=== PATIENT | female | born 1930 ===

== ENCOUNTER 2018-07-10 13:00 | Inpatient (IN) | payer MEDICARE, OTHER ==
[2018-07-10] MEDS ORDERED: Sodium Chloride 0.9% 500 ML IV STA (13:25)
--- NOTE | 2018-07-10 13:30 | ED PDOC ---
HPI: Abdomen Time Seen by Provider: 07/10/18 13:12 Chief Complaint (Nursing): Abdominal Pain Chief Complaint (Provider): Abdominal Pain History Per: Patient History/Exam Limitations: no limitations Onset/Duration Of Symptoms: Days (x1) Current Symptoms Are (Timing): Still Present Location Of Pain/Discomfort: Diffuse Associated Symptoms: Nausea, Diarrhea. denies: Fever, Vomiting, Chest Pain Additional Complaint(s): 87 year old female with a past medical history of coronary artery disease, hypertension, and hypercholesterolemia who is presenting to the ED for evaluation of abdominal pain onset yesterday. Patient states that she experienced some nausea yesterday but no vomiting and admits that she sometimes has diarrhea. She denies any chest pain, shortness of breath, urinary symptoms, fevers, or headaches. Patient offers no other medical complaints at this time. PMD: Ger Orozco Past Medical History Reviewed: Historical Data, Nursing Documentation, Vital Signs Vital Signs: Last Vital Signs Temp 97.3 F L 07/10/18 13:04 Pulse 99 H 07/10/18 13:04 Resp 17 07/10/18 13:04 BP 155/82 H 07/10/18 13:04 Pulse Ox 96 07/10/18 13:04 - Medical History PMH: CAD, HTN, Hypercholesterolemia - Surgical History Surgical History: Cholecystectomy Comment Only: Coronary Stent (pt denies) - Family History Family History: States: Unknown Family Hx - Social History Current smoker - smoking cessation education provided: No Alcohol: None Drugs: Denies - Home Medications Home Medications: Ambulatory Orders Medication Instructions Recorded Metoprolol Tartrate 50 mg PO DAILY 04/11/14 Omeprazole 20 mg PO DAILY 04/11/14 Pravastatin Sodium [Pravastatin] 20 mg PO HS 04/11/14 Zolpidem Tartrate [Zolpidem] 10 mg PO HS 04/11/14 Famotidine [Pepcid] 20 mg PO DAILY #4 tab 12/19/14 - Allergies Allergies/Adverse Reactions: Allergies Allergy/AdvReac Type Severity Reaction Status Date / Time acetaminophen [From Percocet] Allergy RASH Verified 07/10/18 13:08 codeine Allergy RASH Verified 07/10/18 13:08 oxycodone [From Percocet] Allergy RASH Verified 07/10/18 13:08 Review of Systems ROS Statement: Except As Marked, All Systems Reviewed And Found Negative Constitutional: Negative for: Fever Cardiovascular: Negative for: Chest Pain Respiratory: Negative for: Shortness of Breath Gastrointestinal: Positive for: Nausea, Abdominal Pain, Diarrhea. Negative for: Vomiting Genitourinary Female: Negative for: Dysuria, Frequency, Incontinence Neurological: Negative for: Headache Physical Exam - Reviewed Nursing Documentation Reviewed: Yes Vital Signs Reviewed: Yes - Physical Exam Appears: Positive for: Non-toxic, No Acute Distress Head Exam: Positive for: ATRAUMATIC, NORMAL INSPECTION, NORMOCEPHALIC Skin: Positive for: Normal Color, Warm, DRY Eye Exam: Positive for: EOMI, Normal appearance, PERRL Neck: Positive for: Normal, Painless ROM Cardiovascular/Chest: Positive for: Regular Rate, Rhythm. Negative for: Murmur Respiratory: Positive for: Normal Breath Sounds. Negative for: Respiratory Distress Gastrointestinal/Abdominal: Positive for: Soft, Tenderness (tenderness to midline of abdomen ) Back: Positive for: Normal Inspection. Negative for: L CVA Tenderness, R CVA Tenderness, Vertebral Tenderness Extremity: Positive for: Normal ROM. Negative for: Deformity, Swelling Neurological/Psych: Positive for: Awake, Alert, Normal Tone, Oriented. Negative for: Motor/Sensory Deficits - Laboratory Results Result Diagrams: 07/10/18 13:10 - ECG O2 Sat by Pulse Oximetry: 96 (RA) Pulse Ox Interpretation: Normal - Progress ED Course And Treament: 1442: Stable. Dr. Montero to fu ct and labs. Medical Decision Making Medical Decision Making: Time: 13:17 Plan: --CT Abd/Pelvis --EKG --CMP --Lipase --Troponin --ED urine Dipstick --CBC --IV Fluids --Pepcid 20 mg IVP --Zofran 4 mg IV Scribe Attestation: Documented by Janice Peraza, acting as a scribe for Emmanuel Duckworth MD. Provider Scribe Attestation: All medical record entries made by the Scribe were at my direction and personally dictated by me. I have reviewed the chart and agree that the record accurately reflects my personal performance of the history, physical exam, medical decision making, and the department course for this patient. I have also personally directed, reviewed, and agree with the discharge instructions and disposition. Disposition - Clinical Impression Clinical Impression: Abdominal pain - Patient ED Disposition Is Patient to be Admitted: Transfer of Care - Disposition Disposition: Transfer of Care Disposition Time: 14:42 Condition: FAIR Forms: [employer] Menu (Persian) Patient Signed Over To: Renay Montero
[2018-07-10] MEDS ORDERED: Iohexol 240 (50 ml) PO ONE (13:41)
[2018-07-10 14:01] LABS: BASO % 0.1 % (0.0-2.0); HEMOGLOBIN 14.8 g/dL (12.0-16.0); LYMPH # 0.8 K/uL (1.0-4.3); LYMPH % 4.8 % (20.0-40.0); MEAN CELL VOLUME 90.5 fl (81.0-99.0); MEAN CORPUSCULAR HEMOGLOBIN 29.8 pg (27.0-31.0); MEAN CORPUSCULAR HGB CONC 32.9 g/dL (33.0-37.0); MEAN PLATELET VOLUME 8.7 fl (7.2-11.7); MONO # 0.7 K/uL (0.0-0.8); MONO % 4.5 % (0.0-10.0); NEUT # 14.7 K/uL (1.8-7.0); NEUT % 90.6 % (50.0-75.0); NRBC % 0.1 % (0.0-0.0); PLATELET COUNT 228 K/uL (130-400); RBC 4.96 Mil/uL (3.80-5.20); RED CELL DISTRIBUTION WIDTH 14.2 % (11.5-14.5); WHITE BLOOD COUNT 16.3 K/uL (4.8-10.8)
[2018-07-10 14:45] LABS: ALB/GLOB RATIO 1.3 (1.0-2.1); ALBUMIN 3.8 g/dL (3.5-5.0); ALT/SGPT 14 U/L (9-52); AST/SGOT 24 U/L (14-36); BLOOD UREA NITROGEN 24 mg/dl (7-17); CALCIUM 9.8 mg/dL (8.4-10.2); GFR NON-AFRICAN AMERICAN > 60; LIPASE 115 U/L (23-300)
[2018-07-10] MEDS ORDERED: Iohexol 300 100 ML IJ ONE (15:13)
[2018-07-10] MEDS ORDERED: Sodium Chloride 0.9% 50 ML IV ONE (15:13)
--- NOTE | 2018-07-10 15:27 | ED PDOC ---
- Laboratory Results Result Diagrams: 07/10/18 13:10 07/10/18 13:10 Lab Results: Troponin I < 0.0120 ng/mL (0.00-0.120) 07/10/18 13:10 Total Bilirubin 0.7 mg/dl (0.2-1.3) 07/10/18 13:10 AST 24 U/L (14-36) 07/10/18 13:10 ALT 14 U/L (9-52) 07/10/18 13:10 Alkaline Phosphatase 73 U/L (38-126) 07/10/18 13:10 Total Protein 6.7 G/DL (6.3-8.2) 07/10/18 13:10 Albumin 3.8 g/dL (3.5-5.0) 07/10/18 13:10 Globulin 3.0 gm/dL (2.2-3.9) 07/10/18 13:10 Albumin/Globulin Ratio 1.3 (1.0-2.1) 07/10/18 13:10 Lipase 115 U/L (23-300) 07/10/18 13:10 - ECG O2 Sat by Pulse Oximetry: 96 (RA) Pulse Ox Interpretation: Normal Medical Decision Making Medical Decision Making: Time: 15:00 Patient with abdominal pain and leukocytosis was endorsed to me by Dr. Duckworth pending CT. Accession No. : [id number] Patient Name / ID : ROLANDO DIAZ D / [id number] Exam Date : 07/10/2018 15:26:46 ( Approved ) Study Comment : Sex / Age : F / 87Y Creator : Anabella Pina Dictator : Anabella Pina Big Data Developer : Maintenance Helper : Anabella Pina Approver2 : Report Date : 07/10/2018 16:24:01 My Comment : Date of service: 07/10/2018 PROCEDURE: CT Abdomen and Pelvis with contrast HISTORY: abd pain COMPARISON: None. TECHNIQUE: Contrast dose: 85 mL of Omnipaque 300 Radiation dose: Total exam DLP = 382.91 mGy-cm. This CT exam was performed using one or more of the following dose reduction techniques: Automated exposure control, adjustment of the mA and/or kV according to patient size, and/or use of iterative reconstruction technique. FINDINGS: LOWER THORAX: Subsegmental atelectatic changes at the left lung base noted. Concomitant underlying mass here cannot be excluded. Follow-up recommended. This is likely in part associated with compressive atelectasis from a large hiatal hernia in the inferior left hemithorax. LIVER: Unremarkable. No gross lesion or ductal dilatation. Small amount of fluid borders the inferior right hepatic lobe. GALLBLADDER AND BILE DUCTS: Not identified. No gross clips here seen. Clinical correlation is needed. PANCREAS: Unremarkable. No gross lesion or ductal dilatation. SPLEEN: Unremarkable. ADRENALS: Unremarkable. No mass. KIDNEYS AND URETERS: Parapelvic and bilateral renal hypodense masses probably relating to incidental concomitant renal cysts. The right appear largely parapelvic that on the left are smaller parapelvic and probably a and the larger 1 is posterior cortical measuring 1.6 cm. No hydronephrosis. No solid mass. VASCULATURE: No aortic aneurysm. There is presence of aortic atherosclerotic calcification and mural plaque on cross sectional studies. BOWEL: There is diffuse and extensive small bowel dilatation present compatible with a distal small bowel obstruction.. The dilatation extends down into the pelvis-no obstructing mass is identified. The colon is collapsed. A few colonic left and more numerous and extensive right colonic diverticuli are present. There is more extensive right sided colonic diverticulosis noted. APPENDIX: Portion of the appendix is a is believed identified and unremarkable. PERITONEUM: Trace amount of fluid is seen around the liver. Free air seen. Anterior abdominal wall postsurgical changes noted. LYMPH NODES: Unremarkable. No enlarged lymph nodes. BLADDER: Unremarkable. REPRODUCTIVE: Postmenopausal appearing uterus with large central calcification-probably an old calcified fibroid measuring approximately 13 mm in size near the fundus. No adnexal masses noted. BONES: T6 abnormal bone mineralization is noted. 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 This is in addition to prominent spondylosis. Clinical correlation with any known osseous or hematological medical pathology is needed. OTHER FINDINGS: None. IMPRESSION: Extensive small bowel dilatation without distal obstructing mass-a distal small bowel obstruction is suspect. Is fluid around the hepatic margin is noted. No free air seen. Colon is collapsed. Colonic diverticulosis-right colon greater than left. Distal small bowel obstruction was called in and directly discussed with the ER physician Dr. oMntero At 4:23 p.m. on 07/10/2018. It was also noted that the patient has a large hiatal hand hernia and this was conveyed as well in terms of any NG tube placement. Other findings as above. ELIJAH Cowan Hospitalist for Clinic patients. ELIJAH Candelaria Surgery resident. - Scribe Attestation: Documented by Janice Peraza, acting as a scribe for Renay Montero MD. Provider Scribe Attestation: All medical record entries made by the Scribe were at my direction and personal ly dictated by me. I have reviewed the chart and agree that the record accurately reflects my personal performance of the history, physical exam, medical decision making, and the department course for this patient. I have also personally directed, reviewed, and agree with the discharge instructions and disposition. Disposition - Clinical Impression Clinical Impression: Small bowel obstruction - POA Present On Arrival: None - Disposition Disposition: Admitted as In-Patient Disposition Time: 16:00 Condition: FAIR
[2018-07-10 15:47] LABS: LYMPHOCYTE 5 % (20-50); MONOCYTE 4 % (0-10); NEUTROPHIL 91 % (42-75); PLATELET ESTIMATE NORMAL (NORMAL); TOTAL CELLS COUNTED 100
--- NOTE | 2018-07-10 16:27 | CT ---
Date of service: 07/10/2018 PROCEDURE: CT Abdomen and Pelvis with contrast HISTORY: abd pain COMPARISON: None. TECHNIQUE: Contrast dose: 85 mL of Omnipaque 300 Radiation dose: Total exam DLP = 382.91 mGy-cm. This CT exam was performed using one or more of the following dose reduction techniques: Automated exposure control, adjustment of the mA and/or kV according to patient size, and/or use of iterative reconstruction technique. FINDINGS: LOWER THORAX: Subsegmental atelectatic changes at the left lung base noted. Concomitant underlying mass here cannot be excluded. Follow-up recommended. This is likely in part associated with compressive atelectasis from a large hiatal hernia in the inferior left hemithorax. LIVER: Unremarkable. No gross lesion or ductal dilatation. Small amount of fluid borders the inferior right hepatic lobe. GALLBLADDER AND BILE DUCTS: Not identified. No gross clips here seen. Clinical correlation is needed. PANCREAS: Unremarkable. No gross lesion or ductal dilatation. SPLEEN: Unremarkable. ADRENALS: Unremarkable. No mass. KIDNEYS AND URETERS: Parapelvic and bilateral renal hypodense masses probably relating to incidental concomitant renal cysts. The right appear largely parapelvic that on the left are smaller parapelvic and probably a and the larger 1 is posterior cortical measuring 1.6 cm. No hydronephrosis. No solid mass. VASCULATURE: No aortic aneurysm. There is presence of aortic atherosclerotic calcification and mural plaque on cross sectional studies. BOWEL: There is diffuse and extensive small bowel dilatation present compatible with a distal small bowel obstruction.. The dilatation extends down into the pelvis-no obstructing mass is identified. The colon is collapsed. A few colonic left and more numerous and extensive right colonic diverticuli are present. There is more extensive right sided colonic diverticulosis noted. APPENDIX: Portion of the appendix is a is believed identified and unremarkable. PERITONEUM: Trace amount of fluid is seen around the liver. Free air seen. Anterior abdominal wall postsurgical changes noted. LYMPH NODES: Unremarkable. No enlarged lymph nodes. BLADDER: Unremarkable. REPRODUCTIVE: Postmenopausal appearing uterus with large central calcification-probably an old calcified fibroid measuring approximately 13 mm in size near the fundus. No adnexal masses noted. BONES: T6 abnormal bone mineralization is noted. 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 This is in addition to prominent spondylosis. Clinical correlation with any known osseous or hematological medical pathology is needed. OTHER FINDINGS: None. IMPRESSION: Extensive small bowel dilatation without distal obstructing mass-a distal small bowel obstruction is suspect. Is fluid around the hepatic margin is noted. No free air seen. Colon is collapsed. Colonic diverticulosis-right colon greater than left. Distal small bowel obstruction was called in and directly discussed with the ER physician Dr. Montero At 4:23 p.m. on 07/10/2018. It was also noted that the patient has a large hiatal hand hernia and this was conveyed as well in terms of any NG tube placement. Other findings as above.
--- NOTE | 2018-07-10 17:16 | CP.PCM.CON ---
<Tremayne Candelaria - Last Filed: 07/11/18 01:23> History of Present Illness - History of Present Illness History of Present Illness: General Surgery Consult Note for Dr. Mendez Reason for consult: SBO 87 F with PMH that includes of hypertension, hyperlipidemia, multiple abdominal surgeries and Alzheimer's dementia presents to [facility] ED today with complaints of diffuse worsening abdominal pain for 2 days. Patient was seen and evaluated in the ED. She also reports associated with abdominal bloating, poor appetite and nausea. Patient reports she has intermittent abdominal pain for 6 months but got worse last 2 days. Reports last BM 1 day ago. Patient reports to passing flatus today. Patient reports having a presumed left hemicolectomy about 30 yrs ago for diverticulitis. She also admits to previous SBOs. Denies fever/chills, chest pain, dyspnea, diarrhea, incontinence, urinary symptoms. PMD: Dr. Orozco PMH: hypertension, hyperlipidemia, GERD, insomnia, Alzheimer's dementia, diverticulitis, diverticulosis PSH: open cholecystectomy, left hemicolectomy for diverticulitis, Allergies: Percocet causes hallucination; Codeine causes rash; tylenol Meds: family friend to bring in list Social: denies smoking cigarettes, drinking Etoh or illicit drugs Review of Systems - Review of Systems All systems: reviewed and no additional remarkable complaints except (as per HPI) Past Patient History - Past Social History Alcohol: None Drugs: Denies - CARDIAC Hx Hypercholesterolemia: Yes Hx Hypertension: Yes - GASTROINTESTINAL Other/Comment: hx abdominal surgeries - PSYCHIATRIC Hx Substance Use: No - SURGICAL HISTORY Hx Cholecystectomy: Yes Hx Coronary Stent: (pt denies) - ANESTHESIA Hx Anesthesia: Yes Meds Allergies/Adverse Reactions: Allergies Allergy/AdvReac Type Severity Reaction Status Date / Time acetaminophen [From Percocet] Allergy RASH Verified 07/10/18 13:08 codeine Allergy RASH Verified 07/10/18 13:08 oxycodone [From Percocet] Allergy RASH Verified 07/10/18 13:08 - Medications Medications: Current Medications Sodium Chloride (Sodium Chloride 0.9%) 500 mls @ 100 mls/hr IV .Q5H STA Stop: 07/10/18 18:24 Last Admin: 07/10/18 13:44 Dose: 100 mls/hr Physical Exam - Constitutional Appears: No Acute Distress - Head Exam Head Exam: ATRAUMATIC, NORMOCEPHALIC - Eye Exam Eye Exam: EOMI, Normal appearance Pupil Exam: PERRL - ENT Exam ENT Exam: Mucous Membranes Moist - Respiratory Exam Respiratory Exam: NORMAL BREATHING PATTERN - Cardiovascular Exam Cardiovascular Exam: REGULAR RHYTHM - GI/Abdominal Exam GI & Abdominal Exam: Distended (mild), Hypoactive Bowel Sounds, Soft. absent: Firm, Guarding, Hernia, Rigid, Tenderness Additional comments: mildine scar from laparotomy, quentin scar from open cholecystectomy - Rectal Exam Rectal Exam: Deferred - Extremities Exam Extremities exam: Positive for: normal capillary refill, pedal pulses present. Negative for: calf tenderness - Back Exam Back exam: absent: CVA tenderness (L), CVA tenderness (R) - Neurological Exam Neurological exam: Alert - Psychiatric Exam Psychiatric exam: Normal Affect, Normal Mood - Skin Skin Exam: Dry, Intact, Normal Color, Warm Results - Vital Signs Recent Vital Signs: Last Vital Signs Temp 97.3 F L 07/10/18 13:04 Pulse 99 H 07/10/18 13:04 Resp 17 07/10/18 13:04 BP 155/82 H 07/10/18 13:04 Pulse Ox 96 07/10/18 15:27 - Labs Result Diagrams: 07/10/18 13:10 07/10/18 13:10 Labs: Laboratory Results - last 24 hr 07/10/18 07/10/18 13:10 13:10 WBC 16.3 H D RBC 4.96 Hgb 14.8 Hct 44.9 MCV 90.5 MCH 29.8 MCHC 32.9 L RDW 14.2 Plt Count 228 MPV 8.7 Neut % (Auto) 90.6 H Lymph % (Auto) 4.8 L [place] % (Auto) 4.5 Eos % (Auto) 0.0 Baso % (Auto) 0.1 Neut # (Auto) 14.7 H Lymph # (Auto) 0.8 L [place] # (Auto) 0.7 Eos # (Auto) 0.0 Baso # (Auto) 0.0 Neutrophils % (Manual) 91 H Lymphocytes % (Manual) 5 L Monocytes % (Manual) 4 Platelet Estimate Normal RBC Morphology Normal Sodium 137 Potassium 3.9 Chloride 102 Carbon Dioxide 22 Anion Gap 17 BUN 24 H Creatinine 0.8 Est GFR ( Amer) > 60 Est GFR (Non-Af Amer) > 60 Random Glucose 126 H Calcium 9.8 Total Bilirubin 0.7 AST 24 ALT 14 Alkaline Phosphatase 73 Troponin I < 0.0120 Total Protein 6.7 Albumin 3.8 Globulin 3.0 Albumin/Globulin Ratio 1.3 Lipase 115 Assessment & Plan - Assessment and Plan (Free Text) Assessment: 87 F with PMH that includes of hypertension, hyperlipidemia, multiple abdominal surgeries and Alzheimer's dementia presents with SBO Plan: -NPO -NGT insertion -low intermittent suction -Pain control -Anti-emetics PRN -Strict I's & O's -ENcourage ambulation and OOB -Serial abd exams -Monitor for Bowel function -Discussed with Dr. Nascimento PGY2 - Date & Time Date: 07/11/18 Time: 19:36 <Wilder Bullock - Last Filed: 07/11/18 12:22> Meds - Medications Medications: Current Medications Alprazolam (Xanax) 0.5 mg NG HS PRN PRN Reason: Anxiety Last Admin: 07/10/18 22:39 Dose: 0.5 mg Bacitracin (Bacitracin Oint) 1 applic TOP BID [facility] Last Admin: 07/11/18 08:47 Dose: 1 applic Donepezil HCl (Aricept) 10 mg NG HS [facility] Last Admin: 07/10/18 22:39 Dose: 10 mg Lactated Ringer's (Lactated Ringer's) 1,000 mls @ 125 mls/hr IV .Q8H [facility] Last Admin: 07/11/18 08:48 Dose: 125 mls/hr Ketorolac Tromethamine (Toradol) 15 mg IVP Q6 PRN PRN Reason: Pain, moderate (4-7) Ketorolac Tromethamine (Toradol) 30 mg IVP Q6 PRN PRN Reason: Pain, severe (8-10) Last Admin: 07/11/18 08:41 Dose: 30 mg Metoprolol Succinate (Toprol Xl) 50 mg PO DAILY [facility] Last Admin: 07/11/18 08:47 Dose: 50 mg Mirtazapine (Remeron) 30 mg PO HS [facility] Last Admin: 07/10/18 22:39 Dose: 30 mg Ondansetron HCl (Zofran Inj) 4 mg IVP Q6 PRN PRN Reason: Nausea/Vomiting Last Admin: 07/10/18 20:15 Dose: 4 mg Pantoprazole Sodium (Protonix Inj) 40 mg IVP DAILY [facility] Last Admin: 07/11/18 08:44 Dose: 40 mg Pravastatin Sodium (Pravachol) 20 mg PO HS [facility] Last Admin: 07/10/18 22:39 Dose: 20 mg Results - Vital Signs Recent Vital Signs: Last Vital Signs Temp 98.2 F 07/11/18 08:22 Pulse 80 07/11/18 08:47 Resp 18 07/11/18 08:22 BP 116/68 07/11/18 08:47 Pulse Ox 93 L 07/11/18 08:22 - Labs Result Diagrams: 07/11/18 05:35 07/11/18 05:35 Labs: Laboratory Results - last 24 hr 07/10/18 07/10/18 07/10/18 13:10 13:10 19:55 WBC 16.3 H D RBC 4.96 Hgb 14.8 Hct 44.9 MCV 90.5 MCH 29.8 MCHC 32.9 L RDW 14.2 Plt Count 228 MPV 8.7 Neut % (Auto) 90.6 H Lymph % (Auto) 4.8 L [place] % (Auto) 4.5 Eos % (Auto) 0.0 Baso % (Auto) 0.1 Neut # (Auto) 14.7 H Lymph # (Auto) 0.8 L [place] # (Auto) 0.7 Eos # (Auto) 0.0 Baso # (Auto) 0.0 Neutrophils % (Manual) 91 H Lymphocytes % (Manual) 5 L Monocytes % (Manual) 4 Platelet Estimate Normal RBC Morphology Normal PT INR APTT Sodium 137 Potassium 3.9 Chloride 102 Carbon Dioxide 22 Anion Gap 17 BUN 24 H Creatinine 0.8 Est GFR ( Amer) > 60 Est GFR (Non-Af Amer) > 60 Random Glucose 126 H Lactic Acid Calcium 9.8 Phosphorus Magnesium Total Bilirubin 0.7 AST 24 ALT 14 Alkaline Phosphatase 73 Troponin I < 0.0120 Total Protein 6.7 Albumin 3.8 Globulin 3.0 Albumin/Globulin Ratio 1.3 Lipase 115 Urine Color Yellow Urine Clarity Clear Urine pH 6.0 Ur Specific [place] > 1.060 H Urine Protein Negative Urine Glucose (UA) Neg Urine Ketones Negative Urine Blood Negative Urine Nitrate Negative Urine Bilirubin Negative Urine Urobilinogen 0.2-1.0 Ur Leukocyte Esterase Neg Urine RBC (Auto) 1 Urine Microscopic WBC 3 Ur Squamous Epith Cells 1 Blood Type Antibody Screen BBK History Checked 07/10/18 07/10/18 07/11/18 20:00 20:00 05:35 WBC 3.3 L D RBC 4.91 Hgb 14.7 Hct 44.4 MCV 90.5 MCH 30.1 MCHC 33.2 RDW 14.4 Plt Count 212 MPV 8.7 Neut % (Auto) 54.6 Lymph % (Auto) 30.2 [place] % (Auto) 14.2 H Eos % (Auto) 0.6 Baso % (Auto) 0.4 Neut # (Auto) 1.8 Lymph # (Auto) 1.0 [place] # (Auto) 0.5 Eos # (Auto) 0.0 Baso # (Auto) 0.0 Neutrophils % (Manual) Lymphocytes % (Manual) Monocytes % (Manual) Platelet Estimate RBC Morphology PT 12.1 INR 1.1 APTT 32.2 Sodium Potassium Chloride Carbon Dioxide Anion Gap BUN Creatinine Est GFR ( Amer) Est GFR (Non-Af Amer) Random Glucose Lactic Acid Calcium Phosphorus Magnesium Total Bilirubin AST ALT Alkaline Phosphatase Troponin I Total Protein Albumin Globulin Albumin/Globulin Ratio Lipase Urine Color Urine Clarity Urine pH Ur Specific [place] Urine Protein Urine Glucose (UA) Urine Ketones Urine Blood Urine Nitrate Urine Bilirubin Urine Urobilinogen Ur Leukocyte Esterase Urine RBC (Auto) Urine Microscopic WBC Ur Squamous Epith Cells Blood Type A POSITIVE Antibody Screen Negative BBK History Checked Patient has bt 07/11/18 07/11/18 05:35 06:20 WBC RBC Hgb Hct MCV MCH MCHC RDW Plt Count MPV Neut % (Auto) Lymph % (Auto) [place] % (Auto) Eos % (Auto) Baso % (Auto) Neut # (Auto) Lymph # (Auto) [place] # (Auto) Eos # (Auto) Baso # (Auto) Neutrophils % (Manual) Lymphocytes % (Manual) Monocytes % (Manual) Platelet Estimate RBC Morphology PT INR APTT Sodium 138 Potassium 3.7 Chloride 99 Carbon Dioxide 26 Anion Gap 17 BUN 23 H Creatinine 1.1 Est GFR ( Amer) 57 Est GFR (Non-Af Amer) 47 Random Glucose 106 H Lactic Acid 1.5 Calcium 9.4 Phosphorus 3.9 Magnesium 1.8 Total Bilirubin 1.0 AST 19 ALT 20 Alkaline Phosphatase 70 Troponin I Total Protein 6.4 Albumin 3.6 Globulin 2.8 Albumin/Globulin Ratio 1.3 Lipase Urine Color Urine Clarity Urine pH Ur Specific [place] Urine Protein Urine Glucose (UA) Urine Ketones Urine Blood Urine Nitrate Urine Bilirubin Urine Urobilinogen Ur Leukocyte Esterase Urine RBC (Auto) Urine Microscopic WBC Ur Squamous Epith Cells Blood Type Antibody Screen BBK History Checked Assessment & Plan - Assessment and Plan (Free Text) Plan: All medical record entries made by the resident were at my direction. I have reviewed the chart and agree that the record accurately reflects my personal performance of the history, physical exam, medical decision making. I have also personally directed, reviewed, and agree with the managemet plan
--- NOTE | 2018-07-10 19:36 | CP.PCM.HP ---
History of Present Illness - History of Present Illness History of Present Illness: History obtained from patient, patient's niece over the phone and review of medical record. CC: abdominal pain HPI: 87 year old female with PMHx hypertension, hyperlipidemia, GERD, insomnia and cognitive impairement presents to [facility] ED today with complaints of diffuse worsening abdominal pain x 2 days associated with abdominal bloating, poor appetite and nausea. Patient reports she has intermittent abdominal pain for 6 months but got worse last 2 days. Reports last BM yesterday (small and hard stool) and last flatus last night at 9 pm. Patient reports hx partial colectomy >30 yrs ago due to colon mass but denies having any colon CA. Denies vomiting, fever or chills. Denies chest pain, dyspnea, cough or dysuria. ROS: All 12 systems reviewed and negative except as mentioned above PMD: Dr. Orozco PMHx: hypertension, hyperlipidemia, GERD, insomnia , cognitive impairement, colon mass s/p resection >30 yrs ago. Surgical hx: cholecystectomy, hx partial colectomy >30 yrs ago Social hx: denies smoking cigarettes, drinking Etoh or using drugs Allergies: Percocet causes hallucination; Codeine causes rash Meds: reviewed Present on Admission - Present on Admission Any Indicators Present on Admission: No Review of Systems - Review of Systems Review of Systems: All 12 systems reviewed and negative except as mentioned in HPI Past Patient History - Past Social History Alcohol: None Drugs: Denies - CARDIAC Hx Hypercholesterolemia: Yes Hx Hypertension: Yes - GASTROINTESTINAL Other/Comment: hx abdominal surgeries - PSYCHIATRIC Hx Substance Use: No - SURGICAL HISTORY Hx Cholecystectomy: Yes Hx Coronary Stent: (pt denies) - ANESTHESIA Hx Anesthesia: Yes Meds Allergies/Adverse Reactions: Allergies Allergy/AdvReac Type Severity Reaction Status Date / Time acetaminophen [From Percocet] Allergy RASH Verified 07/10/18 13:08 codeine Allergy RASH Verified 07/10/18 13:08 oxycodone [From Percocet] Allergy RASH Verified 07/10/18 13:08 Physical Exam - Constitutional Appears: Non-toxic, No Acute Distress - Head Exam Head Exam: NORMAL INSPECTION - Eye Exam Eye Exam: Normal appearance - ENT Exam ENT Exam: Mucous Membranes Moist - Neck Exam Neck exam: Positive for: Normal Inspection - Respiratory Exam Respiratory Exam: Clear to Auscultation Bilateral, NORMAL BREATHING PATTERN. absent: Rales, Rhonchi, Wheezes - Cardiovascular Exam Cardiovascular Exam: REGULAR RHYTHM, +S1, +S2 - GI/Abdominal Exam GI & Abdominal Exam: Distended, Hyperactive Bowel Sounds, Soft, Tenderness (mild lower abdominal tenderness.). absent: Guarding, Rebound, Rigid - Extremities Exam Extremities exam: Positive for: normal inspection. Negative for: calf tenderness - Back Exam Back exam: absent: CVA tenderness (L), CVA tenderness (R) - Neurological Exam Neurological exam: Alert, Oriented x3 - Psychiatric Exam Psychiatric exam: Anxious, Normal Affect - Skin Skin Exam: Normal Color Results - Vital Signs Recent Vital Signs: Last Vital Signs Temp 97.3 F L 07/10/18 13:04 Pulse 99 H 07/10/18 13:04 Resp 17 07/10/18 13:04 BP 155/82 H 07/10/18 13:04 Pulse Ox 96 07/10/18 15:27 - Labs Result Diagrams: 07/10/18 13:10 07/10/18 13:10 Labs: Laboratory Results - last 24 hr 07/10/18 07/10/18 13:10 13:10 WBC 16.3 H D RBC 4.96 Hgb 14.8 Hct 44.9 MCV 90.5 MCH 29.8 MCHC 32.9 L RDW 14.2 Plt Count 228 MPV 8.7 Neut % (Auto) 90.6 H Lymph % (Auto) 4.8 L [place] % (Auto) 4.5 Eos % (Auto) 0.0 Baso % (Auto) 0.1 Neut # (Auto) 14.7 H Lymph # (Auto) 0.8 L [place] # (Auto) 0.7 Eos # (Auto) 0.0 Baso # (Auto) 0.0 Neutrophils % (Manual) 91 H Lymphocytes % (Manual) 5 L Monocytes % (Manual) 4 Platelet Estimate Normal RBC Morphology Normal Sodium 137 Potassium 3.9 Chloride 102 Carbon Dioxide 22 Anion Gap 17 BUN 24 H Creatinine 0.8 Est GFR ( Amer) > 60 Est GFR (Non-Af Amer) > 60 Random Glucose 126 H Calcium 9.8 Total Bilirubin 0.7 AST 24 ALT 14 Alkaline Phosphatase 73 Troponin I < 0.0120 Total Protein 6.7 Albumin 3.8 Globulin 3.0 Albumin/Globulin Ratio 1.3 Lipase 115 Assessment & Plan - Assessment and Plan (Free Text) Assessment: 87 year old female with PMHx hypertension, hyperlipidemia, GERD, insomnia and cognitive impairement presents to [facility] ED today with complaints of diffuse worsening abdominal pain x 2 days associated with abdominal bloating, poor appetite and nausea. in the ED, CT A/P shows small bowel obstruction. Patient is admitted for management of SBO Plan: Small bowel obstruction with leukocytosis -CT A/P: IMPRESSION:Extensive small bowel dilatation without distal obstructing mass-a distal small bowel obstruction is suspect. Is fluid around the hepatic margin is noted. No free air seen. Colon is collapsed. Colonic diverticulosis-right colon greater than left. It was also noted that the patient has a large hiatal hand hernia and this was conveyed as well in terms of any NG tube placement. -Afebrile with elevated BP -WBC 16.3 likely secondary to volume contaction and dehydration -Consult general surgery, Dr. Mendez, f/u recs -NPO -NGT placement by general surgery -Pain management with toradol for now considering hx of percocet and codeine reactions -Anti-emetics -Monitor symptoms -f/u AM labs, UA, urine cx Hiatal hernia -c/w protonix 40 mg IVP Hypertension -resume metoprolol succinated 50 mg ER Hyperlipidemia -resume pravastatin 20 mg po hs GERD -start protonix 40 mg IVP Cognitive impairment -resume aricept Insominia/anxiety -resume remeron and aricept DVT prophylaxis -SCDs for now Plan discussed with Dr. Ernesto Hawkins, pgy-2
[2018-07-10] MEDS ORDERED: Chlorhexidine Gluconate 1 APPL/PKT TP ONE (20:04)
[2018-07-10] MEDS: Lactated Ringer's 1,000 ML IV SCH (20:27)
[2018-07-10 21:18] LABS: INR 1.1; PROTHROMBIN TIME 12.1 Seconds (9.8-13.1)
[2018-07-10 21:20] LABS: PARTIAL THROMBOPLASTIN TIME 32.2 Seconds (25.6-37.1)
[2018-07-10 21:23] LABS: SQUAMOUS EPITHIAL 1 /hpf (0-5); URINE BILIRUBIN NEGATIVE (NEGATIVE); URINE BLOOD NEGATIVE (NEGATIVE); URINE CLARITY CLEAR (Clear); URINE COLOR YELLOW (YELLOW); URINE GLUCOSE (UA) NEG (NEGATIVE); URINE LEUKOCYTE ESTERASE NEG Leu/uL (Negative); URINE PROTEIN NEGATIVE (NEGATIVE); URINE UROBILINOGEN 0.2-1.0 mg/dL (0.2-1.0)
[2018-07-10] MEDS: Pravastatin Sodium 20 MG TAB PO SCH (22:39)
[2018-07-10] MEDS: Bacitracin OINT 15GM TOP SCH (22:41)
[2018-07-11 04:30] VITALS: BMI 24.3
[2018-07-11 06:54] LABS: BASO % 0.4 % (0.0-2.0); EOS % 0.6 % (0.0-4.0); HEMOGLOBIN 14.7 g/dL (12.0-16.0); LYMPH % 30.2 % (20.0-40.0); MEAN CELL VOLUME 90.5 fl (81.0-99.0); MEAN CORPUSCULAR HEMOGLOBIN 30.1 pg (27.0-31.0); MEAN CORPUSCULAR HGB CONC 33.2 g/dL (33.0-37.0); MEAN PLATELET VOLUME 8.7 fl (7.2-11.7); MONO # 0.5 K/uL (0.0-0.8); MONO % 14.2 % (0.0-10.0); NEUT # 1.8 K/uL (1.8-7.0); NEUT % 54.6 % (50.0-75.0); NRBC % 0.1 % (0.0-0.0); RBC 4.91 Mil/uL (3.80-5.20); RED CELL DISTRIBUTION WIDTH 14.4 % (11.5-14.5)
[2018-07-11 07:10] LABS: WHITE BLOOD COUNT 3.3 K/uL (4.8-10.8)
[2018-07-11 07:17] LABS: ALB/GLOB RATIO 1.3 (1.0-2.1); ALBUMIN 3.6 g/dL (3.5-5.0); CALCIUM 9.4 mg/dL (8.4-10.2)
--- NOTE | 2018-07-11 07:57 | CP.PCM.PN ---
<Wolfgang Tanner - Last Filed: 07/12/18 06:42> Subjective - Date & Time of Evaluation Date of Evaluation: 07/11/18 Time of Evaluation: 07:55 - Subjective Subjective: General Surgery Consult Note for Dr. Mendez 87 F with PMH that includes of hypertension, hyperlipidemia, multiple abdominal surgeries and Alzheimer's dementia seen and evaluated at bedside. Patient states pain has improved since yesterday. Patient denies flatus or bowel movement at this time. Denies fever/chills, chest pain, dyspnea, diarrhea, incontinence, u rinary symptoms. Objective - Vital Signs/Intake and Output Vital Signs (last 24 hours): Temp Pulse Resp BP Pulse Ox 98.0 F 76 18 123/69 92 L 07/10/18 23:57 07/10/18 23:57 07/10/18 23:57 07/10/18 23:57 07/10/18 23:57 - Medications Medications: Current Medications Alprazolam (Xanax) 0.5 mg NG HS PRN PRN Reason: Anxiety Last Admin: 07/10/18 22:39 Dose: 0.5 mg Bacitracin (Bacitracin Oint) 1 applic TOP BID [facility] Last Admin: 07/10/18 22:41 Dose: 1 applic Donepezil HCl (Aricept) 10 mg NG HS [facility] Last Admin: 07/10/18 22:39 Dose: 10 mg Lactated Ringer's (Lactated Ringer's) 1,000 mls @ 125 mls/hr IV .Q8H [facility] Last Admin: 07/10/18 20:27 Dose: 125 mls/hr Ketorolac Tromethamine (Toradol) 15 mg IVP Q6 PRN PRN Reason: Pain, moderate (4-7) Ketorolac Tromethamine (Toradol) 30 mg IVP Q6 PRN PRN Reason: Pain, severe (8-10) Last Admin: 07/10/18 20:12 Dose: 30 mg Metoprolol Succinate (Toprol Xl) 50 mg PO DAILY [facility] Mirtazapine (Remeron) 30 mg PO HS [facility] Last Admin: 07/10/18 22:39 Dose: 30 mg Ondansetron HCl (Zofran Inj) 4 mg IVP Q6 PRN PRN Reason: Nausea/Vomiting Last Admin: 07/10/18 20:15 Dose: 4 mg Pantoprazole Sodium (Protonix Inj) 40 mg IVP DAILY [facility] Pravastatin Sodium (Pravachol) 20 mg PO HS [facility] Last Admin: 07/10/18 22:39 Dose: 20 mg - Labs Labs: 07/11/18 05:35 07/11/18 05:35 PT 12.1 Seconds (9.8-13.1) 07/10/18 20:00 INR 1.1 07/10/18 20:00 APTT 32.2 Seconds (25.6-37.1) 07/10/18 20:00 - Constitutional Appears: Well, Non-toxic, No Acute Distress - Head Exam Head Exam: ATRAUMATIC, NORMOCEPHALIC - ENT Exam ENT Exam: Mucous Membranes Moist - Respiratory Exam Respiratory Exam: Clear to Ausculation Bilateral. absent: Accessory Muscle Use, Respiratory Distress - Cardiovascular Exam Cardiovascular Exam: REGULAR RHYTHM, +S1, +S2 - GI/Abdominal Exam GI & Abdominal Exam: Soft, Normal Bowel Sounds. absent: Distended, Firm, Guarding, Rigid - Neurological Exam Neurological Exam: Alert, Awake, Oriented x3 - Psychiatric Exam Psychiatric exam: Normal Affect, Normal Mood Assessment and Plan - Assessment and Plan (Free Text) Assessment: 87 y/o F with PMHx that includes hypertension, hyperlipidemia, multiple abdomin al surgeries and Alzheimer's dementia presents with SBO Plan: -NPO -NGT insertion -low intermittent suction -Pain control -Anti-emetics PRN -Strict I's & O's -Encourage ambulation and OOB -Serial abd exams -Monitor for Bowel function case discussed with Dr. Chapa PGY1 <Wilder Bullock - Last Filed: 07/16/18 13:39> Subjective - Subjective Subjective: All medical record entries made by the resident were at my direction. I have reviewed the chart and agree that the record accurately reflects my personal performance of the history, physical exam, medical decision making. I have also personally directed, reviewed, and agree with the resident note Objective - Vital Signs/Intake and Output Vital Signs (last 24 hours): Temp Pulse Resp BP Pulse Ox 97.3 F L 92 H 19 134/66 94 L 07/16/18 12:20 07/16/18 12:20 07/16/18 12:20 07/16/18 12:20 07/16/18 12:20 Intake and Output: 07/16/18 07/16/18 06:59 18:59 Intake Total 925 250 Output Total 2950 400 Balance -2024 -150 - Medications Medications: Current Medications Albuterol/Ipratropium (Duoneb 3 Mg/0.5 Mg (3 Ml) Ud) 3 ml INH RQ6 PRN PRN Reason: Shortness of Breath Last Admin: 07/15/18 21:58 Dose: 3 ml Donepezil HCl (Aricept) 10 mg NG HS [facility] Last Admin: 07/16/18 01:34 Dose: Not Given Enoxaparin Sodium (Lovenox) 30 mg SC DAILY [facility]; Protocol Last Admin: 07/16/18 08:29 Dose: 30 mg Metronidazole (Flagyl 500mg/100ml Ns) 100 mls @ 100 mls/hr IVPB Q8 [facility]; Protocol Last Admin: 07/16/18 08:26 Dose: 100 mls/hr Fluconazole (Diflucan Iv 100 Mg/50 Ml Ns) 50 mls @ 50 mls/hr IVPB DAILY [facility]; Protocol Last Admin: 07/16/18 10:43 Dose: 50 mls/hr Vancomycin HCl 750 mg/ Sodium (Chloride) 250 mls @ 166.667 mls/hr IVPB Q12 [facility]; Protocol Last Admin: 07/16/18 10:44 Dose: Not Given Ketorolac Tromethamine (Toradol) 30 mg IVP Q6 PRN PRN Reason: Pain, severe (8-10) Last Admin: 07/14/18 19:06 Dose: 30 mg Mirtazapine (Remeron) 30 mg PO HS [facility] Last Admin: 07/16/18 01:35 Dose: Not Given Ondansetron HCl (Zofran Inj) 4 mg IVP Q6 PRN PRN Reason: Nausea/Vomiting Last Admin: 07/12/18 10:40 Dose: 4 mg Pantoprazole Sodium (Protonix Inj) 40 mg IVP DAILY [facility] Last Admin: 07/16/18 08:29 Dose: 40 mg Pravastatin Sodium (Pravachol) 20 mg PO HS [facility] Last Admin: 07/16/18 01:35 Dose: Not Given - Labs Labs: 07/16/18 04:20 07/16/18 04:20 PT 16.5 Seconds (9.8-13.1) H 07/12/18 23:17 INR 1.5 07/12/18 23:17 APTT 28.3 Seconds (25.6-37.1) 07/12/18 23:17
[2018-07-11] MEDS: Metoprolol Succinate 50 mg XL Tab PO SCH (08:47)
[2018-07-11] MEDS: Bacitracin OINT 15GM TOP SCH ×2 (08:47→16:42)
[2018-07-11] MEDS: Lactated Ringer's 1,000 ML IV SCH ×2 (08:48→16:35)
--- NOTE | 2018-07-11 09:07 | CARD ---
APPROVED REPORT Date of service: 07/10/2018 EKG Measurement Heart [id number] <Conclusion> Normal sinus rhythm RSR' or QR pattern in V1 suggests right ventricular conduction delay Borderline ECG
--- NOTE | 2018-07-11 10:25 | CP.PCM.PN ---
Subjective - Date & Time of Evaluation Date of Evaluation: 07/11/18 Time of Evaluation: 08:15 - Subjective Subjective: Pt seen and examined at bedside with Dr. Orozco. Reports improved abdominal pain. No nausea, vomiting or diarrhea. Objective - Vital Signs/Intake and Output Vital Signs (last 24 hours): Temp Pulse Resp BP Pulse Ox 98.2 F 80 18 116/68 93 L 07/11/18 08:22 07/11/18 08:47 07/11/18 08:22 07/11/18 08:47 07/11/18 08:22 - Medications Medications: Current Medications Alprazolam (Xanax) 0.5 mg NG HS PRN PRN Reason: Anxiety Last Admin: 07/10/18 22:39 Dose: 0.5 mg Bacitracin (Bacitracin Oint) 1 applic TOP BID [facility] Last Admin: 07/11/18 08:47 Dose: 1 applic Donepezil HCl (Aricept) 10 mg NG HS [facility] Last Admin: 07/10/18 22:39 Dose: 10 mg Lactated Ringer's (Lactated Ringer's) 1,000 mls @ 125 mls/hr IV .Q8H [facility] Last Admin: 07/11/18 08:48 Dose: 125 mls/hr Ketorolac Tromethamine (Toradol) 15 mg IVP Q6 PRN PRN Reason: Pain, moderate (4-7) Ketorolac Tromethamine (Toradol) 30 mg IVP Q6 PRN PRN Reason: Pain, severe (8-10) Last Admin: 07/11/18 08:41 Dose: 30 mg Metoprolol Succinate (Toprol Xl) 50 mg PO DAILY [facility] Last Admin: 07/11/18 08:47 Dose: 50 mg Mirtazapine (Remeron) 30 mg PO HS [facility] Last Admin: 07/10/18 22:39 Dose: 30 mg Ondansetron HCl (Zofran Inj) 4 mg IVP Q6 PRN PRN Reason: Nausea/Vomiting Last Admin: 07/10/18 20:15 Dose: 4 mg Pantoprazole Sodium (Protonix Inj) 40 mg IVP DAILY [facility] Last Admin: 07/11/18 08:44 Dose: 40 mg Pravastatin Sodium (Pravachol) 20 mg PO HS [facility] Last Admin: 07/10/18 22:39 Dose: 20 mg - Labs Labs: 07/11/18 05:35 07/11/18 05:35 PT 12.1 Seconds (9.8-13.1) 07/10/18 20:00 INR 1.1 07/10/18 20:00 APTT 32.2 Seconds (25.6-37.1) 07/10/18 20:00 - Constitutional Appears: No Acute Distress - Eye Exam Eye Exam: EOMI - ENT Exam ENT Exam: Mucous Membranes Moist - Respiratory Exam Respiratory Exam: Clear to Ausculation Bilateral, NORMAL BREATHING PATTERN. absent: Wheezes - GI/Abdominal Exam GI & Abdominal Exam: Distended, Hypoactive Bowel Sounds - Neurological Exam Neurological Exam: Alert, Awake Assessment and Plan - Assessment and Plan (Free Text) Assessment: 87 year old female with PMHx hypertension, hyperlipidemia, GERD, insomnia and cognitive impairement presents to [facility] ED today with complaints of diffuse worsening abdominal pain x 2 days associated with abdominal bloating, poor appetite and nausea. in the ED, CT A/P shows small bowel obstruction. Patient is admitted for management of SBO Plan: CT A/P: IMPRESSION:Extensive small bowel dilatation without distal obstructing mass-a distal small bowel obstruction is suspect. Is fluid around the hepatic margin is noted. No free air seen. Colon is collapsed. Colonic diverticulosis-right colon greater than left. It was also noted that the patient has a large hiatal hand hernia and this was conveyed as well in terms of any NG tube placement. Small bowel obstruction with leukocytosis -Afebrile with elevated BP -WBC 16.3 likely secondary to volume contraction and dehydration > 3.3 -General surgery, Dr. Mendez -NPO -NGT placement by general surgery -Pain management with toradol for now considering hx of percocet and codeine reactions -Anti-emetics -ivf: lr AT 125 -Monitor symptoms -f/u AM labs, UA, urine cx Hiatal hernia -c/w protonix 40 mg IVP Hypertension -resume metoprolol succinated 50 mg ER Hyperlipidemia -resume pravastatin 20 mg po hs GERD -start protonix 40 mg IVP Cognitive impairment -resume aricept Insominia/anxiety -resume remeron and aricept DVT prophylaxis -SCDs for now Plan discussed with Dr. Ernesto Cary MD PGY2
--- NOTE | 2018-07-11 10:43 | RAD ---
Date of service: 07/10/2018 PROCEDURE: CHEST RADIOGRAPH, 1 VIEW HISTORY: s/p ngt COMPARISON: 05/02/2010. Chest radiograph documenting large hiatal hernia. July 10, 2018. CT abdomen and pelvis. FINDINGS: LUNGS: Faint left lower lobe infiltrate partially obscured by hiatal hernia but confirmed on recent CT scan. PLEURA: No pneumothorax or pleural fluid seen. CARDIOVASCULAR: Atherosclerotic calcifications identified primarily aortic arch. No radiographic findings to suggest acute or significant cardiovascular disease. OSSEOUS STRUCTURES: No significant abnormalities. VISUALIZED UPPER ABDOMEN: Normal. OTHER FINDINGS: Nasogastric tube coiled in the thoracic portion of the esophagus. The tip is below the diaphragms but likely in the distal stomach. This is consistent with findings on recent CT scan and remote chest radiograph. IMPRESSION: Nasogastric tube coiled in the thoracic portion of the stomach (large hiatal hernia).
[2018-07-11 13:22] LABS: BASO % 0.4 % (0.0-2.0); EOS % 0.7 % (0.0-4.0); HEMOGLOBIN 13.9 g/dL (12.0-16.0); LYMPH # 1.4 K/uL (1.0-4.3); LYMPH % 42.7 % (20.0-40.0); MEAN CELL VOLUME 88.4 fl (81.0-99.0); MEAN CORPUSCULAR HEMOGLOBIN 30.2 pg (27.0-31.0); MEAN CORPUSCULAR HGB CONC 34.2 g/dL (33.0-37.0); MEAN PLATELET VOLUME 8.3 fl (7.2-11.7); MONO # 0.6 K/uL (0.0-0.8); MONO % 18.4 % (0.0-10.0); NEUT # 1.3 K/uL (1.8-7.0); NEUT % 37.8 % (50.0-75.0); NRBC % 0.1 % (0.0-0.0); RBC 4.61 Mil/uL (3.80-5.20); RED CELL DISTRIBUTION WIDTH 14.1 % (11.5-14.5); WHITE BLOOD COUNT 3.4 K/uL (4.8-10.8)
[2018-07-11] MEDS: Pravastatin Sodium 20 MG TAB PO SCH (21:07)
[2018-07-12] MEDS: Potassium Ch 20mEq in D5-1/2NS 1,000 ML IV SCH ×2 (02:03→09:07)
[2018-07-12 06:37] LABS: HEMOGLOBIN 13.7 g/dL (12.0-16.0); MEAN CELL VOLUME 90.8 fl (81.0-99.0); RBC 4.57 Mil/uL (3.80-5.20); RED CELL DISTRIBUTION WIDTH 14.2 % (11.5-14.5); WHITE BLOOD COUNT 4.4 K/uL (4.8-10.8)
[2018-07-12 06:52] LABS: ALB/GLOB RATIO 1.2 (1.0-2.1); ALBUMIN 3.2 g/dL (3.5-5.0); ALT/SGPT 21 U/L (9-52); AST/SGOT 17 U/L (14-36); BLOOD UREA NITROGEN 30 mg/dl (7-17); CALCIUM 8.9 mg/dL (8.4-10.2); GFR NON-AFRICAN AMERICAN 60
--- NOTE | 2018-07-12 08:07 | CP.PCM.PN ---
<Tremayne Candelaria - Last Filed: 07/12/18 09:55> Subjective - Date & Time of Evaluation Date of Evaluation: 07/12/18 Time of Evaluation: 09:55 - Subjective Subjective: General Surgery Note for Dr. Mendez Patient seen and examined at bedside. No acute event overnight. Patient admits to tenderness in abdomen still. She states it feels more distended. Patient denies flatus or BM. She remains NPO with NGT to low intermittent wall suction. NGT had 300cc/12 hrs. Admits to mild nausea. Denies fever/chills, cp, SOB, v/d, urinary symptoms. Objective - Vital Signs/Intake and Output Vital Signs (last 24 hours): Temp Pulse Resp BP Pulse Ox 97.9 F 82 18 110/65 92 L 07/11/18 23:54 07/11/18 23:54 07/11/18 23:54 07/11/18 23:54 07/11/18 23:54 - Medications Medications: Current Medications Alprazolam (Xanax) 0.5 mg NG HS PRN PRN Reason: Anxiety Last Admin: 07/10/18 22:39 Dose: 0.5 mg Bacitracin (Bacitracin Oint) 1 applic TOP BID [facility] Last Admin: 07/11/18 16:42 Dose: 1 applic Donepezil HCl (Aricept) 10 mg NG HS [facility] Last Admin: 07/11/18 21:07 Dose: 10 mg Potassium Chloride/Dextrose/Sod Cl (Potassium Chl 20 Meq In D5-1/2ns) 1,000 mls @ 100 mls/hr IV .Q10H [facility] Stop: 07/12/18 23:17 Last Admin: 07/12/18 02:03 Dose: 100 mls/hr Ketorolac Tromethamine (Toradol) 15 mg IVP Q6 PRN PRN Reason: Pain, moderate (4-7) Ketorolac Tromethamine (Toradol) 30 mg IVP Q6 PRN PRN Reason: Pain, severe (8-10) Last Admin: 07/11/18 21:17 Dose: 30 mg Metoprolol Succinate (Toprol Xl) 50 mg PO DAILY [facility] Last Admin: 07/11/18 08:47 Dose: 50 mg Mirtazapine (Remeron) 30 mg PO HS [facility] Last Admin: 07/11/18 21:07 Dose: 30 mg Ondansetron HCl (Zofran Inj) 4 mg IVP Q6 PRN PRN Reason: Nausea/Vomiting Last Admin: 07/10/18 20:15 Dose: 4 mg Pantoprazole Sodium (Protonix Inj) 40 mg IVP DAILY [facility] Last Admin: 07/11/18 08:44 Dose: 40 mg Pravastatin Sodium (Pravachol) 20 mg PO [facility] Last Admin: 07/11/18 21:07 Dose: 20 mg - Labs Labs: 07/12/18 05:50 07/12/18 05:50 PT 12.1 Seconds (9.8-13.1) 07/10/18 20:00 INR 1.1 07/10/18 20:00 APTT 32.2 Seconds (25.6-37.1) 07/10/18 20:00 - Additional Findings Additional findings: - Constitutional Appears: No Acute Distress - Head Exam Head Exam: ATRAUMATIC, NORMOCEPHALIC - Eye Exam Eye Exam: EOMI, Normal appearance Pupil Exam: PERRL - ENT Exam ENT Exam: Mucous Membranes Moist - Respiratory Exam Respiratory Exam: NORMAL BREATHING PATTERN - Cardiovascular Exam Cardiovascular Exam: REGULAR RHYTHM - GI/Abdominal Exam GI & Abdominal Exam: Distended (moderate, increased), Hypoactive Bowel Sounds, Soft, Tenderness. absent: Firm, Guarding, Hernia, Rigid Additional comments: mildine scar from laparotomy, quentin scar from open cholecystectomy - Rectal Exam Rectal Exam: Deferred - Extremities Exam Extremities exam: Positive for: normal capillary refill, pedal pulses present. Negative for: calf tenderness - Back Exam Back exam: absent: CVA tenderness (L), CVA tenderness (R) - Neurological Exam Neurological exam: Alert - Psychiatric Exam Psychiatric exam: Normal Affect, Normal Mood - Skin Skin Exam: Dry, Intact, Normal Color, Warm Assessment and Plan - Assessment and Plan (Free Text) Assessment: 87 F with PMH that includes of hypertension, hyperlipidemia, multiple abdominal surgeries and Alzheimer's dementia presents with SBO Plan: -NPO -NGT to low intermittent suction -Pain control -Anti-emetics PRN -Strict I's & O's -Encourage ambulation and OOB -Serial abd exams -Monitor for Bowel function -Plan for expploratory laparotomy today 07/12 at 2pm -Discussed with Dr. Nascimento PGY2 <Wilder Bullock - Last Filed: 07/16/18 13:38> Subjective - Subjective Subjective: All medical record entries made by the resident were at my direction. I have reviewed the chart and agree that the record accurately reflects my personal performance of the history, physical exam, medical decision making. I have also personally directed, reviewed, and agree with the resident note Objective - Vital Signs/Intake and Output Vital Signs (last 24 hours): Temp Pulse Resp BP Pulse Ox 97.3 F L 92 H 19 134/66 94 L 07/16/18 12:20 07/16/18 12:20 07/16/18 12:20 07/16/18 12:20 07/16/18 12:20 Intake and Output: 07/16/18 07/16/18 06:59 18:59 Intake Total 925 250 Output Total 2950 400 Balance -2025 -150 - Medications Medications: Current Medications Albuterol/Ipratropium (Duoneb 3 Mg/0.5 Mg (3 Ml) Ud) 3 ml INH RQ6 PRN PRN Reason: Shortness of Breath Last Admin: 07/15/18 21:58 Dose: 3 ml Donepezil HCl (Aricept) 10 mg NG HS [facility] Last Admin: 07/16/18 01:34 Dose: Not Given Enoxaparin Sodium (Lovenox) 30 mg SC DAILY [facility]; Protocol Last Admin: 07/16/18 08:29 Dose: 30 mg Metronidazole (Flagyl 500mg/100ml Ns) 100 mls @ 100 mls/hr IVPB Q8 [facility]; Protocol Last Admin: 07/16/18 08:26 Dose: 100 mls/hr Fluconazole (Diflucan Iv 100 Mg/50 Ml Ns) 50 mls @ 50 mls/hr IVPB DAILY [facility]; Protocol Last Admin: 07/16/18 10:43 Dose: 50 mls/hr Vancomycin HCl 750 mg/ Sodium (Chloride) 250 mls @ 166.667 mls/hr IVPB Q12 [facility]; Protocol Last Admin: 07/16/18 10:44 Dose: Not Given Ketorolac Tromethamine (Toradol) 30 mg IVP Q6 PRN PRN Reason: Pain, severe (8-10) Last Admin: 07/14/18 19:06 Dose: 30 mg Mirtazapine (Remeron) 30 mg PO HS [facility] Last Admin: 07/16/18 01:35 Dose: Not Given Ondansetron HCl (Zofran Inj) 4 mg IVP Q6 PRN PRN Reason: Nausea/Vomiting Last Admin: 07/12/18 10:40 Dose: 4 mg Pantoprazole Sodium (Protonix Inj) 40 mg IVP DAILY [facility] Last Admin: 07/16/18 08:29 Dose: 40 mg Pravastatin Sodium (Pravachol) 20 mg PO HS [facility] Last Admin: 07/16/18 01:35 Dose: Not Given - Labs Labs: 07/16/18 04:20 07/16/18 04:20 PT 16.5 Seconds (9.8-13.1) H 07/12/18 23:17 INR 1.5 07/12/18 23:17 APTT 28.3 Seconds (25.6-37.1) 07/12/18 23:17
[2018-07-12] MEDS: Bacitracin OINT 15GM TOP SCH (09:07)
[2018-07-12] MEDS: Metoprolol Succinate 50 mg XL Tab PO SCH (09:08)
--- NOTE | 2018-07-12 10:22 | CP.PCM.PN ---
Subjective - Date & Time of Evaluation Date of Evaluation: 07/12/18 Time of Evaluation: 08:00 - Subjective Subjective: Pt seen and examined at bedside. NO acute overnight events. Reports increased abdominal pain. Denies passing gas per rectum. Objective - Vital Signs/Intake and Output Vital Signs (last 24 hours): Temp Pulse Resp BP Pulse Ox 97.5 F L 85 19 121/74 92 L 07/12/18 08:20 07/12/18 09:08 07/12/18 08:20 07/12/18 09:08 07/12/18 08:20 - Medications Medications: Current Medications Alprazolam (Xanax) 0.5 mg NG HS PRN PRN Reason: Anxiety Last Admin: 07/10/18 22:39 Dose: 0.5 mg Bacitracin (Bacitracin Oint) 1 applic TOP BID [facility] Last Admin: 07/12/18 09:07 Dose: 1 applic Donepezil HCl (Aricept) 10 mg NG HS [facility] Last Admin: 07/11/18 21:07 Dose: 10 mg Potassium Chloride/Dextrose/Sod Cl (Potassium Chl 20 Meq In D5-1/2ns) 1,000 mls @ 100 mls/hr IV .Q10H [facility] Stop: 07/12/18 23:17 Last Admin: 07/12/18 09:07 Dose: Not Given Piperacillin Sod/Tazobactam (Sod 3.375 gm/ Sodium Chloride) 100 mls @ 100 mls /hr IVPB Q6 [facility]; Protocol Ketorolac Tromethamine (Toradol) 15 mg IVP Q6 PRN PRN Reason: Pain, moderate (4-7) Ketorolac Tromethamine (Toradol) 30 mg IVP Q6 PRN PRN Reason: Pain, severe (8-10) Last Admin: 07/11/18 21:17 Dose: 30 mg Metoprolol Succinate (Toprol Xl) 50 mg PO DAILY [facility] Last Admin: 07/12/18 09:08 Dose: 50 mg Mirtazapine (Remeron) 30 mg PO HS [facility] Last Admin: 07/11/18 21:07 Dose: 30 mg Ondansetron HCl (Zofran Inj) 4 mg IVP Q6 PRN PRN Reason: Nausea/Vomiting Last Admin: 07/10/18 20:15 Dose: 4 mg Pantoprazole Sodium (Protonix Inj) 40 mg IVP DAILY [facility] Last Admin: 07/12/18 09:08 Dose: 40 mg Pravastatin Sodium (Pravachol) 20 mg PO HS [facility] Last Admin: 07/11/18 21:07 Dose: 20 mg - Labs Labs: 07/12/18 05:50 07/12/18 05:50 PT 12.1 Seconds (9.8-13.1) 07/10/18 20:00 INR 1.1 07/10/18 20:00 APTT 32.2 Seconds (25.6-37.1) 07/10/18 20:00 - Constitutional Appears: No Acute Distress - Eye Exam Eye Exam: EOMI - ENT Exam ENT Exam: Mucous Membranes Moist - Respiratory Exam Respiratory Exam: Clear to Ausculation Bilateral, NORMAL BREATHING PATTERN. absent: Wheezes - Cardiovascular Exam Cardiovascular Exam: +S1, +S2 - GI/Abdominal Exam GI & Abdominal Exam: Distended, Guarding, Tenderness, Hypoactive Bowel Sounds - Neurological Exam Neurological Exam: Alert, Awake - Psychiatric Exam Psychiatric exam: Normal Affect, Normal Mood Assessment and Plan - Assessment and Plan (Free Text) Assessment: 87 year old female with PMHx hypertension, hyperlipidemia, GERD, insomnia and cognitive impairement presents to [facility] ED today with complaints of diffuse wo rsening abdominal pain x 2 days associated with abdominal bloating, poor appetite and nausea. in the ED, CT A/P shows small bowel obstruction. Patient is admitted for management of SBO Plan: CT A/P: IMPRESSION:Extensive small bowel dilatation without distal obstructing mass-a distal small bowel obstruction is suspect. Is fluid around the hepatic margin is noted. No free air seen. Colon is collapsed. Colonic diverticulosis-right colon greater than left. It was also noted that the patient has a large hiatal hand hernia and this was conveyed as well in terms of any NG tube placement. Small bowel obstruction with leukocytosis -Pt planned for surgery today -Afebrile with elevated BP -WBC 16.3 likely secondary to volume contraction and dehydration > 3.3 -General surgery, Dr. Mendez -NPO -NGT placement by general surgery -Pain management with toradol for now considering hx of percocet and codeine reactions -Anti-emetics -ivf: lr AT 100 Hiatal hernia -c/w protonix 40 mg IVP Hypertension -resume metoprolol succinated 50 mg ER Hyperlipidemia -resume pravastatin 20 mg po hs GERD -start protonix 40 mg IVP Cognitive impairment -resume aricept Insominia/anxiety -resume remeron and aricept DVT prophylaxis -SCDs for now Plan discussed with Dr. Ernesto Cary MD PGY2
[2018-07-12] MEDS: Piperacillin/Tazobact 3.375 GM in Sodium Chloride 0.9% 100 ML IVPB SCH ×2 (10:43→17:17)
[2018-07-12] MEDS ORDERED: Lactated Ringer's 1,000 ML IV SCH (11:45)
[2018-07-12 12:39] LABS: ABG ALLEN TEST YES; ARTERIAL BLOOD GAS HCO3 28.1 mmol/L (21-28); ARTERIAL BLOOD GAS O2 SAT 92.4 % (95-98); ARTERIAL BLOOD GAS PCO2 43 mm/Hg (35-45); ARTERIAL BLOOD GAS PH 7.44 (7.35-7.45); ARTERIAL BLOOD GAS PO2 55 mm/Hg (80-100); ARTERIAL BLOOD GAS TCO2 30.5 mmol/L (22-28)
--- NOTE | 2018-07-12 13:09 | RAD ---
Date of service: 07/12/2018 PROCEDURE: CHEST RADIOGRAPH, 1 VIEW HISTORY: ngt position COMPARISON: 07/10/2018. FINDINGS: LUNGS: Progressive lower lobe infiltrates particularly left lower lobe. PLEURA: Small pleural effusions, on the left indistinguishable from left lower lobe infiltrate. CARDIOVASCULAR: Atherosclerotic calcifications identified primarily aortic arch. No significant interval change compared to the prior examination(s). OSSEOUS STRUCTURES: No significant abnormalities. VISUALIZED UPPER ABDOMEN: Normal. OTHER FINDINGS: Nasogastric tube remains coiled in the stomach. IMPRESSION: Progressive lower lobe infiltrates particularly left lower lobe.
[2018-07-12] MEDS ORDERED: Bupivacaine HCl 0.5% PF (30 ml) Inj ONE (13:38)
[2018-07-12] MEDS ORDERED: Midazolam 2 MG/2 ML VIAL ONE (14:07)
[2018-07-12] MEDS: Potassium CL 10mEq/100ml 100 ML IVPB SCH ×2 (14:07→14:08)
[2018-07-12] MEDS ORDERED: Rocuronium 10 mg/ml (5 ml) ONE ×2 (14:07→15:27)
[2018-07-12] MEDS ORDERED: Propofol 10 mg/ml Inj (20 ML) ONE (14:07)
[2018-07-12] MEDS ORDERED: Etomidate 20 mg/10ml Inj IV ONE (14:08)
[2018-07-12] MEDS ORDERED: Lactated Ringer's 1,000 ML IV ONE ×6 (14:15→20:20)
[2018-07-12] MEDS ORDERED: Phenylephrine 10 mg/ml Inj ONE (14:36)
[2018-07-12] MEDS ORDERED: HYDROmorphone 0.5 mg/0.5 ml ISec IVP PRN (15:12)
[2018-07-12] MEDS ORDERED: Neostigmine 1:1000 (1 mg/ml) Inj ONE (16:12)
--- NOTE | 2018-07-12 17:05 | PCM.SURG1 ---
Surgeon's Initial Post Op Note - Surgeon's Notes Surgeon: Dr. Mendez Social Science Teacher: Teagan PGY2 Type of Anesthesia: General Endo Anesthesia Administered By: Dr. Brady Pre-Operative Diagnosis: SBO Operative Findings: edematous bowel, extensive adhesions Post-Operative Diagnosis: SBO Operation Performed: Exploratory laparotomy, extenive lysis of adhesions, repair of enterotomies x 2, washout Specimen/Specimens Removed: None Estimated Blood Loss: EBL {In ML}: 50 Blood Products Given: N/A Drains Used: No Drains Post-Op Condition: Fair (patient reintubated in PACU for airway protection and tachycardia in 170s) Date of Surgery/Procedure: 07/12/18 Time of Surgery/Procedure: 17:05
--- NOTE | 2018-07-12 17:06 | PCM.OP ---
Operative Report - Operative Report Date of Surgery/Procedure: 07/12/18 Time of Surgery/Procedure: 17:06 Surgeon: Dr. Mendez Automatic Equipment Technician: Teagan LYNN Anesthesia/Sedation: Type of Anesthesia: General Endo Anesthesia Administered By: Dr. Brady Pre-Operative Diagnosis: SBO Post-Operative Diagnosis: SBO Indication for Surgery: SBO Operative Findings: edematous bowel, extensive adhesions Procedure/Operation Description: Operation Performed: Exploratory laparotomy, extenive lysis of adhesions, repair of enterotomies x 2, washout Consent was obtained from the family. Niece, Samaria and patient's son gave permission for the procedure. Extensive discussion about the risks/benefits for the procedure were discussed at great length. All scenarios and treatment options were layed out and offered to the family. They chose to proceed with the procedure and demonstrated understanding/agreement. Patient was taken to the operating room and placed in the supine position. SCDs were applied. General Endtracheal anesthesia was administered. The patient's abdomen was prepped and draped in the usual sterile manner. Horizontal infraumbilical incision was made using #10 blade. The subcutaneous tissue was dissected with electrocautery until reaching the fascial layer. Anterior and posterior Fasica were excised and peritoneum was entered. Upon entering the abdomen, edematous bowel purple bowel and extensive adhesions were noted throughout small bowel. Incidental enterotomy was made distal to ligament of Treitz when initially running the bowel due to edematous and distended nature. Small Bowel contents were suctioned then enterotomy was repaired in two layers (inner layer with running 2-0 PDS and outer layer with 3-0 silk). The entirety of the small bowel was ran and multiple adhesions were lysed including where the obstruction was noted. The obstruction was caused by a concentric adhesion near the ileocecal junction causing the lumen of the bowel to be compromised. The adhesion was lysed but the lumen remained narrowed. At that time, a modified stricturoplasty was performed (longitudinal incision and transverse closure with two layer closure - inner layer with running 2-0 PDS and outer layer with 3-0 silk). The small bowel was inspected in its entirety once more. No more adhesions or obstruction was present. The small bowel at this time appeared pink and patent with peristalsis. There was no evidence of non-viable or necrotic tissue noted. The abdominal cavity was then irrigated with warmed saline. Afterwards, Abdominal wall was closed with 0 looped PDS in running fashion. Skin was approximated with zeke. All nursing counts were correct and confirmed. Estimated blood loss was 50cc. Patient transferred to PACU where she had to be reintubated due to SVT. RIJ TLC and R radial arterial line was placed for hemodynamic monitoring. Patient to be sent to ICU for post-operative care. Estimated Blood Loss: 50 cc Complications: None Discharge & Condition: Fair, patient reintubated in PACU for airway protection and tachycardia in 170s. Transferred to ICU after PACU.
[2018-07-12] MEDS ORDERED: Propofol 10 mg/ml 1,000 MG/100 ML VIAL IV SCH (17:15)
[2018-07-12 17:17] LABS: ABG ALLEN TEST YES; ARTERIAL BLOOD GAS HCO3 22.9 mmol/L (21-28); ARTERIAL BLOOD GAS HEMOGLOBIN 15.7 g/dL (11.7-17.4); ARTERIAL BLOOD GAS O2 CAPACITY 21.2 mL/dL (16-24); ARTERIAL BLOOD GAS O2 CONTENT 20.2 ML/dL (15-23); ARTERIAL BLOOD GAS O2 SAT 95.2 % (95-98); ARTERIAL BLOOD GAS PCO2 47 mm/Hg (35-45); ARTERIAL BLOOD GAS PH 7.32 (7.35-7.45); ARTERIAL BLOOD GAS PO2 67 mm/Hg (80-100); ARTERIAL BLOOD GAS TCO2 25.6 mmol/L (22-28)
--- NOTE | 2018-07-12 17:21 | CP.PCM.CON ---
History of Present Illness - History of Present Illness History of Present Illness: 87yo F. PMHx HTN, Hyperlipidemia, GERD, insomnia, dementia, diverticulitis s/p hemicolectomy s/p colostomy reversal, ventral hernia repair. p/w SBO, taken to OR for SAILAJA, c/b 2 enterotomies. Admitted to ICU for post-op monitoring. Went into SVT in PACU and was reintubated. Review of Systems - Review of Systems Systems not reviewed;Unavailable: Intubated Past Patient History - Past Medical History & Family History Past Medical History?: Yes - Past Social History Alcohol: None Drugs: Denies - CARDIAC Hx Hypercholesterolemia: Yes Hx Hypertension: Yes - MUSCULOSKELETAL/RHEUMATOLOGICAL Hx Falls: No - GASTROINTESTINAL Other/Comment: hx abdominal surgeries - PSYCHIATRIC Hx Substance Use: No - SURGICAL HISTORY Hx Cholecystectomy: Yes Hx Coronary Stent: (pt denies) - ANESTHESIA Hx Anesthesia: Yes Meds Allergies/Adverse Reactions: Allergies Allergy/AdvReac Type Severity Reaction Status Date / Time acetaminophen [From Percocet] Allergy RASH Verified 07/10/18 13:08 codeine Allergy RASH Verified 07/10/18 13:08 oxycodone [From Percocet] Allergy RASH Verified 07/10/18 13:08 - Medications Medications: Current Medications Alprazolam (Xanax) 0.5 mg NG HS PRN PRN Reason: Anxiety Last Admin: 07/10/18 22:39 Dose: 0.5 mg Bacitracin (Bacitracin Oint) 1 applic TOP BID [facility] Last Admin: 07/12/18 09:07 Dose: 1 applic Donepezil HCl (Aricept) 10 mg NG HS [facility] Last Admin: 07/11/18 21:07 Dose: 10 mg Hydromorphone HCl (Dilaudid) 0.5 mg IVP Q5M PRN PRN Reason: Pain, severe (8-10) Stop: 07/12/18 17:13 Piperacillin Sod/Tazobactam (Sod 3.375 gm/ Sodium Chloride) 100 mls @ 100 mls/hr IVPB Q6 [facility]; Protocol Last Admin: 07/12/18 10:43 Dose: 100 mls/hr Lactated Ringer's (Lactated Ringer's) 1,000 mls @ 100 mls/hr IV .Q10H [facility] Lactated Ringer's (Lactated Ringer's) 1,000 mls @ 125 mls/hr IV .Q8H [facility] Propofol (Diprivan) 1,000 mg in 100 mls @ 1.807 mls/hr IV .Q24H [facility]; Protocol Stop: 07/13/18 17:01 Ketorolac Tromethamine (Toradol) 15 mg IVP Q6 PRN PRN Reason: Pain, moderate (4-7) Last Admin: 07/12/18 10:41 Dose: 15 mg Ketorolac Tromethamine (Toradol) 30 mg IVP Q6 PRN PRN Reason: Pain, severe (8-10) Last Admin: 07/11/18 21:17 Dose: 30 mg Metoprolol Succinate (Toprol Xl) 50 mg PO DAILY [facility] Last Admin: 07/12/18 09:08 Dose: 50 mg Mirtazapine (Remeron) 30 mg PO [facility] Last Admin: 07/11/18 21:07 Dose: 30 mg Ondansetron HCl (Zofran Inj) 4 mg IVP Q6 PRN PRN Reason: Nausea/Vomiting Last Admin: 07/12/18 10:40 Dose: 4 mg Ondansetron HCl (Zofran Inj) 4 mg IVP ONCE PRN PRN Reason: Nausea/Vomiting Stop: 07/12/18 17:13 Pantoprazole Sodium (Protonix Inj) 40 mg IVP DAILY [facility] Last Admin: 07/12/18 09:08 Dose: 40 mg Pravastatin Sodium (Pravachol) 20 mg PO [facility] Last Admin: 07/11/18 21:07 Dose: 20 mg Physical Exam - Head Exam Head Exam: ATRAUMATIC, NORMAL INSPECTION, NORMOCEPHALIC - Eye Exam Eye Exam: EOMI, Normal appearance, PERRL Pupil Exam: PERRL - ENT Exam ENT Exam: Mucous Membranes Moist, Normal Exam - Neck Exam Neck exam: Positive for: Normal Inspection - Respiratory Exam Respiratory Exam: Clear to Auscultation Bilateral, NORMAL BREATHING PATTERN - Cardiovascular Exam Cardiovascular Exam: REGULAR RHYTHM - GI/Abdominal Exam GI & Abdominal Exam: Hypoactive Bowel Sounds Additional comments: surgical wound c/d/i - Neurological Exam Neurological exam: Alert Results - Vital Signs Recent Vital Signs: Last Vital Signs Temp 97.5 F L 07/12/18 09:00 Pulse 85 07/12/18 09:08 Resp 19 07/12/18 09:00 BP 121/74 07/12/18 09:08 Pulse Ox 92 L 07/12/18 09:00 - Labs Result Diagrams: 07/12/18 05:50 07/12/18 05:50 Labs: Laboratory Results - last 24 hr 07/11/18 07/11/18 07/12/18 05:35 22:39 05:50 WBC 4.4 L RBC 4.57 Hgb 13.7 Hct 41.5 MCV 90.8 D MCH 30.0 MCHC 33.0 RDW 14.2 Plt Count 198 pCO2 pO2 HCO3 ABG pH ABG Total CO2 ABG O2 Saturation ABG Base Excess Mustapha Test ABG Potassium A-a O2 Difference Glucose Lactate FiO2 Sodium Potassium Chloride Carbon Dioxide Anion Gap BUN Creatinine Est GFR ( Amer) Est GFR (Non-Af Amer) POC Glucose (mg/dL) 84 Random Glucose Calcium Total Bilirubin AST ALT Alkaline Phosphatase Total Protein Albumin Globulin Albumin/Globulin Ratio Procalcitonin 0.16 L Arterial Blood Potassium 07/12/18 07/12/18 07/12/18 05:50 05:59 11:12 WBC RBC Hgb Hct MCV MCH MCHC RDW Plt Count pCO2 pO2 HCO3 ABG pH ABG Total CO2 ABG O2 Saturation ABG Base Excess Mustapha Test ABG Potassium A-a O2 Difference Glucose Lactate FiO2 Sodium 137 Potassium 3.6 Chloride 101 Carbon Dioxide 28 Anion Gap 12 BUN 30 H Creatinine 0.9 Est GFR ( Amer) > 60 Est GFR (Non-Af Amer) 60 POC Glucose (mg/dL) 109 127 H Random Glucose 100 Calcium 8.9 Total Bilirubin 1.0 AST 17 ALT 21 Alkaline Phosphatase 60 Total Protein 5.8 L Albumin 3.2 L Globulin 2.6 Albumin/Globulin Ratio 1.2 Procalcitonin Arterial Blood Potassium 07/12/18 12:28 WBC RBC Hgb Hct MCV MCH MCHC RDW Plt Count pCO2 43 pO2 55 L HCO3 28.1 H ABG pH 7.44 ABG Total CO2 30.5 H ABG O2 Saturation 92.4 L ABG Base Excess 4.4 H Mustapha Test Yes ABG Potassium 3.4 L A-a O2 Difference 41.0 Glucose 106 H Lactate 0.7 FiO2 21.0 Sodium 134.0 Potassium Chloride 101.0 Carbon Dioxide Anion Gap BUN Creatinine Est GFR ( Amer) Est GFR (Non-Af Amer) POC Glucose (mg/dL) Random Glucose Calcium Total Bilirubin AST ALT Alkaline Phosphatase Total Protein Albumin Globulin Albumin/Globulin Ratio Procalcitonin Arterial Blood Potassium 3.4 L Assessment & Plan (1) Small bowel obstruction Assessment and Plan: 87yo F. PMHx HTN, Hyperlipidemia, GERD, insomnia, dementia, diverticulitis s/p hemicolectomy s/p colostomy reversal, ventral hernia repair. p/w SBO, taken to OR for SAILAJA, c/b 2 enterotomies. Admitted to ICU for post-op monitoring. Went into SVT in PACU and was reintubated. Neuro: sedated with propofol gtt, fentanyl gtt for pain. Ketorolac prn once extubated. Pulm: post-op respiratory failure on PRVC CV: hemodynamically stable. post-op SVT, wll continue lopressor IV q6h. Hem: no acute issues Renal: will monitor urine output, LR@125 Endo: no acute issues GI: NPO. ID: sepsis from recent SBO, s/p SAILAJA with enterotomies and fecal contamination of abdomen. continue Zosyn. DVT proph - lovenox start 24h/post-op GI proph - protonix huang for strict I/O's during acute illness Code status - full code Critical Care time spent 35 minutes Multi-disciplinary rounds were performed with house staff, nursing, speech therapy, respiratory therapy, pharmacy and nutrition with integrated input from the primary team/attending and other consulting services. The documented time is cumulative and includes review of patient data/exams/labs/chart review and examination of the patient on rounds and throughout the day; time is exclusive of any procedures or teaching time. Status: Acute
[2018-07-12] MEDS ORDERED: Fentanyl Citrate 2,500 MCG in Dextrose 5% In Water 200 ML IV SCH (17:30)
[2018-07-12] MEDS ORDERED: Metoprolol 1 mg/ml Inj ONE (17:31)
[2018-07-12 17:40] LABS: ALBUMIN 2.3 g/dL (3.5-5.0); ALT/SGPT 27 U/L (9-52); AST/SGOT 22 U/L (14-36); BLOOD UREA NITROGEN 26 mg/dl (7-17); CALCIUM 7.5 mg/dL (8.4-10.2); GFR NON-AFRICAN AMERICAN > 60
[2018-07-12 17:43] LABS: BASO % 0.1 % (0.0-2.0); EOS % 4.1 % (0.0-4.0); LYMPH # 0.4 K/uL (1.0-4.3); LYMPH % 39.6 % (20.0-40.0); MEAN CORPUSCULAR HEMOGLOBIN 29.8 pg (27.0-31.0); MEAN CORPUSCULAR HGB CONC 33.1 g/dL (33.0-37.0); MEAN PLATELET VOLUME 8.4 fl (7.2-11.7); MONO % 1.1 % (0.0-10.0); NEUT # 0.6 K/uL (1.8-7.0); NEUT % 55.1 % (50.0-75.0); NRBC % 0.9 % (0.0-0.0); RBC 5.03 Mil/uL (3.80-5.20); RED CELL DISTRIBUTION WIDTH 14.3 % (11.5-14.5)
[2018-07-12 18:03] LABS: WHITE BLOOD COUNT 1.1 K/uL (4.8-10.8)
[2018-07-12] MEDS: Potassium Chloride 20 mEq 100 ML IV SCH (22:00)
[2018-07-12] MEDS: Lactated Ringer's 1,000 ML IV SCH (22:04)
[2018-07-12] MEDS: metroNIDAZOLE 500mg/100ml NS 100 ML IVPB SCH (22:22)
[2018-07-12] MEDS: Meropenem 1 GM in Sodium Chloride 0.9% 100 ML IVPB SCH (23:20)
[2018-07-12] MEDS: Acetaminophen IV 1,000 MG in IV SUPPLIES 0 ML IVPB SCH (23:20)
[2018-07-12 23:22] LABS: EOS % 0.8 % (0.0-4.0); HEMOGLOBIN 13.2 g/dL (12.0-16.0); LYMPH # 0.2 K/uL (1.0-4.3); LYMPH % 6.5 % (20.0-40.0); MEAN CORPUSCULAR HEMOGLOBIN 29.3 pg (27.0-31.0); MEAN CORPUSCULAR HGB CONC 32.5 g/dL (33.0-37.0); MEAN PLATELET VOLUME 8.3 fl (7.2-11.7); MONO # 0.1 K/uL (0.0-0.8); MONO % 1.8 % (0.0-10.0); NEUT # 2.6 K/uL (1.8-7.0); NEUT % 90.9 % (50.0-75.0); PLATELET COUNT 162 K/uL (130-400); RBC 4.52 Mil/uL (3.80-5.20); RED CELL DISTRIBUTION WIDTH 13.8 % (11.5-14.5); WHITE BLOOD COUNT 2.9 K/uL (4.8-10.8)
[2018-07-12 23:27] LABS: INR 1.5; PROTHROMBIN TIME 16.5 Seconds (9.8-13.1)
[2018-07-12 23:29] LABS: ABG ALLEN TEST YES; ARTERIAL BLOOD GAS HCO3 24.1 mmol/L (21-28); ARTERIAL BLOOD GAS O2 SAT 99.9 % (95-98); ARTERIAL BLOOD GAS PCO2 34 mm/Hg (35-45); ARTERIAL BLOOD GAS PH 7.43 (7.35-7.45); ARTERIAL BLOOD GAS PO2 104 mm/Hg (80-100); ARTERIAL BLOOD GAS TCO2 23.6 mmol/L (22-28)
[2018-07-12 23:29] LABS: PARTIAL THROMBOPLASTIN TIME 28.3 Seconds (25.6-37.1)
[2018-07-12] MEDS: Metoprolol 1 mg/ml Inj IVP SCH (23:30)
[2018-07-12 23:43] LABS: ALB/GLOB RATIO 0.9 (1.0-2.1); ALBUMIN 1.9 g/dL (3.5-5.0); ALT/SGPT 32 U/L (9-52); AST/SGOT 28 U/L (14-36); B-TYPE NATRIURETIC PEPTIDE 627 pg/ml (0-900); BLOOD UREA NITROGEN 25 mg/dl (7-17); CALCIUM 7.3 mg/dL (8.4-10.2); GFR NON-AFRICAN AMERICAN 53
[2018-07-13] MEDS: Potassium Chloride 20 mEq 100 ML IV SCH ×5 (00:01→06:21)
[2018-07-13] MEDS ORDERED: Magnesium Sulfate 4 gm/100 ml 4 GM/100 ML BAG IVPB ONE (00:12)
--- NOTE | 2018-07-13 01:34 | CP.PCM.PCO ---
Addendum Addendum: 07/13/18 01:34 Patient seen and examined in ICU s/p ex lap and repair of enterotomies x2 ,POD1. Patient had episodes of SVT during procedure and reintubated in PACU for airway protection. Patient is on ventilation and mildly sedated, open eyes intermittently, NAD. Cardio: RRR, normal S1, S2, Lungs: CTA B/L. Patient is cur rently on levephed 20 mcg/min and vasopressin 0.03 units/min to maintain MAP >60. Patient was started on Meropenem 1gm IV q8 and Flagyl 500mg q8 for sepsis. Continue with plans as ordered.
[2018-07-13] MEDS: metroNIDAZOLE 500mg/100ml NS 100 ML IVPB SCH ×3 (02:00→16:13)
[2018-07-13] MEDS: Acetaminophen IV 1,000 MG in IV SUPPLIES 0 ML IVPB SCH ×3 (02:32→23:05)
[2018-07-13 03:02] LABS: BANDS 6 % (0-2); LYMPHOCYTE 7 % (20-50); MONOCYTE 8 % (0-10); NEUTROPHIL 76 % (42-75); REACTIVE LYMPHOCYTES 3 % (0-0); TOTAL CELLS COUNTED 100
[2018-07-13 03:03] LABS: ANISOCYTOSIS SLIGHT; PLATELET ESTIMATE NORMAL (NORMAL)
[2018-07-13 03:04] LABS: HYPOCHROMIC SLIGHT
[2018-07-13] MEDS: Meropenem 1 GM in Sodium Chloride 0.9% 100 ML IVPB SCH ×3 (03:58→16:14)
[2018-07-13 04:54] LABS: ABG ALLEN TEST YES; ARTERIAL BLOOD GAS HCO3 20.8 mmol/L (21-28); ARTERIAL BLOOD GAS O2 SAT 98.4 % (95-98); ARTERIAL BLOOD GAS PCO2 32 mm/Hg (35-45); ARTERIAL BLOOD GAS PH 7.38 (7.35-7.45); ARTERIAL BLOOD GAS PO2 82 mm/Hg (80-100); ARTERIAL BLOOD GAS TCO2 19.9 mmol/L (22-28)
[2018-07-13] MEDS: Lactated Ringer's 1,000 ML IV SCH ×4 (05:01→22:10)
[2018-07-13] MEDS: Metoprolol 1 mg/ml Inj IVP SCH ×3 (05:10→13:16)
[2018-07-13 05:37] LABS: MEAN CELL VOLUME 91.2 fl (81.0-99.0); MEAN CORPUSCULAR HEMOGLOBIN 29.7 pg (27.0-31.0); MEAN CORPUSCULAR HGB CONC 32.5 g/dL (33.0-37.0); RBC 4.4 Mil/uL (3.80-5.20); RED CELL DISTRIBUTION WIDTH 14.1 % (11.5-14.5); WHITE BLOOD COUNT 8.8 K/uL (4.8-10.8)
[2018-07-13 05:55] LABS: ALB/GLOB RATIO 0.9 (1.0-2.1); ALBUMIN 1.9 g/dL (3.5-5.0); CALCIUM 7.5 mg/dL (8.4-10.2); TROPONIN I 0.297 ng/mL (0.00-0.120)
[2018-07-13] MEDS ORDERED: Lactated Ringer's 1,000 ML IV SCH ×4 (06:45→08:00)
[2018-07-13] MEDS ORDERED: Albumin Human 5% (12.5 gm/250 ml) IV ONE (07:20)
--- NOTE | 2018-07-13 07:32 | CP.PCM.PN ---
<Tremayne Candelaria - Last Filed: 07/13/18 11:43> Subjective - Date & Time of Evaluation Date of Evaluation: 07/13/18 Time of Evaluation: 06:30 - Subjective Subjective: General Surgery Note for Dr. Mendez Patient seen and examined at bedside. She is s/p exploratory laparotomy, lysis of adhesion, and repair of enterotomy x 2 for SBO POD#1. Overnight, patient remained intubated and on levo/vaso. He vasopressor requirements increased but then eventually wean slightly this morning (levo 17.5 mcg). Patient has been afebrile and non-tachycardic. Urine output has been improving (~25-30cc per hr). NGT with 250cc/12hrs. GCS 11T. She is tolerating PSV 50%/10/5. Patient is answering questioning with head nods and following commands. CXR this morning revealed left sided effusion and mild to moderate vascular fluid overload. Pat ient admits to pain but denies fever/chills, cp, SOB. ROS limited due to intubation. Objective - Vital Signs/Intake and Output Vital Signs (last 24 hours): Temp Pulse Resp BP Pulse Ox 100.5 F H 75 22 95/51 L 94 L 07/13/18 00:00 07/13/18 07:01 07/13/18 04:00 07/13/18 07:01 07/13/18 04:00 Intake and Output: 07/13/18 07/13/18 06:59 18:59 Intake Total 1108 Output Total 125 Balance 983 - Medications Medications: Current Medications Bacitracin (Bacitracin Oint) 1 applic TOP BID [facility] Last Admin: 07/12/18 09:07 Dose: 1 applic Donepezil HCl (Aricept) 10 mg NG HS [facility] Last Admin: 07/12/18 23:07 Dose: 10 mg Propofol (Diprivan) 1,000 mg in 100 mls @ 1.807 mls/hr IV .Q24H [facility]; Protocol Stop: 07/13/18 17:01 Fentanyl Citrate 2,500 mcg/ (Dextrose) 250 mls @ 0 mls/hr IV .Q0M [facility]; Protocol Meropenem 1 gm/ Sodium (Chloride) 100 mls @ 100 mls/hr IVPB Q8 [facility]; Protocol Last Admin: 07/13/18 03:58 Dose: 100 mls/hr Metronidazole (Flagyl 500mg/100ml Ns) 100 mls @ 100 mls/hr IVPB Q8 [facility]; Protocol Last Admin: 07/13/18 02:00 Dose: 100 mls/hr Acetaminophen 1,000 mg/ IV (SUPPLIES) 100 mls @ 400 mls/hr IVPB Q8H [facility]; Protoc ol Stop: 07/13/18 19:01 Last Admin: 07/13/18 02:32 Dose: 400 mls/hr Vasopressin 100 units/ Sodium (Chloride) 105 mls @ 1.89 mls/hr IV .Q24H [facility]; Protocol Norepinephrine Bitartrate 16 (mg/ Dextrose) 266 mls @ 9.98 mls/hr IV .Q24H [facility]; Protocol Stop: 07/13/18 21:48 Last Titration: 07/13/18 02:40 Dose: 30 mcg/min, 29.93 mls/hr Lactated Ringer's (Lactated Ringer's) 1,000 mls @ 999 mls/hr IV .Q1H1M [facility] Stop: 07/13/18 07:45 Last Admin: 07/13/18 07:02 Dose: 999 mls/hr Lactated Ringer's (Lactated Ringer's) 1,000 mls @ 150 mls/hr IV .Q6H40M [facility] Calcium Gluconate 1,000 mg/ (Sodium Chloride) 110 mls @ 100 mls/hr IVPB ONCE ONE Stop: 07/13/18 07:41 Ketorolac Tromethamine (Toradol) 15 mg IVP Q6 PRN PRN Reason: Pain, moderate (4-7) Last Admin: 07/13/18 05:35 Dose: 15 mg Ketorolac Tromethamine (Toradol) 30 mg IVP Q6 PRN PRN Reason: Pain, severe (8-10) Last Admin: 07/11/18 21:17 Dose: 30 mg Metoprolol Tartrate (Lopressor) 2.5 mg IVP Q6H [facility] Last Admin: 07/13/18 07:01 Dose: Not Given Mirtazapine (Remeron) 30 mg PO HS [facility] Last Admin: 07/11/18 21:07 Dose: 30 mg Ondansetron HCl (Zofran Inj) 4 mg IVP Q6 PRN PRN Reason: Nausea/Vomiting Last Admin: 07/12/18 10:40 Dose: 4 mg Pantoprazole Sodium (Protonix Inj) 40 mg IVP DAILY [facility] Last Admin: 07/12/18 09:08 Dose: 40 mg Pravastatin Sodium (Pravachol) 20 mg PO HS [facility] Last Admin: 07/11/18 21:07 Dose: 20 mg - Labs Labs: 07/13/18 04:30 07/13/18 04:30 PT 16.5 Seconds (9.8-13.1) H 07/12/18 23:17 INR 1.5 07/12/18 23:17 APTT 28.3 Seconds (25.6-37.1) 07/12/18 23:17 - Constitutional Appears: No Acute Distress - Head Exam Head Exam: ATRAUMATIC, NORMOCEPHALIC - Eye Exam Eye Exam: EOMI, Normal appearance Pupil Exam: PERRL - ENT Exam ENT Exam: Mucous Membranes Moist Additional comments: NGT in right nare ET tube in place - Neck Exam Additional comments: RIJ TLC - Respiratory Exam Additional comments: intubated on PSV 50%/10/5 - Cardiovascular Exam Cardiovascular Exam: REGULAR RHYTHM - GI/Abdominal Exam GI & Abdominal Exam: Soft, Tenderness (surgical site), Normal Bowel Sounds. absent: Distended, Firm, Guarding, Rigid, Rebound Additional comments: dressing clean dry and intact - Extremities Exam Extremities Exam: Normal Capillary Refill, Pedal Edema (1+) - Back Exam Back Exam: absent: CVA tenderness (L), CVA tenderness (R) - Neurological Exam Neurological Exam: Alert, Awake Additional comments: [id number] - Psychiatric Exam Psychiatric exam: Flat Affect - Skin Skin Exam: Dry, Normal Color, Warm Assessment and Plan - Assessment and Plan (Free Text) Assessment: 87 F who presents with septic shock, acute respiratory failure, elevated lactate, s/p exploratory laparotomy, lysis of adhesion, and repair of enterotomy x 2 for SBO POD#1 Plan: Neuro -GCS11T -HOB > 30 -Pain control -Aricept Resp -Maintain SaO2 > 92% -PSV 50%/10/5 -Wean from vent as tolerated -Daily CXR CV -Maintain MAP > 65 -Wean vasopressors as tolerated -f/u ECHO GI -NPO -NGT to low intermittent suction -Protonix -Zofran PRN -Strict I's & O's -Maintain Urine output 0.5-1 cc/kg/hr -IVF -Replete electrolytes PRN Endo -Solu-cortef Q8H -Maintain euglycemia 140-180 Heme -Monitor H/H and platelets -Chemical and mechanical DVT ppx ID -ID consult, f/u recommendations -Merrem, Flagyl -Trend WBC <Wilder Bullock N - Last Filed: 07/16/18 13:35> Subjective - Subjective Subjective: All medical record entries made by the resident were at my direction. I have reviewed the chart and agree that the record accurately reflects my personal performance of the history, physical exam, medical decision making. I have also personally directed, reviewed, and agree with the resident note Objective - Vital Signs/Intake and Output Vital Signs (last 24 hours): Temp Pulse Resp BP Pulse Ox 97.3 F L 92 H 19 134/66 94 L 07/16/18 12:20 07/16/18 12:20 07/16/18 12:20 07/16/18 12:20 07/16/18 12:20 Intake and Output: 07/16/18 07/16/18 06:59 18:59 Intake Total 925 250 Output Total 2950 400 Balance -5 -150 - Medications Medications: Current Medications Albuterol/Ipratropium (Duoneb 3 Mg/0.5 Mg (3 Ml) Ud) 3 ml INH RQ6 PRN PRN Reason: Shortness of Breath Last Admin: 07/15/18 21:58 Dose: 3 ml Donepezil HCl (Aricept) 10 mg NG HS [facility] Last Admin: 07/16/18 01:34 Dose: Not Given Enoxaparin Sodium (Lovenox) 30 mg SC DAILY [facility]; Protocol Last Admin: 07/16/18 08:29 Dose: 30 mg Metronidazole (Flagyl 500mg/100ml Ns) 100 mls @ 100 mls/hr IVPB Q8 [facility]; Protocol Last Admin: 07/16/18 08:26 Dose: 100 mls/hr Fluconazole (Diflucan Iv 100 Mg/50 Ml Ns) 50 mls @ 50 mls/hr IVPB DAILY [facility]; Protocol Last Admin: 07/16/18 10:43 Dose: 50 mls/hr Vancomycin HCl 750 mg/ Sodium (Chloride) 250 mls @ 166.667 mls/hr IVPB Q12 [facility]; Protocol Last Admin: 07/16/18 10:44 Dose: Not Given Ketorolac Tromethamine (Toradol) 30 mg IVP Q6 PRN PRN Reason: Pain, severe (8-10) Last Admin: 07/14/18 19:06 Dose: 30 mg Mirtazapine (Remeron) 30 mg PO HS [facility] Last Admin: 07/16/18 01:35 Dose: Not Given Ondansetron HCl (Zofran Inj) 4 mg IVP Q6 PRN PRN Reason: Nausea/Vomiting Last Admin: 07/12/18 10:40 Dose: 4 mg Pantoprazole Sodium (Protonix Inj) 40 mg IVP DAILY [facility] Last Admin: 07/16/18 08:29 Dose: 40 mg Pravastatin Sodium (Pravachol) 20 mg PO HS [facility] Last Admin: 07/16/18 01:35 Dose: Not Given - Labs Labs: 07/16/18 04:20 07/16/18 04:20 PT 16.5 Seconds (9.8-13.1) H 07/12/18 23:17 INR 1.5 07/12/18 23:17 APTT 28.3 Seconds (25.6-37.1) 07/12/18 23:17
[2018-07-13 08:12] LABS: ABG ALLEN TEST YES; ARTERIAL BLOOD GAS HCO3 21.1 mmol/L (21-28); ARTERIAL BLOOD GAS PCO2 33 mm/Hg (35-45); ARTERIAL BLOOD GAS PH 7.38 (7.35-7.45); ARTERIAL BLOOD GAS PO2 86 mm/Hg (80-100); ARTERIAL BLOOD GAS TCO2 20.5 mmol/L (22-28)
--- NOTE | 2018-07-13 08:25 | RAD ---
Date of service: 07/13/2018 HISTORY: pt is intubated COMPARISON: 07/12/2018 FINDINGS: LUNGS: Patient is intubated. Endotracheal tube is unchanged in the distal trachea and approximately 15 millimeters from the mel[place]. NG tube is unchanged and in the stomach. There is persistent mild subsegmental atelectasis at the right lung base. PLEURA: No significant pleural effusion identified, no pneumothorax apparent. There is also some persistent subsegmental atelectasis and small amount of pleural fluid at the left lung base. Mild chronic eventration of the left hemidiaphragm is noted. CARDIOVASCULAR: Stable aortic atherosclerotic calcification present. Stable cardiac size. Stable mild vascular congestion. OSSEOUS STRUCTURES: No significant abnormalities. VISUALIZED UPPER ABDOMEN: Normal. OTHER FINDINGS: None. IMPRESSION: There may be some mild subtle increase in subsegmental atelectasis at the left lung base. Endotracheal tube 15 millimeters above the melida.
--- NOTE | 2018-07-13 08:57 | RAD ---
Date of service: 07/13/2018 PROCEDURE: CHEST RADIOGRAPH, 1 VIEW HISTORY: intubated COMPARISON: 07/13/2018 at 4:28 FINDINGS: LUNGS: There appears to be some mild increase in opacification in both lung chicas probably related to mild increasing congestion or atelectasis. New small additional patchy infiltrates are not excluded. Endotracheal tube and NG tube are unchanged in position. Right central line is also stable. PLEURA: Small left pleural effusion is not significantly changed. CARDIOVASCULAR: There is aortic atherosclerotic calcification present. There may be some mild increase in vascular congestion. OSSEOUS STRUCTURES: No significant abnormalities. VISUALIZED UPPER ABDOMEN: Normal. OTHER FINDINGS: None. IMPRESSION: Mild increase in opacification suggesting either related to increased congestion or increased patchy infiltrates.
--- NOTE | 2018-07-13 09:05 | RAD ---
Date of service: 07/12/2018 HISTORY: s/p triple lumen cath insertion COMPARISON: Yesterday FINDINGS: LUNGS: Endotracheal tube and NG tube are unchanged. There is a new right-sided internal jugular vein central line catheter with its tip overlying the right atrial region. This should be retracted a few centimeters. Mild increase in subsegmental atelectasis is suspected. PLEURA: There is an edge overlying the right upper lobe region. Small pneumothorax is not excluded although the finding may be related to a skin fold. This is not as well seen on the subsequent examinations. Left pleural effusion is unchanged. CARDIOVASCULAR: Aortic atherosclerotic calcification present. Heart is unchanged. Vasculature is probably unchanged given for differences in technique. OSSEOUS STRUCTURES: No significant abnormalities. VISUALIZED UPPER ABDOMEN: Normal. OTHER FINDINGS: None. IMPRESSION: Status post right triple-lumen catheter insertion with its tip noted overlying the right atrium. Lucency and curvilinear edge overlying the right upper lobe. This may reflect skinfold.
--- NOTE | 2018-07-13 09:07 | RAD ---
Date of service: 07/12/2018 HISTORY: intubation COMPARISON: 07/12/2018 at 9:14 FINDINGS: LUNGS: Endotracheal tube and NG tube are unchanged. There is mild increase in subsegmental atelectasis at the right lung base. There is also some mild increase in subsegmental atelectasis at the left lung base with small left effusion also suspected. No pneumothorax is seen. PLEURA: See above. CARDIOVASCULAR: Aortic atherosclerotic calcification present. Normal cardiac size. Pulmonary vasculature is unchanged. OSSEOUS STRUCTURES: No significant abnormalities. VISUALIZED UPPER ABDOMEN: Normal. OTHER FINDINGS: None. IMPRESSION: Mild increase in subsegmental atelectasis. Status post intubation. Left lower lung field subsegmental atelectasis and left pleural effusion. Increased distention of the gastric air bubble underlying the left hemidiaphragm which is mildly even treated.
[2018-07-13] MEDS: Bacitracin OINT 15GM TOP SCH (09:23)
--- NOTE | 2018-07-13 11:00 | CP.PCM.PN ---
<Lauri Hughes - Last Filed: 07/13/18 12:08> Subjective - Date & Time of Evaluation Date of Evaluation: 07/13/18 Time of Evaluation: 07:38 - Subjective Subjective: Patient seen and examined in ICU s/p ex lap and repair of enterotomies x2, POD1. Patient admits to pain but denies fever/chills, CP, headache. Patient had episodes of SVT during procedure and was reintubated in PACU for airway protection. Patient is on ventilation but is awake and alert, follows commands, NAD. Patient is currently on levephed 17.5 mcg/min and vasopressin 0.03 units/min to maintain MAP >60. Patient was started on Meropenem 1gm IV q8 and Flagyl 500mg q8 for sepsis. Central line in R neck, improving urine output Objective - Vital Signs/Intake and Output Vital Signs (last 24 hours): Temp Pulse Resp BP Pulse Ox 100.2 F H 75 22 108/55 L 95 07/13/18 09:00 07/13/18 10:00 07/13/18 10:00 07/13/18 10:00 07/13/18 10:00 Intake and Output: 07/13/18 07/13/18 06:59 18:59 Intake Total 3483 3466 Output Total 125 520 Balance 3358 2946 - Medications Medications: Current Medications Donepezil HCl (Aricept) 10 mg NG HS [facility] Last Admin: 07/12/18 23:07 Dose: 10 mg Hydrocortisone Sodium Succinate (Solu-Cortef) 50 mg IVP Q8H [facility] Meropenem 1 gm/ Sodium (Chloride) 100 mls @ 100 mls/hr IVPB Q8 [facility]; Protocol Last Admin: 07/13/18 08:50 Dose: 100 mls/hr Metronidazole (Flagyl 500mg/100ml Ns) 100 mls @ 100 mls/hr IVPB Q8 [facility]; Protocol Last Admin: 07/13/18 08:49 Dose: 100 mls/hr Acetaminophen 1,000 mg/ IV (SUPPLIES) 100 mls @ 400 mls/hr IVPB Q8H [facility]; Protocol Stop: 07/13/18 19:01 Last Admin: 07/13/18 02:32 Dose: 400 mls/hr Vasopressin 100 units/ Sodium (Chloride) 105 mls @ 1.89 mls/hr IV .Q24H [facility]; Protocol Norepinephrine Bitartrate 16 (mg/ Dextrose) 266 mls @ 9.98 mls/hr IV .Q24H [facility]; Protocol Stop: 07/13/18 21:48 Last Titration: 07/13/18 10:49 Dose: 20 mcg/min, 19.95 mls/hr Lactated Ringer's (Lactated Ringer's) 1,000 mls @ 75 mls/hr IV .[id number] [facility] Ketorolac Tromethamine (Toradol) 15 mg IVP Q6 PRN PRN Reason: Pain, moderate (4-7) Last Admin: 07/13/18 05:35 Dose: 15 mg Ketorolac Tromethamine (Toradol) 30 mg IVP Q6 PRN PRN Reason: Pain, severe (8-10) Last Admin: 07/11/18 21:17 Dose: 30 mg Metoprolol Tartrate (Lopressor) 2.5 mg IVP Q6H [facility] Last Admin: 07/13/18 07:01 Dose: Not Given Mirtazapine (Remeron) 30 mg PO [facility] Last Admin: 07/11/18 21:07 Dose: 30 mg Ondansetron HCl (Zofran Inj) 4 mg IVP Q6 PRN PRN Reason: Nausea/Vomiting Last Admin: 07/12/18 10:40 Dose: 4 mg Pantoprazole Sodium (Protonix Inj) 40 mg IVP DAILY [facility] Last Admin: 07/13/18 09:19 Dose: 40 mg Pravastatin Sodium (Pravachol) 20 mg PO [facility] Last Admin: 07/11/18 21:07 Dose: 20 mg - Labs Labs: 07/13/18 04:30 07/13/18 04:30 PT 16.5 Seconds (9.8-13.1) H 07/12/18 23:17 INR 1.5 07/12/18 23:17 APTT 28.3 Seconds (25.6-37.1) 07/12/18 23:17 - Constitutional Appears: No Acute Distress, Other (Intubated on mechanical ventilation) - Head Exam Head Exam: NORMAL INSPECTION - Eye Exam Eye Exam: EOMI, PERRL - Respiratory Exam Respiratory Exam: Clear to Ausculation Bilateral, NORMAL BREATHING PATTERN - Cardiovascular Exam Cardiovascular Exam: REGULAR RHYTHM, +S1, +S2. absent: Tachycardia - GI/Abdominal Exam GI & Abdominal Exam: Soft, Tenderness (diffuse, wound dressing in place clean, dry and intact. No drainages noted), Hypoactive Bowel Sounds. absent: Distended - Extremities Exam Extremities Exam: absent: Calf Tenderness, Pedal Edema - Neurological Exam Neurological Exam: Alert, Awake - Psychiatric Exam Psychiatric exam: Normal Mood - Skin Skin Exam: Dry, Warm Assessment and Plan - Assessment and Plan (Free Text) Assessment: 87 year old female with PMHx hypertension, hyperlipidemia, GERD, insomnia and cognitive impairement presents to [facility] ED today with complaints of diffuse worsening abdominal pain x 2 days associated with abdominal bloating, poor appetite and nausea. in the ED, CT A/P shows small bowel obstruction. Patient is admitted for management of SBO CT A/P: IMPRESSION:Extensive small bowel dilatation without distal obstructing mass-a distal small bowel obstruction is suspect. Is fluid around the hepatic margin is noted. No free air seen. Colon is collapsed. Colonic diverticulosis-right colon greater than left. It was also noted that the patient has a large hiatal hand hernia and this was conveyed as well in terms of any NG tube placement. Plan: Small bowel obstruction - s/p ex laparotomy POD 1 - leukocytosis resolved - General surgery, Dr. Mendez on board - NPO - NGT to suction wall with 300ml of fluid - Pain management with toradol - Anti-emetics - ivf: lr AT 100 Leukopenia, improving - r/o sepsis - low grade fever this am - WBC 1.1 yesterday, 8.8 today - ID consulted: recommended meropenem 1g IV q8 and Flagyl with ambrosio cultures stat. - Hemo/onc: Dr Ray consulted. - f/u cbc Hiatal hernia - c/w protonix 40 mg IVP Hypertension - resume metoprolol succinated 50 mg ER Hyperlipidemia - resume pravastatin 20 mg po hs GERD - start protonix 40 mg IVP Cognitive impairment - resume aricept Insominia/anxiety - resume remeron and aricept DVT prophylaxis - SCDs for now Plan discussed with Dr Desean Ramírez PGY 2 <Maria Victoria Anton - Last Filed: 07/13/18 15:03> Objective - Vital Signs/Intake and Output Vital Signs (last 24 hours): Temp Pulse Resp BP Pulse Ox 100.2 F H 85 32 H 93/50 L 95 07/13/18 13:57 07/13/18 13:57 07/13/18 13:57 07/13/18 13:57 07/13/18 13:57 Intake and Output: 07/13/18 07/13/18 06:59 18:59 Intake Total 3483 4041 Output Total 125 592 Balance 3358 3449 - Medications Medications: Current Medications Donepezil HCl (Aricept) 10 mg NG HS [facility] Last Admin: 07/12/18 23:07 Dose: 10 mg Enoxaparin Sodium (Lovenox) 30 mg SC DAILY [facility]; Protocol Hydrocortisone Sodium Succinate (Solu-Cortef) 50 mg IVP Q8H [facility] Meropenem 1 gm/ Sodium (Chloride) 100 mls @ 100 mls/hr IVPB Q8 [facility]; Protocol Last Admin: 07/13/18 08:50 Dose: 100 mls/hr Metronidazole (Flagyl 500mg/100ml Ns) 100 mls @ 100 mls/hr IVPB Q8 [facility]; Protocol Last Admin: 07/13/18 08:49 Dose: 100 mls/hr Acetaminophen 1,000 mg/ IV (SUPPLIES) 100 mls @ 400 mls/hr IVPB Q8H [facility]; Protocol Stop: 07/13/18 19:01 Last Admin: 07/13/18 13:04 Dose: 400 mls/hr Vasopressin 100 units/ Sodium (Chloride) 105 mls @ 1.89 mls/hr IV .Q24H [facility]; Protocol Last Admin: 07/13/18 11:51 Dose: 0.02 units/min, 1.26 mls/hr Norepinephrine Bitartrate 16 (mg/ Dextrose) 266 mls @ 9.98 mls/hr IV .Q24H [facility]; Protocol Stop: 07/13/18 21:48 Last Titration: 07/13/18 13:23 Dose: 15 mcg/min, 14.96 mls/hr Lactated Ringer's (Lactated Ringer's) 1,000 mls @ 75 mls/hr IV .[id number] [facility] Last Admin: 07/13/18 11:07 Dose: 75 mls/hr Fluconazole (Diflucan Iv 100 Mg/50 Ml Ns) 50 mls @ 50 mls/hr IVPB DAILY [facility]; Protocol Vancomycin HCl 750 mg/ Sodium (Chloride) 250 mls @ 166.667 mls/hr IVPB Q12 [facility]; Protocol Last Admin: 07/13/18 14:00 Dose: 166.667 mls/hr Ketorolac Tromethamine (Toradol) 15 mg IVP Q6 PRN PRN Reason: Pain, moderate (4-7) Last Admin: 07/13/18 14:23 Dose: 15 mg Ketorolac Tromethamine (Toradol) 30 mg IVP Q6 PRN PRN Reason: Pain, severe (8-10) Last Admin: 07/11/18 21:17 Dose: 30 mg Metoprolol Tartrate (Lopressor) 2.5 mg IVP Q6H [facility] Last Admin: 07/13/18 13:16 Dose: Not Given Mirtazapine (Remeron) 30 mg PO HS [facility] Last Admin: 07/11/18 21:07 Dose: 30 mg Ondansetron HCl (Zofran Inj) 4 mg IVP Q6 PRN PRN Reason: Nausea/Vomiting Last Admin: 07/12/18 10:40 Dose: 4 mg Pantoprazole Sodium (Protonix Inj) 40 mg IVP DAILY [facility] Last Admin: 07/13/18 09:19 Dose: 40 mg Pravastatin Sodium (Pravachol) 20 mg PO HS [facility] Last Admin: 07/11/18 21:07 Dose: 20 mg - Labs Labs: 07/13/18 04:30 07/13/18 04:30 PT 16.5 Seconds (9.8-13.1) H 07/12/18 23:17 INR 1.5 07/12/18 23:17 APTT 28.3 Seconds (25.6-37.1) 07/12/18 23:17 Attending/Attestation - Attestation I have personally seen and examined this patient.: Yes I have fully participated in the care of the patient.: Yes I have reviewed all pertinent clinical information, including history, physical exam and plan: Yes Notes (Text): Hypotension Respiratory Insufficiency SVT Episode SBO s/p Explor Lap, Adhesiolysis, repair of Enterotomies Pt is intubated on Vent - CPAP mode 02/01/14/50% On 2 pressors - Levophed and Vasopressin awake, alert ID consulted Pt is on IV Meropenem, Vanco, Flagyl and Diflucan NGT in place - approx 300 ml of bilious drainage noted Surgery following pt we will cont to monitor pt in ICU
--- NOTE | 2018-07-13 11:02 | CP.PCM.CON ---
History of Present Illness - History of Present Illness History of Present Illness: Infectious Disease Consultation- Asked to see this patient HPI- History obtained from medical chart and hospitalist . Patient is a 87 year old female with PMH of GERD, HLD, HTN, diverticulitis s/p hemicolectomy s/p solostomy reverasl , ventral hernia repair years ago who was admitted with c/o severe abdominal pain and nause and was found to have SBO taken to OR for ex -lap and s/p 2 enterotomies and was admitted to ICU for po st-op monitoring and after developed svt and was reintubated and I was called by Hospitalist team lasy =t night for help with antibiotics. advised to start pt. on IV meropenem and flagyl for broad gram neg and anaerobe coverage. Currently pt. is in ICU , remains intubated and on 2 pressors but she is awake and alert and responsive. as per nurse she has good urine output and is being weaned off of one of her pressors. She can nod yes or no to questions. she denies any fever or chills, denies any DONNELLY, denies any cough or sob at home, denies any chest pain, had abd pain apparently for a while prior to admission and was getting worse, denies any diarrhea and apparently was constipated at home. PMD: Dr. Orozco PMHx: hypertension, hyperlipidemia, GERD, insomnia , cognitive impairement, colon mass s/p resection >30 yrs ago. Surgical hx: cholecystectomy, hx partial colectomy >30 yrs ago Social hx: denies smoking cigarettes, drinking Etoh or using drugs Allergies: Percocet causes hallucination; Codeine causes rash Meds: reviewed Review of Systems - Review of Systems Review of Systems: ROS- denies any fever or chills, denies any DONNELLY, denies any cough, is intubated now but denies any sob at home, denies any chest pain, + abd pain for few weeks that was worsening and developed nausea as well, + constipation denied any dysurea at home Past Patient History - Past Medical History & Family History Past Medical History?: Yes - Past Social History Alcohol: None Drugs: Denies Home Situation {Lives}: Alone - CARDIAC Hx Hypercholesterolemia: Yes Hx Hypertension: Yes - MUSCULOSKELETAL/RHEUMATOLOGICAL Hx Falls: No - GASTROINTESTINAL Other/Comment: hx abdominal surgeries - PSYCHIATRIC Hx Substance Use: No - SURGICAL HISTORY Hx Cholecystectomy: Yes Hx Coronary Stent: (pt denies) - ANESTHESIA Hx Anesthesia: Yes Meds Allergies/Adverse Reactions: Allergies Allergy/AdvReac Type Severity Reaction Status Date / Time acetaminophen [From Percocet] Allergy RASH Verified 07/10/18 13:08 codeine Allergy RASH Verified 07/10/18 13:08 oxycodone [From Percocet] Allergy RASH Verified 07/10/18 13:08 - Medications Medications: Current Medications Donepezil HCl (Aricept) 10 mg NG HS LEILA Last Admin: 07/12/18 23:07 Dose: 10 mg Hydrocortisone Sodium Succinate (Solu-Cortef) 50 mg IVP Q8H [facility]IL[facility] Meropenem 1 gm/ Sodium (Chloride) 100 mls @ 100 mls/hr IVPB Q8 [facility]ILA; Protocol Last Admin: 07/13/18 08:50 Dose: 100 mls/hr Metronidazole (Flagyl 500mg/100ml Ns) 100 mls @ 100 mls/hr IVPB Q8 LEILA; Pro tocol Last Admin: 07/13/18 08:49 Dose: 100 mls/hr Acetaminophen 1,000 mg/ IV (SUPPLIES) 100 mls @ 400 mls/hr IVPB Q8H LEILA; Protocol Stop: 07/13/18 19:01 Last Admin: 07/13/18 02:32 Dose: 400 mls/hr Vasopressin 100 units/ Sodium (Chloride) 105 mls @ 1.89 mls/hr IV .Q24H LEILA; Protocol Norepinephrine Bitartrate 16 (mg/ Dextrose) 266 mls @ 9.98 mls/hr IV .Q24H ONE; Protocol Stop: 07/13/18 21:48 Last Titration: 07/13/18 10:49 Dose: 20 mcg/min, 19.95 mls/hr Lactated Ringer's (Lactated Ringer's) 1,000 mls @ 75 mls/hr IV .[id number] [facility] Ketorolac Tromethamine (Toradol) 15 mg IVP Q6 PRN PRN Reason: Pain, moderate (4-7) Last Admin: 07/13/18 05:35 Dose: 15 mg Ketorolac Tromethamine (Toradol) 30 mg IVP Q6 PRN PRN Reason: Pain, severe (8-10) Last Admin: 07/11/18 21:17 Dose: 30 mg Metoprolol Tartrate (Lopressor) 2.5 mg IVP Q6H [facility] Last Admin: 07/13/18 07:01 Dose: Not Given Mirtazapine (Remeron) 30 mg PO [facility] Last Admin: 07/11/18 21:07 Dose: 30 mg Ondansetron HCl (Zofran Inj) 4 mg IVP Q6 PRN PRN Reason: Nausea/Vomiting Last Admin: 07/12/18 10:40 Dose: 4 mg Pantoprazole Sodium (Protonix Inj) 40 mg IVP DAILY [facility] Last Admin: 07/13/18 09:19 Dose: 40 mg Pravastatin Sodium (Pravachol) 20 mg PO [facility] Last Admin: 07/11/18 21:07 Dose: 20 mg Physical Exam - Constitutional Appears: No Acute Distress Additional comments: intubated but is awake and responsive - Head Exam Head Exam: ATRAUMATIC - Eye Exam Eye Exam: EOMI, PERRL - ENT Exam Additional comments: ET tube in place OG tube in place draining green fluid - Neck Exam Neck exam: Positive for: Full Rom - Respiratory Exam Additional comments: on the vent breath sounds heard b/l - Cardiovascular Exam Cardiovascular Exam: RRR, +S1, +S2 - GI/Abdominal Exam GI & Abdominal Exam: Soft Additional comments: mid lower abdomen surgical site covered by post-surgical dressing no surrounding erythema no distention - Extremities Exam Extremities exam: Positive for: normal inspection - Neurological Exam Neurological exam: Alert, Oriented x3 Results - Vital Signs Recent Vital Signs: Last Vital Signs Temp 100.2 F H 07/13/18 09:00 Pulse 75 07/13/18 10:00 Resp 22 07/13/18 10:00 BP 108/55 L 07/13/18 10:00 Pulse Ox 95 07/13/18 10:00 - Labs Result Diagrams: 07/13/18 04:30 07/13/18 04:30 Labs: Laboratory Results - last 24 hr 07/12/18 07/12/18 07/12/18 11:12 12:28 17:09 WBC RBC Hgb Hct MCV MCH MCHC RDW Plt Count MPV Neut % (Auto) Lymph % (Auto) [place] % (Auto) Eos % (Auto) Baso % (Auto) Neut # (Auto) Lymph # (Auto) [place] # (Auto) Eos # (Auto) Baso # (Auto) Neutrophils % (Manual) Band Neutrophils % Lymphocytes % (Manual) Reactive Lymphs % Monocytes % (Manual) Platelet Estimate Hypochromasia (manual) Anisocytosis (manual) Acanthocytes (Spur) PT INR APTT pCO2 43 47 H pO2 55 L 67 L HCO3 28.1 H 22.9 ABG pH 7.44 7.32 L ABG Total CO2 30.5 H 25.6 ABG O2 Saturation 92.4 L 95.2 ABG O2 Content 20.2 ABG Base Excess 4.4 H -2.4 L ABG Hemoglobin 15.7 ABG Carboxyhemoglobin 2.2 H POC ABG HHb (Measured) 4.6 ABG Methemoglobin 1.5 ABG O2 Capacity 21.2 [place] Test Yes Yes ABG Potassium 3.4 L A-a O2 Difference 41.0 159.0 Hgb O2 Saturation 91.7 L Sodium 134.0 Chloride 101.0 Glucose 106 H Lactate 0.7 Vent Mode Prvc/ac Mechanical Rate 12 FiO2 21.0 40.0 Tidal Volume 400 PEEP 5 Pressure Support CPAP Potassium Carbon Dioxide Anion Gap BUN Creatinine Est GFR ( Amer) Est GFR (Non-Af Amer) POC Glucose (mg/dL) 127 H Random Glucose Calcium Phosphorus Magnesium Total Bilirubin AST ALT Alkaline Phosphatase Troponin I NT-Pro-B Natriuret Pep Total Protein Albumin Globulin Albumin/Globulin Ratio Arterial Blood Potassium 3.4 L 07/12/18 07/12/18 07/12/18 17:10 17:10 18:00 WBC 1.1 L* D RBC 5.03 Hgb 15.0 Hct 45.2 MCV 90.0 MCH 29.8 MCHC 33.1 RDW 14.3 Plt Count 163 MPV 8.4 Neut % (Auto) 55.1 Lymph % (Auto) 39.6 [place] % (Auto) 1.1 Eos % (Auto) 4.1 H Baso % (Auto) 0.1 Neut # (Auto) 0.6 L Lymph # (Auto) 0.4 L [place] # (Auto) 0.0 Eos # (Auto) 0.0 Baso # (Auto) 0.0 Neutrophils % (Manual) Band Neutrophils % Lymphocytes % (Manual) Reactive Lymphs % Monocytes % (Manual) Platelet Estimate Hypochromasia (manual) Anisocytosis (manual) Acanthocytes (Spur) PT INR APTT pCO2 pO2 HCO3 ABG pH ABG Total CO2 ABG O2 Saturation ABG O2 Content ABG Base Excess ABG Hemoglobin ABG Carboxyhemoglobin POC ABG HHb (Measured) ABG Methemoglobin ABG O2 Capacity [place] Test ABG Potassium A-a O2 Difference Hgb O2 Saturation Sodium 139 Chloride 109 H Glucose Lactate Vent Mode Mechanical Rate FiO2 Tidal Volume PEEP Pressure Support CPAP Potassium 2.9 L Carbon Dioxide 21 L Anion Gap 12 BUN 26 H Creatinine 0.8 Est GFR ( Amer) > 60 Est GFR (Non-Af Amer) > 60 POC Glucose (mg/dL) Random Glucose 101 Calcium 7.5 L Phosphorus Magnesium Total Bilirubin 1.0 AST 22 ALT 27 Alkaline Phosphatase 52 Troponin I < 0.0120 NT-Pro-B Natriuret Pep Total Protein 4.6 L Albumin 2.3 L D Globulin 2.3 Albumin/Globulin Ratio 1.0 Arterial Blood Potassium 07/12/18 07/12/18 07/12/18 23:17 23:17 23:17 WBC 2.9 L D RBC 4.52 Hgb 13.2 Hct 40.7 MCV 90.0 MCH 29.3 MCHC 32.5 L RDW 13.8 Plt Count 162 MPV 8.3 Neut % (Auto) 90.9 H Lymph % (Auto) 6.5 L [place] % (Auto) 1.8 Eos % (Auto) 0.8 Baso % (Auto) 0.0 Neut # (Auto) 2.6 Lymph # (Auto) 0.2 L [place] # (Auto) 0.1 Eos # (Auto) 0.0 Baso # (Auto) 0.0 Neutrophils % (Manual) 76 H Band Neutrophils % 6 H Lymphocytes % (Manual) 7 L Reactive Lymphs % 3 H Monocytes % (Manual) 8 Platelet Estimate Normal Hypochromasia (manual) Slight Anisocytosis (manual) Slight Acanthocytes (Spur) Moderate PT 16.5 H INR 1.5 APTT 28.3 pCO2 pO2 HCO3 ABG pH ABG Total CO2 ABG O2 Saturation ABG O2 Content ABG Base Excess ABG Hemoglobin ABG Carboxyhemoglobin POC ABG HHb (Measured) ABG Methemoglobin ABG O2 Capacity [place] Test ABG Potassium A-a O2 Difference Hgb O2 Saturation Sodium 137 Chloride 106 Glucose Lactate Vent Mode Mechanical Rate FiO2 Tidal Volume PEEP Pressure Support CPAP Potassium 3.2 L Carbon Dioxide 22 Anion Gap 12 BUN 25 H Creatinine 1.0 Est GFR ( Amer) > 60 Est GFR (Non-Af Amer) 53 POC Glucose (mg/dL) Random Glucose 92 Calcium 7.3 L Phosphorus 2.7 Magnesium 1.2 L Total Bilirubin 1.6 H AST 28 ALT 32 Alkaline Phosphatase 45 Troponin I 0.3620 H* NT-Pro-B Natriuret Pep 627 Total Protein 4.0 L Albumin 1.9 L Globulin 2.1 L Albumin/Globulin Ratio 0.9 L Arterial Blood Potassium 07/12/18 07/13/18 07/13/18 23:25 04:22 04:30 WBC 8.8 D RBC 4.40 Hgb 13.0 Hct 40.1 MCV 91.2 MCH 29.7 MCHC 32.5 L RDW 14.1 Plt Count 171 MPV Neut % (Auto) Lymph % (Auto) [place] % (Auto) Eos % (Auto) Baso % (Auto) Neut # (Auto) Lymph # (Auto) [place] # (Auto) Eos # (Auto) Baso # (Auto) Neutrophils % (Manual) Band Neutrophils % Lymphocytes % (Manual) Reactive Lymphs % Monocytes % (Manual) Platelet Estimate Hypochromasia (manual) Anisocytosis (manual) Acanthocytes (Spur) PT INR APTT pCO2 34 L 32 L pO2 104 H 82 HCO3 24.1 20.8 L ABG pH 7.43 7.38 ABG Total CO2 23.6 19.9 L ABG O2 Saturation 99.9 H 98.4 H ABG O2 Content ABG Base Excess -1.1 -5.2 L ABG Hemoglobin ABG Carboxyhemoglobin POC ABG HHb (Measured) ABG Methemoglobin ABG O2 Capacity [place] Test Yes Yes ABG Potassium 3.2 L 4.3 A-a O2 Difference 210.0 235.0 Hgb O2 Saturation Sodium 133.0 133.0 Chloride 108.0 H 109.0 H Glucose 100 96 Lactate 2.4 H 2.3 H Vent Mode Simv Simv Mechanical Rate 10 10 FiO2 50.0 50.0 Tidal Volume 400 400 PEEP 6 6 Pressure Support 5 5 CPAP Potassium Carbon Dioxide Anion Gap BUN Creatinine Est GFR ( Amer) Est GFR (Non-Af Amer) POC Glucose (mg/dL) Random Glucose Calcium Phosphorus Magnesium Total Bilirubin AST ALT Alkaline Phosphatase Troponin I NT-Pro-B Natriuret Pep Total Protein Albumin Globulin Albumin/Globulin Ratio Arterial Blood Potassium 3.2 L 4.3 07/13/18 07/13/18 04:30 09:00 WBC RBC Hgb Hct MCV MCH MCHC RDW Plt Count MPV Neut % (Auto) Lymph % (Auto) [place] % (Auto) Eos % (Auto) Baso % (Auto) Neut # (Auto) Lymph # (Auto) [place] # (Auto) Eos # (Auto) Baso # (Auto) Neutrophils % (Manual) Band Neutrophils % Lymphocytes % (Manual) Reactive Lymphs % Monocytes % (Manual) Platelet Estimate Hypochromasia (manual) Anisocytosis (manual) Acanthocytes (Spur) PT INR APTT pCO2 33 L pO2 86 HCO3 21.1 ABG pH 7.38 ABG Total CO2 20.5 L ABG O2 Saturation 99.0 H ABG O2 Content ABG Base Excess -4.8 L ABG Hemoglobin ABG Carboxyhemoglobin POC ABG HHb (Measured) ABG Methemoglobin ABG O2 Capacity [place] Test Yes ABG Potassium 4.2 A-a O2 Difference 229.0 Hgb O2 Saturation Sodium 136 133.0 Chloride 107 108.0 H Glucose 94 Lactate 2.8 H Vent Mode Cpap Mechanical Rate FiO2 50.0 Tidal Volume PEEP Pressure Support 10 CPAP 5 Potassium 4.4 Carbon Dioxide 20 L Anion Gap 13 BUN 25 H Creatinine 1.3 H Est GFR ( Amer) 47 Est GFR (Non-Af Amer) 39 POC Glucose (mg/dL) Random Glucose 92 Calcium 7.5 L Phosphorus 3.8 Magnesium 2.5 H Total Bilirubin 0.9 AST 26 ALT 29 Alkaline Phosphatase 46 Troponin I 0.2970 H* NT-Pro-B Natriuret Pep Total Protein 4.0 L Albumin 1.9 L Globulin 2.0 L Albumin/Globulin Ratio 0.9 L Arterial Blood Potassium 4.2 Laboratory Results - last 72 hr 07/10/18 07/10/18 07/10/18 13:10 13:10 19:55 WBC 16.3 H D RBC 4.96 Hgb 14.8 Hct 44.9 MCV 90.5 MCH 29.8 MCHC 32.9 L RDW 14.2 Plt Count 228 MPV 8.7 Neut % (Auto) 90.6 H Lymph % (Auto) 4.8 L [place] % (Auto) 4.5 Eos % (Auto) 0.0 Baso % (Auto) 0.1 Neut # (Auto) 14.7 H Lymph # (Auto) 0.8 L [place] # (Auto) 0.7 Eos # (Auto) 0.0 Baso # (Auto) 0.0 Neutrophils % (Manual) 91 H Band Neutrophils % Lymphocytes % (Manual) 5 L Reactive Lymphs % Monocytes % (Manual) 4 Platelet Estimate Normal RBC Morphology Normal Hypochromasia (manual) Anisocytosis (manual) Acanthocytes (Spur) PT INR APTT pCO2 pO2 HCO3 ABG pH ABG Total CO2 ABG O2 Saturation ABG O2 Content ABG Base Excess ABG Hemoglobin ABG Carboxyhemoglobin POC ABG HHb (Measured) ABG Methemoglobin ABG O2 Capacity [place] Test ABG Potassium A-a O2 Difference Hgb O2 Saturation Glucose Lactate Vent Mode Mechanical Rate FiO2 Tidal Volume PEEP Pressure Support CPAP Sodium 137 Potassium 3.9 Chloride 102 Carbon Dioxide 22 Anion Gap 17 BUN 24 H Creatinine 0.8 Est GFR ( Amer) > 60 Est GFR (Non-Af Amer) > 60 POC Glucose (mg/dL) Random Glucose 126 H Lactic Acid Calcium 9.8 Phosphorus Magnesium Total Bilirubin 0.7 AST 24 ALT 14 Alkaline Phosphatase 73 Troponin I < 0.0120 NT-Pro-B Natriuret Pep Total Protein 6.7 Albumin 3.8 Globulin 3.0 Albumin/Globulin Ratio 1.3 Lipase 115 Procalcitonin Arterial Blood Potassium Urine Color Yellow Urine Clarity Clear Urine pH 6.0 Ur Specific [place] > 1.060 H Urine Protein Negative Urine Glucose (UA) Neg Urine Ketones Negative Urine Blood Negative Urine Nitrate Negative Urine Bilirubin Negative Urine Urobilinogen 0.2-1.0 Ur Leukocyte Esterase Neg Urine RBC (Auto) 1 Urine Microscopic WBC 3 Ur Squamous Epith Cells 1 Blood Type Antibody Screen BBK History Checked 07/10/18 07/10/18 07/11/18 20:00 20:00 05:35 WBC 3.3 L D RBC 4.91 Hgb 14.7 Hct 44.4 MCV 90.5 MCH 30.1 MCHC 33.2 RDW 14.4 Plt Count 212 MPV 8.7 Neut % (Auto) 54.6 Lymph % (Auto) 30.2 [place] % (Auto) 14.2 H Eos % (Auto) 0.6 Baso % (Auto) 0.4 Neut # (Auto) 1.8 Lymph # (Auto) 1.0 [place] # (Auto) 0.5 Eos # (Auto) 0.0 Baso # (Auto) 0.0 Neutrophils % (Manual) Band Neutrophils % Lymphocytes % (Manual) Reactive Lymphs % Monocytes % (Manual) Platelet Estimate RBC Morphology Hypochromasia (manual) Anisocytosis (manual) Acanthocytes (Spur) PT 12.1 INR 1.1 APTT 32.2 pCO2 pO2 HCO3 ABG pH ABG Total CO2 ABG O2 Saturation ABG O2 Content ABG Base Excess ABG Hemoglobin ABG Carboxyhemoglobin POC ABG HHb (Measured) ABG Methemoglobin ABG O2 Capacity [place] Test ABG Potassium A-a O2 Difference Hgb O2 Saturation Glucose Lactate Vent Mode Mechanical Rate FiO2 Tidal Volume PEEP Pressure Support CPAP Sodium Potassium Chloride Carbon Dioxide Anion Gap BUN Creatinine Est GFR ( Amer) Est GFR (Non-Af Amer) POC Glucose (mg/dL) Random Glucose Lactic Acid Calcium Phosphorus Magnesium Total Bilirubin AST ALT Alkaline Phosphatase Troponin I NT-Pro-B Natriuret Pep Total Protein Albumin Globulin Albumin/Globulin Ratio Lipase Procalcitonin Arterial Blood Potassium Urine Color Urine Clarity Urine pH Ur Specific [place] Urine Protein Urine Glucose (UA) Urine Ketones Urine Blood Urine Nitrate Urine Bilirubin Urine Urobilinogen Ur Leukocyte Esterase Urine RBC (Auto) Urine Microscopic WBC Ur Squamous Epith Cells Blood Type A POSITIVE Antibody Screen Negative BBK History Checked Patient has bt 07/11/18 07/11/18 07/11/18 05:35 05:35 06:20 WBC RBC Hgb Hct MCV MCH MCHC RDW Plt Count MPV Neut % (Auto) Lymph % (Auto) [place] % (Auto) Eos % (Auto) Baso % (Auto) Neut # (Auto) Lymph # (Auto) [place] # (Auto) Eos # (Auto) Baso # (Auto) Neutrophils % (Manual) Band Neutrophils % Lymphocytes % (Manual) Reactive Lymphs % Monocytes % (Manual) Platelet Estimate RBC Morphology Hypochromasia (manual) Anisocytosis (manual) Acanthocytes (Spur) PT INR APTT pCO2 pO2 HCO3 ABG pH ABG Total CO2 ABG O2 Saturation ABG O2 Content ABG Base Excess ABG Hemoglobin ABG Carboxyhemoglobin POC ABG HHb (Measured) ABG Methemoglobin ABG O2 Capacity [place] Test ABG Potassium A-a O2 Difference Hgb O2 Saturation Glucose Lactate Vent Mode Mechanical Rate FiO2 Tidal Volume PEEP Pressure Support CPAP Sodium 138 Potassium 3.7 Chloride 99 Carbon Dioxide 26 Anion Gap 17 BUN 23 H Creatinine 1.1 Est GFR ( Amer) 57 Est GFR (Non-Af Amer) 47 POC Glucose (mg/dL) Random Glucose 106 H Lactic Acid 1.5 Calcium 9.4 Phosphorus 3.9 Magnesium 1.8 Total Bilirubin 1.0 AST 19 ALT 20 Alkaline Phosphatase 70 Troponin I NT-Pro-B Natriuret Pep Total Protein 6.4 Albumin 3.6 Globulin 2.8 Albumin/Globulin Ratio 1.3 Lipase Procalcitonin 0.16 L Arterial Blood Potassium Urine Color Urine Clarity Urine pH Ur Specific [place] Urine Protein Urine Glucose (UA) Urine Ketones Urine Blood Urine Nitrate Urine Bilirubin Urine Urobilinogen Ur Leukocyte Esterase Urine RBC (Auto) Urine Microscopic WBC Ur Squamous Epith Cells Blood Type Antibody Screen BBK History Checked 07/11/18 07/11/18 07/12/18 13:10 22:39 05:50 WBC 3.4 L 4.4 L RBC 4.61 4.57 Hgb 13.9 13.7 Hct 40.7 41.5 MCV 88.4 D 90.8 D MCH 30.2 30.0 MCHC 34.2 33.0 RDW 14.1 14.2 Plt Count 212 198 MPV 8.3 Neut % (Auto) 37.8 L Lymph % (Auto) 42.7 H [place] % (Auto) 18.4 H Eos % (Auto) 0.7 Baso % (Auto) 0.4 Neut # (Auto) 1.3 L Lymph # (Auto) 1.4 [place] # (Auto) 0.6 Eos # (Auto) 0.0 Baso # (Auto) 0.0 Neutrophils % (Manual) Band Neutrophils % Lymphocytes % (Manual) Reactive Lymphs % Monocytes % (Manual) Platelet Estimate RBC Morphology Hypochromasia (manual) Anisocytosis (manual) Acanthocytes (Spur) PT INR APTT pCO2 pO2 HCO3 ABG pH ABG Total CO2 ABG O2 Saturation ABG O2 Content ABG Base Excess ABG Hemoglobin ABG Carboxyhemoglobin POC ABG HHb (Measured) ABG Methemoglobin ABG O2 Capacity [place] Test ABG Potassium A-a O2 Difference Hgb O2 Saturation Glucose Lactate Vent Mode Mechanical Rate FiO2 Tidal Volume PEEP Pressure Support CPAP Sodium Potassium Chloride Carbon Dioxide Anion Gap BUN Creatinine Est GFR ( Amer) Est GFR (Non-Af Amer) POC Glucose (mg/dL) 84 Random Glucose Lactic Acid Calcium Phosphorus Magnesium Total Bilirubin AST ALT Alkaline Phosphatase Troponin I NT-Pro-B Natriuret Pep Total Protein Albumin Globulin Albumin/Globulin Ratio Lipase Procalcitonin Arterial Blood Potassium Urine Color Urine Clarity Urine pH Ur Specific [place] Urine Protein Urine Glucose (UA) Urine Ketones Urine Blood Urine Nitrate Urine Bilirubin Urine Urobilinogen Ur Leukocyte Esterase Urine RBC (Auto) Urine Microscopic WBC Ur Squamous Epith Cells Blood Type Antibody Screen BBK History Checked 07/12/18 07/12/18 07/12/18 05:50 05:59 11:12 WBC RBC Hgb Hct MCV MCH MCHC RDW Plt Count MPV Neut % (Auto) Lymph % (Auto) [place] % (Auto) Eos % (Auto) Baso % (Auto) Neut # (Auto) Lymph # (Auto) [place] # (Auto) Eos # (Auto) Baso # (Auto) Neutrophils % (Manual) Band Neutrophils % Lymphocytes % (Manual) Reactive Lymphs % Monocytes % (Manual) Platelet Estimate RBC Morphology Hypochromasia (manual) Anisocytosis (manual) Acanthocytes (Spur) PT INR APTT pCO2 pO2 HCO3 ABG pH ABG Total CO2 ABG O2 Saturation ABG O2 Content ABG Base Excess ABG Hemoglobin ABG Carboxyhemoglobin POC ABG HHb (Measured) ABG Methemoglobin ABG O2 Capacity [place] Test ABG Potassium A-a O2 Difference Hgb O2 Saturation Glucose Lactate Vent Mode Mechanical Rate FiO2 Tidal Volume PEEP Pressure Support CPAP Sodium 137 Potassium 3.6 Chloride 101 Carbon Dioxide 28 Anion Gap 12 BUN 30 H Creatinine 0.9 Est GFR ( Amer) > 60 Est GFR (Non-Af Amer) 60 POC Glucose (mg/dL) 109 127 H Random Glucose 100 Lactic Acid Calcium 8.9 Phosphorus Magnesium Total Bilirubin 1.0 AST 17 ALT 21 Alkaline Phosphatase 60 Troponin I NT-Pro-B Natriuret Pep Total Protein 5.8 L Albumin 3.2 L Globulin 2.6 Albumin/Globulin Ratio 1.2 Lipase Procalcitonin Arterial Blood Potassium Urine Color Urine Clarity Urine pH Ur Specific [place] Urine Protein Urine Glucose (UA) Urine Ketones Urine Blood Urine Nitrate Urine Bilirubin Urine Urobilinogen Ur Leukocyte Esterase Urine RBC (Auto) Urine Microscopic WBC Ur Squamous Epith Cells Blood Type Antibody Screen BBK History Checked 07/12/18 07/12/18 07/12/18 12:28 17:09 17:10 WBC 1.1 L* D RBC 5.03 Hgb 15.0 Hct 45.2 MCV 90.0 MCH 29.8 MCHC 33.1 RDW 14.3 Plt Count 163 MPV 8.4 Neut % (Auto) 55.1 Lymph % (Auto) 39.6 [place] % (Auto) 1.1 Eos % (Auto) 4.1 H Baso % (Auto) 0.1 Neut # (Auto) 0.6 L Lymph # (Auto) 0.4 L [place] # (Auto) 0.0 Eos # (Auto) 0.0 Baso # (Auto) 0.0 Neutrophils % (Manual) Band Neutrophils % Lymphocytes % (Manual) Reactive Lymphs % Monocytes % (Manual) Platelet Estimate RBC Morphology Hypochromasia (manual) Anisocytosis (manual) Acanthocytes (Spur) PT INR APTT pCO2 43 47 H pO2 55 L 67 L HCO3 28.1 H 22.9 ABG pH 7.44 7.32 L ABG Total CO2 30.5 H 25.6 ABG O2 Saturation 92.4 L 95.2 ABG O2 Content 20.2 ABG Base Excess 4.4 H -2.4 L ABG Hemoglobin 15.7 ABG Carboxyhemoglobin 2.2 H POC ABG HHb (Measured) 4.6 ABG Methemoglobin 1.5 ABG O2 Capacity 21.2 [place] Test Yes Yes ABG Potassium 3.4 L A-a O2 Difference 41.0 159.0 Hgb O2 Saturation 91.7 L Glucose 106 H Lactate 0.7 Vent Mode Prvc/ac Mechanical Rate 12 FiO2 21.0 40.0 Tidal Volume 400 PEEP 5 Pressure Support CPAP Sodium 134.0 Potassium Chloride 101.0 Carbon Dioxide Anion Gap BUN Creatinine Est GFR ( Amer) Est GFR (Non-Af Amer) POC Glucose (mg/dL) Random Glucose Lactic Acid Calcium Phosphorus Magnesium Total Bilirubin AST ALT Alkaline Phosphatase Troponin I NT-Pro-B Natriuret Pep Total Protein Albumin Globulin Albumin/Globulin Ratio Lipase Procalcitonin Arterial Blood Potassium 3.4 L Urine Color Urine Clarity Urine pH Ur Specific [place] Urine Protein Urine Glucose (UA) Urine Ketones Urine Blood Urine Nitrate Urine Bilirubin Urine Urobilinogen Ur Leukocyte Esterase Urine RBC (Auto) Urine Microscopic WBC Ur Squamous Epith Cells Blood Type Antibody Screen BBK History Checked 07/12/18 07/12/18 07/12/18 17:10 18:00 23:17 WBC 2.9 L D RBC 4.52 Hgb 13.2 Hct 40.7 MCV 90.0 MCH 29.3 MCHC 32.5 L RDW 13.8 Plt Count 162 MPV 8.3 Neut % (Auto) 90.9 H Lymph % (Auto) 6.5 L [place] % (Auto) 1.8 Eos % (Auto) 0.8 Baso % (Auto) 0.0 Neut # (Auto) 2.6 Lymph # (Auto) 0.2 L [place] # (Auto) 0.1 Eos # (Auto) 0.0 Baso # (Auto) 0.0 Neutrophils % (Manual) 76 H Band Neutrophils % 6 H Lymphocytes % (Manual) 7 L Reactive Lymphs % 3 H Monocytes % (Manual) 8 Platelet Estimate Normal RBC Morphology Hypochromasia (manual) Slight Anisocytosis (manual) Slight Acanthocytes (Spur) Moderate PT INR APTT pCO2 pO2 HCO3 ABG pH ABG Total CO2 ABG O2 Saturation ABG O2 Content ABG Base Excess ABG Hemoglobin ABG Carboxyhemoglobin POC ABG HHb (Measured) ABG Methemoglobin ABG O2 Capacity [place] Test ABG Potassium A-a O2 Difference Hgb O2 Saturation Glucose Lactate Vent Mode Mechanical Rate FiO2 Tidal Volume PEEP Pressure Support CPAP Sodium 139 Potassium 2.9 L Chloride 109 H Carbon Dioxide 21 L Anion Gap 12 BUN 26 H Creatinine 0.8 Est GFR ( Amer) > 60 Est GFR (Non-Af Amer) > 60 POC Glucose (mg/dL) Random Glucose 101 Lactic Acid Calcium 7.5 L Phosphorus Magnesium Total Bilirubin 1.0 AST 22 ALT 27 Alkaline Phosphatase 52 Troponin I < 0.0120 NT-Pro-B Natriuret Pep Total Protein 4.6 L Albumin 2.3 L D Globulin 2.3 Albumin/Globulin Ratio 1.0 Lipase Procalcitonin Arterial Blood Potassium Urine Color Urine Clarity Urine pH Ur Specific [place] Urine Protein Urine Glucose (UA) Urine Ketones Urine Blood Urine Nitrate Urine Bilirubin Urine Urobilinogen Ur Leukocyte Esterase Urine RBC (Auto) Urine Microscopic WBC Ur Squamous Epith Cells Blood Type Antibody Screen BBK History Checked 07/12/18 07/12/18 07/12/18 23:17 23:17 23:25 WBC RBC Hgb Hct MCV MCH MCHC RDW Plt Count MPV Neut % (Auto) Lymph % (Auto) [place] % (Auto) Eos % (Auto) Baso % (Auto) Neut # (Auto) Lymph # (Auto) [place] # (Auto) Eos # (Auto) Baso # (Auto) Neutrophils % (Manual) Band Neutrophils % Lymphocytes % (Manual) Reactive Lymphs % Monocytes % (Manual) Platelet Estimate RBC Morphology Hypochromasia (manual) Anisocytosis (manual) Acanthocytes ([place]) PT 16.5 H INR 1.5 APTT 28.3 pCO2 34 L pO2 104 H HCO3 24.1 ABG pH 7.43 ABG Total CO2 23.6 ABG O2 Saturation 99.9 H ABG O2 Content ABG Base Excess -1.1 ABG Hemoglobin ABG Carboxyhemoglobin POC ABG HHb (Measured) ABG Methemoglobin ABG O2 Capacity [place] Test Yes ABG Potassium 3.2 L A-a O2 Difference 210.0 Hgb O2 Saturation Glucose 100 Lactate 2.4 H Vent Mode Simv Mechanical Rate 10 FiO2 50.0 Tidal Volume 400 PEEP 6 Pressure Support 5 CPAP Sodium 137 133.0 Potassium 3.2 L Chloride 106 108.0 H Carbon Dioxide 22 Anion Gap 12 BUN 25 H Creatinine 1.0 Est GFR ( Amer) > 60 Est GFR (Non-Af Amer) 53 POC Glucose (mg/dL) Random Glucose 92 Lactic Acid Calcium 7.3 L Phosphorus 2.7 Magnesium 1.2 L Total Bilirubin 1.6 H AST 28 ALT 32 Alkaline Phosphatase 45 Troponin I 0.3620 H* NT-Pro-B Natriuret Pep 627 Total Protein 4.0 L Albumin 1.9 L Globulin 2.1 L Albumin/Globulin Ratio 0.9 L Lipase Procalcitonin Arterial Blood Potassium 3.2 L Urine Color Urine Clarity Urine pH Ur Specific [place] Urine Protein Urine Glucose (UA) Urine Ketones Urine Blood Urine Nitrate Urine Bilirubin Urine Urobilinogen Ur Leukocyte Esterase Urine RBC (Auto) Urine Microscopic WBC Ur Squamous Epith Cells Blood Type Antibody Screen BBK History Checked 07/13/18 07/13/18 07/13/18 04:22 04:30 04:30 WBC 8.8 D RBC 4.40 Hgb 13.0 Hct 40.1 MCV 91.2 MCH 29.7 MCHC 32.5 L RDW 14.1 Plt Count 171 MPV Neut % (Auto) Lymph % (Auto) [place] % (Auto) Eos % (Auto) Baso % (Auto) Neut # (Auto) Lymph # (Auto) [place] # (Auto) Eos # (Auto) Baso # (Auto) Neutrophils % (Manual) Band Neutrophils % Lymphocytes % (Manual) Reactive Lymphs % Monocytes % (Manual) Platelet Estimate RBC Morphology Hypochromasia (manual) Anisocytosis (manual) Acanthocytes (Spur) PT INR APTT pCO2 32 L pO2 82 HCO3 20.8 L ABG pH 7.38 ABG Total CO2 19.9 L ABG O2 Saturation 98.4 H ABG O2 Content ABG Base Excess -5.2 L ABG Hemoglobin ABG Carboxyhemoglobin POC ABG HHb (Measured) ABG Methemoglobin ABG O2 Capacity [place] Test Yes ABG Potassium 4.3 A-a O2 Difference 235.0 Hgb O2 Saturation Glucose 96 Lactate 2.3 H Vent Mode Simv Mechanical Rate 10 FiO2 50.0 Tidal Volume 400 PEEP 6 Pressure Support 5 CPAP Sodium 133.0 136 Potassium 4.4 Chloride 109.0 H 107 Carbon Dioxide 20 L Anion Gap 13 BUN 25 H Creatinine 1.3 H Est GFR ( Amer) 47 Est GFR (Non-Af Amer) 39 POC Glucose (mg/dL) Random Glucose 92 Lactic Acid Calcium 7.5 L Phosphorus 3.8 Magnesium 2.5 H Total Bilirubin 0.9 AST 26 ALT 29 Alkaline Phosphatase 46 Troponin I 0.2970 H* NT-Pro-B Natriuret Pep Total Protein 4.0 L Albumin 1.9 L Globulin 2.0 L Albumin/Globulin Ratio 0.9 L Lipase Procalcitonin Arterial Blood Potassium 4.3 Urine Color Urine Clarity Urine pH Ur Specific [place] Urine Protein Urine Glucose (UA) Urine Ketones Urine Blood Urine Nitrate Urine Bilirubin Urine Urobilinogen Ur Leukocyte Esterase Urine RBC (Auto) Urine Microscopic WBC Ur Squamous Epith Cells Blood Type Antibody Screen BBK History Checked 07/13/18 09:00 WBC RBC Hgb Hct MCV MCH MCHC RDW Plt Count MPV Neut % (Auto) Lymph % (Auto) [place] % (Auto) Eos % (Auto) Baso % (Auto) Neut # (Auto) Lymph # (Auto) [place] # (Auto) Eos # (Auto) Baso # (Auto) Neutrophils % (Manual) Band Neutrophils % Lymphocytes % (Manual) Reactive Lymphs % Monocytes % (Manual) Platelet Estimate RBC Morphology Hypochromasia (manual) Anisocytosis (manual) Acanthocytes (Spur) PT INR APTT pCO2 33 L pO2 86 HCO3 21.1 ABG pH 7.38 ABG Total CO2 20.5 L ABG O2 Saturation 99.0 H ABG O2 Content ABG Base Excess -4.8 L ABG Hemoglobin ABG Carboxyhemoglobin POC ABG HHb (Measured) ABG Methemoglobin ABG O2 Capacity [place] Test Yes ABG Potassium 4.2 A-a O2 Difference 229.0 Hgb O2 Saturation Glucose 94 Lactate 2.8 H Vent Mode Cpap Mechanical Rate FiO2 50.0 Tidal Volume PEEP Pressure Support 10 CPAP 5 Sodium 133.0 Potassium Chloride 108.0 H Carbon Dioxide Anion Gap BUN Creatinine Est GFR ( Amer) Est GFR (Non-Af Amer) POC Glucose (mg/dL) Random Glucose Lactic Acid Calcium Phosphorus Magnesium Total Bilirubin AST ALT Alkaline Phosphatase Troponin I NT-Pro-B Natriuret Pep Total Protein Albumin Globulin Albumin/Globulin Ratio Lipase Procalcitonin Arterial Blood Potassium 4.2 Urine Color Urine Clarity Urine pH Ur Specific [place] Urine Protein Urine Glucose (UA) Urine Ketones Urine Blood Urine Nitrate Urine Bilirubin Urine Urobilinogen Ur Leukocyte Esterase Urine RBC (Auto) Urine Microscopic WBC Ur Squamous Epith Cells Blood Type Antibody Screen BBK History Checked Microbiology 07/10/18 19:55 Urine Random Urine Culture - Final Gram Negative [place] Accession No. : [id number] Patient Name / ID : ROLANDO DIAZ / [id number] Exam Date : 07/13/2018 08:10:00 ( Approved ) Study Comment : Sex / Age : F / 87Y Creator : Marquise Pantoja MD Dictator : Marquise Pantoja MD Flatbed Driver : Corporate Strategist : Marquise Pantoja MD Approver2 : Report Date : 07/13/2018 08:53:38 My Comment : Date of service: 07/13/2018 PROCEDURE: CHEST RADIOGRAPH, 1 VIEW HISTORY: intubated COMPARISON: 07/13/2018 at 4:28 FINDINGS: LUNGS: There appears to be some mild increase in opacification in both lung chicas probably related to mild increasing congestion or atelectasis. New small additional patchy infiltrates are not excluded. Endotracheal tube and NG tube are unchanged in position. Right central line is also stable. PLEURA: Small left pleural effusion is not significantly changed. CARDIOVASCULAR: There is aortic atherosclerotic calcification present. There may be some mild increase in vascular congestion. OSSEOUS STRUCTURES: No significant abnormalities. VISUALIZED UPPER ABDOMEN: Normal. OTHER FINDINGS: None. IMPRESSION: Mild increase in opacification suggesting either related to increased congestion or increased patchy infiltrates. Accession No. : [id number] Patient Name / ID : ROLANDO DIAZ D / [id number] Exam Date : 07/10/2018 15:26:46 ( Approved ) Study Comment : Sex / Age : F / 87Y Creator : Anabella Pina Dictator : Anabella Pina Flatbed Driver : Corporate Strategist : Anabella Pina Approver2 : Report Date : 07/10/2018 16:24:01 My Comment : Date of service: 07/10/2018 PROCEDURE: CT Abdomen and Pelvis with contrast HISTORY: abd pain COMPARISON: None. TECHNIQUE: Contrast dose: 85 mL of Omnipaque 300 Radiation dose: Total exam DLP = 382.91 mGy-cm. This CT exam was performed using one or more of the following dose reduction techniques: Automated exposure control, adjustment of the mA and/or kV according to patient size, and/or use of iterative reconstruction technique. FINDINGS: LOWER THORAX: Subsegmental atelectatic changes at the left lung base noted. Concomitant underlying mass here cannot be excluded. Follow-up recommended. This is likely in part associated with compressive atelectasis from a large hiatal hernia in the inferior left hemithorax. LIVER: Unremarkable. No gross lesion or ductal dilatation. Small amount of fluid borders the inferior right hepatic lobe. GALLBLADDER AND BILE DUCTS: Not identified. No gross clips here seen. Clinical correlation is needed. PANCREAS: Unremarkable. No gross lesion or ductal dilatation. SPLEEN: Unremarkable. ADRENALS: Unremarkable. No mass. KIDNEYS AND URETERS: Parapelvic and bilateral renal hypodense masses probably relating to incidental concomitant renal cysts. The right appear largely parapelvic that on the left are smaller parapelvic and probably a and the larger 1 is posterior cortical measuring 1.6 cm. No hydronephrosis. No solid mass. VASCULATURE: No aortic aneurysm. There is presence of aortic atherosclerotic calcification and mural plaque on cross sectional studies. BOWEL: There is diffuse and extensive small bowel dilatation present compatible with a distal small bowel obstruction.. The dilatation extends down into the pelvis-no obstructing mass is identified. The colon is collapsed. A few colonic left and more numerous and extensive right colonic diverticuli are present. There is more extensive right sided colonic diverticulosis noted. APPENDIX: Portion of the appendix is a is believed identified and unremarkable. PERITONEUM: Trace amount of fluid is seen around the liver. Free air seen. Anterior abdominal wall postsurgical changes noted. LYMPH NODES: Unremarkable. No enlarged lymph nodes. BLADDER: Unremarkable. REPRODUCTIVE: Postmenopausal appearing uterus with large central calcification-probably an old calcified fibroid measuring approximately 13 mm in size near the fundus. No adnexal masses noted. BONES: T6 abnormal bone mineralization is noted. 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 This is in addition to prominent spondylosis. Clinical correlation with any known osseous or hematological medical pathology is needed. OTHER FINDINGS: None. IMPRESSION: Extensive small bowel dilatation without distal obstructing mass-a distal small bowel obstruction is suspect. Is fluid around the hepatic margin is noted. No free air seen. Colon is collapsed. Colonic diverticulosis-right colon greater than left. Distal small bowel obstruction was called in and directly discussed with the ER physician Dr. Montero At 4:23 p.m. on 07/10/2018. It was also noted that the patient has a large hiatal hand hernia and this was conveyed as well in terms of any NG tube placement. Other findings as above. Assessment & Plan (1) Small bowel obstruction Status: Acute (2) Sepsis Status: Acute - Assessment and Plan (Free Text) Assessment: A/P- 87 year old female with multiple past medical history and s/p past hemicolectomy and reversal of colostomy who was admitted with abd . pain and found to have SBO and is POD #1 s/p Exploratory laparotomy, extenive lysis of adhesions, repair of enterotomies x 2, washout. pt. in ICU and on pressors and intubated but awake. plan- check blood cx x 2. check UA and urine cx. advise to cover broadly for gut melanie and hence advise to initiate meropenem and flagyl last night. may need to start antifungal as well since this was interstinal surgery and hence gut melanie possible spillage should be covered. would also advise to start pt. empirically on vanco since she is intubated and just had bowel surgery to cover empirically for staph. keep vanco trough <15. all labs and imaging an chart notes were reviewed. all above d/w Welfare Eligibility Worker and the patient as well. Thank you for allowing me to take part in the care of this patient. Critical care time spnet 60 minutes.
--- NOTE | 2018-07-13 12:25 | CARD ---
APPROVED REPORT Date of service: 07/12/2018 EKG Measurement Heart [id number] ND [id number] <Conclusion> Sinus tachycardia Incomplete RBBB Otherwise normal ECG
--- NOTE | 2018-07-13 14:38 | CP.CCUPN ---
CCU Subjective - Physician Review Events Since Last Encounter (Free Text): 07/13/18 14:34 alert, no major complaints, minor pain. CCU Objective - Vital Signs / Intake & Output Vital Signs (Last 4 hours): Vital Signs Temp Pulse Resp BP Pulse Ox 07/13/18 13:57 100.2 F H 85 32 H 93/50 L 95 07/13/18 13:16 104 H 105/65 07/13/18 13:00 97 H 33 H 106/57 L 07/13/18 12:00 100.4 F H 91 H 25 H 105/55 L 96 07/13/18 11:58 100.4 F H 91 H 24 98/55 L 96 07/13/18 11:51 101/56 L 07/13/18 10:59 100.2 F H 93 H 22 99/55 L 95 Intake and Output (Last 8hrs): Intake & Output 07/12/18 07/13/18 07/13/18 22:59 06:59 14:59 Intake Total 4898 1925 4041 Output Total 195 592 Balance 4703 1925 3449 Intake: IV 4698 1200 2141 Intake, Piggyback 644 066 3943 Oral 0 0 0 Output: Gastric Drainage 50 Gastric Amount 250 Nares 250 Urine 145 342 Urethral (Huang) 342 - Physical Exam Head: Positive for: Atraumatic, Normocephalic Pupils: Positive for: PERRL Extroacular Muscles: Positive for: EOMI Conjunctiva: Positive for: Normal Mouth: Positive for: Moist Mucous Membranes Neck: Positive for: Normal Range of Motion Respiratory/Chest: Positive for: Good Air Exchange, Decreased Breath Sounds Cardiovascular: Positive for: Irregular Rhythm, Tachycardic Abdomen: Positive for: Normal Bowel Sounds. Negative for: Tenderness Upper Extremity: Positive for: Normal Inspection Lower Extremity: Positive for: Normal Inspection Psychiatric: Positive for: Alert - Medications Active Medications: Active Medications Generic Name Dose Route Start Last Admin Trade Name Freq PRN Reason Stop Dose Admin Donepezil HCl 10 mg 07/10/18 22:00 07/12/18 23:07 Aricept NG 10 mg HS LEILA Administration Enoxaparin Sodium 30 mg 07/13/18 12:15 Lovenox SC DAILY LEILA Protocol Hydrocortisone Sodium Succinate 50 mg 07/13/18 09:15 Solu-Cortef IVP Q8H LEILA Meropenem 1 gm/ Sodium 100 mls @ 100 mls/hr 07/12/18 18:45 07/13/18 08:50 Chloride IVPB 100 mls/hr Q8 LEILA Administration Protocol Metronidazole 100 mls @ 100 mls/hr 07/12/18 18:45 07/13/18 08:49 Flagyl 500mg/100ml Ns IVPB 100 mls/hr Q8 LEILA Administration Protocol Acetaminophen 1,000 mg/ IV 100 mls @ 400 mls/hr 07/12/18 19:00 07/13/18 13:04 SUPPLIES IVPB 07/13/18 19:01 400 mls/hr Q8H LEILA Administration Protocol Vasopressin 100 units/ Sodium 105 mls @ 1.89 mls/hr 07/12/18 20:15 07/13/18 11:51 Chloride IV 0.02 units/min .Q24H LEILA 1.26 mls/hr Administration Protocol 0.03 UNITS/MIN Norepinephrine Bitartrate 16 266 mls @ 9.98 mls/hr 07/12/18 22:37 07/13/18 13:23 mg/ Dextrose IV 07/13/18 21:48 15 mcg/min .Q24H ONE 14.96 mls/hr Titration Protocol 10 MCG/MIN Lactated Ringer's 1,000 mls @ 75 mls/hr 07/13/18 09:10 07/13/18 11:07 Lactated Ringer's IV 75 mls/hr .[id number] LEILA Administration Fluconazole 50 mls @ 50 mls/hr 07/13/18 12:00 Diflucan Iv 100 Mg/50 Ml Ns IVPB DAILY LEILA Protocol Vancomycin HCl 750 mg/ Sodium 250 mls @ 166.667 mls/hr 07/13/18 12:00 07/13/18 14:00 Chloride IVPB 166.667 mls/hr Q12 LEILA Administration Protocol Ketorolac Tromethamine 15 mg 07/10/18 19:15 07/13/18 14:23 Toradol IVP 15 mg Q6 PRN Administration Pain, moderate (4-7) Ketorolac Tromethamine 30 mg 07/10/18 19:16 07/11/18 21:17 Toradol IVP 30 mg Q6 PRN Administration Pain, severe (8-10) Metoprolol Tartrate 2.5 mg 07/13/18 06:40 07/13/18 13:16 Lopressor IVP Not Given Q6H LEILA Mirtazapine 30 mg 07/10/18 22:00 07/11/18 21:07 Remeron PO 30 mg HS LEILA Administration Ondansetron HCl 4 mg 07/10/18 19:05 07/12/18 10:40 Zofran Inj IVP 4 mg Q6 PRN Administration Nausea/Vomiting Pantoprazole Sodium 40 mg 07/11/18 09:00 07/13/18 09:19 Protonix Inj IVP 40 mg DAILY LEILA Administration Pravastatin Sodium 20 mg 07/10/18 22:00 07/11/18 21:07 Pravachol PO 20 mg HS LEILA Administration - Patient Studies Lab Studies: Lab Studies 07/13/18 07/13/18 07/13/18 Range/Units 09:00 04:30 04:30 WBC 8.8 D (4.8-10.8) K/uL RBC 4.40 (3.80-5.20) Mil/uL Hgb 13.0 (12.0-16.0) g/dL Hct 40.1 (34.0-47.0) % MCV 91.2 (81.0-99.0) fl MCH 29.7 (27.0-31.0) pg MCHC 32.5 L (33.0-37.0) g/dL RDW 14.1 (11.5-14.5) % Plt Count 171 (130-400) K/uL MPV (7.2-11.7) fl Neut % (Auto) (50.0-75.0) % Lymph % (Auto) (20.0-40.0) % Vernon % (Auto) (0.0-10.0) % Eos % (Auto) (0.0-4.0) % Baso % (Auto) (0.0-2.0) % Neut # (Auto) (1.8-7.0) K/uL Lymph # (Auto) (1.0-4.3) K/uL Vernon # (Auto) (0.0-0.8) K/uL Eos # (Auto) (0.0-0.7) K/uL Baso # (Auto) (0.0-0.2) K/uL Neutrophils % (Manual) (42-75) % Band Neutrophils % (0-2) % Lymphocytes % (Manual) (20-50) % Reactive Lymphs % (0-0) % Monocytes % (Manual) (0-10) % Platelet Estimate (NORMAL) Hypochromasia (manual) Anisocytosis (manual) Acanthocytes (Spur) PT (9.8-13.1) Seconds INR APTT (25.6-37.1) Seconds pCO2 33 L (35-45) mm/Hg pO2 86 (80-100) mm/Hg HCO3 21.1 (21-28) mmol/L ABG pH 7.38 (7.35-7.45) ABG Total CO2 20.5 L (22-28) mmol/L ABG O2 Saturation 99.0 H (95-98) % ABG O2 Content (15-23) ML/dL ABG Base Excess -4.8 L (-2.0-3.0) mmol/L ABG Hemoglobin (11.7-17.4) g/dL ABG Carboxyhemoglobin (0.5-1.5) % POC ABG HHb (Measured) (0.0-5.0) % ABG Methemoglobin (0.0-3.0) % ABG O2 Capacity (16-24) mL/dL Mustapha Test Yes ABG Potassium 4.2 (3.6-5.2) mmol/L A-a O2 Difference 229.0 mm/Hg Hgb O2 Saturation (95.0-98.0) % Glucose 94 (65-105) mg/dL Lactate 2.8 H (0.7-2.1) mmol/L Vent Mode Cpap Mechanical Rate FiO2 50.0 % Tidal Volume PEEP Pressure Support 10 CPAP 5 Sodium 133.0 136 (132-148) mmol/l Potassium 4.4 (3.6-5.0) MMOL/L Chloride 108.0 H 107 (98-107) mmol/L Carbon Dioxide 20 L (22-30) mmol/L Anion Gap 13 (10-20) BUN 25 H (7-17) mg/dl Creatinine 1.3 H (0.7-1.2) mg/dl Est GFR ( Amer) 47 Est GFR (Non-Af Amer) 39 Random Glucose 92 (65-105) mg/dL Calcium 7.5 L (8.4-10.2) mg/dL Phosphorus 3.8 (2.5-4.5) mg/dl Magnesium 2.5 H (1.6-2.3) MG/DL Total Bilirubin 0.9 (0.2-1.3) mg/dl AST 26 (14-36) U/L ALT 29 (9-52) U/L Alkaline Phosphatase 46 (38-126) U/L Troponin I 0.2970 H* (0.00-0.120) ng/mL NT-Pro-B Natriuret Pep (0-900) pg/ml Total Protein 4.0 L (6.3-8.2) G/DL Albumin 1.9 L (3.5-5.0) g/dL Globulin 2.0 L (2.2-3.9) gm/dL Albumin/Globulin Ratio 0.9 L (1.0-2.1) Arterial Blood Potassium 4.2 (3.6-5.2) mmol/L 07/13/18 07/12/18 07/12/18 Range/Units 04:22 23:25 23:17 WBC (4.8-10.8) K/uL RBC (3.80-5.20) Mil/uL Hgb (12.0-16.0) g/dL Hct (34.0-47.0) % MCV (81.0-99.0) fl MCH (27.0-31.0) pg MCHC (33.0-37.0) g/dL RDW (11.5-14.5) % Plt Count (130-400) K/uL MPV (7.2-11.7) fl Neut % (Auto) (50.0-75.0) % Lymph % (Auto) (20.0-40.0) % Vernon % (Auto) (0.0-10.0) % Eos % (Auto) (0.0-4.0) % Baso % (Auto) (0.0-2.0) % Neut # (Auto) (1.8-7.0) K/uL Lymph # (Auto) (1.0-4.3) K/uL Vernon # (Auto) (0.0-0.8) K/uL Eos # (Auto) (0.0-0.7) K/uL Baso # (Auto) (0.0-0.2) K/uL Neutrophils % (Manual) (42-75) % Band Neutrophils % (0-2) % Lymphocytes % (Manual) (20-50) % Reactive Lymphs % (0-0) % Monocytes % (Manual) (0-10) % Platelet Estimate (NORMAL) Hypochromasia (manual) Anisocytosis (manual) Acanthocytes (Spur) PT 16.5 H (9.8-13.1) Seconds INR 1.5 APTT 28.3 (25.6-37.1) Seconds pCO2 32 L 34 L (35-45) mm/Hg pO2 82 104 H (80-100) mm/Hg HCO3 20.8 L 24.1 (21-28) mmol/L ABG pH 7.38 7.43 (7.35-7.45) ABG Total CO2 19.9 L 23.6 (22-28) mmol/L ABG O2 Saturation 98.4 H 99.9 H (95-98) % ABG O2 Content (15-23) ML/dL ABG Base Excess -5.2 L -1.1 (-2.0-3.0) mmol/L ABG Hemoglobin (11.7-17.4) g/dL ABG Carboxyhemoglobin (0.5-1.5) % POC ABG HHb (Measured) (0.0-5.0) % ABG Methemoglobin (0.0-3.0) % ABG O2 Capacity (16-24) mL/dL Must[place]ha Test Yes Yes ABG Potassium 4.3 3.2 L (3.6-5.2) mmol/L A-a O2 Difference 235.0 210.0 mm/Hg Hgb O2 Saturation (95.0-98.0) % Glucose 96 100 (65-105) mg/dL Lactate 2.3 H 2.4 H (0.7-2.1) mmol/L Vent Mode Simv Simv Mechanical Rate 10 10 FiO2 50.0 50.0 % Tidal Volume 400 400 PEEP 6 6 Pressure Support 5 5 CPAP Sodium 133.0 133.0 (132-148) mmol/l Potassium (3.6-5.0) MMOL/L Chloride 109.0 H 108.0 H (98-107) mmol/L Carbon Dioxide (22-30) mmol/L Anion Gap (10-20) BUN (7-17) mg/dl Creatinine (0.7-1.2) mg/dl Est GFR ( Amer) Est GFR (Non-Af Amer) Random Glucose (65-105) mg/dL Calcium (8.4-10.2) mg/dL Phosphorus (2.5-4.5) mg/dl Magnesium (1.6-2.3) MG/DL Total Bilirubin (0.2-1.3) mg/dl AST (14-36) U/L ALT (9-52) U/L Alkaline Phosphatase (38-126) U/L Troponin I (0.00-0.120) ng/mL NT-Pro-B Natriuret Pep (0-900) pg/ml Total Protein (6.3-8.2) G/DL Albumin (3.5-5.0) g/dL Globulin (2.2-3.9) gm/dL Albumin/Globulin Ratio (1.0-2.1) Arterial Blood Potassium 4.3 3.2 L (3.6-5.2) mmol/L 07/12/18 07/12/18 07/12/18 Range/Units 23:17 23:17 18:00 WBC 2.9 L D (4.8-10.8) K/uL RBC 4.52 (3.80-5.20) Mil/uL Hgb 13.2 (12.0-16.0) g/dL Hct 40.7 (34.0-47.0) % MCV 90.0 (81.0-99.0) fl MCH 29.3 (27.0-31.0) pg MCHC 32.5 L (33.0-37.0) g/dL RDW 13.8 (11.5-14.5) % Plt Count 162 (130-400) K/uL MPV 8.3 (7.2-11.7) fl Neut % (Auto) 90.9 H (50.0-75.0) % Lymph % (Auto) 6.5 L (20.0-40.0) % Vernon % (Auto) 1.8 (0.0-10.0) % Eos % (Auto) 0.8 (0.0-4.0) % Baso % (Auto) 0.0 (0.0-2.0) % Neut # (Auto) 2.6 (1.8-7.0) K/uL Lymph # (Auto) 0.2 L (1.0-4.3) K/uL Vernon # (Auto) 0.1 (0.0-0.8) K/uL Eos # (Auto) 0.0 (0.0-0.7) K/uL Baso # (Auto) 0.0 (0.0-0.2) K/uL Neutrophils % (Manual) 76 H (42-75) % Band Neutrophils % 6 H (0-2) % Lymphocytes % (Manual) 7 L (20-50) % Reactive Lymphs % 3 H (0-0) % Monocytes % (Manual) 8 (0-10) % Platelet Estimate Normal (NORMAL) Hypochromasia (manual) Slight Anisocytosis (manual) Slight Acanthocytes (Spur) Moderate PT (9.8-13.1) Seconds INR APTT (25.6-37.1) Seconds pCO2 (35-45) mm/Hg pO2 (80-100) mm/Hg HCO3 (21-28) mmol/L ABG pH (7.35-7.45) ABG Total CO2 (22-28) mmol/L ABG O2 Saturation (95-98) % ABG O2 Content (15-23) ML/dL ABG Base Excess (-2.0-3.0) mmol/L ABG Hemoglobin (11.7-17.4) g/dL ABG Carboxyhemoglobin (0.5-1.5) % POC ABG HHb (Measured) (0.0-5.0) % ABG Methemoglobin (0.0-3.0) % ABG O2 Capacity (16-24) mL/dL [place]ha Test ABG Potassium (3.6-5.2) mmol/L A-a O2 Difference mm/Hg Hgb O2 Saturation (95.0-98.0) % Glucose (65-105) mg/dL Lactate (0.7-2.1) mmol/L Vent Mode Mechanical Rate FiO2 % Tidal Volume PEEP Pressure Support CPAP Sodium 137 (132-148) mmol/l Potassium 3.2 L (3.6-5.0) MMOL/L Chloride 106 (98-107) mmol/L Carbon Dioxide 22 (22-30) mmol/L Anion Gap 12 (10-20) BUN 25 H (7-17) mg/dl Creatinine 1.0 (0.7-1.2) mg/dl Est GFR ( Amer) > 60 Est GFR (Non-Af Amer) 53 Random Glucose 92 (65-105) mg/dL Calcium 7.3 L (8.4-10.2) mg/dL Phosphorus 2.7 (2.5-4.5) mg/dl Magnesium 1.2 L (1.6-2.3) MG/DL Total Bilirubin 1.6 H (0.2-1.3) mg/dl AST 28 (14-36) U/L ALT 32 (9-52) U/L Alkaline Phosphatase 45 (38-126) U/L Troponin I 0.3620 H* < 0.0120 (0.00-0.120) ng/mL NT-Pro-B Natriuret Pep 627 (0-900) pg/ml Total Protein 4.0 L (6.3-8.2) G/DL Albumin 1.9 L (3.5-5.0) g/dL Globulin 2.1 L (2.2-3.9) gm/dL Albumin/Globulin Ratio 0.9 L (1.0-2.1) Arterial Blood Potassium (3.6-5.2) mmol/L 07/12/18 07/12/18 07/12/18 Range/Units 17:10 17:10 17:09 WBC 1.1 L* D (4.8-10.8) K/uL RBC 5.03 (3.80-5.20) Mil/uL Hgb 15.0 (12.0-16.0) g/dL Hct 45.2 (34.0-47.0) % MCV 90.0 (81.0-99.0) fl MCH 29.8 (27.0-31.0) pg MCHC 33.1 (33.0-37.0) g/dL RDW 14.3 (11.5-14.5) % Plt Count 163 (130-400) K/uL MPV 8.4 (7.2-11.7) fl Neut % (Auto) 55.1 (50.0-75.0) % Lymph % (Auto) 39.6 (20.0-40.0) % Vernon % (Auto) 1.1 (0.0-10.0) % Eos % (Auto) 4.1 H (0.0-4.0) % Baso % (Auto) 0.1 (0.0-2.0) % Neut # (Auto) 0.6 L (1.8-7.0) K/uL Lymph # (Auto) 0.4 L (1.0-4.3) K/uL Vernon # (Auto) 0.0 (0.0-0.8) K/uL Eos # (Auto) 0.0 (0.0-0.7) K/uL Baso # (Auto) 0.0 (0.0-0.2) K/uL Neutrophils % (Manual) (42-75) % Band Neutrophils % (0-2) % Lymphocytes % (Manual) (20-50) % Reactive Lymphs % (0-0) % Monocytes % (Manual) (0-10) % Platelet Estimate (NORMAL) Hypochromasia (manual) Anisocytosis (manual) Acanthocytes (Spur) PT (9.8-13.1) Seconds INR APTT (25.6-37.1) Seconds pCO2 47 H (35-45) mm/Hg pO2 67 L (80-100) mm/Hg HCO3 22.9 (21-28) mmol/L ABG pH 7.32 L (7.35-7.45) ABG Total CO2 25.6 (22-28) mmol/L ABG O2 Saturation 95.2 (95-98) % ABG O2 Content 20.2 (15-23) ML/dL ABG Base Excess -2.4 L (-2.0-3.0) mmol/L ABG Hemoglobin 15.7 (11.7-17.4) g/dL ABG Carboxyhemoglobin 2.2 H (0.5-1.5) % POC ABG HHb (Measured) 4.6 (0.0-5.0) % ABG Methemoglobin 1.5 (0.0-3.0) % ABG O2 Capacity 21.2 (16-24) mL/dL Mustapha Test Yes ABG Potassium (3.6-5.2) mmol/L A-a O2 Difference 159.0 mm/Hg Hgb O2 Saturation 91.7 L (95.0-98.0) % Glucose (65-105) mg/dL Lactate (0.7-2.1) mmol/L Vent Mode Prvc/ac Mechanical Rate 12 FiO2 40.0 % Tidal Volume 400 PEEP 5 Pressure Support CPAP Sodium 139 (132-148) mmol/l Potassium 2.9 L (3.6-5.0) MMOL/L Chloride 109 H (98-107) mmol/L Carbon Dioxide 21 L (22-30) mmol/L Anion Gap 12 (10-20) BUN 26 H (7-17) mg/dl Creatinine 0.8 (0.7-1.2) mg/dl Est GFR ( Amer) > 60 Est GFR (Non-Af Amer) > 60 Random Glucose 101 (65-105) mg/dL Calcium 7.5 L (8.4-10.2) mg/dL Phosphorus (2.5-4.5) mg/dl Magnesium (1.6-2.3) MG/DL Total Bilirubin 1.0 (0.2-1.3) mg/dl AST 22 (14-36) U/L ALT 27 (9-52) U/L Alkaline Phosphatase 52 (38-126) U/L Troponin I (0.00-0.120) ng/mL NT-Pro-B Natriuret Pep (0-900) pg/ml Total Protein 4.6 L (6.3-8.2) G/DL Albumin 2.3 L D (3.5-5.0) g/dL Globulin 2.3 (2.2-3.9) gm/dL Albumin/Globulin Ratio 1.0 (1.0-2.1) Arterial Blood Potassium (3.6-5.2) mmol/L Laboratory Results - last 24 hr 07/12/18 07/12/18 07/12/18 17:09 17:10 17:10 WBC 1.1 L* D RBC 5.03 Hgb 15.0 Hct 45.2 MCV 90.0 MCH 29.8 MCHC 33.1 RDW 14.3 Plt Count 163 MPV 8.4 Neut % (Auto) 55.1 Lymph % (Auto) 39.6 Vernon % (Auto) 1.1 Eos % (Auto) 4.1 H Baso % (Auto) 0.1 Neut # (Auto) 0.6 L Lymph # (Auto) 0.4 L Vernon # (Auto) 0.0 Eos # (Auto) 0.0 Baso # (Auto) 0.0 Neutrophils % (Manual) Band Neutrophils % Lymphocytes % (Manual) Reactive Lymphs % Monocytes % (Manual) Platelet Estimate Hypochromasia (manual) Anisocytosis (manual) Acanthocytes (Spur) PT INR APTT pCO2 47 H pO2 67 L HCO3 22.9 ABG pH 7.32 L ABG Total CO2 25.6 ABG O2 Saturation 95.2 ABG O2 Content 20.2 ABG Base Excess -2.4 L ABG Hemoglobin 15.7 ABG Carboxyhemoglobin 2.2 H POC ABG HHb (Measured) 4.6 ABG Methemoglobin 1.5 ABG O2 Capacity 21.2 [place]ha Test Yes ABG Potassium A-a O2 Difference 159.0 Hgb O2 Saturation 91.7 L Glucose Lactate Vent Mode Prvc/ac Mechanical Rate 12 FiO2 40.0 Tidal Volume 400 PEEP 5 Pressure Support CPAP Sodium 139 Potassium 2.9 L Chloride 109 H Carbon Dioxide 21 L Anion Gap 12 BUN 26 H Creatinine 0.8 Est GFR ( Amer) > 60 Est GFR (Non-Af Amer) > 60 Random Glucose 101 Calcium 7.5 L Phosphorus Magnesium Total Bilirubin 1.0 AST 22 ALT 27 Alkaline Phosphatase 52 Troponin I NT-Pro-B Natriuret Pep Total Protein 4.6 L Albumin 2.3 L D Globulin 2.3 Albumin/Globulin Ratio 1.0 Arterial Blood Potassium 07/12/18 07/12/18 07/12/18 18:00 23:17 23:17 WBC 2.9 L D RBC 4.52 Hgb 13.2 Hct 40.7 MCV 90.0 MCH 29.3 MCHC 32.5 L RDW 13.8 Plt Count 162 MPV 8.3 Neut % (Auto) 90.9 H Lymph % (Auto) 6.5 L Vernon % (Auto) 1.8 Eos % (Auto) 0.8 Baso % (Auto) 0.0 Neut # (Auto) 2.6 Lymph # (Auto) 0.2 L Vernon # (Auto) 0.1 Eos # (Auto) 0.0 Baso # (Auto) 0.0 Neutrophils % (Manual) 76 H Band Neutrophils % 6 H Lymphocytes % (Manual) 7 L Reactive Lymphs % 3 H Monocytes % (Manual) 8 Platelet Estimate Normal Hypochromasia (manual) Slight Anisocytosis (manual) Slight Acanthocytes (Spur) Moderate PT INR APTT pCO2 pO2 HCO3 ABG pH ABG Total CO2 ABG O2 Saturation ABG O2 Content ABG Base Excess ABG Hemoglobin ABG Carboxyhemoglobin POC ABG HHb (Measured) ABG Methemoglobin ABG O2 Capacity Mustapha Test ABG Potassium A-a O2 Difference Hgb O2 Saturation Glucose Lactate Vent Mode Mechanical Rate FiO2 Tidal Volume PEEP Pressure Support CPAP Sodium 137 Potassium 3.2 L Chloride 106 Carbon Dioxide 22 Anion Gap 12 BUN 25 H Creatinine 1.0 Est GFR ( Amer) > 60 Est GFR (Non-Af Amer) 53 Random Glucose 92 Calcium 7.3 L Phosphorus 2.7 Magnesium 1.2 L Total Bilirubin 1.6 H AST 28 ALT 32 Alkaline Phosphatase 45 Troponin I < 0.0120 0.3620 H* NT-Pro-B Natriuret Pep 627 Total Protein 4.0 L Albumin 1.9 L Globulin 2.1 L Albumin/Globulin Ratio 0.9 L Arterial Blood Potassium 07/12/18 07/12/18 07/13/18 23:17 23:25 04:22 WBC RBC Hgb Hct MCV MCH MCHC RDW Plt Count MPV Neut % (Auto) Lymph % (Auto) Vernon % (Auto) Eos % (Auto) Baso % (Auto) Neut # (Auto) Lymph # (Auto) Vernon # (Auto) Eos # (Auto) Baso # (Auto) Neutrophils % (Manual) Band Neutrophils % Lymphocytes % (Manual) Reactive Lymphs % Monocytes % (Manual) Platelet Estimate Hypochromasia (manual) Anisocytosis (manual) Acanthocytes (Spur) PT 16.5 H INR 1.5 APTT 28.3 pCO2 34 L 32 L pO2 104 H 82 HCO3 24.1 20.8 L ABG pH 7.43 7.38 ABG Total CO2 23.6 19.9 L ABG O2 Saturation 99.9 H 98.4 H ABG O2 Content ABG Base Excess -1.1 -5.2 L ABG Hemoglobin ABG Carboxyhemoglobin POC ABG HHb (Measured) ABG Methemoglobin ABG O2 Capacity Mustapha Test Yes Yes ABG Potassium 3.2 L 4.3 A-a O2 Difference 210.0 235.0 Hgb O2 Saturation Glucose 100 96 Lactate 2.4 H 2.3 H Vent Mode Simv Simv Mechanical Rate 10 10 FiO2 50.0 50.0 Tidal Volume 400 400 PEEP 6 6 Pressure Support 5 5 CPAP Sodium 133.0 133.0 Potassium Chloride 108.0 H 109.0 H Carbon Dioxide Anion Gap BUN Creatinine Est GFR ( Amer) Est GFR (Non-Af Amer) Random Glucose Calcium Phosphorus Magnesium Total Bilirubin AST ALT Alkaline Phosphatase Troponin I NT-Pro-B Natriuret Pep Total Protein Albumin Globulin Albumin/Globulin Ratio Arterial Blood Potassium 3.2 L 4.3 07/13/18 07/13/18 07/13/18 04:30 04:30 09:00 WBC 8.8 D RBC 4.40 Hgb 13.0 Hct 40.1 MCV 91.2 MCH 29.7 MCHC 32.5 L RDW 14.1 Plt Count 171 MPV Neut % (Auto) Lymph % (Auto) Vernon % (Auto) Eos % (Auto) Baso % (Auto) Neut # (Auto) Lymph # (Auto) Vernon # (Auto) Eos # (Auto) Baso # (Auto) Neutrophils % (Manual) Band Neutrophils % Lymphocytes % (Manual) Reactive Lymphs % Monocytes % (Manual) Platelet Estimate Hypochromasia (manual) Anisocytosis (manual) Acanthocytes (Spur) PT INR APTT pCO2 33 L pO2 86 HCO3 21.1 ABG pH 7.38 ABG Total CO2 20.5 L ABG O2 Saturation 99.0 H ABG O2 Content ABG Base Excess -4.8 L ABG Hemoglobin ABG Carboxyhemoglobin POC ABG HHb (Measured) ABG Methemoglobin ABG O2 Capacity Must[place]ha Test Yes ABG Potassium 4.2 A-a O2 Difference 229.0 Hgb O2 Saturation Glucose 94 Lactate 2.8 H Vent Mode Cpap Mechanical Rate FiO2 50.0 Tidal Volume PEEP Pressure Support 10 CPAP 5 Sodium 136 133.0 Potassium 4.4 Chloride 107 108.0 H Carbon Dioxide 20 L Anion Gap 13 BUN 25 H Creatinine 1.3 H Est GFR ( Amer) 47 Est GFR (Non-Af Amer) 39 Random Glucose 92 Calcium 7.5 L Phosphorus 3.8 Magnesium 2.5 H Total Bilirubin 0.9 AST 26 ALT 29 Alkaline Phosphatase 46 Troponin I 0.2970 H* NT-Pro-B Natriuret Pep Total Protein 4.0 L Albumin 1.9 L Globulin 2.0 L Albumin/Globulin Ratio 0.9 L Arterial Blood Potassium 4.2 Radiology Impressions: Radiology Impressions Chest X-Ray 07/12/18 17:02 IMPRESSION: Mild increase in subsegmental atelectasis. Status post intubation. Left lower lung field subsegmental atelectasis and left pleural effusion. Increased distention of the gastric air bubble underlying the left hemidiaphragm which is mildly even treated. Chest X-Ray 07/12/18 18:38 IMPRESSION: Status post right triple-lumen catheter insertion with its tip noted overlying the right atrium. Lucency and curvilinear edge overlying the right upper lobe. This may reflect skinfold. Chest X-Ray 07/13/18 04:33 IMPRESSION: There may be some mild subtle increase in subsegmental atelectasis at the left lung base. Endotracheal tube 15 millimeters above the [place]. Chest X-Ray 07/13/18 07:58 IMPRESSION: Mild increase in opacification suggesting either related to increased congestion or increased patchy infiltrates. EKG/Cardiology Studies: Cardiology / EKG Studies 07/13/18 EKG [ELECTROCARDIOGRAM] Stat Comment: Mode Of Transportation: PORTABLE Reason For Exam: elevated trops post op Fingerstick Blood Sugar Results: 101 Critical Care Progress Note - Ventilator Checklist Head of Bed 30 Degrees: Yes Daily Sedation Vacation: Yes Daily Assessment of Readiness to Wean: Yes Daily Spontaneous Breathing Trial: Yes PUD Prophalyxis: Yes DVT Prophylaxis: Yes Oral Care with Chlorhexidine Gluconate {CHG}: Yes - Nutrition Nutrition: Nutrition Category Date Time Status NPO Diet [DIET] Diets 07/10/18 Dinner Active Assessment/Plan (1) Small bowel obstruction Assessment and plan: 87yo F. PMHx HTN, Hyperlipidemia, GERD, insomnia, dementia, diverticulitis s/p hemicolectomy s/p colostomy reversal, ventral hernia repair. p/w SBO, taken to OR for SAILAJA, c/b 2 enterotomies. Admitted to ICU for post-op monitoring. Went into SVT in PACU and was reintubated. Neuro: alert, sedation stopped. Ketorolac prn. Pulm: post-op respiratory failure on PRVC. left pleural effusion from fluid overload. CV: septic shock on levophed and vasopressin, titrating down. Afib, giving amiodarone bolus, if still not controlled will do 24h loading dose. will start full dose a/c tomorrow, >24 hours post-op. [id number] >2 Hem: no acute issues Renal: will monitor urine output, LR@75, albumin drip. Endo: no acute issues GI: NPO. Should consider starting trickle feeds tomorrow, will discuss with surgery. ID: sepsis from recent SBO, s/p SAILAJA with enterotomies and fecal contamination of abdomen. continue Meropenem and Flagyl. DVT proph - lovenox GI proph - protonix huang for strict I/O's during acute illness Code status - full code Critical Care time spent 35 minutes Multi-disciplinary rounds were performed with house staff, nursing, speech therapy, respiratory therapy, pharmacy and nutrition with integrated input from the primary team/attending and other consulting services. The documented time is cumulative and includes review of patient data/exams/labs/chart review and examination of the patient on rounds and throughout the day; time is exclusive of any procedures or teaching time. Current Visit: Yes Status: Acute
[2018-07-13] MEDS ORDERED: Amiodarone 150mg/3 ml vial ONE (15:10)
[2018-07-13] MEDS: Enoxaparin 30 mg Syringe SC SCH (15:18)
[2018-07-13] MEDS: Fluconazole IV 100mg/50 ml NS 50 ML IVPB SCH (15:18)
[2018-07-13] MEDS ORDERED: Amiodarone 150 mg/D5W 100 ml 150 MG/100 ML BAG IVPB ONE (15:30)
[2018-07-13] MEDS ORDERED: Amiodarone 150 MG in Sodium Chloride 0.9% 100 ML IVPB ONE (15:30)
--- NOTE | 2018-07-13 18:22 | CARD ---
APPROVED REPORT Date of service: 07/13/2018 EXAM: Two-dimensional and M-mode echocardiogram with Doppler and color Doppler. INDICATION LV Function:SystolicDiastolic 2D DIMENSIONS IVSd1.37 (0.7-1.1cm)LVDd2.61 (3.9-5.9cm) LVOT Diameter1.76 (1.8-2.4cm)PWd1.16 (0.7-1.1cm) IVSs1.69 (0.8-1.2cm)LVDs1.80 (2.5-4.0cm) FS (%) 31.1 %PWs1.39 (0.8-1.2cm) M-Mode DIMENSIONS Left Atrium (MM)2.32 (2.5-4.0cm)IVSd0.88 (0.7-1.1cm) Aortic Root2.80 (2.2-3.7cm)LVDd3.39 (4.0-5.6cm) Aortic Cusp Exc.1.63 (1.5-2.0cm)PWd0.81 (0.7-1.1cm) IVSs1.48 cmFS (%) 40 % LVDs2.03 (2.0-3.8cm)PWs1.08 cm Aortic Valve AoV Peak Bhgsrqey589.5cm/sAoV VTI27.4cmAO Peak GR.10mmHg LVOT Peak Bdswuiki996.9cm/sLVOT VTI15.28cmAO Mean GR.5mmHg NEEMA (VMAX)1.25ga9EOC (VTI)0.85cm2 Mitral Valve MV E Fnpmzmps04.7cm/sMV DECEL [id number] A Alwnrors27.8cm/s MV DFK50nlZ/A ratio0.8MVA (PHT)3.77cm2 TDI E/Lateral E'0.0E/Medial E'0.0 Tricuspid Valve TR Peak Opjwdgqx984tw/sRAP OVSGZECW70cfCbQO Peak Gr.29mmHg [id number] LEFT VENTRICLE The left ventricle is normal size. There is mild concentric left ventricular hypertrophy. The left ventricular systolic function is normal. The estimated ejection fraction is 55-60% No regional wall motion abnormalities noted.. Transmitral Doppler flow pattern is Grade I-abnormal relaxation pattern. No left ventricle thrombus noted on this study. There is no ventricular septal defect visualized. There is no left ventricular aneurysm. There is no mass noted in the left ventricle. RIGHT VENTRICLE The right ventricle is normal size. There is normal right ventricular wall thickness. The right ventricular systolic function is normal. ATRIA The left atrium size is normal. The right atrium size is normal. The interatrial septum is intact with no evidence for an atrial septal defect. AORTIC VALVE The aortic valve is normal in structure. Mild aortic regurgitation is present. There is no aortic valvular stenosis. There is no aortic valvular vegetation. MITRAL VALVE The mitral valve is normal in structure. There is no evidence of mitral valve prolapse. There is no mitral valve stenosis. There is trace mitral valve regurgitation noted. TRICUSPID VALVE The tricuspid valve is normal in structure. There is mild to moderate tricuspid valve regurgitation noted. RVSP is calculated at 45 mm Hg. There is no tricuspid valve prolapse or vegetation. There is no tricuspid valve stenosis. PULMONIC VALVE The pulmonary valve is normal in structure. There is no pulmonic valvular regurgitation. There is no pulmonic valvular stenosis. GREAT VESSELS The aortic root is normal in size. The ascending aorta is normal in size. The pulmonary artery is normal. The IVC is dilated in size and collapses <50% with inspiration. PERICARDIAL EFFUSION There is no pericardial effusion. There is no pleural effusion. <Conclusion> There is mild concentric left ventricular hypertrophy. The estimated ejection fraction is 55-60% Transmitral Doppler flow pattern is Grade I-abnormal relaxation pattern. The left atrium size is normal. Mild aortic regurgitation is present. There is trace mitral valve regurgitation noted. There is mild to moderate tricuspid valve regurgitation noted. RVSP is calculated at 45 mm Hg. The IVC is dilated in size and collapses <50% with inspiration.
--- NOTE | 2018-07-13 19:12 | CP.PCM.CON ---
History of Present Illness - History of Present Illness History of Present Illness: 87 year old female with a hsitory of GERD, HTN, HL, dementia, multiple abdominal surgeries, presenting with bowel obstruction s/p exploratory laparotomy, lysis of adhesions, enterotomies with washout, SVT, respiratroy failure, with anemia and leukopenia. The patient is currently intubated and I am unable to obtain a history from the patient. Review of her medical records shows she was admitted with an elevated WBC which nadired at 1.1 but has now normalized. Her hgb and plt remain normal. Past medical, surgical, family, social history cannot be obtained from the patient. Allergies: Per documentation acetaminophen, codeine, oxycodone Review of systems cannot be obtained from the patient. Past Patient History - Past Medical History & Family History Past Medical History?: Yes - Past Social History Alcohol: None Drugs: Denies Home Situation {Lives}: Alone - CARDIAC Hx Hypercholesterolemia: Yes Hx Hypertension: Yes - MUSCULOSKELETAL/RHEUMATOLOGICAL Hx Falls: No - GASTROINTESTINAL Other/Comment: hx abdominal surgeries - PSYCHIATRIC Hx Substance Use: No - SURGICAL HISTORY Hx Cholecystectomy: Yes Hx Coronary Stent: (pt denies) - ANESTHESIA Hx Anesthesia: Yes Meds Allergies/Adverse Reactions: Allergies Allergy/AdvReac Type Severity Reaction Status Date / Time acetaminophen [From Percocet] Allergy RASH Verified 07/10/18 13:08 codeine Allergy RASH Verified 07/10/18 13:08 oxycodone [From Percocet] Allergy RASH Verified 07/10/18 13:08 - Medications Medications: Current Medications Donepezil HCl (Aricept) 10 mg NG HS [facility] Last Admin: 07/12/18 23:07 Dose: 10 mg Enoxaparin Sodium (Lovenox) 30 mg SC DAILY [facility]; Protocol Last Admin: 07/13/18 15:18 Dose: 30 mg Meropenem 1 gm/ Sodium (Chloride) 100 mls @ 100 mls/hr IVPB Q8 [facility]; Protocol Last Admin: 07/13/18 16:14 Dose: 100 mls/hr Metronidazole (Flagyl 500mg/100ml Ns) 100 mls @ 100 mls/hr IVPB Q8 [facility]; Protocol Last Admin: 07/13/18 16:13 Dose: 100 mls/hr Vasopressin 100 units/ Sodium (Chloride) 105 mls @ 1.89 mls/hr IV .Q24H [facility]; Protocol Last Admin: 07/13/18 11:51 Dose: 0.02 units/min, 1.26 mls/hr Norepinephrine Bitartrate 16 (mg/ Dextrose) 266 mls @ 9.98 mls/hr IV .Q24H ONE; Protocol Stop: 07/13/18 21:48 Last Titration: 07/13/18 16:19 Dose: 10 mcg/min, 9.98 mls/hr Lactated Ringer's (Lactated Ringer's) 1,000 mls @ 75 mls/hr IV .[id number] [facility] Last Admin: 07/13/18 16:23 Dose: 75 mls/hr Fluconazole (Diflucan Iv 100 Mg/50 Ml Ns) 50 mls @ 50 mls/hr IVPB DAILY [facility]; Protocol Last Admin: 07/13/18 15:18 Dose: 50 mls/hr Vancomycin HCl 750 mg/ Sodium (Chloride) 250 mls @ 166.667 mls/hr IVPB Q12 [facility]; Protocol Last Admin: 07/13/18 14:00 Dose: 166.667 mls/hr Ketorolac Tromethamine (Toradol) 15 mg IVP Q6 PRN PRN Reason: Pain, moderate (4-7) Last Admin: 07/13/18 14:23 Dose: 15 mg Ketorolac Tromethamine (Toradol) 30 mg IVP Q6 PRN PRN Reason: Pain, severe (8-10) Last Admin: 07/11/18 21:17 Dose: 30 mg Mirtazapine (Remeron) 30 mg PO HS [facility] Last Admin: 07/11/18 21:07 Dose: 30 mg Ondansetron HCl (Zofran Inj) 4 mg IVP Q6 PRN PRN Reason: Nausea/Vomiting Last Admin: 07/12/18 10:40 Dose: 4 mg Pantoprazole Sodium (Protonix Inj) 40 mg IVP DAILY [facility] Last Admin: 07/13/18 09:19 Dose: 40 mg Pravastatin Sodium (Pravachol) 20 mg PO HS [facility] Last Admin: 07/11/18 21:07 Dose: 20 mg Physical Exam - Head Exam Head Exam: ATRAUMATIC - Eye Exam Eye Exam: Normal appearance - ENT Exam ENT Exam: Mucous Membranes Dry - Respiratory Exam Respiratory Exam: NORMAL BREATHING PATTERN - Cardiovascular Exam Cardiovascular Exam: +S1, +S2 - GI/Abdominal Exam GI & Abdominal Exam: Normal Bowel Sounds Results - Vital Signs Recent Vital Signs: Last Vital Signs Temp 100.4 F H 07/13/18 18:00 Pulse 88 07/13/18 18:00 Resp 32 H 07/13/18 18:00 BP 93/48 L 07/13/18 18:00 Pulse Ox 94 L 07/13/18 18:00 - Labs Result Diagrams: 07/13/18 21:10 07/13/18 04:30 Labs: Laboratory Results - last 24 hr 07/12/18 07/12/18 07/12/18 18:00 23:17 23:17 WBC 2.9 L D RBC 4.52 Hgb 13.2 Hct 40.7 MCV 90.0 MCH 29.3 MCHC 32.5 L RDW 13.8 Plt Count 162 MPV 8.3 Neut % (Auto) 90.9 H Lymph % (Auto) 6.5 L [place] % (Auto) 1.8 Eos % (Auto) 0.8 Baso % (Auto) 0.0 Neut # (Auto) 2.6 Lymph # (Auto) 0.2 L [place] # (Auto) 0.1 Eos # (Auto) 0.0 Baso # (Auto) 0.0 Neutrophils % (Manual) 76 H Band Neutrophils % 6 H Lymphocytes % (Manual) 7 L Reactive Lymphs % 3 H Monocytes % (Manual) 8 Platelet Estimate Normal Hypochromasia (manual) Slight Anisocytosis (manual) Slight Acanthocytes (Spur) Moderate PT INR APTT pCO2 pO2 HCO3 ABG pH ABG Total CO2 ABG O2 Saturation ABG Base Excess [place] Test ABG Potassium A-a O2 Difference Glucose Lactate Vent Mode Mechanical Rate FiO2 Tidal Volume PEEP Pressure Support CPAP Sodium 137 Potassium 3.2 L Chloride 106 Carbon Dioxide 22 Anion Gap 12 BUN 25 H Creatinine 1.0 Est GFR ( Amer) > 60 Est GFR (Non-Af Amer) 53 Random Glucose 92 Calcium 7.3 L Phosphorus 2.7 Magnesium 1.2 L Total Bilirubin 1.6 H AST 28 ALT 32 Alkaline Phosphatase 45 Troponin I < 0.0120 0.3620 H* NT-Pro-B Natriuret Pep 627 Total Protein 4.0 L Albumin 1.9 L Globulin 2.1 L Albumin/Globulin Ratio 0.9 L Arterial Blood Potassium 03/07/12/18 07/13/18 23:17 23:25 04:22 WBC RBC Hgb Hct MCV MCH MCHC RDW Plt Count MPV Neut % (Auto) Lymph % (Auto) [place] % (Auto) Eos % (Auto) Baso % (Auto) Neut # (Auto) Lymph # (Auto) [place] # (Auto) Eos # (Auto) Baso # (Auto) Neutrophils % (Manual) Band Neutrophils % Lymphocytes % (Manual) Reactive Lymphs % Monocytes % (Manual) Platelet Estimate Hypochromasia (manual) Anisocytosis (manual) Acanthocytes (Spur) PT 16.5 H INR 1.5 APTT 28.3 pCO2 34 L 32 L pO2 104 H 82 HCO3 24.1 20.8 L ABG pH 7.43 7.38 ABG Total CO2 23.6 19.9 L ABG O2 Saturation 99.9 H 98.4 H ABG Base Excess -1.1 -5.2 L [place] Test Yes Yes ABG Potassium 3.2 L 4.3 A-a O2 Difference 210.0 235.0 Glucose 100 96 Lactate 2.4 H 2.3 H Vent Mode Simv Simv Mechanical Rate 10 10 FiO2 50.0 50.0 Tidal Volume 400 400 PEEP 6 6 Pressure Support 5 5 CPAP Sodium 133.0 133.0 Potassium Chloride 108.0 H 109.0 H Carbon Dioxide Anion Gap BUN Creatinine Est GFR ( Amer) Est GFR (Non-Af Amer) Random Glucose Calcium Phosphorus Magnesium Total Bilirubin AST ALT Alkaline Phosphatase Troponin I NT-Pro-B Natriuret Pep Total Protein Albumin Globulin Albumin/Globulin Ratio Arterial Blood Potassium 3.2 L 4.3 07/13/18 07/13/18 07/13/18 04:30 04:30 09:00 WBC 8.8 D RBC 4.40 Hgb 13.0 Hct 40.1 MCV 91.2 MCH 29.7 MCHC 32.5 L RDW 14.1 Plt Count 171 MPV Neut % (Auto) Lymph % (Auto) [place] % (Auto) Eos % (Auto) Baso % (Auto) Neut # (Auto) Lymph # (Auto) [place] # (Auto) Eos # (Auto) Baso # (Auto) Neutrophils % (Manual) Band Neutrophils % Lymphocytes % (Manual) Reactive Lymphs % Monocytes % (Manual) Platelet Estimate Hypochromasia (manual) Anisocytosis (manual) Acanthocytes (Spur) PT INR APTT pCO2 33 L pO2 86 HCO3 21.1 ABG pH 7.38 ABG Total CO2 20.5 L ABG O2 Saturation 99.0 H ABG Base Excess -4.8 L [place] Test Yes ABG Potassium 4.2 A-a O2 Difference 229.0 Glucose 94 Lactate 2.8 H Vent Mode Cpap Mechanical Rate FiO2 50.0 Tidal Volume PEEP Pressure Support 10 CPAP 5 Sodium 136 133.0 Potassium 4.4 Chloride 107 108.0 H Carbon Dioxide 20 L Anion Gap 13 BUN 25 H Creatinine 1.3 H Est GFR ( Amer) 47 Est GFR (Non-Af Amer) 39 Random Glucose 92 Calcium 7.5 L Phosphorus 3.8 Magnesium 2.5 H Total Bilirubin 0.9 AST 26 ALT 29 Alkaline Phosphatase 46 Troponin I 0.2970 H* NT-Pro-B Natriuret Pep Total Protein 4.0 L Albumin 1.9 L Globulin 2.0 L Albumin/Globulin Ratio 0.9 L Arterial Blood Potassium 4.2 Assessment & Plan (1) Leukopenia Assessment and Plan: with neutropenia transient resolved likely related to acute illness Status: Acute (2) Coagulopathy Assessment and Plan: mild likely nutritional Thank you for this interesting consult. Status: Acute
[2018-07-13 21:17] LABS: ABG ALLEN TEST YES; ARTERIAL BLOOD GAS HCO3 21.3 mmol/L (21-28); ARTERIAL BLOOD GAS O2 SAT 99.6 % (95-98); ARTERIAL BLOOD GAS PCO2 32 mm/Hg (35-45); ARTERIAL BLOOD GAS PH 7.39 (7.35-7.45); ARTERIAL BLOOD GAS PO2 92 mm/Hg (80-100); ARTERIAL BLOOD GAS TCO2 20.4 mmol/L (22-28)
[2018-07-13 21:29] LABS: BASO % 0.1 % (0.0-2.0); EOS # 0.3 K/uL (0.0-0.7); EOS % 2.2 % (0.0-4.0); LYMPH # 0.6 K/uL (1.0-4.3); LYMPH % 3.8 % (20.0-40.0); MEAN CELL VOLUME 90.6 fl (81.0-99.0); MEAN CORPUSCULAR HEMOGLOBIN 29.6 pg (27.0-31.0); MEAN CORPUSCULAR HGB CONC 32.7 g/dL (33.0-37.0); MONO # 0.7 K/uL (0.0-0.8); MONO % 4.6 % (0.0-10.0); NEUT # 14.3 K/uL (1.8-7.0); NEUT % 89.3 % (50.0-75.0); RBC 4.07 Mil/uL (3.80-5.20); RED CELL DISTRIBUTION WIDTH 14.4 % (11.5-14.5)
[2018-07-13 21:56] LABS: ALBUMIN 2.2 g/dL (3.5-5.0); CALCIUM 7.9 mg/dL (8.4-10.2)
[2018-07-14] MEDS: metroNIDAZOLE 500mg/100ml NS 100 ML IVPB SCH ×3 (00:29→16:17)
[2018-07-14] MEDS: Meropenem 1 GM in Sodium Chloride 0.9% 100 ML IVPB SCH ×3 (00:29→17:09)
[2018-07-14 05:35] LABS: ABG ALLEN TEST YES; ARTERIAL BLOOD GAS HCO3 22.1 mmol/L (21-28); ARTERIAL BLOOD GAS HEMOGLOBIN 12.9 g/dL (11.7-17.4); ARTERIAL BLOOD GAS O2 CAPACITY 17.5 mL/dL (16-24); ARTERIAL BLOOD GAS O2 CONTENT 17.5 ML/dL (15-23); ARTERIAL BLOOD GAS PCO2 33 mm/Hg (35-45); ARTERIAL BLOOD GAS PO2 95 mm/Hg (80-100); ARTERIAL BLOOD GAS TCO2 21.4 mmol/L (22-28)
[2018-07-14 06:39] LABS: ABG ALLEN TEST YES; ARTERIAL BLOOD GAS HCO3 21.9 mmol/L (21-28); ARTERIAL BLOOD GAS O2 SAT 99.6 % (95-98); ARTERIAL BLOOD GAS PCO2 30 mm/Hg (35-45); ARTERIAL BLOOD GAS PH 7.42 (7.35-7.45); ARTERIAL BLOOD GAS PO2 110 mm/Hg (80-100); ARTERIAL BLOOD GAS TCO2 20.4 mmol/L (22-28)
[2018-07-14 06:41] LABS: HEMOGLOBIN 12.1 g/dL (12.0-16.0); MEAN CELL VOLUME 90.9 fl (81.0-99.0); MEAN CORPUSCULAR HEMOGLOBIN 29.6 pg (27.0-31.0); MEAN CORPUSCULAR HGB CONC 32.6 g/dL (33.0-37.0); RBC 4.07 Mil/uL (3.80-5.20); RED CELL DISTRIBUTION WIDTH 14.5 % (11.5-14.5); WHITE BLOOD COUNT 17.2 K/uL (4.8-10.8)
[2018-07-14 07:00] LABS: ALB/GLOB RATIO 1.1 (1.0-2.1); ALBUMIN 2.3 g/dL (3.5-5.0); ALT/SGPT 28 U/L (9-52); AST/SGOT 18 U/L (14-36); BLOOD UREA NITROGEN 24 mg/dl (7-17); GFR NON-AFRICAN AMERICAN 53
[2018-07-14] MEDS ORDERED: Iodoform 1/4inx15ft BOT EXT ONE (07:12)
[2018-07-14] MEDS: Enoxaparin 30 mg Syringe SC SCH (08:11)
--- NOTE | 2018-07-14 09:49 | CP.PCM.PN ---
<Tremayne Candelaria - Last Filed: 07/14/18 09:55> Subjective - Date & Time of Evaluation Date of Evaluation: 07/14/18 Time of Evaluation: 09:55 - Subjective Subjective: General Surgery Note for Dr. Mendez Patient seen and examined at bedside. She is s/p exploratory laparotomy, lysis of adhesion, and repair of enterotomy x 2 for SBO POD#2. Overnight, patient remained intubated and on levo/vaso. She also developed intermittent delirium. Her vasopressor requirements have been decreasing (levo 5 mcg/vaso 0.02). Tmax 100.9. She had a run of afib yesterday that broke with amiodarone bolus. Urine output has been improving (31 cc/hr). NGT with 200cc/24hrs. GCS 11T. She is tolerating PSV 50%/10/5. Patient is answering questioning with head nods and following commands. CXR showed imptovement in left sided effusion. Patient a dmits to pain still but says its improved. Denies fever/chills, cp, SOB. ROS limited due to intubation. Objective - Vital Signs/Intake and Output Vital Signs (last 24 hours): Temp Pulse Resp BP Pulse Ox 99.1 F 83 23 125/57 L 96 07/14/18 08:00 07/14/18 09:00 07/14/18 09:00 07/14/18 09:00 07/14/18 09:00 Intake and Output: 07/14/18 07/14/18 06:59 18:59 Intake Total 1389 256 Output Total 550 Balance 839 256 - Medications Medications: Current Medications Donepezil HCl (Aricept) 10 mg NG HS [facility] Last Admin: 07/13/18 22:08 Dose: Not Given Enoxaparin Sodium (Lovenox) 30 mg SC DAILY [facility]; Protocol Last Admin: 07/14/18 08:11 Dose: 30 mg Meropenem 1 gm/ Sodium (Chloride) 100 mls @ 100 mls/hr IVPB Q8 [facility]; Protocol Last Admin: 07/14/18 08:55 Dose: 100 mls/hr Metronidazole (Flagyl 500mg/100ml Ns) 100 mls @ 100 mls/hr IVPB Q8 [facility]; Protocol Last Admin: 07/14/18 00:29 Dose: 100 mls/hr Vasopressin 100 units/ Sodium (Chloride) 105 mls @ 1.89 mls/hr IV .Q24H [facility]; Protocol Last Admin: 07/13/18 11:51 Dose: 0.02 units/min, 1.26 mls/hr Lactated Ringer's (Lactated Ringer's) 1,000 mls @ 75 mls/hr IV .[id number] [facility] Last Admin: 07/13/18 22:10 Dose: 75 mls/hr Fluconazole (Diflucan Iv 100 Mg/50 Ml Ns) 50 mls @ 50 mls/hr IVPB DAILY [facility]; Protocol Last Admin: 07/13/18 15:18 Dose: 50 mls/hr Vancomycin HCl 750 mg/ Sodium (Chloride) 250 mls @ 166.667 mls/hr IVPB Q12 [facility]; Protocol Last Admin: 07/13/18 22:06 Dose: 166.667 mls/hr Norepinephrine Bitartrate 16 (mg/ Dextrose) 266 mls @ 9.98 mls/hr IV .Q24H ONE; Protocol Stop: 07/14/18 22:08 Last Titration: 07/14/18 09:26 Dose: 5.01 mcg/min, 5 mls/hr Acetaminophen (Ofirmev) 1,000 mg in 100 mls @ 400 mls/hr IVPB Q8H [facility]; Protocol Stop: 07/15/18 22:31 Last Admin: 07/14/18 05:29 Dose: 400 mls/hr Ketorolac Tromethamine (Toradol) 30 mg IVP Q6 PRN PRN Reason: Pain, severe (8-10) Last Admin: 07/11/18 21:17 Dose: 30 mg Mirtazapine (Remeron) 30 mg PO HS [facility] Last Admin: 07/11/18 21:07 Dose: 30 mg Ondansetron HCl (Zofran Inj) 4 mg IVP Q6 PRN PRN Reason: Nausea/Vomiting Last Admin: 07/12/18 10:40 Dose: 4 mg Pantoprazole Sodium (Protonix Inj) 40 mg IVP DAILY [facility] Last Admin: 07/14/18 08:10 Dose: 40 mg Pravastatin Sodium (Pravachol) 20 mg PO HS [facility] Last Admin: 07/11/18 21:07 Dose: 20 mg - Labs Labs: 07/14/18 06:34 07/14/18 06:34 PT 16.5 Seconds (9.8-13.1) H 07/12/18 23:17 INR 1.5 07/12/18 23:17 APTT 28.3 Seconds (25.6-37.1) 07/12/18 23:17 - Additional Findings Additional findings: - Constitutional Appears: No Acute Distress - Head Exam Head Exam: ATRAUMATIC, NORMOCEPHALIC - Eye Exam Eye Exam: EOMI, Normal appearance Pupil Exam: PERRL - ENT Exam ENT Exam: Mucous Membranes Moist Additional comments: NGT in right nare ET tube in place - Neck Exam Additional comments: RIJ TLC - Respiratory Exam Additional comments: intubated on PSV 50%/10/5 - Cardiovascular Exam Cardiovascular Exam: REGULAR RHYTHM - GI/Abdominal Exam GI & Abdominal Exam: Soft, Tenderness (surgical site), Normal Bowel Sounds. absent: Distended, Firm, Guarding, Rigid, Rebound Additional comments: dressing clean dry and intact - Extremities Exam Extremities Exam: Normal Capillary Refill, Pedal Edema (1+) - Back Exam Back Exam: absent: CVA tenderness (L), CVA tenderness (R) - Neurological Exam Neurological Exam: Alert, Awake Additional comments: GCS11T - Psychiatric Exam Psychiatric exam: Flat Affect - Skin Skin Exam: Dry, Normal Color, Warm Assessment and Plan - Assessment and Plan (Free Text) Assessment: 87 F who presents with septic shock, acute respiratory failure, elevated lactate, s/p exploratory laparotomy, lysis of adhesion, and repair of enterotomy x 2 for SBO POD#2 Plan: Neuro -GCS11T -HOB > 30 -Pain control -Aricept -Remeron Resp -Maintain SaO2 > 92% -PSV 50%/10/5 -Wean from vent as tolerated -Daily CXR CV -Maintain MAP > 65 -Wean vasopressors as tolerated (levo/vaso) -f/u ECHO GI -NPO -NGT trickle feed 10cc/hr, DO NOT ADVANCE -Protonix -Zofran PRN -Strict I's & O's -Maintain Urine output 0.5-1 cc/kg/hr -IVF -Replete electrolytes PRN Endo -Maintain euglycemia 140-180 Heme -Monitor H/H and platelets -Chemical and mechanical DVT ppx ID -ID consult, f/u recommendations -Merrem, Flagyl, Vanco, Fluconazole -Trend WBC <Wilder Bullock - Last Filed: 07/16/18 13:34> Subjective - Subjective Subjective: All medical record entries made by the resident were at my direction. I have reviewed the chart and agree that the record accurately reflects my personal performance of the history, physical exam, medical decision making. I have also personally directed, reviewed, and agree with the resident note Objective - Vital Signs/Intake and Output Vital Signs (last 24 hours): Temp Pulse Resp BP Pulse Ox 97.3 F L 92 H 19 134/66 94 L 07/16/18 12:20 07/16/18 12:20 07/16/18 12:20 07/16/18 12:20 07/16/18 12:20 Intake and Output: 07/16/18 07/16/18 06:59 18:59 Intake Total 925 250 Output Total 2950 400 Balance -2024 -150 - Medications Medications: Current Medications Albuterol/Ipratropium (Duoneb 3 Mg/0.5 Mg (3 Ml) Ud) 3 ml INH RQ6 PRN PRN Reason: Shortness of Breath Last Admin: 07/15/18 21:58 Dose: 3 ml Donepezil HCl (Aricept) 10 mg NG HS [facility] Last Admin: 07/16/18 01:34 Dose: Not Given Enoxaparin Sodium (Lovenox) 30 mg SC DAILY [facility]; Protocol Last Admin: 07/16/18 08:29 Dose: 30 mg Metronidazole (Flagyl 500mg/100ml Ns) 100 mls @ 100 mls/hr IVPB Q8 [facility]; Protocol Last Admin: 07/16/18 08:26 Dose: 100 mls/hr Fluconazole (Diflucan Iv 100 Mg/50 Ml Ns) 50 mls @ 50 mls/hr IVPB DAILY [facility]; Protocol Last Admin: 07/16/18 10:43 Dose: 50 mls/hr Vancomycin HCl 750 mg/ Sodium (Chloride) 250 mls @ 166.667 mls/hr IVPB Q12 [facility]; Protocol Last Admin: 07/16/18 10:44 Dose: Not Given Ketorolac Tromethamine (Toradol) 30 mg IVP Q6 PRN PRN Reason: Pain, severe (8-10) Last Admin: 07/14/18 19:06 Dose: 30 mg Mirtazapine (Remeron) 30 mg PO HS [facility] Last Admin: 07/16/18 01:35 Dose: Not Given Ondansetron HCl (Zofran Inj) 4 mg IVP Q6 PRN PRN Reason: Nausea/Vomiting Last Admin: 07/12/18 10:40 Dose: 4 mg Pantoprazole Sodium (Protonix Inj) 40 mg IVP DAILY [facility] Last Admin: 07/16/18 08:29 Dose: 40 mg Pravastatin Sodium (Pravachol) 20 mg PO HS [facility] Last Admin: 07/16/18 01:35 Dose: Not Given - Labs Labs: 07/16/18 04:20 07/16/18 04:20 PT 16.5 Seconds (9.8-13.1) H 07/12/18 23:17 INR 1.5 07/12/18 23:17 APTT 28.3 Seconds (25.6-37.1) 07/12/18 23:17
--- NOTE | 2018-07-14 10:08 | RAD ---
Date of service: 07/14/2018 PROCEDURE: CHEST RADIOGRAPH, 1 VIEW HISTORY: Intubated COMPARISON: Yesterday FINDINGS: LUNGS: Tubes and lines are unchanged from the prior examination including the triple-lumen catheter extending into the right atrial region. This will require further clinical evaluation. Lung chicas are slightly improved in aeration from the prior study without new infiltrate. PLEURA: No change CARDIOVASCULAR: There is aortic atherosclerotic calcification present. Vasculature is mildly improved. OSSEOUS STRUCTURES: Stable VISUALIZED UPPER ABDOMEN: Normal. OTHER FINDINGS: None. IMPRESSION: Mild improvement in aeration and slight decrease in vascular congestion. Please see right triple lumen catheter placement position noted above.
--- NOTE | 2018-07-14 11:03 | CP.PCM.PN ---
<Jaylene ReddMejia - Last Filed: 07/14/18 17:02> Subjective - Date & Time of Evaluation Date of Evaluation: 07/14/18 Time of Evaluation: 08:00 - Subjective Subjective: Patient is seen and examined at bedside. No acute event overnight. Patient intubated and on levo and vasopressor. Patient was awake and alert while examine. Patient denies any complains at moment. Patient denies fever/chills, chest pain, sob. ROS limited due to intubation Objective - Vital Signs/Intake and Output Vital Signs (last 24 hours): Temp Pulse Resp BP Pulse Ox 99.1 F 90 29 H 104/63 94 L 07/14/18 08:00 07/14/18 11:00 07/14/18 11:00 07/14/18 11:00 07/14/18 10:00 Intake and Output: 07/14/18 07/14/18 06:59 18:59 Intake Total 1389 506 Output Total 550 Balance 839 506 - Medications Medications: Current Medications Donepezil HCl (Aricept) 10 mg NG HS [facility] Last Admin: 07/13/18 22:08 Dose: Not Given Enoxaparin Sodium (Lovenox) 30 mg SC DAILY [facility]; Protocol Last Admin: 07/14/18 08:11 Dose: 30 mg Meropenem 1 gm/ Sodium (Chloride) 100 mls @ 100 mls/hr IVPB Q8 [facility]; Protocol Last Admin: 07/14/18 08:55 Dose: 100 mls/hr Metronidazole (Flagyl 500mg/100ml Ns) 100 mls @ 100 mls/hr IVPB Q8 [facility]; Protocol Last Admin: 07/14/18 09:52 Dose: 100 mls/hr Vasopressin 100 units/ Sodium (Chloride) 105 mls @ 1.89 mls/hr IV .Q24H [facility]; Protocol Last Admin: 07/13/18 11:51 Dose: 0.02 units/min, 1.26 mls/hr Lactated Ringer's (Lactated Ringer's) 1,000 mls @ 75 mls/hr IV .[id number] [facility] Last Admin: 07/13/18 22:10 Dose: 75 mls/hr Fluconazole (Diflucan Iv 100 Mg/50 Ml Ns) 50 mls @ 50 mls/hr IVPB DAILY [facility]; Protocol Last Admin: 07/13/18 15:18 Dose: 50 mls/hr Vancomycin HCl 750 mg/ Sodium (Chloride) 250 mls @ 166.667 mls/hr IVPB Q12 [facility]; Protocol Last Admin: 07/14/18 10:53 Dose: 166.667 mls/hr Norepinephrine Bitartrate 16 (mg/ Dextrose) 266 mls @ 9.98 mls/hr IV .Q24H ONE; Protocol Stop: 07/14/18 22:08 Last Titration: 07/14/18 09:26 Dose: 5.01 mcg/min, 5 mls/hr Acetaminophen (Ofirmev) 1,000 mg in 100 mls @ 400 mls/hr IVPB Q8H [facility]; Protocol Stop: 07/15/18 22:31 Last Admin: 07/14/18 05:29 Dose: 400 mls/hr Ketorolac Tromethamine (Toradol) 30 mg IVP Q6 PRN PRN Reason: Pain, severe (8-10) Last Admin: 07/11/18 21:17 Dose: 30 mg Mirtazapine (Remeron) 30 mg PO HS [facility] Last Admin: 07/11/18 21:07 Dose: 30 mg Ondansetron HCl (Zofran Inj) 4 mg IVP Q6 PRN PRN Reason: Nausea/Vomiting Last Admin: 07/12/18 10:40 Dose: 4 mg Pantoprazole Sodium (Protonix Inj) 40 mg IVP DAILY [facility] Last Admin: 07/14/18 08:10 Dose: 40 mg Pravastatin Sodium (Pravachol) 20 mg PO HS [facility] Last Admin: 07/11/18 21:07 Dose: 20 mg - Labs Labs: 07/14/18 06:34 07/14/18 06:34 PT 16.5 Seconds (9.8-13.1) H 07/12/18 23:17 INR 1.5 07/12/18 23:17 APTT 28.3 Seconds (25.6-37.1) 07/12/18 23:17 - Constitutional Appears: Well, Non-toxic - Head Exam Head Exam: ATRAUMATIC, NORMAL INSPECTION, NORMOCEPHALIC - Eye Exam Eye Exam: EOMI, Normal appearance Pupil Exam: NORMAL ACCOMODATION, PERRL - ENT Exam ENT Exam: Mucous Membranes Moist, Normal Exam - Respiratory Exam Respiratory Exam: Clear to Ausculation Bilateral, NORMAL BREATHING PATTERN Additional comments: Intubation - Cardiovascular Exam Cardiovascular Exam: REGULAR RHYTHM, +S1, +S2 - GI/Abdominal Exam GI & Abdominal Exam: Soft, Normal Bowel Sounds - Neurological Exam Neurological Exam: Alert, Awake - Psychiatric Exam Psychiatric exam: Normal Affect, Normal Mood - Skin Skin Exam: Dry, Intact, Warm Assessment and Plan - Assessment and Plan (Free Text) Assessment: 87 F who presents with septic shock, acute respiratory failure, elevated lactate, s/p exploratory laparotomy, lysis of adhesion, and repair of enterotomy x2 for SBO POD #3 Plan: Small bowel obstruction - s/p ex laparotomy POD 3 - leukocytosis resolved - General surgery, Dr. Mendez on board - NPO - NGT to suction wall with 300ml of fluid - Pain management with toradol - Anti-emetics - ivf: lr AT 100 Leukopenia - resolved - Afebrile - WBC 17.2H - continue meropenem 1g IV q8 and Flagyl as ID recommendation - Hemo/onc are on the case Hiatal hernia - c/w protonix 40 mg IVP Hypertension - resume metoprolol succinated 50 mg ER Hyperlipidemia - resume pravastatin 20 mg po hs GERD - start protonix 40 mg IVP Cognitive impairment - resume aricept Insominia/anxiety - resume remeron and aricept DVT prophylaxis - SCDs for now -Lovenox 40 sc <Maria Victoria Anton - Last Filed: 07/14/18 17:44> Objective - Vital Signs/Intake and Output Vital Signs (last 24 hours): Temp Pulse Resp BP Pulse Ox 99.1 F 87 10 L 123/61 92 L 07/14/18 16:00 07/14/18 17:00 07/14/18 17:00 07/14/18 17:00 07/14/18 17:00 Intake and Output: 07/14/18 07/14/18 06:59 18:59 Intake Total 1389 837 Output Total 550 Balance 839 837 - Medications Medications: Current Medications Donepezil HCl (Aricept) 10 mg NG HS [facility] Last Admin: 07/13/18 22:08 Dose: Not Given Enoxaparin Sodium (Lovenox) 30 mg SC DAILY [facility]; Protocol Last Admin: 07/14/18 08:11 Dose: 30 mg Meropenem 1 gm/ Sodium (Chloride) 100 mls @ 100 mls/hr IVPB Q8 [facility]; Protocol Last Admin: 07/14/18 17:09 Dose: 100 mls/hr Metronidazole (Flagyl 500mg/100ml Ns) 100 mls @ 100 mls/hr IVPB Q8 [facility]; Protocol Last Admin: 07/14/18 16:17 Dose: 100 mls/hr Vasopressin 100 units/ Sodium (Chloride) 105 mls @ 1.89 mls/hr IV .Q24H [facility]; Protocol Last Titration: 07/14/18 13:52 Dose: 0.01 units/min, 0.63 mls/hr Lactated Ringer's (Lactated Ringer's) 1,000 mls @ 75 mls/hr IV .[id number] [facility] Last Admin: 07/14/18 13:49 Dose: 75 mls/hr Fluconazole (Diflucan Iv 100 Mg/50 Ml Ns) 50 mls @ 50 mls/hr IVPB DAILY [facility]; Protocol Last Admin: 07/14/18 13:02 Dose: 50 mls/hr Vancomycin HCl 750 mg/ Sodium (Chloride) 250 mls @ 166.667 mls/hr IVPB Q12 [facility]; Protocol Last Admin: 07/14/18 10:53 Dose: 166.667 mls/hr Norepinephrine Bitartrate 16 (mg/ Dextrose) 266 mls @ 9.98 mls/hr IV .Q24H [facility]; Protocol Stop: 07/14/18 22:08 Last Titration: 07/14/18 09:26 Dose: 5.01 mcg/min, 5 mls/hr Acetaminophen (Ofirmev) 1,000 mg in 100 mls @ 400 mls/hr IVPB Q8H [facility]; Protocol Stop: 07/15/18 22:31 Last Admin: 07/14/18 14:04 Dose: 400 mls/hr Ketorolac Tromethamine (Toradol) 30 mg IVP Q6 PRN PRN Reason: Pain, severe (8-10) Last Admin: 07/11/18 21:17 Dose: 30 mg Mirtazapine (Remeron) 30 mg PO HS [facility] Last Admin: 07/11/18 21:07 Dose: 30 mg Ondansetron HCl (Zofran Inj) 4 mg IVP Q6 PRN PRN Reason: Nausea/Vomiting Last Admin: 07/12/18 10:40 Dose: 4 mg Pantoprazole Sodium (Protonix Inj) 40 mg IVP DAILY [facility] Last Admin: 07/14/18 08:10 Dose: 40 mg Pravastatin Sodium (Pravachol) 20 mg PO HS [facility] Last Admin: 07/11/18 21:07 Dose: 20 mg - Labs Labs: 07/14/18 06:34 07/14/18 06:34 PT 16.5 Seconds (9.8-13.1) H 07/12/18 23:17 INR 1.5 07/12/18 23:17 APTT 28.3 Seconds (25.6-37.1) 07/12/18 23:17 Attending/Attestation - Attestation I have personally seen and examined this patient.: Yes I have fully participated in the care of the patient.: Yes I have reviewed all pertinent clinical information, including history, physical exam and plan: Yes Notes (Text): Correction on Resident's note - Metoprolol NOT restarted Hypotension Respiratory Insufficiency SVT Episode SBO s/p Explor Lap, Adhesiolysis, repair of Enterotomies Pt is intubated on Vent - CPAP mode 10/5/50% On 2 pressors - Levophed and Vasopressin awake, alert, follllows simple commands ID consulted Pt is on IV Meropenem, Vanco, Flagyl and Diflucan NGT in place - no drainage since this am Surgery following pt we will cont to monitor pt in ICU Lovenox for DVT proph
[2018-07-14] MEDS: Fluconazole IV 100mg/50 ml NS 50 ML IVPB SCH (13:02)
--- NOTE | 2018-07-14 13:23 | CP.PCM.PN ---
Subjective - Date & Time of Evaluation Date of Evaluation: 07/14/18 Time of Evaluation: 13:21 - Subjective Subjective: ID Note- patient seen and examined today in ICU. she remains awake and alert and follows commands. she is still on the vent . she is only on one pressor now and being weaned off of that. as per her niece who is at her bedisde pt. passed gas and had small BM as well today. She also has been started on Feeds by the surgical team. Pt. denies any pain and denies any fever or chills. Objective - Vital Signs/Intake and Output Vital Signs (last 24 hours): Temp Pulse Resp BP Pulse Ox 98.6 F 104 H 28 H 108/59 L 95 07/14/18 12:00 07/14/18 12:00 07/14/18 12:00 07/14/18 12:00 07/14/18 12:00 Intake and Output: 07/14/18 07/14/18 06:59 18:59 Intake Total 1389 506 Output Total 550 Balance 839 506 - Medications Medications: Current Medications Donepezil HCl (Aricept) 10 mg NG HS [facility] Last Admin: 07/13/18 22:08 Dose: Not Given Enoxaparin Sodium (Lovenox) 30 mg SC DAILY [facility]; Protocol Last Admin: 07/14/18 08:11 Dose: 30 mg Meropenem 1 gm/ Sodium (Chloride) 100 mls @ 100 mls/hr IVPB Q8 [facility]; Protocol Last Admin: 07/14/18 08:55 Dose: 100 mls/hr Metronidazole (Flagyl 500mg/100ml Ns) 100 mls @ 100 mls/hr IVPB Q8 [facility]; Protocol Last Admin: 07/14/18 09:52 Dose: 100 mls/hr Vasopressin 100 units/ Sodium (Chloride) 105 mls @ 1.89 mls/hr IV .Q24H [facility]; Protocol Last Admin: 07/13/18 11:51 Dose: 0.02 units/min, 1.26 mls/hr Lactated Ringer's (Lactated Ringer's) 1,000 mls @ 75 mls/hr IV .[id number] [facility] Last Admin: 07/13/18 22:10 Dose: 75 mls/hr Fluconazole (Diflucan Iv 100 Mg/50 Ml Ns) 50 mls @ 50 mls/hr IVPB DAILY [facility]; Protocol Last Admin: 07/14/18 13:02 Dose: 50 mls/hr Vancomycin HCl 750 mg/ Sodium (Chloride) 250 mls @ 166.667 mls/hr IVPB Q12 [facility]; Protocol Last Admin: 07/14/18 10:53 Dose: 166.667 mls/hr Norepinephrine Bitartrate 16 (mg/ Dextrose) 266 mls @ 9.98 mls/hr IV .Q24H [facility]; Protocol Stop: 07/14/18 22:08 Last Titration: 07/14/18 09:26 Dose: 5.01 mcg/min, 5 mls/hr Acetaminophen (Ofirmev) 1,000 mg in 100 mls @ 400 mls/hr IVPB Q8H [facility]; Protocol Stop: 07/15/18 22:31 Last Admin: 07/14/18 05:29 Dose: 400 mls/hr Ketorolac Tromethamine (Toradol) 30 mg IVP Q6 PRN PRN Reason: Pain, severe (8-10) Last Admin: 07/11/18 21:17 Dose: 30 mg Mirtazapine (Remeron) 30 mg PO HS [facility] Last Admin: 07/11/18 21:07 Dose: 30 mg Ondansetron HCl (Zofran Inj) 4 mg IVP Q6 PRN PRN Reason: Nausea/Vomiting Last Admin: 07/12/18 10:40 Dose: 4 mg Pantoprazole Sodium (Protonix Inj) 40 mg IVP DAILY [facility] Last Admin: 07/14/18 08:10 Dose: 40 mg Pravastatin Sodium (Pravachol) 20 mg PO HS [facility] Last Admin: 07/11/18 21:07 Dose: 20 mg - Labs Labs: - Additional Findings Additional findings: Constitutional Appears: No Acute Distress Additional comments: intubated but is awake and responsive - Head Exam Head Exam: ATRAUMATIC - Eye Exam Eye Exam: EOMI, PERRL - ENT Exam Additional comments: ET tube in place - Neck Exam Neck exam: Positive for: Full Rom - Respiratory Exam Additional comments: on the vent breath sounds heard b/l - Cardiovascular Exam Cardiovascular Exam: RRR, +S1, +S2 - GI/Abdominal Exam GI & Abdominal Exam: Soft Additional comments: mid lower abdomen surgical site with packing in place and few zeke in place, no erythema soft, NT - Extremities Exam Extremities exam: Positive for: normal inspection - Neurological Exam Neurological exam: Alert, Oriented x 3 Laboratory Results - last 72 hr 07/11/18 07/11/18 07/11/18 05:35 13:10 22:39 WBC 3.4 L RBC 4.61 Hgb 13.9 Hct 40.7 MCV 88.4 D MCH 30.2 MCHC 34.2 RDW 14.1 Plt Count 212 MPV 8.3 Neut % (Auto) 37.8 L Lymph % (Auto) 42.7 H [place] % (Auto) 18.4 H Eos % (Auto) 0.7 Baso % (Auto) 0.4 Neut # (Auto) 1.3 L Lymph # (Auto) 1.4 [place] # (Auto) 0.6 Eos # (Auto) 0.0 Baso # (Auto) 0.0 Neutrophils % (Manual) Band Neutrophils % Lymphocytes % (Manual) Reactive Lymphs % Monocytes % (Manual) Platelet Estimate Hypochromasia (manual) Anisocytosis (manual) Acanthocytes (Spur) PT INR APTT pCO2 pO2 HCO3 ABG pH ABG Total CO2 ABG O2 Saturation ABG O2 Content ABG Base Excess ABG Hemoglobin ABG Carboxyhemoglobin POC ABG HHb (Measured) ABG Methemoglobin ABG O2 Capacity [place] Test ABG Potassium A-a O2 Difference Hgb O2 Saturation Glucose Lactate Vent Mode Mechanical Rate FiO2 Tidal Volume PEEP Pressure Support CPAP Sodium Potassium Chloride Carbon Dioxide Anion Gap BUN Creatinine Est GFR ( Amer) Est GFR (Non-Af Amer) POC Glucose (mg/dL) 84 Random Glucose Calcium Phosphorus Magnesium Total Bilirubin AST ALT Alkaline Phosphatase Troponin I NT-Pro-B Natriuret Pep Total Protein Albumin Globulin Albumin/Globulin Ratio Procalcitonin 0.16 L Cortisol AM Sample Arterial Blood Potassium 07/12/18 07/12/18 07/12/18 04:30 05:50 05:50 WBC 4.4 L RBC 4.57 Hgb 13.7 Hct 41.5 MCV 90.8 D MCH 30.0 MCHC 33.0 RDW 14.2 Plt Count 198 MPV Neut % (Auto) Lymph % (Auto) [place] % (Auto) Eos % (Auto) Baso % (Auto) Neut # (Auto) Lymph # (Auto) [place] # (Auto) Eos # (Auto) Baso # (Auto) Neutrophils % (Manual) Band Neutrophils % Lymphocytes % (Manual) Reactive Lymphs % Monocytes % (Manual) Platelet Estimate Hypochromasia (manual) Anisocytosis (manual) Acanthocytes (Spur) PT INR APTT pCO2 pO2 HCO3 ABG pH ABG Total CO2 ABG O2 Saturation ABG O2 Content ABG Base Excess ABG Hemoglobin ABG Carboxyhemoglobin POC ABG HHb (Measured) ABG Methemoglobin ABG O2 Capacity [place]ha Test ABG Potassium A-a O2 Difference Hgb O2 Saturation Glucose Lactate Vent Mode Mechanical Rate FiO2 Tidal Volume PEEP Pressure Support CPAP Sodium 137 Potassium 3.6 Chloride 101 Carbon Dioxide 28 Anion Gap 12 BUN 30 H Creatinine 0.9 Est GFR ( Amer) > 60 Est GFR (Non-Af Amer) 60 POC Glucose (mg/dL) Random Glucose 100 Calcium 8.9 Phosphorus Magnesium Total Bilirubin 1.0 AST 17 ALT 21 Alkaline Phosphatase 60 Troponin I NT-Pro-B Natriuret Pep Total Protein 5.8 L Albumin 3.2 L Globulin 2.6 Albumin/Globulin Ratio 1.2 Procalcitonin 99.94 H Cortisol AM Sample Arterial Blood Potassium 07/12/18 07/12/18 07/12/18 05:59 11:12 12:28 WBC RBC Hgb Hct MCV MCH MCHC RDW Plt Count MPV Neut % (Auto) Lymph % (Auto) [place] % (Auto) Eos % (Auto) Baso % (Auto) Neut # (Auto) Lymph # (Auto) [place] # (Auto) Eos # (Auto) Baso # (Auto) Neutrophils % (Manual) Band Neutrophils % Lymphocytes % (Manual) Reactive Lymphs % Monocytes % (Manual) Platelet Estimate Hypochromasia (manual) Anisocytosis (manual) Acanthocytes (Spur) PT INR APTT pCO2 43 pO2 55 L HCO3 28.1 H ABG pH 7.44 ABG Total CO2 30.5 H ABG O2 Saturation 92.4 L ABG O2 Content ABG Base Excess 4.4 H ABG Hemoglobin ABG Carboxyhemoglobin POC ABG HHb (Measured) ABG Methemoglobin ABG O2 Capacity Must[place]ha Test Yes ABG Potassium 3.4 L A-a O2 Difference 41.0 Hgb O2 Saturation Glucose 106 H Lactate 0.7 Vent Mode Mechanical Rate FiO2 21.0 Tidal Volume PEEP Pressure Support CPAP Sodium 134.0 Potassium Chloride 101.0 Carbon Dioxide Anion Gap BUN Creatinine Est GFR ( Amer) Est GFR (Non-Af Amer) POC Glucose (mg/dL) 109 127 H Random Glucose Calcium Phosphorus Magnesium Total Bilirubin AST ALT Alkaline Phosphatase Troponin I NT-Pro-B Natriuret Pep Total Protein Albumin Globulin Albumin/Globulin Ratio Procalcitonin Cortisol AM Sample Arterial Blood Potassium 3.4 L 07/12/18 07/12/18 07/12/18 17:09 17:10 17:10 WBC 1.1 L* D RBC 5.03 Hgb 15.0 Hct 45.2 MCV 90.0 MCH 29.8 MCHC 33.1 RDW 14.3 Plt Count 163 MPV 8.4 Neut % (Auto) 55.1 Lymph % (Auto) 39.6 [place] % (Auto) 1.1 Eos % (Auto) 4.1 H Baso % (Auto) 0.1 Neut # (Auto) 0.6 L Lymph # (Auto) 0.4 L [place] # (Auto) 0.0 Eos # (Auto) 0.0 Baso # (Auto) 0.0 Neutrophils % (Manual) Band Neutrophils % Lymphocytes % (Manual) Reactive Lymphs % Monocytes % (Manual) Platelet Estimate Hypochromasia (manual) Anisocytosis (manual) Acanthocytes (Spur) PT INR APTT pCO2 47 H pO2 67 L HCO3 22.9 ABG pH 7.32 L ABG Total CO2 25.6 ABG O2 Saturation 95.2 ABG O2 Content 20.2 ABG Base Excess -2.4 L ABG Hemoglobin 15.7 ABG Carboxyhemoglobin 2.2 H POC ABG HHb (Measured) 4.6 ABG Methemoglobin 1.5 ABG O2 Capacity 21.2 Mustapha Test Yes ABG Potassium A-a O2 Difference 159.0 Hgb O2 Saturation 91.7 L Glucose Lactate Vent Mode Prvc/ac Mechanical Rate 12 FiO2 40.0 Tidal Volume 400 PEEP 5 Pressure Support CPAP Sodium 139 Potassium 2.9 L Chloride 109 H Carbon Dioxide 21 L Anion Gap 12 BUN 26 H Creatinine 0.8 Est GFR ( Amer) > 60 Est GFR (Non-Af Amer) > 60 POC Glucose (mg/dL) Random Glucose 101 Calcium 7.5 L Phosphorus Magnesium Total Bilirubin 1.0 AST 22 ALT 27 Alkaline Phosphatase 52 Troponin I NT-Pro-B Natriuret Pep Total Protein 4.6 L Albumin 2.3 L D Globulin 2.3 Albumin/Globulin Ratio 1.0 Procalcitonin Cortisol AM Sample Arterial Blood Potassium 07/12/18 07/12/18 07/12/18 18:00 23:17 23:17 WBC 2.9 L D RBC 4.52 Hgb 13.2 Hct 40.7 MCV 90.0 MCH 29.3 MCHC 32.5 L RDW 13.8 Plt Count 162 MPV 8.3 Neut % (Auto) 90.9 H Lymph % (Auto) 6.5 L [place] % (Auto) 1.8 Eos % (Auto) 0.8 Baso % (Auto) 0.0 Neut # (Auto) 2.6 Lymph # (Auto) 0.2 L [place] # (Auto) 0.1 Eos # (Auto) 0.0 Baso # (Auto) 0.0 Neutrophils % (Manual) 76 H Band Neutrophils % 6 H Lymphocytes % (Manual) 7 L Reactive Lymphs % 3 H Monocytes % (Manual) 8 Platelet Estimate Normal Hypochromasia (manual) Slight Anisocytosis (manual) Slight Acanthocytes (Spur) Moderate PT INR APTT pCO2 pO2 HCO3 ABG pH ABG Total CO2 ABG O2 Saturation ABG O2 Content ABG Base Excess ABG Hemoglobin ABG Carboxyhemoglobin POC ABG HHb (Measured) ABG Methemoglobin ABG O2 Capacity Must[place]ha Test ABG Potassium A-a O2 Difference Hgb O2 Saturation Glucose Lactate Vent Mode Mechanical Rate FiO2 Tidal Volume PEEP Pressure Support CPAP Sodium 137 Potassium 3.2 L Chloride 106 Carbon Dioxide 22 Anion Gap 12 BUN 25 H Creatinine 1.0 Est GFR ( Amer) > 60 Est GFR (Non-Af Amer) 53 POC Glucose (mg/dL) Random Glucose 92 Calcium 7.3 L Phosphorus 2.7 Magnesium 1.2 L Total Bilirubin 1.6 H AST 28 ALT 32 Alkaline Phosphatase 45 Troponin I < 0.0120 0.3620 H* NT-Pro-B Natriuret Pep 627 Total Protein 4.0 L Albumin 1.9 L Globulin 2.1 L Albumin/Globulin Ratio 0.9 L Procalcitonin Cortisol AM Sample Arterial Blood Potassium 07/12/18 07/12/18 07/13/18 23:17 23:25 04:22 WBC RBC Hgb Hct MCV MCH MCHC RDW Plt Count MPV Neut % (Auto) Lymph % (Auto) [place] % (Auto) Eos % (Auto) Baso % (Auto) Neut # (Auto) Lymph # (Auto) [place] # (Auto) Eos # (Auto) Baso # (Auto) Neutrophils % (Manual) Band Neutrophils % Lymphocytes % (Manual) Reactive Lymphs % Monocytes % (Manual) Platelet Estimate Hypochromasia (manual) Anisocytosis (manual) Acanthocytes (Spur) PT 16.5 H INR 1.5 APTT 28.3 pCO2 34 L 32 L pO2 104 H 82 HCO3 24.1 20.8 L ABG pH 7.43 7.38 ABG Total CO2 23.6 19.9 L ABG O2 Saturation 99.9 H 98.4 H ABG O2 Content ABG Base Excess -1.1 -5.2 L ABG Hemoglobin ABG Carboxyhemoglobin POC ABG HHb (Measured) ABG Methemoglobin ABG O2 Capacity Must[place]ha Test Yes Yes ABG Potassium 3.2 L 4.3 A-a O2 Difference 210.0 235.0 Hgb O2 Saturation Glucose 100 96 Lactate 2.4 H 2.3 H Vent Mode Simv Simv Mechanical Rate 10 10 FiO2 50.0 50.0 Tidal Volume 400 400 PEEP 6 6 Pressure Support 5 5 CPAP Sodium 133.0 133.0 Potassium Chloride 108.0 H 109.0 H Carbon Dioxide Anion Gap BUN Creatinine Est GFR ( Amer) Est GFR (Non-Af Amer) POC Glucose (mg/dL) Random Glucose Calcium Phosphorus Magnesium Total Bilirubin AST ALT Alkaline Phosphatase Troponin I NT-Pro-B Natriuret Pep Total Protein Albumin Globulin Albumin/Globulin Ratio Procalcitonin Cortisol AM Sample Arterial Blood Potassium 3.2 L 4.3 07/13/18 07/13/18 07/13/18 04:22 04:30 04:30 WBC 8.8 D RBC 4.40 Hgb 13.0 Hct 40.1 MCV 91.2 MCH 29.7 MCHC 32.5 L RDW 14.1 Plt Count 171 MPV Neut % (Auto) Lymph % (Auto) [place] % (Auto) Eos % (Auto) Baso % (Auto) Neut # (Auto) Lymph # (Auto) [place] # (Auto) Eos # (Auto) Baso # (Auto) Neutrophils % (Manual) Band Neutrophils % Lymphocytes % (Manual) Reactive Lymphs % Monocytes % (Manual) Platelet Estimate Hypochromasia (manual) Anisocytosis (manual) Acanthocytes (Spur) PT INR APTT pCO2 pO2 HCO3 ABG pH ABG Total CO2 ABG O2 Saturation ABG O2 Content ABG Base Excess ABG Hemoglobin ABG Carboxyhemoglobin POC ABG HHb (Measured) ABG Methemoglobin ABG O2 Capacity [place] Test ABG Potassium A-a O2 Difference Hgb O2 Saturation Glucose Lactate Vent Mode Mechanical Rate FiO2 Tidal Volume PEEP Pressure Support CPAP Sodium 136 Potassium 4.4 Chloride 107 Carbon Dioxide 20 L Anion Gap 13 BUN 25 H Creatinine 1.3 H Est GFR ( Amer) 47 Est GFR (Non-Af Amer) 39 POC Glucose (mg/dL) 101 Random Glucose 92 Calcium 7.5 L Phosphorus 3.8 Magnesium 2.5 H Total Bilirubin 0.9 AST 26 ALT 29 Alkaline Phosphatase 46 Troponin I 0.2970 H* NT-Pro-B Natriuret Pep Total Protein 4.0 L Albumin 1.9 L Globulin 2.0 L Albumin/Globulin Ratio 0.9 L Procalcitonin Cortisol AM Sample Arterial Blood Potassium 07/13/18 07/13/18 07/13/18 09:00 12:03 21:10 WBC 16.0 H D RBC 4.07 Hgb 12.0 Hct 36.9 MCV 90.6 MCH 29.6 MCHC 32.7 L RDW 14.4 Plt Count 139 MPV 9.0 Neut % (Auto) 89.3 H Lymph % (Auto) 3.8 L [place] % (Auto) 4.6 Eos % (Auto) 2.2 Baso % (Auto) 0.1 Neut # (Auto) 14.3 H Lymph # (Auto) 0.6 L [place] # (Auto) 0.7 Eos # (Auto) 0.3 Baso # (Auto) 0.0 Neutrophils % (Manual) Band Neutrophils % Lymphocytes % (Manual) Reactive Lymphs % Monocytes % (Manual) Platelet Estimate Hypochromasia (manual) Anisocytosis (manual) Acanthocytes (Spur) PT INR APTT pCO2 33 L pO2 86 HCO3 21.1 ABG pH 7.38 ABG Total CO2 20.5 L ABG O2 Saturation 99.0 H ABG O2 Content ABG Base Excess -4.8 L ABG Hemoglobin ABG Carboxyhemoglobin POC ABG HHb (Measured) ABG Methemoglobin ABG O2 Capacity Must[place] Test Yes ABG Potassium 4.2 A-a O2 Difference 229.0 Hgb O2 Saturation Glucose 94 Lactate 2.8 H Vent Mode Cpap Mechanical Rate FiO2 50.0 Tidal Volume PEEP Pressure Support 10 CPAP 5 Sodium 133.0 Potassium Chloride 108.0 H Carbon Dioxide Anion Gap BUN Creatinine Est GFR ( Amer) Est GFR (Non-Af Amer) POC Glucose (mg/dL) Random Glucose Calcium Phosphorus Magnesium Total Bilirubin AST ALT Alkaline Phosphatase Troponin I NT-Pro-B Natriuret Pep Total Protein Albumin Globulin Albumin/Globulin Ratio Procalcitonin Cortisol AM Sample 63.4 H Arterial Blood Potassium 4.2 07/13/18 07/13/18 07/14/18 21:10 21:10 04:44 WBC RBC Hgb Hct MCV MCH MCHC RDW Plt Count MPV Neut % (Auto) Lymph % (Auto) [place] % (Auto) Eos % (Auto) Baso % (Auto) Neut # (Auto) Lymph # (Auto) [place] # (Auto) Eos # (Auto) Baso # (Auto) Neutrophils % (Manual) Band Neutrophils % Lymphocytes % (Manual) Reactive Lymphs % Monocytes % (Manual) Platelet Estimate Hypochromasia (manual) Anisocytosis (manual) Acanthocytes (Spur) PT INR APTT pCO2 32 L 33 L pO2 92 95 HCO3 21.3 22.1 ABG pH 7.39 7.40 ABG Total CO2 20.4 L 21.4 L ABG O2 Saturation 99.6 H 100.0 H ABG O2 Content 17.5 ABG Base Excess -4.6 L -3.6 L ABG Hemoglobin 12.9 ABG Carboxyhemoglobin 1.7 H POC ABG HHb (Measured) 0.0 ABG Methemoglobin 2.6 ABG O2 Capacity 17.5 [place] Test Yes Yes ABG Potassium 3.8 A-a O2 Difference 225.0 220.0 Hgb O2 Saturation 95.7 Glucose 70 Lactate 2.0 Vent Mode Cpap Mechanical Rate FiO2 50.0 50.0 Tidal Volume PEEP 5 5 Pressure Support 10 10 CPAP Sodium 133.0 137 Potassium 4.1 Chloride 108.0 H 103 Carbon Dioxide 20 L Anion Gap 18 BUN 24 H Creatinine 1.1 Est GFR ( Amer) 57 Est GFR (Non-Af Amer) 47 POC Glucose (mg/dL) Random Glucose 69 Calcium 7.9 L Phosphorus 3.8 Magnesium 2.1 Total Bilirubin 0.6 AST 18 ALT 30 Alkaline Phosphatase 52 Troponin I NT-Pro-B Natriuret Pep Total Protein 4.3 L Albumin 2.2 L Globulin 2.2 Albumin/Globulin Ratio 1.0 Procalcitonin Cortisol AM Sample Arterial Blood Potassium 3.8 07/14/18 07/14/18 07/14/18 06:33 06:34 06:34 WBC 17.2 H RBC 4.07 Hgb 12.1 Hct 37.1 MCV 90.9 MCH 29.6 MCHC 32.6 L RDW 14.5 Plt Count 136 MPV Neut % (Auto) Lymph % (Auto) [place] % (Auto) Eos % (Auto) Baso % (Auto) Neut # (Auto) Lymph # (Auto) [place] # (Auto) Eos # (Auto) Baso # (Auto) Neutrophils % (Manual) Band Neutrophils % Lymphocytes % (Manual) Reactive Lymphs % Monocytes % (Manual) Platelet Estimate Hypochromasia (manual) Anisocytosis (manual) Acanthocytes (Spur) PT INR APTT pCO2 30 L pO2 110 H HCO3 21.9 ABG pH 7.42 ABG Total CO2 20.4 L ABG O2 Saturation 99.6 H ABG O2 Content ABG Base Excess -3.9 L ABG Hemoglobin ABG Carboxyhemoglobin POC ABG HHb (Measured) ABG Methemoglobin ABG O2 Capacity [place] Test Yes ABG Potassium 3.8 A-a O2 Difference 209.0 Hgb O2 Saturation Glucose 65 Lactate 1.9 Vent Mode Cpap Mechanical Rate FiO2 50.0 Tidal Volume PEEP 5 Pressure Support 10 CPAP Sodium 137.0 138 Potassium 3.9 Chloride 106.0 104 Carbon Dioxide 19 L Anion Gap 19 BUN 24 H Creatinine 1.0 Est GFR ( Amer) > 60 Est GFR (Non-Af Amer) 53 POC Glucose (mg/dL) Random Glucose 60 L Calcium 8.0 L Phosphorus Magnesium Total Bilirubin 0.5 AST 18 ALT 28 Alkaline Phosphatase 69 Troponin I NT-Pro-B Natriuret Pep Total Protein 4.5 L Albumin 2.3 L Globulin 2.2 Albumin/Globulin Ratio 1.1 Procalcitonin Cortisol AM Sample Arterial Blood Potassium 3.8 07/14/18 06:37 WBC RBC Hgb Hct MCV MCH MCHC RDW Plt Count MPV Neut % (Auto) Lymph % (Auto) [place] % (Auto) Eos % (Auto) Baso % (Auto) Neut # (Auto) Lymph # (Auto) [place] # (Auto) Eos # (Auto) Baso # (Auto) Neutrophils % (Manual) Band Neutrophils % Lymphocytes % (Manual) Reactive Lymphs % Monocytes % (Manual) Platelet Estimate Hypochromasia (manual) Anisocytosis (manual) Acanthocytes (Spur) PT INR APTT pCO2 pO2 HCO3 ABG pH ABG Total CO2 ABG O2 Saturation ABG O2 Content ABG Base Excess ABG Hemoglobin ABG Carboxyhemoglobin POC ABG HHb (Measured) ABG Methemoglobin ABG O2 Capacity [place] Test ABG Potassium A-a O2 Difference Hgb O2 Saturation Glucose Lactate Vent Mode Mechanical Rate FiO2 Tidal Volume PEEP Pressure Support CPAP Sodium Potassium Chloride Carbon Dioxide Anion Gap BUN Creatinine Est GFR ( Amer) Est GFR (Non-Af Amer) POC Glucose (mg/dL) Random Glucose Calcium Phosphorus 3.6 Magnesium 2.1 Total Bilirubin AST ALT Alkaline Phosphatase Troponin I NT-Pro-B Natriuret Pep Total Protein Albumin Globulin Albumin/Globulin Ratio Procalcitonin Cortisol AM Sample Arterial Blood Potassium Microbiology 07/10/18 19:55 Urine Random Urine Culture - Final Gram Negative [place] Assessment and Plan (1) Small bowel obstruction Status: Acute (2) Sepsis Status: Acute - Assessment and Plan (Free Text) Assessment: A/P- 87 year old female with multiple past medical history and s/p past hemicolectomy and reversal of colostomy who was admitted with abd . pain and found to have SBO and is POD #1 s/p Exploratory laparotomy, extenive lysis of adhesions, repair of enterotomies x 2, washout. pt. in ICU and on pressors and intubated but awake and clinically much better. afebrile leukocytosis today. blood cx- neg x 2 urine cx- GNR prelim plan- await blood cx. advise to continue empiric broad coverage with meropneme, flagyl,vanco and fluconazole pending further results. monitor wbc. check trach asp cx. all labs and imaging an chart notes were reviewed. all above d/w [employer] and the patient and her niece as well. Critical care time spent 40 minutes.
[2018-07-14] MEDS: Lactated Ringer's 1,000 ML IV SCH ×2 (13:49→20:27)
--- NOTE | 2018-07-14 15:21 | PN ---
DATE: 07/14/2018 CRITICAL CARE PROGRESS NOTE LOCATION: The patient is in ICU, bed 435. TIME SPENT: 50 minutes. SUBJECTIVE: The patient is seen and evaluated at bedside. Past medical, surgical, family, and social history reviewed. Events since admission noted. An 87-year-old female with medical history significant for gastroesophageal reflux disease, hypertension, hyperlipidemia, diverticulitis, status post hemicolectomy, status post colostomy reversal, repair of ventricular hernia, admitted to emergency room complaining of severe abdominal pain associated with nausea, found to have small bowel obstruction. Status post exploratory laparotomy and status post two enterotomies. Extubated in the recovery room. Noted SVT/questionable V-tach, re-intubated, and admitted to ICU. Currently on Levophed drip. Intubated on mechanical ventilation, on CPAP, pressure support of 10, PEEP of 5, FiO2 50%. Respiratory rate of 26, minute ventilation 8.6 liters, saturation 98%, end-tidal CO2 of 29. Eyes open, follows commands appropriately, at times anxious. No distress noted. No sedation required. PHYSICAL EXAMINATION: VITAL SIGNS: Temperature 99.1, heart rate 83 to 107, irregular, blood pressure 125/57, mean arterial pressure 79. Intake 6069, output 1402, positive balance 4667. Weight 134 pounds. HEAD, EYES, EARS, NOSE, AND THROAT: Pupils 2 to 3 mm, reactive, round and equal. Extraocular muscles intact. Conjunctivae pink. Sclerae white. NECK: Supple. Trachea central. CHEST: Bilateral breath sounds diminished in intensity. HEART: Rhythm irregular No audible murmur. ABDOMEN: Bowel sounds present, reduced._ No tenderness. EXTREMITIES: Upper extremities, normal. Lower extremities, trace edema. NEUROLOGIC: Alert, awake, follows commands. LABORATORY DATA: WBC 17.2, hemoglobin 12.1, hematocrit 37.1, platelet count of 136, PT 16.5, INR 1.5, PTT 28.3. ABG; pH 7.42, pCO2 30, pO2 110. Oxygen saturation 99.6 on CPAP 10, pressure support of 5. FiO2 of 50%. SMA-7: Sodium 138, potassium 3.9, chloride 104, CO2 of 19, blood urea nitrogen 24, creatinine 1, phosphorus 3.6, magnesium 2.1, total bilirubin 0.5. AST 18, ALT 28, alkaline phosphatase 69. Total protein of 64.5, albumin 2.3. Cortisol level in the morning 63.4. Urinalysis negative. Microbiology: Urine culture positive for gram-negative rods. Chest x-ray from this morning, report pending. X-ray on 07/13/2018, mild increase in opacification in both lung chicas, probably related to mild increase in congestion or atelectasis. Endotracheal tube and NG tube are in place. Small left pleural effusion not significantly changed. Mild increase in opacification related to increased congestion or increased patchy infiltrate. CURRENT MEDICATIONS: Acetaminophen, Ofirmev 1000 mg in 100 mL at 400 mL per hour every 8 hours, Aricept 10 mg NG daily, Lovenox 30 subcutaneous daily, fluconazole 100 mg at 50 mL per hour, Toradol 30 mg IV every 6 hours p.r.n., Ringer's lactate at 75 mL per hour, meropenem 1 g IV every 8 hours, metronidazole, Flagyl 500 mg every 8 hours, Remeron 30 mg p.o. at bedtime, Levophed at 7 mcg, Protonix 40 IV daily, Prevacid 20 mg p.o. daily, vancomycin 750 every 12 hours, vasopressin at 0.03 units. IMPRESSION: An 87-year-old female with hypertension, hyperlipidemia, gastroesophageal reflux disease, insomnia, dementia, diverticulitis, status post hemicolectomy, status post colostomy reversal, status post ventricular hernia repair, status post small bowel obstruction, taken to the operating room for lysis of adhesion, status post two enterotomies; overnight remains intubated and hypotensive, on vasopressin and Levophed being weaned off. 1. Neurological: Alert, off sedation. Ketorolac p.r.n. for pain. 2. Pulmonary: Postoperative respiratory failure, on continuous positive airway pressure with pressure support 10, wean off the ventilation as tolerated. Left pleural effusion from fluid overload. Adequate urine output. 3. Cardiovascular: Septic shock, on Levophed and vasopressin titrating down. Atrial fibrillation, status post amiodarone bolus, now remains in atrial fibrillation, rate controlled. We will add rate-controlling agents and anticoagulation as needed. Monitor for further bleeding. 4. Hematology: No acute issues. Hemoglobin and hematocrit stable. 5. Renal: Monitor urine output. Continue Ringer's lactate at 75 mL per hour. 6. Endocrine: No acute issues. 7. Gastrointestinal: Nothing by mouth. Discussed with Surgery, to start on trickle feeds from today. 9. Infectious disease: Sepsis from recent small bowel obstruction status post lysis of adhesions, status post enterotomies and fecal contamination of abdomen. On meropenem, Flagyl, and Diflucan. Keep head of bed 30 degrees up. Deep vein thrombosis prophylaxis. Gastrointestinal prophylaxis. Elizondo for strict intake and output. Code status, full. Marco Bhatt MD MTDD
[2018-07-14 16:13] LABS: ABG ALLEN TEST YES; ARTERIAL BLOOD GAS HCO3 20.9 mmol/L (21-28); ARTERIAL BLOOD GAS HEMOGLOBIN 11.1 g/dL (11.7-17.4); ARTERIAL BLOOD GAS O2 CAPACITY 15.3 mL/dL (16-24); ARTERIAL BLOOD GAS O2 CONTENT 15.1 ML/dL (15-23); ARTERIAL BLOOD GAS O2 SAT 98.8 % (95-98); ARTERIAL BLOOD GAS PCO2 30 mm/Hg (35-45); ARTERIAL BLOOD GAS PO2 86 mm/Hg (80-100); ARTERIAL BLOOD GAS TCO2 19.5 mmol/L (22-28)
--- NOTE | 2018-07-14 17:49 | PCM.PROC ---
Procedures Attestation:: I certify that I have explained the specified Operation(s) or Procedure(s), risks, benefits and reasonable alternatives to the Patient and/or other person responsible. The opportunity was given to ask questions and all questions answered - Extubation Clinical Parameters: Resolution/Stabilization of disease process, Hemodynamically Stable, Intact Cough/Gag Reflex, Spontaneous Respirations, Acceptable Vent Settings (FIO2<50%, PEEP<8, PaO2>75, pH>7.25) Weaning Criteria Met: Yes General Weaning Approaches: Pressure Support Ventilation (PSV) Weaning Patient Condition: Patient has been successfully extubated and assessed Oxygen Therapy: O2 via Venti Mask Patient Tolerated Procedure: Well
[2018-07-14] MEDS ORDERED: Sodium Chloride 0.9% 250 ML IV SCH (18:45)
[2018-07-14] MEDS ORDERED: Amiodarone 150mg/3 ml vial ONE (23:50)
[2018-07-15] MEDS: metroNIDAZOLE 500mg/100ml NS 100 ML IVPB SCH ×3 (00:13→17:29)
[2018-07-15] MEDS: Meropenem 1 GM in Sodium Chloride 0.9% 100 ML IVPB SCH ×3 (00:14→17:30)
[2018-07-15] MEDS: Amiodarone 900 MG in Dextrose 5% In Water 500 ML IVPB SCH ×2 (00:40→07:30)
--- NOTE | 2018-07-15 02:11 | PN ---
DATE: 07/14/2018 CRITICAL CARE PROGRESS NOTE LOCATION: The patient is in ICU, bed 435. TIME SPENT: 40 minutes. The patient is seen and evaluated at the bedside. Past medical, surgical, social and family history reviewed. ALLERGIES: NOTED. SUBJECTIVE: An 87-year-old female with a history significant for hypertension, hyperlipidemia, acid reflux, status post hemicolectomy, status post reversal of colostomy, ventral hernia repair years ago, admitted with complaints of severe abdominal pain associated with nausea. The patient was found to have small bowel obstruction. Underwent exploratory laparotomy, lysis of adhesions and two enterotomies. Postop in the recovery room, noted to have AFib with rapid ventricular response. Re-intubated, admitted to ICU overnight, remains intubated on mechanical ventilation; pressure support 10, PEEP 5, FiO2 of 50%, observed rate 24, observed tidal volume 340, minute ventilation 9 L, saturation 93%. sedation, on Levophed at 5.4 mcg/minute and vasopressin at 0.3 units/kg. PHYSICAL EXAMINATION: GENERAL: Alert and awake, follows commands appropriate. No distress noted. Complaining of pain at the site of incision. Able to move both upper and lower extremities. VITAL SIGNS: Temperature 98.6, heart rate 80-104, blood pressure 107/53, mean arterial pressure 71, respiratory rate 24, end-tidal CO2 of 13. Intake 6069 mL, output 1402, positive balance of 4667. HEAD, EYES, EARS, NOSE AND THROAT: Pupils are reactive. Conjunctivae pink. Sclerae white. NECK: Supple. CHEST: Bilateral breath sounds, diminished in intensity. HEART: Rhythm irregular, rate controlled. ABDOMEN: Bowel sounds present, diminished in intensity. Mild tenderness at the site of incision. EXTREMITIES: Upper extremities, no edema. Lower extremities, 1+ edema. SKIN: Without rash. NEUROLOGIC: No palpable cord. DP palpable. CURRENT MEDICATIONS: Include vasopressin at 0.03 units per minute, vancomycin 750 mg IV every 12 hours, Flagyl 500 mg IV every 8 hours, Protonix 40 IV daily, norepinephrine at 5.4 mcg/per minute, Remeron 30 mg p.o. at bedtime, meropenem 1 g IV every 8 hours, Ringer's lactate at 75 mL per hour, Toradol 30 mg IV every 6 hours p.r.n. for pain, fluconazole 100 mg IV daily, Lovenox 30 mg subcu daily, Aricept 10 mg at bedtime, Ofirmev 1000 mg in 100 mL at 400 mL/hour every 8 hours. LABORATORY DATA: WBC 17.2, hemoglobin 12.1, hematocrit 37.1, platelet count 136. PT 16.5, INR 1.5, PTT 28.3. ABG: pH of 7.42, pCO2 of 30, pO2 of 110, saturation 99.6 on CPAP, pressure support of 10, PEEP of 5, FiO2 of 50%. SMA-7: Sodium 138, potassium 3.9, chloride 104, CO2 of 19, blood urea nitrogen 24, creatinine 1, random glucose 60, calcium 8, phosphorus 3.6, magnesium 2.1, AST 18, ALT 28, total protein 4.5, albumin 2.3. Lipase pending. Serum cortisol level 63.4. Microbiology: Urine culture positive for gram-negative rods, colony less than 10,000. Chest x-ray done this morning: Endotracheal tube in place, triple-lumen catheter in the right atrial region, lung chicas slightly improved in aeration from prior study, no pneumothorax. IMPRESSION: An 87-year-old female, postoperative day one status post exploratory laparotomy for small bowel obstruction, status post two enterotomies with fecal soiling, history of hypertension, hyperlipidemia, gastroesophageal reflux disease, insomnia, dementia, diverticulitis, status post hemicolectomy and colostomy reversal in the past. 1. Neuro: Alert, awake. Follows commands. Using ketorolac p.r.n. for analgesia. Resolving septic encephalopathy. 2. Pulmonary: Postoperative respiratory failure. Being weaned off from the ventilator. Tolerating spontaneous breathing trial. We will extubate as tolerated. Left pleural effusion improved on the current chest x-ray. 3. Cardiovascular: Hypotension secondary to hypovolemia and sepsis. On Levophed and vasopressin, being weaned off. Atrial fibrillation, status post amiodarone bolus with rate now controlled. Closely monitor for recurrence. We will consider anticoagulation because of the persisting atrial fibrillation. 4. Hematology: No acute issues. Hemoglobin and hematocrit are stable. Normal platelet count. Leukocytosis is secondary to sepsis/peritonitis. 5. Endocrine: No acute issues. Maintain blood sugar in 90-110. 6. Gastrointestinal: Status post exploratory laparotomy, lysis of adhesions and enterotomies. Seen by Surgery. Started on trickle feeds today. Monitor for tolerance. 7. Infectious Disease: Sepsis from a recent small bowel obstruction, status post exploratory laparotomy, lysis of adhesions with enterotomies and fecal contamination. On meropenem and Flagyl. Seen by Infectious Disease consult. Recommendations noted. Deep venous thrombosis prophylaxis, on Lovenox. Gastrointestinal prophylaxis, on Protonix. Keep Elizondo for intake and output monitoring. CODE STATUS: Full. Marco Bhatt MD
[2018-07-15] MEDS: Lactated Ringer's 1,000 ML IV SCH ×2 (02:58→08:28)
[2018-07-15 06:22] LABS: BASO % 0.1 % (0.0-2.0); EOS # 0.2 K/uL (0.0-0.7); EOS % 0.9 % (0.0-4.0); HEMOGLOBIN 12.2 g/dL (12.0-16.0); LYMPH # 0.5 K/uL (1.0-4.3); LYMPH % 2.7 % (20.0-40.0); MEAN CELL VOLUME 91.8 fl (81.0-99.0); MEAN CORPUSCULAR HEMOGLOBIN 29.4 pg (27.0-31.0); MEAN CORPUSCULAR HGB CONC 32.1 g/dL (33.0-37.0); MEAN PLATELET VOLUME 8.6 fl (7.2-11.7); MONO # 0.5 K/uL (0.0-0.8); MONO % 2.9 % (0.0-10.0); NEUT # 16.4 K/uL (1.8-7.0); NEUT % 93.4 % (50.0-75.0); RBC 4.14 Mil/uL (3.80-5.20); RED CELL DISTRIBUTION WIDTH 15.3 % (11.5-14.5); WHITE BLOOD COUNT 17.5 K/uL (4.8-10.8)
[2018-07-15 06:33] LABS: ALBUMIN 2.5 g/dL (3.5-5.0); ALT/SGPT 30 U/L (9-52); AST/SGOT 23 U/L (14-36); BLOOD UREA NITROGEN 26 mg/dl (7-17); CALCIUM 8.5 mg/dL (8.4-10.2); GFR NON-AFRICAN AMERICAN > 60
[2018-07-15 07:49] LABS: ABG ALLEN TEST YES; ARTERIAL BLOOD GAS O2 SAT 98.3 % (95-98); ARTERIAL BLOOD GAS PCO2 53 mm/Hg (35-45); ARTERIAL BLOOD GAS PO2 89 mm/Hg (80-100); ARTERIAL BLOOD GAS TCO2 27.7 mmol/L (22-28)
--- NOTE | 2018-07-15 07:59 | CP.CCUPN ---
CCU Subjective - Physician Review Subjective (Free Text): 07/15/18 15:25 The patient was Seen/interviewed and examined by me at the bedside during ICU round, Medical records reviewed and Management issues were discussed and formulated with the house staff. Events reviewed 87 Years old Female PMHx HTN, Hyperlipidemia, GERD, insomnia, dementia, diverticulitis s/p hemicolectomy s/p colostomy reversal, ventral hernia repair. p/w SBO, taken to OR for SAILAJA, c/b 2 enterotomies. Went into SVT in PACU and was reintubated. Admitted to ICU for post-op monitoring. ICU course was noted for hypotension shock likely septic, requiring vasopressors with Levophed and vasopressin infusion Vasopressors were successfully weaned off and the patient was successfully extubated yesterday Overnight patient was confused requiring 1 mg of Ativan IV, this morning initially she was lethargic minimally responsive and throughout the morning mental status improved Afebrile over the next 24 hours Currently she is comfortable, in no acute distress CCU Objective - Vital Signs / Intake & Output Vital Signs (Last 4 hours): Vital Signs Temp Pulse Resp BP Pulse Ox 07/15/18 06:00 83 13 115/54 L 100 07/15/18 04:00 97.7 F 90 15 104/43 L 97 Intake and Output (Last 8hrs): Intake & Output 07/14/18 07/15/18 07/15/18 22:59 06:59 14:59 Intake Total 1639 1610 Output Total 340 320 Balance 1299 1290 Weight 158 lb 14.4 oz Intake: IV 959 1050 Intake, Piggyback 600 500 Tube Feeding 80 60 Output: Urine 340 320 Urethral (Huang) 340 320 - Physical Exam Head: Positive for: Atraumatic, Normocephalic Pupils: Positive for: PERRL Extroacular Muscles: Positive for: EOMI Conjunctiva: Positive for: Normal Mouth: Positive for: Moist Mucous Membranes Neck: Positive for: Normal Range of Motion Respiratory/Chest: Positive for: Good Air Exchange, Decreased Breath Sounds Cardiovascular: Positive for: Irregular Rhythm, Tachycardic Abdomen: Positive for: Normal Bowel Sounds. Negative for: Tenderness Upper Extremity: Positive for: Normal Inspection Lower Extremity: Positive for: Normal Inspection Psychiatric: Positive for: Alert - Medications Active Medications: Active Medications Generic Name Dose Route Start Last Admin Trade Name Freq PRN Reason Stop Dose Admin Donepezil HCl 10 mg 07/10/18 22:00 07/14/18 21:03 Aricept NG 10 mg HS LEILA Administration Enoxaparin Sodium 30 mg 07/13/18 12:15 07/14/18 08:11 Lovenox SC 30 mg DAILY LEILA Administration Protocol Meropenem 1 gm/ Sodium 100 mls @ 100 mls/hr 07/12/18 18:45 07/15/18 00:14 Chloride IVPB 100 mls/hr Q8 LEILA Administration Protocol Metronidazole 100 mls @ 100 mls/hr 07/12/18 18:45 07/15/18 00:13 Flagyl 500mg/100ml Ns IVPB 100 mls/hr Q8 LEILA Administration Protocol Vasopressin 100 units/ Sodium 105 mls @ 1.89 mls/hr 07/12/18 20:15 07/14/18 19:01 Chloride IV 0 units/min .Q24H LEILA 0 mls/hr Titration Protocol 0.03 UNITS/MIN Fluconazole 50 mls @ 50 mls/hr 07/13/18 12:00 07/14/18 13:02 Diflucan Iv 100 Mg/50 Ml Ns IVPB 50 mls/hr DAILY LEILA Administration Protocol Vancomycin HCl 750 mg/ Sodium 250 mls @ 166.667 mls/hr 07/13/18 12:00 07/14/18 20:26 Chloride IVPB 166.667 mls/hr Q12 LEILA Administration Protocol Acetaminophen 1,000 mg in 100 mls @ 400 mls/hr 07/13/18 22:30 07/15/18 05:56 Ofirmev IVPB 07/15/18 22:31 Not Given Q8H LEILA Protocol Sodium Chloride 250 mls @ 999 mls/hr 07/14/18 18:45 07/14/18 18:53 Sodium Chloride 0.9% IV 07/15/18 18:40 999 mls/hr .Q16M LEILA Administration Lactated Ringer's 1,000 mls @ 125 mls/hr 07/14/18 18:41 07/15/18 02:58 Lactated Ringer's IV 125 mls/hr .Q8H LEILA Administration Amiodarone HCl 900 mg/ 518 mls @ 34.53 mls/hr 07/14/18 23:43 07/15/18 00:40 Dextrose IVPB 34.53 mls/hr .Q15H1M LEILA Administration Protocol 1 MG/MIN Ketorolac Tromethamine 30 mg 07/10/18 19:16 07/14/18 19:06 Toradol IVP 30 mg Q6 PRN Administration Pain, severe (8-10) Mirtazapine 30 mg 07/10/18 22:00 07/14/18 21:58 Remeron PO 30 mg HS LEILA Administration Ondansetron HCl 4 mg 07/10/18 19:05 07/12/18 10:40 Zofran Inj IVP 4 mg Q6 PRN Administration Nausea/Vomiting Pantoprazole Sodium 40 mg 07/11/18 09:00 07/14/18 08:10 Protonix Inj IVP 40 mg DAILY LEILA Administration Pravastatin Sodium 20 mg 07/10/18 22:00 07/11/18 21:07 Pravachol PO 20 mg HS LEILA Administration - Patient Studies Lab Studies: Microbiology Studies 07/14/18 16:00 Gram Stain - Final Sputum 07/13/18 17:00 Blood Culture - Preliminary Blood-Venous NO GROWTH AFTER 24 HOURS 07/13/18 16:00 Blood Culture - Preliminary Blood-Venous NO GROWTH AFTER 24 HOURS Lab Studies 07/15/18 07/15/18 07/15/18 Range/Units 07:43 05:40 05:40 WBC 17.5 H (4.8-10.8) K/uL RBC 4.14 (3.80-5.20) Mil/uL Hgb 12.2 (12.0-16.0) g/dL Hct 38.0 (34.0-47.0) % MCV 91.8 (81.0-99.0) fl MCH 29.4 (27.0-31.0) pg MCHC 32.1 L (33.0-37.0) g/dL RDW 15.3 H (11.5-14.5) % Plt Count 127 L (130-400) K/uL MPV 8.6 (7.2-11.7) fl Neut % (Auto) 93.4 H (50.0-75.0) % Lymph % (Auto) 2.7 L (20.0-40.0) % [place] % (Auto) 2.9 (0.0-10.0) % Eos % (Auto) 0.9 (0.0-4.0) % Baso % (Auto) 0.1 (0.0-2.0) % Neut # (Auto) 16.4 H (1.8-7.0) K/uL Lymph # (Auto) 0.5 L (1.0-4.3) K/uL [place] # (Auto) 0.5 (0.0-0.8) K/uL Eos # (Auto) 0.2 (0.0-0.7) K/uL Baso # (Auto) 0.0 (0.0-0.2) K/uL Total Counted Cancelled Neutrophils % (Manual) Cancelled Band Neutrophils % Cancelled Lymphocytes % (Manual) Cancelled Reactive Lymphs % Cancelled Monocytes % (Manual) Cancelled Eosinophils % (Manual) Cancelled Basophils % (Manual) Cancelled Metamyelocytes % Cancelled Myelocytes % Cancelled Promyelocytes % Cancelled Blast Cells % Cancelled Plasma Cell % (Manual) Cancelled Nucleated RBC % Cancelled Hypersegmented Polys Cancelled Smudge Cells Cancelled Toxic Granulation Cancelled Dohle Bodies Cancelled Reyes Rods Cancelled Platelet Estimate Cancelled Plt Clumps, EDTA Cancelled Large Platelets Cancelled Giant Platelets Cancelled RBC Morphology Cancelled Polychromasia Cancelled Hypochromasia (manual) Cancelled Poikilocytosis (manual Cancelled Basophilic Stippling Cancelled Anisocytosis (manual) Cancelled Microcytosis (manual) Cancelled Macrocytosis (manual) Cancelled Spherocytes Cancelled Sickle Cells Cancelled Target Cells Cancelled Tear Drop Cells Cancelled Ovalocytes Cancelled Stomatocytes Cancelled Helmet Cells Cancelled [place] Bodies Cancelled [place] Cells Cancelled Acanthocytes (Spur) Cancelled Rouleaux Cancelled Schistocytes Cancelled pCO2 53 H (35-45) mm/Hg pO2 89 (80-100) mm/Hg HCO3 24.0 (21-28) mmol/L ABG pH 7.30 L (7.35-7.45) ABG Total CO2 27.7 (22-28) mmol/L ABG O2 Saturation 98.3 H (95-98) % ABG O2 Content (15-23) ML/dL ABG Base Excess -1.1 (-2.0-3.0) mmol/L ABG Hemoglobin (11.7-17.4) g/dL ABG Carboxyhemoglobin (0.5-1.5) % POC ABG HHb (Measured) (0.0-5.0) % ABG Methemoglobin (0.0-3.0) % ABG O2 Capacity (16-24) mL/dL Mustapha Test Yes ABG Potassium 3.4 L (3.6-5.2) mmol/L A-a O2 Difference 201.0 mm/Hg Hgb O2 Saturation (95.0-98.0) % Glucose 116 H (65-105) mg/dL Lactate 1.1 (0.7-2.1) mmol/L Vent Mode FiO2 50.0 % PEEP Pressure Support Sodium 137.0 139 (132-148) mmol/l Potassium 3.6 (3.6-5.0) MMOL/L Chloride 111.0 H 104 (98-107) mmol/L Carbon Dioxide 24 (22-30) mmol/L Anion Gap 15 (10-20) BUN 26 H (7-17) mg/dl Creatinine 0.8 (0.7-1.2) mg/dl Est GFR ( Amer) > 60 Est GFR (Non-Af Amer) > 60 Random Glucose 120 H (65-105) mg/dL Calcium 8.5 (8.4-10.2) mg/dL Total Bilirubin 0.4 (0.2-1.3) mg/dl AST 23 (14-36) U/L ALT 30 (9-52) U/L Alkaline Phosphatase 88 (38-126) U/L Total Protein 4.9 L (6.3-8.2) G/DL Albumin 2.5 L (3.5-5.0) g/dL Globulin 2.4 (2.2-3.9) gm/dL Albumin/Globulin Ratio 1.0 (1.0-2.1) Arterial Blood Potassium 3.4 L (3.6-5.2) mmol/L 07/14/18 Range/Units 16:05 WBC (4.8-10.8) K/uL RBC (3.80-5.20) Mil/uL Hgb (12.0-16.0) g/dL Hct (34.0-47.0) % MCV (81.0-99.0) fl MCH (27.0-31.0) pg MCHC (33.0-37.0) g/dL RDW (11.5-14.5) % Plt Count (130-400) K/uL MPV (7.2-11.7) fl Neut % (Auto) (50.0-75.0) % Lymph % (Auto) (20.0-40.0) % [place] % (Auto) (0.0-10.0) % Eos % (Auto) (0.0-4.0) % Baso % (Auto) (0.0-2.0) % Neut # (Auto) (1.8-7.0) K/uL Lymph # (Auto) (1.0-4.3) K/uL [place] # (Auto) (0.0-0.8) K/uL Eos # (Auto) (0.0-0.7) K/uL Baso # (Auto) (0.0-0.2) K/uL Total Counted Neutrophils % (Manual) Band Neutrophils % Lymphocytes % (Manual) Reactive Lymphs % Monocytes % (Manual) Eosinophils % (Manual) Basophils % (Manual) Metamyelocytes % Myelocytes % Promyelocytes % Blast Cells % Plasma Cell % (Manual) Nucleated RBC % Hypersegmented Polys Smudge Cells Toxic Granulation Dohle Bodies Reyes Rods Platelet Estimate Plt Clumps, EDTA Large Platelets Giant Platelets RBC Morphology Polychromasia Hypochromasia (manual) Poikilocytosis (manual Basophilic Stippling Anisocytosis (manual) Microcytosis (manual) Macrocytosis (manual) Spherocytes Sickle Cells Target Cells Tear Drop Cells Ovalocytes Stomatocytes Helmet Cells [place] Bodies David Cells Acanthocytes (Spur) Rouleaux Schistocytes pCO2 30 L (35-45) mm/Hg pO2 86 (80-100) mm/Hg HCO3 20.9 L (21-28) mmol/L ABG pH 7.40 (7.35-7.45) ABG Total CO2 19.5 L (22-28) mmol/L ABG O2 Saturation 98.8 H (95-98) % ABG O2 Content 15.1 (15-23) ML/dL ABG Base Excess -5.2 L (-2.0-3.0) mmol/L ABG Hemoglobin 11.1 L (11.7-17.4) g/dL ABG Carboxyhemoglobin 1.3 (0.5-1.5) % POC ABG HHb (Measured) 1.2 (0.0-5.0) % ABG Methemoglobin 1.7 (0.0-3.0) % ABG O2 Capacity 15.3 L (16-24) mL/dL Mustapha Test Yes ABG Potassium (3.6-5.2) mmol/L A-a O2 Difference 162.0 mm/Hg Hgb O2 Saturation 95.8 (95.0-98.0) % Glucose (65-105) mg/dL Lactate (0.7-2.1) mmol/L Vent Mode Cpap+ps FiO2 40.0 % PEEP 5 Pressure Support 5 Sodium (132-148) mmol/l Potassium (3.6-5.0) MMOL/L Chloride (98-107) mmol/L Carbon Dioxide (22-30) mmol/L Anion Gap (10-20) BUN (7-17) mg/dl Creatinine (0.7-1.2) mg/dl Est GFR ( Amer) Est GFR (Non-Af Amer) Random Glucose (65-105) mg/dL Calcium (8.4-10.2) mg/dL Total Bilirubin (0.2-1.3) mg/dl AST (14-36) U/L ALT (9-52) U/L Alkaline Phosphatase (38-126) U/L Total Protein (6.3-8.2) G/DL Albumin (3.5-5.0) g/dL Globulin (2.2-3.9) gm/dL Albumin/Globulin Ratio (1.0-2.1) Arterial Blood Potassium (3.6-5.2) mmol/L Laboratory Results - last 24 hr 07/14/18 07/15/18 07/15/18 16:05 05:40 05:40 WBC 17.5 H RBC 4.14 Hgb 12.2 Hct 38.0 MCV 91.8 MCH 29.4 MCHC 32.1 L RDW 15.3 H Plt Count 127 L MPV 8.6 Neut % (Auto) 93.4 H Lymph % (Auto) 2.7 L [place] % (Auto) 2.9 Eos % (Auto) 0.9 Baso % (Auto) 0.1 Neut # (Auto) 16.4 H Lymph # (Auto) 0.5 L [place] # (Auto) 0.5 Eos # (Auto) 0.2 Baso # (Auto) 0.0 Total Counted Cancelled Neutrophils % (Manual) Cancelled Band Neutrophils % Cancelled Lymphocytes % (Manual) Cancelled Reactive Lymphs % Cancelled Monocytes % (Manual) Cancelled Eosinophils % (Manual) Cancelled Basophils % (Manual) Cancelled Metamyelocytes % Cancelled Myelocytes % Cancelled Promyelocytes % Cancelled Blast Cells % Cancelled Plasma Cell % (Manual) Cancelled Nucleated RBC % Cancelled Hypersegmented Polys Cancelled Smudge Cells Cancelled Toxic Granulation Cancelled Dohle Bodies Cancelled Reyes Rods Cancelled Platelet Estimate Cancelled Plt Clumps, EDTA Cancelled Large Platelets Cancelled Giant Platelets Cancelled RBC Morphology Cancelled Polychromasia Cancelled Hypochromasia (manual) Cancelled Poikilocytosis (manual Cancelled Basophilic Stippling Cancelled Anisocytosis (manual) Cancelled Microcytosis (manual) Cancelled Macrocytosis (manual) Cancelled Spherocytes Cancelled Sickle Cells Cancelled Target Cells Cancelled Tear Drop Cells Cancelled Ovalocytes Cancelled Stomatocytes Cancelled Helmet Cells Cancelled [place] Bodies Cancelled David Cells Cancelled Acanthocytes (Spur) Cancelled Rouleaux Cancelled Schistocytes Cancelled pCO2 30 L pO2 86 HCO3 20.9 L ABG pH 7.40 ABG Total CO2 19.5 L ABG O2 Saturation 98.8 H ABG O2 Content 15.1 ABG Base Excess -5.2 L ABG Hemoglobin 11.1 L ABG Carboxyhemoglobin 1.3 POC ABG HHb (Measured) 1.2 ABG Methemoglobin 1.7 ABG O2 Capacity 15.3 L Mustapha Test Yes ABG Potassium A-a O2 Difference 162.0 Hgb O2 Saturation 95.8 Glucose Lactate Vent Mode Cpap+ps FiO2 40.0 PEEP 5 Pressure Support 5 Sodium 139 Potassium 3.6 Chloride 104 Carbon Dioxide 24 Anion Gap 15 BUN 26 H Creatinine 0.8 Est GFR ( Amer) > 60 Est GFR (Non-Af Amer) > 60 Random Glucose 120 H Calcium 8.5 Total Bilirubin 0.4 AST 23 ALT 30 Alkaline Phosphatase 88 Total Protein 4.9 L Albumin 2.5 L Globulin 2.4 Albumin/Globulin Ratio 1.0 Arterial Blood Potassium 07/15/18 07:43 WBC RBC Hgb Hct MCV MCH MCHC RDW Plt Count MPV Neut % (Auto) Lymph % (Auto) [place] % (Auto) Eos % (Auto) Baso % (Auto) Neut # (Auto) Lymph # (Auto) [place] # (Auto) Eos # (Auto) Baso # (Auto) Total Counted Neutrophils % (Manual) Band Neutrophils % Lymphocytes % (Manual) Reactive Lymphs % Monocytes % (Manual) Eosinophils % (Manual) Basophils % (Manual) Metamyelocytes % Myelocytes % Promyelocytes % Blast Cells % Plasma Cell % (Manual) Nucleated RBC % Hypersegmented Polys Smudge Cells Toxic Granulation Dohle Bodies Reyes Rods Platelet Estimate Plt Clumps, EDTA Large Platelets Giant Platelets RBC Morphology Polychromasia Hypochromasia (manual) Poikilocytosis (manual Basophilic Stippling Anisocytosis (manual) Microcytosis (manual) Macrocytosis (manual) Spherocytes Sickle Cells Target Cells Tear Drop Cells Ovalocytes Stomatocytes Helmet Cells [place] Bodies [place] Cells Acanthocytes (Spur) Rouleaux Schistocytes pCO2 53 H pO2 89 HCO3 24.0 ABG pH 7.30 L ABG Total CO2 27.7 ABG O2 Saturation 98.3 H ABG O2 Content ABG Base Excess -1.1 ABG Hemoglobin ABG Carboxyhemoglobin POC ABG HHb (Measured) ABG Methemoglobin ABG O2 Capacity Mustapha Test Yes ABG Potassium 3.4 L A-a O2 Difference 201.0 Hgb O2 Saturation Glucose 116 H Lactate 1.1 Vent Mode FiO2 50.0 PEEP Pressure Support Sodium 137.0 Potassium Chloride 111.0 H Carbon Dioxide Anion Gap BUN Creatinine Est GFR ( Amer) Est GFR (Non-Af Amer) Random Glucose Calcium Total Bilirubin AST ALT Alkaline Phosphatase Total Protein Albumin Globulin Albumin/Globulin Ratio Arterial Blood Potassium 3.4 L Radiology Impressions: Radiology Impressions Chest X-Ray 07/14/18 06:00 IMPRESSION: Mild improvement in aeration and slight decrease in vascular congestion. Please see right triple lumen catheter placement position noted above. Fingerstick Blood Sugar Results: 101 Review of Systems - Review of Systems Systems not reviewed;Unavailable: Altered Mental Status Critical Care Progress Note - Extremities/Vascular Does the Patient have a Central Venous Catheter?: Yes Does the Patient need a Central Venous Catheter?: Yes Does the Patient have a Huang Catheter?: Yes Does the Patient need a Huang Catheter?: Yes - Nutrition Nutrition: Nutrition Category Date Time Status NPO Diet [DIET] Diets 07/10/18 Dinner Active Assessment/Plan (1) Septic shock Current Visit: Yes Status: Acute Priority: High Comment: septic shock Improving, now off levophed and vasopressin sepsis from recent SBO, s/p SAILAJA with enterotomies and fecal contamination of abdomen. Continue Meropenem and Flagyl. (2) Postoperative acute respiratory failure Current Visit: Yes Status: Acute Priority: High Comment: Also left pleural effusion from fluid overload Continue Antibiotics Gentle diuresis Nebs CXR, ABG, Frequent neuro check HOB maintained at 30 degrees. Aggressive pulmonary toilet, chest PT, suctioning (3) Small bowel obstruction Current Visit: Yes Status: Acute Priority: High (4) Afib Current Visit: Yes Status: Acute Priority: High Comment: Received amiodarone bolus, Cadrioloy evaluation appretiated (5) Non Q wave myocardial infarction Current Visit: Yes Status: Acute Priority: High - Assessment and Plan (Free Text) Assessment: HOB maintained at 30 degrees. GI/DVT PPX DVT PPX - lovenox GI PPX - protonix huang for strict I/O's during acute illness Code status - full code Critical Care time spent 35 minutes
--- NOTE | 2018-07-15 07:59 | CARD ---
APPROVED REPORT Date of service: 07/14/2018 EKG Measurement Heart [id number] <Conclusion> Atrial fibrillation with rapid ventricular response Incomplete right bundle branch block Nonspecific T wave abnormality Abnormal ECG
--- NOTE | 2018-07-15 08:00 | CP.PCM.PN ---
<Tremayne Candelaria - Last Filed: 07/15/18 15:41> Subjective - Date & Time of Evaluation Date of Evaluation: 07/15/18 Time of Evaluation: 08:00 - Subjective Subjective: General Surgery Note for Dr. Mendez Patient seen and examined at bedside. She is s/p exploratory laparotomy, lysis of adhesion, and repair of enterotomy x 2 for SBO POD#3. Overnight, patient develop delirium. She became agitated and experiencing hallucinations. She had a run of afib again yesterday and was started on amiodarone drip. Yesterday patient was extubated. Urine output was 660cc/24hr . GCS 14. Patient admits to pain still but says its improved. Denies fever/chills, cp, SOB. Objective - Vital Signs/Intake and Output Vital Signs (last 24 hours): Temp Pulse Resp BP Pulse Ox 97.7 F 83 13 115/54 L 100 07/15/18 04:00 07/15/18 06:00 07/15/18 06:00 07/15/18 06:00 07/15/18 06:00 Intake and Output: 07/15/18 07/15/18 06:59 18:59 Intake Total 2259 Output Total 320 Balance 1939 - Medications Medications: Current Medications Donepezil HCl (Aricept) 10 mg NG HS [facility] Last Admin: 07/14/18 21:03 Dose: 10 mg Enoxaparin Sodium (Lovenox) 30 mg SC DAILY [facility]; Protocol Last Admin: 07/14/18 08:11 Dose: 30 mg Meropenem 1 gm/ Sodium (Chloride) 100 mls @ 100 mls/hr IVPB Q8 [facility]; Protocol Last Admin: 07/15/18 00:14 Dose: 100 mls/hr Metronidazole (Flagyl 500mg/100ml Ns) 100 mls @ 100 mls/hr IVPB Q8 [facility]; Protocol Last Admin: 07/15/18 00:13 Dose: 100 mls/hr Vasopressin 100 units/ Sodium (Chloride) 105 mls @ 1.89 mls/hr IV .Q24H [facility]; Protocol Last Titration: 07/14/18 19:01 Dose: 0 units/min, 0 mls/hr Fluconazole (Diflucan Iv 100 Mg/50 Ml Ns) 50 mls @ 50 mls/hr IVPB DAILY [facility]; Protocol Last Admin: 07/14/18 13:02 Dose: 50 mls/hr Vancomycin HCl 750 mg/ Sodium (Chloride) 250 mls @ 166.667 mls/hr IVPB Q12 [facility]; Protocol Last Admin: 07/14/18 20:26 Dose: 166.667 mls/hr Acetaminophen (Ofirmev) 1,000 mg in 100 mls @ 400 mls/hr IVPB Q8H [facility]; Protocol Stop: 07/15/18 22:31 Last Admin: 07/15/18 05:56 Dose: Not Given Sodium Chloride (Sodium Chloride 0.9%) 250 mls @ 999 mls/hr IV .Q16M [facility] Stop: 07/15/18 18:40 Last Admin: 07/14/18 18:53 Dose: 999 mls/hr Lactated Ringer's (Lactated Ringer's) 1,000 mls @ 125 mls/hr IV .Q8H [facility] Last Admin: 07/15/18 02:58 Dose: 125 mls/hr Amiodarone HCl 900 mg/ (Dextrose) 518 mls @ 34.53 mls/hr IVPB .Q15H1M [facility]; Prot ocol Last Admin: 07/15/18 00:40 Dose: 34.53 mls/hr Ketorolac Tromethamine (Toradol) 30 mg IVP Q6 PRN PRN Reason: Pain, severe (8-10) Last Admin: 07/14/18 19:06 Dose: 30 mg Mirtazapine (Remeron) 30 mg PO HS [facility] Last Admin: 07/14/18 21:58 Dose: 30 mg Ondansetron HCl (Zofran Inj) 4 mg IVP Q6 PRN PRN Reason: Nausea/Vomiting Last Admin: 07/12/18 10:40 Dose: 4 mg Pantoprazole Sodium (Protonix Inj) 40 mg IVP DAILY [facility] Last Admin: 07/14/18 08:10 Dose: 40 mg Pravastatin Sodium (Pravachol) 20 mg PO HS [facility] Last Admin: 07/11/18 21:07 Dose: 20 mg - Labs Labs: 07/15/18 05:40 07/15/18 05:40 PT 16.5 Seconds (9.8-13.1) H 07/12/18 23:17 INR 1.5 07/12/18 23:17 APTT 28.3 Seconds (25.6-37.1) 07/12/18 23:17 - Additional Findings Additional findings: - Constitutional Appears: No Acute Distress - Head Exam Head Exam: ATRAUMATIC, NORMOCEPHALIC - Eye Exam Eye Exam: EOMI, Normal appearance Pupil Exam: PERRL - ENT Exam ENT Exam: Mucous Membranes Moist Additional comments: NGT in right nare - Neck Exam Additional comments: RIJ TLC - Respiratory Exam Additional comments: Normal bretahing pattern, 2LNC - Cardiovascular Exam Cardiovascular Exam: REGULAR RHYTHM - GI/Abdominal Exam GI & Abdominal Exam: Soft, Tenderness (surgical site), Normal Bowel Sounds. absent: Distended, Firm, Guarding, Rigid, Rebound Additional comments: dressing clean dry and intact - Extremities Exam Extremities Exam: Normal Capillary Refill - Back Exam Back Exam: absent: CVA tenderness (L), CVA tenderness (R) - Neurological Exam Neurological Exam: Alert, Awake Additional comments: GCS14 - Psychiatric Exam Psychiatric exam: Flat Affect - Skin Skin Exam: Dry, Normal Color, Warm Assessment and Plan - Assessment and Plan (Free Text) Assessment: 87 F who presents with septic shock, acute respiratory failure, elevated lactate, s/p exploratory laparotomy, lysis of adhesion, and repair of enterotomy x 2 for SBO POD#3 Plan: Neuro -GCS14 -HOB > 30 -Pain control -Aricept -Remeron Resp -Maintain SaO2 > 92% -2LNC CV -Maintain MAP > 65 -off vasopressors GI -NPO -NGT trickle feed 10cc/hr, DO NOT ADVANCE -Protonix -Zofran PRN -Strict I's & O's -Maintain Urine output 0.5-1 cc/kg/hr -IVF -Replete electrolytes PRN Endo -Maintain euglycemia 140-180 Heme -Monitor H/H and platelets -Chemical and mechanical DVT ppx ID -ID consult, f/u recommendations -Merrem, Flagyl, Vanco, Fluconazole -Trend WBC <Wilder Bullock - Last Filed: 07/16/18 13:32> Subjective - Subjective Subjective: All medical record entries made by the resident were at my direction. I have reviewed the chart and agree that the record accurately reflects my personal performance of the history, physical exam, medical decision making. I have also personally directed, reviewed, and agree with the resident note Objective - Vital Signs/Intake and Output Vital Signs (last 24 hours): Temp Pulse Resp BP Pulse Ox 97.3 F L 92 H 19 134/66 94 L 07/16/18 12:20 07/16/18 12:20 07/16/18 12:20 07/16/18 12:20 07/16/18 12:20 Intake and Output: 07/16/18 07/16/18 06:59 18:59 Intake Total 925 250 Output Total 2950 400 Balance -2024 -150 - Medications Medications: Current Medications Albuterol/Ipratropium (Duoneb 3 Mg/0.5 Mg (3 Ml) Ud) 3 ml INH RQ6 PRN PRN Reason: Shortness of Breath Last Admin: 07/15/18 21:58 Dose: 3 ml Donepezil HCl (Aricept) 10 mg NG HS [facility] Last Admin: 07/16/18 01:34 Dose: Not Given Enoxaparin Sodium (Lovenox) 30 mg SC DAILY [facility]; Protocol Last Admin: 07/16/18 08:29 Dose: 30 mg Metronidazole (Flagyl 500mg/100ml Ns) 100 mls @ 100 mls/hr IVPB Q8 [facility]; Protocol Last Admin: 07/16/18 08:26 Dose: 100 mls/hr Fluconazole (Diflucan Iv 100 Mg/50 Ml Ns) 50 mls @ 50 mls/hr IVPB DAILY [facility]; Protocol Last Admin: 07/16/18 10:43 Dose: 50 mls/hr Vancomycin HCl 750 mg/ Sodium (Chloride) 250 mls @ 166.667 mls/hr IVPB Q12 [facility]; Protocol Last Admin: 07/16/18 10:44 Dose: Not Given Ketorolac Tromethamine (Toradol) 30 mg IVP Q6 PRN PRN Reason: Pain, severe (8-10) Last Admin: 07/14/18 19:06 Dose: 30 mg Mirtazapine (Remeron) 30 mg PO HS [facility] Last Admin: 07/16/18 01:35 Dose: Not Given Ondansetron HCl (Zofran Inj) 4 mg IVP Q6 PRN PRN Reason: Nausea/Vomiting Last Admin: 07/12/18 10:40 Dose: 4 mg Pantoprazole Sodium (Protonix Inj) 40 mg IVP DAILY [facility] Last Admin: 07/16/18 08:29 Dose: 40 mg Pravastatin Sodium (Pravachol) 20 mg PO HS [facility] Last Admin: 07/16/18 01:35 Dose: Not Given - Labs Labs: 07/16/18 04:20 07/16/18 04:20 PT 16.5 Seconds (9.8-13.1) H 07/12/18 23:17 INR 1.5 07/12/18 23:17 APTT 28.3 Seconds (25.6-37.1) 07/12/18 23:17
--- NOTE | 2018-07-15 08:06 | CARD ---
APPROVED REPORT Date of service: 07/13/2018 EKG Measurement Heart [id number] <Conclusion> Atrial fibrillation with rapid ventricular response Low voltage QRS Nonspecific T wave abnormality Abnormal ECG
--- NOTE | 2018-07-15 08:07 | CARD ---
APPROVED REPORT Date of service: 07/13/2018 EKG Measurement Heart [id number] [id number] <Conclusion> Normal sinus rhythm Nonspecific T wave abnormality Abnormal ECG
[2018-07-15] MEDS: Fluconazole IV 100mg/50 ml NS 50 ML IVPB SCH (08:30)
[2018-07-15] MEDS: Enoxaparin 30 mg Syringe SC SCH (08:45)
--- NOTE | 2018-07-15 09:08 | CP.PCM.PN ---
Subjective - Date & Time of Evaluation Date of Evaluation: 07/15/18 Time of Evaluation: 07:43 - Subjective Subjective: Patient seen and examined in ICU, extubated, oxygen via a ventimask with SpO2 100%. VSS, afebrile. Patient denies any complains at moment. Patient denies fever/chills, chest pain, sob. Episode of Atrial Fibrillation last night with HF of 153/min. Amiodarone Bolus and drip 1mg/min for 6hours then 0.5mg/min for 18hours. Off pressors awake, alert but confused NGT in place - no drainage since this am, on TPN I&O 965/95 Objective - Vital Signs/Intake and Output Vital Signs (last 24 hours): Temp Pulse Resp BP Pulse Ox 97.3 F L 81 18 114/52 L 100 07/15/18 08:00 07/15/18 08:00 07/15/18 08:00 07/15/18 08:00 07/15/18 08:00 Intake and Output: 07/15/18 07/15/18 06:59 18:59 Intake Total 2259 Output Total 320 Balance 1939 - Medications Medications: Current Medications Donepezil HCl (Aricept) 10 mg NG HS [facility] Last Admin: 07/14/18 21:03 Dose: 10 mg Enoxaparin Sodium (Lovenox) 30 mg SC DAILY [facility]; Protocol Last Admin: 07/14/18 08:11 Dose: 30 mg Meropenem 1 gm/ Sodium (Chloride) 100 mls @ 100 mls/hr IVPB Q8 [facility]; Protocol Last Admin: 07/15/18 08:30 Dose: 100 mls/hr Metronidazole (Flagyl 500mg/100ml Ns) 100 mls @ 100 mls/hr IVPB Q8 [facility]; Protocol Last Admin: 07/15/18 08:26 Dose: 100 mls/hr Fluconazole (Diflucan Iv 100 Mg/50 Ml Ns) 50 mls @ 50 mls/hr IVPB DAILY [facility]; Protocol Last Admin: 07/15/18 08:30 Dose: 50 mls/hr Vancomycin HCl 750 mg/ Sodium (Chloride) 250 mls @ 166.667 mls/hr IVPB Q12 [facility]; Protocol Last Admin: 07/15/18 08:31 Dose: 166.667 mls/hr Acetaminophen (Ofirmev) 1,000 mg in 100 mls @ 400 mls/hr IVPB Q8H [facility]; Protocol Stop: 07/15/18 22:31 Last Admin: 07/15/18 05:56 Dose: Not Given Sodium Chloride (Sodium Chloride 0.9%) 250 mls @ 999 mls/hr IV .Q16M [facility] Stop: 07/15/18 18:40 Last Admin: 07/14/18 18:53 Dose: 999 mls/hr Lactated Ringer's (Lactated Ringer's) 1,000 mls @ 125 mls/hr IV .Q8H [facility] Last Admin: 07/15/18 08:28 Dose: 125 mls/hr Amiodarone HCl 900 mg/ (Dextrose) 518 mls @ 34.53 mls/hr IVPB .Q15H1M [facility]; Protocol Last Admin: 07/15/18 00:40 Dose: 34.53 mls/hr Ketorolac Tromethamine (Toradol) 30 mg IVP Q6 PRN PRN Reason: Pain, severe (8-10) Last Admin: 07/14/18 19:06 Dose: 30 mg Mirtazapine (Remeron) 30 mg PO HS [facility] Last Admin: 07/14/18 21:58 Dose: 30 mg Ondansetron HCl (Zofran Inj) 4 mg IVP Q6 PRN PRN Reason: Nausea/Vomiting Last Admin: 07/12/18 10:40 Dose: 4 mg Pantoprazole Sodium (Protonix Inj) 40 mg IVP DAILY [facility] Last Admin: 07/15/18 08:26 Dose: 40 mg Pravastatin Sodium (Pravachol) 20 mg PO HS [facility] Last Admin: 07/11/18 21:07 Dose: 20 mg - Labs Labs: 07/15/18 05:40 07/15/18 05:40 PT 16.5 Seconds (9.8-13.1) H 07/12/18 23:17 INR 1.5 07/12/18 23:17 APTT 28.3 Seconds (25.6-37.1) 07/12/18 23:17 - Constitutional Appears: No Acute Distress - Head Exam Head Exam: NORMAL INSPECTION - Eye Exam Eye Exam: EOMI, PERRL - ENT Exam ENT Exam: Mucous Membranes Moist - Respiratory Exam Respiratory Exam: Clear to Ausculation Bilateral, NORMAL BREATHING PATTERN - Cardiovascular Exam Cardiovascular Exam: REGULAR RHYTHM, +S1, +S2. absent: Tachycardia - GI/Abdominal Exam GI & Abdominal Exam: Soft, Tenderness, Normal Bowel Sounds. absent: Distended Additional comments: Dressing clean and intact, Drain removed today by surgery - Extremities Exam Extremities Exam: absent: Calf Tenderness, Pedal Edema - Neurological Exam Neurological Exam: Alert, Awake Additional comments: Confused, able to follow commands - Skin Skin Exam: Dry, Warm Assessment and Plan - Assessment and Plan (Free Text) Assessment: 87 F who presents with septic shock, acute respiratory failure, elevated lactate, s/p exploratory laparotomy, lysis of adhesion, and repair of enterotomy x2 for SBO POD #4 Plan: Small bowel obstruction - s/p ex laparotomy POD 4 - leukocytosis - General surgery, Dr. Mendez on board - on TPN - NGT in place - Pain management with toradol - Anti-emetics - ivf: lr AT 100 Leukocytosis - like 2/2 to sepsis or reactive to stress - Afebrile - WBC 17.2 - continue meropenem, Vanco, Flagyl and diflucan added as ID recommendation - Hemo/onc are on the case AFib - on amiodarone drip - back to NSR, HR 88 - transient troponin elevation after surgery - Cardiology consulted, recs appreciated Hiatal hernia - c/w protonix 40 mg IVP Hypertension - resume metoprolol succinated 50 mg ER Hyperlipidemia - resume pravastatin 20 mg po hs GERD - start protonix 40 mg IVP Cognitive impairment - resume aricept Insominia/anxiety - resume remeron and aricept DVT prophylaxis - SCDs - Lovenox 40 sc Case seen and examined with Dr Ernesto Ramírez PGY 2
--- NOTE | 2018-07-15 10:01 | CP.PCM.PN ---
Subjective - Date & Time of Evaluation Date of Evaluation: 07/15/18 Time of Evaluation: 10:01 - Subjective Subjective: ID Note- Pt. seen and examined today in ICU. s/p extubation and is on Oxygen via FM. awake but drowsy today chapincito carter per nurse pt. had received ativan overnight. Objective - Vital Signs/Intake and Output Vital Signs (last 24 hours): Temp Pulse Resp BP Pulse Ox 97.3 F L 81 18 114/52 L 100 07/15/18 08:00 07/15/18 08:00 07/15/18 08:00 07/15/18 08:00 07/15/18 08:00 Intake and Output: 07/15/18 07/15/18 06:59 18:59 Intake Total 2259 270 Output Total 320 55 Balance 1939 215 - Medications Medications: Current Medications Donepezil HCl (Aricept) 10 mg NG HS [facility] Last Admin: 07/14/18 21:03 Dose: 10 mg Enoxaparin Sodium (Lovenox) 30 mg SC DAILY [facility]; Protocol Last Admin: 07/14/18 08:11 Dose: 30 mg Meropenem 1 gm/ Sodium (Chloride) 100 mls @ 100 mls/hr IVPB Q8 [facility]; Protocol Last Admin: 07/15/18 08:30 Dose: 100 mls/hr Metronidazole (Flagyl 500mg/100ml Ns) 100 mls @ 100 mls/hr IVPB Q8 [facility]; Protocol Last Admin: 07/15/18 08:26 Dose: 100 mls/hr Fluconazole (Diflucan Iv 100 Mg/50 Ml Ns) 50 mls @ 50 mls/hr IVPB DAILY [facility]; Protocol Last Admin: 07/15/18 08:30 Dose: 50 mls/hr Vancomycin HCl 750 mg/ Sodium (Chloride) 250 mls @ 166.667 mls/hr IVPB Q12 [facility]; Protocol Last Admin: 07/15/18 08:31 Dose: 166.667 mls/hr Acetaminophen (Ofirmev) 1,000 mg in 100 mls @ 400 mls/hr IVPB Q8H [facility]; Protocol Stop: 07/15/18 22:31 Last Admin: 07/15/18 05:56 Dose: Not Given Sodium Chloride (Sodium Chloride 0.9%) 250 mls @ 999 mls/hr IV .Q16M [facility] Stop: 07/15/18 18:40 Last Admin: 07/14/18 18:53 Dose: 999 mls/hr Lactated Ringer's (Lactated Ringer's) 1,000 mls @ 125 mls/hr IV .Q8H [facility] Last Admin: 07/15/18 08:28 Dose: 125 mls/hr Amiodarone HCl 900 mg/ (Dextrose) 518 mls @ 34.53 mls/hr IVPB .Q15H1M [facility]; Protocol Last Admin: 07/15/18 00:40 Dose: 34.53 mls/hr Ketorolac Tromethamine (Toradol) 30 mg IVP Q6 PRN PRN Reason: Pain, severe (8-10) Last Admin: 07/14/18 19:06 Dose: 30 mg Mirtazapine (Remeron) 30 mg PO HS [facility] Last Admin: 07/14/18 21:58 Dose: 30 mg Ondansetron HCl (Zofran Inj) 4 mg IVP Q6 PRN PRN Reason: Nausea/Vomiting Last Admin: 07/12/18 10:40 Dose: 4 mg Pantoprazole Sodium (Protonix Inj) 40 mg IVP DAILY [facility] Last Admin: 07/15/18 08:26 Dose: 40 mg Pravastatin Sodium (Pravachol) 20 mg PO [facility] Last Admin: 07/11/18 21:07 Dose: 20 mg - Labs Labs: - Additional Findings Additional findings: Constitutional Appears: No Acute Distress Additional comments: intubated but is awake and responsive - Head Exam Head Exam: ATRAUMATIC - Eye Exam Eye Exam: EOMI, PERRL - Neck Exam Neck exam: Positive for: Full Rom - Respiratory Exam Additional comments: on the vent breath sounds heard b/l - Cardiovascular Exam Cardiovascular Exam: RRR, +S1, +S2 - GI/Abdominal Exam GI & Abdominal Exam: Soft Additional comments: mid lower abdomen surgical site with sutures in place, no more packing no discharge, no erythema no tenderness soft - Extremities Exam Extremities exam: Positive for: normal inspection - Neurological Exam Neurological exam: awake but drowsy today Laboratory Results - last 72 hr 07/12/18 07/12/18 07/12/18 04:30 17:09 17:10 WBC 1.1 L* D RBC 5.03 Hgb 15.0 Hct 45.2 MCV 90.0 MCH 29.8 MCHC 33.1 RDW 14.3 Plt Count 163 MPV 8.4 Neut % (Auto) 55.1 Lymph % (Auto) 39.6 [place] % (Auto) 1.1 Eos % (Auto) 4.1 H Baso % (Auto) 0.1 Neut # (Auto) 0.6 L Lymph # (Auto) 0.4 L [place] # (Auto) 0.0 Eos # (Auto) 0.0 Baso # (Auto) 0.0 Total Counted Neutrophils % (Manual) Band Neutrophils % Lymphocytes % (Manual) Reactive Lymphs % Monocytes % (Manual) Eosinophils % (Manual) Basophils % (Manual) Metamyelocytes % Myelocytes % Promyelocytes % Blast Cells % Plasma Cell % (Manual) Nucleated RBC % Hypersegmented Polys Smudge Cells Toxic Granulation Dohle Bodies Reyes Rods Platelet Estimate Plt Clumps, EDTA Large Platelets Giant Platelets RBC Morphology Polychromasia Hypochromasia (manual) Poikilocytosis (manual Basophilic Stippling Anisocytosis (manual) Microcytosis (manual) Macrocytosis (manual) Spherocytes Sickle Cells Target Cells Tear Drop Cells Ovalocytes Stomatocytes Helmet Cells [place] Bodies David Cells Acanthocytes (Spur) Rouleaux Schistocytes PT INR APTT pCO2 47 H pO2 67 L HCO3 22.9 ABG pH 7.32 L ABG Total CO2 25.6 ABG O2 Saturation 95.2 ABG O2 Content 20.2 ABG Base Excess -2.4 L ABG Hemoglobin 15.7 ABG Carboxyhemoglobin 2.2 H POC ABG HHb (Measured) 4.6 ABG Methemoglobin 1.5 ABG O2 Capacity 21.2 Mustapha Test Yes ABG Potassium A-a O2 Difference 159.0 Hgb O2 Saturation 91.7 L Glucose Lactate Vent Mode Prvc/ac Mechanical Rate 12 FiO2 40.0 Tidal Volume 400 PEEP 5 Pressure Support CPAP Sodium Potassium Chloride Carbon Dioxide Anion Gap BUN Creatinine Est GFR ( Amer) Est GFR (Non-Af Amer) POC Glucose (mg/dL) Random Glucose Calcium Phosphorus Magnesium Total Bilirubin AST ALT Alkaline Phosphatase Troponin I NT-Pro-B Natriuret Pep Total Protein Albumin Globulin Albumin/Globulin Ratio Procalcitonin 99.94 H Cortisol AM Sample Arterial Blood Potassium 07/12/18 07/12/18 07/12/18 17:10 18:00 23:17 WBC 2.9 L D RBC 4.52 Hgb 13.2 Hct 40.7 MCV 90.0 MCH 29.3 MCHC 32.5 L RDW 13.8 Plt Count 162 MPV 8.3 Neut % (Auto) 90.9 H Lymph % (Auto) 6.5 L [place] % (Auto) 1.8 Eos % (Auto) 0.8 Baso % (Auto) 0.0 Neut # (Auto) 2.6 Lymph # (Auto) 0.2 L [place] # (Auto) 0.1 Eos # (Auto) 0.0 Baso # (Auto) 0.0 Total Counted Neutrophils % (Manual) 76 H Band Neutrophils % 6 H Lymphocytes % (Manual) 7 L Reactive Lymphs % 3 H Monocytes % (Manual) 8 Eosinophils % (Manual) Basophils % (Manual) Metamyelocytes % Myelocytes % Promyelocytes % Blast Cells % Plasma Cell % (Manual) Nucleated RBC % Hypersegmented Polys Smudge Cells Toxic Granulation Dohle Bodies Reyes Rods Platelet Estimate Normal Plt Clumps, EDTA Large Platelets Giant Platelets RBC Morphology Polychromasia Hypochromasia (manual) Slight Poikilocytosis (manual Basophilic Stippling Anisocytosis (manual) Slight Microcytosis (manual) Macrocytosis (manual) Spherocytes Sickle Cells Target Cells Tear Drop Cells Ovalocytes Stomatocytes Helmet Cells [place] Bodies David Cells Acanthocytes (Spur) Moderate Rouleaux Schistocytes PT INR APTT pCO2 pO2 HCO3 ABG pH ABG Total CO2 ABG O2 Saturation ABG O2 Content ABG Base Excess ABG Hemoglobin ABG Carboxyhemoglobin POC ABG HHb (Measured) ABG Methemoglobin ABG O2 Capacity Must[place]ha Test ABG Potassium A-a O2 Difference Hgb O2 Saturation Glucose Lactate Vent Mode Mechanical Rate FiO2 Tidal Volume PEEP Pressure Support CPAP Sodium 139 Potassium 2.9 L Chloride 109 H Carbon Dioxide 21 L Anion Gap 12 BUN 26 H Creatinine 0.8 Est GFR ( Amer) > 60 Est GFR (Non-Af Amer) > 60 POC Glucose (mg/dL) Random Glucose 101 Calcium 7.5 L Phosphorus Magnesium Total Bilirubin 1.0 AST 22 ALT 27 Alkaline Phosphatase 52 Troponin I < 0.0120 NT-Pro-B Natriuret Pep Total Protein 4.6 L Albumin 2.3 L D Globulin 2.3 Albumin/Globulin Ratio 1.0 Procalcitonin Cortisol AM Sample Arterial Blood Potassium 07/12/18 07/12/18 07/12/18 23:17 23:17 23:25 WBC RBC Hgb Hct MCV MCH MCHC RDW Plt Count MPV Neut % (Auto) Lymph % (Auto) [place] % (Auto) Eos % (Auto) Baso % (Auto) Neut # (Auto) Lymph # (Auto) [place] # (Auto) Eos # (Auto) Baso # (Auto) Total Counted Neutrophils % (Manual) Band Neutrophils % Lymphocytes % (Manual) Reactive Lymphs % Monocytes % (Manual) Eosinophils % (Manual) Basophils % (Manual) Metamyelocytes % Myelocytes % Promyelocytes % Blast Cells % Plasma Cell % (Manual) Nucleated RBC % Hypersegmented Polys Smudge Cells Toxic Granulation Dohle Bodies Reyes Rods Platelet Estimate Plt Clumps, EDTA Large Platelets Giant Platelets RBC Morphology Polychromasia Hypochromasia (manual) Poikilocytosis (manual Basophilic Stippling Anisocytosis (manual) Microcytosis (manual) Macrocytosis (manual) Spherocytes Sickle Cells Target Cells Tear Drop Cells Ovalocytes Stomatocytes Helmet Cells [place] Bodies David Cells Acanthocytes (Spur) Rouleaux Schistocytes PT 16.5 H INR 1.5 APTT 28.3 pCO2 34 L pO2 104 H HCO3 24.1 ABG pH 7.43 ABG Total CO2 23.6 ABG O2 Saturation 99.9 H ABG O2 Content ABG Base Excess -1.1 ABG Hemoglobin ABG Carboxyhemoglobin POC ABG HHb (Measured) ABG Methemoglobin ABG O2 Capacity [place] Test Yes ABG Potassium 3.2 L A-a O2 Difference 210.0 Hgb O2 Saturation Glucose 100 Lactate 2.4 H Vent Mode Simv Mechanical Rate 10 FiO2 50.0 Tidal Volume 400 PEEP 6 Pressure Support 5 CPAP Sodium 137 133.0 Potassium 3.2 L Chloride 106 108.0 H Carbon Dioxide 22 Anion Gap 12 BUN 25 H Creatinine 1.0 Est GFR ( Amer) > 60 Est GFR (Non-Af Amer) 53 POC Glucose (mg/dL) Random Glucose 92 Calcium 7.3 L Phosphorus 2.7 Magnesium 1.2 L Total Bilirubin 1.6 H AST 28 ALT 32 Alkaline Phosphatase 45 Troponin I 0.3620 H* NT-Pro-B Natriuret Pep 627 Total Protein 4.0 L Albumin 1.9 L Globulin 2.1 L Albumin/Globulin Ratio 0.9 L Procalcitonin Cortisol AM Sample Arterial Blood Potassium 3.2 L 07/13/18 07/13/18 07/13/18 04:22 04:22 04:30 WBC 8.8 D RBC 4.40 Hgb 13.0 Hct 40.1 MCV 91.2 MCH 29.7 MCHC 32.5 L RDW 14.1 Plt Count 171 MPV Neut % (Auto) Lymph % (Auto) [place] % (Auto) Eos % (Auto) Baso % (Auto) Neut # (Auto) Lymph # (Auto) [place] # (Auto) Eos # (Auto) Baso # (Auto) Total Counted Neutrophils % (Manual) Band Neutrophils % Lymphocytes % (Manual) Reactive Lymphs % Monocytes % (Manual) Eosinophils % (Manual) Basophils % (Manual) Metamyelocytes % Myelocytes % Promyelocytes % Blast Cells % Plasma Cell % (Manual) Nucleated RBC % Hypersegmented Polys Smudge Cells Toxic Granulation Dohle Bodies Reyes Rods Platelet Estimate Plt Clumps, EDTA Large Platelets Giant Platelets RBC Morphology Polychromasia Hypochromasia (manual) Poikilocytosis (manual Basophilic Stippling Anisocytosis (manual) Microcytosis (manual) Macrocytosis (manual) Spherocytes Sickle Cells Target Cells Tear Drop Cells Ovalocytes Stomatocytes Helmet Cells [place] Bodies David Cells Acanthocytes (Spur) Rouleaux Schistocytes PT INR APTT pCO2 32 L pO2 82 HCO3 20.8 L ABG pH 7.38 ABG Total CO2 19.9 L ABG O2 Saturation 98.4 H ABG O2 Content ABG Base Excess -5.2 L ABG Hemoglobin ABG Carboxyhemoglobin POC ABG HHb (Measured) ABG Methemoglobin ABG O2 Capacity [place] Test Yes ABG Potassium 4.3 A-a O2 Difference 235.0 Hgb O2 Saturation Glucose 96 Lactate 2.3 H Vent Mode Simv Mechanical Rate 10 FiO2 50.0 Tidal Volume 400 PEEP 6 Pressure Support 5 CPAP Sodium 133.0 Potassium Chloride 109.0 H Carbon Dioxide Anion Gap BUN Creatinine Est GFR ( Amer) Est GFR (Non-Af Amer) POC Glucose (mg/dL) 101 Random Glucose Calcium Phosphorus Magnesium Total Bilirubin AST ALT Alkaline Phosphatase Troponin I NT-Pro-B Natriuret Pep Total Protein Albumin Globulin Albumin/Globulin Ratio Procalcitonin Cortisol AM Sample Arterial Blood Potassium 4.3 07/13/18 07/13/18 07/13/18 04:30 09:00 12:03 WBC RBC Hgb Hct MCV MCH MCHC RDW Plt Count MPV Neut % (Auto) Lymph % (Auto) [place] % (Auto) Eos % (Auto) Baso % (Auto) Neut # (Auto) Lymph # (Auto) [place] # (Auto) Eos # (Auto) Baso # (Auto) Total Counted Neutrophils % (Manual) Band Neutrophils % Lymphocytes % (Manual) Reactive Lymphs % Monocytes % (Manual) Eosinophils % (Manual) Basophils % (Manual) Metamyelocytes % Myelocytes % Promyelocytes % Blast Cells % Plasma Cell % (Manual) Nucleated RBC % Hypersegmented Polys Smudge Cells Toxic Granulation Dohle Bodies Reyes Rods Platelet Estimate Plt Clumps, EDTA Large Platelets Giant Platelets RBC Morphology Polychromasia Hypochromasia (manual) Poikilocytosis (manual Basophilic Stippling Anisocytosis (manual) Microcytosis (manual) Macrocytosis (manual) Spherocytes Sickle Cells Target Cells Tear Drop Cells Ovalocytes Stomatocytes Helmet Cells [place] Bodies David Cells Acanthocytes (Spur) Rouleaux Schistocytes PT INR APTT pCO2 33 L pO2 86 HCO3 21.1 ABG pH 7.38 ABG Total CO2 20.5 L ABG O2 Saturation 99.0 H ABG O2 Content ABG Base Excess -4.8 L ABG Hemoglobin ABG Carboxyhemoglobin POC ABG HHb (Measured) ABG Methemoglobin ABG O2 Capacity [place] Test Yes ABG Potassium 4.2 A-a O2 Difference 229.0 Hgb O2 Saturation Glucose 94 Lactate 2.8 H Vent Mode Cpap Mechanical Rate FiO2 50.0 Tidal Volume PEEP Pressure Support 10 CPAP 5 Sodium 136 133.0 Potassium 4.4 Chloride 107 108.0 H Carbon Dioxide 20 L Anion Gap 13 BUN 25 H Creatinine 1.3 H Est GFR ( Amer) 47 Est GFR (Non-Af Amer) 39 POC Glucose (mg/dL) Random Glucose 92 Calcium 7.5 L Phosphorus 3.8 Magnesium 2.5 H Total Bilirubin 0.9 AST 26 ALT 29 Alkaline Phosphatase 46 Troponin I 0.2970 H* NT-Pro-B Natriuret Pep Total Protein 4.0 L Albumin 1.9 L Globulin 2.0 L Albumin/Globulin Ratio 0.9 L Procalcitonin Cortisol AM Sample 63.4 H Arterial Blood Potassium 4.2 07/13/18 07/13/18 07/13/18 21:10 21:10 21:10 WBC 16.0 H D RBC 4.07 Hgb 12.0 Hct 36.9 MCV 90.6 MCH 29.6 MCHC 32.7 L RDW 14.4 Plt Count 139 MPV 9.0 Neut % (Auto) 89.3 H Lymph % (Auto) 3.8 L [place] % (Auto) 4.6 Eos % (Auto) 2.2 Baso % (Auto) 0.1 Neut # (Auto) 14.3 H Lymph # (Auto) 0.6 L [place] # (Auto) 0.7 Eos # (Auto) 0.3 Baso # (Auto) 0.0 Total Counted Neutrophils % (Manual) Band Neutrophils % Lymphocytes % (Manual) Reactive Lymphs % Monocytes % (Manual) Eosinophils % (Manual) Basophils % (Manual) Metamyelocytes % Myelocytes % Promyelocytes % Blast Cells % Plasma Cell % (Manual) Nucleated RBC % Hypersegmented Polys Smudge Cells Toxic Granulation Dohle Bodies Reyes Rods Platelet Estimate Plt Clumps, EDTA Large Platelets Giant Platelets RBC Morphology Polychromasia Hypochromasia (manual) Poikilocytosis (manual Basophilic Stippling Anisocytosis (manual) Microcytosis (manual) Macrocytosis (manual) Spherocytes Sickle Cells Target Cells Tear Drop Cells Ovalocytes Stomatocytes Helmet Cells [place] Bodies David Cells Acanthocytes (Spur) Rouleaux Schistocytes PT INR APTT pCO2 32 L pO2 92 HCO3 21.3 ABG pH 7.39 ABG Total CO2 20.4 L ABG O2 Saturation 99.6 H ABG O2 Content ABG Base Excess -4.6 L ABG Hemoglobin ABG Carboxyhemoglobin POC ABG HHb (Measured) ABG Methemoglobin ABG O2 Capacity [place] Test Yes ABG Potassium 3.8 A-a O2 Difference 225.0 Hgb O2 Saturation Glucose 70 Lactate 2.0 Vent Mode Cpap Mechanical Rate FiO2 50.0 Tidal Volume PEEP 5 Pressure Support 10 CPAP Sodium 133.0 137 Potassium 4.1 Chloride 108.0 H 103 Carbon Dioxide 20 L Anion Gap 18 BUN 24 H Creatinine 1.1 Est GFR ( Amer) 57 Est GFR (Non-Af Amer) 47 POC Glucose (mg/dL) Random Glucose 69 Calcium 7.9 L Phosphorus 3.8 Magnesium 2.1 Total Bilirubin 0.6 AST 18 ALT 30 Alkaline Phosphatase 52 Troponin I NT-Pro-B Natriuret Pep Total Protein 4.3 L Albumin 2.2 L Globulin 2.2 Albumin/Globulin Ratio 1.0 Procalcitonin Cortisol AM Sample Arterial Blood Potassium 3.8 07/14/18 07/14/18 07/14/18 04:44 06:33 06:34 WBC 17.2 H RBC 4.07 Hgb 12.1 Hct 37.1 MCV 90.9 MCH 29.6 MCHC 32.6 L RDW 14.5 Plt Count 136 MPV Neut % (Auto) Lymph % (Auto) [place] % (Auto) Eos % (Auto) Baso % (Auto) Neut # (Auto) Lymph # (Auto) [place] # (Auto) Eos # (Auto) Baso # (Auto) Total Counted Neutrophils % (Manual) Band Neutrophils % Lymphocytes % (Manual) Reactive Lymphs % Monocytes % (Manual) Eosinophils % (Manual) Basophils % (Manual) Metamyelocytes % Myelocytes % Promyelocytes % Blast Cells % Plasma Cell % (Manual) Nucleated RBC % Hypersegmented Polys Smudge Cells Toxic Granulation Dohle Bodies Reyes Rods Platelet Estimate Plt Clumps, EDTA Large Platelets Giant Platelets RBC Morphology Polychromasia Hypochromasia (manual) Poikilocytosis (manual Basophilic Stippling Anisocytosis (manual) Microcytosis (manual) Macrocytosis (manual) Spherocytes Sickle Cells Target Cells Tear Drop Cells Ovalocytes Stomatocytes Helmet Cells [place] Bodies David Cells Acanthocytes (Spur) Rouleaux Schistocytes PT INR APTT pCO2 33 L 30 L pO2 95 110 H HCO3 22.1 21.9 ABG pH 7.40 7.42 ABG Total CO2 21.4 L 20.4 L ABG O2 Saturation 100.0 H 99.6 H ABG O2 Content 17.5 ABG Base Excess -3.6 L -3.9 L ABG Hemoglobin 12.9 ABG Carboxyhemoglobin 1.7 H POC ABG HHb (Measured) 0.0 ABG Methemoglobin 2.6 ABG O2 Capacity 17.5 [place]ha Test Yes Yes ABG Potassium 3.8 A-a O2 Difference 220.0 209.0 Hgb O2 Saturation 95.7 Glucose 65 Lactate 1.9 Vent Mode Cpap Mechanical Rate FiO2 50.0 50.0 Tidal Volume PEEP 5 5 Pressure Support 10 10 CPAP Sodium 137.0 Potassium Chloride 106.0 Carbon Dioxide Anion Gap BUN Creatinine Est GFR ( Amer) Est GFR (Non-Af Amer) POC Glucose (mg/dL) Random Glucose Calcium Phosphorus Magnesium Total Bilirubin AST ALT Alkaline Phosphatase Troponin I NT-Pro-B Natriuret Pep Total Protein Albumin Globulin Albumin/Globulin Ratio Procalcitonin Cortisol AM Sample Arterial Blood Potassium 3.8 07/14/18 07/14/18 07/14/18 06:34 06:37 16:05 WBC RBC Hgb Hct MCV MCH MCHC RDW Plt Count MPV Neut % (Auto) Lymph % (Auto) [place] % (Auto) Eos % (Auto) Baso % (Auto) Neut # (Auto) Lymph # (Auto) [place] # (Auto) Eos # (Auto) Baso # (Auto) Total Counted Neutrophils % (Manual) Band Neutrophils % Lymphocytes % (Manual) Reactive Lymphs % Monocytes % (Manual) Eosinophils % (Manual) Basophils % (Manual) Metamyelocytes % Myelocytes % Promyelocytes % Blast Cells % Plasma Cell % (Manual) Nucleated RBC % Hypersegmented Polys Smudge Cells Toxic Granulation Dohle Bodies Reyes Rods Platelet Estimate Plt Clumps, EDTA Large Platelets Giant Platelets RBC Morphology Polychromasia Hypochromasia (manual) Poikilocytosis (manual Basophilic Stippling Anisocytosis (manual) Microcytosis (manual) Macrocytosis (manual) Spherocytes Sickle Cells Target Cells Tear Drop Cells Ovalocytes Stomatocytes Helmet Cells [place] Bodies [place] Cells Acanthocytes (Spur) Rouleaux Schistocytes PT INR APTT pCO2 30 L pO2 86 HCO3 20.9 L ABG pH 7.40 ABG Total CO2 19.5 L ABG O2 Saturation 98.8 H ABG O2 Content 15.1 ABG Base Excess -5.2 L ABG Hemoglobin 11.1 L ABG Carboxyhemoglobin 1.3 POC ABG HHb (Measured) 1.2 ABG Methemoglobin 1.7 ABG O2 Capacity 15.3 L [place] Test Yes ABG Potassium A-a O2 Difference 162.0 Hgb O2 Saturation 95.8 Glucose Lactate Vent Mode Cpap+ps Mechanical Rate FiO2 40.0 Tidal Volume PEEP 5 Pressure Support 5 CPAP Sodium 138 Potassium 3.9 Chloride 104 Carbon Dioxide 19 L Anion Gap 19 BUN 24 H Creatinine 1.0 Est GFR ( Amer) > 60 Est GFR (Non-Af Amer) 53 POC Glucose (mg/dL) Random Glucose 60 L Calcium 8.0 L Phosphorus 3.6 Magnesium 2.1 Total Bilirubin 0.5 AST 18 ALT 28 Alkaline Phosphatase 69 Troponin I NT-Pro-B Natriuret Pep Total Protein 4.5 L Albumin 2.3 L Globulin 2.2 Albumin/Globulin Ratio 1.1 Procalcitonin Cortisol AM Sample Arterial Blood Potassium 07/15/18 07/15/18 07/15/18 05:40 05:40 07:43 WBC 17.5 H RBC 4.14 Hgb 12.2 Hct 38.0 MCV 91.8 MCH 29.4 MCHC 32.1 L RDW 15.3 H Plt Count 127 L MPV 8.6 Neut % (Auto) 93.4 H Lymph % (Auto) 2.7 L [place] % (Auto) 2.9 Eos % (Auto) 0.9 Baso % (Auto) 0.1 Neut # (Auto) 16.4 H Lymph # (Auto) 0.5 L [place] # (Auto) 0.5 Eos # (Auto) 0.2 Baso # (Auto) 0.0 Total Counted Cancelled Neutrophils % (Manual) Cancelled Band Neutrophils % Cancelled Lymphocytes % (Manual) Cancelled Reactive Lymphs % Cancelled Monocytes % (Manual) Cancelled Eosinophils % (Manual) Cancelled Basophils % (Manual) Cancelled Metamyelocytes % Cancelled Myelocytes % Cancelled Promyelocytes % Cancelled Blast Cells % Cancelled Plasma Cell % (Manual) Cancelled Nucleated RBC % Cancelled Hypersegmented Polys Cancelled Smudge Cells Cancelled Toxic Granulation Cancelled Dohle Bodies Cancelled Reyes Rods Cancelled Platelet Estimate Cancelled Plt Clumps, EDTA Cancelled Large Platelets Cancelled Giant Platelets Cancelled RBC Morphology Cancelled Polychromasia Cancelled Hypochromasia (manual) Cancelled Poikilocytosis (manual Cancelled Basophilic Stippling Cancelled Anisocytosis (manual) Cancelled Microcytosis (manual) Cancelled Macrocytosis (manual) Cancelled Spherocytes Cancelled Sickle Cells Cancelled Target Cells Cancelled Tear Drop Cells Cancelled Ovalocytes Cancelled Stomatocytes Cancelled Helmet Cells Cancelled [place] Bodies Cancelled David Cells Cancelled Acanthocytes (Spur) Cancelled Rouleaux Cancelled Schistocytes Cancelled PT INR APTT pCO2 53 H pO2 89 HCO3 24.0 ABG pH 7.30 L ABG Total CO2 27.7 ABG O2 Saturation 98.3 H ABG O2 Content ABG Base Excess -1.1 ABG Hemoglobin ABG Carboxyhemoglobin POC ABG HHb (Measured) ABG Methemoglobin ABG O2 Capacity [place] Test Yes ABG Potassium 3.4 L A-a O2 Difference 201.0 Hgb O2 Saturation Glucose 116 H Lactate 1.1 Vent Mode Mechanical Rate FiO2 50.0 Tidal Volume PEEP Pressure Support CPAP Sodium 139 137.0 Potassium 3.6 Chloride 104 111.0 H Carbon Dioxide 24 Anion Gap 15 BUN 26 H Creatinine 0.8 Est GFR ( Amer) > 60 Est GFR (Non-Af Amer) > 60 POC Glucose (mg/dL) Random Glucose 120 H Calcium 8.5 Phosphorus Magnesium Total Bilirubin 0.4 AST 23 ALT 30 Alkaline Phosphatase 88 Troponin I NT-Pro-B Natriuret Pep Total Protein 4.9 L Albumin 2.5 L Globulin 2.4 Albumin/Globulin Ratio 1.0 Procalcitonin Cortisol AM Sample Arterial Blood Potassium 3.4 L 07/15/18 10:43 WBC RBC Hgb Hct MCV MCH MCHC RDW Plt Count MPV Neut % (Auto) Lymph % (Auto) [place] % (Auto) Eos % (Auto) Baso % (Auto) Neut # (Auto) Lymph # (Auto) [place] # (Auto) Eos # (Auto) Baso # (Auto) Total Counted Neutrophils % (Manual) Band Neutrophils % Lymphocytes % (Manual) Reactive Lymphs % Monocytes % (Manual) Eosinophils % (Manual) Basophils % (Manual) Metamyelocytes % Myelocytes % Promyelocytes % Blast Cells % Plasma Cell % (Manual) Nucleated RBC % Hypersegmented Polys Smudge Cells Toxic Granulation Dohle Bodies Reyes Rods Platelet Estimate Plt Clumps, EDTA Large Platelets Giant Platelets RBC Morphology Polychromasia Hypochromasia (manual) Poikilocytosis (manual Basophilic Stippling Anisocytosis (manual) Microcytosis (manual) Macrocytosis (manual) Spherocytes Sickle Cells Target Cells Tear Drop Cells Ovalocytes Stomatocytes Helmet Cells [place] Bodies [place] Cells Acanthocytes (Spur) Rouleaux Schistocytes PT INR APTT pCO2 46 H pO2 91 HCO3 23.9 ABG pH 7.34 L ABG Total CO2 26.2 ABG O2 Saturation 98.8 H ABG O2 Content ABG Base Excess -1.3 ABG Hemoglobin ABG Carboxyhemoglobin POC ABG HHb (Measured) ABG Methemoglobin ABG O2 Capacity [place] Test Yes ABG Potassium 3.5 L A-a O2 Difference 208.0 Hgb O2 Saturation Glucose 115 H Lactate 1.2 Vent Mode Mechanical Rate FiO2 50.0 Tidal Volume PEEP Pressure Support CPAP Sodium 138.0 Potassium Chloride 111.0 H Carbon Dioxide Anion Gap BUN Creatinine Est GFR ( Amer) Est GFR (Non-Af Amer) POC Glucose (mg/dL) Random Glucose Calcium Phosphorus Magnesium Total Bilirubin AST ALT Alkaline Phosphatase Troponin I NT-Pro-B Natriuret Pep Total Protein Albumin Globulin Albumin/Globulin Ratio Procalcitonin Cortisol AM Sample Arterial Blood Potassium 3.5 L Microbiology 07/14/18 15:58 Blood-Venous Blood Culture - Preliminary NO GROWTH AFTER 24 HOURS 07/13/18 17:21 Urine,Elizondo Urine Culture - Final No Growth (<1,000 CFU/ML) 07/14/18 16:00 Sputum Gram Stain - Final 07/13/18 17:00 Blood-Venous Blood Culture - Preliminary NO GROWTH AFTER 24 HOURS 07/13/18 16:00 Blood-Venous Blood Culture - Preliminary NO GROWTH AFTER 24 HOURS 07/10/18 19:55 Urine Random Urine Culture - Final Gram Negative [place] Assessment and Plan (1) Small bowel obstruction Status: Acute (2) Sepsis Status: Acute - Assessment and Plan (Free Text) Assessment: A/P- 87 year old female with multiple past medical history and s/p past hemicolectomy and reversal of colostomy who was admitted with abd . pain and found to have SBO and is POD #1 s/p Exploratory laparotomy, extenive lysis of adhesions, repair of enterotomies x 2, washout. extubated and off pressors. afebrile leukocytosis trending up. blood cx- neg x 3 urine cx- GNR prelim sputum cx- neg plan- advise to continue empiric broad coverage with meropenem, flagyl,vanco and fluconazole pending further results.day #3 keep vanco trough <15. monitor wbc. check stool c.diff advise to check abdominal CT if wbc does not improve to r/o any fluid or intra- abdominal abscess collection. all above d/w [employer] . Critical care time spent 40 minutes.
--- NOTE | 2018-07-15 10:06 | CP.PCM.CON ---
History of Present Illness - History of Present Illness History of Present Illness: This 87-year-old female, a hypertensive with early dementia came into the emergency room complaining of abdominal distention and vomiting and was found to have small bowel obstruction which required explorato ry laparotomy and was found to have multiple adhesions which required correction. Postoperatively the patient developed atrial fibrillation which has now reverted to sinus rhythm after amiodarone was initiated. The patient briefly required pressors which are also being withdrawn. The patient was briefly intubated and required ventilator support. She was extubated yesterday and now is on oxygen supplement with a mask. The patient has not had any cardiac issues in the past and has never suffered a myocardial infarction or congestive cardiac failure. She was never a smoker or a diabetic. The patient is mostly homebound and ambulates freely in the house. Physical examination shows an elderly lady who is resting comfortably in bed and according to the niece, tends to be disoriented off and on. She has been in sinus rhythm since this morning with a heart rate of 80 bpm. Her blood pressure was 116/74 mmHg. Her extremities were warm and nailbeds were pink. There was no central or peripheral cyanosis. The patient had made 55 cc of urine in last 2 hours. There was no pedal or sacral edema. Her surgical wound was clean. Inspiratory effort was poor but there were no rales. The apex was not palpable at the first and second heart sounds were normal. There was no murmur or gallop . Her electrocardiogram taken yesterday still display atrial fibrillation while her EKG at admission showed sinus rhythm. An echocardiogram on 16 morning showed preserved left ventricular systolic function with no significant valve abnormality. The patient was in atrial fibrillation at that time. Her lab data showed a mild increase in troponin levels immediately following her surgery. These levels were normal at admission. The electrocardiograms have not shown fresh Q waves. Impression: Non-Q wave myocardial infarction probably secondary to a brief period of hypotension during surgery or tachycardia during atrial fibrillation. The patient is hemodynamically stable and her electrocardiogram shows preserved left ventricular systolic function. The patient will be closely monitored. No intervention is recommended at this juncture. I have discussed these findings with her niece who is at bedside. Past Patient History - Past Medical History & Family History Past Medical History?: Yes - Past Social History Alcohol: None Drugs: Denies Home Situation {Lives}: Alone - CARDIAC Hx Hypercholesterolemia: Yes Hx Hypertension: Yes - MUSCULOSKELETAL/RHEUMATOLOGICAL Hx Falls: No - GASTROINTESTINAL Other/Comment: hx abdominal surgeries - PSYCHIATRIC Hx Substance Use: No - SURGICAL HISTORY Hx Cholecystectomy: Yes Hx Coronary Stent: (pt denies) - ANESTHESIA Hx Anesthesia: Yes Meds Allergies/Adverse Reactions: Allergies Allergy/AdvReac Type Severity Reaction Status Date / Time acetaminophen [From Percocet] Allergy RASH Verified 07/10/18 13:08 codeine Allergy RASH Verified 07/10/18 13:08 oxycodone [From Percocet] Allergy RASH Verified 07/10/18 13:08 - Medications Medications: Current Medications Donepezil HCl (Aricept) 10 mg NG HS [facility] Last Admin: 07/14/18 21:03 Dose: 10 mg Enoxaparin Sodium (Lovenox) 30 mg SC DAILY [facility]; Protocol Last Admin: 07/14/18 08:11 Dose: 30 mg Meropenem 1 gm/ Sodium (Chloride) 100 mls @ 100 mls/hr IVPB Q8 [facility]; Protocol Last Admin: 07/15/18 08:30 Dose: 100 mls/hr Metronidazole (Flagyl 500mg/100ml Ns) 100 mls @ 100 mls/hr IVPB Q8 [facility]; Protocol Last Admin: 07/15/18 08:26 Dose: 100 mls/hr Fluconazole (Diflucan Iv 100 Mg/50 Ml Ns) 50 mls @ 50 mls/hr IVPB DAILY [facility]; Protocol Last Admin: 07/15/18 08:30 Dose: 50 mls/hr Vancomycin HCl 750 mg/ Sodium (Chloride) 250 mls @ 166.667 mls/hr IVPB Q12 [facility]; Protocol Last Admin: 07/15/18 08:31 Dose: 166.667 mls/hr Acetaminophen (Ofirmev) 1,000 mg in 100 mls @ 400 mls/hr IVPB Q8H [facility]; Protocol Stop: 07/15/18 22:31 Last Admin: 07/15/18 05:56 Dose: Not Given Sodium Chloride (Sodium Chloride 0.9%) 250 mls @ 999 mls/hr IV .Q16M [facility] Stop: 07/15/18 18:40 Last Admin: 07/14/18 18:53 Dose: 999 mls/hr Lactated Ringer's (Lactated Ringer's) 1,000 mls @ 125 mls/hr IV .Q8H [facility] Last Admin: 07/15/18 08:28 Dose: 125 mls/hr Amiodarone HCl 900 mg/ (Dextrose) 518 mls @ 34.53 mls/hr IVPB .Q15H1M [facility]; Protocol Last Admin: 07/15/18 00:40 Dose: 34.53 mls/hr Ketorolac Tromethamine (Toradol) 30 mg IVP Q6 PRN PRN Reason: Pain, severe (8-10) Last Admin: 07/14/18 19:06 Dose: 30 mg Mirtazapine (Remeron) 30 mg PO HS [facility] Last Admin: 07/14/18 21:58 Dose: 30 mg Ondansetron HCl (Zofran Inj) 4 mg IVP Q6 PRN PRN Reason: Nausea/Vomiting Last Admin: 07/12/18 10:40 Dose: 4 mg Pantoprazole Sodium (Protonix Inj) 40 mg IVP DAILY [facility] Last Admin: 07/15/18 08:26 Dose: 40 mg Pravastatin Sodium (Pravachol) 20 mg PO HS [facility] Last Admin: 07/11/18 21:07 Dose: 20 mg Results - Vital Signs Recent Vital Signs: Last Vital Signs Temp 97.3 F L 07/15/18 08:00 Pulse 81 07/15/18 08:00 Resp 18 07/15/18 08:00 BP 114/52 L 07/15/18 08:00 Pulse Ox 100 07/15/18 08:00 - Labs Result Diagrams: 07/15/18 05:40 07/15/18 05:40 Labs: Laboratory Results - last 24 hr 07/14/18 07/15/18 07/15/18 16:05 05:40 05:40 WBC 17.5 H RBC 4.14 Hgb 12.2 Hct 38.0 MCV 91.8 MCH 29.4 MCHC 32.1 L RDW 15.3 H Plt Count 127 L MPV 8.6 Neut % (Auto) 93.4 H Lymph % (Auto) 2.7 L [place] % (Auto) 2.9 Eos % (Auto) 0.9 Baso % (Auto) 0.1 Neut # (Auto) 16.4 H Lymph # (Auto) 0.5 L [place] # (Auto) 0.5 Eos # (Auto) 0.2 Baso # (Auto) 0.0 Total Counted Cancelled Neutrophils % (Manual) Cancelled Band Neutrophils % Cancelled Lymphocytes % (Manual) Cancelled Reactive Lymphs % Cancelled Monocytes % (Manual) Cancelled Eosinophils % (Manual) Cancelled Basophils % (Manual) Cancelled Metamyelocytes % Cancelled Myelocytes % Cancelled Promyelocytes % Cancelled Blast Cells % Cancelled Plasma Cell % (Manual) Cancelled Nucleated RBC % Cancelled Hypersegmented Polys Cancelled Smudge Cells Cancelled Toxic Granulation Cancelled Dohle Bodies Cancelled Reyes Rods Cancelled Platelet Estimate Cancelled Plt Clumps, EDTA Cancelled Large Platelets Cancelled Giant Platelets Cancelled RBC Morphology Cancelled Polychromasia Cancelled Hypochromasia (manual) Cancelled Poikilocytosis (manual Cancelled Basophilic Stippling Cancelled Anisocytosis (manual) Cancelled Microcytosis (manual) Cancelled Macrocytosis (manual) Cancelled Spherocytes Cancelled Sickle Cells Cancelled Target Cells Cancelled Tear Drop Cells Cancelled Ovalocytes Cancelled Stomatocytes Cancelled Helmet Cells Cancelled [place] Bodies Cancelled [place] Cells Cancelled Acanthocytes (Spur) Cancelled Rouleaux Cancelled Schistocytes Cancelled pCO2 30 L pO2 86 HCO3 20.9 L ABG pH 7.40 ABG Total CO2 19.5 L ABG O2 Saturation 98.8 H ABG O2 Content 15.1 ABG Base Excess -5.2 L ABG Hemoglobin 11.1 L ABG Carboxyhemoglobin 1.3 POC ABG HHb (Measured) 1.2 ABG Methemoglobin 1.7 ABG O2 Capacity 15.3 L [place] Test Yes ABG Potassium A-a O2 Difference 162.0 Hgb O2 Saturation 95.8 Glucose Lactate Vent Mode Cpap+ps FiO2 40.0 PEEP 5 Pressure Support 5 Sodium 139 Potassium 3.6 Chloride 104 Carbon Dioxide 24 Anion Gap 15 BUN 26 H Creatinine 0.8 Est GFR ( Amer) > 60 Est GFR (Non-Af Amer) > 60 Random Glucose 120 H Calcium 8.5 Total Bilirubin 0.4 AST 23 ALT 30 Alkaline Phosphatase 88 Total Protein 4.9 L Albumin 2.5 L Globulin 2.4 Albumin/Globulin Ratio 1.0 Arterial Blood Potassium 07/15/18 07:43 WBC RBC Hgb Hct MCV MCH MCHC RDW Plt Count MPV Neut % (Auto) Lymph % (Auto) [place] % (Auto) Eos % (Auto) Baso % (Auto) Neut # (Auto) Lymph # (Auto) [place] # (Auto) Eos # (Auto) Baso # (Auto) Total Counted Neutrophils % (Manual) Band Neutrophils % Lymphocytes % (Manual) Reactive Lymphs % Monocytes % (Manual) Eosinophils % (Manual) Basophils % (Manual) Metamyelocytes % Myelocytes % Promyelocytes % Blast Cells % Plasma Cell % (Manual) Nucleated RBC % Hypersegmented Polys Smudge Cells Toxic Granulation Dohle Bodies Reyes Rods Platelet Estimate Plt Clumps, EDTA Large Platelets Giant Platelets RBC Morphology Polychromasia Hypochromasia (manual) Poikilocytosis (manual Basophilic Stippling Anisocytosis (manual) Microcytosis (manual) Macrocytosis (manual) Spherocytes Sickle Cells Target Cells Tear Drop Cells Ovalocytes Stomatocytes Helmet Cells [place] Bodies [place] Cells Acanthocytes (Spur) Rouleaux Schistocytes pCO2 53 H pO2 89 HCO3 24.0 ABG pH 7.30 L ABG Total CO2 27.7 ABG O2 Saturation 98.3 H ABG O2 Content ABG Base Excess -1.1 ABG Hemoglobin ABG Carboxyhemoglobin POC ABG HHb (Measured) ABG Methemoglobin ABG O2 Capacity [place] Test Yes ABG Potassium 3.4 L A-a O2 Difference 201.0 Hgb O2 Saturation Glucose 116 H Lactate 1.1 Vent Mode FiO2 50.0 PEEP Pressure Support Sodium 137.0 Potassium Chloride 111.0 H Carbon Dioxide Anion Gap BUN Creatinine Est GFR ( Amer) Est GFR (Non-Af Amer) Random Glucose Calcium Total Bilirubin AST ALT Alkaline Phosphatase Total Protein Albumin Globulin Albumin/Globulin Ratio Arterial Blood Potassium 3.4 L
--- NOTE | 2018-07-15 10:41 | CARD ---
APPROVED REPORT Date of service: 07/15/2018 EKG Measurement Heart [id number] <Conclusion> Normal sinus rhythm Normal ECG
[2018-07-15 10:49] LABS: ABG ALLEN TEST YES; ARTERIAL BLOOD GAS HCO3 23.9 mmol/L (21-28); ARTERIAL BLOOD GAS O2 SAT 98.8 % (95-98); ARTERIAL BLOOD GAS PCO2 46 mm/Hg (35-45); ARTERIAL BLOOD GAS PH 7.34 (7.35-7.45); ARTERIAL BLOOD GAS PO2 91 mm/Hg (80-100); ARTERIAL BLOOD GAS TCO2 26.2 mmol/L (22-28)
[2018-07-15] MEDS: Potassium CL 10 MEQ/50 ML 50 ML IVPB SCH ×2 (11:50→13:14)
[2018-07-15] MEDS: Albuterol-Ipratrop 3 mg / 0.5 (3 ml) UD INH PRN (21:58)
[2018-07-15] MEDS ORDERED: Nitroglycerin 2% 15 INCH/30 GM TUBE TOP STA (22:12)
[2018-07-15] MEDS ORDERED: Nitroglycerin 2% Ointment Foilpak UD TOP STA (22:14)
[2018-07-15] MEDS ORDERED: Nitroglycerin 2% Ointment Foilpak UD TOP ONE (22:23)
[2018-07-15 23:35] LABS: BLOOD UREA NITROGEN 23 mg/dl (7-17); CALCIUM 8.6 mg/dL (8.4-10.2); GFR NON-AFRICAN AMERICAN > 60
[2018-07-16] MEDS: metroNIDAZOLE 500mg/100ml NS 100 ML IVPB SCH ×3 (00:29→17:55)
[2018-07-16] MEDS ORDERED: Chlorhexidine Gluconate 1 APPL/PKT TP ONE (00:46)
[2018-07-16] MEDS: Meropenem 1 GM in Sodium Chloride 0.9% 100 ML IVPB SCH (00:56)
[2018-07-16] MEDS: Pravastatin Sodium 20 MG TAB PO SCH ×2 (01:35→22:50)
[2018-07-16 05:18] LABS: ALB/GLOB RATIO 1.1 (1.0-2.1); ALBUMIN 2.3 g/dL (3.5-5.0); ALT/SGPT 29 U/L (9-52); AST/SGOT 22 U/L (14-36); BLOOD UREA NITROGEN 22 mg/dl (7-17); GFR NON-AFRICAN AMERICAN > 60
[2018-07-16 05:32] LABS: HEMOGLOBIN 11.2 g/dL (12.0-16.0); MEAN CELL VOLUME 90.7 fl (81.0-99.0); MEAN CORPUSCULAR HEMOGLOBIN 29.4 pg (27.0-31.0); MEAN CORPUSCULAR HGB CONC 32.4 g/dL (33.0-37.0); RBC 3.81 Mil/uL (3.80-5.20); WHITE BLOOD COUNT 14.9 K/uL (4.8-10.8)
[2018-07-16] MEDS: Amiodarone 900 MG in Dextrose 5% In Water 500 ML IVPB SCH (06:17)
[2018-07-16] MEDS ORDERED: Potassium CL 10 MEQ/50 ML 50 ML IVPB ONE (06:57)
--- NOTE | 2018-07-16 08:13 | CP.PCM.PN ---
Subjective - Date & Time of Evaluation Date of Evaluation: 07/16/18 Time of Evaluation: 08:13 - Subjective Subjective: Patient seen and examined in ICU, sedated, asleep, supplemental oxygen via a venti mask with SpO2 100%. VSS, afebrile. Episode of a-fib w. RVR, last night, HR 130s-140s, as per nurse very agitated last night requiring sedation with Haldol Still running Amiodarone drip 0.5mg/min for 18hours. NGT in place - no drainage since this am I&O 3005/[id number] Objective - Vital Signs/Intake and Output Vital Signs (last 24 hours): Temp Pulse Resp BP Pulse Ox 98.8 F 104 H 20 102/55 L 95 07/16/18 04:41 07/16/18 06:17 07/16/18 06:17 07/16/18 06:17 07/16/18 06:17 Intake and Output: 07/16/18 07/16/18 06:59 18:59 Intake Total 925 Output Total 2950 Balance -2024 - Medications Medications: Current Medications Albuterol/Ipratropium (Duoneb 3 Mg/0.5 Mg (3 Ml) Ud) 3 ml INH RQ6 PRN PRN Reason: Shortness of Breath Last Admin: 07/15/18 21:58 Dose: 3 ml Donepezil HCl (Aricept) 10 mg NG HS [facility] Last Admin: 07/16/18 01:34 Dose: Not Given Enoxaparin Sodium (Lovenox) 30 mg SC DAILY [facility]; Protocol Last Admin: 07/15/18 08:45 Dose: 30 mg Metronidazole (Flagyl 500mg/100ml Ns) 100 mls @ 100 mls/hr IVPB Q8 [facility]; Protocol Last Admin: 07/16/18 00:29 Dose: 100 mls/hr Fluconazole (Diflucan Iv 100 Mg/50 Ml Ns) 50 mls @ 50 mls/hr IVPB DAILY [facility]; Protocol Last Admin: 07/15/18 08:30 Dose: 50 mls/hr Vancomycin HCl 750 mg/ Sodium (Chloride) 250 mls @ 166.667 mls/hr IVPB Q12 [facility]; Protocol Last Admin: 07/15/18 22:00 Dose: 166.667 mls/hr Amiodarone HCl 900 mg/ (Dextrose) 518 mls @ 34.53 mls/hr IVPB .Q15H1M [facility]; Protocol Last Admin: 07/16/18 06:17 Dose: 16.7 mls/hr Ketorolac Tromethamine (Toradol) 30 mg IVP Q6 PRN PRN Reason: Pain, severe (8-10) Last Admin: 07/14/18 19:06 Dose: 30 mg Mirtazapine (Remeron) 30 mg PO [facility] Last Admin: 07/16/18 01:35 Dose: Not Given Ondansetron HCl (Zofran Inj) 4 mg IVP Q6 PRN PRN Reason: Nausea/Vomiting Last Admin: 07/12/18 10:40 Dose: 4 mg Pantoprazole Sodium (Protonix Inj) 40 mg IVP DAILY [facility] Last Admin: 07/15/18 08:26 Dose: 40 mg Pravastatin Sodium (Pravachol) 20 mg PO [facility] Last Admin: 07/16/18 01:35 Dose: Not Given - Labs Labs: 07/16/18 04:20 07/16/18 04:20 PT 16.5 Seconds (9.8-13.1) H 07/12/18 23:17 INR 1.5 07/12/18 23:17 APTT 28.3 Seconds (25.6-37.1) 07/12/18 23:17 - Constitutional Appears: Other (Asleep, sedated) - Respiratory Exam Respiratory Exam: Decreased Breath Sounds, Rhonchi. absent: Rales, Wheezes - Cardiovascular Exam Cardiovascular Exam: REGULAR RHYTHM, +S1, +S2. absent: Tachycardia - GI/Abdominal Exam GI & Abdominal Exam: Distended (mild. ), Hypoactive Bowel Sounds Additional comments: Wound dressing noted clean, intact. No drain. - Extremities Exam Additional comments: LE edema b/l - Neurological Exam Additional comments: Sedated, s/p Haldol last night for agitation - Skin Skin Exam: Dry, Warm Additional comments: bruises noted over arms and abd wall at puncture site. Assessment and Plan - Assessment and Plan (Free Text) Assessment: 87 F who presents with septic shock, acute respiratory failure, elevated lactate, s/p exploratory laparotomy, lysis of adhesion, and repair of enterotomy x2 for SBO POD #4 Plan: Small bowel obstruction - s/p ex laparotomy POD 4 - General surgery, Dr. Mendez on board - NGT out - Pain management with toradol - Anti-emetics - continue IVF Leukocytosis, improving - like 2/2 to sepsis or reactive to stress - Afebrile - WBC trending down - continue meropenem, Vanco, Flagyl and diflucan added as ID recommendation - Hemo/onc are on the case AFib - on amiodarone drip - back to NSR, HR 75 - Cardiology consulted, recs appreciated - Echo: preserved left ventricular systolic function. Acute ID - likely 2/2 hypotension during surgery or tachycardia during A Fib. - Hemodynamically stable - troponin elevation ( less than 10 days of ID) - Echo: preserved left ventricular systolic function. - Cardiology on board, recs appreciated Bilateral Pleural effusion - Abd CT: larger in left that Right - Pulmonology consult, recs appreciated - f/u CXR - afebrile Anasarca - Abd CT: small pelvic ascites, diffuse anasarca, mild mesenteric edema Hypertension - controlled - metoprolol succinated 50 mg ER Hyperlipidemia - resume pravastatin 20 mg po hs GERD - start protonix 40 mg IVP Hiatal hernia - c/w protonix 40 mg IVP Cognitive impairment - aricept Insomnia/anxiety - remeron and aricept DVT prophylaxis - SCDs - Lovenox 40 sc Case seen and examined with Dr Ernesto Ramírez PGY 2
--- NOTE | 2018-07-16 08:24 | CARD ---
APPROVED REPORT Date of service: 07/16/2018 EKG Measurement Heart [id number] <Conclusion> Normal sinus rhythm Prolonged QT Abnormal ECG
[2018-07-16] MEDS: Enoxaparin 30 mg Syringe SC SCH (08:29)
--- NOTE | 2018-07-16 08:48 | CP.PCM.PN ---
<Tremayne Candelaria - Last Filed: 07/16/18 09:09> Subjective - Date & Time of Evaluation Date of Evaluation: 07/16/18 Time of Evaluation: 09:10 - Subjective Subjective: General Surgery Note for Dr. Mendez Patient seen and examined at bedside. She is s/p exploratory laparotomy, lysis of adhesion, and repair of enterotomy x 2 for SBO POD#4. Overnight, patient had episode of afib rvr and delirium again. Her NGT also came out. ICU team ordered CT chest/abd/pelvis and ordered lasix. Urine output was 3185cc/24hr . GCS 14. Objective - Vital Signs/Intake and Output Vital Signs (last 24 hours): Temp Pulse Resp BP Pulse Ox 98.8 F 104 H 20 102/55 L 95 07/16/18 04:41 07/16/18 06:17 07/16/18 06:17 07/16/18 06:17 07/16/18 06:17 Intake and Output: 07/16/18 07/16/18 06:59 18:59 Intake Total 925 Output Total 2950 Balance -2024 - Medications Medications: Current Medications Albuterol/Ipratropium (Duoneb 3 Mg/0.5 Mg (3 Ml) Ud) 3 ml INH RQ6 PRN PRN Reason: Shortness of Breath Last Admin: 07/15/18 21:58 Dose: 3 ml Donepezil HCl (Aricept) 10 mg NG HS [facility] Last Admin: 07/16/18 01:34 Dose: Not Given Enoxaparin Sodium (Lovenox) 30 mg SC DAILY [facility]; Protocol Last Admin: 07/16/18 08:29 Dose: 30 mg Metronidazole (Flagyl 500mg/100ml Ns) 100 mls @ 100 mls/hr IVPB Q8 [facility]; Protocol Last Admin: 07/16/18 08:26 Dose: 100 mls/hr Fluconazole (Diflucan Iv 100 Mg/50 Ml Ns) 50 mls @ 50 mls/hr IVPB DAILY [facility]; Protocol Last Admin: 07/15/18 08:30 Dose: 50 mls/hr Vancomycin HCl 750 mg/ Sodium (Chloride) 250 mls @ 166.667 mls/hr IVPB Q12 [facility]; Protocol Last Admin: 07/15/18 22:00 Dose: 166.667 mls/hr Amiodarone HCl 900 mg/ (Dextrose) 518 mls @ 34.53 mls/hr IVPB .Q15H1M [facility]; Protocol Last Admin: 07/16/18 06:17 Dose: 16.7 mls/hr Ketorolac Tromethamine (Toradol) 30 mg IVP Q6 PRN PRN Reason: Pain, severe (8-10) Last Admin: 07/14/18 19:06 Dose: 30 mg Mirtazapine (Remeron) 30 mg PO [facility] Last Admin: 07/16/18 01:35 Dose: Not Given Ondansetron HCl (Zofran Inj) 4 mg IVP Q6 PRN PRN Reason: Nausea/Vomiting Last Admin: 07/12/18 10:40 Dose: 4 mg Pantoprazole Sodium (Protonix Inj) 40 mg IVP DAILY [facility] Last Admin: 07/16/18 08:29 Dose: 40 mg Pravastatin Sodium (Pravachol) 20 mg PO [facility] Last Admin: 07/16/18 01:35 Dose: Not Given - Labs Labs: 07/16/18 04:20 07/16/18 04:20 PT 16.5 Seconds (9.8-13.1) H 07/12/18 23:17 INR 1.5 07/12/18 23:17 APTT 28.3 Seconds (25.6-37.1) 07/12/18 23:17 - Additional Findings Additional findings: - Constitutional Appears: No Acute Distress - Head Exam Head Exam: ATRAUMATIC, NORMOCEPHALIC - Eye Exam Eye Exam: EOMI, Normal appearance Pupil Exam: PERRL - ENT Exam ENT Exam: Mucous Membranes Moist - Neck Exam Additional comments: RIJ TLC - Respiratory Exam Additional comments: Normal bretahing pattern, 2LNC - Cardiovascular Exam Cardiovascular Exam: REGULAR RHYTHM - GI/Abdominal Exam GI & Abdominal Exam: Soft, Tenderness (surgical site), Normal Bowel Sounds. absent: Distended, Firm, Guarding, Rigid, Rebound Additional comments: dressing clean dry and intact - Extremities Exam Extremities Exam: Normal Capillary Refill - Back Exam Back Exam: absent: CVA tenderness (L), CVA tenderness (R) - Neurological Exam Neurological Exam: Alert, Awake Additional comments: GCS14 - Psychiatric Exam Psychiatric exam: Flat Affect - Skin Skin Exam: Dry, Normal Color, Warm Assessment and Plan - Assessment and Plan (Free Text) Assessment: 87 F who presents with septic shock, acute respiratory failure, elevated lactate, s/p exploratory laparotomy, lysis of adhesion, and repair of enterotomy x 2 for SBO POD#4. Plan: Neuro -GCS14 -HOB > 30 -Pain control -Aricept -Remeron Resp -Maintain SaO2 > 92% -2LNC CV -Maintain MAP > 65 -off vasopressors GI -NPO -Protonix -Zofran PRN -Strict I's & O's -Maintain Urine output 0.5-1 cc/kg/hr -IVF minimal - recommend 40cc/hr at most -Replete electrolytes PRN Endo -Maintain euglycemia 140-180 Heme -Monitor H/H and platelets -Chemical and mechanical DVT ppx ID -ID consult, f/u recommendations -Merrem, Flagyl, Vanco, Fluconazole -Trend WBC <Wilder Bullock - Last Filed: 07/16/18 13:30> Subjective - Subjective Subjective: All medical record entries made by the resident were at my direction. I have reviewed the chart and agree that the record accurately reflects my personal performance of the history, physical exam, and medical decision making. I have also personally directed, reviewed, and agree with resident's instructions and disposition. Objective - Vital Signs/Intake and Output Vital Signs (last 24 hours): Temp Pulse Resp BP Pulse Ox 97.3 F L 92 H 19 134/66 94 L 07/16/18 12:20 07/16/18 12:20 07/16/18 12:20 07/16/18 12:20 07/16/18 12:20 Intake and Output: 07/16/18 07/16/18 06:59 18:59 Intake Total 925 250 Output Total 2950 400 Balance -2024 -150 - Medications Medications: Current Medications Albuterol/Ipratropium (Duoneb 3 Mg/0.5 Mg (3 Ml) Ud) 3 ml INH RQ6 PRN PRN Reason: Shortness of Breath Last Admin: 07/15/18 21:58 Dose: 3 ml Donepezil HCl (Aricept) 10 mg NG HS [facility] Last Admin: 07/16/18 01:34 Dose: Not Given Enoxaparin Sodium (Lovenox) 30 mg SC DAILY [facility]; Protocol Last Admin: 07/16/18 08:29 Dose: 30 mg Metronidazole (Flagyl 500mg/100ml Ns) 100 mls @ 100 mls/hr IVPB Q8 [facility]; Protocol Last Admin: 07/16/18 08:26 Dose: 100 mls/hr Fluconazole (Diflucan Iv 100 Mg/50 Ml Ns) 50 mls @ 50 mls/hr IVPB DAILY [facility]; Protocol Last Admin: 07/16/18 10:43 Dose: 50 mls/hr Vancomycin HCl 750 mg/ Sodium (Chloride) 250 mls @ 166.667 mls/hr IVPB Q12 [facility]; Protocol Last Admin: 07/16/18 10:44 Dose: Not Given Ketorolac Tromethamine (Toradol) 30 mg IVP Q6 PRN PRN Reason: Pain, severe (8-10) Last Admin: 07/14/18 19:06 Dose: 30 mg Mirtazapine (Remeron) 30 mg PO HS [facility] Last Admin: 07/16/18 01:35 Dose: Not Given Ondansetron HCl (Zofran Inj) 4 mg IVP Q6 PRN PRN Reason: Nausea/Vomiting Last Admin: 07/12/18 10:40 Dose: 4 mg Pantoprazole Sodium (Protonix Inj) 40 mg IVP DAILY [facility] Last Admin: 07/16/18 08:29 Dose: 40 mg Pravastatin Sodium (Pravachol) 20 mg PO HS [facility] Last Admin: 07/16/18 01:35 Dose: Not Given - Labs Labs: 07/16/18 04:20 07/16/18 04:20 PT 16.5 Seconds (9.8-13.1) H 07/12/18 23:17 INR 1.5 07/12/18 23:17 APTT 28.3 Seconds (25.6-37.1) 07/12/18 23:17
--- NOTE | 2018-07-16 10:04 | CP.PCM.CON ---
History of Present Illness - History of Present Illness History of Present Illness: Asked to evaluate this 87 year old female fom a respiratory standpoint. She has recently undergone exploratory laparotomy with extensive lysis of adhesion and revision of enterotomies. Had been admitted with abdominal distension and pain with small bowel obstruction. She had multiple abdominal surgeries in the past with presumed left hemicolectomy because of diverticulitis. she has been successfully extubated and placed on O2 via Venti mask at 50% with SpO2 100. A CT chest/abdomen/pelvis was done overnight because of tachycardia, hypoxia and increasing leukocytosis. There are bilateral pleural effusions seen, small right and moderate left with compressive atelectasis of the lower lobes, again more left than right. There is no history of prior pulmonary disease, and she is a never smoker. Past Patient History - Past Medical History & Family History Past Medical History?: Yes - Past Social History Smoking Status: Never Smoked Chewing Tobacco Use: No Cigar Use: No Alcohol: None Drugs: Denies Home Situation {Lives}: Alone - CARDIAC Hx Hypercholesterolemia: Yes Hx Hypertension: Yes - PULMONARY Hx Respiratory Disorders: No - NEUROLOGICAL Hx Dementia: Yes - MUSCULOSKELETAL/RHEUMATOLOGICAL Hx Falls: No - GASTROINTESTINAL Hx Gall Bladder Disease: Yes Hx Gastroesophageal Reflux: Yes Other/Comment: hx abdominal surgeries - PSYCHIATRIC Hx Substance Use: No - SURGICAL HISTORY Hx Cholecystectomy: Yes Other/Comment: Bowel resection, ?mass? - ANESTHESIA Hx Anesthesia: Yes Meds Allergies/Adverse Reactions: Allergies Allergy/AdvReac Type Severity Reaction Status Date / Time acetaminophen [From Percocet] Allergy RASH Verified 07/10/18 13:08 codeine Allergy RASH Verified 07/10/18 13:08 oxycodone [From Percocet] Allergy RASH Verified 07/10/18 13:08 - Medications Medications: Current Medications Albuterol/Ipratropium (Duoneb 3 Mg/0.5 Mg (3 Ml) Ud) 3 ml INH RQ6 PRN PRN Reason: Shortness of Breath Last Admin: 07/15/18 21:58 Dose: 3 ml Donepezil HCl (Aricept) 10 mg NG HS [facility] Last Admin: 07/16/18 01:34 Dose: Not Given Enoxaparin Sodium (Lovenox) 30 mg SC DAILY [facility]; Protocol Last Admin: 07/16/18 08:29 Dose: 30 mg Metronidazole (Flagyl 500mg/100ml Ns) 100 mls @ 100 mls/hr IVPB Q8 [facility]; Protocol Last Admin: 07/16/18 08:26 Dose: 100 mls/hr Fluconazole (Diflucan Iv 100 Mg/50 Ml Ns) 50 mls @ 50 mls/hr IVPB DAILY [facility]; Protocol Last Admin: 07/15/18 08:30 Dose: 50 mls/hr Vancomycin HCl 750 mg/ Sodium (Chloride) 250 mls @ 166.667 mls/hr IVPB Q12 [facility]; Protocol Last Admin: 07/15/18 22:00 Dose: 166.667 mls/hr Amiodarone HCl 900 mg/ (Dextrose) 518 mls @ 34.53 mls/hr IVPB .Q15H1M [facility]; Protocol Last Admin: 07/16/18 06:17 Dose: 16.7 mls/hr Ketorolac Tromethamine (Toradol) 30 mg IVP Q6 PRN PRN Reason: Pain, severe (8-10) Last Admin: 07/14/18 19:06 Dose: 30 mg Mirtazapine (Remeron) 30 mg PO HS [facility] Last Admin: 07/16/18 01:35 Dose: Not Given Ondansetron HCl (Zofran Inj) 4 mg IVP Q6 PRN PRN Reason: Nausea/Vomiting Last Admin: 07/12/18 10:40 Dose: 4 mg Pantoprazole Sodium (Protonix Inj) 40 mg IVP DAILY [facility] Last Admin: 07/16/18 08:29 Dose: 40 mg Pravastatin Sodium (Pravachol) 20 mg PO [facility] Last Admin: 07/16/18 01:35 Dose: Not Given Physical Exam - Additional Findings Additional findings: Presently sedated, breathing comfortably. Neck is supple, trachea midline. No chest wall dullness anteriorly, no subcut emphysema. Breath sounds are well heard anteriorly w/o wheezes or rales. Posteriorly breath sounds are diminished, much more so on the left with bronchial breathing. No audible wheezing, scattered rhonchi posteriorly in both lungs. Heart sounds are well heard, regular rhythm. + dependanrt edema w/o cyanosis, extremities are warm and pink. Results - Vital Signs Recent Vital Signs: Last Vital Signs Temp 98.8 F 07/16/18 04:41 Pulse 104 H 07/16/18 06:17 Resp 20 07/16/18 06:17 BP 102/55 L 07/16/18 06:17 Pulse Ox 95 07/16/18 06:17 - Labs Result Diagrams: 07/16/18 04:20 07/16/18 04:20 Labs: Laboratory Results - last 24 hr 07/15/18 07/15/18 07/15/18 10:43 23:00 23:00 WBC RBC Hgb Hct MCV MCH MCHC RDW Plt Count pCO2 46 H pO2 91 HCO3 23.9 ABG pH 7.34 L ABG Total CO2 26.2 ABG O2 Saturation 98.8 H ABG Base Excess -1.3 Mustapha Test Yes ABG Potassium 3.5 L A-a O2 Difference 208.0 Sodium 138.0 142 Chloride 111.0 H 105 Glucose 115 H Lactate 1.2 FiO2 50.0 Potassium 3.6 Carbon Dioxide 24 Anion Gap 17 BUN 23 H Creatinine 0.8 Est GFR ( Amer) > 60 Est GFR (Non-Af Amer) > 60 Random Glucose 124 H Lactic Acid 1.2 Calcium 8.6 Total Bilirubin AST ALT Alkaline Phosphatase Troponin I 0.2120 H* Total Protein Albumin Globulin Albumin/Globulin Ratio Arterial Blood Potassium 3.5 L Vancomycin Trough 07/16/18 07/16/18 07/16/18 04:20 04:20 04:20 WBC 14.9 H RBC 3.81 Hgb 11.2 L Hct 34.6 MCV 90.7 MCH 29.4 MCHC 32.4 L RDW 15.0 H Plt Count 126 L pCO2 pO2 HCO3 ABG pH ABG Total CO2 ABG O2 Saturation ABG Base Excess Mutsapha Test ABG Potassium A-a O2 Difference Sodium 142 Chloride 106 Glucose Lactate FiO2 Potassium 3.1 L Carbon Dioxide 26 Anion Gap 13 BUN 22 H Creatinine 0.7 Est GFR ( Amer) > 60 Est GFR (Non-Af Amer) > 60 Random Glucose 92 Lactic Acid Calcium 8.0 L Total Bilirubin 0.3 AST 22 ALT 29 Alkaline Phosphatase 103 Troponin I 0.2380 H* Total Protein 4.4 L Albumin 2.3 L Globulin 2.2 Albumin/Globulin Ratio 1.1 Arterial Blood Potassium Vancomycin Trough 07/16/18 06:59 WBC RBC Hgb Hct MCV MCH MCHC RDW Plt Count pCO2 pO2 HCO3 ABG pH ABG Total CO2 ABG O2 Saturation ABG Base Excess Mustapha Test ABG Potassium A-a O2 Difference Sodium Chloride Glucose Lactate FiO2 Potassium Carbon Dioxide Anion Gap BUN Creatinine Est GFR ( Amer) Est GFR (Non-Af Amer) Random Glucose Lactic Acid Calcium Total Bilirubin AST ALT Alkaline Phosphatase Troponin I Total Protein Albumin Globulin Albumin/Globulin Ratio Arterial Blood Potassium Vancomycin Trough 18.9 H Assessment & Plan (1) Pleural effusion Status: Acute Priority: High Comment: Bilaterally, left more than right. (2) Atelectasis Status: Acute Priority: High Comment: Passive compression of lower lobes bilaterally, more left than right. (3) Acute respiratory insufficiency Status: Acute Priority: High Comment: Compensated with supplemental oxygen. - Assessment and Plan (Free Text) Plan: Follow up chest x-ray requested post diuresis to evaluate degree of residual effusions. May need thoracentesis on the left if fluid not decreasing. Reduce oxygen to 40% Venti mask. Continue current antibiotic regimen. - Date & Time Date: 07/16/18 Time: 10:28
--- NOTE | 2018-07-16 10:20 | CP.PCM.PN ---
Subjective - Date & Time of Evaluation Date of Evaluation: 07/16/18 Time of Evaluation: 09:30 - Subjective Subjective: The patient was particularly confused last night and quite disoriented. She was given Haldol and is sedated at this point. She displays steady sinus rhythm at 74 bpm regular and a blood pressure of 130/70 mmHg. She has a good urine output. Electrocardiogram taken yesterday evening and this morning shows sinus rhythm with no evolving ST-T abnormalities or Q waves indicative of recent myocardial infarction. Troponins obtained this morning were still elevated which is natural for a recent myocardial infarction less than 10 days old. Her echocardiogram obtained following her infarct showed preserved left ventricular systolic function. The patient is stable from cardiovascular point of view. Amiodarone would be discontinued. Objective - Vital Signs/Intake and Output Vital Signs (last 24 hours): Temp Pulse Resp BP Pulse Ox 99.0 F 87 24 104/56 L 100 07/16/18 08:00 07/16/18 10:00 07/16/18 10:00 07/16/18 10:00 07/16/18 10:00 Intake and Output: 07/16/18 07/16/18 06:59 18:59 Intake Total 925 150 Output Total 2950 Balance -2024 150 - Medications Medications: Current Medications Albuterol/Ipratropium (Duoneb 3 Mg/0.5 Mg (3 Ml) Ud) 3 ml INH RQ6 PRN PRN Reason: Shortness of Breath Last Admin: 07/15/18 21:58 Dose: 3 ml Donepezil HCl (Aricept) 10 mg NG HS [facility] Last Admin: 07/16/18 01:34 Dose: Not Given Enoxaparin Sodium (Lovenox) 30 mg SC DAILY [facility]; Protocol Last Admin: 07/16/18 08:29 Dose: 30 mg Metronidazole (Flagyl 500mg/100ml Ns) 100 mls @ 100 mls/hr IVPB Q8 [facility]; Protocol Last Admin: 07/16/18 08:26 Dose: 100 mls/hr Fluconazole (Diflucan Iv 100 Mg/50 Ml Ns) 50 mls @ 50 mls/hr IVPB DAILY [facility]; Protocol Last Admin: 07/15/18 08:30 Dose: 50 mls/hr Vancomycin HCl 750 mg/ Sodium (Chloride) 250 mls @ 166.667 mls/hr IVPB Q12 [facility]; Protocol Last Admin: 07/15/18 22:00 Dose: 166.667 mls/hr Ketorolac Tromethamine (Toradol) 30 mg IVP Q6 PRN PRN Reason: Pain, severe (8-10) Last Admin: 07/14/18 19:06 Dose: 30 mg Mirtazapine (Remeron) 30 mg PO HS [facility] Last Admin: 07/16/18 01:35 Dose: Not Given Ondansetron HCl (Zofran Inj) 4 mg IVP Q6 PRN PRN Reason: Nausea/Vomiting Last Admin: 07/12/18 10:40 Dose: 4 mg Pantoprazole Sodium (Protonix Inj) 40 mg IVP DAILY [facility] Last Admin: 07/16/18 08:29 Dose: 40 mg Pravastatin Sodium (Pravachol) 20 mg PO HS [facility] Last Admin: 07/16/18 01:35 Dose: Not Given - Labs Labs: 07/16/18 04:20 07/16/18 04:20 PT 16.5 Seconds (9.8-13.1) H 07/12/18 23:17 INR 1.5 07/12/18 23:17 APTT 28.3 Seconds (25.6-37.1) 07/12/18 23:17
[2018-07-16] MEDS: Fluconazole IV 100mg/50 ml NS 50 ML IVPB SCH (10:43)
--- NOTE | 2018-07-16 10:53 | CP.PCM.PN ---
Subjective - Date & Time of Evaluation Date of Evaluation: 07/16/18 Time of Evaluation: 10:53 - Subjective Subjective: ID Note. pt. seen and examined in ICu today. Pt. more lethargic today. as per nurse pt. was very agitated last night and was given a dose of haldol. her family is at her bedside too. Objective - Vital Signs/Intake and Output Vital Signs (last 24 hours): Temp Pulse Resp BP Pulse Ox 99.0 F 87 24 104/56 L 100 07/16/18 08:00 07/16/18 10:00 07/16/18 10:00 07/16/18 10:00 07/16/18 10:00 Intake and Output: 07/16/18 07/16/18 06:59 18:59 Intake Total 925 150 Output Total 2950 Balance -2024 150 - Medications Medications: Current Medications Albuterol/Ipratropium (Duoneb 3 Mg/0.5 Mg (3 Ml) Ud) 3 ml INH RQ6 PRN PRN Reason: Shortness of Breath Last Admin: 07/15/18 21:58 Dose: 3 ml Donepezil HCl (Aricept) 10 mg NG HS [facility] Last Admin: 07/16/18 01:34 Dose: Not Given Enoxaparin Sodium (Lovenox) 30 mg SC DAILY [facility]; Protocol Last Admin: 07/16/18 08:29 Dose: 30 mg Metronidazole (Flagyl 500mg/100ml Ns) 100 mls @ 100 mls/hr IVPB Q8 [facility]; Protocol Last Admin: 07/16/18 08:26 Dose: 100 mls/hr Fluconazole (Diflucan Iv 100 Mg/50 Ml Ns) 50 mls @ 50 mls/hr IVPB DAILY [facility]; Protocol Last Admin: 07/16/18 10:43 Dose: 50 mls/hr Vancomycin HCl 750 mg/ Sodium (Chloride) 250 mls @ 166.667 mls/hr IVPB Q12 [facility]; Protocol Last Admin: 07/16/18 10:44 Dose: Not Given Ketorolac Tromethamine (Toradol) 30 mg IVP Q6 PRN PRN Reason: Pain, severe (8-10) Last Admin: 07/14/18 19:06 Dose: 30 mg Mirtazapine (Remeron) 30 mg PO HS [facility] Last Admin: 07/16/18 01:35 Dose: Not Given Ondansetron HCl (Zofran Inj) 4 mg IVP Q6 PRN PRN Reason: Nausea/Vomiting Last Admin: 07/12/18 10:40 Dose: 4 mg Pantoprazole Sodium (Protonix Inj) 40 mg IVP DAILY [facility] Last Admin: 07/16/18 08:29 Dose: 40 mg Pravastatin Sodium (Pravachol) 20 mg PO HS [facility] Last Admin: 07/16/18 01:35 Dose: Not Given - Labs Labs: 07/16/18 04:20 07/16/18 04:20 PT 16.5 Seconds (9.8-13.1) H 07/12/18 23:17 INR 1.5 07/12/18 23:17 APTT 28.3 Seconds (25.6-37.1) 07/12/18 23:17 - Additional Findings Additional findings: Constitutional Appears: No Acute Distress Additional comments: intubated but is awake and responsive - Head Exam Head Exam: ATRAUMATIC - Eye Exam Eye Exam: EOMI, PERRL - Neck Exam Neck exam: Positive for: Full Rom - Respiratory Exam Additional comments: on the vent breath sounds heard b/l - Cardiovascular Exam Cardiovascular Exam: RRR, +S1, +S2 - GI/Abdominal Exam GI & Abdominal Exam: Soft Additional comments: mid lower abdomen surgical site with sutures in place, no more packing no discharge, no erythema no tenderness soft - Extremities Exam Extremities exam: Positive for: normal inspection - Neurological Exam Neurological exam: awake but drowsy today Microbiology 07/13/18 17:00 Blood-Venous Blood Culture - Preliminary NO GROWTH AFTER 3 DAYS 07/13/18 16:00 Blood-Venous Blood Culture - Preliminary NO GROWTH AFTER 3 DAYS 07/14/18 17:00 Blood-Venous Blood Culture - Preliminary NO GROWTH AFTER 48 HOURS 07/14/18 15:58 Blood-Venous Blood Culture - Preliminary NO GROWTH AFTER 48 HOURS 07/14/18 16:00 Sputum Gram Stain - Final 07/14/18 16:00 Sputum Sputum Culture - Final No growth. 07/13/18 17:21 Urine,Elizondo Urine Culture - Final No Growth (<1,000 CFU/ML) 07/10/18 19:55 Urine Random Urine Culture - Final Gram Negative [place] Assessment and Plan (1) Small bowel obstruction Status: Acute (2) Sepsis Status: Acute - Assessment and Plan (Free Text) Assessment: A/P- 87 year old female with multiple past medical history and s/p past hemicolectomy and reversal of colostomy who was admitted with abd . pain and found to have SBO and is POD #1 s/p Exploratory laparotomy, extenive lysis of adhesions, repair of enterotomies x 2, washout. extubated and off pressors. afebrile leukocytosis trending down today. blood cx- neg x 4 Initial urine cx- GNR prelim sputum cx- neg repeat urine cx- neg ABD ct and CXR report noted-pleural effusion plan- advise to continue empiric broad coverage with meropenem, flagyl,vanco and fluconazole pending further results.day #4 but hold vanco today since trough was high. recheck tomm am trough and if < 15 can redose. keep vanco trough <15. monitor wbc. all above d/w [employer] . Critical care time spent 40 minutes.
[2018-07-16] MEDS ORDERED: Lidocaine Hydrochloride 5 ML INJ ONE (11:48)
--- NOTE | 2018-07-16 12:19 | PCM.SURG1 ---
Surgeon's Initial Post Op Note - Surgeon's Notes Surgeon: Brien Duque MD Spare Fixer: NONE Type of Anesthesia: Local Pre-Operative Diagnosis: Poor venous access Operative Findings: Patent right basilic vein. Post-Operative Diagnosis: Poor venous access Operation Performed: Double lumen picc right basilic vein, 35 cm. Tip in SVC. Removal on nontunneled right IJV catheter. Specimen/Specimens Removed: NONE Estimated Blood Loss: EBL {In ML}: 2 Blood Products Given: N/A Drains Used: No Drains Post-Op Condition: Poor Date of Surgery/Procedure: 07/16/18 Time of Surgery/Procedure: 12:19
--- NOTE | 2018-07-16 12:56 | RAD ---
HISTORY: SOB COMPARISON: Chest x-ray performed 07/14/18 TECHNIQUE: Chest, one view. FINDINGS: Examination limited by habitus and hypoinflation. Right IJ approach central venous catheter extends expected location of the right atrium. LUNGS: Small bilateral pleural effusions and associated consolidations. Moderate pulmonary venous congestion. No definite pneumothorax. CARDIOVASCULAR: Cardiomegaly. Dense atherosclerotic calcifications of the aorta. OSSEOUS STRUCTURES: Osseous demineralization. Degenerative changes. VISUALIZED UPPER ABDOMEN: Unremarkable. OTHER FINDINGS: None. IMPRESSION: Right IJ approach central venous catheter extends expected location of the right atrium. Cardiomegaly. Dense atherosclerotic calcifications. Small bilateral pleural effusions and associated consolidations. Moderate pulmonary venous congestion.
--- NOTE | 2018-07-16 13:08 | VASCULAR ---
PROCEDURE: Date of procedure: 07/16/2018 Procedure: 1. Placement of a right arm PICC with ultrasound and fluoroscopic guidance, CPT 47326 2. PICC tip confirmation with spot radiograph and is in the superior vena cava Medications: 1 percent lidocaine Total Fluoro time: 4.9 Seconds Radiation: 0.37 MGy EBL: 2 cc HISTORY: Poor venous access TECHNIQUE: Following informed consent and procedure time-out, the patient was placed supine on the interventional table and the right arm prepped and draped in the usual sterile fashion. Ultrasound showed a patent and compressible right basilic vein. After the skin was anesthetized with lidocaine, the basilic vein was accessed with micro micropuncture technique using ultrasound guidance. A guidewire was then advanced under fluoroscopic guidance into the superior vena cava. An image documenting ultrasound guidance for vascular access was permanently saved. The length of the double lumen 5 Haitian PICC was trimmed to 35 centimeters and advanced through a peel-away sheath. The PICC was position with tip of PICC confirm a spot radiograph the superior vena cava. The PICC was secured to the patient's skin. The PICC was flushed. A biopatch and sterile dressing was applied. IMPRESSION: Placement of a double lumen 5 Haitian PICC trimmed to 35 centimeters via right basilic vein. The tip of the PICC is confirmed with spot radiograph and is in the superior vena cava.
--- NOTE | 2018-07-16 13:48 | RAD ---
Date of service: 07/16/2018 HISTORY: pleural effusion COMPARISON: Portable chest 07/15/1909 02 p.m.. FINDINGS: LUNGS: Pulmonary vascular congestion pattern is likely not significantly changed in the interval. Stable bilateral pleural effusions are seen once again with left hemidiaphragm elevation again evident. Underlying airspace disease not excluded at the bases. No pneumothorax bilaterally. PLEURA: As above. CARDIOVASCULAR: Calcific atherosclerotic changes are seen related to the thoracic aorta. Cardiac size appears stable. CHF pattern discussed above. Right central venous dialysis catheter unchanged in position. No pulmonary vascular congestion. OSSEOUS STRUCTURES: No significant abnormalities. VISUALIZED UPPER ABDOMEN: Normal. OTHER FINDINGS: None. IMPRESSION: Stable CHF pattern with no interval change in bilateral pleural effusions. Underlying airspace disease not excluded the bilateral bases. Elevated left hemidiaphragm stable.
--- NOTE | 2018-07-16 14:55 | CP.CCUPN ---
CCU Subjective - Physician Review Subjective (Free Text): 07/15/18 15:25 The patient was Seen/interviewed and examined by me at the bedside during ICU round, Medical records reviewed and Management issues were discussed and formulated with the house staff. Events reviewed 87 Years old Female PMHx HTN, Hyperlipidemia, GERD, insomnia, dementia, diverticulitis s/p hemicolectomy s/p colostomy reversal, ventral hernia repair. p/w SBO, taken to OR for SAILAJA, c/b 2 enterotomies. Went into SVT in PACU and was reintubated. Admitted to ICU for post-op monitoring. ICU course was noted for hypotension shock likely septic, requiring vasopressors with Levophed and vasopressin infusion Vasopressors were successfully weaned off and the patient was successfully extubated yesterday Overnight patient was confused requiring IV Haldol (also received 1 mg of Ativan IV the night before), Also the patient was noted to be hypertensive and more dyspneic and agitated, On physical exam she was tachycardic and hypoxemic with possible evidence of volume overload/acute flash pulmonary edema, stat labs including tropes chest x-ray was ordered Chest x-ray consistent with fluid overload and a small bilateral pleural effusion, patient received Nitropaste and 40 mg of IV Lasix in addition to the Haldol, she had about 3 L of urine output overnight, her respiratory status gradually slowly improved over the following few hours Labs were noted for elevated troponin which possibly from the acute event of NSTEMI postoperatively at that time she did not have chest pain this morning initially she was lethargic minimally responsive and throughout the morning mental status improved Afebrile over the next 24 hours Currently she is comfortable, in no acute distress Amiodarone drip was discontinued this morning Patient is scheduled for PICC line placement today, and the central line in the neck will be removed CCU Objective - Vital Signs / Intake & Output Vital Signs (Last 4 hours): Vital Signs Temp Pulse Resp BP Pulse Ox 07/16/18 12:20 97.3 F L 92 H 19 134/66 94 L Intake and Output (Last 8hrs): Intake & Output 07/15/18 07/16/18 07/16/18 22:59 06:59 14:59 Intake Total 695 925 250 Output Total 85 2950 400 Balance 610 -5 -150 Weight 163 lb Intake: IV 475 450 Intake, Piggyback 200 450 250 Oral 0 Tube Feeding 20 25 Free Water Flush 0 Output: Urine 85 2950 400 Urethral (Huang) 85 2950 400 - Physical Exam Head: Positive for: Atraumatic, Normocephalic Pupils: Positive for: PERRL Extroacular Muscles: Positive for: EOMI Conjunctiva: Positive for: Normal Mouth: Positive for: Moist Mucous Membranes Neck: Positive for: Normal Range of Motion Respiratory/Chest: Positive for: Good Air Exchange, Decreased Breath Sounds Cardiovascular: Positive for: Irregular Rhythm, Tachycardic Abdomen: Positive for: Normal Bowel Sounds. Negative for: Tenderness Upper Extremity: Positive for: Normal Inspection Lower Extremity: Positive for: Normal Inspection Psychiatric: Positive for: Alert - Medications Active Medications: Active Medications Generic Name Dose Route Start Last Admin Trade Name Freq PRN Reason Stop Dose Admin Albuterol/Ipratropium 3 ml 07/15/18 21:16 07/15/18 21:58 Duoneb 3 Mg/0.5 Mg (3 Ml) Ud INH 3 ml RQ6 PRN Administration Shortness of Breath Donepezil HCl 10 mg 07/10/18 22:00 07/16/18 01:34 Aricept NG Not Given HS LEILA Enoxaparin Sodium 30 mg 07/13/18 12:15 07/16/18 08:29 Lovenox SC 30 mg DAILY LEILA Administration Protocol Metronidazole 100 mls @ 100 mls/hr 07/12/18 18:45 07/16/18 08:26 Flagyl 500mg/100ml Ns IVPB 100 mls/hr Q8 LEILA Administration Protocol Fluconazole 50 mls @ 50 mls/hr 07/13/18 12:00 07/16/18 10:43 Diflucan Iv 100 Mg/50 Ml Ns IVPB 50 mls/hr DAILY LEILA Administration Protocol Vancomycin HCl 750 mg/ Sodium 250 mls @ 166.667 mls/hr 07/13/18 12:00 07/16/18 10:44 Chloride IVPB Not Given Q12 LEILA Protocol Ketorolac Tromethamine 30 mg 07/10/18 19:16 07/14/18 19:06 Toradol IVP 30 mg Q6 PRN Administration Pain, severe (8-10) Mirtazapine 30 mg 07/10/18 22:00 07/16/18 01:35 Remeron PO Not Given HS LEILA Ondansetron HCl 4 mg 07/10/18 19:05 07/12/18 10:40 Zofran Inj IVP 4 mg Q6 PRN Administration Nausea/Vomiting Pantoprazole Sodium 40 mg 07/11/18 09:00 07/16/18 08:29 Protonix Inj IVP 40 mg DAILY LEILA Administration Pravastatin Sodium 20 mg 07/10/18 22:00 07/16/18 01:35 Pravachol PO Not Given HS LEILA - Patient Studies Lab Studies: Microbiology Studies 07/14/18 16:00 Gram Stain - Final Sputum Sputum Culture - Final No growth. 07/13/18 17:00 Blood Culture - Preliminary Blood-Venous NO GROWTH AFTER 48 HOURS 07/13/18 16:00 Blood Culture - Preliminary Blood-Venous NO GROWTH AFTER 48 HOURS 07/14/18 17:00 Blood Culture - Preliminary Blood-Venous NO GROWTH AFTER 24 HOURS 07/14/18 15:58 Blood Culture - Preliminary Blood-Venous NO GROWTH AFTER 24 HOURS 07/13/18 17:21 Urine Culture - Final Urine,Huang No Growth (<1,000 CFU/ML) Lab Studies 07/16/18 07/16/18 07/16/18 Range/Units 06:59 04:20 04:20 WBC (4.8-10.8) K/uL RBC (3.80-5.20) Mil/uL Hgb (12.0-16.0) g/dL Hct (34.0-47.0) % MCV (81.0-99.0) fl MCH (27.0-31.0) pg MCHC (33.0-37.0) g/dL RDW (11.5-14.5) % Plt Count (130-400) K/uL Sodium 142 (132-148) mmol/l Potassium 3.1 L (3.6-5.0) MMOL/L Chloride 106 (98-107) mmol/L Carbon Dioxide 26 (22-30) mmol/L Anion Gap 13 (10-20) BUN 22 H (7-17) mg/dl Creatinine 0.7 (0.7-1.2) mg/dl Est GFR ( Amer) > 60 Est GFR (Non-Af Amer) > 60 Random Glucose 92 (65-105) mg/dL Lactic Acid (0.7-2.1) mmol/L Calcium 8.0 L (8.4-10.2) mg/dL Total Bilirubin 0.3 (0.2-1.3) mg/dl AST 22 (14-36) U/L ALT 29 (9-52) U/L Alkaline Phosphatase 103 (38-126) U/L Troponin I 0.2380 H* (0.00-0.120) ng/mL Total Protein 4.4 L (6.3-8.2) G/DL Albumin 2.3 L (3.5-5.0) g/dL Globulin 2.2 (2.2-3.9) gm/dL Albumin/Globulin Ratio 1.1 (1.0-2.1) Vancomycin Trough 18.9 H (5.0-10.0) ug/mL 07/16/18 07/15/18 07/15/18 Range/Units 04:20 23:00 23:00 WBC 14.9 H (4.8-10.8) K/uL RBC 3.81 (3.80-5.20) Mil/uL Hgb 11.2 L (12.0-16.0) g/dL Hct 34.6 (34.0-47.0) % MCV 90.7 (81.0-99.0) fl MCH 29.4 (27.0-31.0) pg MCHC 32.4 L (33.0-37.0) g/dL RDW 15.0 H (11.5-14.5) % Plt Count 126 L (130-400) K/uL Sodium 142 (132-148) mmol/l Potassium 3.6 (3.6-5.0) MMOL/L Chloride 105 (98-107) mmol/L Carbon Dioxide 24 (22-30) mmol/L Anion Gap 17 (10-20) BUN 23 H (7-17) mg/dl Creatinine 0.8 (0.7-1.2) mg/dl Est GFR ( Amer) > 60 Est GFR (Non-Af Amer) > 60 Random Glucose 124 H (65-105) mg/dL Lactic Acid 1.2 (0.7-2.1) mmol/L Calcium 8.6 (8.4-10.2) mg/dL Total Bilirubin (0.2-1.3) mg/dl AST (14-36) U/L ALT (9-52) U/L Alkaline Phosphatase (38-126) U/L Troponin I 0.2120 H* (0.00-0.120) ng/mL Total Protein (6.3-8.2) G/DL Albumin (3.5-5.0) g/dL Globulin (2.2-3.9) gm/dL Albumin/Globulin Ratio (1.0-2.1) Vancomycin Trough (5.0-10.0) ug/mL Laboratory Results - last 24 hr 07/15/18 07/15/18 07/16/18 23:00 23:00 04:20 WBC 14.9 H RBC 3.81 Hgb 11.2 L Hct 34.6 MCV 90.7 MCH 29.4 MCHC 32.4 L RDW 15.0 H Plt Count 126 L Sodium 142 Potassium 3.6 Chloride 105 Carbon Dioxide 24 Anion Gap 17 BUN 23 H Creatinine 0.8 Est GFR ( Amer) > 60 Est GFR (Non-Af Amer) > 60 Random Glucose 124 H Lactic Acid 1.2 Calcium 8.6 Total Bilirubin AST ALT Alkaline Phosphatase Troponin I 0.2120 H* Total Protein Albumin Globulin Albumin/Globulin Ratio Vancomycin Trough 07/16/18 07/16/18 07/16/18 04:20 04:20 06:59 WBC RBC Hgb Hct MCV MCH MCHC RDW Plt Count Sodium 142 Potassium 3.1 L Chloride 106 Carbon Dioxide 26 Anion Gap 13 BUN 22 H Creatinine 0.7 Est GFR ( Amer) > 60 Est GFR (Non-Af Amer) > 60 Random Glucose 92 Lactic Acid Calcium 8.0 L Total Bilirubin 0.3 AST 22 ALT 29 Alkaline Phosphatase 103 Troponin I 0.2380 H* Total Protein 4.4 L Albumin 2.3 L Globulin 2.2 Albumin/Globulin Ratio 1.1 Vancomycin Trough 18.9 H Radiology Impressions: Radiology Impressions PICC Line Insertion 07/15/18 14:05 IMPRESSION: Chest X-Ray 07/15/18 21:40 IMPRESSION: Right IJ approach central venous catheter extends expected location of the right atrium. Cardiomegaly. Dense atherosclerotic calcifications. Small bilateral pleural effusions and associated consolidations. Moderate pulmonary venous congestion. Chest X-Ray 07/16/18 10:01 IMPRESSION: Stable CHF pattern with no interval change in bilateral pleural effusions. Underlying airspace disease not excluded the bilateral bases. Elevated left hemidiaphragm stable. EKG/Cardiology Studies: Cardiology / EKG Studies 07/16/18 08:00 EKG [ELECTROCARDIOGRAM] Routine Comment: Abnormal EKG last night Mode Of Transportation: PORTABLE Reason For Exam: Re-evaluate Fingerstick Blood Sugar Results: 101 Critical Care Progress Note - Nutrition Nutrition: Nutrition Category Date Time Status NPO Diet [DIET] Diets 07/10/18 Dinner Active Assessment/Plan (1) Septic shock Current Visit: Yes Status: Acute Priority: High Comment: septic shock Improving, now off levophed and vasopressin sepsis from recent SBO, s/p SAILAJA with enterotomies and fecal contamination of abdomen. Continue Meropenem and Flagyl. (2) Postoperative acute respiratory failure Current Visit: Yes Status: Acute Priority: High Comment: Also left pleural effusion from fluid overload Continue Antibiotics Gentle diuresis Nebs CXR, ABG, Frequent neuro check HOB maintained at 30 degrees. Aggressive pulmonary toilet, chest PT, suctioning (3) Small bowel obstruction Current Visit: Yes Status: Acute Priority: High (4) Afib Current Visit: Yes Status: Acute Priority: High Comment: Received amiodarone bolus, Cadrioloy evaluation appretiated (5) Non Q wave myocardial infarction Current Visit: Yes Status: Acute Priority: High - Assessment and Plan (Free Text) Assessment: HOB maintained at 30 degrees. GI/DVT PPX DVT PPX - lovenox GI PPX - protonix huang for strict I/O's during acute illness Code status - full code Critical Care time spent 38 minutes
--- NOTE | 2018-07-16 15:03 | CT ---
Date of service: 07/16/2018 PROCEDURE: CT Chest, Abdomen and Pelvis without intravenous contrast HISTORY: abn CXR, tachycardia, hypoxia COMPARISON: Abdomen pelvis CT 07/10/2018 and thoracic spine radiographs 07/10/2014. TECHNIQUE: Radiation dose: Total exam DLP = 1033.16 mGy-cm. This CT exam was performed using one or more of the following dose reduction techniques: Automated exposure control, adjustment of the mA and/or kV according to patient size, and/or use of iterative reconstruction technique. FINDINGS: CT CHEST WITHOUT CONTRAST: LUNGS: No definite masses appreciated however the dependent bilateral lungs are affected by pleural effusions resulting most likely in compressive atelectasis with some dependent atelectasis likely intermixed as well. Underlying pneumonia is not completely excluded but is not favored. Nondependent lung appears quite well aerated in fact. Central airways are remarkable only for lax posterior wall at the trachea at the level of the thoracic inlet which is otherwise patent. Crescentic shape to the lumen results which is quite narrowed. Clinically correlate further. Underlying mass is not excluded here. Esophagus may be thick-walled at the same level causing extrinsic compression on the posterior mid to lower trachea. MEDIASTINUM: Unremarkable. Normal caliber aorta. Pulmonary arterial trunk is upper limits normal size at 3.3 cm suspicious but not definitive for pulmonary artery hypertension. Clinically correlate further. Cardiomegaly is noted. LYMPH NODES: Unremarkable. PLEURA: [id number] right and severe left pleural effusion identified. No pericardial effusion identified.. BONES: There is a limited amount of height loss at the T6 vertebral body which has lucent foci within the core. Peripheral margins of this vertebral body are somewhat more lucent than normal though in a slightly heterogeneous fashion. Irregular margins are somewhat prominent in this vertebral body and Paget's disease is a definite possibility. On further review of the patient's prior thoracic spine radiograph from 07/10/2014, this is likely unchanged and favors Paget's disease or other static bony proliferative disorder more than metastatic disease significantly. OTHER FINDINGS: None. CT ABDOMEN AND PELVIS: LIVER: Unremarkable. No gross lesion or ductal dilatation. GALLBLADDER AND BILE DUCTS: Prior cholecystectomy again suggested. PANCREAS: Unremarkable. No gross lesion or ductal dilatation. SPLEEN: Unremarkable. ADRENALS: Unremarkable. No mass. KIDNEYS AND URETERS: The parapelvic cysts reiterated simulating hydronephrosis bilaterally. No significant interval change bilaterally. VASCULATURE: Nonaneurysmal abdominal aortic calcific atherosclerotic changes are identified. BOWEL: Limited oral contrast material partially opacifies the ascending through proximal transverse colon segments with interval partial decompression of small bowel. Limited residual dilatation is seen within central and upper abdominal small bowel loops with skin zeke at the anterior abdominal wall suggestive of prior surgical procedure and likely limited residual ileus rather than bowel obstruction. Clinical and radiographic follow-up advised nevertheless. No free intrarenal gas collection evident. Limited lower abdomen/pelvic ascites evident. Scattered colonic diverticular changes are appreciate without definite diverticulitis. Thickening of its segment of the distal sigmoid colon is appreciated in the interval, of uncertain origin. Consider potential interval inflammatory or infectious change with ischemia not favored but not excluded completely. APPENDIX: Identified. No definite CT evidence of appendicitis. PERITONEUM: See bowel section above. LYMPH NODES: Unremarkable. No enlarged lymph nodes. BLADDER: Decompressed by Elizondo catheter. REPRODUCTIVE: Fibroid uterine changes reiterated. BONES: Advanced upper lumbar multilevel spondylosis. No lytic or blastic bony lesions appreciated similar to that seen at the inferior thoracic spine at T6. OTHER FINDINGS: None. IMPRESSION: 1. Mildly large left and mild right pleural effusions exert extensive compression atelectasis at the bilateral lower lobes with pneumonia difficult to exclude underlying these findings but not favored either. 2. Stable cardiomegaly. No pericardial effusion. 3. Lax posterior tracheal wall is seen at the central inferior trachea near the thoracic inlet. Extrinsic compression is not excluded, even possibly on the basis of esophageal thickening here. Clinically correlate further. 4. Diminishing small bowel dilatation with oral contrast now present in the ascending colon and proximal transverse segments. Limited postoperative changes seen the abdomen status post prior laparotomy. 5. Prior cholecystectomy again evident. 6. Extensive colonic diverticulosis without definite diverticulitis. Note is made of distal sigmoid mural thickening clearly identified on the prior CT in this could reflect interval inflammatory or infectious process with ischemia less likely. 7. Note is made of heterogeneous density involving the T6 vertebral body potentially reflecting Paget's disease or other benign productive bony process.
[2018-07-17] MEDS: metroNIDAZOLE 500mg/100ml NS 100 ML IVPB SCH ×3 (00:20→16:14)
--- NOTE | 2018-07-17 01:09 | CP.PCM.PN ---
Subjective - Date & Time of Evaluation Date of Evaluation: 07/15/18 Time of Evaluation: 10:00 - Subjective Subjective: Extubated Objective - Vital Signs/Intake and Output Vital Signs (last 24 hours): Temp Pulse Resp BP Pulse Ox 99.7 F H 73 23 130/69 98 07/17/18 00:00 07/17/18 00:00 07/17/18 00:00 07/17/18 00:00 07/17/18 00:00 Intake and Output: 07/16/18 07/17/18 18:59 06:59 Intake Total 350 100 Output Total 600 225 Balance -250 -125 - Medications Medications: Current Medications Albuterol/Ipratropium (Duoneb 3 Mg/0.5 Mg (3 Ml) Ud) 3 ml INH RQ6 PRN PRN Reason: Shortness of Breath Last Admin: 07/15/18 21:58 Dose: 3 ml Donepezil HCl (Aricept) 10 mg NG HS LEILA Last Admin: 07/16/18 22:50 Dose: Not Given Enoxaparin Sodium (Lovenox) 30 mg SC DAILY LEILA; Protocol Last Admin: 07/16/18 08:29 Dose: 30 mg Metronidazole (Flagyl 500mg/100ml Ns) 100 mls @ 100 mls/hr IVPB Q8 LEILA; Protocol Last Admin: 07/17/18 00:20 Dose: 100 mls/hr Fluconazole (Diflucan Iv 100 Mg/50 Ml Ns) 50 mls @ 50 mls/hr IVPB DAILY LEILA; Protocol Last Admin: 07/16/18 10:43 Dose: 50 mls/hr Vancomycin HCl 750 mg/ Sodium (Chloride) 250 mls @ 166.667 mls/hr IVPB Q12 LEILA; Protocol Last Admin: 07/16/18 10:44 Dose: Not Given Ketorolac Tromethamine (Toradol) 30 mg IVP Q6 PRN PRN Reason: Pain, severe (8-10) Last Admin: 07/14/18 19:06 Dose: 30 mg Mirtazapine (Remeron) 30 mg PO HS LEILA Last Admin: 07/16/18 22:50 Dose: Not Given Ondansetron HCl (Zofran Inj) 4 mg IVP Q6 PRN PRN Reason: Nausea/Vomiting Last Admin: 07/12/18 10:40 Dose: 4 mg Pantoprazole Sodium (Protonix Inj) 40 mg IVP DAILY [facility] Last Admin: 07/16/18 08:29 Dose: 40 mg Pravastatin Sodium (Pravachol) 20 mg PO HS [facility] Last Admin: 07/16/18 22:50 Dose: Not Given - Labs Labs: 07/16/18 04:20 07/16/18 04:20 PT 16.5 Seconds (9.8-13.1) H 07/12/18 23:17 INR 1.5 07/12/18 23:17 APTT 28.3 Seconds (25.6-37.1) 07/12/18 23:17 - Head Exam Head Exam: ATRAUMATIC - Eye Exam Eye Exam: Normal appearance - ENT Exam ENT Exam: Mucous Membranes Dry - Respiratory Exam Respiratory Exam: Decreased Breath Sounds - Cardiovascular Exam Cardiovascular Exam: +S1, +S2 - GI/Abdominal Exam GI & Abdominal Exam: Normal Bowel Sounds Assessment and Plan (1) Thrombocytopenia Assessment & Plan: mild cont. to monitor Status: Acute (2) Coagulopathy Assessment & Plan: nutritional Status: Acute
--- NOTE | 2018-07-17 01:14 | CP.PCM.PN ---
Subjective - Date & Time of Evaluation Date of Evaluation: 07/16/18 Time of Evaluation: 16:00 - Subjective Subjective: More sedated today. Objective - Vital Signs/Intake and Output Vital Signs (last 24 hours): Temp Pulse Resp BP Pulse Ox 99.7 F H 73 23 130/69 98 07/17/18 00:00 07/17/18 00:00 07/17/18 00:00 07/17/18 00:00 07/17/18 00:00 Intake and Output: 07/16/18 07/17/18 18:59 06:59 Intake Total 350 100 Output Total 600 225 Balance -250 -125 - Medications Medications: Current Medications Albuterol/Ipratropium (Duoneb 3 Mg/0.5 Mg (3 Ml) Ud) 3 ml INH RQ6 PRN PRN Reason: Shortness of Breath Last Admin: 07/15/18 21:58 Dose: 3 ml Donepezil HCl (Aricept) 10 mg NG HS LEILA Last Admin: 07/16/18 22:50 Dose: Not Given Enoxaparin Sodium (Lovenox) 30 mg SC DAILY LEILA; Protocol Last Admin: 07/16/18 08:29 Dose: 30 mg Metronidazole (Flagyl 500mg/100ml Ns) 100 mls @ 100 mls/hr IVPB Q8 LEILA; Protocol Last Admin: 07/17/18 00:20 Dose: 100 mls/hr Fluconazole (Diflucan Iv 100 Mg/50 Ml Ns) 50 mls @ 50 mls/hr IVPB DAILY LEILA; Protocol Last Admin: 07/16/18 10:43 Dose: 50 mls/hr Vancomycin HCl 750 mg/ Sodium (Chloride) 250 mls @ 166.667 mls/hr IVPB Q12 LEILA; Protocol Last Admin: 07/16/18 10:44 Dose: Not Given Ketorolac Tromethamine (Toradol) 30 mg IVP Q6 PRN PRN Reason: Pain, severe (8-10) Last Admin: 07/14/18 19:06 Dose: 30 mg Mirtazapine (Remeron) 30 mg PO HS LEILA Last Admin: 07/16/18 22:50 Dose: Not Given Ondansetron HCl (Zofran Inj) 4 mg IVP Q6 PRN PRN Reason: Nausea/Vomiting Last Admin: 07/12/18 10:40 Dose: 4 mg Pantoprazole Sodium (Protonix Inj) 40 mg IVP DAILY [facility] Last Admin: 07/16/18 08:29 Dose: 40 mg Pravastatin Sodium (Pravachol) 20 mg PO HS [facility] Last Admin: 07/16/18 22:50 Dose: Not Given - Labs Labs: 07/16/18 04:20 07/16/18 04:20 PT 16.5 Seconds (9.8-13.1) H 07/12/18 23:17 INR 1.5 07/12/18 23:17 APTT 28.3 Seconds (25.6-37.1) 07/12/18 23:17 - Head Exam Head Exam: ATRAUMATIC - Eye Exam Eye Exam: Normal appearance - ENT Exam ENT Exam: Mucous Membranes Dry - Respiratory Exam Respiratory Exam: Decreased Breath Sounds - Cardiovascular Exam Cardiovascular Exam: +S1, +S2 - GI/Abdominal Exam GI & Abdominal Exam: Normal Bowel Sounds Assessment and Plan (1) Thrombocytopenia Assessment & Plan: mild likely related to acute illness and possible medication effect cont. to monitor Status: Acute (2) Coagulopathy Assessment & Plan: nutritional Status: Acute
[2018-07-17 05:46] LABS: MEAN CELL VOLUME 90.5 fl (81.0-99.0); MEAN CORPUSCULAR HEMOGLOBIN 29.7 pg (27.0-31.0); MEAN CORPUSCULAR HGB CONC 32.9 g/dL (33.0-37.0); RBC 3.71 Mil/uL (3.80-5.20); RED CELL DISTRIBUTION WIDTH 14.9 % (11.5-14.5); WHITE BLOOD COUNT 10.3 K/uL (4.8-10.8)
[2018-07-17 05:56] LABS: ALBUMIN 2.1 g/dL (3.5-5.0); ALT/SGPT 35 U/L (9-52); AST/SGOT 41 U/L (14-36); BLOOD UREA NITROGEN 20 mg/dl (7-17); GFR NON-AFRICAN AMERICAN > 60
[2018-07-17] MEDS ORDERED: Potassium Chloride 20 mEq ER Tab PO ONE (06:09)
[2018-07-17] MEDS: Potassium CL 10 MEQ/50 ML 50 ML IVPB SCH ×4 (06:38→11:05)
--- NOTE | 2018-07-17 07:36 | CP.PCM.PN ---
Subjective - Date & Time of Evaluation Date of Evaluation: 07/17/18 Time of Evaluation: 07:36 - Subjective Subjective: Patient seen and examined at bedside, ICU day 5, awake alert, oriented to person and place Reports mild abdominal discomfort and occasional CP when coughing, no sob, fever, reports passing gas per rectum and per nurse had one BM this morning. HF oxygen via a venti mask 40% at 40 lpm, with SpO2 95%. VSS, afebrile. Off Amiodarone drip since yesterday I&O 450/920 Objective - Vital Signs/Intake and Output Vital Signs (last 24 hours): Temp Pulse Resp BP Pulse Ox 99.3 F 93 H 23 136/62 94 L 07/17/18 04:00 07/17/18 04:00 07/17/18 06:35 07/17/18 04:00 07/17/18 04:00 Intake and Output: 07/17/18 07/17/18 06:59 18:59 Intake Total 100 Output Total 320 Balance -220 - Medications Medications: Current Medications Albuterol/Ipratropium (Duoneb 3 Mg/0.5 Mg (3 Ml) Ud) 3 ml INH RQ6 PRN PRN Reason: Shortness of Breath Last Admin: 07/15/18 21:58 Dose: 3 ml Donepezil HCl (Aricept) 10 mg NG HS [facility] Last Admin: 07/16/18 22:50 Dose: Not Given Enoxaparin Sodium (Lovenox) 30 mg SC DAILY [facility]; Protocol Last Admin: 07/16/18 08:29 Dose: 30 mg Metronidazole (Flagyl 500mg/100ml Ns) 100 mls @ 100 mls/hr IVPB Q8 [facility]; Protocol Last Admin: 07/17/18 00:20 Dose: 100 mls/hr Fluconazole (Diflucan Iv 100 Mg/50 Ml Ns) 50 mls @ 50 mls/hr IVPB DAILY [facility]; Protocol Last Admin: 07/16/18 10:43 Dose: 50 mls/hr Vancomycin HCl 750 mg/ Sodium (Chloride) 250 mls @ 166.667 mls/hr IVPB Q12 [facility]; Protocol Last Admin: 07/16/18 10:44 Dose: Not Given Potassium Chloride (Potassium Cl 10meq/50ml Sterile Water) 50 mls @ 50 mls/hr IVPB Q1 [facility] Stop: 07/17/18 10:59 Last Admin: 07/17/18 06:38 Dose: 50 mls/hr Magnesium Sulfate/Dextrose (Magnesium Sulfate 1 Gm/100 Ml D5w) 1 gm in 100 mls @ 100 mls/hr IVPB ONCE ONE Stop: 07/17/18 08:05 Ketorolac Tromethamine (Toradol) 30 mg IVP Q6 PRN PRN Reason: Pain, severe (8-10) Last Admin: 07/14/18 19:06 Dose: 30 mg Mirtazapine (Remeron) 30 mg PO HS [facility] Last Admin: 07/16/18 22:50 Dose: Not Given Ondansetron HCl (Zofran Inj) 4 mg IVP Q6 PRN PRN Reason: Nausea/Vomiting Last Admin: 07/12/18 10:40 Dose: 4 mg Pantoprazole Sodium (Protonix Inj) 40 mg IVP DAILY [facility] Last Admin: 07/16/18 08:29 Dose: 40 mg Potassium Chloride (Potassium Chloride Oral Soln) 20 meq PO ONCE ONE Stop: 07/17/18 07:08 Pravastatin Sodium (Pravachol) 20 mg PO [facility] Last Admin: 07/16/18 22:50 Dose: Not Given - Labs Labs: 07/17/18 05:05 07/17/18 05:05 PT 16.5 Seconds (9.8-13.1) H 07/12/18 23:17 INR 1.5 07/12/18 23:17 APTT 28.3 Seconds (25.6-37.1) 07/12/18 23:17 - Constitutional Appears: No Acute Distress - Head Exam Head Exam: NORMAL INSPECTION - Eye Exam Eye Exam: EOMI, PERRL - Respiratory Exam Respiratory Exam: Clear to Ausculation Bilateral, NORMAL BREATHING PATTERN. absent: Rales, Rhonchi, Wheezes - Cardiovascular Exam Cardiovascular Exam: REGULAR RHYTHM, +S1, +S2. absent: Tachycardia - GI/Abdominal Exam GI & Abdominal Exam: Soft, Hypoactive Bowel Sounds. absent: Guarding, Tenderness (perincisional, dressing c/d/i) - Neurological Exam Neurological Exam: Alert, Awake Additional comments: Oriented x2 - Skin Skin Exam: Dry, Normal Color, Warm Assessment and Plan - Assessment and Plan (Free Text) Assessment: 87 F who presents with septic shock, acute respiratory failure, elevated lactate, s/p exploratory laparotomy, lysis of adhesion, and repair of enterotomy x2 for SBO POD #5 Chest/ Abd/ pelvis CT: 1.Mildly large left and mild right pleural effusions exert extensive compression atelectasis at the bilateral lower lobes with pneumonia difficult to exclude underlying these findings but not favored either. 2. Stable cardiomegaly. No pericardial effusion. 3. Lax posterior tracheal wall is seen at the central inferior trachea near the thoracic inlet. Extrinsic compression is not excluded, even possibly on the basis of esophageal thickening here. Clinically correlate further. 4. Diminishing small bowel dilatation with oral contrast now present in the ascending colon and proximal transverse segments. Limited postoperative changes seen the abdomen status post prior laparotomy. 5. Extensive colonic diverticulosis without definite diverticulitis. Note is made of distal sigmoid mural thickening clearly identified on the prior CT in this could reflect interval inflammatory or infectious process with ischemia less likely. 6.Note is made of heterogeneous density involving the T6 vertebral body potentially reflecting Paget's disease or other benign productive bony process. Plan: Small bowel obstruction/ s/p ex laparotomy POD 5 - General surgery, Dr. Mendez on board - Pain management with toradol - Anti-emetics - continue IVF - for swallow study, considering start PO - PT eval for OOB Leukocytosis - resolved - Afebrile - WBC 10 today - continue meropenem, Vanco, Flagyl and diflucan added as ID recommendation - Hemo/onc are on the case AFib - back to NSR, HR 87 on monitor - Cardiology consulted, recs appreciated - Echo: preserved left ventricular systolic function. Acute ND - likely 2/2 hypotension during surgery or tachycardia during A Fib. - Hemodynamically stable - troponin elevation ( less than 10 days of ND) - Echo: preserved left ventricular systolic function. - Cardiology on board, recs appreciated Bilateral Pleural effusion - Abd CT: larger in left that Right - Pulmonology consult, recs appreciated - f/u CXR - afebrile Hypertension - controlled - metoprolol succinated 50 mg ER Hyperlipidemia - resume pravastatin 20 mg po hs GERD - start protonix 40 mg IVP Hiatal hernia - c/w protonix 40 mg IVP Cognitive impairment - aricept Insomnia/anxiety - remeron and aricept DVT prophylaxis - SCDs - Lovenox 40 sc Case seen and examined with Dr Ernesto Ramírez PGY 2
[2018-07-17] MEDS ORDERED: Magnesium Sulfate 1 gm in D5W 1 GM/100 ML BAG IVPB ONE (08:30)
[2018-07-17] MEDS ORDERED: Potassium Chloride 20 mEq/15 ml LIQ UD PO ONE (08:30)
--- NOTE | 2018-07-17 08:42 | CP.PCM.PN ---
Subjective - Date & Time of Evaluation Date of Evaluation: 07/17/18 Time of Evaluation: 08:25 - Subjective Subjective: Resting comfortably NG Tube has been D/Allen Sinus rhythm at 80 BPM BP 136/70 mm Hg (Off of pressors) Excellent urine out put Leucocytosis has resolved BUN/Creatinin stable Stable from cardiac point of view Objective - Vital Signs/Intake and Output Vital Signs (last 24 hours): Temp Pulse Resp BP Pulse Ox 99.2 F 90 21 135/73 95 07/17/18 08:00 07/17/18 08:00 07/17/18 08:00 07/17/18 08:00 07/17/18 08:00 Intake and Output: 07/17/18 07/17/18 06:59 18:59 Intake Total 100 Output Total 320 Balance -220 - Medications Medications: Current Medications Albuterol/Ipratropium (Duoneb 3 Mg/0.5 Mg (3 Ml) Ud) 3 ml INH RQ6 PRN PRN Reason: Shortness of Breath Last Admin: 07/15/18 21:58 Dose: 3 ml Donepezil HCl (Aricept) 10 mg NG HS [facility] Last Admin: 07/16/18 22:50 Dose: Not Given Enoxaparin Sodium (Lovenox) 30 mg SC DAILY [facility]; Protocol Last Admin: 07/16/18 08:29 Dose: 30 mg Metronidazole (Flagyl 500mg/100ml Ns) 100 mls @ 100 mls/hr IVPB Q8 [facility]; Protocol Last Admin: 07/17/18 00:20 Dose: 100 mls/hr Fluconazole (Diflucan Iv 100 Mg/50 Ml Ns) 50 mls @ 50 mls/hr IVPB DAILY [facility]; Protocol Last Admin: 07/16/18 10:43 Dose: 50 mls/hr Vancomycin HCl 750 mg/ Sodium (Chloride) 250 mls @ 166.667 mls/hr IVPB Q12 [facility]; Protocol Last Admin: 07/16/18 10:44 Dose: Not Given Potassium Chloride (Potassium Cl 10meq/50ml Sterile Water) 50 mls @ 50 mls/hr IVPB Q1 [facility] Stop: 07/17/18 10:59 Last Admin: 07/17/18 08:21 Dose: 50 mls/hr Magnesium Sulfate/Dextrose (Magnesium Sulfate 1 Gm/100 Ml D5w) 1 gm in 100 mls @ 100 mls/hr IVPB ONCE ONE Stop: 07/17/18 09:29 Ketorolac Tromethamine (Toradol) 30 mg IVP Q6 PRN PRN Reason: Pain, severe (8-10) Last Admin: 07/14/18 19:06 Dose: 30 mg Mirtazapine (Remeron) 30 mg PO HS [facility] Last Admin: 07/16/18 22:50 Dose: Not Given Ondansetron HCl (Zofran Inj) 4 mg IVP Q6 PRN PRN Reason: Nausea/Vomiting Last Admin: 07/12/18 10:40 Dose: 4 mg Pantoprazole Sodium (Protonix Inj) 40 mg IVP DAILY [facility] Last Admin: 07/16/18 08:29 Dose: 40 mg Pravastatin Sodium (Pravachol) 20 mg PO HS [facility] Last Admin: 07/16/18 22:50 Dose: Not Given - Labs Labs: 07/17/18 05:05 07/17/18 05:05 PT 16.5 Seconds (9.8-13.1) H 07/12/18 23:17 INR 1.5 07/12/18 23:17 APTT 28.3 Seconds (25.6-37.1) 07/12/18 23:17
--- NOTE | 2018-07-17 08:54 | CARD ---
APPROVED REPORT Date of service: 07/17/2018 EKG Measurement Heart [id number] <Conclusion> Normal sinus rhythm Normal ECG
--- NOTE | 2018-07-17 08:58 | CP.PCM.PN ---
Subjective - Date & Time of Evaluation Date of Evaluation: 07/17/18 Time of Evaluation: 08:58 - Subjective Subjective: Lying in bed, appears comfortable. Responds to simple questions. MAXIMUM TEMPERATURE 99.9. Oxygenation 93-95% using high flow nasal cannula at 40/40. WBC has decreased to 10.3 and hemoglobin stable at 11.0 with platelets 103. Hypokalemic at 2.9, renal function remains stable. No chest x-ray done this morning. Cooperative with examination. Neck is supple and trachea is midline. No dullness on percussion of the thorax anteriorly. No subcutaneous emphysema. Breath sounds are well heard anteriorly but remained markedly diminished posteriorly. No audible wheezing or bronchial breath sounds. Heart sounds are slightly distant. Rhythm is regular. Dependent edema without cyanosis. Will followup with chest x-ray in the morning and request thoracentesis if the effusions remain unchanged. Continue current use of high flow nasal cannula at 40 L and 40% oxygen. ICU time 30min. Objective - Vital Signs/Intake and Output Vital Signs (last 24 hours): Temp Pulse Resp BP Pulse Ox 99.2 F 90 21 135/73 95 07/17/18 08:00 07/17/18 08:00 07/17/18 08:00 07/17/18 08:00 07/17/18 08:00 Intake and Output: 07/16/18 07/17/18 23:59 11:59 Intake Total 200 100 Output Total 750 170 Balance -550 -70 - Medications Medications: Current Medications Albuterol/Ipratropium (Duoneb 3 Mg/0.5 Mg (3 Ml) Ud) 3 ml INH RQ6 PRN PRN Reason: Shortness of Breath Last Admin: 07/15/18 21:58 Dose: 3 ml Donepezil HCl (Aricept) 10 mg NG HS [facility] Last Admin: 07/16/18 22:50 Dose: Not Given Enoxaparin Sodium (Lovenox) 30 mg SC DAILY [facility]; Protocol Last Admin: 07/16/18 08:29 Dose: 30 mg Metronidazole (Flagyl 500mg/100ml Ns) 100 mls @ 100 mls/hr IVPB Q8 [facility]; Pr otocol Last Admin: 07/17/18 00:20 Dose: 100 mls/hr Fluconazole (Diflucan Iv 100 Mg/50 Ml Ns) 50 mls @ 50 mls/hr IVPB DAILY [facility]; Protocol Last Admin: 07/16/18 10:43 Dose: 50 mls/hr Vancomycin HCl 750 mg/ Sodium (Chloride) 250 mls @ 166.667 mls/hr IVPB Q12 [facility]; Protocol Last Admin: 07/16/18 10:44 Dose: Not Given Potassium Chloride (Potassium Cl 10meq/50ml Sterile Water) 50 mls @ 50 mls/hr I VPB Q1 [facility] Stop: 07/17/18 10:59 Last Admin: 07/17/18 08:21 Dose: 50 mls/hr Magnesium Sulfate/Dextrose (Magnesium Sulfate 1 Gm/100 Ml D5w) 1 gm in 100 mls @ 100 mls/hr IVPB ONCE ONE Stop: 07/17/18 09:29 Ketorolac Tromethamine (Toradol) 30 mg IVP Q6 PRN PRN Reason: Pain, severe (8-10) Last Admin: 07/14/18 19:06 Dose: 30 mg Mirtazapine (Remeron) 30 mg PO HS [facility] Last Admin: 07/16/18 22:50 Dose: Not Given Ondansetron HCl (Zofran Inj) 4 mg IVP Q6 PRN PRN Reason: Nausea/Vomiting Last Admin: 07/12/18 10:40 Dose: 4 mg Pantoprazole Sodium (Protonix Inj) 40 mg IVP DAILY [facility] Last Admin: 07/16/18 08:29 Dose: 40 mg Pravastatin Sodium (Pravachol) 20 mg PO HS [facility] Last Admin: 07/16/18 22:50 Dose: Not Given - Labs Labs: 07/17/18 05:05 07/17/18 05:05 PT 16.5 Seconds (9.8-13.1) H 07/12/18 23:17 INR 1.5 07/12/18 23:17 APTT 28.3 Seconds (25.6-37.1) 07/12/18 23:17 Assessment and Plan (1) Pleural effusion Status: Acute (2) Atelectasis Status: Acute (3) Acute respiratory insufficiency Status: Acute
[2018-07-17] MEDS: Enoxaparin 30 mg Syringe SC SCH (09:03)
--- NOTE | 2018-07-17 10:39 | CP.PCM.PN ---
<Wolfgang Tanner - Last Filed: 07/17/18 14:52> Subjective - Date & Time of Evaluation Date of Evaluation: 07/17/18 Time of Evaluation: 10:39 - Subjective Subjective: General Surgery Note for Dr. Mendez Patient seen and examined at bedside. She is s/p exploratory laparotomy, lysis of adhesion, and repair of enterotomy x 2 for SBO POD#5. Patient more alert, awake and responsive to questions this morning. Patient IV fluids were stopped last night. Urine output was 320cc/overnight and 175cc since 7 am this morning. Patient and family does not know if patient passing flatus, however, patient has multiple bowel movements. Objective - Vital Signs/Intake and Output Vital Signs (last 24 hours): Temp Pulse Resp BP Pulse Ox 99.2 F 90 23 142/79 95 07/17/18 08:00 07/17/18 10:00 07/17/18 10:00 07/17/18 10:00 07/17/18 10:00 Intake and Output: 07/17/18 07/17/18 06:59 18:59 Intake Total 100 250 Output Total 320 Balance -220 250 - Medications Medications: Current Medications Acetylcysteine (Acetylcysteine 20%) 2 ml INH RBID [facility] Albuterol Sulfate (Albuterol 0.083% Inhal Julieth (2.5 Mg/3 Ml) Ud) 2.5 mg INH RBID [facility] Albuterol/Ipratropium (Duoneb 3 Mg/0.5 Mg (3 Ml) Ud) 3 ml INH RQ6 PRN PRN Reason: Shortness of Breath Last Admin: 07/15/18 21:58 Dose: 3 ml Donepezil HCl (Aricept) 10 mg NG HS [facility] Last Admin: 07/16/18 22:50 Dose: Not Given Enoxaparin Sodium (Lovenox) 30 mg SC DAILY [facility]; Protocol Last Admin: 07/17/18 09:03 Dose: 30 mg Metronidazole (Flagyl 500mg/100ml Ns) 100 mls @ 100 mls/hr IVPB Q8 [facility]; Protocol Last Admin: 07/17/18 10:11 Dose: 100 mls/hr Fluconazole (Diflucan Iv 100 Mg/50 Ml Ns) 50 mls @ 50 mls/hr IVPB DAILY [facility]; Protocol Last Admin: 07/16/18 10:43 Dose: 50 mls/hr Vancomycin HCl 750 mg/ Sodium (Chloride) 250 mls @ 166.667 mls/hr IVPB Q12 [facility]; Protocol Last Admin: 07/16/18 10:44 Dose: Not Given Potassium Chloride (Potassium Cl 10meq/50ml Sterile Water) 50 mls @ 50 mls/hr IVPB Q1 [facility] Stop: 07/17/18 10:59 Last Admin: 07/17/18 10:09 Dose: 50 mls/hr Ketorolac Tromethamine (Toradol) 30 mg IVP Q6 PRN PRN Reason: Pain, severe (8-10) Last Admin: 07/14/18 19:06 Dose: 30 mg Mirtazapine (Remeron) 30 mg PO HS [facility] Last Admin: 07/16/18 22:50 Dose: Not Given Ondansetron HCl (Zofran Inj) 4 mg IVP Q6 PRN PRN Reason: Nausea/Vomiting Last Admin: 07/12/18 10:40 Dose: 4 mg Pantoprazole Sodium (Protonix Inj) 40 mg IVP DAILY [facility] Last Admin: 07/17/18 09:03 Dose: 40 mg Pravastatin Sodium (Pravachol) 20 mg PO HS [facility] Last Admin: 07/16/18 22:50 Dose: Not Given - Labs Labs: 07/17/18 05:05 07/17/18 05:05 PT 16.5 Seconds (9.8-13.1) H 07/12/18 23:17 INR 1.5 07/12/18 23:17 APTT 28.3 Seconds (25.6-37.1) 07/12/18 23:17 - Constitutional Appears: Well, No Acute Distress - Head Exam Head Exam: ATRAUMATIC, NORMOCEPHALIC - Eye Exam Eye Exam: PERRL - ENT Exam ENT Exam: Mucous Membranes Moist - Neck Exam Additional comments: RIJ TLC - Respiratory Exam Respiratory Exam: absent: Accessory Muscle Use, NORMAL BREATHING PATTERN Additional comments: normal breathing with 2L NC - GI/Abdominal Exam GI & Abdominal Exam: Soft, Normal Bowel Sounds. absent: Distended, Firm, Guarding, Rigid Additional comments: strike through noted to dressing, tenderness at the surgical site - Extremities Exam Extremities Exam: Normal Capillary Refill - Neurological Exam Neurological Exam: Alert, Awake - Skin Skin Exam: Dry, Normal Color, Warm Assessment and Plan - Assessment and Plan (Free Text) Assessment: 87 F who presents with septic shock, acute respiratory failure, elevated lactate, s/p exploratory laparotomy, lysis of adhesion, and repair of enterotomy x 2 for SBO POD#5. Plan: Neuro -HOB > 30 -Pain control -Aricept -Remeron Resp -Maintain SaO2 > 92% -2LNC CV -Maintain MAP > 65 -off vasopressors GI -swallow eval ordered- if passed, patient can be started on full liquid diet -Protonix -Zofran PRN -Strict I's & O's -Maintain Urine output 0.5-1 cc/kg/hr -Replete electrolytes PRN Endo -Maintain euglycemia 140-180 Heme -Monitor H/H and platelets -Chemical and mechanical DVT ppx ID -ID consult, f/u recommendations -Flagyl, Vanco, Fluconazole -Trend WBC <Wilder Bullock N - Last Filed: 07/19/18 12:12> Objective - Vital Signs/Intake and Output Vital Signs (last 24 hours): Temp Pulse Resp BP Pulse Ox 98.3 F 89 16 136/68 94 L 07/19/18 08:00 07/19/18 10:00 07/19/18 11:10 07/19/18 10:00 07/19/18 10:00 Intake and Output: 07/19/18 07/19/18 06:59 18:59 Intake Total 950 620 Balance 950 620 - Medications Medications: Current Medications Acetylcysteine (Acetylcysteine 20%) 2 ml INH RBID [facility] Last Admin: 07/19/18 07:31 Dose: 2 ml Albuterol Sulfate (Albuterol 0.083% Inhal Julieth (2.5 Mg/3 Ml) Ud) 2.5 mg INH RBID [facility] Last Admin: 07/19/18 07:31 Dose: 2.5 mg Albuterol/Ipratropium (Duoneb 3 Mg/0.5 Mg (3 Ml) Ud) 3 ml INH RQ6 PRN PRN Reason: Shortness of Breath Last Admin: 07/15/18 21:58 Dose: 3 ml Digoxin (Digoxin) 0.125 mg PO DAILY [facility] Last Admin: 07/19/18 11:30 Dose: 0.125 mg Donepezil HCl (Aricept) 10 mg NG HS [facility] Last Admin: 07/18/18 21:25 Dose: 10 mg Enoxaparin Sodium (Lovenox) 30 mg SC DAILY [facility]; Protocol Last Admin: 07/19/18 08:42 Dose: 30 mg Metronidazole (Flagyl 500mg/100ml Ns) 100 mls @ 100 mls/hr IVPB Q8 [facility]; Protocol Last Admin: 07/19/18 08:41 Dose: 100 mls/hr Fluconazole (Diflucan Iv 100 Mg/50 Ml Ns) 50 mls @ 50 mls/hr IVPB DAILY [facility]; Protocol Last Admin: 07/19/18 08:39 Dose: 50 mls/hr Vancomycin HCl 750 mg/ Sodium (Chloride) 250 mls @ 166.667 mls/hr IVPB Q12 [facility]; Protocol Last Admin: 07/19/18 08:48 Dose: 166.667 mls/hr Meropenem 1 gm/ Sodium (Chloride) 100 mls @ 100 mls/hr IVPB Q8 [facility]; Protocol Last Admin: 07/19/18 08:43 Dose: 100 mls/hr Ketorolac Tromethamine (Toradol) 30 mg IVP Q6 PRN PRN Reason: Pain, severe (8-10) Last Admin: 07/19/18 02:26 Dose: 30 mg Mirtazapine (Remeron) 30 mg PO HS [facility] Last Admin: 07/18/18 21:26 Dose: 30 mg Ondansetron HCl (Zofran Inj) 4 mg IVP Q6 PRN PRN Reason: Nausea/Vomiting Last Admin: 07/12/18 10:40 Dose: 4 mg Pantoprazole Sodium (Protonix Inj) 40 mg IVP DAILY [facility] Last Admin: 07/19/18 08:47 Dose: 40 mg Pravastatin Sodium (Pravachol) 20 mg PO HS [facility] Last Admin: 07/18/18 21:25 Dose: 20 mg - Labs Labs: 07/19/18 05:00 07/19/18 05:00 PT 14.9 Seconds (9.8-13.1) H 07/18/18 05:00 INR 1.3 07/18/18 05:00 APTT 25.6 Seconds (25.6-37.1) 07/18/18 05:00 Assessment and Plan - Assessment and Plan (Free Text) Plan: Needs aggressive PT, and replacement of K All medical record entries made by the resident were at my direction. I have reviewed the chart and agree that the record accurately reflects my personal performance of the history, physical exam, medical decision making. I have also personally directed, reviewed, and agree with the resident disposition.
[2018-07-17] MEDS: Fluconazole IV 100mg/50 ml NS 50 ML IVPB SCH (12:46)
[2018-07-17] MEDS: Meropenem 1 GM in Sodium Chloride 0.9% 100 ML IVPB SCH (17:19)
[2018-07-17] MEDS: Albuterol 0.083% Inhal Sol (2.5 mg/3 mL) UD INH SCH (19:55)
[2018-07-17] MEDS: Acetylcysteine 20% Inhal Soln (4ml) INH SCH (19:55)
--- NOTE | 2018-07-17 20:29 | CP.PCM.PN ---
Subjective - Date & Time of Evaluation Date of Evaluation: 07/17/18 Time of Evaluation: 19:00 - Subjective Subjective: Appears comfortable. Objective - Vital Signs/Intake and Output Vital Signs (last 24 hours): Temp Pulse Resp BP Pulse Ox 100 F H 91 H 27 H 120/60 92 L 07/17/18 20:00 07/17/18 20:00 07/17/18 20:00 07/17/18 20:00 07/17/18 20:00 Intake and Output: 07/17/18 07/18/18 18:59 06:59 Intake Total 1200 105 Output Total 550 Balance 650 105 - Medications Medications: Current Medications Acetylcysteine (Acetylcysteine 20%) 2 ml INH RBID [facility] Last Admin: 07/17/18 19:55 Dose: 2 ml Albuterol Sulfate (Albuterol 0.083% Inhal Julieth (2.5 Mg/3 Ml) Ud) 2.5 mg INH RBID [facility] Last Admin: 07/17/18 19:55 Dose: 2.5 mg Albuterol/Ipratropium (Duoneb 3 Mg/0.5 Mg (3 Ml) Ud) 3 ml INH RQ6 PRN PRN Reason: Shortness of Breath Last Admin: 07/15/18 21:58 Dose: 3 ml Donepezil HCl (Aricept) 10 mg NG HS [facility] Last Admin: 07/16/18 22:50 Dose: Not Given Enoxaparin Sodium (Lovenox) 30 mg SC DAILY [facility]; Protocol Last Admin: 07/17/18 09:03 Dose: 30 mg Metronidazole (Flagyl 500mg/100ml Ns) 100 mls @ 100 mls/hr IVPB Q8 [facility]; Protocol Last Admin: 07/17/18 16:14 Dose: 100 mls/hr Fluconazole (Diflucan Iv 100 Mg/50 Ml Ns) 50 mls @ 50 mls/hr IVPB DAILY [facility]; Protocol Last Admin: 07/17/18 12:46 Dose: 50 mls/hr Vancomycin HCl 750 mg/ Sodium (Chloride) 250 mls @ 166.667 mls/hr IVPB Q12 [facility]; Protocol Last Admin: 07/16/18 10:44 Dose: Not Given Meropenem 1 gm/ Sodium (Chloride) 100 mls @ 100 mls/hr IVPB Q8 [facility]; Protocol Last Admin: 07/17/18 17:19 Dose: 100 mls/hr Diltiazem HCl 125 mg/ Sodium (Chloride) 125 mls @ 5 mls/hr IV .Q24H [facility]; Protocol Last Admin: 07/17/18 17:23 Dose: 5 mg/hr, 5 mls/hr Dextrose/Lactated Ringer's (Dextrose 5%/Lactated Ringer's) 1,000 mls @ 100 mls /hr IV .Q10H [facility] Stop: 07/18/18 19:08 Ketorolac Tromethamine (Toradol) 30 mg IVP Q6 PRN PRN Reason: Pain, severe (8-10) Last Admin: 07/14/18 19:06 Dose: 30 mg Mirtazapine (Remeron) 30 mg PO HS [facility] Last Admin: 07/16/18 22:50 Dose: Not Given Ondansetron HCl (Zofran Inj) 4 mg IVP Q6 PRN PRN Reason: Nausea/Vomiting Last Admin: 07/12/18 10:40 Dose: 4 mg Pantoprazole Sodium (Protonix Inj) 40 mg IVP DAILY [facility] Last Admin: 07/17/18 09:03 Dose: 40 mg Pravastatin Sodium (Pravachol) 20 mg PO HS [facility] Last Admin: 07/16/18 22:50 Dose: Not Given - Labs Labs: 07/17/18 05:05 07/17/18 05:05 PT 16.5 Seconds (9.8-13.1) H 07/12/18 23:17 INR 1.5 07/12/18 23:17 APTT 28.3 Seconds (25.6-37.1) 07/12/18 23:17 - Head Exam Head Exam: ATRAUMATIC - Eye Exam Eye Exam: Normal appearance - ENT Exam ENT Exam: Mucous Membranes Dry - Respiratory Exam Respiratory Exam: Decreased Breath Sounds - Cardiovascular Exam Cardiovascular Exam: +S1, +S2 - GI/Abdominal Exam GI & Abdominal Exam: Normal Bowel Sounds Assessment and Plan (1) Thrombocytopenia Assessment & Plan: mild likely related to acute illness and possible medication effect cont. to monitor Status: Acute (2) Coagulopathy Assessment & Plan: nutritional check fibrinogen to rule out DIC Status: Acute
[2018-07-17] MEDS: Dextrose 5%/Lactated Ringer's 1,000 ML IV SCH ×2 (20:31→23:53)
[2018-07-17] MEDS: Pravastatin Sodium 20 MG TAB PO SCH (22:09)
[2018-07-18] MEDS: Meropenem 1 GM in Sodium Chloride 0.9% 100 ML IVPB SCH ×3 (00:01→18:39)
[2018-07-18] MEDS: metroNIDAZOLE 500mg/100ml NS 100 ML IVPB SCH ×3 (00:01→16:59)
[2018-07-18 05:06] LABS: HEMOGLOBIN 11.3 g/dL (12.0-16.0); MEAN CORPUSCULAR HEMOGLOBIN 29.7 pg (27.0-31.0); MEAN CORPUSCULAR HGB CONC 33.6 g/dL (33.0-37.0); RBC 3.79 Mil/uL (3.80-5.20); RED CELL DISTRIBUTION WIDTH 14.3 % (11.5-14.5); WHITE BLOOD COUNT 10.6 K/uL (4.8-10.8)
[2018-07-18 05:12] LABS: MEAN CELL VOLUME 88.3 fl (81.0-99.0)
[2018-07-18 05:14] LABS: INR 1.3; PROTHROMBIN TIME 14.9 Seconds (9.8-13.1)
[2018-07-18 05:16] LABS: ALB/GLOB RATIO 0.8 (1.0-2.1); ALBUMIN 1.8 g/dL (3.5-5.0); ALT/SGPT 29 U/L (9-52); AST/SGOT 29 U/L (14-36); BLOOD UREA NITROGEN 17 mg/dl (7-17); CALCIUM 7.7 mg/dL (8.4-10.2); GFR NON-AFRICAN AMERICAN > 60; PARTIAL THROMBOPLASTIN TIME 25.6 Seconds (25.6-37.1)
[2018-07-18] MEDS ORDERED: Potassium CL 10 MEQ/50 ML 50 ML IVPB SCH (06:03)
[2018-07-18] MEDS ORDERED: Magnesium Sulfate 1 gm in D5W 1 GM/100 ML BAG IVPB ONE (07:32)
--- NOTE | 2018-07-18 08:05 | CP.PCM.PN ---
Subjective - Date & Time of Evaluation Date of Evaluation: 07/18/18 Time of Evaluation: 08:05 - Subjective Subjective: Patient seen and examined at bedside, ICU day 6, awake, alert and oriented x3 Had a bout of Afib yesterday and was placed in Cardicaem. NSR today on monitor. Lying comfortably in bed, to be OOB today, no abd pain, tolerating liquids, de nies CP when coughing, no sob, fever, reports passing gas per rectum and per nurse had 2 normal BM last night and 1 this morning. HF oxygen via a venti mask 40% at 40 lpm, with SpO2 92%. VSS, afebrile. I&O 2630/950 Objective - Vital Signs/Intake and Output Vital Signs (last 24 hours): Temp Pulse Resp BP Pulse Ox 99.2 F 90 26 H 131/65 91 L 07/18/18 04:00 07/18/18 06:56 07/18/18 06:56 07/18/18 06:56 07/18/18 06:56 Intake and Output: 07/18/18 07/18/18 06:59 18:59 Intake Total 1430 Output Total 400 Balance 1030 - Medications Medications: Current Medications Acetylcysteine (Acetylcysteine 20%) 2 ml INH RBID [facility] Last Admin: 07/17/18 19:55 Dose: 2 ml Albuterol Sulfate (Albuterol 0.083% Inhal Julieth (2.5 Mg/3 Ml) Ud) 2.5 mg INH RBID [facility] Last Admin: 07/17/18 19:55 Dose: 2.5 mg Albuterol/Ipratropium (Duoneb 3 Mg/0.5 Mg (3 Ml) Ud) 3 ml INH RQ6 PRN PRN Reason: Shortness of Breath Last Admin: 07/15/18 21:58 Dose: 3 ml Donepezil HCl (Aricept) 10 mg NG HS [facility] Last Admin: 07/17/18 22:09 Dose: 10 mg Enoxaparin Sodium (Lovenox) 30 mg SC DAILY [facility]; Protocol Last Admin: 07/17/18 09:03 Dose: 30 mg Metronidazole (Flagyl 500mg/100ml Ns) 100 mls @ 100 mls/hr IVPB Q8 [facility]; Protocol Last Admin: 07/18/18 00:01 Dose: 100 mls/hr Fluconazole (Diflucan Iv 100 Mg/50 Ml Ns) 50 mls @ 50 mls/hr IVPB DAILY [facility]; Protocol Last Admin: 07/17/18 12:46 Dose: 50 mls/hr Vancomycin HCl 750 mg/ Sodium (Chloride) 250 mls @ 166.667 mls/hr IVPB Q12 [facility]; Protocol Last Admin: 07/16/18 10:44 Dose: Not Given Meropenem 1 gm/ Sodium (Chloride) 100 mls @ 100 mls/hr IVPB Q8 [facility]; Protocol Last Admin: 07/18/18 00:01 Dose: 100 mls/hr Diltiazem HCl 125 mg/ Sodium (Chloride) 125 mls @ 5 mls/hr IV .Q24H [facility]; Protocol Last Admin: 07/17/18 17:23 Dose: 5 mg/hr, 5 mls/hr Dextrose/Lactated Ringer's (Dextrose 5%/Lactated Ringer's) 1,000 mls @ 100 mls/hr IV .Q10H [facility] Stop: 07/18/18 19:08 Last Admin: 07/17/18 23:53 Dose: 100 mls/hr Potassium Chloride (Potassium Chloride 10 Meq/100 Ml) 100 mls @ 100 mls/hr IVPB Q1 [facility] Stop: 07/18/18 13:59 Magnesium Sulfate/Dextrose (Magnesium Sulfate 1 Gm/100 Ml D5w) 1 gm in 100 mls @ 100 mls/hr IVPB ONCE ONE Stop: 07/18/18 08:31 Ketorolac Tromethamine (Toradol) 30 mg IVP Q6 PRN PRN Reason: Pain, severe (8-10) Last Admin: 07/14/18 19:06 Dose: 30 mg Mirtazapine (Remeron) 30 mg PO HS [facility] Last Admin: 07/17/18 22:09 Dose: 30 mg Ondansetron HCl (Zofran Inj) 4 mg IVP Q6 PRN PRN Reason: Nausea/Vomiting Last Admin: 07/12/18 10:40 Dose: 4 mg Pantoprazole Sodium (Protonix Inj) 40 mg IVP DAILY [facility] Last Admin: 07/17/18 09:03 Dose: 40 mg Pravastatin Sodium (Pravachol) 20 mg PO HS [facility] Last Admin: 07/17/18 22:09 Dose: 20 mg - Labs Labs: 07/18/18 05:00 07/18/18 05:00 PT 14.9 Seconds (9.8-13.1) H 07/18/18 05:00 INR 1.3 07/18/18 05:00 APTT 25.6 Seconds (25.6-37.1) 07/18/18 05:00 - Constitutional Appears: No Acute Distress - Head Exam Head Exam: NORMAL INSPECTION - Eye Exam Eye Exam: EOMI, PERRL - Respiratory Exam Respiratory Exam: Decreased Breath Sounds (Left more than Right), Rhonchi. absent: Accessory Muscle Use, Rales, Wheezes - Cardiovascular Exam Cardiovascular Exam: REGULAR RHYTHM, +S1, +S2. absent: Tachycardia - GI/Abdominal Exam GI & Abdominal Exam: Soft, Normal Bowel Sounds. absent: Tenderness Additional comments: Dressing noted c/d/i - Extremities Exam Extremities Exam: absent: Calf Tenderness, Pedal Edema - Neurological Exam Neurological Exam: Alert, Awake, Oriented x3 - Skin Skin Exam: Dry, Warm Assessment and Plan - Assessment and Plan (Free Text) Assessment: 87 F who presents with septic shock, acute respiratory failure, elevated lactate, s/p exploratory laparotomy, lysis of adhesion, and repair of enterotomy x2 for SBO POD #6 Chest/ Abd/ pelvis CT: 1.Mildly large left and mild right pleural effusions exert extensive compression atelectasis at the bilateral lower lobes with pneumonia difficult to exclude underlying these findings but not favored either. 2. Stable cardiomegaly. No pericardial effusion. 3. Lax posterior tracheal wall is seen at the central inferior trachea near the thoracic inlet. Extrinsic compression is not excluded, even possibly on the basis of esophageal thickening here. Clinically correlate further. 4. Diminishing small bowel dilatation with oral contrast now present in the ascending colon and proximal transverse segments. Limited postoperative changes seen the abdomen status post prior laparotomy. 5. Extensive colonic diverticulosis without definite diverticulitis. Note is ma de of distal sigmoid mural thickening clearly identified on the prior CT in this could reflect interval inflammatory or infectious process with ischemia less likely. 6.Note is made of heterogeneous density involving the T6 vertebral body potentially reflecting Paget's disease or other benign productive bony process. Plan: Small bowel obstruction/ s/p ex laparotomy POD 6 - General surgery, Dr. Mendez on board - Pain management with toradol - Anti-emetics - continue IVF - for swallow study, considering start PO - PT - plan OOB today Leukocytosis - resolved - Afebrile - continue meropenem, Vanco, Flagyl and diflucan added as ID recommendation - Hemo/onc are on the case AFib - back to NSR, HR 87 on monitor - Cardiology consulted, recs appreciated - Echo: preserved left ventricular systolic function. Acute OH - likely 2/2 hypotension during surgery or tachycardia during A Fib. - Hemodynamically stable - troponin elevation ( less than 10 days of OH) - Echo: preserved left ventricular systolic function. - Cardiology on board, recs appreciated Bilateral Pleural effusion - Abd CT: larger in left that Right - Pulmonology consult, recs appreciated - f/u CXR - considering tap tomorrow - afebrile Hypertension - controlled - metoprolol succinated 50 mg ER Hyperlipidemia - resume pravastatin 20 mg po hs GERD - start protonix 40 mg IVP Hiatal hernia - c/w protonix 40 mg IVP Cognitive impairment - aricept Insomnia/anxiety - remeron and aricept DVT prophylaxis - SCDs - Lovenox 40 sc Case seen and examined with Dr Ernesto Ramírez PGY 2
[2018-07-18] MEDS: Acetylcysteine 20% Inhal Soln (4ml) INH SCH ×2 (08:29→19:18)
[2018-07-18] MEDS: Albuterol 0.083% Inhal Sol (2.5 mg/3 mL) UD INH SCH ×2 (08:29→19:17)
[2018-07-18] MEDS: Potassium CL 10mEq/100ml 100 ML IVPB SCH ×3 (08:35→11:15)
[2018-07-18] MEDS: Enoxaparin 30 mg Syringe SC SCH (08:51)
--- NOTE | 2018-07-18 08:53 | CP.PCM.PN ---
<Tremayne Candelaria - Last Filed: 07/18/18 13:58> Subjective - Date & Time of Evaluation Date of Evaluation: 07/18/18 Time of Evaluation: 07:30 - Subjective Subjective: General Surgery Note for Dr. Mendez Patient seen and examined at bedside. She is s/p exploratory laparotomy, lysis of adhesion, and repair of enterotomy x 2 for SBO POD#6. Patient more alert, awake and responsive to questions this morning. Patient is on liquid diet. Urine output was 950cc/24 hrs. She has had BMs. Objective - Vital Signs/Intake and Output Vital Signs (last 24 hours): Temp Pulse Resp BP Pulse Ox 99.5 F 87 22 130/65 92 L 07/18/18 08:00 07/18/18 08:00 07/18/18 08:30 07/18/18 08:00 07/18/18 08:00 Intake and Output: 07/18/18 07/18/18 06:59 18:59 Intake Total 1430 Output Total 400 Balance 1030 - Medications Medications: Current Medications Acetylcysteine (Acetylcysteine 20%) 2 ml INH RBID [facility] Last Admin: 07/18/18 08:29 Dose: 2 ml Albuterol Sulfate (Albuterol 0.083% Inhal Julieth (2.5 Mg/3 Ml) Ud) 2.5 mg INH RBID [facility] Last Admin: 07/18/18 08:29 Dose: 2.5 mg Albuterol/Ipratropium (Duoneb 3 Mg/0.5 Mg (3 Ml) Ud) 3 ml INH RQ6 PRN PRN Reason: Shortness of Breath Last Admin: 07/15/18 21:58 Dose: 3 ml Donepezil HCl (Aricept) 10 mg NG HS [facility] Last Admin: 07/17/18 22:09 Dose: 10 mg Enoxaparin Sodium (Lovenox) 30 mg SC DAILY [facility]; Protocol Last Admin: 07/18/18 08:51 Dose: 30 mg Metronidazole (Flagyl 500mg/100ml Ns) 100 mls @ 100 mls/hr IVPB Q8 [facility]; Protocol Last Admin: 07/18/18 00:01 Dose: 100 mls/hr Fluconazole (Diflucan Iv 100 Mg/50 Ml Ns) 50 mls @ 50 mls/hr IVPB DAILY [facility]; Protocol Last Admin: 07/17/18 12:46 Dose: 50 mls/hr Vancomycin HCl 750 mg/ Sodium (Chloride) 250 mls @ 166.667 mls/hr IVPB Q12 [facility]; Protocol Last Admin: 07/16/18 10:44 Dose: Not Given Meropenem 1 gm/ Sodium (Chloride) 100 mls @ 100 mls/hr IVPB Q8 [facility]; Protocol Last Admin: 07/18/18 08:51 Dose: 100 mls/hr Diltiazem HCl 125 mg/ Sodium (Chloride) 125 mls @ 5 mls/hr IV .Q24H [facility]; Protocol Last Admin: 07/17/18 17:23 Dose: 5 mg/hr, 5 mls/hr Dextrose/Lactated Ringer's (Dextrose 5%/Lactated Ringer's) 1,000 mls @ 100 mls/hr IV .Q10H [facility] Stop: 07/18/18 19:08 Last Admin: 07/17/18 23:53 Dose: 100 mls/hr Potassium Chloride (Potassium Chloride 10 Meq/100 Ml) 100 mls @ 100 mls/hr IVPB Q1 [facility] Stop: 07/18/18 13:59 Last Admin: 07/18/18 08:35 Dose: 100 mls/hr Ketorolac Tromethamine (Toradol) 30 mg IVP Q6 PRN PRN Reason: Pain, severe (8-10) Last Admin: 07/14/18 19:06 Dose: 30 mg Mirtazapine (Remeron) 30 mg PO HS [facility] Last Admin: 07/17/18 22:09 Dose: 30 mg Ondansetron HCl (Zofran Inj) 4 mg IVP Q6 PRN PRN Reason: Nausea/Vomiting Last Admin: 07/12/18 10:40 Dose: 4 mg Pantoprazole Sodium (Protonix Inj) 40 mg IVP DAILY [facility] Last Admin: 07/18/18 08:51 Dose: 40 mg Pravastatin Sodium (Pravachol) 20 mg PO HS [facility] Last Admin: 07/17/18 22:09 Dose: 20 mg - Labs Labs: 07/18/18 05:00 07/18/18 05:00 PT 14.9 Seconds (9.8-13.1) H 07/18/18 05:00 INR 1.3 07/18/18 05:00 APTT 25.6 Seconds (25.6-37.1) 07/18/18 05:00 - Additional Findings Additional findings: - Constitutional Appears: Well, No Acute Distress - Head Exam Head Exam: ATRAUMATIC, NORMOCEPHALIC - Eye Exam Eye Exam: PERRL - ENT Exam ENT Exam: Mucous Membranes Moist - Respiratory Exam Respiratory Exam: NORMAL BREATHING PATTERN Additional comments: - GI/Abdominal Exam GI & Abdominal Exam: Soft, Normal Bowel Sounds. absent: Distended, Firm, Guarding, Rigid Additional comments: dressing and packing changed, tenderness at the surgical site - Extremities Exam Extremities Exam: Normal Capillary Refill Additional comments: Picc line - Neurological Exam Neurological Exam: Alert, Awake - Skin Skin Exam: Dry, Normal Color, Warm Assessment and Plan - Assessment and Plan (Free Text) Assessment: 87 F who presents with septic shock, acute respiratory failure, elevated lactate, s/p exploratory laparotomy, lysis of adhesion, and repair of enterotomy x 2 for SBO POD#6 Plan: Neuro -HOB > 30 -Pain control -Aricept -Remeron -patient passed swallow eval Resp -Maintain SaO2 > 92% -Wean from HFNC -IS/flutter valve -Pulm following -CXR shows effusion CV -Maintain MAP > 65 -monitor for arrythmia -Cardio following GI -swallow eval ordered- if passed, patient can be started on full liquid diet -Protonix -Zofran PRN -Strict I's & O's -Maintain Urine output 0.5-1 cc/kg/hr -Replete electrolytes PRN Endo -Maintain euglycemia 140-180 Heme -Monitor H/H and platelets -Chemical and mechanical DVT ppx ID -ID consult, f/u recommendations -Flagyl, Vanco, Fluconazole -Trend WBC MSK OOB to chair/Encourage ambulation PT <Wilder Bullock N - Last Filed: 07/19/18 12:04> Objective - Vital Signs/Intake and Output Vital Signs (last 24 hours): Temp Pulse Resp BP Pulse Ox 98.3 F 89 16 136/68 94 L 07/19/18 08:00 07/19/18 10:00 07/19/18 11:10 07/19/18 10:00 07/19/18 10:00 Intake and Output: 07/19/18 07/19/18 06:59 18:59 Intake Total 950 620 Balance 950 620 - Medications Medications: Current Medications Acetylcysteine (Acetylcysteine 20%) 2 ml INH RBID [facility] Last Admin: 07/19/18 07:31 Dose: 2 ml Albuterol Sulfate (Albuterol 0.083% Inhal Julieth (2.5 Mg/3 Ml) Ud) 2.5 mg INH RBID [facility] Last Admin: 07/19/18 07:31 Dose: 2.5 mg Albuterol/Ipratropium (Duoneb 3 Mg/0.5 Mg (3 Ml) Ud) 3 ml INH RQ6 PRN PRN Reason: Shortness of Breath Last Admin: 07/15/18 21:58 Dose: 3 ml Digoxin (Digoxin) 0.125 mg PO DAILY [facility] Last Admin: 07/19/18 11:30 Dose: 0.125 mg Donepezil HCl (Aricept) 10 mg NG HS [facility] Last Admin: 07/18/18 21:25 Dose: 10 mg Enoxaparin Sodium (Lovenox) 30 mg SC DAILY [facility]; Protocol Last Admin: 07/19/18 08:42 Dose: 30 mg Metronidazole (Flagyl 500mg/100ml Ns) 100 mls @ 100 mls/hr IVPB Q8 [facility]; Protocol Last Admin: 07/19/18 08:41 Dose: 100 mls/hr Fluconazole (Diflucan Iv 100 Mg/50 Ml Ns) 50 mls @ 50 mls/hr IVPB DAILY [facility]; Protocol Last Admin: 07/19/18 08:39 Dose: 50 mls/hr Vancomycin HCl 750 mg/ Sodium (Chloride) 250 mls @ 166.667 mls/hr IVPB Q12 [facility]; Protocol Last Admin: 07/19/18 08:48 Dose: 166.667 mls/hr Meropenem 1 gm/ Sodium (Chloride) 100 mls @ 100 mls/hr IVPB Q8 [facility]; Protocol Last Admin: 07/19/18 08:43 Dose: 100 mls/hr Ketorolac Tromethamine (Toradol) 30 mg IVP Q6 PRN PRN Reason: Pain, severe (8-10) Last Admin: 07/19/18 02:26 Dose: 30 mg Mirtazapine (Remeron) 30 mg PO HS [facility] Last Admin: 03/21/19 21:26 Dose: 30 mg Ondansetron HCl (Zofran Inj) 4 mg IVP Q6 PRN PRN Reason: Nausea/Vomiting Last Admin: 07/12/18 10:40 Dose: 4 mg Pantoprazole Sodium (Protonix Inj) 40 mg IVP DAILY [facility] Last Admin: 07/19/18 08:47 Dose: 40 mg Pravastatin Sodium (Pravachol) 20 mg PO HS [facility] Last Admin: 07/18/18 21:25 Dose: 20 mg - Labs Labs: 07/19/18 05:00 07/19/18 05:00 PT 14.9 Seconds (9.8-13.1) H 07/18/18 05:00 INR 1.3 07/18/18 05:00 APTT 25.6 Seconds (25.6-37.1) 07/18/18 05:00 Assessment and Plan - Assessment and Plan (Free Text) Plan: All medical record entries made by the resident were at my direction. I have r eviewed the chart and agree that the record accurately reflects my personal performance of the history, physical exam, medical decision making. I have also personally directed, reviewed, and agree with the resident disposition.
--- NOTE | 2018-07-18 09:33 | CP.PCM.PN ---
Subjective - Date & Time of Evaluation Date of Evaluation: 07/18/18 Time of Evaluation: 09:33 - Subjective Subjective: Seen in the ICU. Remains in bed, awake and oriented. Supplemental potassium being given. Tmax 99.8, SpO2 92%, had a fib yesterday and placed on "Cardizem drip. Had BM overnight. Appears comfortable this morning. Awake and alert, oriented and responsive. Follows simple commands. Dependant edema + w/o cysnosis. Extremities are warm and pink. Neck is supple and trachea midline. No dullness on percussion of the anterior chest wall. Breath sounds are decreased posteriorly, more left than right. No audible wheezing, faint bronchial breath sounds in LLL. Heart sounds slightly distant and regular. Abdominal dressing dry and intact, hypo bowel sounds. Needs to be OOB to chair today. CPT with PEP/flutter valve device. Mucomyst/albuterol not temporally related to last nights arrhythmia. Duoneb remains on PRN schedule. May still require thoracentesis if tomorrow's CXR shows persistent effusion. Objective - Vital Signs/Intake and Output Vital Signs (last 24 hours): Temp Pulse Resp BP Pulse Ox 99.5 F 87 22 130/65 92 L 07/18/18 08:00 07/18/18 08:00 07/18/18 08:30 07/18/18 08:00 07/18/18 08:00 Intake and Output: 07/17/18 07/18/18 23:59 11:59 Intake Total 1795 585 Output Total 550 400 Balance 1245 185 - Medications Medications: Current Medications Acetylcysteine (Acetylcysteine 20%) 2 ml INH RBID [facility] Last Admin: 07/18/18 08:29 Dose: 2 ml Albuterol Sulfate (Albuterol 0.083% Inhal Julieth (2.5 Mg/3 Ml) Ud) 2.5 mg INH RBID [facility] Last Admin: 07/18/18 08:29 Dose: 2.5 mg Albuterol/Ipratropium (Duoneb 3 Mg/0.5 Mg (3 Ml) Ud) 3 ml INH RQ6 PRN PRN Reason: Shortness of Breath Last Admin: 07/15/18 21:58 Dose: 3 ml Donepezil HCl (Aricept) 10 mg NG HS [facility] Last Admin: 07/17/18 22:09 Dose: 10 mg Enoxaparin Sodium (Lovenox) 30 mg SC DAILY [facility]; Protocol Last Admin: 07/18/18 08:51 Dose: 30 mg Metronidazole (Flagyl 500mg/100ml Ns) 100 mls @ 100 mls/hr IVPB Q8 [facility]; Protocol Last Admin: 07/18/18 00:01 Dose: 100 mls/hr Fluconazole (Diflucan Iv 100 Mg/50 Ml Ns) 50 mls @ 50 mls/hr IVPB DAILY [facility]; Protocol Last Admin: 07/17/18 12:46 Dose: 50 mls/hr Vancomycin HCl 750 mg/ Sodium (Chloride) 250 mls @ 166.667 mls/hr IVPB Q12 [facility]; Protocol Last Admin: 07/16/18 10:44 Dose: Not Given Meropenem 1 gm/ Sodium (Chloride) 100 mls @ 100 mls/hr IVPB Q8 [facility]; Protocol Last Admin: 07/18/18 08:51 Dose: 100 mls/hr Diltiazem HCl 125 mg/ Sodium (Chloride) 125 mls @ 5 mls/hr IV .Q24H [facility]; Protocol Last Admin: 07/17/18 17:23 Dose: 5 mg/hr, 5 mls/hr Dextrose/Lactated Ringer's (Dextrose 5%/Lactated Ringer's) 1,000 mls @ 100 mls/hr IV .Q10H [facility] Stop: 07/18/18 19:08 Last Admin: 07/17/18 23:53 Dose: 100 mls/hr Potassium Chloride (Potassium Chloride 10 Meq/100 Ml) 100 mls @ 100 mls/hr IVPB Q1 [facility] Stop: 07/18/18 13:59 Last Admin: 07/18/18 08:35 Dose: 100 mls/hr Ketorolac Tromethamine (Toradol) 30 mg IVP Q6 PRN PRN Reason: Pain, severe (8-10) Last Admin: 07/14/18 19:06 Dose: 30 mg Mirtazapine (Remeron) 30 mg PO HS [facility] Last Admin: 07/17/18 22:09 Dose: 30 mg Ondansetron HCl (Zofran Inj) 4 mg IVP Q6 PRN PRN Reason: Nausea/Vomiting Last Admin: 07/12/18 10:40 Dose: 4 mg Pantoprazole Sodium (Protonix Inj) 40 mg IVP DAILY [facility] Last Admin: 07/18/18 08:51 Dose: 40 mg Pravastatin Sodium (Pravachol) 20 mg PO HS [facility] Last Admin: 07/17/18 22:09 Dose: 20 mg - Labs Labs: 07/18/18 05:00 07/18/18 05:00 PT 14.9 Seconds (9.8-13.1) H 07/18/18 05:00 INR 1.3 07/18/18 05:00 APTT 25.6 Seconds (25.6-37.1) 07/18/18 05:00 Assessment and Plan (1) Pleural effusion Status: Acute (2) Atelectasis Status: Acute (3) Acute respiratory insufficiency Status: Acute
[2018-07-18] MEDS ORDERED: Digoxin 500 mcg/2ml (0.5 mg/2ml) Inj IVP ONE ×2 (10:13→15:00)
--- NOTE | 2018-07-18 10:18 | CP.PCM.PN ---
Subjective - Date & Time of Evaluation Date of Evaluation: 07/18/18 Time of Evaluation: 09:00 - Subjective Subjective: The patient had another bout of atrial fibrillation managed by IV Cardizem. Now the patient has been in a regular sinus rhythm for 4-5 hours. Her blood pressure was 136/70 mmHg. Her urine output was excellent. Her heart sounds were normal. Her lab tests show a normal BUN/creatinine and significant hypokalemia for which she is receiving intravenous potassium. I have ordered intravenous digoxin 0.5 mg now and 0.125 mg after 4 hours. Objective - Vital Signs/Intake and Output Vital Signs (last 24 hours): Temp Pulse Resp BP Pulse Ox 99.5 F 87 22 130/65 92 L 07/18/18 08:00 07/18/18 08:00 07/18/18 08:30 07/18/18 08:00 07/18/18 08:00 Intake and Output: 07/18/18 07/18/18 06:59 18:59 Intake Total 1430 Output Total 400 Balance 1030 - Medications Medications: Current Medications Acetylcysteine (Acetylcysteine 20%) 2 ml INH RBID [facility] Last Admin: 07/18/18 08:29 Dose: 2 ml Albuterol Sulfate (Albuterol 0.083% Inhal Julieth (2.5 Mg/3 Ml) Ud) 2.5 mg INH RBID [facility] Last Admin: 07/18/18 08:29 Dose: 2.5 mg Albuterol/Ipratropium (Duoneb 3 Mg/0.5 Mg (3 Ml) Ud) 3 ml INH RQ6 PRN PRN Reason: Shortness of Breath Last Admin: 07/15/18 21:58 Dose: 3 ml Digoxin (Lanoxin) 0.5 mg IVP ONCE ONE Stop: 07/18/18 10:14 Digoxin (Lanoxin) 0.125 mg IVP ONCE ONE Stop: 07/18/18 15:01 Donepezil HCl (Aricept) 10 mg NG HS [facility] Last Admin: 07/17/18 22:09 Dose: 10 mg Enoxaparin Sodium (Lovenox) 30 mg SC DAILY [facility]; Protocol Last Admin: 07/18/18 08:51 Dose: 30 mg Metronidazole (Flagyl 500mg/100ml Ns) 100 mls @ 100 mls/hr IVPB Q8 [facility]; Protocol Last Admin: 07/18/18 00:01 Dose: 100 mls/hr Fluconazole (Diflucan Iv 100 Mg/50 Ml Ns) 50 mls @ 50 mls/hr IVPB DAILY [facility]; Protocol Last Admin: 07/17/18 12:46 Dose: 50 mls/hr Vancomycin HCl 750 mg/ Sodium (Chloride) 250 mls @ 166.667 mls/hr IVPB Q12 [facility]; Protocol Last Admin: 07/16/18 10:44 Dose: Not Given Meropenem 1 gm/ Sodium (Chloride) 100 mls @ 100 mls/hr IVPB Q8 [facility]; Protocol Last Admin: 07/18/18 08:51 Dose: 100 mls/hr Dextrose/Lactated Ringer's (Dextrose 5%/Lactated Ringer's) 1,000 mls @ 100 mls/hr IV .Q10H [facility] Stop: 07/18/18 19:08 Last Admin: 07/17/18 23:53 Dose: 100 mls/hr Potassium Chloride (Potassium Chloride 10 Meq/100 Ml) 100 mls @ 100 mls/hr IVPB Q1 [facility] Stop: 07/18/18 13:59 Last Admin: 07/18/18 10:08 Dose: 100 mls/hr Ketorolac Tromethamine (Toradol) 30 mg IVP Q6 PRN PRN Reason: Pain, severe (8-10) Last Admin: 07/14/18 19:06 Dose: 30 mg Mirtazapine (Remeron) 30 mg PO HS [facility] Last Admin: 07/17/18 22:09 Dose: 30 mg Ondansetron HCl (Zofran Inj) 4 mg IVP Q6 PRN PRN Reason: Nausea/Vomiting Last Admin: 07/12/18 10:40 Dose: 4 mg Pantoprazole Sodium (Protonix Inj) 40 mg IVP DAILY [facility] Last Admin: 07/18/18 08:51 Dose: 40 mg Pravastatin Sodium (Pravachol) 20 mg PO HS [facility] Last Admin: 07/17/18 22:09 Dose: 20 mg - Labs Labs: 07/18/18 05:00 07/18/18 05:00 PT 14.9 Seconds (9.8-13.1) H 07/18/18 05:00 INR 1.3 07/18/18 05:00 APTT 25.6 Seconds (25.6-37.1) 07/18/18 05:00
--- NOTE | 2018-07-18 11:48 | CP.PCM.PN ---
Subjective - Date & Time of Evaluation Date of Evaluation: 07/18/18 Time of Evaluation: 11:48 - Subjective Subjective: ID Note- Pt. seen and examined in ICU today. pt. is sitting up in chair today and smiles and is in good spirits. awake and alert. she deneis any fever or chills, denies any complaints except states her feet feel slightly sleepy but she can move them without any problems. Objective - Vital Signs/Intake and Output Vital Signs (last 24 hours): Temp Pulse Resp BP Pulse Ox 99.7 F H 90 25 H 130/56 L 93 L 07/18/18 10:00 07/18/18 11:00 07/18/18 11:00 07/18/18 11:00 07/18/18 11:00 Intake and Output: 07/18/18 07/18/18 06:59 18:59 Intake Total 1430 700 Output Total 400 Balance 1030 700 - Medications Medications: Current Medications Acetylcysteine (Acetylcysteine 20%) 2 ml INH RBID [facility] Last Admin: 07/18/18 08:29 Dose: 2 ml Albuterol Sulfate (Albuterol 0.083% Inhal Julieth (2.5 Mg/3 Ml) Ud) 2.5 mg INH RBID [facility] Last Admin: 07/18/18 08:29 Dose: 2.5 mg Albuterol/Ipratropium (Duoneb 3 Mg/0.5 Mg (3 Ml) Ud) 3 ml INH RQ6 PRN PRN Reason: Shortness of Breath Last Admin: 07/15/18 21:58 Dose: 3 ml Digoxin (Lanoxin) 0.125 mg IVP ONCE ONE Stop: 07/18/18 15:01 Donepezil HCl (Aricept) 10 mg NG HS [facility] Last Admin: 07/17/18 22:09 Dose: 10 mg Enoxaparin Sodium (Lovenox) 30 mg SC DAILY [facility]; Protocol Last Admin: 07/18/18 08:51 Dose: 30 mg Metronidazole (Flagyl 500mg/100ml Ns) 100 mls @ 100 mls/hr IVPB Q8 [facility]; Protocol Last Admin: 07/18/18 10:12 Dose: 100 mls/hr Fluconazole (Diflucan Iv 100 Mg/50 Ml Ns) 50 mls @ 50 mls/hr IVPB DAILY [facility]; Protocol Last Admin: 07/17/18 12:46 Dose: 50 mls/hr Vancomycin HCl 750 mg/ Sodium (Chloride) 250 mls @ 166.667 mls/hr IVPB Q12 [facility]; Protocol Last Admin: 07/16/18 10:44 Dose: Not Given Meropenem 1 gm/ Sodium (Chloride) 100 mls @ 100 mls/hr IVPB Q8 [facility]; Protocol Last Admin: 07/18/18 08:51 Dose: 100 mls/hr Dextrose/Lactated Ringer's (Dextrose 5%/Lactated Ringer's) 1,000 mls @ 100 mls/hr IV .Q10H [facility] Stop: 07/18/18 19:08 Last Admin: 07/17/18 23:53 Dose: 100 mls/hr Ketorolac Tromethamine (Toradol) 30 mg IVP Q6 PRN PRN Reason: Pain, severe (8-10) Last Admin: 07/14/18 19:06 Dose: 30 mg Mirtazapine (Remeron) 30 mg PO HS [facility] Last Admin: 07/17/18 22:09 Dose: 30 mg Ondansetron HCl (Zofran Inj) 4 mg IVP Q6 PRN PRN Reason: Nausea/Vomiting Last Admin: 07/12/18 10:40 Dose: 4 mg Pantoprazole Sodium (Protonix Inj) 40 mg IVP DAILY [facility] Last Admin: 07/18/18 08:51 Dose: 40 mg Potassium Chloride (Potassium Chloride Oral Soln) 40 meq PO Q2H [facility] Stop: 07/18/18 16:31 Pravastatin Sodium (Pravachol) 20 mg PO HS [facility] Last Admin: 07/17/18 22:09 Dose: 20 mg - Labs Labs: - Additional Findings Additional findings: Constitutional Appears: No Acute Distress Additional comments: awake and alert - Head Exam Head Exam: ATRAUMATIC - Eye Exam Eye Exam: EOMI, PERRL - Neck Exam Neck exam: Positive for: Full Rom - Respiratory Exam Additional comments: breath sounds heard b/l no wheezing slightly decreased at left base - Cardiovascular Exam Cardiovascular Exam: RRR, +S1, +S2 - GI/Abdominal Exam GI & Abdominal Exam: Soft Additional comments: mid lower abdomen surgical site with sutures in place, no more packing no discharge, no erythema no tenderness soft - Extremities Exam Extremities exam: Positive for: normal inspection except 1+ LE edema B/L - Neurological Exam Neurological exam: AAO x 3 today. has full sensation on b/l feet and hands advised pt. to move her toes and fingers every few minutes advised her sensation might be because she has been in bed not moving many days Laboratory Results - last 72 hr 07/15/18 07/15/18 07/16/18 23:00 23:00 04:20 WBC 14.9 H RBC 3.81 Hgb 11.2 L Hct 34.6 MCV 90.7 MCH 29.4 MCHC 32.4 L RDW 15.0 H Plt Count 126 L PT INR APTT Fibrinogen Sodium 142 Potassium 3.6 Chloride 105 Carbon Dioxide 24 Anion Gap 17 BUN 23 H Creatinine 0.8 Est GFR ( Amer) > 60 Est GFR (Non-Af Amer) > 60 POC Glucose (mg/dL) Random Glucose 124 H Lactic Acid 1.2 Calcium 8.6 Phosphorus Magnesium Total Bilirubin AST ALT Alkaline Phosphatase Troponin I 0.2120 H* Total Protein Albumin Globulin Albumin/Globulin Ratio Vancomycin Trough 07/16/18 07/16/18 07/16/18 04:20 04:20 06:59 WBC RBC Hgb Hct MCV MCH MCHC RDW Plt Count PT INR APTT Fibrinogen Sodium 142 Potassium 3.1 L Chloride 106 Carbon Dioxide 26 Anion Gap 13 BUN 22 H Creatinine 0.7 Est GFR ( Amer) > 60 Est GFR (Non-Af Amer) > 60 POC Glucose (mg/dL) Random Glucose 92 Lactic Acid Calcium 8.0 L Phosphorus Magnesium Total Bilirubin 0.3 AST 22 ALT 29 Alkaline Phosphatase 103 Troponin I 0.2380 H* Total Protein 4.4 L Albumin 2.3 L Globulin 2.2 Albumin/Globulin Ratio 1.1 Vancomycin Trough 18.9 H 07/17/18 07/17/18 07/17/18 05:05 05:05 05:05 WBC 10.3 RBC 3.71 L Hgb 11.0 L Hct 33.6 L MCV 90.5 MCH 29.7 MCHC 32.9 L RDW 14.9 H Plt Count 103 L D PT INR APTT Fibrinogen Sodium 145 Potassium 2.9 L Chloride 106 Carbon Dioxide 24 Anion Gap 18 BUN 20 H Creatinine 0.6 L Est GFR ( Amer) > 60 Est GFR (Non-Af Amer) > 60 POC Glucose (mg/dL) Random Glucose 61 L Lactic Acid Calcium 8.0 L Phosphorus Magnesium Total Bilirubin 0.4 AST 41 H D ALT 35 Alkaline Phosphatase 144 H D Troponin I Total Protein 4.3 L Albumin 2.1 L Globulin 2.2 Albumin/Globulin Ratio 1.0 Vancomycin Trough 7.8 07/17/18 07/17/18 07/17/18 09:44 11:30 16:34 WBC RBC Hgb Hct MCV MCH MCHC RDW Plt Count PT INR APTT Fibrinogen Sodium Potassium Chloride Carbon Dioxide Anion Gap BUN Creatinine Est GFR ( Amer) Est GFR (Non-Af Amer) POC Glucose (mg/dL) 74 82 127 H Random Glucose Lactic Acid Calcium Phosphorus Magnesium Total Bilirubin AST ALT Alkaline Phosphatase Troponin I Total Protein Albumin Globulin Albumin/Globulin Ratio Vancomycin Trough 07/18/18 07/18/18 07/18/18 05:00 05:00 05:00 WBC 10.6 RBC 3.79 L Hgb 11.3 L Hct 33.5 L MCV 88.3 D MCH 29.7 MCHC 33.6 RDW 14.3 Plt Count 132 PT 14.9 H INR 1.3 APTT 25.6 Fibrinogen 589 H Sodium 146 Potassium 2.8 L Chloride 113 H Carbon Dioxide 29 Anion Gap 7 L BUN 17 Creatinine 0.5 L Est GFR ( Amer) > 60 Est GFR (Non-Af Amer) > 60 POC Glucose (mg/dL) Random Glucose 144 H Lactic Acid Calcium 7.7 L Phosphorus Magnesium Total Bilirubin 0.4 AST 29 ALT 29 Alkaline Phosphatase 126 Troponin I Total Protein 4.2 L Albumin 1.8 L Globulin 2.3 Albumin/Globulin Ratio 0.8 L Vancomycin Trough 07/18/18 11:00 WBC RBC Hgb Hct MCV MCH MCHC RDW Plt Count PT INR APTT Fibrinogen Sodium Potassium Chloride Carbon Dioxide Anion Gap BUN Creatinine Est GFR ( Amer) Est GFR (Non-Af Amer) POC Glucose (mg/dL) Random Glucose Lactic Acid Calcium Phosphorus 1.4 L Magnesium 2.2 Total Bilirubin AST ALT Alkaline Phosphatase Troponin I Total Protein Albumin Globulin Albumin/Globulin Ratio Vancomycin Trough Microbiology 07/13/18 17:00 Blood-Venous Blood Culture - Preliminary NO GROWTH AFTER 4 DAYS 07/13/18 16:00 Blood-Venous Blood Culture - Preliminary NO GROWTH AFTER 4 DAYS 07/14/18 17:00 Blood-Venous Blood Culture - Preliminary NO GROWTH AFTER 3 DAYS 07/14/18 15:58 Blood-Venous Blood Culture - Preliminary NO GROWTH AFTER 3 DAYS 07/14/18 16:00 Sputum Gram Stain - Final 07/14/18 16:00 Sputum Sputum Culture - Final No growth. 07/13/18 17:21 Urine,Elizondo Urine Culture - Final No Growth (<1,000 CFU/ML) 07/10/18 19:55 Urine Random Urine Culture - Final Gram Negative [place] Patient Name / ID : ROLANDO DIAZ D / [id number] Exam Date : 07/18/2018 04:58:08 ( Approved ) Study Comment : Sex / Age : F / 87Y Creator : Rafael Prescott MD Dictator : Rafael Prescott MD Mail Order Biller : Licensed Psychologist Manager : Rafael Prescott MD Approver2 : Report Date : 07/18/2018 13:01:25 My Comment : Date of service: 07/18/2018 HISTORY: Pleural effusions. COMPARISON: 07/16/2018. FINDINGS: LUNGS: Stable lower lobe infiltrates. PLEURA: Left and right pleural effusions inseparable from adjacent consolidative change. No pneumothorax identified CARDIOVASCULAR: Atherosclerotic calcifications identified primarily aortic arch. PICC line in satisfactory position recently placed a new finding compared to the prior chest radiograph. Tip in the SVC. OSSEOUS STRUCTURES: No significant abnormalities. VISUALIZED UPPER ABDOMEN: Normal. OTHER FINDINGS: None. IMPRESSION: Stable pleural and pulmonary parenchymal findings. PICC line in satisfactory position Assessment and Plan (1) Small bowel obstruction Status: Acute (2) Sepsis Status: Acute - Assessment and Plan (Free Text) Assessment: A/P- 87 year old female with multiple past medical history and s/p past hemicolectomy and reversal of colostomy who was admitted with abd . pain and found to have SBO and is POD #1 s/p Exploratory laparotomy, extenive lysis of adhesions, repair of enterotomies x 2, washout. clinically improved. afebrile leukocytosis resolved. blood cx- neg x 4 Initial urine cx- GNR prelim sputum cx- neg repeat urine cx- neg ABD ct and CXR report noted-pleural effusion plan- advise to continue empiric broad coverage with meropenem, flagyl,vanco and fluconazole pending further results.day #6 canr esume vanco today since trough was normal value. keep vanco trough <15. all above d/w [employer] . Critical care time spent 40 minutes.
[2018-07-18] MEDS: Fluconazole IV 100mg/50 ml NS 50 ML IVPB SCH (12:57)
[2018-07-18] MEDS: Potassium Chloride 20 mEq/15 ml LIQ UD PO SCH ×4 (12:59→18:47)
--- NOTE | 2018-07-18 13:07 | RAD ---
Date of service: 07/18/2018 HISTORY: Pleural effusions. COMPARISON: 07/16/2018. FINDINGS: LUNGS: Stable lower lobe infiltrates. PLEURA: Left and right pleural effusions inseparable from adjacent consolidative change. No pneumothorax identified CARDIOVASCULAR: Atherosclerotic calcifications identified primarily aortic arch. PICC line in satisfactory position recently placed a new finding compared to the prior chest radiograph. Tip in the SVC. OSSEOUS STRUCTURES: No significant abnormalities. VISUALIZED UPPER ABDOMEN: Normal. OTHER FINDINGS: None. IMPRESSION: Stable pleural and pulmonary parenchymal findings. PICC line in satisfactory position
[2018-07-18] MEDS: Dextrose 5%/Lactated Ringer's 1,000 ML IV SCH (16:58)
[2018-07-18] MEDS: Pravastatin Sodium 20 MG TAB PO SCH (21:25)
[2018-07-19] MEDS: Meropenem 1 GM in Sodium Chloride 0.9% 100 ML IVPB SCH ×3 (00:29→16:26)
[2018-07-19] MEDS: metroNIDAZOLE 500mg/100ml NS 100 ML IVPB SCH ×3 (00:30→16:26)
--- NOTE | 2018-07-19 00:53 | CP.PCM.PN ---
Subjective - Date & Time of Evaluation Date of Evaluation: 07/18/18 Time of Evaluation: 14:00 - Subjective Subjective: Feels tired. Objective - Vital Signs/Intake and Output Vital Signs (last 24 hours): Temp Pulse Resp BP Pulse Ox 97.7 F 90 22 149/73 92 L 07/19/18 00:00 07/19/18 00:00 07/19/18 00:09 07/19/18 00:00 07/19/18 00:00 Intake and Output: 07/18/18 07/19/18 18:59 06:59 Intake Total 2100 550 Balance 2100 550 - Medications Medications: Current Medications Acetylcysteine (Acetylcysteine 20%) 2 ml INH RBID [facility] Last Admin: 07/18/18 19:18 Dose: 2 ml Albuterol Sulfate (Albuterol 0.083% Inhal Julieth (2.5 Mg/3 Ml) Ud) 2.5 mg INH RBID [facility] Last Admin: 07/18/18 19:17 Dose: 2.5 mg Albuterol/Ipratropium (Duoneb 3 Mg/0.5 Mg (3 Ml) Ud) 3 ml INH RQ6 PRN PRN Reason: Shortness of Breath Last Admin: 07/15/18 21:58 Dose: 3 ml Donepezil HCl (Aricept) 10 mg NG HS [facility] Last Admin: 07/18/18 21:25 Dose: 10 mg Enoxaparin Sodium (Lovenox) 30 mg SC DAILY [facility]; Protocol Last Admin: 07/18/18 08:51 Dose: 30 mg Metronidazole (Flagyl 500mg/100ml Ns) 100 mls @ 100 mls/hr IVPB Q8 [facility]; Protocol Last Admin: 07/19/18 00:30 Dose: 100 mls/hr Fluconazole (Diflucan Iv 100 Mg/50 Ml Ns) 50 mls @ 50 mls/hr IVPB DAILY [facility]; Protocol Last Admin: 07/18/18 12:57 Dose: 50 mls/hr Vancomycin HCl 750 mg/ Sodium (Chloride) 250 mls @ 166.667 mls/hr IVPB Q12 [facility]; Protocol Last Admin: 07/18/18 21:26 Dose: 166.667 mls/hr Meropenem 1 gm/ Sodium (Chloride) 100 mls @ 100 mls/hr IVPB Q8 [facility]; Protocol Last Admin: 07/19/18 00:29 Dose: 100 mls/hr Ketorolac Tromethamine (Toradol) 30 mg IVP Q6 PRN PRN Reason: Pain, severe (8-10) Last Admin: 07/14/18 19:06 Dose: 30 mg Mirtazapine (Remeron) 30 mg PO HS [facility] Last Admin: 07/18/18 21:26 Dose: 30 mg Ondansetron HCl (Zofran Inj) 4 mg IVP Q6 PRN PRN Reason: Nausea/Vomiting Last Admin: 07/12/18 10:40 Dose: 4 mg Pantoprazole Sodium (Protonix Inj) 40 mg IVP DAILY [facility] Last Admin: 07/18/18 08:51 Dose: 40 mg Pravastatin Sodium (Pravachol) 20 mg PO HS [facility] Last Admin: 07/18/18 21:25 Dose: 20 mg - Labs Labs: 07/18/18 05:00 07/18/18 05:00 PT 14.9 Seconds (9.8-13.1) H 07/18/18 05:00 INR 1.3 07/18/18 05:00 APTT 25.6 Seconds (25.6-37.1) 07/18/18 05:00 - Head Exam Head Exam: ATRAUMATIC - Eye Exam Eye Exam: Normal appearance - ENT Exam ENT Exam: Mucous Membranes Dry - Respiratory Exam Respiratory Exam: NORMAL BREATHING PATTERN - Cardiovascular Exam Cardiovascular Exam: +S1, +S2 - GI/Abdominal Exam GI & Abdominal Exam: Normal Bowel Sounds Assessment and Plan (1) Thrombocytopenia Assessment & Plan: mild likely related to acute illness and possible medication effect improving Status: Acute (2) Coagulopathy Assessment & Plan: nutritional Status: Acute
[2018-07-19 05:57] LABS: HEMOGLOBIN 10.9 g/dL (12.0-16.0); MEAN CELL VOLUME 89.9 fl (81.0-99.0); MEAN CORPUSCULAR HEMOGLOBIN 30.1 pg (27.0-31.0); MEAN CORPUSCULAR HGB CONC 33.5 g/dL (33.0-37.0); RBC 3.62 Mil/uL (3.80-5.20); RED CELL DISTRIBUTION WIDTH 14.8 % (11.5-14.5); WHITE BLOOD COUNT 10.3 K/uL (4.8-10.8)
[2018-07-19 06:17] LABS: ALBUMIN 2.1 g/dL (3.5-5.0); ALT/SGPT 28 U/L (9-52); AST/SGOT 24 U/L (14-36); BLOOD UREA NITROGEN 15 mg/dl (7-17); GFR NON-AFRICAN AMERICAN > 60
--- NOTE | 2018-07-19 07:16 | CP.PCM.PN ---
Subjective - Date & Time of Evaluation Date of Evaluation: 07/19/18 Time of Evaluation: 07:16 - Subjective Subjective: Patient seen and examined at bedside, ICU day 7, awake, alert and oriented x3 NSR today on monitor. Sitting in chair, noted mild dyspneic, no distress, no abd pain, tolerating PO, denies CP, no sob, fever, reports 1 BM this morning. HF oxygen via a venti mask 40% at 30 lpm, with SpO2 95%. VSS, afebrile. Urinary incontinence noted per nurse Objective - Vital Signs/Intake and Output Vital Signs (last 24 hours): Temp Pulse Resp BP Pulse Ox 98.0 F 86 19 146/68 93 L 07/19/18 04:00 07/19/18 05:56 07/19/18 05:56 07/19/18 05:56 07/19/18 05:56 Intake and Output: 07/19/18 07/19/18 06:59 18:59 Intake Total 950 Balance 950 - Medications Medications: Current Medications Acetylcysteine (Acetylcysteine 20%) 2 ml INH RBID [facility] Last Admin: 07/18/18 19:18 Dose: 2 ml Albuterol Sulfate (Albuterol 0.083% Inhal Julieth (2.5 Mg/3 Ml) Ud) 2.5 mg INH RBID [facility] Last Admin: 07/18/18 19:17 Dose: 2.5 mg Albuterol/Ipratropium (Duoneb 3 Mg/0.5 Mg (3 Ml) Ud) 3 ml INH RQ6 PRN PRN Reason: Shortness of Breath Last Admin: 07/15/18 21:58 Dose: 3 ml Donepezil HCl (Aricept) 10 mg NG HS [facility] Last Admin: 07/18/18 21:25 Dose: 10 mg Enoxaparin Sodium (Lovenox) 30 mg SC DAILY [facility]; Protocol Last Admin: 07/18/18 08:51 Dose: 30 mg Metronidazole (Flagyl 500mg/100ml Ns) 100 mls @ 100 mls/hr IVPB Q8 [facility]; Protocol Last Admin: 07/19/18 00:30 Dose: 100 mls/hr Fluconazole (Diflucan Iv 100 Mg/50 Ml Ns) 50 mls @ 50 mls/hr IVPB DAILY [facility]; Protocol Last Admin: 07/18/18 12:57 Dose: 50 mls/hr Vancomycin HCl 750 mg/ Sodium (Chloride) 250 mls @ 166.667 mls/hr IVPB Q12 [facility]; Protocol Last Admin: 07/18/18 21:26 Dose: 166.667 mls/hr Meropenem 1 gm/ Sodium (Chloride) 100 mls @ 100 mls/hr IVPB Q8 [facility]; Protocol Last Admin: 07/19/18 00:29 Dose: 100 mls/hr Ketorolac Tromethamine (Toradol) 30 mg IVP Q6 PRN PRN Reason: Pain, severe (8-10) Last Admin: 07/19/18 02:26 Dose: 30 mg Mirtazapine (Remeron) 30 mg PO HS [facility] Last Admin: 07/18/18 21:26 Dose: 30 mg Ondansetron HCl (Zofran Inj) 4 mg IVP Q6 PRN PRN Reason: Nausea/Vomiting Last Admin: 07/12/18 10:40 Dose: 4 mg Pantoprazole Sodium (Protonix Inj) 40 mg IVP DAILY [facility] Last Admin: 07/18/18 08:51 Dose: 40 mg Pravastatin Sodium (Pravachol) 20 mg PO HS [facility] Last Admin: 07/18/18 21:25 Dose: 20 mg - Labs Labs: 07/19/18 05:00 07/19/18 05:00 PT 14.9 Seconds (9.8-13.1) H 07/18/18 05:00 INR 1.3 07/18/18 05:00 APTT 25.6 Seconds (25.6-37.1) 07/18/18 05:00 - Constitutional Appears: No Acute Distress - Head Exam Head Exam: NORMAL INSPECTION - Eye Exam Eye Exam: EOMI, PERRL - Respiratory Exam Respiratory Exam: Decreased Breath Sounds (bibasilar). absent: Rales, Wheezes, Respiratory Distress - Cardiovascular Exam Cardiovascular Exam: REGULAR RHYTHM, +S1, +S2 - GI/Abdominal Exam GI & Abdominal Exam: Soft. absent: Distended, Guarding, Tenderness Additional comments: Wound vac noted in place, no erythema or bruises noted around wound - Extremities Exam Additional comments: R upper extr noted swollen again today, RP 2+ no tender to touch, warm; no pedal edema or calf tenderness - Neurological Exam Neurological Exam: Alert, Awake, Oriented x3 - Skin Skin Exam: Dry, Warm Assessment and Plan - Assessment and Plan (Free Text) Assessment: 87 F who presents with septic shock, acute respiratory failure, elevated lactate , s/p exploratory laparotomy, lysis of adhesion, and repair of enterotomy x2 for SBO POD #7 Chest/ Abd/ pelvis CT: 1.Mildly large left and mild right pleural effusions exert extensive compression atelectasis at the bilateral lower lobes with pneumonia difficult to exclude underlying these findings but not favored either. 2. Stable cardiomegaly. No pericardial effusion. 3. Lax posterior tracheal wall is seen at the central inferior trachea near the thoracic inlet. Extrinsic compression is not excluded, even possibly on the basis of esophageal thickening here. Clinically correlate further. 4. Diminishing small bowel dilatation with oral contrast now present in the ascending colon and proximal transverse segments. Limited postoperative changes seen the abdomen status post prior laparotomy. 5. Extensive colonic diverticulosis without definite diverticulitis. Note is made of distal sigmoid mural thickening clearly identified on the prior CT in this could reflect interval inflammatory or infectious process with ischemia less likely. 6.Note is made of heterogeneous density involving the T6 vertebral body potentially reflecting Paget's disease or other benign productive bony process. Plan: Small bowel obstruction/ s/p ex laparotomy POD 7 - General surgery, Dr. Mendez on board - Pain management with toradol - Anti-emetics - continue IVF - Tolerating PO - PT - Wound vac today - incentive spirometry - f/u Surgery recs. AFib - NSR HR 95 on monitor - Cardiology consulted, recs appreciated - started Digoxine 0.125 mg daily - Echo: preserved left ventricular systolic function. Acute VT - likely 2/2 hypotension during surgery or tachycardia during A Fib. - Hemodynamically stable - troponin elevation ( less than 10 days of VT) - Echo: preserved left ventricular systolic function. - Cardiology on board, recs appreciated Bilateral Pleural effusion - Abd CT: larger in left that Right - Pulmonology consult, recs appreciated - f/u CXR - afebrile Hypertension - controlled - metoprolol succinated 50 mg ER Hyperlipidemia - resume pravastatin 20 mg po hs GERD - start protonix 40 mg IVP Hiatal hernia - c/w protonix 40 mg IVP Cognitive impairment - aricept Insomnia/anxiety - remeron and aricept DVT prophylaxis - SCDs - Lovenox 40 sc Case seen and examined with Dr Ernesto Ramírez PGY 2
[2018-07-19] MEDS: Albuterol 0.083% Inhal Sol (2.5 mg/3 mL) UD INH SCH ×2 (07:31→19:14)
[2018-07-19] MEDS: Acetylcysteine 20% Inhal Soln (4ml) INH SCH ×2 (07:31→19:14)
--- NOTE | 2018-07-19 08:28 | CP.PCM.PN ---
Subjective - Date & Time of Evaluation Date of Evaluation: 07/19/18 Time of Evaluation: 08:10 - Subjective Subjective: The patient has been off of Cardizem and amiodarone. She has received 1 dose of 0.5 mg of digoxin followed by a dose of 0.125 mg of digoxin intravenously yesterday and has maintained sinus rhythm at physiologic rates. The patient is resting comfortably and her engine monitor shows sinus rhythm at 84 bpm with rare APCs. Her blood pressure was 130/74 mmHg. There was no evidence of congestive cardiac failure. I started the patient on 0.125 mg of p.o. digoxin every day. Objective - Vital Signs/Intake and Output Vital Signs (last 24 hours): Temp Pulse Resp BP Pulse Ox 98.0 F 86 19 146/68 93 L 07/19/18 04:00 07/19/18 05:56 07/19/18 05:56 07/19/18 05:56 07/19/18 05:56 Intake and Output: 07/19/18 07/19/18 06:59 18:59 Intake Total 950 Balance 950 - Medications Medications: Current Medications Acetylcysteine (Acetylcysteine 20%) 2 ml INH RBID [facility] Last Admin: 07/19/18 07:31 Dose: 2 ml Albuterol Sulfate (Albuterol 0.083% Inhal Julieth (2.5 Mg/3 Ml) Ud) 2.5 mg INH RBID [facility] Last Admin: 07/19/18 07:31 Dose: 2.5 mg Albuterol/Ipratropium (Duoneb 3 Mg/0.5 Mg (3 Ml) Ud) 3 ml INH RQ6 PRN PRN Reason: Shortness of Breath Last Admin: 07/15/18 21:58 Dose: 3 ml Digoxin (Digoxin) 0.125 mg PO DAILY [facility] Donepezil HCl (Aricept) 10 mg NG HS [facility] Last Admin: 07/18/18 21:25 Dose: 10 mg Enoxaparin Sodium (Lovenox) 30 mg SC DAILY [facility]; Protocol Last Admin: 07/18/18 08:51 Dose: 30 mg Metronidazole (Flagyl 500mg/100ml Ns) 100 mls @ 100 mls/hr IVPB Q8 [facility]; Protocol Last Admin: 07/19/18 00:30 Dose: 100 mls/hr Fluconazole (Diflucan Iv 100 Mg/50 Ml Ns) 50 mls @ 50 mls/hr IVPB DAILY [facility]; Protocol Last Admin: 07/18/18 12:57 Dose: 50 mls/hr Vancomycin HCl 750 mg/ Sodium (Chloride) 250 mls @ 166.667 mls/hr IVPB Q12 [facility]; Protocol Last Admin: 07/18/18 21:26 Dose: 166.667 mls/hr Meropenem 1 gm/ Sodium (Chloride) 100 mls @ 100 mls/hr IVPB Q8 [facility]; Protocol Last Admin: 07/19/18 00:29 Dose: 100 mls/hr Ketorolac Tromethamine (Toradol) 30 mg IVP Q6 PRN PRN Reason: Pain, severe (8-10) Last Admin: 07/19/18 02:26 Dose: 30 mg Mirtazapine (Remeron) 30 mg PO HS [facility] Last Admin: 07/18/18 21:26 Dose: 30 mg Ondansetron HCl (Zofran Inj) 4 mg IVP Q6 PRN PRN Reason: Nausea/Vomiting Last Admin: 07/12/18 10:40 Dose: 4 mg Pantoprazole Sodium (Protonix Inj) 40 mg IVP DAILY [facility] Last Admin: 07/18/18 08:51 Dose: 40 mg Pravastatin Sodium (Pravachol) 20 mg PO HS [facility] Last Admin: 07/18/18 21:25 Dose: 20 mg - Labs Labs: 07/19/18 05:00 07/19/18 05:00 PT 14.9 Seconds (9.8-13.1) H 07/18/18 05:00 INR 1.3 07/18/18 05:00 APTT 25.6 Seconds (25.6-37.1) 07/18/18 05:00
[2018-07-19] MEDS: Fluconazole IV 100mg/50 ml NS 50 ML IVPB SCH (08:39)
[2018-07-19] MEDS: Enoxaparin 30 mg Syringe SC SCH (08:42)
--- NOTE | 2018-07-19 09:52 | RAD ---
Date of service: 07/19/2018 HISTORY: Pleural effusion COMPARISON: No prior. FINDINGS: In situ right-sided PICC line with tip in the SVC. LUNGS: Poor inspiration with low lung volumes, crowded bronchovascular markings and mild bibasilar atelectasis and/or infiltrates. Slightly improved pulmonary venous congestive changes. Small bilateral effusions remain. PLEURA: No pneumothorax apparent. CARDIOVASCULAR: Mild aortic atherosclerotic calcification present. Heart size is difficult to assess due to poor inspiration and silhouetting. No pulmonary vascular congestion. OSSEOUS STRUCTURES: No significant abnormalities. VISUALIZED UPPER ABDOMEN: Normal. OTHER FINDINGS: None. IMPRESSION: Poor inspiration with low lung volumes, crowded bronchovascular markings and mild bibasilar atelectasis and/or infiltrates. Slightly improved pulmonary venous congestive changes. Small bilateral effusions remain.
--- NOTE | 2018-07-19 10:32 | CP.PCM.PN ---
<Amadeo Velasquez - Last Filed: 07/19/18 10:30> Subjective - Date & Time of Evaluation Date of Evaluation: 07/19/18 Time of Evaluation: 10:30 - Subjective Subjective: General Surgery Progress Note for Dr. Bullock This 87F was seen and examined this Am at bedside no acute events overnight. She has tolerated full liquid diet. she got out of bed yesterday with the help of physical therapy. She denies any fevers chills chest pain or abdominal pain. She is moving her bowels. Objective - Vital Signs/Intake and Output Vital Signs (last 24 hours): Temp Pulse Resp BP Pulse Ox 98.3 F 84 17 132/61 95 07/19/18 08:00 07/19/18 08:00 07/19/18 08:00 07/19/18 08:00 07/19/18 08:00 Intake and Output: 07/19/18 07/19/18 06:59 18:59 Intake Total 950 620 Balance 950 620 - Medications Medications: Current Medications Acetylcysteine (Acetylcysteine 20%) 2 ml INH RBID [facility] Last Admin: 07/19/18 07:31 Dose: 2 ml Albuterol Sulfate (Albuterol 0.083% Inhal Julieth (2.5 Mg/3 Ml) Ud) 2.5 mg INH RBID [facility] Last Admin: 07/19/18 07:31 Dose: 2.5 mg Albuterol/Ipratropium (Duoneb 3 Mg/0.5 Mg (3 Ml) Ud) 3 ml INH RQ6 PRN PRN Reason: Shortness of Breath Last Admin: 07/15/18 21:58 Dose: 3 ml Digoxin (Digoxin) 0.125 mg PO DAILY [facility] Donepezil HCl (Aricept) 10 mg NG HS [facility] Last Admin: 07/18/18 21:25 Dose: 10 mg Enoxaparin Sodium (Lovenox) 30 mg SC DAILY [facility]; Protocol Last Admin: 07/19/18 08:42 Dose: 30 mg Metronidazole (Flagyl 500mg/100ml Ns) 100 mls @ 100 mls/hr IVPB Q8 [facility]; Protocol Last Admin: 07/19/18 08:41 Dose: 100 mls/hr Fluconazole (Diflucan Iv 100 Mg/50 Ml Ns) 50 mls @ 50 mls/hr IVPB DAILY [facility]; Protocol Last Admin: 07/19/18 08:39 Dose: 50 mls/hr Vancomycin HCl 750 mg/ Sodium (Chloride) 250 mls @ 166.667 mls/hr IVPB Q12 [facility]; Protocol Last Admin: 07/19/18 08:48 Dose: 166.667 mls/hr Meropenem 1 gm/ Sodium (Chloride) 100 mls @ 100 mls/hr IVPB Q8 [facility]; Protocol Last Admin: 07/19/18 08:43 Dose: 100 mls/hr Ketorolac Tromethamine (Toradol) 30 mg IVP Q6 PRN PRN Reason: Pain, severe (8-10) Last Admin: 07/19/18 02:26 Dose: 30 mg Mirtazapine (Remeron) 30 mg PO HS [facility] Last Admin: 07/18/18 21:26 Dose: 30 mg Ondansetron HCl (Zofran Inj) 4 mg IVP Q6 PRN PRN Reason: Nausea/Vomiting Last Admin: 07/12/18 10:40 Dose: 4 mg Pantoprazole Sodium (Protonix Inj) 40 mg IVP DAILY [facility] Last Admin: 07/19/18 08:47 Dose: 40 mg Pravastatin Sodium (Pravachol) 20 mg PO HS [facility] Last Admin: 07/18/18 21:25 Dose: 20 mg - Labs Labs: 07/19/18 05:00 07/19/18 05:00 PT 14.9 Seconds (9.8-13.1) H 07/18/18 05:00 INR 1.3 07/18/18 05:00 APTT 25.6 Seconds (25.6-37.1) 07/18/18 05:00 - Constitutional Appears: Non-toxic, No Acute Distress, Other (Diffusely edematous) - Head Exam Head Exam: ATRAUMATIC, NORMOCEPHALIC - Eye Exam Eye Exam: EOMI - ENT Exam ENT Exam: Mucous Membranes Moist - Respiratory Exam Respiratory Exam: NORMAL BREATHING PATTERN - Cardiovascular Exam Cardiovascular Exam: +S1, +S2 - GI/Abdominal Exam GI & Abdominal Exam: Soft. absent: Distended, Guarding, Rigid, Tenderness Additional comments: Wound with serosanginous output [place] in place Assessment and Plan - Assessment and Plan (Free Text) Assessment: 87 F who presents with septic shock, acute respiratory failure, elevated lactate, s/p exploratory laparotomy, lysis of adhesion, and repair of enterotomy x 2 for SBO POD#7 Plan: Out of bed Advance diet to regular Remove zeke today place wound vac Correct electrolytes PRN Limit IVF Further recs per Dr. Kobe Velasquez PGY3 <Wilder Bullock - Last Filed: 07/19/18 12:14> Objective - Vital Signs/Intake and Output Vital Signs (last 24 hours): Temp Pulse Resp BP Pulse Ox 98.3 F 89 16 136/68 94 L 07/19/18 08:00 07/19/18 10:00 07/19/18 11:10 07/19/18 10:00 07/19/18 10:00 Intake and Output: 07/19/18 07/19/18 06:59 18:59 Intake Total 950 620 Balance 950 620 - Medications Medications: Current Medications Acetylcysteine (Acetylcysteine 20%) 2 ml INH RBID [facility] Last Admin: 07/19/18 07:31 Dose: 2 ml Albuterol Sulfate (Albuterol 0.083% Inhal Julieth (2.5 Mg/3 Ml) Ud) 2.5 mg INH RBID [facility] Last Admin: 07/19/18 07:31 Dose: 2.5 mg Albuterol/Ipratropium (Duoneb 3 Mg/0.5 Mg (3 Ml) Ud) 3 ml INH RQ6 PRN PRN Reason: Shortness of Breath Last Admin: 07/15/18 21:58 Dose: 3 ml Digoxin (Digoxin) 0.125 mg PO DAILY [facility] Last Admin: 07/19/18 11:30 Dose: 0.125 mg Donepezil HCl (Aricept) 10 mg NG HS [facility] Last Admin: 07/18/18 21:25 Dose: 10 mg Enoxaparin Sodium (Lovenox) 30 mg SC DAILY [facility]; Protocol Last Admin: 07/19/18 08:42 Dose: 30 mg Metronidazole (Flagyl 500mg/100ml Ns) 100 mls @ 100 mls/hr IVPB Q8 [facility]; Protocol Last Admin: 07/19/18 08:41 Dose: 100 mls/hr Fluconazole (Diflucan Iv 100 Mg/50 Ml Ns) 50 mls @ 50 mls/hr IVPB DAILY [facility]; Protocol Last Admin: 07/19/18 08:39 Dose: 50 mls/hr Vancomycin HCl 750 mg/ Sodium (Chloride) 250 mls @ 166.667 mls/hr IVPB Q12 [facility]; Protocol Last Admin: 07/19/18 08:48 Dose: 166.667 mls/hr Meropenem 1 gm/ Sodium (Chloride) 100 mls @ 100 mls/hr IVPB Q8 [facility]; Protocol Last Admin: 07/19/18 08:43 Dose: 100 mls/hr Ketorolac Tromethamine (Toradol) 30 mg IVP Q6 PRN PRN Reason: Pain, severe (8-10) Last Admin: 07/19/18 02:26 Dose: 30 mg Mirtazapine (Remeron) 30 mg PO HS [facility] Last Admin: 07/18/18 21:26 Dose: 30 mg Ondansetron HCl (Zofran Inj) 4 mg IVP Q6 PRN PRN Reason: Nausea/Vomiting Last Admin: 07/12/18 10:40 Dose: 4 mg Pantoprazole Sodium (Protonix Inj) 40 mg IVP DAILY [facility] Last Admin: 07/19/18 08:47 Dose: 40 mg Pravastatin Sodium (Pravachol) 20 mg PO HS [facility] Last Admin: 07/18/18 21:25 Dose: 20 mg - Labs Labs: 07/19/18 05:00 07/19/18 05:00 PT 14.9 Seconds (9.8-13.1) H 07/18/18 05:00 INR 1.3 07/18/18 05:00 APTT 25.6 Seconds (25.6-37.1) 07/18/18 05:00 Assessment and Plan - Assessment and Plan (Free Text) Assessment: All medical record entries made by the resident were at my direction. I have reviewed the chart and agree that the record accurately reflects my personal performance of the history, physical exam, medical decision making. I have also personally directed, reviewed, and agree with the resident disposition
--- NOTE | 2018-07-19 10:54 | CP.PCM.PN ---
Subjective - Date & Time of Evaluation Date of Evaluation: 07/19/18 Time of Evaluation: 10:50 - Subjective Subjective: Up in chair this morning. Looks comfortable at rest. On HFNC 40/40 with SpO2 95%. Tmax 99.7, normotensive, not tachy. Today's CXR reviewed; large gastric bubble, appears to have decreasing effusions. Labs reviewed; CBC stable, K corrected, PO4 still low. Awake and cooperative with exam. Generalized edema noted w/o cyanosis. Neck is supple and trachea midline. No dullness on percussion of the anterior chest wall. Breath sounds are well heard anteriorly with few rhonchi. Breath sounds remain very decreased in the lower lobe region of both lungs. No audible wheezing, no bronchial breathing. Maintain current medical regimen. No thoracentesis at this time. Mobilize patient as tolerated. Objective - Vital Signs/Intake and Output Vital Signs (last 24 hours): Temp Pulse Resp BP Pulse Ox 98.3 F 89 21 136/68 94 L 07/19/18 08:00 07/19/18 10:00 07/19/18 10:00 07/19/18 10:00 07/19/18 10:00 Intake and Output: 07/18/18 07/19/18 23:59 11:59 Intake Total 1750 1220 Balance 1750 1220 - Medications Medications: Current Medications Acetylcysteine (Acetylcysteine 20%) 2 ml INH RBID [facility] Last Admin: 07/19/18 07:31 Dose: 2 ml Albuterol Sulfate (Albuterol 0.083% Inhal Julieth (2.5 Mg/3 Ml) Ud) 2.5 mg INH RBID [facility] Last Admin: 07/19/18 07:31 Dose: 2.5 mg Albuterol/Ipratropium (Duoneb 3 Mg/0.5 Mg (3 Ml) Ud) 3 ml INH RQ6 PRN PRN Reason: Shortness of Breath Last Admin: 07/15/18 21:58 Dose: 3 ml Digoxin (Digoxin) 0.125 mg PO DAILY [facility] Donepezil HCl (Aricept) 10 mg NG HS [facility] Last Admin: 07/18/18 21:25 Dose: 10 mg Enoxaparin Sodium (Lovenox) 30 mg SC DAILY [facility]; Protocol Last Admin: 07/19/18 08:42 Dose: 30 mg Metronidazole (Flagyl 500mg/100ml Ns) 100 mls @ 100 mls/hr IVPB Q8 [facility]; Protocol Last Admin: 07/19/18 08:41 Dose: 100 mls/hr Fluconazole (Diflucan Iv 100 Mg/50 Ml Ns) 50 mls @ 50 mls/hr IVPB DAILY [facility]; Protocol Last Admin: 07/19/18 08:39 Dose: 50 mls/hr Vancomycin HCl 750 mg/ Sodium (Chloride) 250 mls @ 166.667 mls/hr IVPB Q12 [facility]; Protocol Last Admin: 07/19/18 08:48 Dose: 166.667 mls/hr Meropenem 1 gm/ Sodium (Chloride) 100 mls @ 100 mls/hr IVPB Q8 [facility]; Protocol Last Admin: 07/19/18 08:43 Dose: 100 mls/hr Ketorolac Tromethamine (Toradol) 30 mg IVP Q6 PRN PRN Reason: Pain, severe (8-10) Last Admin: 07/19/18 02:26 Dose: 30 mg Mirtazapine (Remeron) 30 mg PO HS [facility] Last Admin: 07/18/18 21:26 Dose: 30 mg Ondansetron HCl (Zofran Inj) 4 mg IVP Q6 PRN PRN Reason: Nausea/Vomiting Last Admin: 07/12/18 10:40 Dose: 4 mg Pantoprazole Sodium (Protonix Inj) 40 mg IVP DAILY [facility] Last Admin: 07/19/18 08:47 Dose: 40 mg Pravastatin Sodium (Pravachol) 20 mg PO HS [facility] Last Admin: 07/18/18 21:25 Dose: 20 mg - Labs Labs: 07/19/18 05:00 07/19/18 05:00 PT 14.9 Seconds (9.8-13.1) H 07/18/18 05:00 INR 1.3 07/18/18 05:00 APTT 25.6 Seconds (25.6-37.1) 07/18/18 05:00 Assessment and Plan (1) Pleural effusion Status: Acute (2) Atelectasis Status: Acute (3) Acute respiratory insufficiency Status: Acute
[2018-07-19] MEDS: Digoxin 125 mcg (0.125 mg) Tab PO SCH (11:30)
--- NOTE | 2018-07-19 12:24 | CP.PCM.PN ---
Subjective - Date & Time of Evaluation Date of Evaluation: 07/19/18 Time of Evaluation: 12:23 - Subjective Subjective: ID Note- Pt. seen and examined today in ICU. pt. resting comfortably. denies any fever or chills. no new events overnight. Objective - Vital Signs/Intake and Output Vital Signs (last 24 hours): Temp Pulse Resp BP Pulse Ox 98.3 F 89 16 136/68 94 L 07/19/18 08:00 07/19/18 10:00 07/19/18 11:10 07/19/18 10:00 07/19/18 10:00 Intake and Output: 07/19/18 07/19/18 06:59 18:59 Intake Total 950 620 Balance 950 620 - Medications Medications: Current Medications Acetylcysteine (Acetylcysteine 20%) 2 ml INH RBID [facility] Last Admin: 07/19/18 07:31 Dose: 2 ml Albuterol Sulfate (Albuterol 0.083% Inhal Julieth (2.5 Mg/3 Ml) Ud) 2.5 mg INH RBID [facility] Last Admin: 07/19/18 07:31 Dose: 2.5 mg Albuterol/Ipratropium (Duoneb 3 Mg/0.5 Mg (3 Ml) Ud) 3 ml INH RQ6 PRN PRN Reason: Shortness of Breath Last Admin: 07/15/18 21:58 Dose: 3 ml Digoxin (Digoxin) 0.125 mg PO DAILY [facility] Last Admin: 07/19/18 11:30 Dose: 0.125 mg Donepezil HCl (Aricept) 10 mg NG HS [facility] Last Admin: 07/18/18 21:25 Dose: 10 mg Enoxaparin Sodium (Lovenox) 30 mg SC DAILY [facility]; Protocol Last Admin: 07/19/18 08:42 Dose: 30 mg Metronidazole (Flagyl 500mg/100ml Ns) 100 mls @ 100 mls/hr IVPB Q8 [facility]; Protocol Last Admin: 07/19/18 08:41 Dose: 100 mls/hr Fluconazole (Diflucan Iv 100 Mg/50 Ml Ns) 50 mls @ 50 mls/hr IVPB DAILY [facility]; Protocol Last Admin: 07/19/18 08:39 Dose: 50 mls/hr Vancomycin HCl 750 mg/ Sodium (Chloride) 250 mls @ 166.667 mls/hr IVPB Q12 [facility]; Protocol Last Admin: 07/19/18 08:48 Dose: 166.667 mls/hr Meropenem 1 gm/ Sodium (Chloride) 100 mls @ 100 mls/hr IVPB Q8 [facility]; Protocol Last Admin: 07/19/18 08:43 Dose: 100 mls/hr Ketorolac Tromethamine (Toradol) 30 mg IVP Q6 PRN PRN Reason: Pain, severe (8-10) Last Admin: 07/19/18 02:26 Dose: 30 mg Mirtazapine (Remeron) 30 mg PO HS [facility] Last Admin: 07/18/18 21:26 Dose: 30 mg Ondansetron HCl (Zofran Inj) 4 mg IVP Q6 PRN PRN Reason: Nausea/Vomiting Last Admin: 07/12/18 10:40 Dose: 4 mg Pantoprazole Sodium (Protonix Inj) 40 mg IVP DAILY [facility] Last Admin: 07/19/18 08:47 Dose: 40 mg Pravastatin Sodium (Pravachol) 20 mg PO HS [facility] Last Admin: 07/18/18 21:25 Dose: 20 mg - Labs Labs: - Additional Findings Additional findings: Constitutional Appears: No Acute Distress Additional comments: awake and alert - Head Exam Head Exam: ATRAUMATIC - Eye Exam Eye Exam: EOMI, PERRL - Neck Exam Neck exam: Positive for: Full Rom - Respiratory Exam Additional comments: breath sounds heard b/l no wheezing slightly decreased at left base - Cardiovascular Exam Cardiovascular Exam: RRR, +S1, +S2 - GI/Abdominal Exam GI & Abdominal Exam: Soft Additional comments: mid lower abdomen surgical site with sutures in place, no more packing no discharge, no erythema no tenderness soft - Extremities Exam Extremities exam: Positive for: normal inspection except 1+ LE edema B/L - Neurological Exam Neurological exam: AAO x 3 today. Laboratory Results - last 72 hr 07/17/18 07/17/18 07/17/18 05:05 05:05 05:05 WBC 10.3 RBC 3.71 L Hgb 11.0 L Hct 33.6 L MCV 90.5 MCH 29.7 MCHC 32.9 L RDW 14.9 H Plt Count 103 L D PT INR APTT Fibrinogen Sodium 145 Potassium 2.9 L Chloride 106 Carbon Dioxide 24 Anion Gap 18 BUN 20 H Creatinine 0.6 L Est GFR ( Amer) > 60 Est GFR (Non-Af Amer) > 60 POC Glucose (mg/dL) Random Glucose 61 L Calcium 8.0 L Phosphorus Magnesium Total Bilirubin 0.4 AST 41 H D ALT 35 Alkaline Phosphatase 144 H D Total Protein 4.3 L Albumin 2.1 L Globulin 2.2 Albumin/Globulin Ratio 1.0 Vancomycin Trough 7.8 07/17/18 07/17/18 07/17/18 09:44 11:30 16:34 WBC RBC Hgb Hct MCV MCH MCHC RDW Plt Count PT INR APTT Fibrinogen Sodium Potassium Chloride Carbon Dioxide Anion Gap BUN Creatinine Est GFR ( Amer) Est GFR (Non-Af Amer) POC Glucose (mg/dL) 74 82 127 H Random Glucose Calcium Phosphorus Magnesium Total Bilirubin AST ALT Alkaline Phosphatase Total Protein Albumin Globulin Albumin/Globulin Ratio Vancomycin Trough 07/18/18 07/18/18 07/18/18 05:00 05:00 05:00 WBC 10.6 RBC 3.79 L Hgb 11.3 L Hct 33.5 L MCV 88.3 D MCH 29.7 MCHC 33.6 RDW 14.3 Plt Count 132 PT 14.9 H INR 1.3 APTT 25.6 Fibrinogen 589 H Sodium 146 Potassium 2.8 L Chloride 113 H Carbon Dioxide 29 Anion Gap 7 L BUN 17 Creatinine 0.5 L Est GFR ( Amer) > 60 Est GFR (Non-Af Amer) > 60 POC Glucose (mg/dL) Random Glucose 144 H Calcium 7.7 L Phosphorus Magnesium Total Bilirubin 0.4 AST 29 ALT 29 Alkaline Phosphatase 126 Total Protein 4.2 L Albumin 1.8 L Globulin 2.3 Albumin/Globulin Ratio 0.8 L Vancomycin Trough 07/18/18 07/19/18 07/19/18 11:00 05:00 05:00 WBC 10.3 RBC 3.62 L Hgb 10.9 L Hct 32.6 L MCV 89.9 MCH 30.1 MCHC 33.5 RDW 14.8 H Plt Count 153 PT INR APTT Fibrinogen Sodium 145 Potassium 4.1 Chloride 112 H Carbon Dioxide 30 Anion Gap 7 L BUN 15 Creatinine 0.5 L Est GFR ( Amer) > 60 Est GFR (Non-Af Amer) > 60 POC Glucose (mg/dL) Random Glucose 111 H Calcium 8.0 L Phosphorus 1.4 L 1.6 L Magnesium 2.2 2.0 Total Bilirubin 0.3 AST 24 ALT 28 Alkaline Phosphatase 111 Total Protein 4.3 L Albumin 2.1 L Globulin 2.2 Albumin/Globulin Ratio 1.0 Vancomycin Trough Microbiology 07/13/18 16:00 Blood-Venous Blood Culture - Final NO GROWTH AFTER 5 DAYS 07/13/18 16:00 Blood-Venous Gram Stain - Final TEST NOT PERFORMED 07/13/18 17:00 Blood-Venous Blood Culture - Final NO GROWTH AFTER 5 DAYS 07/13/18 17:00 Blood-Venous Gram Stain - Final TEST NOT PERFORMED 07/14/18 17:00 Blood-Venous Blood Culture - Preliminary NO GROWTH AFTER 4 DAYS 07/14/18 15:58 Blood-Venous Blood Culture - Preliminary NO GROWTH AFTER 4 DAYS 07/14/18 16:00 Sputum Gram Stain - Final 07/14/18 16:00 Sputum Sputum Culture - Final No growth. 07/13/18 17:21 Urine,Elizondo Urine Culture - Final No Growth (<1,000 CFU/ML) 07/10/18 19:55 Urine Random Urine Culture - Final Gram Negative [place] Assessment and Plan (1) Small bowel obstruction Status: Acute (2) Sepsis Status: Acute - Assessment and Plan (Free Text) Assessment: A/P- 87 year old female with multiple past medical history and s/p past hemicolectomy and reversal of colostomy who was admitted with abd . pain and found to have SBO and is POD #1 s/p Exploratory laparotomy, extenive lysis of adhesions, repair of enterotomies x 2, washout. clinically improved. afebrile leukocytosis resolved. blood cx- neg x 4 Initial urine cx- GNR prelim sputum cx- neg repeat urine cx- neg ABD ct and CXR report noted-pleural effusion plan- advise to continue empiric broad coverage with meropenem, flagyl,vanco and fluconazole pending further results.day #6 keep vanco trough <15. Critical care time spent 40 minutes.
--- NOTE | 2018-07-19 16:49 | US ---
Date of service: 07/19/2018 PROCEDURE: Right upper extremity duplex venous sonography. HISTORY: r/o DVT COMPARISON: None TECHNIQUE: Real-time ultrasound scan of the veins with color flow, spectral waveform analysis and compression FINDINGS: Patent subclavian, axillary and brachial veins. Patent cephalic ulnar and radial veins. Compression, augmentation and phasicity demonstrated. Internal jugular vein not scanned dressing. Limited assessment of the basilic vein due to dressing at the site of the PICC line. IMPRESSION: No evidence of right upper extremity venous thrombosis.
[2018-07-19] MEDS: Pravastatin Sodium 20 MG TAB PO SCH (21:03)
[2018-07-20] MEDS: metroNIDAZOLE 500mg/100ml NS 100 ML IVPB SCH ×3 (00:04→16:22)
[2018-07-20] MEDS: Meropenem 1 GM in Sodium Chloride 0.9% 100 ML IVPB SCH ×3 (00:05→17:43)
[2018-07-20 06:20] LABS: HEMOGLOBIN 11.3 g/dL (12.0-16.0); MEAN CELL VOLUME 90.7 fl (81.0-99.0); MEAN CORPUSCULAR HEMOGLOBIN 30.3 pg (27.0-31.0); MEAN CORPUSCULAR HGB CONC 33.4 g/dL (33.0-37.0); RBC 3.72 Mil/uL (3.80-5.20); RED CELL DISTRIBUTION WIDTH 14.7 % (11.5-14.5); WHITE BLOOD COUNT 9.8 K/uL (4.8-10.8)
--- NOTE | 2018-07-20 06:44 | CP.PCM.PN ---
<Amadeo Velasquez - Last Filed: 07/20/18 07:18> Subjective - Date & Time of Evaluation Date of Evaluation: 07/20/18 Time of Evaluation: 06:41 - Subjective Subjective: General Surgery Progress Note for Dr. Bullock This 87F was seen and examined this Am at bedside no acute events overnight. She has tolerated regular diet. When the wound vac was applied yestertday she was out of bed. She denies any fevers chills chest pain or abdominal pain. She is moving her bowels. Objective - Vital Signs/Intake and Output Vital Signs (last 24 hours): Temp Pulse Resp BP Pulse Ox 98.4 F 88 20 139/71 95 07/20/18 04:00 07/20/18 04:00 07/20/18 04:18 07/20/18 04:00 07/20/18 04:00 Intake and Output: 07/19/18 07/20/18 18:59 06:59 Intake Total 1060 462 Balance 1060 462 - Medications Medications: Current Medications Acetylcysteine (Acetylcysteine 20%) 2 ml INH RBID [facility] Last Admin: 07/19/18 19:14 Dose: 2 ml Albuterol Sulfate (Albuterol 0.083% Inhal Julieth (2.5 Mg/3 Ml) Ud) 2.5 mg INH RBID [facility] Last Admin: 07/19/18 19:14 Dose: 2.5 mg Albuterol/Ipratropium (Duoneb 3 Mg/0.5 Mg (3 Ml) Ud) 3 ml INH RQ6 PRN PRN Reason: Shortness of Breath Last Admin: 07/15/18 21:58 Dose: 3 ml Digoxin (Digoxin) 0.125 mg PO DAILY [facility] Last Admin: 07/19/18 11:30 Dose: 0.125 mg Donepezil HCl (Aricept) 10 mg NG HS [facility] Last Admin: 07/19/18 21:04 Dose: 10 mg Enoxaparin Sodium (Lovenox) 30 mg SC DAILY [facility]; Protocol Last Admin: 07/19/18 08:42 Dose: 30 mg Metronidazole (Flagyl 500mg/100ml Ns) 100 mls @ 100 mls/hr IVPB Q8 [facility]; Protocol Last Admin: 07/20/18 00:04 Dose: 100 mls/hr Fluconazole (Diflucan Iv 100 Mg/50 Ml Ns) 50 mls @ 50 mls/hr IVPB DAILY [facility]; Protocol Last Admin: 07/19/18 08:39 Dose: 50 mls/hr Vancomycin HCl 750 mg/ Sodium (Chloride) 250 mls @ 166.667 mls/hr IVPB Q12 [facility]; Protocol Last Admin: 07/19/18 20:58 Dose: 166.667 mls/hr Meropenem 1 gm/ Sodium (Chloride) 100 mls @ 100 mls/hr IVPB Q8 [facility]; Protocol Last Admin: 07/20/18 00:05 Dose: 100 mls/hr Ketorolac Tromethamine (Toradol) 30 mg IVP Q6 PRN PRN Reason: Pain, severe (8-10) Last Admin: 07/19/18 17:50 Dose: 30 mg Mirtazapine (Remeron) 30 mg PO HS [facility] Last Admin: 07/19/18 21:03 Dose: 30 mg Ondansetron HCl (Zofran Inj) 4 mg IVP Q6 PRN PRN Reason: Nausea/Vomiting Last Admin: 07/12/18 10:40 Dose: 4 mg Pantoprazole Sodium (Protonix Inj) 40 mg IVP DAILY [facility] Last Admin: 07/19/18 08:47 Dose: 40 mg Pravastatin Sodium (Pravachol) 20 mg PO HS [facility] Last Admin: 07/19/18 21:03 Dose: 20 mg - Labs Labs: 07/20/18 04:30 07/19/18 05:00 PT 14.9 Seconds (9.8-13.1) H 07/18/18 05:00 INR 1.3 07/18/18 05:00 APTT 25.6 Seconds (25.6-37.1) 07/18/18 05:00 - Constitutional Appears: Non-toxic, No Acute Distress, Other (Diffusely edematous) - Head Exam Head Exam: ATRAUMATIC, NORMOCEPHALIC - Eye Exam Eye Exam: EOMI - ENT Exam ENT Exam: Mucous Membranes Moist - Respiratory Exam Respiratory Exam: NORMAL BREATHING PATTERN - Cardiovascular Exam Cardiovascular Exam: +S1, +S2 - GI/Abdominal Exam GI & Abdominal Exam: Soft. absent: Distended, Guarding, Rigid, Tenderness Additional comments: Wound vac in place with good suction and serosanguinous output. Assessment and Plan - Assessment and Plan (Free Text) Assessment: 87 F who presents with septic shock, acute respiratory failure, elevated lactate, s/p exploratory laparotomy, lysis of adhesion, and repair of enterotomy x 2 for SBO POD#8 Plan: Out of bed Continue Regular Diet F/U AM labs Correct electrolytes PRN Limit IVF Further recs per Dr. Kobe Velasquez PGY3 <Wilder Bullock - Last Filed: 07/26/18 10:15> Objective - Vital Signs/Intake and Output Vital Signs (last 24 hours): Temp Pulse Resp BP Pulse Ox 97.5 F L 86 20 110/70 95 07/22/18 12:48 07/22/18 12:48 07/22/18 15:00 07/22/18 12:48 07/22/18 12:48 - Medications Medications: Current Medications Acetylcysteine (Acetylcysteine 20%) 2 ml INH RBID [facility] Last Admin: 07/22/18 07:36 Dose: 2 ml Albuterol Sulfate (Albuterol 0.083% Inhal Julieth (2.5 Mg/3 Ml) Ud) 2.5 mg INH RBID [facility] Last Admin: 07/22/18 15:08 Dose: 2.5 mg Albuterol/Ipratropium (Duoneb 3 Mg/0.5 Mg (3 Ml) Ud) 3 ml INH RQ6 PRN PRN Reason: Shortness of Breath Last Admin: 07/22/18 07:36 Dose: 3 ml Donepezil HCl (Aricept) 10 mg NG HS [facility] Last Admin: 07/21/18 21:07 Dose: 10 mg Metronidazole (Flagyl 500mg/100ml Ns) 100 mls @ 100 mls/hr IVPB Q8 [facility]; Protocol Last Admin: 07/22/18 08:19 Dose: 100 mls/hr Fluconazole (Diflucan Iv 100 Mg/50 Ml Ns) 50 mls @ 50 mls/hr IVPB DAILY [facility]; Protocol Last Admin: 07/22/18 11:29 Dose: 50 mls/hr Ketorolac Tromethamine (Toradol) 30 mg IVP Q6 PRN PRN Reason: Pain, severe (8-10) Last Admin: 07/20/18 10:58 Dose: 30 mg Mirtazapine (Remeron) 30 mg PO HS [facility] Last Admin: 07/21/18 21:08 Dose: 30 mg Ondansetron HCl (Zofran Inj) 4 mg IVP Q6 PRN PRN Reason: Nausea/Vomiting Last Admin: 07/12/18 10:40 Dose: 4 mg Pravastatin Sodium (Pravachol) 20 mg PO [facility] Last Admin: 07/21/18 21:07 Dose: 20 mg - Labs Labs: 07/22/18 05:20 07/22/18 05:20 PT 14.9 Seconds (9.8-13.1) H 07/18/18 05:00 INR 1.3 07/18/18 05:00 APTT 25.6 Seconds (25.6-37.1) 07/18/18 05:00 Assessment and Plan - Assessment and Plan (Free Text) Assessment: All medical record entries made by the resident were at my direction. I have reviewed the chart and agree that the record accurately reflects my personal performance of the history, physical exam, medical decision making. I have also personally examined the patient, reviewed, and agree the resident note.
[2018-07-20 06:48] LABS: ALBUMIN 2.1 g/dL (3.5-5.0); ALT/SGPT 29 U/L (9-52); AST/SGOT 21 U/L (14-36); BLOOD UREA NITROGEN 17 mg/dl (7-17); CALCIUM 8.2 mg/dL (8.4-10.2); GFR NON-AFRICAN AMERICAN > 60
--- NOTE | 2018-07-20 06:53 | CP.PCM.PN ---
<Lauri Hughes - Last Filed: 07/20/18 11:00> Subjective - Date & Time of Evaluation Date of Evaluation: 07/20/18 Time of Evaluation: 06:53 - Subjective Subjective: Patient seen and examined at bedside, ICU day 8, awake, alert and oriented x3. Feeling tired, mild abd discomfort, tolerating PO, denies CP, no sob, fever, reports 1 BM this morning. NSR today on monitor, started on Digoxin HF oxygen via a venti mask 40% at 30 lpm, with SpO2 95%. RUE PICC intact. VSS, afebrile. Objective - Vital Signs/Intake and Output Vital Signs (last 24 hours): Temp Pulse Resp BP Pulse Ox 98.4 F 87 21 134/64 95 07/20/18 04:00 07/20/18 06:00 07/20/18 06:00 07/20/18 06:00 07/20/18 06:00 Intake and Output: 07/19/18 07/20/18 18:59 06:59 Intake Total 1060 462 Balance 1060 462 - Medications Medications: Current Medications Acetylcysteine (Acetylcysteine 20%) 2 ml INH RBID [facility] Last Admin: 07/19/18 19:14 Dose: 2 ml Albuterol Sulfate (Albuterol 0.083% Inhal Julieth (2.5 Mg/3 Ml) Ud) 2.5 mg INH RBID [facility] Last Admin: 07/19/18 19:14 Dose: 2.5 mg Albuterol/Ipratropium (Duoneb 3 Mg/0.5 Mg (3 Ml) Ud) 3 ml INH RQ6 PRN PRN Reason: Shortness of Breath Last Admin: 07/15/18 21:58 Dose: 3 ml Digoxin (Digoxin) 0.125 mg PO DAILY [facility] Last Admin: 07/19/18 11:30 Dose: 0.125 mg Donepezil HCl (Aricept) 10 mg NG HS [facility] Last Admin: 07/19/18 21:04 Dose: 10 mg Enoxaparin Sodium (Lovenox) 30 mg SC DAILY [facility]; Protocol Last Admin: 07/19/18 08:42 Dose: 30 mg Metronidazole (Flagyl 500mg/100ml Ns) 100 mls @ 100 mls/hr IVPB Q8 [facility]; Protocol Last Admin: 07/20/18 00:04 Dose: 100 mls/hr Fluconazole (Diflucan Iv 100 Mg/50 Ml Ns) 50 mls @ 50 mls/hr IVPB DAILY [facility]; P rotocol Last Admin: 07/19/18 08:39 Dose: 50 mls/hr Vancomycin HCl 750 mg/ Sodium (Chloride) 250 mls @ 166.667 mls/hr IVPB Q12 [facility]; Protocol Last Admin: 07/19/18 20:58 Dose: 166.667 mls/hr Meropenem 1 gm/ Sodium (Chloride) 100 mls @ 100 mls/hr IVPB Q8 [facility]; Protocol Last Admin: 07/20/18 00:05 Dose: 100 mls/hr Ketorolac Tromethamine (Toradol) 30 mg IVP Q6 PRN PRN Reason: Pain, severe (8-10) Last Admin: 07/19/18 17:50 Dose: 30 mg Mirtazapine (Remeron) 30 mg PO HS [facility] Last Admin: 07/19/18 21:03 Dose: 30 mg Ondansetron HCl (Zofran Inj) 4 mg IVP Q6 PRN PRN Reason: Nausea/Vomiting Last Admin: 07/12/18 10:40 Dose: 4 mg Pantoprazole Sodium (Protonix Inj) 40 mg IVP DAILY [facility] Last Admin: 07/19/18 08:47 Dose: 40 mg Pravastatin Sodium (Pravachol) 20 mg PO HS [facility] Last Admin: 07/19/18 21:03 Dose: 20 mg - Labs Labs: 07/20/18 04:30 07/20/18 04:30 PT 14.9 Seconds (9.8-13.1) H 07/18/18 05:00 INR 1.3 07/18/18 05:00 APTT 25.6 Seconds (25.6-37.1) 07/18/18 05:00 - Constitutional Appears: No Acute Distress - Head Exam Head Exam: NORMAL INSPECTION - Eye Exam Eye Exam: EOMI, PERRL - Respiratory Exam Respiratory Exam: Decreased Breath Sounds (bibasilar), Clear to Ausculation Bilateral. absent: Respiratory Distress - Cardiovascular Exam Cardiovascular Exam: REGULAR RHYTHM, +S1, +S2. absent: Tachycardia - GI/Abdominal Exam GI & Abdominal Exam: Soft. absent: Tenderness Additional comments: Wound vac noted in place, no erythema or bruises noted around wound - Extremities Exam Extremities Exam: absent: Calf Tenderness Additional comments: RUE edema b/l Thigh edema appreciated - Neurological Exam Neurological Exam: Alert, Awake, Oriented x3 - Skin Skin Exam: Dry, Warm Assessment and Plan - Assessment and Plan (Free Text) Assessment: 87 F who presents with septic shock, acute respiratory failure, elevated lactate, s/p exploratory laparotomy, lysis of adhesion, and repair of enterotomy x2 for SBO POD #8 Chest/ Abd/ pelvis CT: 1.Mildly large left and mild right pleural effusions exert extensive compression atelectasis at the bilateral lower lobes with pneumonia difficult to exclude underlying these findings but not favored either. 2. Stable cardiomegaly. No pericardial effusion. 3. Lax posterior tracheal wall is seen at the central inferior trachea near the thoracic inlet. Extrinsic compression is not excluded, even possibly on the basis of esophageal thickening here. Clinically correlate further. 4. Diminishing small bowel dilatation with oral contrast now present in the ascending colon and proximal transverse segments. Limited postoperative changes seen the abdomen status post prior laparotomy. 5. Extensive colonic diverticulosis without definite diverticulitis. Note is made of distal sigmoid mural thickening clearly identified on the prior CT in this could reflect interval inflammatory or infectious process with ischemia less likely. 6.Note is made of heterogeneous density involving the T6 vertebral body potentially reflecting Paget's disease or other benign productive bony process. RUE US 3: negative for DVT Plan: Small bowel obstruction/ s/p ex laparotomy POD 8 - General surgery, Dr. Mendez on board - Pain management with toradol - continue IVF - Tolerating PO - PT - Wound vac - encouraged incentive spirometry - f/u Surgery recs. AFib - NSR HR 95 on monitor - Cardiology consulted, recs appreciated - Digoxine 0.125 mg daily - Echo: preserved left ventricular systolic function. Acute TX - likely 2/2 hypotension during surgery or tachycardia during A Fib. - Hemodynamically stable - troponin elevation ( less than 10 days of TX) - Echo: preserved left ventricular systolic function. - Cardiology on board, recs appreciated Bilateral Pleural effusion - Abd CT: larger in left that Right - Pulmonology consult, recs appreciated - f/u CXR - afebrile Hypertension - controlled - metoprolol succinated 50 mg ER Hyperlipidemia - resume pravastatin 20 mg po hs GERD - start protonix 40 mg IVP Hiatal hernia - c/w protonix 40 mg IVP Cognitive impairment - aricept Insomnia/anxiety - remeron and aricept DVT prophylaxis - SCDs - Lovenox 40 sc Case discussed with Dr Chapo Ramírez PGY 2 <Demario Cowan D - Last Filed: 07/20/18 11:13> Objective - Vital Signs/Intake and Output Vital Signs (last 24 hours): Temp Pulse Resp BP Pulse Ox 98.7 F 98 H 24 148/76 94 L 07/20/18 08:00 07/20/18 10:00 07/20/18 10:00 07/20/18 10:00 07/20/18 10:00 Intake and Output: 07/20/18 07/20/18 06:59 18:59 Intake Total 462 350 Balance 462 350 - Medications Medications: Current Medications Acetylcysteine (Acetylcysteine 20%) 2 ml INH RBID [facility] Last Admin: 07/20/18 07:39 Dose: 2 ml Albuterol Sulfate (Albuterol 0.083% Inhal Julieth (2.5 Mg/3 Ml) Ud) 2.5 mg INH RBID [facility] Last Admin: 07/20/18 07:39 Dose: 2.5 mg Albuterol/Ipratropium (Duoneb 3 Mg/0.5 Mg (3 Ml) Ud) 3 ml INH RQ6 PRN PRN Reason: Shortness of Breath Last Admin: 07/15/18 21:58 Dose: 3 ml Digoxin (Digoxin) 0.125 mg PO DAILY [facility] Last Admin: 07/20/18 09:02 Dose: 0.125 mg Donepezil HCl (Aricept) 10 mg NG HS [facility] Last Admin: 07/19/18 21:04 Dose: 10 mg Enoxaparin Sodium (Lovenox) 30 mg SC DAILY [facility]; Protocol Last Admin: 07/20/18 09:02 Dose: 30 mg Metronidazole (Flagyl 500mg/100ml Ns) 100 mls @ 100 mls/hr IVPB Q8 [facility]; Protocol Last Admin: 07/20/18 09:02 Dose: 100 mls/hr Fluconazole (Diflucan Iv 100 Mg/50 Ml Ns) 50 mls @ 50 mls/hr IVPB DAILY [facility]; Protocol Last Admin: 07/19/18 08:39 Dose: 50 mls/hr Vancomycin HCl 750 mg/ Sodium (Chloride) 250 mls @ 166.667 mls/hr IVPB Q12 [facility]; Protocol Last Admin: 07/19/18 20:58 Dose: 166.667 mls/hr Meropenem 1 gm/ Sodium (Chloride) 100 mls @ 100 mls/hr IVPB Q8 [facility]; Protocol Last Admin: 07/20/18 10:39 Dose: 100 mls/hr Ketorolac Tromethamine (Toradol) 30 mg IVP Q6 PRN PRN Reason: Pain, severe (8-10) Last Admin: 07/20/18 10:58 Dose: 30 mg Mirtazapine (Remeron) 30 mg PO HS [facility] Last Admin: 07/19/18 21:03 Dose: 30 mg Ondansetron HCl (Zofran Inj) 4 mg IVP Q6 PRN PRN Reason: Nausea/Vomiting Last Admin: 07/12/18 10:40 Dose: 4 mg Pantoprazole Sodium (Protonix Inj) 40 mg IVP DAILY [facility] Last Admin: 07/20/18 09:03 Dose: 40 mg Pravastatin Sodium (Pravachol) 20 mg PO HS [facility] Last Admin: 07/19/18 21:03 Dose: 20 mg - Labs Labs: 07/20/18 04:30 07/20/18 04:30 PT 14.9 Seconds (9.8-13.1) H 07/18/18 05:00 INR 1.3 07/18/18 05:00 APTT 25.6 Seconds (25.6-37.1) 07/18/18 05:00 Attending/Attestation - Attestation I have personally seen and examined this patient.: Yes I have fully participated in the care of the patient.: Yes I have reviewed all pertinent clinical information, including history, physical exam and plan: Yes Notes (Text): 07/20/18 11:12 Patient seen and examined with resident. Case discussed and agreed with assessment.
[2018-07-20] MEDS: Acetylcysteine 20% Inhal Soln (4ml) INH SCH ×2 (07:39→19:17)
[2018-07-20] MEDS: Albuterol 0.083% Inhal Sol (2.5 mg/3 mL) UD INH SCH ×2 (07:39→19:17)
[2018-07-20] MEDS: Enoxaparin 30 mg Syringe SC SCH (09:02)
[2018-07-20] MEDS: Digoxin 125 mcg (0.125 mg) Tab PO SCH (09:02)
[2018-07-20] MEDS ORDERED: Potassium Chloride 20 mEq/15 ml LIQ UD PO ONE (09:13)
--- NOTE | 2018-07-20 09:57 | CP.PCM.PN ---
Subjective - Date & Time of Evaluation Date of Evaluation: 07/20/18 Time of Evaluation: 09:54 - Subjective Subjective: Seen in ICU, awaiting transfer to telemetry. Has been OOB with PT into chair (4hrs yesterday). Appetite is poor, complains of abdominal discomfort when she eats. No chest x-ray yet today, waiting for her to be OOB in chair again. AM labs appear to be relatively stable. Tmax 98.8 last 24 hrs. BP stable. SpO2 94%. No complaints of cough or dyspnea. + dependant edema w/o cyanosis, extremities are warm. Neck is supple and trachea midline. No dullness on percussion of the anterior chest wall. No subcutaneous emphysema palpated. Breath sounds are fairly well heard anteriorly in both lungs. Posteriorly the breath sounds are decreased, absent in the lower lobes. No audible wheezing, no bronchial breath sounds, few dry rales posteriorly. heart sounds are well heard, regular. Abdomen has wound-vac applied. Follow up PCXR. Continue OOB activity. Continue aerosol therapy. IS and CPT with Acapella. Objective - Vital Signs/Intake and Output Vital Signs (last 24 hours): Temp Pulse Resp BP Pulse Ox 98.4 F 87 17 134/64 95 07/20/18 04:00 07/20/18 06:00 07/20/18 07:39 07/20/18 06:00 07/20/18 06:00 Intake and Output: 07/19/18 07/20/18 23:59 11:59 Intake Total 692 210 Balance 692 210 - Medications Medications: Current Medications Acetylcysteine (Acetylcysteine 20%) 2 ml INH RBID [facility] Last Admin: 07/20/18 07:39 Dose: 2 ml Albuterol Sulfate (Albuterol 0.083% Inhal Julieth (2.5 Mg/3 Ml) Ud) 2.5 mg INH RBID [facility] Last Admin: 07/20/18 07:39 Dose: 2.5 mg Albuterol/Ipratropium (Duoneb 3 Mg/0.5 Mg (3 Ml) Ud) 3 ml INH RQ6 PRN PRN Reason: Shortness of Breath Last Admin: 07/15/18 21:58 Dose: 3 ml Digoxin (Digoxin) 0.125 mg PO DAILY [facility] Last Admin: 07/20/18 09:02 Dose: 0.125 mg Donepezil HCl (Aricept) 10 mg NG HS [facility] Last Admin: 07/19/18 21:04 Dose: 10 mg Enoxaparin Sodium (Lovenox) 30 mg SC DAILY [facility]; Protocol Last Admin: 07/20/18 09:02 Dose: 30 mg Metronidazole (Flagyl 500mg/100ml Ns) 100 mls @ 100 mls/hr IVPB Q8 [facility]; Protocol Last Admin: 07/20/18 09:02 Dose: 100 mls/hr Fluconazole (Diflucan Iv 100 Mg/50 Ml Ns) 50 mls @ 50 mls/hr IVPB DAILY [facility]; Protocol Last Admin: 07/19/18 08:39 Dose: 50 mls/hr Vancomycin HCl 750 mg/ Sodium (Chloride) 250 mls @ 166.667 mls/hr IVPB Q12 [facility]; Protocol Last Admin: 07/19/18 20:58 Dose: 166.667 mls/hr Meropenem 1 gm/ Sodium (Chloride) 100 mls @ 100 mls/hr IVPB Q8 [facility]; Protocol Last Admin: 07/20/18 00:05 Dose: 100 mls/hr Ketorolac Tromethamine (Toradol) 30 mg IVP Q6 PRN PRN Reason: Pain, severe (8-10) Last Admin: 07/19/18 17:50 Dose: 30 mg Mirtazapine (Remeron) 30 mg PO HS [facility] Last Admin: 07/19/18 21:03 Dose: 30 mg Ondansetron HCl (Zofran Inj) 4 mg IVP Q6 PRN PRN Reason: Nausea/Vomiting Last Admin: 07/12/18 10:40 Dose: 4 mg Pantoprazole Sodium (Protonix Inj) 40 mg IVP DAILY [facility] Last Admin: 07/20/18 09:03 Dose: 40 mg Pravastatin Sodium (Pravachol) 20 mg PO HS [facility] Last Admin: 07/19/18 21:03 Dose: 20 mg - Labs Labs: 07/20/18 04:30 07/20/18 04:30 PT 14.9 Seconds (9.8-13.1) H 07/18/18 05:00 INR 1.3 07/18/18 05:00 APTT 25.6 Seconds (25.6-37.1) 07/18/18 05:00 Assessment and Plan (1) Pleural effusion Status: Acute (2) Atelectasis Status: Acute (3) Acute respiratory insufficiency Status: Acute
[2018-07-20] MEDS: Fluconazole IV 100mg/50 ml NS 50 ML IVPB SCH (11:10)
--- NOTE | 2018-07-20 15:43 | RAD ---
Date of service: 07/20/2018 HISTORY: pleural effusion COMPARISON: Comparison chest 07/19/2018. TECHNIQUE: 1 view obtained. FINDINGS: No change right subclavian PICC line with tip in the SVC LUNGS: Poor inspiration with low lung volumes, crowded bronchovascular markings and mild bibasilar atelectasis and/or infiltrates. Slightly improved pulmonary venous congestive changes. Small bilateral effusions remain. PLEURA: No significant pleural effusion identified, no pneumothorax apparent. CARDIOVASCULAR: Moderate aortic atherosclerotic calcification present. Normal cardiac size. No pulmonary vascular congestion. OSSEOUS STRUCTURES: No significant abnormalities. VISUALIZED UPPER ABDOMEN: Normal. OTHER FINDINGS: None. IMPRESSION: Poor inspiration with low lung volumes, crowded bronchovascular markings and mild bibasilar atelectasis and/or infiltrates. Slightly improved pulmonary venous congestive changes. Small bilateral effusions remain.
[2018-07-20] MEDS: Pravastatin Sodium 20 MG TAB PO SCH (21:02)
--- NOTE | 2018-07-20 23:04 | PN ---
DATE: 07/20/2018 LOCATION: The patient is in ICU, bed 432. TIME SPENT: 25 minutes. The patient is seen and evaluated at the bedside. Past medical, surgical and family history reviewed. SUBJECTIVE: An 87-year-old female with history significant for hypertension, hyperlipidemia, acid reflux, status post hemicolectomy, status post reversal of colostomy, ventral hernia repair years ago. Admitted with complaints of severe abdominal pain associated with nausea, found to have a small bowel obstruction. Underwent exploratory laparotomy, lysis of adhesions and two enterotomies. Postop in the recovery room, noted to have AFib with rapid ventricular response requiring reintubation. Admitted to ICU, extubated, remains on Ventimask saturating over 94%. This morning alert and awake, follows commands appropriate. Tolerating p.o. feeds. Seen by OT and PT, attempting to be out of bed to chair. PHYSICAL EXAMINATION: VITAL SIGNS: Temperature 97.5, heart rate 89 and regular, blood pressure 125/62, mean arterial pressure 83, respiratory rate of 24, saturation 95%. Intake 1522 and output 950. Weight 159 pounds. HEAD, EYES, EARS, NOSE AND THROAT: Pupils reactive. Conjunctivae pink. Sclerae white. NECK: Supple. Trachea central. CHEST: Bilateral breath sounds diminished in intensity. Fine crepitations at the bases. HEART: Rhythm irregular. ABDOMEN: Bowel sounds present, soft, nontender. EXTREMITIES: Upper extremity without edema. Lower extremity, trace edema. NEUROLOGIC: Nonfocal. CURRENT MEDICATIONS: Include acetylcysteine 20% 2 mL b.i.d., albuterol/Atrovent inhalation 2.5 mg b.i.d., digoxin 0.125 mg daily, Aricept 10 mg p.o. daily, Lovenox 30 mg subcu daily, fluconazole 100 mg daily, Toradol 30 mg IV every 6 hours p.r.n. for pain, meropenem 1 g IV every 8 hours, Flagyl 500 mg IV every 8 hours, Remeron 30 mg p.o. h.s., Zofran 4 mg IV every 6 hours p.r.n., Protonix 40 mg daily, Pravachol 20 mg p.o. daily, vancomycin 750 mg IV every 12 hours. LABORATORY DATA: WBC 9.8, hemoglobin 11.3, hematocrit 33.7, platelet count of 221. PT 14.9, INR 1.3, PTT 25.6, fibrinogen 589. SMA-7: Sodium 143, potassium 3.8, chloride 112, CO2 of 29, blood urea nitrogen 17, creatinine 0.5, random glucose 89, calcium 8.2, total bilirubin 0.3, AST 21, ALT 29, alkaline phosphatase 101, total protein 4.3, albumin 2.1. Urinalysis, urine specific gravity more than 1.060. Toxicology screen, vancomycin trough level 10.4. Microbiology, urine culture positive for gram-negative rods. IMPRESSION: An 87-year-old female, postoperative day 6, status post exploratory laparotomies for small bowel obstruction, status post lysis of adhesions, status post enterotomies x2, history of hypertension, hyperlipidemia, gastroesophageal reflux disease, insomnia, dementia and diverticulitis. 1. Neurologic: Alert and awake, follows commands appropriate. Continue analgesics as needed for pain. Septic metabolic encephalopathy resolved. 2. Pulmonary: Postoperative respiratory failure, intubated, weaned off, currently on high-flow nasal oxygen 40%, maintaining saturation over 94%. Continue DuoNeb with Mucomyst, out of bed to chair. 3. Cardiovascular: Hypertension, resolved. History of atrial fibrillation, stable, rate controlled. 4. Hematology: No acute issues. Hemoglobin/hematocrit stable. 5. Endocrine: No acute issues noted. Maintain blood sugar 90-110 range. 6. Gastrointestinal: Status post exploratory laparotomy, lysis of adhesions, enterotomies, on clear liquids. Continue feeding as tolerated. 7. Infectious disease: Empirically on coverage with meropenem, Flagyl and fluconazole. Continue deep venous thrombosis prophylaxis. Out of bed to chair as tolerated. No need for gastroenterology prophylaxis now. Marco Bhatt MD
[2018-07-21] MEDS: metroNIDAZOLE 500mg/100ml NS 100 ML IVPB SCH ×3 (00:09→16:10)
[2018-07-21] MEDS: Acetylcysteine 20% Inhal Soln (4ml) INH SCH ×2 (07:14→19:44)
[2018-07-21] MEDS: Albuterol 0.083% Inhal Sol (2.5 mg/3 mL) UD INH SCH ×2 (07:14→19:44)
[2018-07-21 07:19] LABS: HEMOGLOBIN 10.8 g/dL (12.0-16.0); MEAN CELL VOLUME 89.9 fl (81.0-99.0); MEAN CORPUSCULAR HEMOGLOBIN 30.1 pg (27.0-31.0); MEAN CORPUSCULAR HGB CONC 33.5 g/dL (33.0-37.0); RBC 3.58 Mil/uL (3.80-5.20); RED CELL DISTRIBUTION WIDTH 14.3 % (11.5-14.5); WHITE BLOOD COUNT 11.7 K/uL (4.8-10.8)
[2018-07-21 07:30] LABS: ALB/GLOB RATIO 0.9 (1.0-2.1); ALBUMIN 2.1 g/dL (3.5-5.0); ALT/SGPT 31 U/L (9-52); AST/SGOT 23 U/L (14-36); BLOOD UREA NITROGEN 21 mg/dl (7-17); CALCIUM 7.8 mg/dL (8.4-10.2); GFR NON-AFRICAN AMERICAN > 60
--- NOTE | 2018-07-21 07:40 | CP.PCM.PN ---
<Zana Rivas Lisa - Last Filed: 07/21/18 07:40> Subjective - Date & Time of Evaluation Date of Evaluation: 07/21/18 Time of Evaluation: 07:38 - Subjective Subjective: General Surgery: Dr Mendez Pt S&E in ICU. Resting comfortably, current getting breathing treatment. No current complaints. Tolerating diet though minimal appetite. Having BMs. Denies abdominal pain. Has been OOB to chair. Wound vac with minimal drainage. Outputs no longer being recorded since 07/18. Awaiting transfer to telemetry Objective - Vital Signs/Intake and Output Vital Signs (last 24 hours): Temp Pulse Resp BP Pulse Ox 98.2 F 89 24 141/72 99 07/21/18 04:00 07/21/18 06:00 07/21/18 07:13 07/21/18 06:00 07/21/18 06:00 Intake and Output: 07/21/18 07/21/18 06:59 18:59 Intake Total 500 Balance 500 - Medications Medications: Current Medications Acetylcysteine (Acetylcysteine 20%) 2 ml INH RBID [facility] Last Admin: 07/21/18 07:14 Dose: 2 ml Albuterol Sulfate (Albuterol 0.083% Inhal Julieth (2.5 Mg/3 Ml) Ud) 2.5 mg INH RBID [facility] Last Admin: 07/21/18 07:14 Dose: 2.5 mg Albuterol/Ipratropium (Duoneb 3 Mg/0.5 Mg (3 Ml) Ud) 3 ml INH RQ6 PRN PRN Reason: Shortness of Breath Last Admin: 07/15/18 21:58 Dose: 3 ml Digoxin (Digoxin) 0.125 mg PO DAILY [facility] Last Admin: 07/20/18 09:02 Dose: 0.125 mg Donepezil HCl (Aricept) 10 mg NG HS [facility] Last Admin: 07/20/18 21:02 Dose: 10 mg Enoxaparin Sodium (Lovenox) 30 mg SC DAILY [facility]; Protocol Last Admin: 07/20/18 09:02 Dose: 30 mg Metronidazole (Flagyl 500mg/100ml Ns) 100 mls @ 100 mls/hr IVPB Q8 [facility]; Protocol Last Admin: 07/21/18 00:09 Dose: 100 mls/hr Fluconazole (Diflucan Iv 100 Mg/50 Ml Ns) 50 mls @ 50 mls/hr IVPB DAILY [facility]; Protocol Last Admin: 07/20/18 11:10 Dose: 50 mls/hr Vancomycin HCl 750 mg/ Sodium (Chloride) 250 mls @ 166.667 mls/hr IVPB Q12 [facility]; Protocol Last Admin: 07/20/18 20:46 Dose: 166.667 mls/hr Ketorolac Tromethamine (Toradol) 30 mg IVP Q6 PRN PRN Reason: Pain, severe (8-10) Last Admin: 07/20/18 10:58 Dose: 30 mg Mirtazapine (Remeron) 30 mg PO HS [facility] Last Admin: 07/20/18 21:02 Dose: 30 mg Ondansetron HCl (Zofran Inj) 4 mg IVP Q6 PRN PRN Reason: Nausea/Vomiting Last Admin: 07/12/18 10:40 Dose: 4 mg Pravastatin Sodium (Pravachol) 20 mg PO HS [facility] Last Admin: 07/20/18 21:02 Dose: 20 mg - Labs Labs: 07/21/18 06:30 07/21/18 06:30 PT 14.9 Seconds (9.8-13.1) H 07/18/18 05:00 INR 1.3 07/18/18 05:00 APTT 25.6 Seconds (25.6-37.1) 07/18/18 05:00 - Constitutional Appears: Non-toxic - ENT Exam ENT Exam: Mucous Membranes Dry - Respiratory Exam Respiratory Exam: absent: Respiratory Distress - Cardiovascular Exam Cardiovascular Exam: REGULAR RHYTHM. absent: Tachycardia - GI/Abdominal Exam GI & Abdominal Exam: Soft. absent: Distended, Tenderness Assessment and Plan - Assessment and Plan (Free Text) Assessment: 87F POD#9 s/p ex-lap w/ SAILAJA Plan: SBO resolved cont reg diet cont to monitor BMs limit IVF further mgmt per medical team awaiting transfer to telemetry will d/w Dr Whittaker, PGY4 <Wilder Bullock - Last Filed: 07/26/18 10:21> Objective - Vital Signs/Intake and Output Vital Signs (last 24 hours): Temp Pulse Resp BP Pulse Ox 97.5 F L 86 20 110/70 95 07/22/18 12:48 07/22/18 12:48 07/22/18 15:00 07/22/18 12:48 07/22/18 12:48 - Medications Medications: Current Medications Acetylcysteine (Acetylcysteine 20%) 2 ml INH RBID [facility] Last Admin: 07/22/18 07:36 Dose: 2 ml Albuterol Sulfate (Albuterol 0.083% Inhal Julieth (2.5 Mg/3 Ml) Ud) 2.5 mg INH RBID [facility] Last Admin: 07/22/18 15:08 Dose: 2.5 mg Albuterol/Ipratropium (Duoneb 3 Mg/0.5 Mg (3 Ml) Ud) 3 ml INH RQ6 PRN PRN Reason: Shortness of Breath Last Admin: 07/22/18 07:36 Dose: 3 ml Donepezil HCl (Aricept) 10 mg NG HS [facility] Last Admin: 07/21/18 21:07 Dose: 10 mg Metronidazole (Flagyl 500mg/100ml Ns) 100 mls @ 100 mls/hr IVPB Q8 [facility]; Protocol Last Admin: 07/22/18 08:19 Dose: 100 mls/hr Fluconazole (Diflucan Iv 100 Mg/50 Ml Ns) 50 mls @ 50 mls/hr IVPB DAILY [facility]; Protocol Last Admin: 07/22/18 11:29 Dose: 50 mls/hr Ketorolac Tromethamine (Toradol) 30 mg IVP Q6 PRN PRN Reason: Pain, severe (8-10) Last Admin: 07/20/18 10:58 Dose: 30 mg Mirtazapine (Remeron) 30 mg PO HS [facility] Last Admin: 07/21/18 21:08 Dose: 30 mg Ondansetron HCl (Zofran Inj) 4 mg IVP Q6 PRN PRN Reason: Nausea/Vomiting Last Admin: 07/12/18 10:40 Dose: 4 mg Pravastatin Sodium (Pravachol) 20 mg PO HS [facility] Last Admin: 07/21/18 21:07 Dose: 20 mg - Labs Labs: 07/22/18 05:20 07/22/18 05:20 PT 14.9 Seconds (9.8-13.1) H 07/18/18 05:00 INR 1.3 07/18/18 05:00 APTT 25.6 Seconds (25.6-37.1) 07/18/18 05:00 Assessment and Plan - Assessment and Plan (Free Text) Plan: All medical record entries made by the resident were at my direction and personally directed by me. I have reviewed the chart and agree that the record accurately reflects my personal performance of the history, physical exam, medical decision making. I have also personally directed, reviewed, and agree with the resident note.
[2018-07-21] MEDS: Enoxaparin 30 mg Syringe SC SCH (08:16)
[2018-07-21] MEDS: Digoxin 125 mcg (0.125 mg) Tab PO SCH (08:17)
[2018-07-21] MEDS: Fluconazole IV 100mg/50 ml NS 50 ML IVPB SCH (08:18)
--- NOTE | 2018-07-21 08:28 | CP.PCM.PN ---
<Mejia Gordillo - Last Filed: 07/21/18 10:17> Subjective - Date & Time of Evaluation Date of Evaluation: 07/21/18 Time of Evaluation: 08:00 - Subjective Subjective: Patient seen and examined at bedside, no acute event overnight. ICU day 9, awake alert and oriented x3 Feeling well, still have some abd discomfort, but tolerate PO Patient denies any fever, chills, chest pain, abd pain diarrhea or constipation. HF oxygen via a venti mask 40% at 30 lpm, with SpO2 94%. RUE PICC intact. VSS, afebrile. Objective - Vital Signs/Intake and Output Vital Signs (last 24 hours): Temp Pulse Resp BP Pulse Ox 98.6 F 91 H 25 H 133/69 94 L 07/21/18 08:00 07/21/18 08:00 07/21/18 08:00 07/21/18 08:00 07/21/18 08:00 Intake and Output: 07/21/18 07/21/18 06:59 18:59 Intake Total 500 Balance 500 - Medications Medications: Current Medications Acetylcysteine (Acetylcysteine 20%) 2 ml INH RBID [facility] Last Admin: 07/21/18 07:14 Dose: 2 ml Albuterol Sulfate (Albuterol 0.083% Inhal Julieth (2.5 Mg/3 Ml) Ud) 2.5 mg INH RBID [facility] Last Admin: 07/21/18 07:14 Dose: 2.5 mg Albuterol/Ipratropium (Duoneb 3 Mg/0.5 Mg (3 Ml) Ud) 3 ml INH RQ6 PRN PRN Reason: Shortness of Breath Last Admin: 07/15/18 21:58 Dose: 3 ml Digoxin (Digoxin) 0.125 mg PO DAILY [facility] Last Admin: 07/21/18 08:17 Dose: 0.125 mg Donepezil HCl (Aricept) 10 mg NG HS [facility] Last Admin: 07/20/18 21:02 Dose: 10 mg Enoxaparin Sodium (Lovenox) 30 mg SC DAILY [facility]; Protocol Last Admin: 07/21/18 08:16 Dose: 30 mg Metronidazole (Flagyl 500mg/100ml Ns) 100 mls @ 100 mls/hr IVPB Q8 [facility]; Protocol Last Admin: 07/21/18 00:09 Dose: 100 mls/hr Fluconazole (Diflucan Iv 100 Mg/50 Ml Ns) 50 mls @ 50 mls/hr IVPB DAILY [facility]; Protocol Last Admin: 07/21/18 08:18 Dose: 50 mls/hr Vancomycin HCl 750 mg/ Sodium (Chloride) 250 mls @ 166.667 mls/hr IVPB Q12 [facility]; Protocol Last Admin: 07/20/18 20:46 Dose: 166.667 mls/hr Ketorolac Tromethamine (Toradol) 30 mg IVP Q6 PRN PRN Reason: Pain, severe (8-10) Last Admin: 07/20/18 10:58 Dose: 30 mg Mirtazapine (Remeron) 30 mg PO HS [facility] Last Admin: 07/20/18 21:02 Dose: 30 mg Ondansetron HCl (Zofran Inj) 4 mg IVP Q6 PRN PRN Reason: Nausea/Vomiting Last Admin: 07/12/18 10:40 Dose: 4 mg Pravastatin Sodium (Pravachol) 20 mg PO HS [facility] Last Admin: 07/20/18 21:02 Dose: 20 mg - Labs Labs: 07/21/18 06:30 07/21/18 06:30 PT 14.9 Seconds (9.8-13.1) H 07/18/18 05:00 INR 1.3 07/18/18 05:00 APTT 25.6 Seconds (25.6-37.1) 07/18/18 05:00 - Constitutional Appears: Well, Non-toxic, No Acute Distress - Head Exam Head Exam: ATRAUMATIC, NORMAL INSPECTION, NORMOCEPHALIC - Eye Exam Eye Exam: EOMI, Normal appearance, PERRL Pupil Exam: NORMAL ACCOMODATION, PERRL - ENT Exam ENT Exam: Mucous Membranes Moist, Normal Exam - Neck Exam Neck Exam: Full ROM, Normal Inspection - Respiratory Exam Respiratory Exam: Clear to Ausculation Bilateral, NORMAL BREATHING PATTERN - Cardiovascular Exam Cardiovascular Exam: REGULAR RHYTHM, +S1, +S2 - GI/Abdominal Exam GI & Abdominal Exam: Soft, Normal Bowel Sounds - Neurological Exam Neurological Exam: Alert, Awake, Oriented x3 - Psychiatric Exam Psychiatric exam: Normal Affect, Normal Mood - Skin Skin Exam: Dry, Intact, Normal Color, Warm Assessment and Plan - Assessment and Plan (Free Text) Assessment: 87 F who presents with septic shock, acute respiratory failure, elevated lactate, s/p exploratory laparotomy, lysis of adhesion, and repair of enterotomy x2 for SBO POD #9 Chest/ Abd/ pelvis CT: 1.Mildly large left and mild right pleural effusions exert extensive compression atelectasis at the bilateral lower lobes with pneumonia difficult to exclude underlying these findings but not favored either. 2. Stable cardiomegaly. No pericardial effusion. 3. Lax posterior tracheal wall is seen at the central inferior trachea near the thoracic inlet. Extrinsic compression is not excluded, even possibly on the basis of esophageal thickening here. Clinically correlate further. 4. Diminishing small bowel dilatation with oral contrast now present in the ascending colon and proximal transverse segments. Limited postoperative changes seen the abdomen status post prior laparotomy. 5. Extensive colonic diverticulosis without definite diverticulitis. Note is made of distal sigmoid mural thickening clearly identified on the prior CT in this could reflect interval inflammatory or infectious process with ischemia less likely. 6.Note is made of heterogeneous density involving the T6 vertebral body potentially reflecting Paget's disease or other benign productive bony process. RUE US 07/19/18: negative for DVT Plan: Small bowel obstruction/ s/p ex laparotomy POD 9 - General surgery, Dr. Mendez on board - Pain management with toradol - continue IVF - Tolerating PO - PT - Wound vac - encouraged incentive spirometry - f/u Surgery recs. AFib - NSR HR 95 on monitor - Cardiology consulted, recs appreciated - Digoxine 0.125 mg daily - Echo: preserved left ventricular systolic function. Acute [place] - likely 2/2 hypotension during surgery or tachycardia during A Fib. - Hemodynamically stable - troponin elevation ( less than 10 days of MA) - Echo: preserved left ventricular systolic function. - Cardiology on board, recs appreciated Bilateral Pleural effusion - Abd CT: larger in left that Right - Pulmonology consult, recs appreciated - f/u CXR - afebrile Hypertension - controlled - metoprolol succinated 50 mg ER Hyperlipidemia - resume pravastatin 20 mg po hs GERD - start protonix 40 mg IVP Hiatal hernia - c/w protonix 40 mg IVP Cognitive impairment - aricept Insomnia/anxiety - remeron and aricept DVT prophylaxis - SCDs - Lovenox 40 sc <Demario Cowan D - Last Filed: 07/21/18 11:23> Objective - Vital Signs/Intake and Output Vital Signs (last 24 hours): Temp Pulse Resp BP Pulse Ox 98.6 F 99 H 15 137/70 94 L 07/21/18 08:00 07/21/18 09:00 07/21/18 11:16 07/21/18 09:00 07/21/18 09:00 Intake and Output: 07/21/18 07/21/18 06:59 18:59 Intake Total 500 170 Balance 500 170 - Medications Medications: Current Medications Acetylcysteine (Acetylcysteine 20%) 2 ml INH RBID [facility] Last Admin: 07/21/18 07:14 Dose: 2 ml Albuterol Sulfate (Albuterol 0.083% Inhal Julieth (2.5 Mg/3 Ml) Ud) 2.5 mg INH RBID [facility] Last Admin: 07/21/18 07:14 Dose: 2.5 mg Albuterol/Ipratropium (Duoneb 3 Mg/0.5 Mg (3 Ml) Ud) 3 ml INH RQ6 PRN PRN Reason: Shortness of Breath Last Admin: 07/15/18 21:58 Dose: 3 ml Digoxin (Digoxin) 0.125 mg PO DAILY [facility] Last Admin: 07/21/18 08:17 Dose: 0.125 mg Donepezil HCl (Aricept) 10 mg NG HS [facility] Last Admin: 07/20/18 21:02 Dose: 10 mg Metronidazole (Flagyl 500mg/100ml Ns) 100 mls @ 100 mls/hr IVPB Q8 [facility]; Protocol Last Admin: 07/21/18 08:53 Dose: 100 mls/hr Fluconazole (Diflucan Iv 100 Mg/50 Ml Ns) 50 mls @ 50 mls/hr IVPB DAILY [facility]; Protocol Last Admin: 07/21/18 08:18 Dose: 50 mls/hr Vancomycin HCl 750 mg/ Sodium (Chloride) 250 mls @ 166.667 mls/hr IVPB Q12 [facility]; Protocol Last Admin: 07/21/18 09:21 Dose: 166.667 mls/hr Ketorolac Tromethamine (Toradol) 30 mg IVP Q6 PRN PRN Reason: Pain, severe (8-10) Last Admin: 07/20/18 10:58 Dose: 30 mg Mirtazapine (Remeron) 30 mg PO HS [facility] Last Admin: 07/20/18 21:02 Dose: 30 mg Ondansetron HCl (Zofran Inj) 4 mg IVP Q6 PRN PRN Reason: Nausea/Vomiting Last Admin: 07/12/18 10:40 Dose: 4 mg Pravastatin Sodium (Pravachol) 20 mg PO HS [facility] Last Admin: 07/20/18 21:02 Dose: 20 mg - Labs Labs: 07/21/18 06:30 07/21/18 06:30 PT 14.9 Seconds (9.8-13.1) H 07/18/18 05:00 INR 1.3 07/18/18 05:00 APTT 25.6 Seconds (25.6-37.1) 07/18/18 05:00 Attending/Attestation - Attestation I have personally seen and examined this patient.: Yes I have fully participated in the care of the patient.: Yes I have reviewed all pertinent clinical information, including history, physical exam and plan: Yes Notes (Text): 07/21/18 11:22 Patient seen and examined with resident. Case discussed and agreed with assessment and plan.
[2018-07-21] MEDS: Pravastatin Sodium 20 MG TAB PO SCH (21:07)
--- NOTE | 2018-07-21 23:00 | CP.PCM.PN ---
Subjective - Date & Time of Evaluation Date of Evaluation: 07/19/18 Time of Evaluation: 12:00 - Subjective Subjective: Has some abdominal pain. Objective - Vital Signs/Intake and Output Vital Signs (last 24 hours): Temp Pulse Resp BP Pulse Ox 97.5 F L 98 H 18 140/71 97 07/21/18 21:24 07/21/18 21:24 07/21/18 21:24 07/21/18 21:24 07/21/18 21:24 Intake and Output: 07/21/18 07/22/18 18:59 06:59 Intake Total 1240 Output Total 1 Balance 1239 - Medications Medications: Current Medications Acetylcysteine (Acetylcysteine 20%) 2 ml INH RBID [facility] Last Admin: 07/21/18 19:44 Dose: 2 ml Albuterol Sulfate (Albuterol 0.083% Inhal Julieth (2.5 Mg/3 Ml) Ud) 2.5 mg INH RBID [facility] Last Admin: 07/21/18 19:44 Dose: 2.5 mg Albuterol/Ipratropium (Duoneb 3 Mg/0.5 Mg (3 Ml) Ud) 3 ml INH RQ6 PRN PRN Reason: Shortness of Breath Last Admin: 07/15/18 21:58 Dose: 3 ml Digoxin (Digoxin) 0.125 mg PO DAILY [facility] Last Admin: 07/21/18 08:17 Dose: 0.125 mg Donepezil HCl (Aricept) 10 mg NG HS [facility] Last Admin: 07/21/18 21:07 Dose: 10 mg Metronidazole (Flagyl 500mg/100ml Ns) 100 mls @ 100 mls/hr IVPB Q8 [facility]; Protocol Last Admin: 07/21/18 16:10 Dose: 100 mls/hr Fluconazole (Diflucan Iv 100 Mg/50 Ml Ns) 50 mls @ 50 mls/hr IVPB DAILY [facility]; Protocol Last Admin: 07/21/18 08:18 Dose: 50 mls/hr Ketorolac Tromethamine (Toradol) 30 mg IVP Q6 PRN PRN Reason: Pain, severe (8-10) Last Admin: 07/20/18 10:58 Dose: 30 mg Mirtazapine (Remeron) 30 mg PO HS [facility] Last Admin: 07/21/18 21:08 Dose: 30 mg Ondansetron HCl (Zofran Inj) 4 mg IVP Q6 PRN PRN Reason: Nausea/Vomiting Last Admin: 07/12/18 10:40 Dose: 4 mg Pravastatin Sodium (Pravachol) 20 mg PO HS [facility] Last Admin: 07/21/18 21:07 Dose: 20 mg - Labs Labs: 07/21/18 06:30 07/21/18 06:30 PT 14.9 Seconds (9.8-13.1) H 07/18/18 05:00 INR 1.3 07/18/18 05:00 APTT 25.6 Seconds (25.6-37.1) 07/18/18 05:00 - Head Exam Head Exam: ATRAUMATIC - Eye Exam Eye Exam: Normal appearance - ENT Exam ENT Exam: Mucous Membranes Dry - Respiratory Exam Respiratory Exam: NORMAL BREATHING PATTERN - Cardiovascular Exam Cardiovascular Exam: +S1, +S2 - GI/Abdominal Exam GI & Abdominal Exam: Normal Bowel Sounds Assessment and Plan (1) Anemia Assessment & Plan: chronic disease H/H fairly stable Status: Acute
[2018-07-22] MEDS: metroNIDAZOLE 500mg/100ml NS 100 ML IVPB SCH ×3 (00:53→16:10)
[2018-07-22 05:49] LABS: HEMOGLOBIN 10.3 g/dL (12.0-16.0); MEAN CORPUSCULAR HEMOGLOBIN 30.4 pg (27.0-31.0); MEAN CORPUSCULAR HGB CONC 33.7 g/dL (33.0-37.0); RBC 3.38 Mil/uL (3.80-5.20); RED CELL DISTRIBUTION WIDTH 14.8 % (11.5-14.5); WHITE BLOOD COUNT 11.1 K/uL (4.8-10.8)
[2018-07-22 06:10] LABS: ALB/GLOB RATIO 0.9 (1.0-2.1); ALT/SGPT 20 U/L (9-52); AST/SGOT 25 U/L (14-36); BLOOD UREA NITROGEN 19 mg/dl (7-17); CALCIUM 8.2 mg/dL (8.4-10.2); GFR NON-AFRICAN AMERICAN > 60
--- NOTE | 2018-07-22 06:58 | CP.PCM.PN ---
Subjective - Date & Time of Evaluation Date of Evaluation: 07/22/18 Time of Evaluation: 06:58 - Subjective Subjective: Patient seen and examined at bedside, transferred to [facility] last night. Eating breakfast, tolerating well PO, no overnights events, no abdominal pain a this time. Patient also denies CP, sob, fever, chills, chest pain, diarrhea or constip ation. Having BM and passing gas. Objective - Vital Signs/Intake and Output Vital Signs (last 24 hours): Temp Pulse Resp BP Pulse Ox 98.5 F 92 H 20 135/77 95 07/22/18 04:22 07/22/18 04:22 07/22/18 04:22 07/22/18 04:22 07/22/18 04:22 Intake and Output: 07/21/18 07/22/18 18:59 06:59 Intake Total 1240 Output Total 1 Balance 1239 - Medications Medications: Current Medications Acetylcysteine (Acetylcysteine 20%) 2 ml INH RBID [facility] Last Admin: 07/21/18 19:44 Dose: 2 ml Albuterol Sulfate (Albuterol 0.083% Inhal Julieth (2.5 Mg/3 Ml) Ud) 2.5 mg INH RBID [facility] Last Admin: 07/21/18 19:44 Dose: 2.5 mg Albuterol/Ipratropium (Duoneb 3 Mg/0.5 Mg (3 Ml) Ud) 3 ml INH RQ6 PRN PRN Reason: Shortness of Breath Last Admin: 07/15/18 21:58 Dose: 3 ml Digoxin (Digoxin) 0.125 mg PO DAILY [facility] Last Admin: 07/21/18 08:17 Dose: 0.125 mg Donepezil HCl (Aricept) 10 mg NG HS [facility] Last Admin: 07/21/18 21:07 Dose: 10 mg Metronidazole (Flagyl 500mg/100ml Ns) 100 mls @ 100 mls/hr IVPB Q8 [facility]; Protocol Last Admin: 07/22/18 00:53 Dose: 100 mls/hr Fluconazole (Diflucan Iv 100 Mg/50 Ml Ns) 50 mls @ 50 mls/hr IVPB DAILY [facility]; Protocol Last Admin: 07/21/18 08:18 Dose: 50 mls/hr Ketorolac Tromethamine (Toradol) 30 mg IVP Q6 PRN PRN Reason: Pain, severe (8-10) Last Admin: 07/20/18 10:58 Dose: 30 mg Mirtazapine (Remeron) 30 mg PO HS [facility] Last Admin: 07/21/18 21:08 Dose: 30 mg Ondansetron HCl (Zofran Inj) 4 mg IVP Q6 PRN PRN Reason: Nausea/Vomiting Last Admin: 07/12/18 10:40 Dose: 4 mg Pravastatin Sodium (Pravachol) 20 mg PO HS [facility] Last Admin: 07/21/18 21:07 Dose: 20 mg - Labs Labs: 07/22/18 05:20 07/22/18 05:20 PT 14.9 Seconds (9.8-13.1) H 07/18/18 05:00 INR 1.3 07/18/18 05:00 APTT 25.6 Seconds (25.6-37.1) 07/18/18 05:00 - Constitutional Appears: No Acute Distress - Head Exam Head Exam: NORMAL INSPECTION - Respiratory Exam Respiratory Exam: Decreased Breath Sounds, Clear to Ausculation Bilateral. absent: Accessory Muscle Use - Cardiovascular Exam Cardiovascular Exam: REGULAR RHYTHM, +S1, +S2 - GI/Abdominal Exam GI & Abdominal Exam: Soft, Tenderness (mild around wound), Normal Bowel Sounds. absent: Distended Additional comments: Wound vac in place, dressing c/d/i - Extremities Exam Extremities Exam: absent: Calf Tenderness Additional comments: Bilateral upper extremities edema - Neurological Exam Neurological Exam: Alert, Awake, Oriented x3 - Skin Skin Exam: Dry, Warm Assessment and Plan - Assessment and Plan (Free Text) Assessment: 87 F who presents with septic shock, acute respiratory failure, elevated lactate, s/p exploratory laparotomy, lysis of adhesion, and repair of enterotomy x2 for SBO POD 10 Chest/ Abd/ pelvis CT: 1.Mildly large left and mild right pleural effusions exert extensive compression atelectasis at the bilateral lower lobes with pneumonia difficult to exclude underlying these findings but not favored either. 2. Stable cardiomegaly. No pericardial effusion. 3. Lax posterior tracheal wall is seen at the central inferior trachea near the thoracic inlet. Extrinsic compression is not excluded, even possibly on the basis of esophageal thickening here. Clinically correlate further. 4. Diminishing small bowel dilatation with oral contrast now present in the a scending colon and proximal transverse segments. Limited postoperative changes seen the abdomen status post prior laparotomy. 5. Extensive colonic diverticulosis without definite diverticulitis. Note is made of distal sigmoid mural thickening clearly identified on the prior CT in this could reflect interval inflammatory or infectious process with ischemia less likely. 6.Note is made of heterogeneous density involving the T6 vertebral body potentially reflecting Paget's disease or other benign productive bony process. RUE US 07/19/18: negative for DVT Plan: Small bowel obstruction/ s/p ex laparotomy POD 10 - General surgery, Dr. Mendez on board - Pain management - continue IVF - Tolerating PO - Wound vac - encouraged incentive spirometry and OOB - PT AFib - NSR HR 95 on monitor - Cardiology consulted, recs appreciated - Digoxine 0.125 mg daily - Echo: preserved left ventricular systolic function. Acute NE - likely 2/2 hypotension during surgery or tachycardia during A Fib. - Hemodynamically stable - Echo: preserved left ventricular systolic function. - Cardiology on board, recs appreciated Bilateral Pleural effusion - Abd CT: larger in left that Right - Pulmonology consult, recs appreciated - f/u CXR - afebrile Hypertension - controlled - metoprolol succinated 50 mg ER Hyperlipidemia - resume pravastatin 20 mg po hs GERD - start protonix 40 mg IVP Hiatal hernia - c/w protonix 40 mg IVP Cognitive impairment - aricept Insomnia/anxiety - remeron and aricept DVT prophylaxis - SCDs - Lovenox 40 sc Case seen and examined with Dr Ernesto Ramírez PGY 2
[2018-07-22] MEDS: Albuterol-Ipratrop 3 mg / 0.5 (3 ml) UD INH PRN (07:36)
[2018-07-22] MEDS: Acetylcysteine 20% Inhal Soln (4ml) INH SCH ×2 (07:36→19:03)
[2018-07-22] MEDS: Digoxin 125 mcg (0.125 mg) Tab PO SCH (08:20)
[2018-07-22 08:21] VITALS: PULSE 86
[2018-07-22] MEDS ORDERED: Potassium Chloride 20 mEq ER Tab PO ONE (08:32)
--- NOTE | 2018-07-22 09:23 | CP.PCM.PN ---
<Tremayne Candelaria - Last Filed: 07/22/18 10:46> Subjective - Date & Time of Evaluation Date of Evaluation: 07/22/18 Time of Evaluation: 08:00 - Subjective Subjective: General Surgery Note for Dr. Mendez Patient seen and examined at bedside. No acute event overnight. Patient denies pain, cp , or SOB. She remains on HFNC. She admits to passsing flatus and BMs. She is tolerating diet. Objective - Vital Signs/Intake and Output Vital Signs (last 24 hours): Temp Pulse Resp BP Pulse Ox 98.1 F 86 22 113/67 95 07/22/18 08:22 07/22/18 08:22 07/22/18 08:35 07/22/18 08:22 07/22/18 08:22 - Medications Medications: Current Medications Acetylcysteine (Acetylcysteine 20%) 2 ml INH RBID [facility] Last Admin: 07/22/18 07:36 Dose: 2 ml Albuterol Sulfate (Albuterol 0.083% Inhal Julieht (2.5 Mg/3 Ml) Ud) 2.5 mg INH RBID [facility] Last Admin: 07/21/18 19:44 Dose: 2.5 mg Albuterol/Ipratropium (Duoneb 3 Mg/0.5 Mg (3 Ml) Ud) 3 ml INH RQ6 PRN PRN Reason: Shortness of Breath Last Admin: 07/22/18 07:36 Dose: 3 ml Digoxin (Digoxin) 0.125 mg PO DAILY [facility] Last Admin: 07/22/18 08:20 Dose: 0.125 mg Donepezil HCl (Aricept) 10 mg NG HS [facility] Last Admin: 07/21/18 21:07 Dose: 10 mg Metronidazole (Flagyl 500mg/100ml Ns) 100 mls @ 100 mls/hr IVPB Q8 [facility]; Protocol Last Admin: 07/22/18 08:19 Dose: 100 mls/hr Fluconazole (Diflucan Iv 100 Mg/50 Ml Ns) 50 mls @ 50 mls/hr IVPB DAILY [facility]; Protocol Last Admin: 07/21/18 08:18 Dose: 50 mls/hr Ketorolac Tromethamine (Toradol) 30 mg IVP Q6 PRN PRN Reason: Pain, severe (8-10) Last Admin: 07/20/18 10:58 Dose: 30 mg Mirtazapine (Remeron) 30 mg PO HS [facility] Last Admin: 07/21/18 21:08 Dose: 30 mg Ondansetron HCl (Zofran Inj) 4 mg IVP Q6 PRN PRN Reason: Nausea/Vomiting Last Admin: 07/12/18 10:40 Dose: 4 mg Pravastatin Sodium (Pravachol) 20 mg PO HS [facility] Last Admin: 07/21/18 21:07 Dose: 20 mg - Labs Labs: 07/22/18 05:20 07/22/18 05:20 PT 14.9 Seconds (9.8-13.1) H 07/18/18 05:00 INR 1.3 07/18/18 05:00 APTT 25.6 Seconds (25.6-37.1) 07/18/18 05:00 - Constitutional Appears: No Acute Distress - Head Exam Head Exam: ATRAUMATIC, NORMOCEPHALIC - Eye Exam Eye Exam: Normal appearance - ENT Exam ENT Exam: Mucous Membranes Moist - Respiratory Exam Respiratory Exam: NORMAL BREATHING PATTERN - Cardiovascular Exam Cardiovascular Exam: REGULAR RHYTHM - GI/Abdominal Exam GI & Abdominal Exam: Soft, Normal Bowel Sounds. absent: Distended, Firm, Guarding, Rigid, Tenderness, Hernia, Mass, Rebound Additional comments: wound vac over surgical scar - Extremities Exam Extremities Exam: Normal Capillary Refill - Back Exam Back Exam: absent: CVA tenderness (L), CVA tenderness (R) - Neurological Exam Neurological Exam: Alert, Awake, Oriented x3 - Psychiatric Exam Psychiatric exam: Normal Affect, Normal Mood - Skin Skin Exam: Dry, Warm Assessment and Plan - Assessment and Plan (Free Text) Assessment: 87 F s/p exploratory laparotomy POD#10 Plan: -Reg diet -Wean from HFNC to NC and eventually room air -Replete electrolytes -Lasix 20 mg IVP once -Change wound vac today -Discussed with Dr. Lester PGY2 <Wilder Bullock - Last Filed: 07/26/18 10:25> Objective - Vital Signs/Intake and Output Vital Signs (last 24 hours): Temp Pulse Resp BP Pulse Ox 97.5 F L 86 20 110/70 95 07/22/18 12:48 07/22/18 12:48 07/22/18 12:48 07/22/18 12:48 07/22/18 12:48 - Medications Medications: Current Medications Acetylcysteine (Acetylcysteine 20%) 2 ml INH RBID [facility] Last Admin: 07/22/18 07:36 Dose: 2 ml Albuterol Sulfate (Albuterol 0.083% Inhal Julieth (2.5 Mg/3 Ml) Ud) 2.5 mg INH RBID [facility] Last Admin: 07/21/18 19:44 Dose: 2.5 mg Albuterol/Ipratropium (Duoneb 3 Mg/0.5 Mg (3 Ml) Ud) 3 ml INH RQ6 PRN PRN Reason: Shortness of Breath Last Admin: 07/22/18 07:36 Dose: 3 ml Donepezil HCl (Aricept) 10 mg NG HS [facility] Last Admin: 07/21/18 21:07 Dose: 10 mg Metronidazole (Flagyl 500mg/100ml Ns) 100 mls @ 100 mls/hr IVPB Q8 [facility]; Protocol Last Admin: 07/22/18 08:19 Dose: 100 mls/hr Fluconazole (Diflucan Iv 100 Mg/50 Ml Ns) 50 mls @ 50 mls/hr IVPB DAILY [facility]; Protocol Last Admin: 07/22/18 11:29 Dose: 50 mls/hr Ketorolac Tromethamine (Toradol) 30 mg IVP Q6 PRN PRN Reason: Pain, severe (8-10) Last Admin: 07/20/18 10:58 Dose: 30 mg Mirtazapine (Remeron) 30 mg PO HS [facility] Last Admin: 07/21/18 21:08 Dose: 30 mg Ondansetron HCl (Zofran Inj) 4 mg IVP Q6 PRN PRN Reason: Nausea/Vomiting Last Admin: 07/12/18 10:40 Dose: 4 mg Pravastatin Sodium (Pravachol) 20 mg PO HS [facility] Last Admin: 07/21/18 21:07 Dose: 20 mg - Labs Labs: 07/22/18 05:20 07/22/18 05:20 PT 14.9 Seconds (9.8-13.1) H 07/18/18 05:00 INR 1.3 07/18/18 05:00 APTT 25.6 Seconds (25.6-37.1) 07/18/18 05:00 Assessment and Plan - Assessment and Plan (Free Text) Plan: All medical record entries made by the resident were at my direction and personally directed by me. I have reviewed the chart and agree that the record accurately reflects my personal performance of the history, physical exam, medical decision making. I have also personally directed, reviewed, and agree with the resident note.
--- NOTE | 2018-07-22 09:38 | CP.PCM.PN ---
Subjective - Date & Time of Evaluation Date of Evaluation: 07/22/18 Time of Evaluation: 09:00 - Subjective Subjective: Resting comfortably in bed, able to lie virtually flat. Respiratory rate was 16 breaths/min with a heart rate of 70 bpm and regular. Blood pressure 134/74 mmHg. Inspiratory effort was poor but no rales were audible. Urinary output was excellent with a stable BUN and creatinine. Electrolytes were normal. The patient has had steady sinus rhythm for over 4 days and will discontinue digoxin. The patient has been getting out of bed occasionally for couple of days. Objective - Vital Signs/Intake and Output Vital Signs (last 24 hours): Temp Pulse Resp BP Pulse Ox 98.1 F 86 22 113/67 95 07/22/18 08:22 07/22/18 08:22 07/22/18 08:35 07/22/18 08:22 07/22/18 08:22 - Medications Medications: Current Medications Acetylcysteine (Acetylcysteine 20%) 2 ml INH RBID [facility] Last Admin: 07/22/18 07:36 Dose: 2 ml Albuterol Sulfate (Albuterol 0.083% Inhal Julieth (2.5 Mg/3 Ml) Ud) 2.5 mg INH RBID [facility] Last Admin: 07/21/18 19:44 Dose: 2.5 mg Albuterol/Ipratropium (Duoneb 3 Mg/0.5 Mg (3 Ml) Ud) 3 ml INH RQ6 PRN PRN Reason: Shortness of Breath Last Admin: 07/22/18 07:36 Dose: 3 ml Donepezil HCl (Aricept) 10 mg NG HS [facility] Last Admin: 07/21/18 21:07 Dose: 10 mg Metronidazole (Flagyl 500mg/100ml Ns) 100 mls @ 100 mls/hr IVPB Q8 [facility]; Protocol Last Admin: 07/22/18 08:19 Dose: 100 mls/hr Fluconazole (Diflucan Iv 100 Mg/50 Ml Ns) 50 mls @ 50 mls/hr IVPB DAILY [facility]; Protocol Last Admin: 07/21/18 08:18 Dose: 50 mls/hr Magnesium Sulfate/Dextrose (Magnesium Sulfate 1 Gm/100 Ml D5w) 1 gm in 100 mls @ 200 mls/hr IVPB ONCE ONE Stop: 07/22/18 10:29 Ketorolac Tromethamine (Toradol) 30 mg IVP Q6 PRN PRN Reason: Pain, severe (8-10) Last Admin: 07/20/18 10:58 Dose: 30 mg Mirtazapine (Remeron) 30 mg PO HS [facility] Last Admin: 07/21/18 21:08 Dose: 30 mg Ondansetron HCl (Zofran Inj) 4 mg IVP Q6 PRN PRN Reason: Nausea/Vomiting Last Admin: 07/12/18 10:40 Dose: 4 mg Potassium Chloride (Potassium Chloride Oral Soln) 40 meq PO ONCE ONE Stop: 07/22/18 10:01 Pravastatin Sodium (Pravachol) 20 mg PO HS [facility] Last Admin: 07/21/18 21:07 Dose: 20 mg - Labs Labs: 07/22/18 05:20 07/22/18 05:20 PT 14.9 Seconds (9.8-13.1) H 07/18/18 05:00 INR 1.3 07/18/18 05:00 APTT 25.6 Seconds (25.6-37.1) 07/18/18 05:00
[2018-07-22] MEDS ORDERED: Magnesium Sulfate 1 gm in D5W 1 GM/100 ML BAG IVPB ONE (10:00)
[2018-07-22] MEDS ORDERED: Potassium Chloride 20 mEq/15 ml LIQ UD PO ONE (10:00)
--- NOTE | 2018-07-22 10:48 | CP.PCM.PN ---
Subjective - Date & Time of Evaluation Date of Evaluation: 07/22/18 Time of Evaluation: 10:43 - Subjective Subjective: Seen in telemetry. Appears to be doing well. Awake and alert, being fed breakfast. Vital signs have been stable. Last CXR from the is stable. Using IS and CPT/Acapella both. Congested cough noted with expectoration of clear mucoid sputum. Neck is supple and trachea midline. Breath sounds are present in both lungs. Some bronchial character to the breath sounds noted in the left base. Right lung appears relatively clear to auscultation. Continue present regimen unchanged. Mobilize as tolerated. CT chest w/o contrast is a consideration. Objective - Vital Signs/Intake and Output Vital Signs (last 24 hours): Temp Pulse Resp BP Pulse Ox 98.1 F 86 22 113/67 95 07/22/18 08:22 07/22/18 08:22 07/22/18 08:35 07/22/18 08:22 07/22/18 08:22 Intake and Output: 07/21/18 07/22/18 23:59 11:59 Intake Total 600 Output Total 1 Balance 599 - Medications Medications: Current Medications Acetylcysteine (Acetylcysteine 20%) 2 ml INH RBID [facility]ILA Last Admin: 07/22/18 07:36 Dose: 2 ml Albuterol Sulfate (Albuterol 0.083% Inhal Julieth (2.5 Mg/3 Ml) Ud) 2.5 mg INH RBID LEILA Last Admin: 07/21/18 19:44 Dose: 2.5 mg Albuterol/Ipratropium (Duoneb 3 Mg/0.5 Mg (3 Ml) Ud) 3 ml INH RQ6 PRN PRN Reason: Shortness of Breath Last Admin: 07/22/18 07:36 Dose: 3 ml Donepezil HCl (Aricept) 10 mg NG HS [facility]A Last Admin: 07/21/18 21:07 Dose: 10 mg Metronidazole (Flagyl 500mg/100ml Ns) 100 mls @ 100 mls/hr IVPB Q8 [facility]A; Protocol Last Admin: 07/22/18 08:19 Dose: 100 mls/hr Fluconazole (Diflucan Iv 100 Mg/50 Ml Ns) 50 mls @ 50 mls/hr IVPB DAILY [facility]; Protocol Last Admin: 07/21/18 08:18 Dose: 50 mls/hr Ketorolac Tromethamine (Toradol) 30 mg IVP Q6 PRN PRN Reason: Pain, severe (8-10) Last Admin: 07/20/18 10:58 Dose: 30 mg Mirtazapine (Remeron) 30 mg PO HS [facility] Last Admin: 07/21/18 21:08 Dose: 30 mg Ondansetron HCl (Zofran Inj) 4 mg IVP Q6 PRN PRN Reason: Nausea/Vomiting Last Admin: 07/12/18 10:40 Dose: 4 mg Pravastatin Sodium (Pravachol) 20 mg PO HS [facility] Last Admin: 07/21/18 21:07 Dose: 20 mg - Labs Labs: 07/22/18 05:20 07/22/18 05:20 PT 14.9 Seconds (9.8-13.1) H 07/18/18 05:00 INR 1.3 07/18/18 05:00 APTT 25.6 Seconds (25.6-37.1) 07/18/18 05:00 Assessment and Plan (1) Pleural effusion Status: Acute (2) Atelectasis Status: Acute (3) Acute respiratory insufficiency Status: Acute
[2018-07-22] MEDS: Fluconazole IV 100mg/50 ml NS 50 ML IVPB SCH (11:29)
[2018-07-22] MEDS: Albuterol 0.083% Inhal Sol (2.5 mg/3 mL) UD INH SCH ×2 (15:08→19:03)
[2018-07-22] MEDS: Meropenem 500 MG in Sodium Chloride 0.9% 100 ML IVPB SCH (17:19)
[2018-07-22] MEDS: Pravastatin Sodium 20 MG TAB PO SCH (21:45)
--- NOTE | 2018-07-22 22:15 | CP.PCM.PN ---
Subjective - Date & Time of Evaluation Date of Evaluation: 07/22/18 Time of Evaluation: 18:00 - Subjective Subjective: Feeling better. Objective - Vital Signs/Intake and Output Vital Signs (last 24 hours): Temp Pulse Resp BP Pulse Ox 98.5 F 99 H 18 111/70 94 L 07/22/18 21:23 07/22/18 21:23 07/22/18 21:23 07/22/18 21:23 07/22/18 21:23 Intake and Output: 07/22/18 07/23/18 18:59 06:59 Intake Total 710 Balance 710 - Medications Medications: Current Medications Acetylcysteine (Acetylcysteine 20%) 2 ml INH RBID LEILA Last Admin: 07/22/18 19:03 Dose: 2 ml Albuterol Sulfate (Albuterol 0.083% Inhal Julieth (2.5 Mg/3 Ml) Ud) 2.5 mg INH RBID LEILA Last Admin: 07/22/18 19:03 Dose: 2.5 mg Albuterol/Ipratropium (Duoneb 3 Mg/0.5 Mg (3 Ml) Ud) 3 ml INH RQ6 PRN PRN Reason: Shortness of Breath Last Admin: 07/22/18 07:36 Dose: 3 ml Donepezil HCl (Aricept) 10 mg NG HS LEILA Last Admin: 07/22/18 21:46 Dose: 10 mg Metronidazole (Flagyl 500mg/100ml Ns) 100 mls @ 100 mls/hr IVPB Q8 [facility]; Protocol Last Admin: 07/22/18 16:10 Dose: 100 mls/hr Meropenem 500 mg/ Sodium (Chloride) 100 mls @ 100 mls/hr IVPB Q8 [facility]A; Protocol Last Admin: 07/22/18 17:19 Dose: 100 mls/hr Ketorolac Tromethamine (Toradol) 30 mg IVP Q6 PRN PRN Reason: Pain, severe (8-10) Last Admin: 07/20/18 10:58 Dose: 30 mg Mirtazapine (Remeron) 30 mg PO HS [facility] Last Admin: 07/22/18 21:45 Dose: 30 mg Ondansetron HCl (Zofran Inj) 4 mg IVP Q6 PRN PRN Reason: Nausea/Vomiting Last Admin: 07/12/18 10:40 Dose: 4 mg Pravastatin Sodium (Pravachol) 20 mg PO HS [facility] Last Admin: 07/22/18 21:45 Dose: 20 mg - Labs Labs: 07/22/18 05:20 07/22/18 05:20 PT 14.9 Seconds (9.8-13.1) H 07/18/18 05:00 INR 1.3 07/18/18 05:00 APTT 25.6 Seconds (25.6-37.1) 07/18/18 05:00 - Head Exam Head Exam: ATRAUMATIC - Eye Exam Eye Exam: Normal appearance - ENT Exam ENT Exam: Mucous Membranes Dry - Respiratory Exam Respiratory Exam: NORMAL BREATHING PATTERN - Cardiovascular Exam Cardiovascular Exam: +S1, +S2 - GI/Abdominal Exam GI & Abdominal Exam: Normal Bowel Sounds Assessment and Plan (1) Anemia Assessment & Plan: chronic disease H/H fairly stable Status: Acute
[2018-07-23] MEDS: Meropenem 500 MG in Sodium Chloride 0.9% 100 ML IVPB SCH ×3 (01:41→16:26)
[2018-07-23] MEDS: metroNIDAZOLE 500mg/100ml NS 100 ML IVPB SCH ×3 (01:42→16:27)
[2018-07-23] MEDS: Albuterol-Ipratrop 3 mg / 0.5 (3 ml) UD INH PRN (04:37)
[2018-07-23 05:39] LABS: HEMOGLOBIN 10.2 g/dL (12.0-16.0); MEAN CELL VOLUME 89.6 fl (81.0-99.0); MEAN CORPUSCULAR HEMOGLOBIN 29.3 pg (27.0-31.0); MEAN CORPUSCULAR HGB CONC 32.7 g/dL (33.0-37.0); RBC 3.48 Mil/uL (3.80-5.20); RED CELL DISTRIBUTION WIDTH 14.5 % (11.5-14.5); WHITE BLOOD COUNT 11.2 K/uL (4.8-10.8)
[2018-07-23 06:11] LABS: ALB/GLOB RATIO 0.9 (1.0-2.1); ALBUMIN 2.1 g/dL (3.5-5.0); ALT/SGPT 27 U/L (9-52); AST/SGOT 25 U/L (14-36); BLOOD UREA NITROGEN 16 mg/dl (7-17); CALCIUM 7.9 mg/dL (8.4-10.2); GFR NON-AFRICAN AMERICAN > 60
--- NOTE | 2018-07-23 06:59 | CP.PCM.PN ---
Subjective - Date & Time of Evaluation Date of Evaluation: 07/23/18 Time of Evaluation: 06:59 - Subjective Subjective: Patient seen and examined at bedside, feeling better, no overnights events, no abdominal pain a this time. Patient also denies CP, sob, fever, chills, chest pain, diarrhea or constipation. Having BM and passing gas. Objective - Vital Signs/Intake and Output Vital Signs (last 24 hours): Temp Pulse Resp BP Pulse Ox 98.3 F 87 18 133/76 96 07/23/18 05:00 07/23/18 05:00 07/23/18 05:00 07/23/18 05:00 07/23/18 05:00 Intake and Output: 07/22/18 07/23/18 18:59 06:59 Intake Total 710 Balance 710 - Medications Medications: Current Medications Acetylcysteine (Acetylcysteine 20%) 2 ml INH RBID [facility]ILA Last Admin: 07/22/18 19:03 Dose: 2 ml Albuterol Sulfate (Albuterol 0.083% Inhal Julieth (2.5 Mg/3 Ml) Ud) 2.5 mg INH RBID LEILA Last Admin: 07/22/18 19:03 Dose: 2.5 mg Albuterol/Ipratropium (Duoneb 3 Mg/0.5 Mg (3 Ml) Ud) 3 ml INH RQ6 PRN PRN Reason: Shortness of Breath Last Admin: 07/23/18 04:37 Dose: 3 ml Donepezil HCl (Aricept) 10 mg NG HS [facility]A Last Admin: 07/22/18 21:46 Dose: 10 mg Metronidazole (Flagyl 500mg/100ml Ns) 100 mls @ 100 mls/hr IVPB Q8 [facility]; Protocol Last Admin: 07/23/18 01:42 Dose: 100 mls/hr Meropenem 500 mg/ Sodium (Chloride) 100 mls @ 100 mls/hr IVPB Q8 [facility]; Protocol Last Admin: 07/23/18 01:41 Dose: 100 mls/hr Ketorolac Tromethamine (Toradol) 30 mg IVP Q6 PRN PRN Reason: Pain, severe (8-10) Last Admin: 07/20/18 10:58 Dose: 30 mg Mirtazapine (Remeron) 30 mg PO HS [facility] Last Admin: 07/22/18 21:45 Dose: 30 mg Ondansetron HCl (Zofran Inj) 4 mg IVP Q6 PRN PRN Reason: Nausea/Vomiting Last Admin: 07/12/18 10:40 Dose: 4 mg Pravastatin Sodium (Pravachol) 20 mg PO HS [facility] Last Admin: 07/22/18 21:45 Dose: 20 mg - Labs Labs: 07/23/18 04:40 07/23/18 04:40 PT 14.9 Seconds (9.8-13.1) H 07/18/18 05:00 INR 1.3 07/18/18 05:00 APTT 25.6 Seconds (25.6-37.1) 07/18/18 05:00 - Constitutional Appears: No Acute Distress - Head Exam Head Exam: NORMAL INSPECTION - Respiratory Exam Respiratory Exam: Decreased Breath Sounds, Rhonchi (bibasilar), NORMAL BREATHING PATTERN. absent: Accessory Muscle Use, Rales, Wheezes - Cardiovascular Exam Cardiovascular Exam: REGULAR RHYTHM, +S1, +S2. absent: Tachycardia - GI/Abdominal Exam GI & Abdominal Exam: Soft, Normal Bowel Sounds. absent: Distended, Tenderness Additional comments: Wound vac in place, dressing c/d/i - Extremities Exam Extremities Exam: absent: Calf Tenderness, Pedal Edema - Neurological Exam Neurological Exam: Alert, Awake, Oriented x3 - Skin Skin Exam: Dry, Warm Assessment and Plan - Assessment and Plan (Free Text) Assessment: 87 F who presents with septic shock, acute respiratory failure, elevated lactate, s/p exploratory laparotomy, lysis of adhesion, and repair of enterotomy x2 for SBO POD 11 Chest/ Abd/ pelvis CT: 1.Mildly large left and mild right pleural effusions exert extensive compression atelectasis at the bilateral lower lobes with pneumonia difficult to exclude underlying these findings but not favored either. 2. Stable cardiomegaly. No pericardial effusion. 3. Lax posterior tracheal wall is seen at the central inferior trachea near the thoracic inlet. Extrinsic compression is not excluded, even possibly on the basis of esophageal thickening here. Clinically correlate further. 4. Diminishing small bowel dilatation with oral contrast now present in the as cending colon and proximal transverse segments. Limited postoperative changes seen the abdomen status post prior laparotomy. 5. Extensive colonic diverticulosis without definite diverticulitis. Note is made of distal sigmoid mural thickening clearly identified on the prior CT in this could reflect interval inflammatory or infectious process with ischemia less likely. 6.Note is made of heterogeneous density involving the T6 vertebral body potentially reflecting Paget's disease or other benign productive bony process. RUE US 07/19/18: negative for DVT Plan: Small bowel obstruction/ s/p ex laparotomy POD 11 - General surgery, Dr. Mendez on board - Pain management - continue IVF - Tolerating PO - Wound vac - encouraged incentive spirometry and OOB - PT AFib, resolved - NSR HR 85 on monitor - Cardiology consulted, recs appreciated Acute UT - likely 2/2 hypotension during surgery or tachycardia during A Fib. - Hemodynamically stable - Echo: preserved left ventricular systolic function. - Cardiology on board, recs appreciated Bilateral Pleural effusion - Abd CT: larger in left that Right - Pulmonology consult, recs appreciated - f/u CXR - afebrile - weaned from HF to NC - for chest CT, f/u results Hypertension - controlled - metoprolol succinated 50 mg ER Hyperlipidemia - resume pravastatin 20 mg po hs GERD - start protonix 40 mg IVP Hiatal hernia - c/w protonix 40 mg IVP Cognitive impairment - aricept Insomnia/anxiety - remeron and aricept DVT prophylaxis - SCDs - Lovenox 40 sc Dispo: MANDEEP Case seen and examined with Dr Ernesto Ramírez PGY 2
[2018-07-23] MEDS: Albuterol 0.083% Inhal Sol (2.5 mg/3 mL) UD INH SCH ×3 (07:47→19:08)
[2018-07-23] MEDS: Acetylcysteine 20% Inhal Soln (4ml) INH SCH ×3 (07:47→19:08)
--- NOTE | 2018-07-23 07:52 | CP.PCM.PN ---
<Tremayne Candelaria - Last Filed: 07/23/18 09:08> Subjective - Date & Time of Evaluation Date of Evaluation: 07/23/18 Time of Evaluation: 07:15 - Subjective Subjective: General Surgery Note for Dr. Mendez Patient seen and examined at bedside. No acute event overnight. Pain is controlled. Patient denies cp, or SOB. She remains on HFNC. We will wean to NC. She admits to passsing flatus and BMs. She is tolerating diet. Wound vac with negative pressure therapy over surgical site. She has no complaints today. Objective - Vital Signs/Intake and Output Vital Signs (last 24 hours): Temp Pulse Resp BP Pulse Ox 98.3 F 87 18 133/76 96 07/23/18 05:00 07/23/18 05:00 07/23/18 05:00 07/23/18 05:00 07/23/18 05:00 - Medications Medications: Current Medications Acetylcysteine (Acetylcysteine 20%) 2 ml INH RBID LEILA Last Admin: 07/23/18 07:47 Dose: 2 ml Albuterol Sulfate (Albuterol 0.083% Inhal Julieth (2.5 Mg/3 Ml) Ud) 2.5 mg INH RBID LEILA Last Admin: 07/23/18 07:47 Dose: 2.5 mg Albuterol/Ipratropium (Duoneb 3 Mg/0.5 Mg (3 Ml) Ud) 3 ml INH RQ6 PRN PRN Reason: Shortness of Breath Last Admin: 07/23/18 04:37 Dose: 3 ml Donepezil HCl (Aricept) 10 mg NG HS [facility]ILA Last Admin: 07/22/18 21:46 Dose: 10 mg Metronidazole (Flagyl 500mg/100ml Ns) 100 mls @ 100 mls/hr IVPB Q8 [facility]; Protocol Last Admin: 07/23/18 01:42 Dose: 100 mls/hr Meropenem 500 mg/ Sodium (Chloride) 100 mls @ 100 mls/hr IVPB Q8 [facility]ILA; Protocol Last Admin: 07/23/18 01:41 Dose: 100 mls/hr Ketorolac Tromethamine (Toradol) 30 mg IVP Q6 PRN PRN Reason: Pain, severe (8-10) Last Admin: 03/23/19 10:58 Dose: 30 mg Mirtazapine (Remeron) 30 mg PO HS [facility] Last Admin: 07/22/18 21:45 Dose: 30 mg Ondansetron HCl (Zofran Inj) 4 mg IVP Q6 PRN PRN Reason: Nausea/Vomiting Last Admin: 07/12/18 10:40 Dose: 4 mg Pravastatin Sodium (Pravachol) 20 mg PO HS [facility] Last Admin: 07/22/18 21:45 Dose: 20 mg - Labs Labs: 07/23/18 04:40 07/23/18 04:40 PT 14.9 Seconds (9.8-13.1) H 07/18/18 05:00 INR 1.3 07/18/18 05:00 APTT 25.6 Seconds (25.6-37.1) 07/18/18 05:00 - Additional Findings Additional findings: - Constitutional Appears: No Acute Distress - Head Exam Head Exam: ATRAUMATIC, NORMOCEPHALIC - Eye Exam Eye Exam: Normal appearance - ENT Exam ENT Exam: Mucous Membranes Moist - Respiratory Exam Respiratory Exam: NORMAL BREATHING PATTERN - Cardiovascular Exam Cardiovascular Exam: REGULAR RHYTHM - GI/Abdominal Exam GI & Abdominal Exam: Soft, Normal Bowel Sounds. absent: Distended, Firm, Guarding, Rigid, Tenderness, Hernia, Mass, Rebound Additional comments: wound vac over surgical site - Extremities Exam Extremities Exam: Normal Capillary Refill - Back Exam Back Exam: absent: CVA tenderness (L), CVA tenderness (R) - Neurological Exam Neurological Exam: Alert, Awake, Oriented x3 - Psychiatric Exam Psychiatric exam: Normal Affect, Normal Mood - Skin Skin Exam: Dry, Warm Assessment and Plan - Assessment and Plan (Free Text) Assessment: 87 F s/p exploratory laparotomy POD#11 Plan: -Reg diet -Wean from HFNC to NC and eventually room air -Replete electrolytes as needed -wound vac change 07/25 -Discharge planning as per case management, patient will most likely need MANDEEP -PT -Discussed with Dr. Lester PGY2 <Wilder Bullock - Last Filed: 07/26/18 10:32> Objective - Vital Signs/Intake and Output Vital Signs (last 24 hours): Temp Pulse Resp BP Pulse Ox 97.6 F 81 18 145/81 98 07/26/18 07:57 07/26/18 07:57 07/26/18 07:57 07/26/18 07:57 07/26/18 07:57 - Medications Medications: Current Medications Albuterol Sulfate (Albuterol 0.083% Inhal Julieth (2.5 Mg/3 Ml) Ud) 2.5 mg INH RQID [facility]ILA Last Admin: 07/26/18 08:17 Dose: 2.5 mg Albuterol/Ipratropium (Duoneb 3 Mg/0.5 Mg (3 Ml) Ud) 3 ml INH RQ6 PRN PRN Reason: Shortness of Breath Last Admin: 07/24/18 10:03 Dose: 3 ml Donepezil HCl (Aricept) 10 mg NG HS [facility]A Last Admin: 07/25/18 21:31 Dose: 10 mg Metronidazole (Flagyl 500mg/100ml Ns) 100 mls @ 100 mls/hr IVPB Q8 LEILA; Protocol Last Admin: 07/26/18 09:08 Dose: 100 mls/hr Meropenem 500 mg/ Sodium (Chloride) 100 mls @ 100 mls/hr IVPB Q8 LEILA; Protocol Last Admin: 07/26/18 10:14 Dose: 100 mls/hr Ketorolac Tromethamine (Toradol) 30 mg IVP Q6 PRN PRN Reason: Pain, severe (8-10) Last Admin: 07/25/18 20:00 Dose: 30 mg Mirtazapine (Remeron) 30 mg PO HS [facility] Last Admin: 07/25/18 21:31 Dose: 30 mg Ondansetron HCl (Zofran Inj) 4 mg IVP Q6 PRN PRN Reason: Nausea/Vomiting Last Admin: 07/12/18 10:40 Dose: 4 mg Pravastatin Sodium (Pravachol) 20 mg PO HS [facility] Last Admin: 07/25/18 21:31 Dose: 20 mg - Labs Labs: 07/26/18 04:55 07/26/18 04:55 PT 14.9 Seconds (9.8-13.1) H 07/18/18 05:00 INR 1.3 07/18/18 05:00 APTT 25.6 Seconds (25.6-37.1) 07/18/18 05:00 Assessment and Plan - Assessment and Plan (Free Text) Plan: All medical record entries made by the resident were at my direction. I have reviewed the chart and agree that the record accurately reflects my personal performance of the history, physical exam, medical decision making. I have also personally examined the patient, reviewed, and agree the resident note.
--- NOTE | 2018-07-23 10:07 | CP.PCM.PN ---
Subjective - Date & Time of Evaluation Date of Evaluation: 07/23/18 Time of Evaluation: 10:03 - Subjective Subjective: Lying in bed, appears comfortable. Still has a congested cough and difficulty expectorating phlegm. Receives aerosol therapy with Mucomyst/albuterol BID. Apparently had some difficulty with 'choking' because of increased sputum last night while lying supine. Oxygenation remains good (96%) on HFNC. Afebrile, stable vital signs. Labs are stable. Cough is congested, but not productive. Rhonchi are heard in the lower lobes bilaterally. No audible wheezing, no bronchial breathing. Rare dry rales. Will request CT chest w/o contrast. Increase aerosol treatments to QID. If necessary therapeutic bronchoscopy. Objective - Vital Signs/Intake and Output Vital Signs (last 24 hours): Temp Pulse Resp BP Pulse Ox 97.6 F 83 18 121/73 94 L 07/23/18 07:57 07/23/18 07:57 07/23/18 07:57 07/23/18 07:57 07/23/18 07:57 Intake and Output: 07/22/18 07/23/18 23:59 11:59 Intake Total 710 Balance 710 - Medications Medications: Current Medications Acetylcysteine (Acetylcysteine 20%) 2 ml INH RBID LEILA Last Admin: 07/23/18 07:47 Dose: 2 ml Albuterol Sulfate (Albuterol 0.083% Inhal Julieth (2.5 Mg/3 Ml) Ud) 2.5 mg INH RBID LEILA Last Admin: 07/23/18 07:47 Dose: 2.5 mg Albuterol/Ipratropium (Duoneb 3 Mg/0.5 Mg (3 Ml) Ud) 3 ml INH RQ6 PRN PRN Reason: Shortness of Breath Last Admin: 07/23/18 04:37 Dose: 3 ml Donepezil HCl (Aricept) 10 mg NG HS [facility] Last Admin: 07/22/18 21:46 Dose: 10 mg Metronidazole (Flagyl 500mg/100ml Ns) 100 mls @ 100 mls/hr IVPB Q8 LEILA; Pro tocol Last Admin: 07/23/18 01:42 Dose: 100 mls/hr Meropenem 500 mg/ Sodium (Chloride) 100 mls @ 100 mls/hr IVPB Q8 LEILA; Protocol Last Admin: 07/23/18 08:15 Dose: 100 mls/hr Ketorolac Tromethamine (Toradol) 30 mg IVP Q6 PRN PRN Reason: Pain, severe (8-10) Last Admin: 07/20/18 10:58 Dose: 30 mg Mirtazapine (Remeron) 30 mg PO HS [facility] Last Admin: 07/22/18 21:45 Dose: 30 mg Ondansetron HCl (Zofran Inj) 4 mg IVP Q6 PRN PRN Reason: Nausea/Vomiting Last Admin: 07/12/18 10:40 Dose: 4 mg Pravastatin Sodium (Pravachol) 20 mg PO HS [facility] Last Admin: 07/22/18 21:45 Dose: 20 mg - Labs Labs: 07/23/18 04:40 07/23/18 04:40 PT 14.9 Seconds (9.8-13.1) H 07/18/18 05:00 INR 1.3 07/18/18 05:00 APTT 25.6 Seconds (25.6-37.1) 07/18/18 05:00 Assessment and Plan (1) Pleural effusion Status: Acute (2) Atelectasis Status: Acute (3) Acute respiratory insufficiency Status: Acute
--- NOTE | 2018-07-23 11:39 | CT ---
Date of service: 07/23/2018 PROCEDURE: CT Chest without contrast HISTORY: atelectasis COMPARISON: 07/16/2018. CT chest. TECHNIQUE: Contiguous axial images were obtained through the chest without intravenous contrast enhancement. Sagittal and coronal reconstructions were performed. Radiation dose: Total exam DLP = 450.13 mGy-cm. This CT exam was performed using one or more of the following dose reduction techniques: Automated exposure control, adjustment of the mA and/or kV according to patient size, and/or use of iterative reconstruction technique. FINDINGS: LUNGS: Stable compressive atelectatic changes bilaterally left greater than right. MEDIASTINUM: Unremarkable thoracic aorta. No aneurysm. Normal sized heart. Main pulmonary artery unremarkable. No vascular congestion. No lymphadenopathy. PICC line in satisfactory position Atherosclerotic calcification and mural plaque present. Findings are seen throughout the aorta PLEURA: Stable bilateral pleural effusions left larger than right. BONES: Compression deformity with cortical irregularity and retropulsed fragment T6 vertebral body unchanged compared to the prior study. UPPER ABDOMEN: Grossly unremarkable. OTHER FINDINGS: None. IMPRESSION: Stable bilateral pleural effusions left larger than right. Stable compressive atelectasis affecting the left lung to a greater extent than the right lung. Additional and stable findings described in greater detail above.
--- NOTE | 2018-07-23 12:11 | CP.PCM.PN ---
Subjective - Date & Time of Evaluation Date of Evaluation: 07/23/18 Time of Evaluation: 12:11 - Subjective Subjective: ID Note- Patient seen and examined today in tele floor. patient denies ay fever or chills. has wound vac in place for the abdominal surgical site. as per her cousin who is at her bedside she ahs been eating little. as per nurse no diarrhea. as per nurse pt. unable to expectorate. Objective - Vital Signs/Intake and Output Vital Signs (last 24 hours): Temp Pulse Resp BP Pulse Ox 97.5 F L 86 18 102/61 95 07/23/18 11:50 07/23/18 11:50 07/23/18 11:50 07/23/18 11:50 07/23/18 11:50 - Medications Medications: Current Medications Acetylcysteine (Acetylcysteine 20%) 2 ml INH RQID [facility]ILA Albuterol Sulfate (Albuterol 0.083% Inhal Julieth (2.5 Mg/3 Ml) Ud) 2.5 mg INH RQID [facility]ILA Albuterol/Ipratropium (Duoneb 3 Mg/0.5 Mg (3 Ml) Ud) 3 ml INH RQ6 PRN PRN Reason: Shortness of Breath Last Admin: 07/23/18 04:37 Dose: 3 ml Donepezil HCl (Aricept) 10 mg NG HS [facility] Last Admin: 07/22/18 21:46 Dose: 10 mg Metronidazole (Flagyl 500mg/100ml Ns) 100 mls @ 100 mls/hr IVPB Q8 [facility]; Protocol Last Admin: 07/23/18 11:21 Dose: Not Given Meropenem 500 mg/ Sodium (Chloride) 100 mls @ 100 mls/hr IVPB Q8 [facility]; Protocol Last Admin: 07/23/18 08:15 Dose: 100 mls/hr Ketorolac Tromethamine (Toradol) 30 mg IVP Q6 PRN PRN Reason: Pain, severe (8-10) Last Admin: 07/20/18 10:58 Dose: 30 mg Mirtazapine (Remeron) 30 mg PO HS [facility] Last Admin: 07/22/18 21:45 Dose: 30 mg Ondansetron HCl (Zofran Inj) 4 mg IVP Q6 PRN PRN Reason: Nausea/Vomiting Last Admin: 07/12/18 10:40 Dose: 4 mg Pravastatin Sodium (Pravachol) 20 mg PO HS [facility] Last Admin: 07/22/18 21:45 Dose: 20 mg - Labs Labs: 07/23/18 04:40 07/23/18 04:40 PT 14.9 Seconds (9.8-13.1) H 07/18/18 05:00 INR 1.3 07/18/18 05:00 APTT 25.6 Seconds (25.6-37.1) 07/18/18 05:00 - Additional Findings Additional findings: Constitutional Appears: No Acute Distress Additional comments: awake and alert - Head Exam Head Exam: ATRAUMATIC - Eye Exam Eye Exam: EOMI, PERRL - Neck Exam Neck exam: Positive for: Full Rom - Respiratory Exam Additional comments: breath sounds heard b/l no wheezing slightly decreased at left base - Cardiovascular Exam Cardiovascular Exam: RRR, +S1, +S2 - GI/Abdominal Exam GI & Abdominal Exam: Soft Additional comments: mid lower abdomen surgical site with wound vac in place draining some sserosanguinous fluid no erythema no tenderness soft - Extremities Exam Extremities exam: Positive for: normal inspection except 1+ LE edema B/L - Neurological Exam Neurological exam: AAO x 3 today. Microbiology 07/21/18 20:12 Naris MRSA Culture (Admit) - Final MRSA NOT DETECTED 07/14/18 17:00 Blood-Venous Blood Culture - Final NO GROWTH AFTER 5 DAYS 07/14/18 17:00 Blood-Venous Gram Stain - Final TEST NOT PERFORMED 07/14/18 15:58 Blood-Venous Blood Culture - Final NO GROWTH AFTER 5 DAYS 07/14/18 15:58 Blood-Venous Gram Stain - Final TEST NOT PERFORMED 07/13/18 16:00 Blood-Venous Blood Culture - Final NO GROWTH AFTER 5 DAYS 07/13/18 16:00 Blood-Venous Gram Stain - Final TEST NOT PERFORMED 07/13/18 17:00 Blood-Venous Blood Culture - Final NO GROWTH AFTER 5 DAYS 07/13/18 17:00 Blood-Venous Gram Stain - Final TEST NOT PERFORMED 07/14/18 16:00 Sputum Gram Stain - Final 07/14/18 16:00 Sputum Sputum Culture - Final No growth. 07/13/18 17:21 Urine,Elizondo Urine Culture - Final No Growth (<1,000 CFU/ML) 07/10/18 19:55 Urine Random Urine Culture - Final Gram Negative [place] Assessment and Plan (1) Small bowel obstruction Status: Acute (2) Sepsis Status: Acute - Assessment and Plan (Free Text) Assessment: A/P- 87 year old female with multiple past medical history and s/p past hemicolectomy and reversal of colostomy who was admitted with abd . pain and found to have SBO and is POD #1 s/p Exploratory laparotomy, extenive lysis of adhesions, repair of enterotomies x 2, washout. clinically improved. afebrile mild rise in wbc blood cx- neg x 4 sputum cx- neg repeat urine cx- neg ABD ct and CXR report noted-pleural effusion CT chest report- stable b/l pleural effusion L>R plan- advise to continue empiric broad coverage with meropenem, flagyl.day #9 fluconazole d/c today. completed 9 days. advise 5 more days to complete 14 days of therapy vanco d/c completed 8 days. pt.. may need throracentheiss as per pulm note. wound vac management as per surgical team. All above d/w primary team taking care oft he patient.
--- NOTE | 2018-07-23 17:22 | CP.PCM.PN ---
Subjective - Date & Time of Evaluation Date of Evaluation: 07/23/18 Time of Evaluation: 16:00 - Subjective Subjective: No complaints, comfortable. Objective - Vital Signs/Intake and Output Vital Signs (last 24 hours): Temp Pulse Resp BP Pulse Ox 98.2 F 94 H 18 100/83 94 L 07/23/18 15:54 07/23/18 15:54 07/23/18 15:54 07/23/18 15:54 07/23/18 15:54 - Medications Medications: Current Medications Acetylcysteine (Acetylcysteine 20%) 2 ml INH RQID [facility]A Last Admin: 07/23/18 15:15 Dose: 2 ml Albuterol Sulfate (Albuterol 0.083% Inhal Julieth (2.5 Mg/3 Ml) Ud) 2.5 mg INH RQID LEILA Last Admin: 07/23/18 15:14 Dose: 2.5 mg Albuterol/Ipratropium (Duoneb 3 Mg/0.5 Mg (3 Ml) Ud) 3 ml INH RQ6 PRN PRN Reason: Shortness of Breath Last Admin: 07/23/18 04:37 Dose: 3 ml Donepezil HCl (Aricept) 10 mg NG HS [facility]A Last Admin: 07/22/18 21:46 Dose: 10 mg Metronidazole (Flagyl 500mg/100ml Ns) 100 mls @ 100 mls/hr IVPB Q8 [facility]A; Protoc ol Last Admin: 07/23/18 16:27 Dose: Not Given Meropenem 500 mg/ Sodium (Chloride) 100 mls @ 100 mls/hr IVPB Q8 [facility]; Protocol Last Admin: 07/23/18 16:26 Dose: Not Given Ketorolac Tromethamine (Toradol) 30 mg IVP Q6 PRN PRN Reason: Pain, severe (8-10) Last Admin: 07/20/18 10:58 Dose: 30 mg Mirtazapine (Remeron) 30 mg PO HS [facility] Last Admin: 07/22/18 21:45 Dose: 30 mg Ondansetron HCl (Zofran Inj) 4 mg IVP Q6 PRN PRN Reason: Nausea/Vomiting Last Admin: 07/12/18 10:40 Dose: 4 mg Pravastatin Sodium (Pravachol) 20 mg PO HS [facility] Last Admin: 07/22/18 21:45 Dose: 20 mg - Labs Labs: 07/23/18 04:40 07/23/18 04:40 PT 14.9 Seconds (9.8-13.1) H 07/18/18 05:00 INR 1.3 07/18/18 05:00 APTT 25.6 Seconds (25.6-37.1) 07/18/18 05:00 - Head Exam Head Exam: ATRAUMATIC - Eye Exam Eye Exam: Normal appearance - ENT Exam ENT Exam: Mucous Membranes Dry - Respiratory Exam Respiratory Exam: NORMAL BREATHING PATTERN - Cardiovascular Exam Cardiovascular Exam: +S1, +S2 - GI/Abdominal Exam GI & Abdominal Exam: Normal Bowel Sounds Assessment and Plan (1) Anemia Assessment & Plan: chronic disease H/H fairly stable Status: Acute
[2018-07-23] MEDS: Pravastatin Sodium 20 MG TAB PO SCH (21:17)
[2018-07-24] MEDS: Meropenem 500 MG in Sodium Chloride 0.9% 100 ML IVPB SCH ×4 (01:07→17:13)
[2018-07-24] MEDS: metroNIDAZOLE 500mg/100ml NS 100 ML IVPB SCH ×4 (01:07→17:12)
[2018-07-24 06:00] LABS: HEMOGLOBIN 10.5 g/dL (12.0-16.0); MEAN CELL VOLUME 91.4 fl (81.0-99.0); MEAN CORPUSCULAR HEMOGLOBIN 29.2 pg (27.0-31.0); MEAN CORPUSCULAR HGB CONC 31.9 g/dL (33.0-37.0); RBC 3.6 Mil/uL (3.80-5.20); RED CELL DISTRIBUTION WIDTH 14.8 % (11.5-14.5); WHITE BLOOD COUNT 11.6 K/uL (4.8-10.8)
[2018-07-24 06:39] LABS: ALBUMIN 2.2 g/dL (3.5-5.0); ALT/SGPT 19 U/L (9-52); AST/SGOT 24 U/L (14-36); BLOOD UREA NITROGEN 16 mg/dl (7-17); CALCIUM 8.1 mg/dL (8.4-10.2); GFR NON-AFRICAN AMERICAN > 60
--- NOTE | 2018-07-24 06:51 | CP.PCM.PN ---
Subjective - Date & Time of Evaluation Date of Evaluation: 07/24/18 Time of Evaluation: 06:51 - Subjective Subjective: Patient seen and examined at bedside, no overnights events, no abdominal pain a this time. c/o cough and noted to be unable to expectorate. Patient also denies CP, sob, fever, chills, chest pain, diarrhea or constipation. Having BM and passing gas Working in PT Objective - Vital Signs/Intake and Output Vital Signs (last 24 hours): Temp Pulse Resp BP Pulse Ox 97.2 F L 94 H 18 130/74 96 07/24/18 05:21 07/24/18 05:21 07/24/18 05:21 07/24/18 05:21 07/24/18 05:21 - Medications Medications: Current Medications Acetylcysteine (Acetylcysteine 20%) 2 ml INH RQID [facility]ILA Last Admin: 07/23/18 19:08 Dose: 2 ml Albuterol Sulfate (Albuterol 0.083% Inhal Julieth (2.5 Mg/3 Ml) Ud) 2.5 mg INH RQID LEILA Last Admin: 07/23/18 19:08 Dose: 2.5 mg Albuterol/Ipratropium (Duoneb 3 Mg/0.5 Mg (3 Ml) Ud) 3 ml INH RQ6 PRN PRN Reason: Shortness of Breath Last Admin: 07/23/18 04:37 Dose: 3 ml Donepezil HCl (Aricept) 10 mg NG HS [facility]ILA Last Admin: 07/23/18 21:17 Dose: 10 mg Metronidazole (Flagyl 500mg/100ml Ns) 100 mls @ 100 mls/hr IVPB Q8 [facility]; Protocol Last Admin: 07/24/18 01:07 Dose: Not Given Meropenem 500 mg/ Sodium (Chloride) 100 mls @ 100 mls/hr IVPB Q8 [facility]; Protocol Last Admin: 07/24/18 01:07 Dose: Not Given Ketorolac Tromethamine (Toradol) 30 mg IVP Q6 PRN PRN Reason: Pain, severe (8-10) Last Admin: 07/20/18 10:58 Dose: 30 mg Mirtazapine (Remeron) 30 mg PO HS [facility] Last Admin: 07/23/18 21:17 Dose: 30 mg Ondansetron HCl (Zofran Inj) 4 mg IVP Q6 PRN PRN Reason: Nausea/Vomiting Last Admin: 07/12/18 10:40 Dose: 4 mg Pravastatin Sodium (Pravachol) 20 mg PO HS [facility] Last Admin: 07/23/18 21:17 Dose: 20 mg - Labs Labs: 07/24/18 04:40 07/24/18 04:40 PT 14.9 Seconds (9.8-13.1) H 07/18/18 05:00 INR 1.3 07/18/18 05:00 APTT 25.6 Seconds (25.6-37.1) 07/18/18 05:00 - Constitutional Appears: No Acute Distress - Head Exam Head Exam: NORMAL INSPECTION - Respiratory Exam Respiratory Exam: Decreased Breath Sounds (bibasilar), Rhonchi (bibasilar), NORMAL BREATHING PATTERN. absent: Accessory Muscle Use, Rales, Wheezes - Cardiovascular Exam Cardiovascular Exam: REGULAR RHYTHM, +S1, +S2. absent: Tachycardia - GI/Abdominal Exam GI & Abdominal Exam: Soft, Tenderness (mild tender around wound). absent: Distended Additional comments: Wound vac in place draining appropriately - Extremities Exam Extremities Exam: absent: Calf Tenderness, Pedal Edema - Neurological Exam Neurological Exam: Alert, Awake, Oriented x3 - Skin Skin Exam: Dry, Warm Assessment and Plan - Assessment and Plan (Free Text) Assessment: 87 F who presents with septic shock, acute respiratory failure, elevated lactate, s/p exploratory laparotomy, lysis of adhesion, and repair of enterotomy x2 for SBO POD 12 Plan: Small bowel obstruction/ s/p ex laparotomy POD 12 - General surgery, Dr. Mendez on board - Pain management - continue IVF - Tolerating PO - Wound vac - encouraged incentive spirometry and OOB - PT - continue IV meropenen and flagyl 5 more days per ID, to complete 14 days - d/c vanco and diflucam (9 days completed) Bilateral Pleural effusion - Repeat chest CT: stable pleural effusions, bibasilar atelectasis - Pulmonology consult, recs appreciated - for possible flexible broncho for removal of secretions - afebrile - on NC at 2 lpm Acute OR - likely 2/2 hypotension during surgery or tachycardia during A Fib. - Hemodynamically stable - Echo: preserved left ventricular systolic function. - Cardiology on board, recs appreciated Hypertension - controlled - metoprolol succinated 50 mg ER Hyperlipidemia - resume pravastatin 20 mg po hs GERD - start protonix 40 mg IVP Hiatal hernia - c/w protonix 40 mg IVP Cognitive impairment - aricept Insomnia/anxiety - remeron and aricept DVT prophylaxis - SCDs - Lovenox 40 sc Dispo: MANDEEP Case seen and examined with Dr Ernesto Ramírez PGY 2
[2018-07-24] MEDS: Acetylcysteine 20% Inhal Soln (4ml) INH SCH ×4 (08:33→19:16)
[2018-07-24] MEDS: Albuterol 0.083% Inhal Sol (2.5 mg/3 mL) UD INH SCH ×4 (08:33→19:16)
--- NOTE | 2018-07-24 09:29 | CP.PCM.PN ---
Subjective - Date & Time of Evaluation Date of Evaluation: 07/24/18 Time of Evaluation: : - Subjective Subjective: Patient is unable to cough and expectorate effectively. CT chest shows persistent pleural effusions and compressive atelectasis of the l ower lobes. Will speak with POA regarding flexible bronchoscopy for removal of inspissated secretions. Objective - Vital Signs/Intake and Output Vital Signs (last 24 hours): Temp Pulse Resp BP Pulse Ox 98.2 F 86 18 145/81 97 07/24/18 08:00 07/24/18 08:00 07/24/18 08:00 07/24/18 08:00 07/24/18 08:00 - Medications Medications: Current Medications Acetylcysteine (Acetylcysteine 20%) 2 ml INH RQID [facility]ILA Last Admin: 07/24/18 08:33 Dose: 2 ml Albuterol Sulfate (Albuterol 0.083% Inhal Julieth (2.5 Mg/3 Ml) Ud) 2.5 mg INH RQID [facility]ILA Last Admin: 07/24/18 08:33 Dose: 2.5 mg Albuterol/Ipratropium (Duoneb 3 Mg/0.5 Mg (3 Ml) Ud) 3 ml INH RQ6 PRN PRN Reason: Shortness of Breath Last Admin: 07/23/18 04:37 Dose: 3 ml Donepezil HCl (Aricept) 10 mg NG HS [facility]ILA Last Admin: 07/23/18 21:17 Dose: 10 mg Metronidazole (Flagyl 500mg/100ml Ns) 100 mls @ 100 mls/hr IVPB Q8 [facility]; Protocol Last Admin: 07/24/18 01:07 Dose: Not Given Meropenem 500 mg/ Sodium (Chloride) 100 mls @ 100 mls/hr IVPB Q8 [facility]; Protocol Last Admin: 07/24/18 01:07 Dose: Not Given Ketorolac Tromethamine (Toradol) 30 mg IVP Q6 PRN PRN Reason: Pain, severe (8-10) Last Admin: 07/20/18 10:58 Dose: 30 mg Mirtazapine (Remeron) 30 mg PO HS [facility] Last Admin: 07/23/18 21:17 Dose: 30 mg Ondansetron HCl (Zofran Inj) 4 mg IVP Q6 PRN PRN Reason: Nausea/Vomiting Last Admin: 07/12/18 10:40 Dose: 4 mg Pravastatin Sodium (Pravachol) 20 mg PO HS [facility] Last Admin: 07/23/18 21:17 Dose: 20 mg - Labs Labs: 07/24/18 04:40 07/24/18 04:40 PT 14.9 Seconds (9.8-13.1) H 07/18/18 05:00 INR 1.3 07/18/18 05:00 APTT 25.6 Seconds (25.6-37.1) 07/18/18 05:00 Assessment and Plan (1) Pleural effusion Status: Acute (2) Atelectasis Status: Acute (3) Acute respiratory insufficiency Status: Acute
[2018-07-24] MEDS: Albuterol-Ipratrop 3 mg / 0.5 (3 ml) UD INH PRN (10:03)
--- NOTE | 2018-07-24 12:59 | CP.PCM.PN ---
<Wolfgang Tanner - Last Filed: 07/24/18 15:14> Subjective - Date & Time of Evaluation Date of Evaluation: 07/24/18 Time of Evaluation: 12:57 - Subjective Subjective: General Surgery Note for Dr. Mendez Patient seen and examined at bedside. No acute event overnight. Pain is controlled. Patient denies cp, or SOB. Patient on 4L NC, at 93%. She admits to passing flatus and BMs. She is tolerating diet. Wound vac with negative pressure therapy over surgical site. She has no complaints today. Objective - Vital Signs/Intake and Output Vital Signs (last 24 hours): Temp Pulse Resp BP Pulse Ox 97.4 F L 100 H 18 112/71 97 07/24/18 11:48 07/24/18 11:48 07/24/18 11:48 07/24/18 11:48 07/24/18 11:48 - Medications Medications: Current Medications Acetylcysteine (Acetylcysteine 20%) 2 ml INH RQID LEILA Last Admin: 07/24/18 11:35 Dose: 2 ml Albuterol Sulfate (Albuterol 0.083% Inhal Julieth (2.5 Mg/3 Ml) Ud) 2.5 mg INH RQID [facility]ILA Last Admin: 07/24/18 11:35 Dose: 2.5 mg Albuterol/Ipratropium (Duoneb 3 Mg/0.5 Mg (3 Ml) Ud) 3 ml INH RQ6 PRN PRN Reason: Shortness of Breath Last Admin: 07/24/18 10:03 Dose: 3 ml Donepezil HCl (Aricept) 10 mg NG HS LEILA Last Admin: 07/23/18 21:17 Dose: 10 mg Metronidazole (Flagyl 500mg/100ml Ns) 100 mls @ 100 mls/hr IVPB Q8 [facility]ILA; Protocol Last Admin: 07/24/18 01:07 Dose: Not Given Meropenem 500 mg/ Sodium (Chloride) 100 mls @ 100 mls/hr IVPB Q8 [facility]ILA; Protocol Last Admin: 07/24/18 01:07 Dose: Not Given Ketorolac Tromethamine (Toradol) 30 mg IVP Q6 PRN PRN Reason: Pain, severe (8-10) Last Admin: 07/20/18 10:58 Dose: 30 mg Mirtazapine (Remeron) 30 mg PO HS [facility] Last Admin: 07/23/18 21:17 Dose: 30 mg Ondansetron HCl (Zofran Inj) 4 mg IVP Q6 PRN PRN Reason: Nausea/Vomiting Last Admin: 07/12/18 10:40 Dose: 4 mg Pravastatin Sodium (Pravachol) 20 mg PO HS [facility] Last Admin: 07/23/18 21:17 Dose: 20 mg - Labs Labs: 07/24/18 04:40 07/24/18 04:40 PT 14.9 Seconds (9.8-13.1) H 07/18/18 05:00 INR 1.3 07/18/18 05:00 APTT 25.6 Seconds (25.6-37.1) 07/18/18 05:00 - Constitutional Appears: Well, Non-toxic, No Acute Distress - Head Exam Head Exam: ATRAUMATIC, NORMOCEPHALIC - Eye Exam Eye Exam: Normal appearance - ENT Exam ENT Exam: Mucous Membranes Moist - Cardiovascular Exam Cardiovascular Exam: REGULAR RHYTHM - GI/Abdominal Exam GI & Abdominal Exam: Soft, Normal Bowel Sounds Additional comments: wound vac over surgical site - Extremities Exam Extremities Exam: Normal Capillary Refill - Back Exam Back Exam: absent: CVA tenderness (L), CVA tenderness (R) - Neurological Exam Neurological Exam: Alert, Awake, Oriented x3 - Psychiatric Exam Psychiatric exam: Normal Affect, Normal Mood Assessment and Plan - Assessment and Plan (Free Text) Assessment: 87 F s/p exploratory laparotomy POD#12 Plan: -93% on 4L NC -Replete electrolytes as needed -wound vac change 07/25 -Discharge patient to [facility] on Sunday07/26/18 -PT Case discussed with Dr. Faith, PGY1 <Wilder Bullock - Last Filed: 07/27/18 09:48> Objective - Vital Signs/Intake and Output Vital Signs (last 24 hours): Temp Pulse Resp BP Pulse Ox 97.6 F 85 20 127/66 95 07/27/18 08:12 07/27/18 08:12 07/27/18 08:12 07/27/18 08:12 07/27/18 08:12 - Medications Medications: Current Medications Albuterol Sulfate (Albuterol 0.083% Inhal Julieth (2.5 Mg/3 Ml) Ud) 2.5 mg INH RQID LEILA Last Admin: 07/27/18 08:00 Dose: 2.5 mg Albuterol/Ipratropium (Duoneb 3 Mg/0.5 Mg (3 Ml) Ud) 3 ml INH RQ6 PRN PRN Reason: Shortness of Breath Last Admin: 07/24/18 10:03 Dose: 3 ml Donepezil HCl (Aricept) 10 mg NG HS LEILA Last Admin: 07/26/18 22:33 Dose: 10 mg Meropenem 500 mg/ Sodium (Chloride) 100 mls @ 100 mls/hr IVPB Q8 [facility]ILA; Protocol Last Admin: 07/27/18 09:11 Dose: 100 mls/hr Ketorolac Tromethamine (Toradol) 30 mg IVP Q6 PRN PRN Reason: Pain, severe (8-10) Last Admin: 07/25/18 20:00 Dose: 30 mg Mirtazapine (Remeron) 30 mg PO HS [facility] Last Admin: 07/26/18 22:33 Dose: 30 mg Ondansetron HCl (Zofran Inj) 4 mg IVP Q6 PRN PRN Reason: Nausea/Vomiting Last Admin: 07/12/18 10:40 Dose: 4 mg Pravastatin Sodium (Pravachol) 20 mg PO HS [facility] Last Admin: 07/26/18 22:33 Dose: 20 mg - Labs Labs: 07/27/18 05:19 07/27/18 05:19 PT 14.9 Seconds (9.8-13.1) H 07/18/18 05:00 INR 1.3 07/18/18 05:00 APTT 25.6 Seconds (25.6-37.1) 07/18/18 05:00 Assessment and Plan - Assessment and Plan (Free Text) Plan: All medical record entries made by the resident were at my direction. I have reviewed the chart and agree that the record accurately reflects my personal performance of the history, physical exam, and medical decision making for this patient.
--- NOTE | 2018-07-24 15:07 | PCM.SURG1 ---
Surgeon's Initial Post Op Note - Surgeon's Notes Surgeon: Brien Duque MD Hand Clerical Verifier: NONE Type of Anesthesia: Local, None Pre-Operative Diagnosis: Infection Operative Findings: Fibrin sheath at end of picc. Post-Operative Diagnosis: Infection Operation Performed: New picc placed. 4 fr 32 cm. Tip is in the SVC. Specimen/Specimens Removed: NONE Estimated Blood Loss: EBL {In ML}: 0 Blood Products Given: N/A Drains Used: No Drains Post-Op Condition: Fair Date of Surgery/Procedure: 07/24/18 Time of Surgery/Procedure: 15:06
[2018-07-24] MEDS: Pravastatin Sodium 20 MG TAB PO SCH (21:35)
[2018-07-25] MEDS: Meropenem 500 MG in Sodium Chloride 0.9% 100 ML IVPB SCH ×3 (01:12→17:22)
[2018-07-25] MEDS: metroNIDAZOLE 500mg/100ml NS 100 ML IVPB SCH ×3 (01:14→17:22)
[2018-07-25 05:27] LABS: HEMOGLOBIN 9.8 g/dL (12.0-16.0); MEAN CORPUSCULAR HEMOGLOBIN 29.7 pg (27.0-31.0); MEAN CORPUSCULAR HGB CONC 32.6 g/dL (33.0-37.0); RBC 3.31 Mil/uL (3.80-5.20); RED CELL DISTRIBUTION WIDTH 14.6 % (11.5-14.5)
[2018-07-25 05:37] LABS: ALB/GLOB RATIO 0.9 (1.0-2.1); ALBUMIN 2.2 g/dL (3.5-5.0); ALT/SGPT 31 U/L (9-52); AST/SGOT 26 U/L (14-36); BLOOD UREA NITROGEN 17 mg/dl (7-17); CALCIUM 7.7 mg/dL (8.4-10.2); GFR NON-AFRICAN AMERICAN > 60
[2018-07-25] MEDS ORDERED: Potassium Chloride 20 mEq ER Tab PO ONE (06:53)
[2018-07-25] MEDS ORDERED: Lidocaine 2% Jelly (5 ml) TOP ONE (07:17)
[2018-07-25] MEDS ORDERED: EPINEPHrine 1 mg/ml (1:1000) Inj ONE (07:17)
[2018-07-25] MEDS ORDERED: Lidocaine 1% Inj (20ml) ONE (07:17)
[2018-07-25] MEDS ORDERED: Succinylcholine 200 mg/10 ml Inj IV ONE (07:59)
[2018-07-25] MEDS ORDERED: Etomidate 20 mg/10ml Inj IV ONE (07:59)
[2018-07-25] MEDS ORDERED: Sodium Chloride 0.9% 0 ML IV ONE (07:59)
[2018-07-25] MEDS ORDERED: Propofol 10 mg/ml Inj (20 ML) ONE (07:59)
--- NOTE | 2018-07-25 08:00 | CP.PCM.PN ---
Subjective - Date & Time of Evaluation Date of Evaluation: 07/25/18 Time of Evaluation: 08:00 - Subjective Subjective: Patient seen today, going for bronchoscopy, no overnights events, patient denies CP, sob, fever, chills. Objective - Vital Signs/Intake and Output Vital Signs (last 24 hours): Temp Pulse Resp BP Pulse Ox 98.1 F 85 18 125/75 95 07/25/18 08:00 07/25/18 08:00 07/25/18 08:00 07/25/18 08:00 07/25/18 08:00 - Medications Medications: Current Medications Acetylcysteine (Acetylcysteine 20%) 2 ml INH RQID [facility]ILA Last Admin: 07/24/18 19:16 Dose: 2 ml Albuterol Sulfate (Albuterol 0.083% Inhal Julieth (2.5 Mg/3 Ml) Ud) 2.5 mg INH RQID LEILA Last Admin: 07/24/18 19:16 Dose: 2.5 mg Albuterol/Ipratropium (Duoneb 3 Mg/0.5 Mg (3 Ml) Ud) 3 ml INH RQ6 PRN PRN Reason: Shortness of Breath Last Admin: 07/24/18 10:03 Dose: 3 ml Donepezil HCl (Aricept) 10 mg NG HS LEILA Last Admin: 07/24/18 21:44 Dose: 10 mg Metronidazole (Flagyl 500mg/100ml Ns) 100 mls @ 100 mls/hr IVPB Q8 [facility]IL[facility]; Protocol Last Admin: 07/25/18 01:14 Dose: 100 mls/hr Meropenem 500 mg/ Sodium (Chloride) 100 mls @ 100 mls/hr IVPB Q8 [facility]ILA; Protocol Last Admin: 07/25/18 01:12 Dose: 100 mls/hr Ketorolac Tromethamine (Toradol) 30 mg IVP Q6 PRN PRN Reason: Pain, severe (8-10) Last Admin: 07/24/18 20:03 Dose: 30 mg Mirtazapine (Remeron) 30 mg PO HS [facility] Last Admin: 07/24/18 21:44 Dose: 30 mg Ondansetron HCl (Zofran Inj) 4 mg IVP Q6 PRN PRN Reason: Nausea/Vomiting Last Admin: 07/12/18 10:40 Dose: 4 mg Potassium Chloride (K-Dur 20 Meq Er Tab) 40 meq PO ONCE ONE Stop: 07/25/18 06:54 Pravastatin Sodium (Pravachol) 20 mg PO HS [facility] Last Admin: 07/24/18 21:35 Dose: 20 mg - Labs Labs: 07/25/18 05:17 07/25/18 05:17 PT 14.9 Seconds (9.8-13.1) H 07/18/18 05:00 INR 1.3 07/18/18 05:00 APTT 25.6 Seconds (25.6-37.1) 07/18/18 05:00 - Constitutional Appears: No Acute Distress - Respiratory Exam Respiratory Exam: Decreased Breath Sounds (bibasilar). absent: Accessory Muscle Use - Cardiovascular Exam Cardiovascular Exam: REGULAR RHYTHM, +S1, +S2. absent: Tachycardia - GI/Abdominal Exam GI & Abdominal Exam: Soft, Normal Bowel Sounds. absent: Tenderness - Extremities Exam Additional comments: b/l lower edema 2+ - Neurological Exam Neurological Exam: Awake, Oriented x3 - Skin Skin Exam: Dry, Warm Assessment and Plan - Assessment and Plan (Free Text) Assessment: 87 F who presents with septic shock, acute respiratory failure, elevated lactat e, s/p exploratory laparotomy, lysis of adhesion, and repair of enterotomy x2 for SBO POD 13 Plan: Bilateral Pleural effusion b/l Atelectasis - Repeat chest CT: stable pleural effusions, bibasilar atelectasis - Pulmonology consult, recs appreciated - for flexible broncho this am - on NC at 2 lpm Small bowel obstruction/ s/p ex laparotomy POD 13 - General surgery, Dr. Mendez on board - Pain management - continue IVF - Tolerating PO - Wound vac - encouraged incentive spirometry and OOB - continue IV meropenen and flagyl 4 more days per ID, to complete 14 days - PT Acute TX - likely 2/2 hypotension during surgery or tachycardia during A Fib. - Hemodynamically stable - Echo: preserved left ventricular systolic function. - Cardiology on board, recs appreciated Hypertension - controlled - metoprolol succinated 50 mg ER Hyperlipidemia - resume pravastatin 20 mg po hs GERD - start protonix 40 mg IVP Hiatal hernia - c/w protonix 40 mg IVP Cognitive impairment - aricept Insomnia/anxiety - remeron and aricept DVT prophylaxis - SCDs - Lovenox 40 sc Dispo: MANDEEP Case seen and examined with Dr Ernesto Ramírez PGY 2
[2018-07-25] MEDS: Acetylcysteine 20% Inhal Soln (4ml) INH SCH ×5 (08:11→19:11)
[2018-07-25] MEDS: Albuterol 0.083% Inhal Sol (2.5 mg/3 mL) UD INH SCH ×4 (08:11→19:11)
[2018-07-25] MEDS ORDERED: Lidocaine 2% Jelly (30 ml) ONE (08:15)
[2018-07-25] MEDS ORDERED: Sodium Chloride 0.9% 500 ML IV ONE (08:50)
[2018-07-25] MEDS ORDERED: Sodium Chloride 0.9% 250 ML IV ONE (09:12)
--- NOTE | 2018-07-25 09:37 | CP.PCM.PN ---
<Wolfgang Tanner - Last Filed: 07/25/18 12:08> Subjective - Date & Time of Evaluation Date of Evaluation: 07/25/18 Time of Evaluation: 11:04 - Subjective Subjective: General Surgery Note for Dr. Mendez Patient seen and examined at bedside. No acute event overnight. Pain is controlled. Patient denies cp, or SOB. Patient 95% on 4L NC. She admits to passing flatus and BMs. She is tolerating diet. Wound vac with negative pressure therapy over surgical site, changed today. patient has no complaints today. Patient received PICC yesterday and s/p bronchoscopy today Objective - Vital Signs/Intake and Output Vital Signs (last 24 hours): Temp Pulse Resp BP Pulse Ox 98.1 F 85 18 125/75 95 07/25/18 08:00 07/25/18 08:00 07/25/18 08:00 07/25/18 08:00 07/25/18 08:00 - Medications Medications: Current Medications Acetylcysteine (Acetylcysteine 20%) 2 ml INH RQID [facility] Last Admin: 07/25/18 08:11 Dose: 2 ml Albuterol Sulfate (Albuterol 0.083% Inhal Julieth (2.5 Mg/3 Ml) Ud) 2.5 mg INH RQID [facility] Last Admin: 07/25/18 08:11 Dose: 2.5 mg Albuterol/Ipratropium (Duoneb 3 Mg/0.5 Mg (3 Ml) Ud) 3 ml INH RQ6 PRN PRN Reason: Shortness of Breath Last Admin: 07/24/18 10:03 Dose: 3 ml Donepezil HCl (Aricept) 10 mg NG HS [facility] Last Admin: 07/24/18 21:44 Dose: 10 mg Metronidazole (Flagyl 500mg/100ml Ns) 100 mls @ 100 mls/hr IVPB Q8 [facility]; Protocol Last Admin: 07/25/18 01:14 Dose: 100 mls/hr Meropenem 500 mg/ Sodium (Chloride) 100 mls @ 100 mls/hr IVPB Q8 [facility]; Protocol Last Admin: 07/25/18 01:12 Dose: 100 mls/hr Ketorolac Tromethamine (Toradol) 30 mg IVP Q6 PRN PRN Reason: Pain, severe (8-10) Last Admin: 07/24/18 20:03 Dose: 30 mg Mirtazapine (Remeron) 30 mg PO HS [facility] Last Admin: 07/24/18 21:44 Dose: 30 mg Ondansetron HCl (Zofran Inj) 4 mg IVP Q6 PRN PRN Reason: Nausea/Vomiting Last Admin: 07/12/18 10:40 Dose: 4 mg Pravastatin Sodium (Pravachol) 20 mg PO HS [facility] Last Admin: 07/24/18 21:35 Dose: 20 mg - Labs Labs: 07/25/18 05:17 07/25/18 05:17 PT 14.9 Seconds (9.8-13.1) H 07/18/18 05:00 INR 1.3 07/18/18 05:00 APTT 25.6 Seconds (25.6-37.1) 07/18/18 05:00 - Constitutional Appears: Well, Non-toxic, No Acute Distress - Head Exam Head Exam: ATRAUMATIC, NORMOCEPHALIC - Eye Exam Eye Exam: Normal appearance - ENT Exam ENT Exam: Mucous Membranes Moist - Cardiovascular Exam Cardiovascular Exam: absent: Tachycardia - GI/Abdominal Exam GI & Abdominal Exam: Soft, Normal Bowel Sounds. absent: Distended, Firm, Guarding, Rigid Additional comments: Linear incision measurin cm X 3 cm X 5.5 cm Wound Vac re-applied - Back Exam Back Exam: absent: CVA tenderness (L), CVA tenderness (R) - Neurological Exam Neurological Exam: Alert, Awake - Psychiatric Exam Psychiatric exam: Normal Affect, Normal Mood Assessment and Plan - Assessment and Plan (Free Text) Assessment: 87 F s/p exploratory laparotomy POD#13 Plan: -95% on 4L NC -Replete electrolytes as needed -Wound Vac changed today -Discharge patient to [facility] on Sunday07/26/18 -monitor eating habits, needs adequate nutrition for wound healing -PT Case discussed with Dr. Chapa, PGY1 <Wilder Bullock - Last Filed: 07/27/18 09:47> Objective - Vital Signs/Intake and Output Vital Signs (last 24 hours): Temp Pulse Resp BP Pulse Ox 97.6 F 85 20 127/66 95 07/27/18 08:12 07/27/18 08:12 07/27/18 08:12 07/27/18 08:12 07/27/18 08:12 - Medications Medications: Current Medications Albuterol Sulfate (Albuterol 0.083% Inhal Julieth (2.5 Mg/3 Ml) Ud) 2.5 mg INH RQID [facility] Last Admin: 07/27/18 08:00 Dose: 2.5 mg Albuterol/Ipratropium (Duoneb 3 Mg/0.5 Mg (3 Ml) Ud) 3 ml INH RQ6 PRN PRN Reason: Shortness of Breath Last Admin: 07/24/18 10:03 Dose: 3 ml Donepezil HCl (Aricept) 10 mg NG HS [facility] Last Admin: 07/26/18 22:33 Dose: 10 mg Meropenem 500 mg/ Sodium (Chloride) 100 mls @ 100 mls/hr IVPB Q8 [facility]; Protocol Last Admin: 07/27/18 09:11 Dose: 100 mls/hr Ketorolac Tromethamine (Toradol) 30 mg IVP Q6 PRN PRN Reason: Pain, severe (8-10) Last Admin: 07/25/18 20:00 Dose: 30 mg Mirtazapine (Remeron) 30 mg PO HS [facility] Last Admin: 07/26/18 22:33 Dose: 30 mg Ondansetron HCl (Zofran Inj) 4 mg IVP Q6 PRN PRN Reason: Nausea/Vomiting Last Admin: 07/12/18 10:40 Dose: 4 mg Pravastatin Sodium (Pravachol) 20 mg PO HS [facility] Last Admin: 07/26/18 22:33 Dose: 20 mg - Labs Labs: 07/27/18 05:19 07/27/18 05:19 PT 14.9 Seconds (9.8-13.1) H 07/18/18 05:00 INR 1.3 07/18/18 05:00 APTT 25.6 Seconds (25.6-37.1) 07/18/18 05:00 Assessment and Plan - Assessment and Plan (Free Text) Plan: All medical record entries made by the resident were at my direction. I have reviewed the chart and agree that the record accurately reflects my personal performance of the history, physical exam, and medical decision making for this patient.
--- NOTE | 2018-07-25 10:08 | CP.PCM.PN ---
Subjective - Date & Time of Evaluation Date of Evaluation: 07/25/18 Time of Evaluation: 10:06 - Subjective Subjective: Flexible bronchoscopy done today without difficulty. Photo documentation of patent airways post lavage/suctioning bilaterally. Patient in PACU clinically stable. Objective - Vital Signs/Intake and Output Vital Signs (last 24 hours): Temp Pulse Resp BP Pulse Ox 97.2 F L 82 18 118/54 L 95 07/25/18 09:40 07/25/18 09:40 07/25/18 09:40 07/25/18 09:40 07/25/18 09:40 - Medications Medications: Current Medications Acetylcysteine (Acetylcysteine 20%) 2 ml INH RQID [facility] Last Admin: 07/25/18 08:11 Dose: 2 ml Albuterol Sulfate (Albuterol 0.083% Inhal Julieth (2.5 Mg/3 Ml) Ud) 2.5 mg INH RQID [facility] Last Admin: 07/25/18 08:11 Dose: 2.5 mg Albuterol/Ipratropium (Duoneb 3 Mg/0.5 Mg (3 Ml) Ud) 3 ml INH RQ6 PRN PRN Reason: Shortness of Breath Last Admin: 07/24/18 10:03 Dose: 3 ml Donepezil HCl (Aricept) 10 mg NG HS [facility] Last Admin: 07/24/18 21:44 Dose: 10 mg Metronidazole (Flagyl 500mg/100ml Ns) 100 mls @ 100 mls/hr IVPB Q8 [facility]; Protocol Last Admin: 07/25/18 01:14 Dose: 100 mls/hr Meropenem 500 mg/ Sodium (Chloride) 100 mls @ 100 mls/hr IVPB Q8 [facility]; Protocol Last Admin: 07/25/18 01:12 Dose: 100 mls/hr Ketorolac Tromethamine (Toradol) 30 mg IVP Q6 PRN PRN Reason: Pain, severe (8-10) Last Admin: 07/24/18 20:03 Dose: 30 mg Mirtazapine (Remeron) 30 mg PO HS [facility] Last Admin: 07/24/18 21:44 Dose: 30 mg Ondansetron HCl (Zofran Inj) 4 mg IVP Q6 PRN PRN Reason: Nausea/Vomiting Last Admin: 07/12/18 10:40 Dose: 4 mg Pravastatin Sodium (Pravachol) 20 mg PO HS [facility] Last Admin: 07/24/18 21:35 Dose: 20 mg - Labs Labs: 07/25/18 05:17 07/25/18 05:17 PT 14.9 Seconds (9.8-13.1) H 07/18/18 05:00 INR 1.3 07/18/18 05:00 APTT 25.6 Seconds (25.6-37.1) 07/18/18 05:00 Assessment and Plan (1) Pleural effusion Status: Acute (2) Atelectasis Status: Acute (3) Acute respiratory insufficiency Status: Acute
--- NOTE | 2018-07-25 11:36 | RAD ---
Date of service: 07/25/2018 HISTORY: post bronchoscopy COMPARISON: Frontal chest radiograph 07/20/2018. TECHNIQUE: 1 view obtained. FINDINGS: LUNGS: Right PICC slightly withdrawn now terminating at the mid to distal SVC rather than cavoatrial junction. No definite right-sided infiltrate. Elevated left hemidiaphragm reiterated with underlying left basilar atelectasis or infiltrate not excluded. PLEURA: Trace bilateral pleural effusions may blunt the bilateral costophrenic sulci once again. No large interval pleural effusion appreciable or pneumothorax bilaterally. CARDIOVASCULAR: Calcific atherosclerotic changes are seen related to the thoracic aorta. Cardiac size remains obscured by the elevated left hemidiaphragm. Borderline pulmonary vascular congestion. OSSEOUS STRUCTURES: No significant abnormalities. VISUALIZED UPPER ABDOMEN: Normal. OTHER FINDINGS: None. IMPRESSION: Improved pulmonary vascular pattern is now borderline in overall severity. No large infiltrate identified or prominent pleural effusion although trace bilateral pleural effusions are likely present with limited left basilar atelectasis favored over infiltrate. Right PICC slightly withdrawn but remains in the central circulation nevertheless.
[2018-07-25] MEDS: Pravastatin Sodium 20 MG TAB PO SCH (21:31)
[2018-07-26] MEDS: metroNIDAZOLE 500mg/100ml NS 100 ML IVPB SCH ×3 (00:57→17:17)
[2018-07-26 05:51] LABS: HEMOGLOBIN 9.2 g/dL (12.0-16.0); MEAN CELL VOLUME 91.3 fl (81.0-99.0); MEAN CORPUSCULAR HEMOGLOBIN 30.6 pg (27.0-31.0); MEAN CORPUSCULAR HGB CONC 33.5 g/dL (33.0-37.0); RED CELL DISTRIBUTION WIDTH 14.7 % (11.5-14.5)
[2018-07-26 05:56] LABS: ALBUMIN 2.1 g/dL (3.5-5.0); ALT/SGPT 33 U/L (9-52); AST/SGOT 23 U/L (14-36); BLOOD UREA NITROGEN 16 mg/dl (7-17); CALCIUM 7.8 mg/dL (8.4-10.2); GFR NON-AFRICAN AMERICAN > 60
--- NOTE | 2018-07-26 08:07 | CP.PCM.PN ---
Subjective - Date & Time of Evaluation Date of Evaluation: 07/26/18 Time of Evaluation: 08:07 - Subjective Subjective: Patient seen and examined this morning, no acute overnight events, she reports feeling better but occasional cough with minimal loose sputum. Mild abdominal discomfort around wound. Afebrile Objective - Vital Signs/Intake and Output Vital Signs (last 24 hours): Temp Pulse Resp BP Pulse Ox 97.6 F 81 18 145/81 98 07/26/18 07:57 07/26/18 07:57 07/26/18 07:57 07/26/18 07:57 07/26/18 07:57 - Medications Medications: Current Medications Acetylcysteine (Acetylcysteine 20%) 2 ml INH RQID LEILA Last Admin: 07/25/18 19:11 Dose: 2 ml Albuterol Sulfate (Albuterol 0.083% Inhal Julieth (2.5 Mg/3 Ml) Ud) 2.5 mg INH RQID LEILA Last Admin: 07/25/18 19:11 Dose: 2.5 mg Albuterol/Ipratropium (Duoneb 3 Mg/0.5 Mg (3 Ml) Ud) 3 ml INH RQ6 PRN PRN Reason: Shortness of Breath Last Admin: 07/24/18 10:03 Dose: 3 ml Donepezil HCl (Aricept) 10 mg NG HS LEILA Last Admin: 07/25/18 21:31 Dose: 10 mg Metronidazole (Flagyl 500mg/100ml Ns) 100 mls @ 100 mls/hr IVPB Q8 LEILA; Protocol Last Admin: 07/26/18 00:57 Dose: 100 mls/hr Meropenem 500 mg/ Sodium (Chloride) 100 mls @ 100 mls/hr IVPB Q8 LEILA; Protocol Last Admin: 07/26/18 00:00 Dose: 100 mls/hr Ketorolac Tromethamine (Toradol) 30 mg IVP Q6 PRN PRN Reason: Pain, severe (8-10) Last Admin: 07/25/18 20:00 Dose: 30 mg Mirtazapine (Remeron) 30 mg PO HS LEILA Last Admin: 07/25/18 21:31 Dose: 30 mg Ondansetron HCl (Zofran Inj) 4 mg IVP Q6 PRN PRN Reason: Nausea/Vomiting Last Admin: 07/12/18 10:40 Dose: 4 mg Pravastatin Sodium (Pravachol) 20 mg PO HS LEILA Last Admin: 07/25/18 21:31 Dose: 20 mg - Labs Labs: 07/26/18 04:55 07/26/18 04:55 PT 14.9 Seconds (9.8-13.1) H 07/18/18 05:00 INR 1.3 07/18/18 05:00 APTT 25.6 Seconds (25.6-37.1) 07/18/18 05:00 - Constitutional Appears: No Acute Distress - Head Exam Head Exam: NORMAL INSPECTION - Respiratory Exam Respiratory Exam: Decreased Breath Sounds (bibasilar), NORMAL BREATHING PATTERN. absent: Rales, Rhonchi, Wheezes - Cardiovascular Exam Cardiovascular Exam: REGULAR RHYTHM, +S1, +S2. absent: Tachycardia - GI/Abdominal Exam GI & Abdominal Exam: Soft, Tenderness (perincisional, wound vac in place, draining appropriately, no bruises, induration noted), Normal Bowel Sounds. absent: Distended - Extremities Exam Additional comments: generalized b/l lower edema 3+ - Neurological Exam Neurological Exam: Alert, Awake - Skin Skin Exam: Dry, Warm Assessment and Plan - Assessment and Plan (Free Text) Assessment: 87 F who presents with septic shock, acute respiratory failure, elevated lactate, s/p exploratory laparotomy, lysis of adhesion, and repair of enterotomy x2 for SBO POD 14 Plan: Bilateral Pleural effusion b/l Atelectasis - Repeat chest CT: stable pleural effusions, bibasilar atelectasis - Pulmonology consult, recs appreciated - flexible broncho yesterday - f/u cultures - on NC at 2 lpm - respiratory therapy - Encouraged PT and OOB - continue IS Small bowel obstruction/ s/p ex laparotomy POD 14 - General surgery, Dr. Mendez on board - Pain management - Tolerating PO - Wound vac - encouraged incentive spirometry and OOB - continue IV meropenen and flagyl 3 more days per ID, to complete 14 days - PT Acute NC - 2/2 hypotension during surgery or tachycardia during A Fib. - Hemodynamically stable - Echo: preserved left ventricular systolic function. - Cardiology consulted Hypertension - controlled - metoprolol succinated 50 mg ER Hyperlipidemia - resume pravastatin 20 mg po hs GERD - protonix 40 mg IVP Hiatal hernia - c/w protonix 40 mg IVP Cognitive impairment - aricept Insomnia/anxiety - remeron and aricept DVT prophylaxis - SCDs - Lovenox 40 sc Dispo: MANDEEP Case seen and examined with Dr Ernesto Ramírez PGY 2
[2018-07-26] MEDS: Acetylcysteine 20% Inhal Soln (4ml) INH SCH (08:17)
[2018-07-26] MEDS: Albuterol 0.083% Inhal Sol (2.5 mg/3 mL) UD INH SCH ×4 (08:17→19:29)
--- NOTE | 2018-07-26 09:08 | CP.PCM.PN ---
<Wolfgang Tanner - Last Filed: 07/27/18 09:10> Subjective - Date & Time of Evaluation Date of Evaluation: 07/26/18 Time of Evaluation: 09:05 - Subjective Subjective: General Surgery Note for Dr. Mendez Patient seen and examined at bedside. No acute event overnight. Pain is controlled. Patient denies cp, or SOB. She admits to passing flatus and having BMs. She is tolerating diet. Wound vac with negative pressure therapy over surgical site, changed yesterday. patient has no complaints today. Patient received PICC lineand s/p bronchoscopy from yesterday Objective - Vital Signs/Intake and Output Vital Signs (last 24 hours): Temp Pulse Resp BP Pulse Ox 97.6 F 81 18 145/81 98 07/26/18 07:57 07/26/18 07:57 07/26/18 07:57 07/26/18 07:57 07/26/18 07:57 - Medications Medications: Current Medications Acetylcysteine (Acetylcysteine 20%) 2 ml INH RQID LEILA Last Admin: 07/26/18 08:17 Dose: 2 ml Albuterol Sulfate (Albuterol 0.083% Inhal Julieth (2.5 Mg/3 Ml) Ud) 2.5 mg INH RQID LEILA Last Admin: 07/26/18 08:17 Dose: 2.5 mg Albuterol/Ipratropium (Duoneb 3 Mg/0.5 Mg (3 Ml) Ud) 3 ml INH RQ6 PRN PRN Reason: Shortness of Breath Last Admin: 07/24/18 10:03 Dose: 3 ml Donepezil HCl (Aricept) 10 mg NG HS LEILA Last Admin: 07/25/18 21:31 Dose: 10 mg Metronidazole (Flagyl 500mg/100ml Ns) 100 mls @ 100 mls/hr IVPB Q8 LEILA; Protocol Last Admin: 07/26/18 00:57 Dose: 100 mls/hr Meropenem 500 mg/ Sodium (Chloride) 100 mls @ 100 mls/hr IVPB Q8 LEILA; Protocol Last Admin: 07/26/18 00:00 Dose: 100 mls/hr Ketorolac Tromethamine (Toradol) 30 mg IVP Q6 PRN PRN Reason: Pain, severe (8-10) Last Admin: 07/25/18 20:00 Dose: 30 mg Mirtazapine (Remeron) 30 mg PO HS LEILA Last Admin: 07/25/18 21:31 Dose: 30 mg Ondansetron HCl (Zofran Inj) 4 mg IVP Q6 PRN PRN Reason: Nausea/Vomiting Last Admin: 07/12/18 10:40 Dose: 4 mg Pravastatin Sodium (Pravachol) 20 mg PO HS [facility] Last Admin: 07/25/18 21:31 Dose: 20 mg - Labs Labs: 07/26/18 04:55 07/26/18 04:55 PT 14.9 Seconds (9.8-13.1) H 07/18/18 05:00 INR 1.3 07/18/18 05:00 APTT 25.6 Seconds (25.6-37.1) 07/18/18 05:00 - Constitutional Appears: Well, Non-toxic, No Acute Distress - Head Exam Head Exam: ATRAUMATIC, NORMOCEPHALIC - Eye Exam Eye Exam: Normal appearance - ENT Exam ENT Exam: Mucous Membranes Moist - Respiratory Exam Respiratory Exam: Clear to Ausculation Bilateral, NORMAL BREATHING PATTERN. absent: Accessory Muscle Use, Respiratory Distress - GI/Abdominal Exam GI & Abdominal Exam: Soft, Tenderness, Normal Bowel Sounds. absent: Distended, Firm, Guarding, Rigid Additional comments: Incision with wound vac in place - Neurological Exam Neurological Exam: Alert, Awake - Psychiatric Exam Psychiatric exam: Normal Affect, Normal Mood Assessment and Plan - Assessment and Plan (Free Text) Assessment: 87 F s/p exploratory laparotomy POD#14 Plan: -Replete electrolytes as needed -Wound Vac changed yesterday 07/25/18 -Discharge patient when fully stable from medicine -monitor eating habits, needs adequate nutrition for wound healing -PT Case discussed with Dr. Chapa, PGY1 <Wilder Bullock - Last Filed: 07/27/18 09:48> Objective - Vital Signs/Intake and Output Vital Signs (last 24 hours): Temp Pulse Resp BP Pulse Ox 97.6 F 85 20 127/66 95 07/27/18 08:12 07/27/18 08:12 07/27/18 08:12 07/27/18 08:12 07/27/18 08:12 - Medications Medications: Current Medications Albuterol Sulfate (Albuterol 0.083% Inhal Julieth (2.5 Mg/3 Ml) Ud) 2.5 mg INH RQID LEILA Last Admin: 07/27/18 08:00 Dose: 2.5 mg Albuterol/Ipratropium (Duoneb 3 Mg/0.5 Mg (3 Ml) Ud) 3 ml INH RQ6 PRN PRN Reason: Shortness of Breath Last Admin: 07/24/18 10:03 Dose: 3 ml Donepezil HCl (Aricept) 10 mg NG HS LEILA Last Admin: 07/26/18 22:33 Dose: 10 mg Meropenem 500 mg/ Sodium (Chloride) 100 mls @ 100 mls/hr IVPB Q8 LEILA; Protocol Last Admin: 07/27/18 09:11 Dose: 100 mls/hr Ketorolac Tromethamine (Toradol) 30 mg IVP Q6 PRN PRN Reason: Pain, severe (8-10) Last Admin: 07/25/18 20:00 Dose: 30 mg Mirtazapine (Remeron) 30 mg PO HS LEILA Last Admin: 07/26/18 22:33 Dose: 30 mg Ondansetron HCl (Zofran Inj) 4 mg IVP Q6 PRN PRN Reason: Nausea/Vomiting Last Admin: 07/12/18 10:40 Dose: 4 mg Pravastatin Sodium (Pravachol) 20 mg PO HS LEILA Last Admin: 07/26/18 22:33 Dose: 20 mg - Labs Labs: 07/27/18 05:19 07/27/18 05:19 PT 14.9 Seconds (9.8-13.1) H 07/18/18 05:00 INR 1.3 07/18/18 05:00 APTT 25.6 Seconds (25.6-37.1) 07/18/18 05:00 Assessment and Plan - Assessment and Plan (Free Text) Plan: All medical record entries made by the resident were at my direction. I have rev iewed the chart and agree that the record accurately reflects my personal performance of the history, physical exam, and medical decision making for this patient.
[2018-07-26] MEDS: Meropenem 500 MG in Sodium Chloride 0.9% 100 ML IVPB SCH ×3 (10:14→18:20)
--- NOTE | 2018-07-26 10:26 | CP.PCM.PN ---
Subjective - Date & Time of Evaluation Date of Evaluation: 07/26/18 Time of Evaluation: 10:26 - Subjective Subjective: ID Note- Pt. seen and examined today. pt. remains afebrile. no new events overnight. she did have her bronchoscopy done by machine feed operator. Objective - Vital Signs/Intake and Output Vital Signs (last 24 hours): Temp Pulse Resp BP Pulse Ox 97.6 F 81 18 145/81 98 07/26/18 07:57 07/26/18 07:57 07/26/18 07:57 07/26/18 07:57 07/26/18 07:57 - Medications Medications: Current Medications Albuterol Sulfate (Albuterol 0.083% Inhal Julieth (2.5 Mg/3 Ml) Ud) 2.5 mg INH RQID LEILA Last Admin: 07/26/18 08:17 Dose: 2.5 mg Albuterol/Ipratropium (Duoneb 3 Mg/0.5 Mg (3 Ml) Ud) 3 ml INH RQ6 PRN PRN Reason: Shortness of Breath Last Admin: 07/24/18 10:03 Dose: 3 ml Donepezil HCl (Aricept) 10 mg NG HS LEILA Last Admin: 07/25/18 21:31 Dose: 10 mg Metronidazole (Flagyl 500mg/100ml Ns) 100 mls @ 100 mls/hr IVPB Q8 LEILA; Protocol Last Admin: 07/26/18 09:08 Dose: 100 mls/hr Meropenem 500 mg/ Sodium (Chloride) 100 mls @ 100 mls/hr IVPB Q8 LEILA; Protocol Last Admin: 07/26/18 10:14 Dose: 100 mls/hr Ketorolac Tromethamine (Toradol) 30 mg IVP Q6 PRN PRN Reason: Pain, severe (8-10) Last Admin: 07/25/18 20:00 Dose: 30 mg Mirtazapine (Remeron) 30 mg PO HS LEILA Last Admin: 07/25/18 21:31 Dose: 30 mg Ondansetron HCl (Zofran Inj) 4 mg IVP Q6 PRN PRN Reason: Nausea/Vomiting Last Admin: 07/12/18 10:40 Dose: 4 mg Pravastatin Sodium (Pravachol) 20 mg PO HS LEILA Last Admin: 07/25/18 21:31 Dose: 20 mg - Labs Labs: - Additional Findings Additional findings: Constitutional Appears: No Acute Distress Additional comments: awake and alert - Head Exam Head Exam: ATRAUMATIC - Eye Exam Eye Exam: EOMI, PERRL - Neck Exam Neck exam: Positive for: Full Rom - Respiratory Exam Additional comments: breath sounds heard b/l no wheezing slightly decreased at left base - Cardiovascular Exam Cardiovascular Exam: RRR, +S1, +S2 - GI/Abdominal Exam GI & Abdominal Exam: Soft Additional comments: mid lower abdomen surgical site with wound vac in place draining minimal serosanguinous fluid no erythema no tenderness soft - Extremities Exam Extremities exam: Positive for: normal inspection except 1+ LE edema B/L - Neurological Exam Neurological exam: AAO x 3 today. Laboratory Results - last 72 hr 07/24/18 07/24/18 07/25/18 04:40 04:40 05:17 WBC 11.6 H 9.0 RBC 3.60 L 3.31 L Hgb 10.5 L 9.8 L Hct 32.9 L 30.1 L MCV 91.4 91.0 MCH 29.2 29.7 MCHC 31.9 L 32.6 L RDW 14.8 H 14.6 H Plt Count 373 341 Sodium 136 Potassium 3.9 Chloride 104 Carbon Dioxide 29 Anion Gap 7 L BUN 16 Creatinine 0.5 L Est GFR ( Amer) > 60 Est GFR (Non-Af Amer) > 60 Random Glucose 83 Calcium 8.1 L Total Bilirubin 0.3 AST 24 ALT 19 Alkaline Phosphatase 66 Total Protein 4.5 L Albumin 2.2 L Globulin 2.3 Albumin/Globulin Ratio 1.0 07/25/18 07/26/18 07/26/18 05:17 04:55 04:55 WBC 7.0 RBC 3.00 L Hgb 9.2 L Hct 27.4 L MCV 91.3 MCH 30.6 MCHC 33.5 RDW 14.7 H Plt Count 338 Sodium 136 136 Potassium 3.4 L 3.8 Chloride 101 105 Carbon Dioxide 31 H 28 Anion Gap 7 L 7 L BUN 17 16 Creatinine 0.6 L 0.5 L Est GFR ( Amer) > 60 > 60 Est GFR (Non-Af Amer) > 60 > 60 Random Glucose 79 73 Calcium 7.7 L 7.8 L Total Bilirubin 0.3 0.3 AST 26 23 ALT 31 33 Alkaline Phosphatase 52 46 Total Protein 4.5 L 4.3 L Albumin 2.2 L 2.1 L Globulin 2.3 2.2 Albumin/Globulin Ratio 0.9 L 1.0 Microbiology 07/21/18 20:12 Naris MRSA Culture (Admit) - Final MRSA NOT DETECTED 07/14/18 17:00 Blood-Venous Blood Culture - Final NO GROWTH AFTER 5 DAYS 07/14/18 17:00 Blood-Venous Gram Stain - Final TEST NOT PERFORMED 07/14/18 15:58 Blood-Venous Blood Culture - Final NO GROWTH AFTER 5 DAYS 07/14/18 15:58 Blood-Venous Gram Stain - Final TEST NOT PERFORMED 07/13/18 16:00 Blood-Venous Blood Culture - Final NO GROWTH AFTER 5 DAYS 07/13/18 16:00 Blood-Venous Gram Stain - Final TEST NOT PERFORMED 07/13/18 17:00 Blood-Venous Blood Culture - Final NO GROWTH AFTER 5 DAYS 07/13/18 17:00 Blood-Venous Gram Stain - Final TEST NOT PERFORMED 07/14/18 16:00 Sputum Gram Stain - Final 07/14/18 16:00 Sputum Sputum Culture - Final No growth. 07/13/18 17:21 Urine,Elizondo Urine Culture - Final No Growth (<1,000 CFU/ML) 07/10/18 19:55 Urine Random Urine Culture - Final Gram Negative [place] Accession No. : [id number] Patient Name / ID : ROLANDO DIAZ / [id number] Exam Date : 07/25/2018 09:35:53 ( Approved ) Study Comment : Sex / Age : F / 87Y Creator : Tirso Rowan MD Dictator : Tirso Rowan MD Switcher : Weighter : Tirso Roawn MD Approver2 : Report Date : 07/25/2018 11:32:53 My Comment : Date of service: 07/25/2018 HISTORY: post bronchoscopy COMPARISON: Frontal chest radiograph 07/20/2018. TECHNIQUE: 1 view obtained. FINDINGS: LUNGS: Right PICC slightly withdrawn now terminating at the mid to distal SVC rather than cavoatrial junction. No definite right-sided infiltrate. Elevated left hemidiaphragm reiterated with underlying left basilar atelectasis or infiltrate not excluded. PLEURA: Trace bilateral pleural effusions may blunt the bilateral costophrenic sulci once again. No large interval pleural effusion appreciable or pneumothorax bilaterally. CARDIOVASCULAR: Calcific atherosclerotic changes are seen related to the thoracic aorta. Cardiac size remains obscured by the elevated left hemidiaphragm. Borderline pulmonary vascular congestion. OSSEOUS STRUCTURES: No significant abnormalities. VISUALIZED UPPER ABDOMEN: Normal. OTHER FINDINGS: None. IMPRESSION: Improved pulmonary vascular pattern is now borderline in overall severity. No large infiltrate identified or prominent pleural effusion although trace bilater al pleural effusions are likely present with limited left basilar atelectasis favored over infiltrate. Right PICC slightly withdrawn but remains in the central circulation nevertheless Assessment and Plan (1) Small bowel obstruction Status: Acute (2) Sepsis Status: Acute - Assessment and Plan (Free Text) Assessment: A/P- 87 year old female with multiple past medical history and s/p past hemicolectomy and reversal of colostomy who was admitted with abd . pain and found to have SBO and is POD #1 s/p Exploratory laparotomy, extenive lysis of adhesions, repair of enterotomies x 2, washout. clinically improved. afebrile leukocytosis has resolved cxr improved s/p bronch blood cx- neg x 4 sputum cx- neg repeat urine cx- neg plan- advise to continue empiric broad coverage with meropenem, flagyl.day #12 fluconazole d/c today. completed 9 days. advise 2 more days to complete 14 days of therapy vanco d/c completed 8 days. wound vac management as per surgical team. All above d/w primary team taking care oft he patient.
--- NOTE | 2018-07-26 11:55 | VASCULAR ---
PROCEDURE: Date of procedure: 07/24/2018 Procedure: 1. Placement of a right arm PICC with ultrasound and fluoroscopic guidance, CPT 09554 2. PICC tip confirmation with spot radiograph and is in the superior vena cava Medications: none Total Fluoro time: 5.3 Seconds Radiation: 0.53 MGy EBL: 2 cc HISTORY: Infection requiring long-term IV antibiotics TECHNIQUE: Following informed consent and procedure time-out, the patient was placed supine on the interventional table and the right arm prepped and draped in the usual sterile fashion. The existing PICC line was removed the guidewire. The length of a new single-lumen 4 [place] PICC was trimmed to 32 centimeters and advanced through a peel-away sheath. The PICC was position with tip of PICC confirm a spot radiograph the superior vena cava. The PICC was secured to the patient's skin. The PICC was flushed. A biopatch and sterile dressing was applied. IMPRESSION: Placement of a new single-lumen 4 Latvian PICC trimmed to 32 centimeters via right basilic vein. The tip of the PICC is confirmed with spot radiograph and is in the superior vena cava.
[2018-07-26] MEDS: Pravastatin Sodium 20 MG TAB PO SCH (22:33)
[2018-07-27] MEDS: metroNIDAZOLE 500mg/100ml NS 100 ML IVPB SCH (00:45)
[2018-07-27] MEDS: Meropenem 500 MG in Sodium Chloride 0.9% 100 ML IVPB SCH ×3 (00:45→17:33)
[2018-07-27 06:18] LABS: HEMOGLOBIN 9.3 g/dL (12.0-16.0); MEAN CELL VOLUME 91.4 fl (81.0-99.0); MEAN CORPUSCULAR HEMOGLOBIN 30.7 pg (27.0-31.0); MEAN CORPUSCULAR HGB CONC 33.6 g/dL (33.0-37.0); RBC 3.02 Mil/uL (3.80-5.20); RED CELL DISTRIBUTION WIDTH 14.8 % (11.5-14.5); WHITE BLOOD COUNT 6.5 K/uL (4.8-10.8)
[2018-07-27 06:42] LABS: ALB/GLOB RATIO 0.9 (1.0-2.1); ALBUMIN 2.1 g/dL (3.5-5.0); ALT/SGPT 21 U/L (9-52); AST/SGOT 28 U/L (14-36); BLOOD UREA NITROGEN 14 mg/dl (7-17); GFR NON-AFRICAN AMERICAN > 60
--- NOTE | 2018-07-27 07:48 | CP.PCM.PN ---
<Lauri Hughes - Last Filed: 07/27/18 10:06> Subjective - Date & Time of Evaluation Date of Evaluation: 07/27/18 Time of Evaluation: 07:48 - Subjective Subjective: Patient seen and examined this morning, no acute overnight events, reports feeling better no cough last night. Denies abd pain, nausea or vomiting, tolerating PO w/o difficulty. Afebrile Working on PT. Objective - Vital Signs/Intake and Output Vital Signs (last 24 hours): Temp Pulse Resp BP Pulse Ox 97.5 F L 88 18 128/72 99 07/27/18 04:53 07/27/18 04:53 07/27/18 04:53 07/27/18 04:53 07/27/18 04:53 - Medications Medications: Current Medications Albuterol Sulfate (Albuterol 0.083% Inhal Julieth (2.5 Mg/3 Ml) Ud) 2.5 mg INH RQID LEILA Last Admin: 07/26/18 19:29 Dose: 2.5 mg Albuterol/Ipratropium (Duoneb 3 Mg/0.5 Mg (3 Ml) Ud) 3 ml INH RQ6 PRN PRN Reason: Shortness of Breath Last Admin: 07/24/18 10:03 Dose: 3 ml Donepezil HCl (Aricept) 10 mg NG HS LEILA Last Admin: 07/26/18 22:33 Dose: 10 mg Meropenem 500 mg/ Sodium (Chloride) 100 mls @ 100 mls/hr IVPB Q8 LEILA; Protocol Last Admin: 07/27/18 00:45 Dose: 100 mls/hr Ketorolac Tromethamine (Toradol) 30 mg IVP Q6 PRN PRN Reason: Pain, severe (8-10) Last Admin: 07/25/18 20:00 Dose: 30 mg Mirtazapine (Remeron) 30 mg PO HS LEILA Last Admin: 07/26/18 22:33 Dose: 30 mg Ondansetron HCl (Zofran Inj) 4 mg IVP Q6 PRN PRN Reason: Nausea/Vomiting Last Admin: 07/12/18 10:40 Dose: 4 mg Pravastatin Sodium (Pravachol) 20 mg PO HS LEILA Last Admin: 07/26/18 22:33 Dose: 20 mg - Labs Labs: 07/27/18 05:19 07/27/18 05:19 PT 14.9 Seconds (9.8-13.1) H 07/18/18 05:00 INR 1.3 07/18/18 05:00 APTT 25.6 Seconds (25.6-37.1) 07/18/18 05:00 - Constitutional Appears: No Acute Distress - Head Exam Head Exam: NORMAL INSPECTION - Respiratory Exam Respiratory Exam: Decreased Breath Sounds (bibasilar), Clear to Ausculation Bilateral. absent: Accessory Muscle Use - Cardiovascular Exam Cardiovascular Exam: REGULAR RHYTHM, +S1, +S2. absent: Tachycardia - GI/Abdominal Exam GI & Abdominal Exam: Soft, Normal Bowel Sounds. absent: Distended, Tenderness Additional comments: Wound dressing noted clean, dry, no oozing or signs of infection, wound vac in place drain small amount of serosanguineous fluid - Extremities Exam Extremities Exam: absent: Calf Tenderness Additional comments: B/L lower extremities edema, improving - Neurological Exam Neurological Exam: Alert, Awake, Oriented x3 - Skin Skin Exam: Dry, Warm Assessment and Plan - Assessment and Plan (Free Text) Assessment: 87 F who presents with septic shock, acute respiratory failure, elevated lactate, s/p exploratory laparotomy, lysis of adhesion, and repair of enterotomy x2 for SBO POD 15 Plan: Bilateral Pleural effusion b/l Atelectasis - Repeat chest CT: stable pleural effusions, bibasilar atelectasis - Pulmonology consult, recs appreciated - s/p flexible broncho 07/25/18 - f/u cultures - on NC at 2 lpm - respiratory therapy - Encouraged PT and OOB - continue IS Small bowel obstruction/ s/p ex laparotomy POD 15 - General surgery, Dr. Mendez on board - Pain management - Tolerating PO - Wound vac - encouraged incentive spirometry and OOB - continue IV meropenen and flagyl 2 more days per ID, to complete 14 days - PT Acute TN - 2/2 hypotension during surgery or tachycardia during A Fib. - Hemodynamically stable - Echo: preserved left ventricular systolic function. - Cardiology consulted Hypertension - controlled - metoprolol succinated 50 mg ER Hyperlipidemia - resume pravastatin 20 mg po hs GERD - protonix 40 mg IVP Hiatal hernia - c/w protonix 40 mg IVP Cognitive impairment - aricept Insomnia/anxiety - remeron and aricept DVT prophylaxis - SCDs - Lovenox 40 sc Dispo: MANDEEP Case seen and examined with Dr Chapo Ramírez PGY 2 <Demario Cowan D - Last Filed: 07/27/18 11:08> Objective - Vital Signs/Intake and Output Vital Signs (last 24 hours): Temp Pulse Resp BP Pulse Ox 97.6 F 85 20 127/66 95 07/27/18 08:12 07/27/18 08:12 07/27/18 08:12 07/27/18 08:12 07/27/18 08:12 - Medications Medications: Current Medications Albuterol Sulfate (Albuterol 0.083% Inhal Julieth (2.5 Mg/3 Ml) Ud) 2.5 mg INH RQID LEILA Last Admin: 07/27/18 08:00 Dose: 2.5 mg Albuterol/Ipratropium (Duoneb 3 Mg/0.5 Mg (3 Ml) Ud) 3 ml INH RQ6 PRN PRN Reason: Shortness of Breath Last Admin: 07/24/18 10:03 Dose: 3 ml Donepezil HCl (Aricept) 10 mg NG HS LEILA Last Admin: 07/26/18 22:33 Dose: 10 mg Meropenem 500 mg/ Sodium (Chloride) 100 mls @ 100 mls/hr IVPB Q8 LEILA; Protocol Last Admin: 07/27/18 09:11 Dose: 100 mls/hr Ketorolac Tromethamine (Toradol) 30 mg IVP Q6 PRN PRN Reason: Pain, severe (8-10) Last Admin: 07/25/18 20:00 Dose: 30 mg Mirtazapine (Remeron) 30 mg PO HS LEILA Last Admin: 07/26/18 22:33 Dose: 30 mg Ondansetron HCl (Zofran Inj) 4 mg IVP Q6 PRN PRN Reason: Nausea/Vomiting Last Admin: 07/12/18 10:40 Dose: 4 mg Potassium Chloride (K-Dur 20 Meq Er Tab) 20 meq PO DAILY LEILA Last Admin: 07/27/18 10:04 Dose: 20 meq Pravastatin Sodium (Pravachol) 20 mg PO HS LEILA Last Admin: 07/26/18 22:33 Dose: 20 mg - Labs Labs: 07/27/18 05:19 07/27/18 05:19 PT 14.9 Seconds (9.8-13.1) H 07/18/18 05:00 INR 1.3 07/18/18 05:00 APTT 25.6 Seconds (25.6-37.1) 07/18/18 05:00 Attending/Attestation - Attestation I have personally seen and examined this patient.: Yes I have fully participated in the care of the patient.: Yes I have reviewed all pertinent clinical information, including history, physical exam and plan: Yes Notes (Text): 07/27/18 11:07 Patient seen and examined with resident. Case discussed and agreed with plan.
[2018-07-27] MEDS: Albuterol 0.083% Inhal Sol (2.5 mg/3 mL) UD INH SCH ×2 (08:00→11:08)
[2018-07-27] MEDS: Potassium Chloride 20 mEq ER Tab PO SCH (10:04)
--- NOTE | 2018-07-27 11:19 | CP.PCM.PN ---
Subjective - Date & Time of Evaluation Date of Evaluation: 07/27/18 Time of Evaluation: 11:19 - Subjective Subjective: Appears comfortable lying in bed. Awake and cooperative with exam. Follows commands, answers questions appropriately. Vital signs have been stable, remains afebrile. Labs reviewed/stable. Post bronchoscopy chest x-ray reviewed. No dullness on percussion of the anterior chest wall. No palpable subcutaneous emphysema. No cyanosis or clubbing. Breath sounds are slightly diminished bilaterally. Bowel sounds are heard in the lower left hemithorax. Few scattered rhonchi w/o wheezes or bronchial breath sounds. Heart sounds are distant, regular. maintain current regimen. Stop acetylcysteine aerosol. Awaiting further results from [facility]. Objective - Vital Signs/Intake and Output Vital Signs (last 24 hours): Temp Pulse Resp BP Pulse Ox 97.6 F 85 20 127/66 95 07/27/18 08:12 07/27/18 08:12 07/27/18 08:12 07/27/18 08:12 07/27/18 08:12 Intake and Output: 07/26/18 07/27/18 23:59 11:59 Intake Total 1260 Output Total 2 Balance 1258 - Medications Medications: Current Medications Albuterol Sulfate (Albuterol 0.083% Inhal Julieth (2.5 Mg/3 Ml) Ud) 2.5 mg INH RQID [facility] Last Admin: 07/27/18 11:08 Dose: 2.5 mg Albuterol/Ipratropium (Duoneb 3 Mg/0.5 Mg (3 Ml) Ud) 3 ml INH RQ6 PRN PRN Reason: Shortness of Breath Last Admin: 07/24/18 10:03 Dose: 3 ml Donepezil HCl (Aricept) 10 mg NG HS [facility] Last Admin: 07/26/18 22:33 Dose: 10 mg Meropenem 500 mg/ Sodium (Chloride) 100 mls @ 100 mls/hr IVPB Q8 [facility]; Protocol Last Admin: 07/27/18 09:11 Dose: 100 mls/hr Ketorolac Tromethamine (Toradol) 30 mg IVP Q6 PRN PRN Reason: Pain, severe (8-10) Last Admin: 07/25/18 20:00 Dose: 30 mg Mirtazapine (Remeron) 30 mg PO HS [facility] Last Admin: 07/26/18 22:33 Dose: 30 mg Ondansetron HCl (Zofran Inj) 4 mg IVP Q6 PRN PRN Reason: Nausea/Vomiting Last Admin: 07/12/18 10:40 Dose: 4 mg Potassium Chloride (K-Dur 20 Meq Er Tab) 20 meq PO DAILY [facility] Last Admin: 07/27/18 10:04 Dose: 20 meq Pravastatin Sodium (Pravachol) 20 mg PO HS [facility] Last Admin: 07/26/18 22:33 Dose: 20 mg - Labs Labs: 07/27/18 05:19 07/27/18 05:19 PT 14.9 Seconds (9.8-13.1) H 07/18/18 05:00 INR 1.3 07/18/18 05:00 APTT 25.6 Seconds (25.6-37.1) 07/18/18 05:00 Assessment and Plan (1) Pleural effusion Status: Acute (2) Atelectasis Status: Acute (3) Acute respiratory insufficiency Status: Acute
--- NOTE | 2018-07-27 14:59 | CP.PCM.PN ---
<Amadeo Velasquez - Last Filed: 07/27/18 14:55> Subjective - Date & Time of Evaluation Date of Evaluation: 07/27/18 Time of Evaluation: 14:55 - Subjective Subjective: General Surgery Note for Dr. Mendez This 87F was seen and examined at bedside. No acute event overnight. pain is controlled. Patient denies cp, or SOB. She admits to passing flatus and having BMs. She is tolerating diet. Wound vac dressing changes every 3 days while in house, otherwise no managment per surgery. Objective - Vital Signs/Intake and Output Vital Signs (last 24 hours): Temp Pulse Resp BP Pulse Ox 97.5 F L 96 H 20 103/61 94 L 07/27/18 12:15 07/27/18 12:15 07/27/18 12:15 07/27/18 12:15 07/27/18 12:15 - Medications Medications: Current Medications Albuterol/Ipratropium (Duoneb 3 Mg/0.5 Mg (3 Ml) Ud) 3 ml INH RQ6 PRN PRN Reason: Shortness of Breath Last Admin: 07/24/18 10:03 Dose: 3 ml Donepezil HCl (Aricept) 10 mg NG HS [facility] Last Admin: 07/26/18 22:33 Dose: 10 mg Meropenem 500 mg/ Sodium (Chloride) 100 mls @ 100 mls/hr IVPB Q8 [facility]; Protocol Last Admin: 07/27/18 09:11 Dose: 100 mls/hr Ketorolac Tromethamine (Toradol) 30 mg IVP Q6 PRN PRN Reason: Pain, severe (8-10) Last Admin: 07/25/18 20:00 Dose: 30 mg Mirtazapine (Remeron) 30 mg PO HS [facility] Last Admin: 07/26/18 22:33 Dose: 30 mg Ondansetron HCl (Zofran Inj) 4 mg IVP Q6 PRN PRN Reason: Nausea/Vomiting Last Admin: 07/12/18 10:40 Dose: 4 mg Potassium Chloride (K-Dur 20 Meq Er Tab) 20 meq PO DAILY [facility] Last Admin: 07/27/18 10:04 Dose: 20 meq Pravastatin Sodium (Pravachol) 20 mg PO HS [facility] Last Admin: 07/26/18 22:33 Dose: 20 mg - Labs Labs: 07/27/18 05:19 07/27/18 05:19 PT 14.9 Seconds (9.8-13.1) H 07/18/18 05:00 INR 1.3 07/18/18 05:00 APTT 25.6 Seconds (25.6-37.1) 07/18/18 05:00 - Constitutional Appears: Well, Non-toxic, No Acute Distress - Head Exam Head Exam: ATRAUMATIC, NORMOCEPHALIC - Eye Exam Eye Exam: Normal appearance - ENT Exam ENT Exam: Mucous Membranes Moist - Respiratory Exam Respiratory Exam: Clear to Ausculation Bilateral, NORMAL BREATHING PATTERN. absent: Accessory Muscle Use, Respiratory Distress - GI/Abdominal Exam GI & Abdominal Exam: Soft, Tenderness, Normal Bowel Sounds. absent: Distended, Firm, Guarding, Rigid Additional comments: Incision with wound vac in place - Neurological Exam Neurological Exam: Alert, Awake - Psychiatric Exam Psychiatric exam: Normal Affect, Normal Mood Assessment and Plan - Assessment and Plan (Free Text) Assessment: 87 F s/p exploratory laparotomy POD#15 Plan: -Replete electrolytes as needed -Wound Vac to be changed today -No more surgical managment recommend rehab Case discussed with Dr. Mustafa PGY3 <Wilder Bullock - Last Filed: 07/28/18 14:19> Subjective - Subjective Subjective: All medical record entries made by the resident were at my direction and per sonally directed by me. I have reviewed the chart and agree that the record accurately reflects my personal performance of the history, physical exam, medical decision making, Objective - Vital Signs/Intake and Output Vital Signs (last 24 hours): Temp Pulse Resp BP Pulse Ox 98.2 F 88 20 111/68 96 07/28/18 12:06 07/28/18 12:06 07/28/18 12:06 07/28/18 12:06 07/28/18 12:06 Intake and Output: 07/28/18 07/28/18 06:59 18:59 Intake Total 420 Balance 420 - Medications Medications: Current Medications Albuterol/Ipratropium (Duoneb 3 Mg/0.5 Mg (3 Ml) Ud) 3 ml INH RQ6 PRN PRN Reason: Shortness of Breath Last Admin: 07/24/18 10:03 Dose: 3 ml Donepezil HCl (Aricept) 10 mg NG HS [facility] Last Admin: 07/27/18 21:57 Dose: 10 mg Meropenem 500 mg/ Sodium (Chloride) 100 mls @ 100 mls/hr IVPB Q8 [facility]; Protocol Last Admin: 07/28/18 08:50 Dose: 100 mls/hr Ketorolac Tromethamine (Toradol) 30 mg IVP Q6 PRN PRN Reason: Pain, severe (8-10) Last Admin: 07/27/18 18:12 Dose: 30 mg Mirtazapine (Remeron) 30 mg PO HS [facility] Last Admin: 07/27/18 21:57 Dose: 30 mg Ondansetron HCl (Zofran Inj) 4 mg IVP Q6 PRN PRN Reason: Nausea/Vomiting Last Admin: 07/12/18 10:40 Dose: 4 mg Potassium Chloride (K-Dur 20 Meq Er Tab) 20 meq PO DAILY [facility] Last Admin: 07/28/18 08:50 Dose: 20 meq Pravastatin Sodium (Pravachol) 20 mg PO HS [facility] Last Admin: 07/27/18 21:57 Dose: 20 mg - Labs Labs: 07/28/18 05:26 07/28/18 05:26 PT 14.9 Seconds (9.8-13.1) H 07/18/18 05:00 INR 1.3 07/18/18 05:00 APTT 25.6 Seconds (25.6-37.1) 07/18/18 05:00 Assessment and Plan - Assessment and Plan (Free Text) Assessment: All medical record entries made by the resident were at my direction and personally directed by me. I have reviewed the chart and agree that the record accurately reflects my personal performance of the history, physical exam, medical decision making,
[2018-07-27] MEDS: Pravastatin Sodium 20 MG TAB PO SCH (21:57)
[2018-07-28] MEDS: Meropenem 500 MG in Sodium Chloride 0.9% 100 ML IVPB SCH ×3 (00:47→18:27)
[2018-07-28 06:42] LABS: HEMOGLOBIN 10.7 g/dL (12.0-16.0); MEAN CELL VOLUME 91.5 fl (81.0-99.0); MEAN CORPUSCULAR HEMOGLOBIN 30.2 pg (27.0-31.0); RBC 3.53 Mil/uL (3.80-5.20); RED CELL DISTRIBUTION WIDTH 14.9 % (11.5-14.5); WHITE BLOOD COUNT 6.3 K/uL (4.8-10.8)
--- NOTE | 2018-07-28 06:51 | CP.PCM.PN ---
<Mejia Gordillo - Last Filed: 07/28/18 12:23> Subjective - Date & Time of Evaluation Date of Evaluation: 07/28/18 Time of Evaluation: 07:00 - Subjective Subjective: Patient seen and examined at bedside, no acute event overnight. Patient have no complains today. Wound vac to be changed today, Patient denies any chest pain, sob, abd pain, diarrhea, constipation, dysuria. Objective - Vital Signs/Intake and Output Vital Signs (last 24 hours): Temp Pulse Resp BP Pulse Ox 97.4 F L 86 18 110/69 94 L 07/28/18 04:56 07/28/18 04:56 07/28/18 04:56 07/28/18 04:56 07/28/18 04:56 Intake and Output: 07/27/18 07/28/18 18:59 06:59 Intake Total 660 Balance 660 - Medications Medications: Current Medications Albuterol/Ipratropium (Duoneb 3 Mg/0.5 Mg (3 Ml) Ud) 3 ml INH RQ6 PRN PRN Reason: Shortness of Breath Last Admin: 07/24/18 10:03 Dose: 3 ml Donepezil HCl (Aricept) 10 mg NG HS [facility] Last Admin: 07/27/18 21:57 Dose: 10 mg Meropenem 500 mg/ Sodium (Chloride) 100 mls @ 100 mls/hr IVPB Q8 [facility]; Protocol Last Admin: 07/28/18 00:47 Dose: 100 mls/hr Ketorolac Tromethamine (Toradol) 30 mg IVP Q6 PRN PRN Reason: Pain, severe (8-10) Last Admin: 07/27/18 18:12 Dose: 30 mg Mirtazapine (Remeron) 30 mg PO HS [facility] Last Admin: 07/27/18 21:57 Dose: 30 mg Ondansetron HCl (Zofran Inj) 4 mg IVP Q6 PRN PRN Reason: Nausea/Vomiting Last Admin: 07/12/18 10:40 Dose: 4 mg Potassium Chloride (K-Dur 20 Meq Er Tab) 20 meq PO DAILY [facility] Last Admin: 07/27/18 10:04 Dose: 20 meq Pravastatin Sodium (Pravachol) 20 mg PO HS [facility] Last Admin: 07/27/18 21:57 Dose: 20 mg - Labs Labs: 07/28/18 05:26 07/27/18 05:19 PT 14.9 Seconds (9.8-13.1) H 07/18/18 05:00 INR 1.3 07/18/18 05:00 APTT 25.6 Seconds (25.6-37.1) 07/18/18 05:00 - Constitutional Appears: Well, Non-toxic, No Acute Distress - Head Exam Head Exam: ATRAUMATIC, NORMAL INSPECTION, NORMOCEPHALIC - Eye Exam Eye Exam: EOMI, Normal appearance, PERRL Pupil Exam: NORMAL ACCOMODATION, PERRL - ENT Exam ENT Exam: Mucous Membranes Moist, Normal Exam - Neck Exam Neck Exam: Full ROM, Normal Inspection - Respiratory Exam Respiratory Exam: Clear to Ausculation Bilateral, NORMAL BREATHING PATTERN - Cardiovascular Exam Cardiovascular Exam: REGULAR RHYTHM, +S1, +S2 - GI/Abdominal Exam GI & Abdominal Exam: Soft, Normal Bowel Sounds Additional comments: Wound vac placed Assessment and Plan - Assessment and Plan (Free Text) Assessment: 87 F who presents with septic shock, acute respiratory failure, elevated lactate, s/p exploratory laparotomy, lysis of adhesion, and repair of enterotomy x2 for SBO POD 16 Plan: Bilateral Pleural effusion b/l Atelectasis - Repeat chest CT: stable pleural effusions, bibasilar atelectasis - Pulmonology consult, recs appreciated - s/p flexible broncho 07/25/18 -Bronchial culture Stenotrophomonas maltophilia( Prelim) - on NC at 2 lpm - respiratory therapy - Encouraged PT and OOB - continue IS Small bowel obstruction/ s/p ex laparotomy POD 15 - General surgery, Dr. Mendez on board - Pain management - Tolerating PO - Wound vac changed today ( change every 3 days) - encouraged incentive spirometry and OOB - s/p flagyl -Meropenem ( DC on 07/29/18) - PT Acute ND - 2/2 hypotension during surgery or tachycardia during A Fib. - Hemodynamically stable - Echo: preserved left ventricular systolic function. - Cardiology consulted Hypertension - controlled - metoprolol succinated 50 mg ER Hyperlipidemia - resume pravastatin 20 mg po hs GERD - protonix 40 mg IVP Hiatal hernia - c/w protonix 40 mg IVP Cognitive impairment - aricept Insomnia/anxiety - remeron and aricept DVT prophylaxis - SCDs - Lovenox 40 sc Dispo: MANDEEP <Demario Cowan D - Last Filed: 07/28/18 13:26> Objective - Vital Signs/Intake and Output Vital Signs (last 24 hours): Temp Pulse Resp BP Pulse Ox 98.2 F 88 20 111/68 96 07/28/18 12:06 07/28/18 12:06 07/28/18 12:06 07/28/18 12:06 07/28/18 12:06 Intake and Output: 07/28/18 07/28/18 06:59 18:59 Intake Total 420 Balance 420 - Medications Medications: Current Medications Albuterol/Ipratropium (Duoneb 3 Mg/0.5 Mg (3 Ml) Ud) 3 ml INH RQ6 PRN PRN Reason: Shortness of Breath Last Admin: 07/24/18 10:03 Dose: 3 ml Donepezil HCl (Aricept) 10 mg NG HS [facility] Last Admin: 07/27/18 21:57 Dose: 10 mg Meropenem 500 mg/ Sodium (Chloride) 100 mls @ 100 mls/hr IVPB Q8 [facility]; Protocol Last Admin: 07/28/18 08:50 Dose: 100 mls/hr Ketorolac Tromethamine (Toradol) 30 mg IVP Q6 PRN PRN Reason: Pain, severe (8-10) Last Admin: 07/27/18 18:12 Dose: 30 mg Mirtazapine (Remeron) 30 mg PO HS [facility] Last Admin: 07/27/18 21:57 Dose: 30 mg Ondansetron HCl (Zofran Inj) 4 mg IVP Q6 PRN PRN Reason: Nausea/Vomiting Last Admin: 07/12/18 10:40 Dose: 4 mg Potassium Chloride (K-Dur 20 Meq Er Tab) 20 meq PO DAILY [facility] Last Admin: 07/28/18 08:50 Dose: 20 meq Pravastatin Sodium (Pravachol) 20 mg PO HS [facility] Last Admin: 07/27/18 21:57 Dose: 20 mg - Labs Labs: 07/28/18 05:26 07/28/18 05:26 PT 14.9 Seconds (9.8-13.1) H 07/18/18 05:00 INR 1.3 07/18/18 05:00 APTT 25.6 Seconds (25.6-37.1) 07/18/18 05:00 Attending/Attestation - Attestation I have personally seen and examined this patient.: Yes I have fully participated in the care of the patient.: Yes I have reviewed all pertinent clinical information, including history, physical exam and plan: Yes Notes (Text): 07/28/18 13:25 Patient seen and examined with resident. Case discussed and agreed with assessment and plan.
[2018-07-28 06:58] LABS: ALB/GLOB RATIO 0.9 (1.0-2.1); ALBUMIN 2.4 g/dL (3.5-5.0); ALT/SGPT 24 U/L (9-52); AST/SGOT 32 U/L (14-36); BLOOD UREA NITROGEN 11 mg/dl (7-17); CALCIUM 8.4 mg/dL (8.4-10.2); GFR NON-AFRICAN AMERICAN > 60
[2018-07-28] MEDS: Potassium Chloride 20 mEq ER Tab PO SCH (08:50)
--- NOTE | 2018-07-28 09:45 | CP.PCM.PN ---
<Amadeo Velasquez - Last Filed: 07/28/18 09:44> Subjective - Date & Time of Evaluation Date of Evaluation: 07/28/18 Time of Evaluation: 07:00 - Subjective Subjective: General Surgery Note for Dr. Bullock This 87F was seen and examined at bedside. No acute event overnight. pain is controlled. Patient denies cp, or SOB. She admits to passing flatus and having BMs. She is tolerating diet. Wound vac dressing changes every 3 days while in house, otherwise no management per surgery. Objective - Vital Signs/Intake and Output Vital Signs (last 24 hours): Temp Pulse Resp BP Pulse Ox 97.2 F L 87 20 121/70 97 07/28/18 07:52 07/28/18 07:52 07/28/18 07:52 07/28/18 07:52 07/28/18 07:52 - Medications Medications: Current Medications Albuterol/Ipratropium (Duoneb 3 Mg/0.5 Mg (3 Ml) Ud) 3 ml INH RQ6 PRN PRN Reason: Shortness of Breath Last Admin: 07/24/18 10:03 Dose: 3 ml Donepezil HCl (Aricept) 10 mg NG HS [facility] Last Admin: 07/27/18 21:57 Dose: 10 mg Meropenem 500 mg/ Sodium (Chloride) 100 mls @ 100 mls/hr IVPB Q8 [facility]; Protocol Last Admin: 07/28/18 08:50 Dose: 100 mls/hr Ketorolac Tromethamine (Toradol) 30 mg IVP Q6 PRN PRN Reason: Pain, severe (8-10) Last Admin: 07/27/18 18:12 Dose: 30 mg Mirtazapine (Remeron) 30 mg PO HS [facility] Last Admin: 07/27/18 21:57 Dose: 30 mg Ondansetron HCl (Zofran Inj) 4 mg IVP Q6 PRN PRN Reason: Nausea/Vomiting Last Admin: 07/12/18 10:40 Dose: 4 mg Potassium Chloride (K-Dur 20 Meq Er Tab) 20 meq PO DAILY [facility] Last Admin: 07/28/18 08:50 Dose: 20 meq Pravastatin Sodium (Pravachol) 20 mg PO HS [facility] Last Admin: 07/27/18 21:57 Dose: 20 mg - Labs Labs: 07/28/18 05:26 07/28/18 05:26 PT 14.9 Seconds (9.8-13.1) H 07/18/18 05:00 INR 1.3 07/18/18 05:00 APTT 25.6 Seconds (25.6-37.1) 07/18/18 05:00 - Constitutional Appears: Well, Non-toxic, No Acute Distress - Head Exam Head Exam: ATRAUMATIC, NORMOCEPHALIC - Eye Exam Eye Exam: Normal appearance - ENT Exam ENT Exam: Mucous Membranes Moist - Respiratory Exam Respiratory Exam: Clear to Ausculation Bilateral, NORMAL BREATHING PATTERN. absent: Accessory Muscle Use, Respiratory Distress - GI/Abdominal Exam GI & Abdominal Exam: Soft, Tenderness, Normal Bowel Sounds. absent: Distended, Firm, Guarding, Rigid Additional comments: Incision with wound vac in place - Neurological Exam Neurological Exam: Alert, Awake - Psychiatric Exam Psychiatric exam: Normal Affect, Normal Mood Assessment and Plan - Assessment and Plan (Free Text) Assessment: 87 F s/p exploratory laparotomy POD#16 Plan: -Replete electrolytes as needed -Wound Vac to be changed today -No more surgical managment recommend rehab Case discussed with Dr. Kobe Velasquez PGY3 <Wilder Bullock - Last Filed: 07/28/18 14:16> Objective - Vital Signs/Intake and Output Vital Signs (last 24 hours): Temp Pulse Resp BP Pulse Ox 98.2 F 88 20 111/68 96 07/28/18 12:06 07/28/18 12:06 07/28/18 12:06 07/28/18 12:06 07/28/18 12:06 Intake and Output: 07/28/18 07/28/18 06:59 18:59 Intake Total 420 Balance 420 - Medications Medications: Current Medications Albuterol/Ipratropium (Duoneb 3 Mg/0.5 Mg (3 Ml) Ud) 3 ml INH RQ6 PRN PRN Reason: Shortness of Breath Last Admin: 07/24/18 10:03 Dose: 3 ml Donepezil HCl (Aricept) 10 mg NG HS [facility] Last Admin: 07/27/18 21:57 Dose: 10 mg Meropenem 500 mg/ Sodium (Chloride) 100 mls @ 100 mls/hr IVPB Q8 [facility]; Protocol Last Admin: 07/28/18 08:50 Dose: 100 mls/hr Ketorolac Tromethamine (Toradol) 30 mg IVP Q6 PRN PRN Reason: Pain, severe (8-10) Last Admin: 07/27/18 18:12 Dose: 30 mg Mirtazapine (Remeron) 30 mg PO HS [facility] Last Admin: 07/27/18 21:57 Dose: 30 mg Ondansetron HCl (Zofran Inj) 4 mg IVP Q6 PRN PRN Reason: Nausea/Vomiting Last Admin: 07/12/18 10:40 Dose: 4 mg Potassium Chloride (K-Dur 20 Meq Er Tab) 20 meq PO DAILY [facility] Last Admin: 07/28/18 08:50 Dose: 20 meq Pravastatin Sodium (Pravachol) 20 mg PO HS [facility] Last Admin: 07/27/18 21:57 Dose: 20 mg - Labs Labs: 07/28/18 05:26 07/28/18 05:26 PT 14.9 Seconds (9.8-13.1) H 07/18/18 05:00 INR 1.3 07/18/18 05:00 APTT 25.6 Seconds (25.6-37.1) 07/18/18 05:00 Assessment and Plan - Assessment and Plan (Free Text) Assessment: All medical record entries made by the resident were at my direction and personally directed by me. I have reviewed the chart and agree that the record accurately reflects my personal performance of the history, physical exam, medical decision making,
[2018-07-29] MEDS: Meropenem 500 MG in Sodium Chloride 0.9% 100 ML IVPB SCH ×2 (00:34→09:27)
[2018-07-29 05:56] LABS: HEMOGLOBIN 10.1 g/dL (12.0-16.0); MEAN CELL VOLUME 92.1 fl (81.0-99.0); MEAN CORPUSCULAR HEMOGLOBIN 29.9 pg (27.0-31.0); MEAN CORPUSCULAR HGB CONC 32.5 g/dL (33.0-37.0); RBC 3.37 Mil/uL (3.80-5.20); WHITE BLOOD COUNT 6.1 K/uL (4.8-10.8)
[2018-07-29 06:15] LABS: ALB/GLOB RATIO 0.9 (1.0-2.1); ALBUMIN 2.3 g/dL (3.5-5.0); ALT/SGPT 30 U/L (9-52); AST/SGOT 34 U/L (14-36); BLOOD UREA NITROGEN 8 mg/dl (7-17); CALCIUM 8.7 mg/dL (8.4-10.2); GFR NON-AFRICAN AMERICAN > 60
--- NOTE | 2018-07-29 07:44 | CP.PCM.PN ---
<Tremayne Candelaria - Last Filed: 07/29/18 13:29> Subjective - Date & Time of Evaluation Date of Evaluation: 07/29/18 Time of Evaluation: 08:00 - Subjective Subjective: General Surgery Note for Dr. Bullock Patient was seen and examined at bedside. No acute event overnight. pain is controlled. She admits to passing flatus and having BMs. She is tolerating diet. Wound vac dressing changes every 3 days while inpatient, Last changed 07/27. Objective - Vital Signs/Intake and Output Vital Signs (last 24 hours): Temp Pulse Resp BP Pulse Ox 98.8 F 89 18 134/81 99 07/29/18 04:39 07/29/18 04:39 07/29/18 04:39 07/29/18 04:39 07/29/18 04:39 Intake and Output: 07/29/18 07/29/18 06:59 18:59 Intake Total 450 Output Total 900 Balance -450 - Medications Medications: Current Medications Albuterol/Ipratropium (Duoneb 3 Mg/0.5 Mg (3 Ml) Ud) 3 ml INH RQ6 PRN PRN Reason: Shortness of Breath Last Admin: 07/24/18 10:03 Dose: 3 ml Donepezil HCl (Aricept) 10 mg NG HS [facility] Last Admin: 07/28/18 21:33 Dose: 10 mg Meropenem 500 mg/ Sodium (Chloride) 100 mls @ 100 mls/hr IVPB Q8 [facility]; Protocol Last Admin: 07/29/18 00:34 Dose: 100 mls/hr Ketorolac Tromethamine (Toradol) 30 mg IVP Q6 PRN PRN Reason: Pain, severe (8-10) Last Admin: 07/27/18 18:12 Dose: 30 mg Mirtazapine (Remeron) 30 mg PO HS [facility] Last Admin: 07/28/18 21:33 Dose: 30 mg Ondansetron HCl (Zofran Inj) 4 mg IVP Q6 PRN PRN Reason: Nausea/Vomiting Last Admin: 07/12/18 10:40 Dose: 4 mg Potassium Chloride (K-Dur 20 Meq Er Tab) 20 meq PO DAILY [facility] Last Admin: 07/28/18 08:50 Dose: 20 meq Pravastatin Sodium (Pravachol) 20 mg PO HS [facility] Last Admin: 07/27/18 21:57 Dose: 20 mg - Labs Labs: 07/29/18 05:20 07/29/18 05:20 PT 14.9 Seconds (9.8-13.1) H 07/18/18 05:00 INR 1.3 07/18/18 05:00 APTT 25.6 Seconds (25.6-37.1) 07/18/18 05:00 - Additional Findings Additional findings: - Constitutional Appears: Well, Non-toxic, No Acute Distress - Head Exam Head Exam: ATRAUMATIC, NORMOCEPHALIC - Eye Exam Eye Exam: Normal appearance - ENT Exam ENT Exam: Mucous Membranes Moist - Respiratory Exam Respiratory Exam: Clear to Ausculation Bilateral, NORMAL BREATHING PATTERN. absent: Accessory Muscle Use, Respiratory Distress - GI/Abdominal Exam GI & Abdominal Exam: Soft, Tenderness, Normal Bowel Sounds. absent: Distended, Firm, Guarding, Rigid Additional comments: Incision with wound vac in place - Neurological Exam Neurological Exam: Alert, Awake - Psychiatric Exam Psychiatric exam: Normal Affect, Normal Mood Assessment and Plan - Assessment and Plan (Free Text) Assessment: 87 F s/p exploratory laparotomy POD#17 Plan: -Diet as tolerated -Pain control -Replete electrolytes as needed -Wound Vac to be changed today -Pending MANDEEP -Management as per primary -Discussed with Dr. Kobe Candelaria PGY2 <Wilder Bullock - Last Filed: 07/30/18 11:04> Objective - Vital Signs/Intake and Output Vital Signs (last 24 hours): Temp Pulse Resp BP Pulse Ox 97.4 F L 82 18 98/58 L 93 L 07/30/18 08:00 07/30/18 09:00 07/30/18 08:00 07/30/18 08:00 07/30/18 08:00 - Medications Medications: Current Medications Albuterol/Ipratropium (Duoneb 3 Mg/0.5 Mg (3 Ml) Ud) 3 ml INH RQ6 PRN PRN Reason: Shortness of Breath Last Admin: 07/24/18 10:03 Dose: 3 ml Donepezil HCl (Aricept) 10 mg NG HS [facility] Last Admin: 07/29/18 21:25 Dose: 10 mg Enoxaparin Sodium (Lovenox) 40 mg SC DAILY [facility]; Protocol Last Admin: 07/30/18 09:21 Dose: 40 mg Trimethoprim/Sulfamethoxazole (360 mg/ Dextrose) 500 mls @ 333.333 mls/hr IVPB Q8 [facility]; Protocol Last Admin: 07/30/18 09:20 Dose: 333.333 mls/hr Ketorolac Tromethamine (Toradol) 30 mg IVP Q6 PRN PRN Reason: Pain, severe (8-10) Last Admin: 07/29/18 18:26 Dose: 30 mg Mirtazapine (Remeron) 30 mg PO HS [facility] Last Admin: 07/29/18 21:25 Dose: 30 mg Ondansetron HCl (Zofran Inj) 4 mg IVP Q6 PRN PRN Reason: Nausea/Vomiting Last Admin: 07/12/18 10:40 Dose: 4 mg Potassium Chloride (K-Dur 20 Meq Er Tab) 20 meq PO QOTHERDAY [facility] Pravastatin Sodium (Pravachol) 20 mg PO HS [facility] Last Admin: 07/29/18 21:25 Dose: 20 mg - Labs Labs: 07/29/18 05:20 07/29/18 05:20 PT 14.9 Seconds (9.8-13.1) H 07/18/18 05:00 INR 1.3 07/18/18 05:00 APTT 25.6 Seconds (25.6-37.1) 07/18/18 05:00 Assessment and Plan - Assessment and Plan (Free Text) Assessment: All medical record entries made by the resident were at my direction. I have reviewed the chart and agree that the record accurately reflects my personal performance of the history, physical exam, and medical decision making for this patient.
[2018-07-29] MEDS: Potassium Chloride 20 mEq ER Tab PO SCH (09:30)
--- NOTE | 2018-07-29 12:19 | CP.PCM.PN ---
Subjective - Date & Time of Evaluation Date of Evaluation: 07/29/18 Time of Evaluation: 08:25 - Subjective Subjective: Patient seen and examined at bedside, no acute event overnight. Still noted edema in upper/lower extremities. Wound vac to be changed by surgery. Patient denies any chest pain, sob, abd pain, diarrhea, constipation, dysuria. Objective - Vital Signs/Intake and Output Vital Signs (last 24 hours): Temp Pulse Resp BP Pulse Ox 97.9 F 83 18 119/72 96 07/29/18 07:56 07/29/18 07:56 07/29/18 07:56 07/29/18 07:56 07/29/18 07:56 Intake and Output: 07/29/18 07/29/18 06:59 18:59 Intake Total 450 Output Total 900 Balance -450 - Medications Medications: Current Medications Albuterol/Ipratropium (Duoneb 3 Mg/0.5 Mg (3 Ml) Ud) 3 ml INH RQ6 PRN PRN Reason: Shortness of Breath Last Admin: 07/24/18 10:03 Dose: 3 ml Donepezil HCl (Aricept) 10 mg NG HS [facility] Last Admin: 07/28/18 21:33 Dose: 10 mg Ketorolac Tromethamine (Toradol) 30 mg IVP Q6 PRN PRN Reason: Pain, severe (8-10) Last Admin: 07/27/18 18:12 Dose: 30 mg Mirtazapine (Remeron) 30 mg PO HS [facility] Last Admin: 07/28/18 21:33 Dose: 30 mg Ondansetron HCl (Zofran Inj) 4 mg IVP Q6 PRN PRN Reason: Nausea/Vomiting Last Admin: 07/12/18 10:40 Dose: 4 mg Potassium Chloride (K-Dur 20 Meq Er Tab) 20 meq PO QOTHERDAY [facility] Pravastatin Sodium (Pravachol) 20 mg PO HS [facility] Last Admin: 07/27/18 21:57 Dose: 20 mg - Labs Labs: 07/29/18 05:20 07/29/18 05:20 PT 14.9 Seconds (9.8-13.1) H 07/18/18 05:00 INR 1.3 07/18/18 05:00 APTT 25.6 Seconds (25.6-37.1) 07/18/18 05:00 - Constitutional Appears: Non-toxic, No Acute Distress - Eye Exam Eye Exam: Normal appearance - ENT Exam ENT Exam: Mucous Membranes Moist - Respiratory Exam Respiratory Exam: Clear to Ausculation Bilateral, NORMAL BREATHING PATTERN. absent: Rales, Rhonchi, Wheezes - Cardiovascular Exam Cardiovascular Exam: REGULAR RHYTHM, +S1, +S2 - GI/Abdominal Exam GI & Abdominal Exam: Soft, Normal Bowel Sounds Additional comments: Wound Vac in placed - Extremities Exam Extremities Exam: Pedal Edema. absent: Calf Tenderness Assessment and Plan - Assessment and Plan (Free Text) Assessment: 87 F who presents with septic shock, acute respiratory failure, elevated lactate, s/p exploratory laparotomy, lysis of adhesion, and repair of enterotomy x2 for SBO POD 17 Plan: Bilateral Pleural effusion b/l Atelectasis - Repeat chest CT: stable pleural effusions, bibasilar atelectasis - Pulmonology consult, recs appreciated - s/p flexible broncho 07/25/18 -Bronchial culture Stenotrophomonas maltophilia noted in final report -start Bactrim 15 mg/kg Q8 h as per ID recommendations Day #1 - on NC at 2 lpm - respiratory therapy - Encouraged PT and OOB - continue IS Small bowel obstruction/ s/p ex laparotomy POD 15 - General surgery, Dr. Mendez on board - Pain management - Tolerating PO - Wound vac dressing changes every 3 days while inpatient by surgical team. Last changed 07/27. - encouraged incentive spirometry and OOB - s/p flagyl - DC Meropenem ( DC on 07/29/18 as per ID recommendations) - PT Acute VA - 2/2 hypotension during surgery or tachycardia during A Fib. - Hemodynamically stable - Echo: preserved left ventricular systolic function. - Cardiology consulted Hypertension - controlled - metoprolol succinated 50 mg ER Hyperlipidemia - resume pravastatin 20 mg po hs GERD - protonix 40 mg IVP Hiatal hernia - c/w protonix 40 mg IVP Cognitive impairment - aricept Insomnia/anxiety - remeron and aricept DVT prophylaxis - SCDs - Lovenox 40 sc Dispo: possible MANDEEP
--- NOTE | 2018-07-29 13:06 | CP.PCM.PN ---
Subjective - Date & Time of Evaluation Date of Evaluation: 07/29/18 Time of Evaluation: 13:05 - Subjective Subjective: ID Note- Patient seen and examined today . pt. denies any fever or chills and denies any cough. states has slight fullness sensation in abdomen and low appetite. denies any diarrhea. Objective - Vital Signs/Intake and Output Vital Signs (last 24 hours): Temp Pulse Resp BP Pulse Ox 97.7 F 101 H 18 111/74 98 07/29/18 12:22 07/29/18 12:22 07/29/18 12:22 07/29/18 12:22 07/29/18 12:22 Intake and Output: 07/29/18 07/29/18 06:59 18:59 Intake Total 450 Output Total 900 Balance -450 - Medications Medications: Current Medications Albuterol/Ipratropium (Duoneb 3 Mg/0.5 Mg (3 Ml) Ud) 3 ml INH RQ6 PRN PRN Reason: Shortness of Breath Last Admin: 07/24/18 10:03 Dose: 3 ml Donepezil HCl (Aricept) 10 mg NG HS [facility] Last Admin: 07/28/18 21:33 Dose: 10 mg Ketorolac Tromethamine (Toradol) 30 mg IVP Q6 PRN PRN Reason: Pain, severe (8-10) Last Admin: 07/27/18 18:12 Dose: 30 mg Mirtazapine (Remeron) 30 mg PO HS [facility] Last Admin: 07/28/18 21:33 Dose: 30 mg Ondansetron HCl (Zofran Inj) 4 mg IVP Q6 PRN PRN Reason: Nausea/Vomiting Last Admin: 07/12/18 10:40 Dose: 4 mg Potassium Chloride (K-Dur 20 Meq Er Tab) 20 meq PO QOTHERDAY [facility] Pravastatin Sodium (Pravachol) 20 mg PO HS [facility] Last Admin: 07/27/18 21:57 Dose: 20 mg - Labs Labs: - Additional Findings Additional findings: Constitutional Appears: No Acute Distress Additional comments: awake and alert - Head Exam Head Exam: ATRAUMATIC - Eye Exam Eye Exam: EOMI, PERRL - Neck Exam Neck exam: Positive for: Full Rom - Respiratory Exam Additional comments: breath sounds heard b/l no wheezing slightly decreased at left base - Cardiovascular Exam Cardiovascular Exam: RRR, +S1, +S2 - GI/Abdominal Exam GI & Abdominal Exam: Soft Additional comments: mid lower abdomen surgical site with wound vac in place draining minimal serosanguinous fluid no erythema no tenderness soft - Extremities Exam Extremities exam: Positive for: normal inspection except 1+ LE edema B/L - Neurological Exam Neurological exam: AAO x 3 today. Laboratory Results - last 72 hr 07/27/18 07/27/18 07/28/18 05:19 05:19 05:26 WBC 6.5 6.3 RBC 3.02 L 3.53 L Hgb 9.3 L 10.7 L Hct 27.6 L 32.3 L MCV 91.4 91.5 MCH 30.7 30.2 MCHC 33.6 33.0 RDW 14.8 H 14.9 H Plt Count 334 341 Sodium 138 Potassium 3.6 Chloride 103 Carbon Dioxide 32 H Anion Gap 7 L BUN 14 Creatinine 0.5 L Est GFR ( Amer) > 60 Est GFR (Non-Af Amer) > 60 Random Glucose 79 Calcium 8.0 L Total Bilirubin 0.2 AST 28 ALT 21 Alkaline Phosphatase 55 Total Protein 4.4 L Albumin 2.1 L Globulin 2.3 Albumin/Globulin Ratio 0.9 L 07/28/18 07/29/18 07/29/18 05:26 05:20 05:20 WBC 6.1 RBC 3.37 L Hgb 10.1 L Hct 31.0 L MCV 92.1 MCH 29.9 MCHC 32.5 L RDW 15.0 H Plt Count 323 Sodium 137 136 Potassium 4.0 4.0 Chloride 102 101 Carbon Dioxide 30 33 H Anion Gap 9 L 6 L BUN 11 8 Creatinine 0.4 L 0.5 L Est GFR ( Amer) > 60 > 60 Est GFR (Non-Af Amer) > 60 > 60 Random Glucose 85 79 Calcium 8.4 8.7 Total Bilirubin 0.3 0.2 AST 32 34 ALT 24 30 Alkaline Phosphatase 58 58 Total Protein 5.1 L 4.9 L Albumin 2.4 L 2.3 L Globulin 2.7 2.6 Albumin/Globulin Ratio 0.9 L 0.9 L Microbiology 07/25/18 11:00 Bronchial Washings Bronchial Culture - Final Stenotrophomonas Maltophilia 07/25/18 12:46 Other: Please Indicate Mycobacterial Culture - Preliminary 07/21/18 20:12 Naris MRSA Culture (Admit) - Final MRSA NOT DETECTED 07/14/18 17:00 Blood-Venous Blood Culture - Final NO GROWTH AFTER 5 DAYS 07/14/18 17:00 Blood-Venous Gram Stain - Final TEST NOT PERFORMED 07/14/18 15:58 Blood-Venous Blood Culture - Final NO GROWTH AFTER 5 DAYS 07/14/18 15:58 Blood-Venous Gram Stain - Final TEST NOT PERFORMED 07/13/18 16:00 Blood-Venous Blood Culture - Final NO GROWTH AFTER 5 DAYS 07/13/18 16:00 Blood-Venous Gram Stain - Final TEST NOT PERFORMED 07/13/18 17:00 Blood-Venous Blood Culture - Final NO GROWTH AFTER 5 DAYS 07/13/18 17:00 Blood-Venous Gram Stain - Final TEST NOT PERFORMED 07/14/18 16:00 Sputum Gram Stain - Final 07/14/18 16:00 Sputum Sputum Culture - Final No growth. 07/13/18 17:21 Urine,Elizondo Urine Culture - Final No Growth (<1,000 CFU/ML) 07/10/18 19:55 Urine Random Urine Culture - Final Gram Negative [place] Assessment and Plan (1) Small bowel obstruction Status: Acute (2) Sepsis Status: Acute - Assessment and Plan (Free Text) Assessment: A/P- 87 year old female with multiple past medical history and s/p past hemicolectomy and reversal of colostomy who was admitted with abd . pain and found to have SBO and is POD #1 s/p Exploratory laparotomy, extenive lysis of adhesions, repair of enterotomies x 2, washout. clinically improved. afebrile leukocytosis has resolved cxr improved s/p bronch BAL cx- reported today stenotrophomonas ( light growth) blood cx- neg x 4 sputum cx- neg repeat urine cx- neg plan- in light of the stenotrophomonas BAL cx reported today must start patietn on IV bactrim 15 mg/kg daily divided to q8 hours dosing. completed 14 days of empiric meropnem and flagyl for intra-abd Infection. completed 8 days of vanco. wound vac management as per surgical team. All above d/w primary team taking care oft he patient.
[2018-07-29] MEDS ORDERED: Tmp-Smz 16 mg-80 mg/ml Inj IVPB SCH (13:30)
[2018-07-29] MEDS ORDERED: DEXTROSE 5% IVPB SCH (15:00)
[2018-07-29] MEDS ORDERED: WATER IVPB SCH (15:00)
[2018-07-29] MEDS ORDERED: SULFAMETHOXAZOLE IVPB SCH (15:00)
[2018-07-29] MEDS ORDERED: TRIMETHOPRIM IVPB SCH (15:00)
[2018-07-29] MEDS: Enoxaparin 40 mg Syringe SC SCH (17:03)
[2018-07-29] MEDS: WATER IVPB SCH (17:03)
[2018-07-29] MEDS: TRIMETHOPRIM IVPB SCH (17:03)
[2018-07-29] MEDS: SULFAMETHOXAZOLE IVPB SCH (17:03)
[2018-07-29] MEDS: DEXTROSE 5% IVPB SCH (17:03)
[2018-07-29] MEDS: Pravastatin Sodium 20 MG TAB PO SCH (21:25)
[2018-07-30] MEDS: WATER IVPB SCH ×3 (01:55→17:41)
[2018-07-30] MEDS: TRIMETHOPRIM IVPB SCH ×3 (01:55→17:41)
[2018-07-30] MEDS: DEXTROSE 5% IVPB SCH ×3 (01:55→17:41)
[2018-07-30] MEDS: SULFAMETHOXAZOLE IVPB SCH ×3 (01:55→17:41)
--- NOTE | 2018-07-30 07:18 | CP.PCM.PN ---
Subjective - Date & Time of Evaluation Date of Evaluation: 07/30/18 Time of Evaluation: 07:55 - Subjective Subjective: Patient was seen and evaluated at bedside this morning. No acute events overnight. Still feeding weak and reporting poor appetite. Reports stomach fullness sensation after eating small amount of her meals. Still noted edema 3+ in lower extremities. Wound vac to be changed by surgery this morning. Patient denies any chest pain, sob, abd pain, diarrhea, constipation, dysuria. Yesterday patient was started on Bactrim IV 15 mg/kg daily divided to q8 hours dosing as per ID recommendations to treat stenotrophomonas reported in BAL culture. Objective - Vital Signs/Intake and Output Vital Signs (last 24 hours): Temp Pulse Resp BP Pulse Ox 97 F L 84 17 117/71 96 07/30/18 04:59 07/30/18 04:59 07/30/18 04:59 07/30/18 04:59 07/30/18 04:59 - Medications Medications: Current Medications Albuterol/Ipratropium (Duoneb 3 Mg/0.5 Mg (3 Ml) Ud) 3 ml INH RQ6 PRN PRN Reason: Shortness of Breath Last Admin: 07/24/18 10:03 Dose: 3 ml Donepezil HCl (Aricept) 10 mg NG HS [facility] Last Admin: 07/29/18 21:25 Dose: 10 mg Enoxaparin Sodium (Lovenox) 40 mg SC DAILY [facility]; Protocol Last Admin: 07/29/18 17:03 Dose: 40 mg Trimethoprim/Sulfamethoxazole (360 mg/ Dextrose) 500 mls @ 333.333 mls/hr IVPB Q8 [facility]; Protocol Last Admin: 07/30/18 01:55 Dose: 333.333 mls/hr Ketorolac Tromethamine (Toradol) 30 mg IVP Q6 PRN PRN Reason: Pain, severe (8-10) Last Admin: 07/29/18 18:26 Dose: 30 mg Mirtazapine (Remeron) 30 mg PO HS [facility] Last Admin: 07/29/18 21:25 Dose: 30 mg Ondansetron HCl (Zofran Inj) 4 mg IVP Q6 PRN PRN Reason: Nausea/Vomiting Last Admin: 07/12/18 10:40 Dose: 4 mg Potassium Chloride (K-Dur 20 Meq Er Tab) 20 meq PO QOTHERDAY [facility] Pravastatin Sodium (Pravachol) 20 mg PO HS [facility] Last Admin: 07/29/18 21:25 Dose: 20 mg - Labs Labs: 07/29/18 05:20 07/29/18 05:20 PT 14.9 Seconds (9.8-13.1) H 07/18/18 05:00 INR 1.3 07/18/18 05:00 APTT 25.6 Seconds (25.6-37.1) 07/18/18 05:00 - Skin Additional comments: Constitutional Appears: Non-toxic, No Acute Distress - Eye Exam Eye Exam: Normal appearance - ENT Exam ENT Exam: Mucous Membranes Moist - Respiratory Exam Respiratory Exam: Clear to Ausculation Bilateral, NORMAL BREATHING PATTERN. absent: Rales, Rhonchi, Wheezes - Cardiovascular Exam Cardiovascular Exam: REGULAR RHYTHM, +S1, +S2 - GI/Abdominal Exam GI & Abdominal Exam: Soft, Normal Bowel Sounds Additional comments: Wound Vac in placed - Extremities Exam Extremities Exam: Pedal Edema. absent: Calf Tenderness Assessment and Plan - Assessment and Plan (Free Text) Assessment: 87 F who presents with septic shock, acute respiratory failure, elevated lactate, s/p exploratory laparotomy, lysis of adhesion, and repair of enterotomy x2 for SBO POD 18 Plan: Stenotrophomonas maltophilia culture infection in Bronchial culture -Bronchial culture Stenotrophomonas maltophilia noted in final report -c/w Bactrim 15 mg/kg Q8 h as per ID recommendations Day #2 - f/u ID recommendations Abdominal open wound s/p Small bowel obstruction/ s/p ex laparotomy POD 18 -Wound vac dressing changes every 3 days while inpatient by surgical team. Last changed 07/30/18 -completed 14 days of empiric meropnem and flagyl for intra-abd Infection as per ID recs -completed 8 days of vanco as per ID recs Small bowel obstruction/ s/p ex laparotomy POD 18 - General surgery, Dr. Bullock on board - Pain management - Tolerating PO - encouraged incentive spirometry and OOB -f/u surgical team recommendations Deconditioning/weakness -start Vitamin B complex -calories count -c/w physical therapy Bilateral Pleural effusion b/l Atelectasis - Repeat chest CT: stable pleural effusions, bibasilar atelectasis - Pulmonology consult, recs appreciated - s/p flexible broncho 3/28/19 -Bronchial culture Stenotrophomonas maltophilia noted in final report -c/w Bactrim 15 mg/kg Q8 h as per ID recommendations Day #2 -on NC at 2 lpm -respiratory therapy -Encouraged PT and OOB -continue with incentive spirometer h/o HTN -BP in low normal levels without medication -c/w BP monitor Hyperlipidemia - resume pravastatin 20 mg po hs Cognitive impairment - aricept 10 mg HS Insomnia/anxiety - Mirtazapine 30 mg PO HS DVT prophylaxis - SCDs - Lovenox 40 mg sc Dispo: possible MANDEEP
--- NOTE | 2018-07-30 07:28 | CP.PCM.PN ---
<Tremayne Candelaria - Last Filed: 07/30/18 09:52> Subjective - Date & Time of Evaluation Date of Evaluation: 07/30/18 Time of Evaluation: 09:52 - Subjective Subjective: General Surgery Note for Dr. Bullock Patient was seen and examined at bedside. No acute event overnight. pain is controlled. She admits to passing flatus and having BMs. She is tolerating diet. Wound vac dressing changes every 3 days while inpatient. Will be changed today 07/30, then next change will be Wednesday 08/02. No complaints at this time. Objective - Vital Signs/Intake and Output Vital Signs (last 24 hours): Temp Pulse Resp BP Pulse Ox 97 F L 84 17 117/71 96 07/30/18 04:59 07/30/18 04:59 07/30/18 04:59 07/30/18 04:59 07/30/18 04:59 - Medications Medications: Current Medications Albuterol/Ipratropium (Duoneb 3 Mg/0.5 Mg (3 Ml) Ud) 3 ml INH RQ6 PRN PRN Reason: Shortness of Breath Last Admin: 07/24/18 10:03 Dose: 3 ml Donepezil HCl (Aricept) 10 mg NG HS [facility] Last Admin: 07/29/18 21:25 Dose: 10 mg Enoxaparin Sodium (Lovenox) 40 mg SC DAILY [facility]; Protocol Last Admin: 07/29/18 17:03 Dose: 40 mg Trimethoprim/Sulfamethoxazole (360 mg/ Dextrose) 500 mls @ 333.333 mls/hr IVPB Q8 [facility]; Protocol Last Admin: 07/30/18 01:55 Dose: 333.333 mls/hr Ketorolac Tromethamine (Toradol) 30 mg IVP Q6 PRN PRN Reason: Pain, severe (8-10) Last Admin: 07/29/18 18:26 Dose: 30 mg Mirtazapine (Remeron) 30 mg PO HS [facility] Last Admin: 07/29/18 21:25 Dose: 30 mg Ondansetron HCl (Zofran Inj) 4 mg IVP Q6 PRN PRN Reason: Nausea/Vomiting Last Admin: 07/12/18 10:40 Dose: 4 mg Potassium Chloride (K-Dur 20 Meq Er Tab) 20 meq PO QOTHERDAY [facility] Pravastatin Sodium (Pravachol) 20 mg PO HS [facility] Last Admin: 07/29/18 21:25 Dose: 20 mg - Labs Labs: 07/29/18 05:20 07/29/18 05:20 PT 14.9 Seconds (9.8-13.1) H 07/18/18 05:00 INR 1.3 07/18/18 05:00 APTT 25.6 Seconds (25.6-37.1) 07/18/18 05:00 - Additional Findings Additional findings: - Constitutional Appears: Well, Non-toxic, No Acute Distress - Head Exam Head Exam: ATRAUMATIC, NORMOCEPHALIC - Eye Exam Eye Exam: Normal appearance - ENT Exam ENT Exam: Mucous Membranes Moist - Respiratory Exam Respiratory Exam: Clear to Ausculation Bilateral, NORMAL BREATHING PATTERN. absent: Accessory Muscle Use, Respiratory Distress - GI/Abdominal Exam GI & Abdominal Exam: Soft, Tenderness, Normal Bowel Sounds. absent: Distended, Firm, Guarding, Rigid Additional comments: Incision with wound vac in place - Neurological Exam Neurological Exam: Alert, Awake - Psychiatric Exam Psychiatric exam: Normal Affect, Normal Mood Assessment and Plan - Assessment and Plan (Free Text) Assessment: 87 F s/p exploratory laparotomy POD#18 Plan: -Diet as tolerated -Pain control -Replete electrolytes as needed -Wound Vac to be changed today 07/30 then again Wednesday 08/02 -Pending MANDEEP -Management as per primary -Clear for discharge from surgical standpoint -Discussed with Dr. Kobe Candelaria PGY2 <Wilder Bullock - Last Filed: 07/30/18 11:12> Objective - Vital Signs/Intake and Output Vital Signs (last 24 hours): Temp Pulse Resp BP Pulse Ox 97.4 F L 82 18 98/58 L 93 L 07/30/18 08:00 07/30/18 09:00 07/30/18 08:00 07/30/18 08:00 07/30/18 08:00 - Medications Medications: Current Medications Albuterol/Ipratropium (Duoneb 3 Mg/0.5 Mg (3 Ml) Ud) 3 ml INH RQ6 PRN PRN Reason: Shortness of Breath Last Admin: 07/24/18 10:03 Dose: 3 ml Donepezil HCl (Aricept) 10 mg NG HS [facility] Last Admin: 07/29/18 21:25 Dose: 10 mg Enoxaparin Sodium (Lovenox) 40 mg SC DAILY [facility]; Protocol Last Admin: 07/30/18 09:21 Dose: 40 mg Trimethoprim/Sulfamethoxazole (360 mg/ Dextrose) 500 mls @ 333.333 mls/hr IVPB Q8 [facility]; Protocol Last Admin: 07/30/18 09:20 Dose: 333.333 mls/hr Ketorolac Tromethamine (Toradol) 30 mg IVP Q6 PRN PRN Reason: Pain, severe (8-10) Last Admin: 07/29/18 18:26 Dose: 30 mg Mirtazapine (Remeron) 30 mg PO HS [facility] Last Admin: 07/29/18 21:25 Dose: 30 mg Ondansetron HCl (Zofran Inj) 4 mg IVP Q6 PRN PRN Reason: Nausea/Vomiting Last Admin: 07/12/18 10:40 Dose: 4 mg Potassium Chloride (K-Dur 20 Meq Er Tab) 20 meq PO QOTHERDAY [facility] Pravastatin Sodium (Pravachol) 20 mg PO HS [facility] Last Admin: 07/29/18 21:25 Dose: 20 mg - Labs Labs: 07/29/18 05:20 07/29/18 05:20 PT 14.9 Seconds (9.8-13.1) H 07/18/18 05:00 INR 1.3 07/18/18 05:00 APTT 25.6 Seconds (25.6-37.1) 07/18/18 05:00 Assessment and Plan - Assessment and Plan (Free Text) Plan: All medical record entries made by the resident were at my direction. I have reviewed the chart and agree that the record accurately reflects my personal performance of the history, physical exam, and medical decision making for this patient.
[2018-07-30] MEDS: Enoxaparin 40 mg Syringe SC SCH (09:21)
[2018-07-30] MEDS ORDERED: Pantoprazole 40 mg EC Tab PO ONE (11:49)
[2018-07-30] MEDS: Multivitamin Vitamin B Complex (Nephro-Vite) Tab PO SCH (13:41)
[2018-07-30] MEDS: Pravastatin Sodium 20 MG TAB PO SCH (21:16)
[2018-07-31] MEDS: TRIMETHOPRIM IVPB SCH ×2 (01:31→09:54)
[2018-07-31] MEDS: SULFAMETHOXAZOLE IVPB SCH ×2 (01:31→09:54)
[2018-07-31] MEDS: WATER IVPB SCH ×2 (01:31→09:54)
[2018-07-31] MEDS: DEXTROSE 5% IVPB SCH ×2 (01:31→09:54)
--- NOTE | 2018-07-31 06:56 | CP.PCM.PN ---
Subjective - Date & Time of Evaluation Date of Evaluation: 07/31/18 Time of Evaluation: 08:00 - Subjective Subjective: Patient was seen and examined this morning at bedside. Patient states she feels weak, and has very poor appetite. Has had intermittent stomach discomfort associated with nausea without vomiting. Afebrile, but noted that BP has been in low levels. Denies chest pain, SOB, vomiting. Passing gas and having bowel movements as per nurse report. Patient is very forgetful. Objective - Vital Signs/Intake and Output Vital Signs (last 24 hours): Temp Pulse Resp BP Pulse Ox 97.7 F 89 18 94/53 L 95 07/31/18 05:25 07/31/18 05:25 07/31/18 05:25 07/31/18 05:25 07/31/18 05:25 Intake and Output: 07/30/18 07/31/18 18:59 06:59 Intake Total 1350 Output Total 450 Balance 900 - Medications Medications: Current Medications Albuterol/Ipratropium (Duoneb 3 Mg/0.5 Mg (3 Ml) Ud) 3 ml INH RQ6 PRN PRN Reason: Shortness of Breath Last Admin: 07/24/18 10:03 Dose: 3 ml Donepezil HCl (Aricept) 10 mg NG HS [facility] Last Admin: 07/30/18 21:17 Dose: 10 mg Enoxaparin Sodium (Lovenox) 40 mg SC DAILY [facility]; Protocol Last Admin: 07/30/18 09:21 Dose: 40 mg Trimethoprim/Sulfamethoxazole (360 mg/ Dextrose) 340 mls @ 226.667 mls/hr IVPB Q8 [facility]; Protocol Last Admin: 07/31/18 01:31 Dose: 226.667 mls/hr Ketorolac Tromethamine (Toradol) 30 mg IVP Q6 PRN PRN Reason: Pain, severe (8-10) Last Admin: 07/29/18 18:26 Dose: 30 mg Mirtazapine (Remeron) 30 mg PO HS [facility] Last Admin: 07/30/18 21:16 Dose: 30 mg Pantoprazole Sodium (Protonix Ec Tab) 20 mg PO DAILY [facility] Potassium Chloride (K-Dur 20 Meq Er Tab) 20 meq PO QOTHERDAY [facility] Pravastatin Sodium (Pravachol) 20 mg PO HS [facility] Last Admin: 07/30/18 21:16 Dose: 20 mg Vitamin B Complex/Vit C/Folic Acid (Nephro-Liliana) 1 tab PO DAILY [facility] Last Admin: 07/30/18 13:41 Dose: 1 tab - Labs Labs: 07/29/18 05:20 07/29/18 05:20 PT 14.9 Seconds (9.8-13.1) H 07/18/18 05:00 INR 1.3 07/18/18 05:00 APTT 25.6 Seconds (25.6-37.1) 07/18/18 05:00 - Constitutional Appears: Non-toxic, No Acute Distress - ENT Exam ENT Exam: Mucous Membranes Dry - Respiratory Exam Respiratory Exam: Clear to Ausculation Bilateral (upper/middle lungs field, slightly decreased in lower lobes), NORMAL BREATHING PATTERN - Cardiovascular Exam Cardiovascular Exam: REGULAR RHYTHM, +S1, +S2 - GI/Abdominal Exam GI & Abdominal Exam: Soft, Normal Bowel Sounds. absent: Guarding, Rigid, Tenderness Additional comments: Wound Vac in placed - Extremities Exam Extremities Exam: Pedal Edema. absent: Calf Tenderness Additional comments: Edema 3+ of lower extremities - Neurological Exam Neurological Exam: Alert, Awake, Oriented x3 Assessment and Plan - Assessment and Plan (Free Text) Assessment: 87 F who presents with septic shock, acute respiratory failure, elevated lactate, s/p exploratory laparotomy, lysis of adhesion, and repair of enterotomy x2 for SBO POD 19 Plan: Stenotrophomonas maltophilia culture infection in Bronchial culture -Bronchial culture Stenotrophomonas maltophilia noted in final report -c/w Bactrim 15 mg/kg Q8 h as per ID recommendations Day #3 - f/u ID recommendations Deconditioning/weakness/Hypoalbuminuria -c/w Vitamin B complex -calories count -Health Officer consult for nutritional support and supplementation -start Pros-tat -c/w Ensure -check electrolytes in AM, CMP/Mag/Phos -promote oral intake -GFR >60, no proteinuria seen in last UA done on admission -c/w physical therapy Abdominal open wound s/p Small bowel obstruction/ s/p ex laparotomy POD 19 -Wound vac dressing changes every 3 days while inpatient by surgical team. Last changed 07/30/18. Scheduled Wound Vac for Wednesday 08/02. -completed 14 days of empiric meropnem and flagyl for intra-abd Infection as per ID recs -completed 8 days of vanco as per ID recs Small bowel obstruction/ s/p ex laparotomy POD 18 - General surgery, Dr. Bullock on board - Pain management - Tolerating PO - encouraged incentive spirometry and OOB -Clear for discharge from surgical standpoint Bilateral Pleural effusion b/l Atelectasis - Repeat chest CT: stable pleural effusions, bibasilar atelectasis - Pulmonology consult, recs appreciated - s/p flexible broncho 07/25/18 -Bronchial culture Stenotrophomonas maltophilia noted in final report -c/w Bactrim 15 mg/kg Q8 h as per ID recommendations Day #2 -on NC at 2 lpm -respiratory therapy -Encouraged PT and OOB -continue with incentive spirometer S/p Non-Q wave myocardial infarction probably secondary to a brief period of hypotension Cardiology was consulted, Dr. Barone. h/o HTN -BP in low normal levels without medication -will re-call Cardiology for re-evaluation. Recs are appreciated -c/w BP monitor Hyperlipidemia - resume pravastatin 20 mg po hs Cognitive impairment - aricept 10 mg HS Insomnia/anxiety - Mirtazapine 30 mg PO HS DVT prophylaxis - SCDs - Lovenox 40 mg sc Dispo: possible MANDEEP
[2018-07-31] MEDS ORDERED: Potassium Chloride 20 mEq ER Tab PO SCH (09:00)
[2018-07-31] MEDS: Multivitamin Vitamin B Complex (Nephro-Vite) Tab PO SCH (09:06)
[2018-07-31] MEDS: Enoxaparin 40 mg Syringe SC SCH (09:07)
[2018-07-31] MEDS: Pantoprazole 20 mg EC Tab PO SCH (09:55)
--- NOTE | 2018-07-31 11:30 | CP.PCM.PN ---
<Justin Humphrey - Last Filed: 07/31/18 11:32> Subjective - Date & Time of Evaluation Date of Evaluation: 07/31/18 Time of Evaluation: 11:29 - Subjective Subjective: Surgery- Dr. Bullock seen and examined at bedside. pain adequately controlled. admits to passing flatus and having BMs. She is tolerating diet. Patient admits to decreased PO intake, likely due to Hiatal hernia. Wound vac dressing changes every 3 days while inpatient. Will be changed today 07/30, then next change will be Wednesday 08/02. No complaints at this time. Objective - Vital Signs/Intake and Output Vital Signs (last 24 hours): Temp Pulse Resp BP Pulse Ox 98.1 F 87 18 94/53 L 95 07/31/18 08:03 07/31/18 08:03 07/31/18 08:03 07/31/18 05:25 07/31/18 08:03 - Medications Medications: Current Medications Albuterol/Ipratropium (Duoneb 3 Mg/0.5 Mg (3 Ml) Ud) 3 ml INH RQ6 PRN PRN Reason: Shortness of Breath Last Admin: 07/24/18 10:03 Dose: 3 ml Donepezil HCl (Aricept) 10 mg NG HS [facility] Last Admin: 07/30/18 21:17 Dose: 10 mg Enoxaparin Sodium (Lovenox) 40 mg SC DAILY [facility]; Protocol Last Admin: 07/31/18 09:07 Dose: 40 mg Trimethoprim/Sulfamethoxazole (360 mg/ Dextrose) 340 mls @ 226.667 mls/hr IVPB Q8 [facility]; Protocol Last Admin: 07/31/18 09:54 Dose: 226.667 mls/hr Ketorolac Tromethamine (Toradol) 30 mg IVP Q6 PRN PRN Reason: Pain, severe (8-10) Last Admin: 07/31/18 11:23 Dose: 30 mg Mirtazapine (Remeron) 30 mg PO HS [facility] Last Admin: 07/30/18 21:16 Dose: 30 mg Pantoprazole Sodium (Protonix Ec Tab) 20 mg PO DAILY [facility] Last Admin: 07/31/18 09:55 Dose: 20 mg Potassium Chloride (K-Dur 20 Meq Er Tab) 20 meq PO QOTHERDAY [facility] Last Admin: 07/31/18 09:06 Dose: 20 meq Pravastatin Sodium (Pravachol) 20 mg PO HS [facility] Last Admin: 07/30/18 21:16 Dose: 20 mg Vitamin B Complex/Vit C/Folic Acid (Nephro-Liliana) 1 tab PO DAILY [facility] Last Admin: 07/31/18 09:06 Dose: 1 tab - Labs Labs: 07/29/18 05:20 07/29/18 05:20 PT 14.9 Seconds (9.8-13.1) H 07/18/18 05:00 INR 1.3 07/18/18 05:00 APTT 25.6 Seconds (25.6-37.1) 07/18/18 05:00 Assessment and Plan - Assessment and Plan (Free Text) Assessment: 87 F s/p exploratory laparotomy POD#19 Plan: -Diet as tolerated - recommend Prostat and ensure for nutritional supplementation -Pain control -Replete electrolytes as needed -Wound Vac Wednesday 08/02 -Pending MANDEEP -Management as per primary -Clear for discharge from surgical standpoint -Discussed with Dr. Kobe Humphrey PGY2 <Wilder Bullock N - Last Filed: 08/05/18 17:29> Objective - Vital Signs/Intake and Output Vital Signs (last 24 hours): Temp Pulse Resp BP Pulse Ox 98.1 F 84 18 103/58 L 94 L 08/05/18 16:22 08/05/18 16:22 08/05/18 16:22 08/05/18 16:22 08/05/18 16:22 - Medications Medications: Current Medications Albuterol/Ipratropium (Duoneb 3 Mg/0.5 Mg (3 Ml) Ud) 3 ml INH RQ6 PRN PRN Reason: Shortness of Breath Last Admin: 07/24/18 10:03 Dose: 3 ml Capsaicin (Trixaicin Cream) 1 applic TOP Q6 [facility] Last Admin: 08/05/18 15:16 Dose: 1 applic Dimethicone (Proshield Plus Skin Protectant) 1 applic TOP Q8 PRN PRN Reason: Incontinece Last Admin: 08/05/18 15:16 Dose: 1 applic Donepezil HCl (Aricept) 10 mg NG HS [facility] Last Admin: 08/04/18 22:46 Dose: 10 mg Enoxaparin Sodium (Lovenox) 40 mg SC DAILY [facility]; Protocol Last Admin: 08/05/18 10:17 Dose: 40 mg Trimethoprim/Sulfamethoxazole (360 mg/ Dextrose) 340 mls @ 226.667 mls/hr IVPB Q8 [facility]; Protocol Last Admin: 08/05/18 09:43 Dose: 226.667 mls/hr Acyclovir 600 mg/ Sodium (Chloride) 100 mls @ 100 mls/hr IV Q8 [facility]; Protocol Stop: 08/06/18 21:00 Last Admin: 08/04/18 09:50 Dose: 100 mls/hr Ketorolac Tromethamine (Toradol) 30 mg IVP Q6 PRN PRN Reason: Pain, severe (8-10) Last Admin: 08/01/18 11:07 Dose: 30 mg Mirtazapine (Remeron) 30 mg PO HS [facility] Last Admin: 08/04/18 22:47 Dose: 30 mg Pantoprazole Sodium (Protonix Ec Tab) 20 mg PO DAILY [facility] Last Admin: 08/05/18 10:16 Dose: Not Given Pravastatin Sodium (Pravachol) 20 mg PO HS [facility] Last Admin: 08/04/18 22:47 Dose: 20 mg Quetiapine Fumarate (Seroquel) 25 mg PO HS [facility] Last Admin: 08/04/18 22:46 Dose: 25 mg Ranitidine HCl (Zantac Soln 5ml) 300 mg PO HS [facility] Last Admin: 08/04/18 22:47 Dose: 300 mg - Labs Labs: 08/04/18 04:30 08/05/18 12:10 PT 14.9 Seconds (9.8-13.1) H 07/18/18 05:00 INR 1.3 07/18/18 05:00 APTT 25.6 Seconds (25.6-37.1) 07/18/18 05:00 Assessment and Plan - Assessment and Plan (Free Text) Plan: All medical record entries made by the resident were at my direction. I have reviewed the chart and agree that the record accurately reflects my personal performance of the history, physical exam, and medical decision making.
[2018-07-31] MEDS ORDERED: Sodium Chloride 0.9% 500 ML IV SCH (15:30)
[2018-07-31] MEDS: Pravastatin Sodium 20 MG TAB PO SCH (21:27)
[2018-08-01] MEDS: SULFAMETHOXAZOLE IVPB SCH ×4 (00:06→17:15)
[2018-08-01] MEDS: DEXTROSE 5% IVPB SCH ×4 (00:06→17:15)
[2018-08-01] MEDS: TRIMETHOPRIM IVPB SCH ×4 (00:06→17:15)
[2018-08-01] MEDS: WATER IVPB SCH ×4 (00:06→17:15)
[2018-08-01 06:54] LABS: BASO # 0.1 K/uL (0.0-0.2); BASO % 1.3 % (0.0-2.0); EOS # 0.2 K/uL (0.0-0.7); HEMOGLOBIN 8.9 g/dL (12.0-16.0); LYMPH # 1.2 K/uL (1.0-4.3); LYMPH % 25.9 % (20.0-40.0); MEAN CELL VOLUME 91.6 fl (81.0-99.0); MEAN CORPUSCULAR HEMOGLOBIN 30.2 pg (27.0-31.0); MEAN PLATELET VOLUME 8.3 fl (7.2-11.7); MONO # 0.6 K/uL (0.0-0.8); NEUT # 2.6 K/uL (1.8-7.0); NEUT % 55.8 % (50.0-75.0); RBC 2.94 Mil/uL (3.80-5.20); RED CELL DISTRIBUTION WIDTH 15.2 % (11.5-14.5); WHITE BLOOD COUNT 4.7 K/uL (4.8-10.8)
[2018-08-01 07:28] LABS: BLOOD UREA NITROGEN 11 mg/dl (7-17); CALCIUM 8.4 mg/dL (8.4-10.2); GFR NON-AFRICAN AMERICAN > 60
--- NOTE | 2018-08-01 08:14 | CP.PCM.PN ---
<Emily Colvin - Last Filed: 08/03/18 10:56> Subjective - Date & Time of Evaluation Date of Evaluation: 08/01/18 Time of Evaluation: 07:15 - Subjective Subjective: General Surgery progress note for Dr. Mendez Patient seen and examined this am at bedside. Patient states she is feeling well and denies abdominal pain. She endorses low appetite but denies n/v. She is passing gas and having small BMs. we discussed maintaining her PO intake and working with physical therapy and she agreed. Wound vac in place with good seal. will be changed tomorrow morning. Objective - Vital Signs/Intake and Output Vital Signs (last 24 hours): Temp Pulse Resp BP Pulse Ox 97.7 F 85 18 96/56 L 97 08/01/18 07:47 08/01/18 07:47 08/01/18 07:47 08/01/18 07:47 08/01/18 07:47 - Medications Medications: Current Medications Albuterol/Ipratropium (Duoneb 3 Mg/0.5 Mg (3 Ml) Ud) 3 ml INH RQ6 PRN PRN Reason: Shortness of Breath Last Admin: 07/24/18 10:03 Dose: 3 ml Donepezil HCl (Aricept) 10 mg NG HS [facility] Last Admin: 07/31/18 21:27 Dose: 10 mg Enoxaparin Sodium (Lovenox) 40 mg SC DAILY [facility]; Protocol Last Admin: 07/31/18 09:07 Dose: 40 mg Trimethoprim/Sulfamethoxazole (360 mg/ Dextrose) 340 mls @ 226.667 mls/hr IVPB Q8 [facility]; Protocol Last Admin: 08/01/18 00:06 Dose: 226.667 mls/hr Ketorolac Tromethamine (Toradol) 30 mg IVP Q6 PRN PRN Reason: Pain, severe (8-10) Last Admin: 07/31/18 11:23 Dose: 30 mg Mirtazapine (Remeron) 30 mg PO HS [facility] Last Admin: 07/31/18 21:27 Dose: 30 mg Pantoprazole Sodium (Protonix Ec Tab) 20 mg PO DAILY [facility] Last Admin: 07/31/18 09:55 Dose: 20 mg Potassium Chloride (K-Dur 20 Meq Er Tab) 20 meq PO QOTHERDAY [facility] Last Admin: 07/31/18 09:06 Dose: 20 meq Pravastatin Sodium (Pravachol) 20 mg PO HS [facility] Last Admin: 07/31/18 21:27 Dose: 20 mg Vitamin B Complex/Vit C/Folic Acid (Nephro-Liliana) 1 tab PO DAILY [facility] Last Admin: 07/31/18 09:06 Dose: 1 tab - Labs Labs: 08/01/18 05:00 08/01/18 05:00 PT 14.9 Seconds (9.8-13.1) H 07/18/18 05:00 INR 1.3 07/18/18 05:00 APTT 25.6 Seconds (25.6-37.1) 07/18/18 05:00 - Constitutional Appears: Well, No Acute Distress, Chronically Ill - Head Exam Head Exam: ATRAUMATIC, NORMOCEPHALIC - Eye Exam Eye Exam: EOMI. absent: Scleral icterus - ENT Exam ENT Exam: Mucous Membranes Moist - Respiratory Exam Respiratory Exam: NORMAL BREATHING PATTERN - Cardiovascular Exam Cardiovascular Exam: REGULAR RHYTHM - GI/Abdominal Exam GI & Abdominal Exam: Soft. absent: Guarding, Tenderness Additional comments: incisions cdi, zeke in place - Neurological Exam Neurological Exam: Alert, Awake, Oriented x3 - Psychiatric Exam Psychiatric exam: Normal Affect, Normal Mood - Skin Skin Exam: Dry, Intact, Normal Color, Warm Assessment and Plan - Assessment and Plan (Free Text) Assessment: 87 F s/p exploratory laparotomy POD#20 Plan: -encourage PO intake, Diet as tolerated -continue Prostat and ensure for nutritional supplementation -Pain control -Replete electrolytes as needed -Wound Vac change Wednesday 08/02 -Pending MANDEEP vs VNS -Management as per primary -Clear for discharge from surgical standpoint - continue working with PT -Discussed with Dr. Bullock <Wilder Bullock - Last Filed: 08/05/18 17:11> Objective - Vital Signs/Intake and Output Vital Signs (last 24 hours): Temp Pulse Resp BP Pulse Ox 98.1 F 84 18 103/58 L 94 L 08/05/18 16:22 08/05/18 16:22 08/05/18 16:22 08/05/18 16:22 08/05/18 16:22 - Medications Medications: Current Medications Albuterol/Ipratropium (Duoneb 3 Mg/0.5 Mg (3 Ml) Ud) 3 ml INH RQ6 PRN PRN Reason: Shortness of Breath Last Admin: 07/24/18 10:03 Dose: 3 ml Capsaicin (Trixaicin Cream) 1 applic TOP Q6 [facility] Last Admin: 08/05/18 15:16 Dose: 1 applic Dimethicone (Proshield Plus Skin Protectant) 1 applic TOP Q8 PRN PRN Reason: Incontinece Last Admin: 08/05/18 15:16 Dose: 1 applic Donepezil HCl (Aricept) 10 mg NG HS [facility] Last Admin: 08/04/18 22:46 Dose: 10 mg Enoxaparin Sodium (Lovenox) 40 mg SC DAILY [facility]; Protocol Last Admin: 08/05/18 10:17 Dose: 40 mg Trimethoprim/Sulfamethoxazole (360 mg/ Dextrose) 340 mls @ 226.667 mls/hr IVPB Q8 [facility]; Protocol Last Admin: 08/05/18 09:43 Dose: 226.667 mls/hr Acyclovir 600 mg/ Sodium (Chloride) 100 mls @ 100 mls/hr IV Q8 [facility]; Protocol Stop: 08/06/18 21:00 Last Admin: 08/04/18 09:50 Dose: 100 mls/hr Ketorolac Tromethamine (Toradol) 30 mg IVP Q6 PRN PRN Reason: Pain, severe (8-10) Last Admin: 08/01/18 11:07 Dose: 30 mg Mirtazapine (Remeron) 30 mg PO HS [facility] Last Admin: 08/04/18 22:47 Dose: 30 mg Pantoprazole Sodium (Protonix Ec Tab) 20 mg PO DAILY [facility] Last Admin: 08/05/18 10:16 Dose: Not Given Pravastatin Sodium (Pravachol) 20 mg PO HS [facility] Last Admin: 08/04/18 22:47 Dose: 20 mg Quetiapine Fumarate (Seroquel) 25 mg PO HS [facility] Last Admin: 08/04/18 22:46 Dose: 25 mg Ranitidine HCl (Zantac Soln 5ml) 300 mg PO HS [facility] Last Admin: 08/04/18 22:47 Dose: 300 mg - Labs Labs: 08/04/18 04:30 08/05/18 12:10 PT 14.9 Seconds (9.8-13.1) H 07/18/18 05:00 INR 1.3 07/18/18 05:00 APTT 25.6 Seconds (25.6-37.1) 07/18/18 05:00 Assessment and Plan - Assessment and Plan (Free Text) Plan: All medical record entries made by the resident were at my direction. I have reviewed the chart and agree that the record accurately reflects my personal performance of the history, physical exam, and medical decision making.
--- NOTE | 2018-08-01 08:25 | CP.PCM.PN ---
Subjective - Date & Time of Evaluation Date of Evaluation: 08/01/18 Time of Evaluation: 08:55 - Subjective Subjective: Patient was seen and examined this morning at bedside with attending, Dr. Orozco. Patient states she feels weak, and has very poor appetite. Has had intermittent stomach discomfort associated with nausea without vomiting which improves with protonix. Afebrile. Systolic blood pressure continues to be mostly in the low 90s. Denies chest pain, SOB, vomiting. Passing gas and having bowel movements as per nurse report. Patient is very forgetful. Seen and re-evaluated by Cardiology, Dr. Mehran Barone, this morning for persistent hypotension. Recommended to repeat urinalysis to rule out any significant proteinuria. Objective - Vital Signs/Intake and Output Vital Signs (last 24 hours): Temp Pulse Resp BP Pulse Ox 97.7 F 85 18 96/56 L 97 08/01/18 07:47 08/01/18 07:47 08/01/18 07:47 08/01/18 07:47 08/01/18 07:47 - Medications Medications: Current Medications Albuterol/Ipratropium (Duoneb 3 Mg/0.5 Mg (3 Ml) Ud) 3 ml INH RQ6 PRN PRN Reason: Shortness of Breath Last Admin: 07/24/18 10:03 Dose: 3 ml Donepezil HCl (Aricept) 10 mg NG HS [facility] Last Admin: 07/31/18 21:27 Dose: 10 mg Enoxaparin Sodium (Lovenox) 40 mg SC DAILY [facility]; Protocol Last Admin: 07/31/18 09:07 Dose: 40 mg Trimethoprim/Sulfamethoxazole (360 mg/ Dextrose) 340 mls @ 226.667 mls/hr IVPB Q8 [facility]; Protocol Last Admin: 08/01/18 00:06 Dose: 226.667 mls/hr Ketorolac Tromethamine (Toradol) 30 mg IVP Q6 PRN PRN Reason: Pain, severe (8-10) Last Admin: 07/31/18 11:23 Dose: 30 mg Mirtazapine (Remeron) 30 mg PO HS [facility] Last Admin: 07/31/18 21:27 Dose: 30 mg Pantoprazole Sodium (Protonix Ec Tab) 20 mg PO DAILY [facility] Last Admin: 07/31/18 09:55 Dose: 20 mg Potassium Chloride (K-Dur 20 Meq Er Tab) 20 meq PO QOTHERDAY [facility] Last Admin: 07/31/18 09:06 Dose: 20 meq Pravastatin Sodium (Pravachol) 20 mg PO HS [facility] Last Admin: 07/31/18 21:27 Dose: 20 mg Vitamin B Complex/Vit C/Folic Acid (Nephro-Lliiana) 1 tab PO DAILY [facility] Last Admin: 07/31/18 09:06 Dose: 1 tab - Labs Labs: 08/01/18 05:00 08/01/18 05:00 PT 14.9 Seconds (9.8-13.1) H 07/18/18 05:00 INR 1.3 07/18/18 05:00 APTT 25.6 Seconds (25.6-37.1) 07/18/18 05:00 - Skin Additional comments: Constitutional Appears: Non-toxic, No Acute Distress - ENT Exam ENT Exam: Mucous Membranes Dry - Respiratory Exam Respiratory Exam: Clear to Ausculation Bilateral (upper/middle lungs field, slightly decreased in lower lobes), NORMAL BREATHING PATTERN - Cardiovascular Exam Cardiovascular Exam: REGULAR RHYTHM, +S1, +S2 - GI/Abdominal Exam GI & Abdominal Exam: Soft, Normal Bowel Sounds. absent: Guarding, Rigid, Tenderness Additional comments: Wound Vac in placed - Extremities Exam Extremities Exam: Pedal Edema. absent: Calf Tenderness Additional comments: Edema 3+ of lower extremities, however improving - Neurological Exam Neurological Exam: Alert, Awake, Oriented x3 Assessment and Plan - Assessment and Plan (Free Text) Assessment: 87 F who presents with septic shock, acute respiratory failure, elevated lactate, s/p exploratory laparotomy, lysis of adhesion, and repair of enterotomy x2 for SBO POD 20. Postoperatively her oral intake has been poor and her nutritional status has also been poor resulting in severe hypoalbuminemia. Patient with a fair amount of anasarca and has a systolic blood pressure mostly in the low 90s. Plan: Stenotrophomonas maltophilia culture infection in Bronchial culture -Bronchial culture Stenotrophomonas maltophilia noted in final report -c/w Bactrim 15 mg/kg Q8 h as per ID recommendations Day #4 -per ID recs will complete 10 days of Bactrim (08/07/18) -f/u ID recommendations Deconditioning/weakness/Hypoalbuminuria -c/w Vitamin B complex -calories count -Disability Program Navigator consult for nutritional support and supplementation -start Pros-tat -c/w Ensure -CMP/Mag/Phos this morning WNL -f/u repeat UA to r/o significant proteinuria -promote oral intake -GFR >60, no proteinuria seen in last UA done on admission -c/w physical therapy Abdominal open wound s/p Small bowel obstruction/ s/p ex laparotomy POD 20 -Wound vac dressing changes every 3 days while inpatient by surgical team. Last changed 07/30/18. Scheduled Wound Vac for Wednesday 08/02. -completed 14 days of empiric meropnem and flagyl for intra-abd Infection as per ID recs -completed 8 days of vanco as per ID recs Small bowel obstruction/ s/p ex laparotomy POD 20 - General surgery, Dr. Bullock on board - Pain management - Tolerating PO - encouraged incentive spirometry and OOB -Clear for discharge from surgical standpoint Bilateral Pleural effusion b/l Atelectasis - Repeat chest CT: stable pleural effusions, bibasilar atelectasis - Pulmonology consult, recs appreciated - s/p flexible broncho 07/25/18 -Bronchial culture Stenotrophomonas maltophilia noted in final report -c/w Bactrim 15 mg/kg Q8 h as per ID recommendations Day #4 -on NC at 2 lpm -respiratory therapy -Encouraged PT and OOB -continue with incentive spirometer S/p Non-Q wave myocardial infarction probably secondary to a brief period of hypotension Cardiology was consulted, Dr. Barone. h/o HTN -BP in low normal levels without medication, likely 2/2 hypoalbuminemia 2/2 poor nutritional status 2/2 Poor PO intake -recalled Cardiology for re-evaluation. Recs are appreciated -f/u repeat UA to r/o significant proteinuria -c/w BP monitor Hiatal hernia/GERD -c/w protonix 20 mg PO daily -start Ranitidine 300 mg HS Hyperlipidemia - resume pravastatin 20 mg po hs Cognitive impairment - aricept 10 mg HS Insomnia/anxiety - Mirtazapine 30 mg PO HS DVT prophylaxis - Lovenox 40 mg sc Dispo: possible MANDEEP
[2018-08-01] MEDS: Pantoprazole 20 mg EC Tab PO SCH (09:20)
[2018-08-01] MEDS: Multivitamin Vitamin B Complex (Nephro-Vite) Tab PO SCH (09:20)
[2018-08-01] MEDS: Enoxaparin 40 mg Syringe SC SCH (09:20)
--- NOTE | 2018-08-01 10:15 | CP.PCM.PN ---
Subjective - Date & Time of Evaluation Date of Evaluation: 08/01/18 Time of Evaluation: 10:05 - Subjective Subjective: . The patient was examined with the resident. Patient's niece was in attendance. The patient appears alert and fairly oriented and complains of a significant degree of anorexia. Postoperatively her oral intake has been poor and her nutritional status has also been poor resulting in severe hypoalbuminemia. At this point she displays a fair amount of anasarca and has a systolic blood pressure mostly in the low 90s. Her serum albumin is slightly improved from 2.1g% to 2.4 g% couple of days back. Her last urinalysis did not reveal any evidence of proteinuria Telemetry shows steady sinus rhythm. I have discussed her nutrition with the paunch trimmer and with the resident as well as the patient's niece. I have emphasized an improvement in protein intake and the patient has been started on Ensure. She remains hemodynamically stable. I have requested a repeat urinalysis to rule out any significant proteinuria. Objective - Vital Signs/Intake and Output Vital Signs (last 24 hours): Temp Pulse Resp BP Pulse Ox 97.7 F 85 18 96/56 L 97 08/01/18 07:47 08/01/18 07:47 08/01/18 07:47 08/01/18 07:47 08/01/18 07:47 - Medications Medications: Current Medications Albuterol/Ipratropium (Duoneb 3 Mg/0.5 Mg (3 Ml) Ud) 3 ml INH RQ6 PRN PRN Reason: Shortness of Breath Last Admin: 07/24/18 10:03 Dose: 3 ml Donepezil HCl (Aricept) 10 mg NG HS [facility] Last Admin: 07/31/18 21:27 Dose: 10 mg Enoxaparin Sodium (Lovenox) 40 mg SC DAILY [facility]; Protocol Last Admin: 08/01/18 09:20 Dose: 40 mg Trimethoprim/Sulfamethoxazole (360 mg/ Dextrose) 340 mls @ 226.667 mls/hr IVPB Q8 [facility]; Protocol Last Admin: 08/01/18 00:06 Dose: 226.667 mls/hr Ketorolac Tromethamine (Toradol) 30 mg IVP Q6 PRN PRN Reason: Pain, severe (8-10) Last Admin: 07/31/18 11:23 Dose: 30 mg Mirtazapine (Remeron) 30 mg PO HS [facility] Last Admin: 07/31/18 21:27 Dose: 30 mg Pantoprazole Sodium (Protonix Ec Tab) 20 mg PO DAILY [facility] Last Admin: 08/01/18 09:20 Dose: 20 mg Potassium Chloride (K-Dur 20 Meq Er Tab) 20 meq PO QOTHERDAY [facility] Last Admin: 07/31/18 09:06 Dose: 20 meq Pravastatin Sodium (Pravachol) 20 mg PO HS [facility] Last Admin: 07/31/18 21:27 Dose: 20 mg Vitamin B Complex/Vit C/Folic Acid (Nephro-Liliana) 1 tab PO DAILY [facility] Last Admin: 08/01/18 09:20 Dose: 1 tab - Labs Labs: 08/01/18 05:00 08/01/18 05:00 PT 14.9 Seconds (9.8-13.1) H 07/18/18 05:00 INR 1.3 07/18/18 05:00 APTT 25.6 Seconds (25.6-37.1) 07/18/18 05:00
[2018-08-01] MEDS: Pravastatin Sodium 20 MG TAB PO SCH (22:00)
[2018-08-01] MEDS: raNITIdine HCl 150 mg/10 ml Soln Cup PO SCH (22:02)
[2018-08-02 00:52] LABS: SQUAMOUS EPITHIAL 1 /hpf (0-5); URINE BILIRUBIN NEGATIVE (NEGATIVE); URINE BLOOD NEGATIVE (NEGATIVE); URINE CLARITY CLOUDY (Clear); URINE COLOR YELLOW (YELLOW); URINE GLUCOSE (UA) NEG (NEGATIVE); URINE HYALINE CAST 0-2 /hpf (0-2); URINE LEUKOCYTE ESTERASE NEG Leu/uL (Negative); URINE PROTEIN NEGATIVE (NEGATIVE); URINE UROBILINOGEN 0.2-1.0 mg/dL (0.2-1.0)
[2018-08-02] MEDS: TRIMETHOPRIM IVPB SCH ×3 (01:42→17:02)
[2018-08-02] MEDS: WATER IVPB SCH ×3 (01:42→17:02)
[2018-08-02] MEDS: DEXTROSE 5% IVPB SCH ×3 (01:42→17:02)
[2018-08-02] MEDS: SULFAMETHOXAZOLE IVPB SCH ×3 (01:42→17:02)
--- NOTE | 2018-08-02 08:54 | CP.PCM.PN ---
<Patti Higginbotham - Last Filed: 08/02/18 10:08> Subjective - Date & Time of Evaluation Date of Evaluation: 08/02/18 Time of Evaluation: 08:54 - Subjective Subjective: General Surgery Progress Note: Dr. Mendez 87 year old female patient seen and examined this am. Patient resting comfortably and in NAD. She denies any pain at this time. Endorses +BM, +flatus, however reports decreased appetite. Denies nausea/vomiting/fever/shortness of breath/chest pain. Objective - Vital Signs/Intake and Output Vital Signs (last 24 hours): Temp Pulse Resp BP Pulse Ox 97.9 F 83 18 103/61 94 L 08/02/18 07:49 08/02/18 07:49 08/02/18 07:49 08/02/18 07:49 08/02/18 07:49 - Medications Medications: Current Medications Albuterol/Ipratropium (Duoneb 3 Mg/0.5 Mg (3 Ml) Ud) 3 ml INH RQ6 PRN PRN Reason: Shortness of Breath Last Admin: 07/24/18 10:03 Dose: 3 ml Donepezil HCl (Aricept) 10 mg NG HS [facility] Last Admin: 08/01/18 22:00 Dose: 10 mg Enoxaparin Sodium (Lovenox) 40 mg SC DAILY [facility]; Protocol Last Admin: 08/01/18 09:20 Dose: 40 mg Trimethoprim/Sulfamethoxazole (360 mg/ Dextrose) 340 mls @ 226.667 mls/hr IVPB Q8 [facility]; Protocol Last Admin: 08/02/18 01:42 Dose: 226.667 mls/hr Ketorolac Tromethamine (Toradol) 30 mg IVP Q6 PRN PRN Reason: Pain, severe (8-10) Last Admin: 08/01/18 11:07 Dose: 30 mg Mirtazapine (Remeron) 30 mg PO HS [facility] Last Admin: 08/01/18 22:00 Dose: 30 mg Pantoprazole Sodium (Protonix Ec Tab) 20 mg PO DAILY [facility] Last Admin: 08/01/18 09:20 Dose: 20 mg Pravastatin Sodium (Pravachol) 20 mg PO HS [facility] Last Admin: 08/01/18 22:00 Dose: 20 mg Ranitidine HCl (Zantac Soln 5ml) 300 mg PO HS [facility] Last Admin: 08/01/18 22:02 Dose: 300 mg Vitamin B Complex/Vit C/Folic Acid (Nephro-Liliana) 1 tab PO DAILY [facility] Last Admin: 08/01/18 09:20 Dose: 1 tab - Labs Labs: 08/01/18 05:00 08/01/18 05:00 PT 14.9 Seconds (9.8-13.1) H 07/18/18 05:00 INR 1.3 07/18/18 05:00 APTT 25.6 Seconds (25.6-37.1) 07/18/18 05:00 - Constitutional Appears: Non-toxic, No Acute Distress - Head Exam Head Exam: ATRAUMATIC, NORMOCEPHALIC - Eye Exam Eye Exam: Normal appearance - ENT Exam ENT Exam: Mucous Membranes Moist - GI/Abdominal Exam GI & Abdominal Exam: Distended, Soft Additional comments: Wound vac in place, running properly at this time - Extremities Exam Extremities Exam: absent: Calf Tenderness - Back Exam Back Exam: absent: CVA tenderness (L), CVA tenderness (R) - Neurological Exam Neurological Exam: Alert, Awake, Oriented x3 - Psychiatric Exam Psychiatric exam: Normal Affect, Normal Mood Assessment and Plan - Assessment and Plan (Free Text) Assessment: 87 year old female POD#21 exploratory laparotomy Plan: - Diet as tolerated - C/w PT - C/w with pain control - Wound vac to be changed today - Discharge planning to [facility] - Management as per primary - Further recommendations per Dr. Kobe Higginbotham, PGY1 <Wilder Bullock - Last Filed: 08/05/18 17:23> Objective - Vital Signs/Intake and Output Vital Signs (last 24 hours): Temp Pulse Resp BP Pulse Ox 98.1 F 84 18 103/58 L 94 L 08/05/18 16:22 08/05/18 16:22 08/05/18 16:22 08/05/18 16:22 08/05/18 16:22 - Medications Medications: Current Medications Albuterol/Ipratropium (Duoneb 3 Mg/0.5 Mg (3 Ml) Ud) 3 ml INH RQ6 PRN PRN Reason: Shortness of Breath Last Admin: 07/24/18 10:03 Dose: 3 ml Capsaicin (Trixaicin Cream) 1 applic TOP Q6 [facility] Last Admin: 08/05/18 15:16 Dose: 1 applic Dimethicone (Proshield Plus Skin Protectant) 1 applic TOP Q8 PRN PRN Reason: Incontinece Last Admin: 08/05/18 15:16 Dose: 1 applic Donepezil HCl (Aricept) 10 mg NG HS [facility] Last Admin: 08/04/18 22:46 Dose: 10 mg Enoxaparin Sodium (Lovenox) 40 mg SC DAILY [facility]; Protocol Last Admin: 08/05/18 10:17 Dose: 40 mg Trimethoprim/Sulfamethoxazole (360 mg/ Dextrose) 340 mls @ 226.667 mls/hr IVPB Q8 [facility]; Protocol Last Admin: 08/05/18 09:43 Dose: 226.667 mls/hr Acyclovir 600 mg/ Sodium (Chloride) 100 mls @ 100 mls/hr IV Q8 [facility]; Protocol Stop: 08/06/18 21:00 Last Admin: 08/04/18 09:50 Dose: 100 mls/hr Ketorolac Tromethamine (Toradol) 30 mg IVP Q6 PRN PRN Reason: Pain, severe (8-10) Last Admin: 08/01/18 11:07 Dose: 30 mg Mirtazapine (Remeron) 30 mg PO HS [facility] Last Admin: 08/04/18 22:47 Dose: 30 mg Pantoprazole Sodium (Protonix Ec Tab) 20 mg PO DAILY [facility] Last Admin: 08/05/18 10:16 Dose: Not Given Pravastatin Sodium (Pravachol) 20 mg PO HS [facility] Last Admin: 08/04/18 22:47 Dose: 20 mg Quetiapine Fumarate (Seroquel) 25 mg PO HS [facility] Last Admin: 08/04/18 22:46 Dose: 25 mg Ranitidine HCl (Zantac Soln 5ml) 300 mg PO HS [facility] Last Admin: 08/04/18 22:47 Dose: 300 mg - Labs Labs: 08/04/18 04:30 08/05/18 12:10 PT 14.9 Seconds (9.8-13.1) H 07/18/18 05:00 INR 1.3 07/18/18 05:00 APTT 25.6 Seconds (25.6-37.1) 07/18/18 05:00 Assessment and Plan - Assessment and Plan (Free Text) Plan: All medical record entries made by the resident were at my direction. I have reviewed the chart and agree that the record accurately reflects my personal performance of the history, physical exam, and medical decision making.
[2018-08-02] MEDS: Pantoprazole 20 mg EC Tab PO SCH (09:55)
[2018-08-02] MEDS: Enoxaparin 40 mg Syringe SC SCH (09:55)
[2018-08-02] MEDS: Multivitamin Vitamin B Complex (Nephro-Vite) Tab PO SCH (09:56)
--- NOTE | 2018-08-02 10:32 | CP.PCM.PN ---
Subjective - Date & Time of Evaluation Date of Evaluation: 08/02/18 Time of Evaluation: 10:32 - Subjective Subjective: ID Note- Pt. seen and examined today. afebrille no new events overnight path reported today that BAL washings had Possible herpes inclusion bodies ( as per report) Objective - Vital Signs/Intake and Output Vital Signs (last 24 hours): Temp Pulse Resp BP Pulse Ox 97.9 F 83 18 103/61 94 L 08/02/18 07:49 08/02/18 07:49 08/02/18 07:49 08/02/18 07:49 08/02/18 07:49 - Medications Medications: Current Medications Albuterol/Ipratropium (Duoneb 3 Mg/0.5 Mg (3 Ml) Ud) 3 ml INH RQ6 PRN PRN Reason: Shortness of Breath Last Admin: 07/24/18 10:03 Dose: 3 ml Donepezil HCl (Aricept) 10 mg NG HS [facility] Last Admin: 08/01/18 22:00 Dose: 10 mg Enoxaparin Sodium (Lovenox) 40 mg SC DAILY [facility]; Protocol Last Admin: 08/02/18 09:55 Dose: 40 mg Trimethoprim/Sulfamethoxazole (360 mg/ Dextrose) 340 mls @ 226.667 mls/hr IVPB Q8 [facility]; Protocol Last Admin: 08/02/18 09:55 Dose: 226.667 mls/hr Ketorolac Tromethamine (Toradol) 30 mg IVP Q6 PRN PRN Reason: Pain, severe (8-10) Last Admin: 08/01/18 11:07 Dose: 30 mg Mirtazapine (Remeron) 30 mg PO HS [facility] Last Admin: 08/01/18 22:00 Dose: 30 mg Pantoprazole Sodium (Protonix Ec Tab) 20 mg PO DAILY [facility] Last Admin: 08/02/18 09:55 Dose: 20 mg Pravastatin Sodium (Pravachol) 20 mg PO HS [facility] Last Admin: 08/01/18 22:00 Dose: 20 mg Ranitidine HCl (Zantac Soln 5ml) 300 mg PO HS [facility] Last Admin: 08/01/18 22:02 Dose: 300 mg Vitamin B Complex/Vit C/Folic Acid (Nephro-Liliana) 1 tab PO DAILY [facility] Last Admin: 08/02/18 09:56 Dose: 1 tab - Labs Labs: - Additional Findings Additional findings: Constitutional Appears: No Acute Distress Additional comments: awake and alert - Head Exam Head Exam: ATRAUMATIC - Eye Exam Eye Exam: EOMI, PERRL - Neck Exam Neck exam: Positive for: Full Rom - Respiratory Exam Additional comments: breath sounds heard b/l no wheezing slightly decreased at left base - Cardiovascular Exam Cardiovascular Exam: RRR, +S1, +S2 - GI/Abdominal Exam GI & Abdominal Exam: Soft Additional comments: mid lower abdomen surgical site with wound vac in place draining minimal serosanguinous fluid no erythema no tenderness soft - Extremities Exam Extremities exam: Positive for: normal inspection except 1+ LE edema B/L - Neurological Exam Neurological exam: AAO x 3 today. Microbiology 07/25/18 12:46 Other: Please Indicate Fungal Culture - Preliminary 07/25/18 12:46 Other: Please Indicate Mycobacterial Culture - Preliminary 07/25/18 11:00 Bronchial Washings Bronchial Culture - Final Stenotrophomonas Maltophilia 07/21/18 20:12 Naris MRSA Culture (Admit) - Final MRSA NOT DETECTED 07/14/18 17:00 Blood-Venous Blood Culture - Final NO GROWTH AFTER 5 DAYS 07/14/18 17:00 Blood-Venous Gram Stain - Final TEST NOT PERFORMED 07/14/18 15:58 Blood-Venous Blood Culture - Final NO GROWTH AFTER 5 DAYS 07/14/18 15:58 Blood-Venous Gram Stain - Final TEST NOT PERFORMED 07/13/18 16:00 Blood-Venous Blood Culture - Final NO GROWTH AFTER 5 DAYS 07/13/18 16:00 Blood-Venous Gram Stain - Final TEST NOT PERFORMED 07/13/18 17:00 Blood-Venous Blood Culture - Final NO GROWTH AFTER 5 DAYS 07/13/18 17:00 Blood-Venous Gram Stain - Final TEST NOT PERFORMED 07/14/18 16:00 Sputum Gram Stain - Final 07/14/18 16:00 Sputum Sputum Culture - Final No growth. 07/13/18 17:21 Urine,Elizondo Urine Culture - Final No Growth (<1,000 CFU/ML) 07/10/18 19:55 Urine Random Urine Culture - Final Gram Negative [place] Accession No. : [id number] Patient Name / ID : ROLANDO DIAZ D / [id number] Exam Date : 08/02/2018 09:26:52 ( Approved ) Study Comment : Sex / Age : F / 87Y Creator : Tirso Rowan MD Dictator : Tirso Rowan MD Loom Operator : Judicial Clerk : Tirso Rowan MD Approver2 : Report Date : 08/02/2018 10:49:01 My Comment : Date of service: 08/02/2018 HISTORY: pneumonia COMPARISON: Portable chest 07/25/2018 TECHNIQUE: 1 view obtained. FINDINGS: LUNGS: Right PICC unchanged in position. Left basilar opacity diminished likely reflecting decreased pleural effusion though diminished atelectasis or infiltrate is also possible. Right chest is clear. No pneumothorax bilaterally. PLEURA: As above. CARDIOVASCULAR: Calcific atherosclerotic changes are seen related to the thoracic aorta. Normal cardiac size. Borderline pulmonary vascular congestion. OSSEOUS STRUCTURES: No significant abnormalities. VISUALIZED UPPER ABDOMEN: Normal. OTHER FINDINGS: None. IMPRESSION: Borderline pulmonary vascular congestion. Diminishing left basilar opacity with trace residual effusion remaining. Right PICC unchanged. Assessment and Plan (1) Small bowel obstruction Status: Acute (2) Sepsis Status: Acute - Assessment and Plan (Free Text) Assessment: A/P- 87 year old female with multiple past medical history and s/p past hemicolectomy and reversal of colostomy who was admitted with abd . pain and found to have SBO and is POD #1 s/p Exploratory laparotomy, extenive lysis of adhesions, repair of enterotomies x 2, washout. clinically improved. afebrile leukocytosis has resolved now has mild leukopenia could be sec to bactrim. cxr improved as per report BAL cx- reported today stenotrophomonas ( light growth) blood cx- neg x 4 sputum cx- neg repeat urine cx- neg BAl path - ? HSV inclusion bodies plan- day #5 of bactrim for stenotrophomonas in BAL cx. advise 3-5 more days. monitor wbc while on bactrim. in light of this herpes like inclusion bodies reported in BAL path advise to start pt. on acylovir for short course for 5-7 days. 10mg/kg q8 hours. check HSV 1/2 IGG as well. completed 14 days of empiric meropnem and flagyl for intra-abd Infection. completed 8 days of vanco. wound vac management as per surgical team. All above d/w family practice team at length.
--- NOTE | 2018-08-02 10:54 | RAD ---
Date of service: 08/02/2018 HISTORY: pneumonia COMPARISON: Portable chest 07/25/2018 TECHNIQUE: 1 view obtained. FINDINGS: LUNGS: Right PICC unchanged in position. Left basilar opacity diminished likely reflecting decreased pleural effusion though diminished atelectasis or infiltrate is also possible. Right chest is clear. No pneumothorax bilaterally. PLEURA: As above. CARDIOVASCULAR: Calcific atherosclerotic changes are seen related to the thoracic aorta. Normal cardiac size. Borderline pulmonary vascular congestion. OSSEOUS STRUCTURES: No significant abnormalities. VISUALIZED UPPER ABDOMEN: Normal. OTHER FINDINGS: None. IMPRESSION: Borderline pulmonary vascular congestion. Diminishing left basilar opacity with trace residual effusion remaining. Right PICC unchanged.
--- NOTE | 2018-08-02 12:20 | CP.PCM.PN ---
Subjective - Date & Time of Evaluation Date of Evaluation: 08/02/18 Time of Evaluation: 12:16 - Subjective Subjective: Seen in telemetry this morning. Appears confused, claims no BM in three days. Nurse states BM this morning. Breathing comfortably, good oxygenation. Breath sounds are present bilaterally, diminished in LLs posteriorly. Bronchial breath sounds are still present in the left base. Repeat PCXR shows good improvement in left effusion, right is clear. There is likely some residual atelectasis at the left base which should clear with increased activity OOB. May be discharged from hospital at any time from a pulmonary point of view. Objective - Vital Signs/Intake and Output Vital Signs (last 24 hours): Temp Pulse Resp BP Pulse Ox 97.9 F 83 18 103/61 94 L 08/02/18 07:49 08/02/18 09:00 08/02/18 07:49 08/02/18 07:49 08/02/18 07:49 - Medications Medications: Current Medications Albuterol/Ipratropium (Duoneb 3 Mg/0.5 Mg (3 Ml) Ud) 3 ml INH RQ6 PRN PRN Reason: Shortness of Breath Last Admin: 07/24/18 10:03 Dose: 3 ml Donepezil HCl (Aricept) 10 mg NG HS [facility] Last Admin: 08/01/18 22:00 Dose: 10 mg Enoxaparin Sodium (Lovenox) 40 mg SC DAILY [facility]; Protocol Last Admin: 08/02/18 09:55 Dose: 40 mg Trimethoprim/Sulfamethoxazole (360 mg/ Dextrose) 340 mls @ 226.667 mls/hr IVPB Q8 [facility]; Protocol Last Admin: 08/02/18 09:55 Dose: 226.667 mls/hr Ketorolac Tromethamine (Toradol) 30 mg IVP Q6 PRN PRN Reason: Pain, severe (8-10) Last Admin: 08/01/18 11:07 Dose: 30 mg Mirtazapine (Remeron) 30 mg PO HS [facility] Last Admin: 08/01/18 22:00 Dose: 30 mg Pantoprazole Sodium (Protonix Ec Tab) 20 mg PO DAILY [facility] Last Admin: 08/02/18 09:55 Dose: 20 mg Pravastatin Sodium (Pravachol) 20 mg PO HS [facility] Last Admin: 08/01/18 22:00 Dose: 20 mg Ranitidine HCl (Zantac Soln 5ml) 300 mg PO HS [facility] Last Admin: 08/01/18 22:02 Dose: 300 mg Vitamin B Complex/Vit C/Folic Acid (Nephro-Liliana) 1 tab PO DAILY [facility] Last Admin: 08/02/18 09:56 Dose: 1 tab - Labs Labs: 08/01/18 05:00 08/01/18 05:00 PT 14.9 Seconds (9.8-13.1) H 07/18/18 05:00 INR 1.3 07/18/18 05:00 APTT 25.6 Seconds (25.6-37.1) 07/18/18 05:00 Assessment and Plan (1) Pleural effusion Status: Acute (2) Atelectasis Status: Acute (3) Acute respiratory insufficiency Status: Acute
--- NOTE | 2018-08-02 14:40 | CP.PCM.PN ---
Subjective - Date & Time of Evaluation Date of Evaluation: 08/02/18 Time of Evaluation: 08:25 - Subjective Subjective: Patient was seen and examined this morning at bedside with attending, Dr. Orozco. Still feeling weak, and has very poor appetite. Has had intermittent stomach discomfort associated with nausea without vomiting which improves with protonix. Afebrile. Systolic blood pressure continues to be mostly in the low, however improving. Going for repeat CXR this morning per Pulmonology recommendations. 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 Denies chest pain, SOB, vomiting. Passing gas and having bowel movements as per nurse report. Patient is very forgetful. Objective - Vital Signs/Intake and Output Vital Signs (last 24 hours): Temp Pulse Resp BP Pulse Ox 97.3 F L 80 18 104/68 94 L 08/02/18 12:00 08/02/18 14:24 08/02/18 12:00 08/02/18 12:00 08/02/18 14:24 - Medications Medications: Current Medications Albuterol/Ipratropium (Duoneb 3 Mg/0.5 Mg (3 Ml) Ud) 3 ml INH RQ6 PRN PRN Reason: Shortness of Breath Last Admin: 07/24/18 10:03 Dose: 3 ml Donepezil HCl (Aricept) 10 mg NG HS [facility] Last Admin: 08/01/18 22:00 Dose: 10 mg Enoxaparin Sodium (Lovenox) 40 mg SC DAILY [facility]; Protocol Last Admin: 08/02/18 09:55 Dose: 40 mg Trimethoprim/Sulfamethoxazole (360 mg/ Dextrose) 340 mls @ 226.667 mls/hr IVPB Q8 [facility]; Protocol Last Admin: 08/02/18 09:55 Dose: 226.667 mls/hr Acyclovir 680 mg/ Sodium (Chloride) 100 mls @ 100 mls/hr IV Q8 [facility]; Protocol Ketorolac Tromethamine (Toradol) 30 mg IVP Q6 PRN PRN Reason: Pain, severe (8-10) Last Admin: 08/01/18 11:07 Dose: 30 mg Mirtazapine (Remeron) 30 mg PO HS [facility] Last Admin: 08/01/18 22:00 Dose: 30 mg Pantoprazole Sodium (Protonix Ec Tab) 20 mg PO DAILY [facility] Last Admin: 08/02/18 09:55 Dose: 20 mg Pravastatin Sodium (Pravachol) 20 mg PO HS [facility] Last Admin: 08/01/18 22:00 Dose: 20 mg Ranitidine HCl (Zantac Soln 5ml) 300 mg PO HS [facility] Last Admin: 08/01/18 22:02 Dose: 300 mg Vitamin B Complex/Vit C/Folic Acid (Nephro-Liliana) 1 tab PO DAILY [facility] Last Admin: 08/02/18 09:56 Dose: 1 tab - Labs Labs: 08/01/18 05:00 08/01/18 05:00 PT 14.9 Seconds (9.8-13.1) H 07/18/18 05:00 INR 1.3 07/18/18 05:00 APTT 25.6 Seconds (25.6-37.1) 07/18/18 05:00 - Skin Additional comments: Constitutional Appears: Non-toxic, No Acute Distress - ENT Exam ENT Exam: Mucous Membranes Dry - Respiratory Exam Respiratory Exam: Clear to Ausculation Bilateral (upper/middle lungs field, slightly decreased in lower lobes), NORMAL BREATHING PATTERN - Cardiovascular Exam Cardiovascular Exam: REGULAR RHYTHM, +S1, +S2 - GI/Abdominal Exam GI & Abdominal Exam: Soft, Normal Bowel Sounds. absent: Guarding, Rigid, Tenderness Additional comments: Wound Vac in placed - Extremities Exam Extremities Exam: Pedal Edema. absent: Calf Tenderness Additional comments: Edema 3+ of lower extremities, stable - Neurological Exam Neurological Exam: Alert, Awake, Oriented x3 Assessment and Plan - Assessment and Plan (Free Text) Assessment: 87 F who presents with septic shock, acute respiratory failure, elevated lactate, s/p exploratory laparotomy, lysis of adhesion, and repair of enterotomy x2 for SBO POD 20. Postoperatively her oral intake has been poor and her nutritional status has also been poor resulting in severe hypoalbuminemia. Patient with a fair amount of anasarca and low BP. 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 Deconditioning/weakness/Hypoalbuminuria -c/w Vitamin B complex -calories count -Customer Response Representative consult for nutritional support and supplementation -start Pros-tat -c/w Ensure -CMP/Mag/Phos this morning WNL -repeat UA negative, no proteinuria -promote oral intake -GFR >60, no proteinuria seen in last UA done on admission -c/w physical therapy Leucopenia -Mild/ 4.7 -was WNL on admission -POssible 2/2 bactrim -f/u repeat CBC in am -if< 3000 will DC bactrim as per ID recommendations Abdominal open wound s/p Small bowel obstruction/ s/p ex laparotomy POD 21 -Wound vac dressing changes every 3 days while inpatient by surgical team. Last changed 08/02/18. -completed 14 days of empiric meropnem and flagyl for intra-abd Infection as per ID recs -completed 8 days of vanco as per ID recs Small bowel obstruction/ s/p ex laparotomy POD 21 - General surgery, Dr. Bullock on board - Pain management - Tolerating PO - encouraged incentive spirometry and OOB -Clear for discharge from surgical standpoint Bilateral Pleural effusion b/l Atelectasis - Repeat chest CT: stable pleural effusions, bibasilar atelectasis - Pulmonology consult, recs appreciated - s/p flexible broncho 07/25/18 -Bronchial culture Stenotrophomonas maltophilia noted in final report -c/w Bactrim 15 mg/kg Q8 h as per ID recommendations Day #5 -on NC at 2 lpm -respiratory therapy -Encouraged PT and OOB -continue with incentive spirometer S/p Non-Q wave myocardial infarction probably secondary to a brief period of hypotension Cardiology was consulted, Dr. Barone. h/o HTN -BP in low normal levels without medication, likely 2/2 hypoalbuminemia 2/2 poor nutritional status 2/2 Poor PO intake -recalled Cardiology for re-evaluation. Recs are appreciated -f/u repeat UA to r/o significant proteinuria -c/w BP monitor Hiatal hernia/GERD -c/w protonix 20 mg PO daily -start Ranitidine 300 mg HS Hyperlipidemia - resume pravastatin 20 mg po hs Cognitive impairment - aricept 10 mg HS Insomnia/anxiety - Mirtazapine 30 mg PO HS DVT prophylaxis - Lovenox 40 mg sc Dispo: possible MANDEEP
[2018-08-02] MEDS: Pravastatin Sodium 20 MG TAB PO SCH (21:12)
[2018-08-02] MEDS: raNITIdine HCl 150 mg/10 ml Soln Cup PO SCH (21:12)
[2018-08-03] MEDS: TRIMETHOPRIM IVPB SCH ×3 (01:29→19:41)
[2018-08-03] MEDS: SULFAMETHOXAZOLE IVPB SCH ×3 (01:29→19:41)
[2018-08-03] MEDS: DEXTROSE 5% IVPB SCH ×3 (01:29→19:41)
[2018-08-03] MEDS: WATER IVPB SCH ×3 (01:29→19:41)
--- NOTE | 2018-08-03 04:09 | CP.PCM.PN ---
<Edouard Faye - Last Filed: 08/03/18 04:05> Subjective - Date & Time of Evaluation Date of Evaluation: 08/03/18 Time of Evaluation: 04:05 - Subjective Subjective: SURGERY NOTE FOR DR. ARREDONDO 87F seen and examined at bedside. Patient doing well denies abdominal pain, she is tolerating diet, she is having bowel movement. Patient set for DC 1pm today. Objective - Vital Signs/Intake and Output Vital Signs (last 24 hours): Temp Pulse Resp BP Pulse Ox 97.5 F L 114 H 18 111/61 94 L 08/03/18 00:48 08/03/18 00:48 08/03/18 00:48 08/03/18 00:48 08/03/18 00:48 Intake and Output: 08/02/18 08/03/18 18:59 06:59 Intake Total 1040 Balance 1040 - Medications Medications: Current Medications Albuterol/Ipratropium (Duoneb 3 Mg/0.5 Mg (3 Ml) Ud) 3 ml INH RQ6 PRN PRN Reason: Shortness of Breath Last Admin: 07/24/18 10:03 Dose: 3 ml Donepezil HCl (Aricept) 10 mg NG HS [facility] Last Admin: 08/02/18 21:12 Dose: 10 mg Enoxaparin Sodium (Lovenox) 40 mg SC DAILY [facility]; Protocol Last Admin: 08/02/18 09:55 Dose: 40 mg Trimethoprim/Sulfamethoxazole (360 mg/ Dextrose) 340 mls @ 226.667 mls/hr IVPB Q8 [facility]; Protocol Last Admin: 08/03/18 01:29 Dose: 226.667 mls/hr Acyclovir 680 mg/ Sodium (Chloride) 100 mls @ 100 mls/hr IV Q8 [facility]; Protocol Stop: 08/06/18 21:00 Last Admin: 08/03/18 00:48 Dose: 100 mls/hr Ketorolac Tromethamine (Toradol) 30 mg IVP Q6 PRN PRN Reason: Pain, severe (8-10) Last Admin: 08/01/18 11:07 Dose: 30 mg Mirtazapine (Remeron) 30 mg PO HS [facility] Last Admin: 08/02/18 21:12 Dose: 30 mg Pantoprazole Sodium (Protonix Ec Tab) 20 mg PO DAILY [facility] Last Admin: 08/02/18 09:55 Dose: 20 mg Pravastatin Sodium (Pravachol) 20 mg PO HS [facility] Last Admin: 08/02/18 21:12 Dose: 20 mg Ranitidine HCl (Zantac Soln 5ml) 300 mg PO HS [facility] Last Admin: 08/02/18 21:12 Dose: 300 mg Vitamin B Complex/Vit C/Folic Acid (Nephro-Liliana) 1 tab PO DAILY [facility] Last Admin: 08/02/18 09:56 Dose: 1 tab - Labs Labs: 08/01/18 05:00 08/01/18 05:00 PT 14.9 Seconds (9.8-13.1) H 07/18/18 05:00 INR 1.3 07/18/18 05:00 APTT 25.6 Seconds (25.6-37.1) 07/18/18 05:00 - Constitutional Appears: Non-toxic, No Acute Distress - Respiratory Exam Respiratory Exam: Clear to Ausculation Bilateral, NORMAL BREATHING PATTERN - Cardiovascular Exam Cardiovascular Exam: REGULAR RHYTHM, +S1, +S2 - GI/Abdominal Exam GI & Abdominal Exam: Soft. absent: Distended, Firm, Guarding, Rigid, Tenderness, Rebound - Neurological Exam Neurological Exam: Alert, Awake - Skin Skin Exam: Dry, Intact, Normal Color, Warm Assessment and Plan - Assessment and Plan (Free Text) Assessment: 87F s/p ex-lap SAILAJA, Repair of enterotomies*2 POD#22 Plan: - patient doing well - set for DC later today Further recs discuss with Dr. Kobe Faye, PGY3 <Wilder Bullock - Last Filed: 08/05/18 17:14> Objective - Vital Signs/Intake and Output Vital Signs (last 24 hours): Temp Pulse Resp BP Pulse Ox 98.1 F 84 18 103/58 L 94 L 08/05/18 16:22 08/05/18 16:22 08/05/18 16:22 08/05/18 16:22 08/05/18 16:22 - Medications Medications: Current Medications Albuterol/Ipratropium (Duoneb 3 Mg/0.5 Mg (3 Ml) Ud) 3 ml INH RQ6 PRN PRN Reason: Shortness of Breath Last Admin: 07/24/18 10:03 Dose: 3 ml Capsaicin (Trixaicin Cream) 1 applic TOP Q6 [facility] Last Admin: 08/05/18 15:16 Dose: 1 applic Dimethicone (Proshield Plus Skin Protectant) 1 applic TOP Q8 PRN PRN Reason: Incontinece Last Admin: 08/05/18 15:16 Dose: 1 applic Donepezil HCl (Aricept) 10 mg NG HS [facility] Last Admin: 08/04/18 22:46 Dose: 10 mg Enoxaparin Sodium (Lovenox) 40 mg SC DAILY [facility]; Protocol Last Admin: 08/05/18 10:17 Dose: 40 mg Trimethoprim/Sulfamethoxazole (360 mg/ Dextrose) 340 mls @ 226.667 mls/hr IVPB Q8 [facility]; Protocol Last Admin: 08/05/18 09:43 Dose: 226.667 mls/hr Acyclovir 600 mg/ Sodium (Chloride) 100 mls @ 100 mls/hr IV Q8 [facility]; Protocol Stop: 08/06/18 21:00 Last Admin: 08/04/18 09:50 Dose: 100 mls/hr Ketorolac Tromethamine (Toradol) 30 mg IVP Q6 PRN PRN Reason: Pain, severe (8-10) Last Admin: 08/01/18 11:07 Dose: 30 mg Mirtazapine (Remeron) 30 mg PO HS [facility] Last Admin: 08/04/18 22:47 Dose: 30 mg Pantoprazole Sodium (Protonix Ec Tab) 20 mg PO DAILY [facility] Last Admin: 08/05/18 10:16 Dose: Not Given Pravastatin Sodium (Pravachol) 20 mg PO HS [facility] Last Admin: 08/04/18 22:47 Dose: 20 mg Quetiapine Fumarate (Seroquel) 25 mg PO HS [facility] Last Admin: 08/04/18 22:46 Dose: 25 mg Ranitidine HCl (Zantac Soln 5ml) 300 mg PO HS [facility] Last Admin: 08/04/18 22:47 Dose: 300 mg - Labs Labs: 08/04/18 04:30 08/05/18 12:10 PT 14.9 Seconds (9.8-13.1) H 07/18/18 05:00 INR 1.3 07/18/18 05:00 APTT 25.6 Seconds (25.6-37.1) 07/18/18 05:00 Assessment and Plan - Assessment and Plan (Free Text) Plan: All medical record entries made by the resident were at my direction. I have reviewed the chart and agree that the record accurately reflects my personal performance of the history, physical exam, and medical decision making.
[2018-08-03 06:24] LABS: BASO # 0.1 K/uL (0.0-0.2); BASO % 0.9 % (0.0-2.0); EOS # 0.1 K/uL (0.0-0.7); EOS % 1.6 % (0.0-4.0); HEMOGLOBIN 9.7 g/dL (12.0-16.0); LYMPH # 0.9 K/uL (1.0-4.3); LYMPH % 12.9 % (20.0-40.0); MEAN CELL VOLUME 92.5 fl (81.0-99.0); MEAN CORPUSCULAR HEMOGLOBIN 30.5 pg (27.0-31.0); MEAN PLATELET VOLUME 8.6 fl (7.2-11.7); MONO # 0.7 K/uL (0.0-0.8); NEUT % 73.6 % (50.0-75.0); NRBC % 0.1 % (0.0-0.0); RBC 3.18 Mil/uL (3.80-5.20); RED CELL DISTRIBUTION WIDTH 14.8 % (11.5-14.5); WHITE BLOOD COUNT 6.7 K/uL (4.8-10.8)
--- NOTE | 2018-08-03 07:19 | CP.PCM.DIS ---
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 Social Work Referral Routine Comment: discharge planning Physician Instructions: Reason For Exam: discharge planning 07/12/18 18:21 Hematology Oncology Consult Routine Comment: Consulting Provider: Stevan Ray Consulting Physician: Stevan Ray Reason for Consult: leukopenia Infectious Disease Consult Routine Comment: Consulting Provider: Fidel Hong Consulting Physician: Fidel Hong Reason for Consult: sepsis after SBO 07/15/18 01:05 Cardiology Consult Routine Comment: Consulting Provider: Henri Barone V Consulting Physician: Henri Barone V Reason for Consult: A Fib with RVR 07/16/18 08:56 Pulmonology Consult Routine Comment: Postoperative acute respiratory failure Consulting Provider: Andry Bella Consulting Physician: Andry Bella Reason for Consult: Postoperative acute respiratory failure 07/23/18 06:44 Case Management Referral Routine Comment: Physician Instructions: Patient may need [facility] Reason For Exam: Reason for Referral: Discharge Planning 07/23/18 10:06 Physician Consult Routine Comment: Consulting Provider: Brien Duque Consulting Physician: Brien Duque Reason for Consult: PICC line revision Hospital Course - Lab Results Lab Results: Micro Results 07/25/18 12:46 Other: Please Indicate Fungal Culture - Preliminary 07/25/18 12:46 Other: Please Indicate Mycobacterial Culture - Preliminary 07/25/18 11:00 Bronchial Washings Bronchial Culture - Final Stenotrophomonas Maltophilia 07/21/18 20:12 Naris MRSA Culture (Admit) - Final MRSA NOT DETECTED 07/14/18 17:00 Blood-Venous Blood Culture - Final NO GROWTH AFTER 5 DAYS 07/14/18 17:00 Blood-Venous Gram Stain - Final TEST NOT PERFORMED 07/14/18 15:58 Blood-Venous Blood Culture - Final NO GROWTH AFTER 5 DAYS 07/14/18 15:58 Blood-Venous Gram Stain - Final TEST NOT PERFORMED 07/13/18 16:00 Blood-Venous Blood Culture - Final NO GROWTH AFTER 5 DAYS 07/13/18 16:00 Blood-Venous Gram Stain - Final TEST NOT PERFORMED 07/13/18 17:00 Blood-Venous Blood Culture - Final NO GROWTH AFTER 5 DAYS 07/13/18 17:00 Blood-Venous Gram Stain - Final TEST NOT PERFORMED 07/14/18 16:00 Sputum Gram Stain - Final 07/14/18 16:00 Sputum Sputum Culture - Final No growth. 07/13/18 17:21 Urine,Elizondo Urine Culture - Final No Growth (<1,000 CFU/ML) 07/10/18 19:55 Urine Random Urine Culture - Final Gram Negative [place] Most Recent Lab Values WBC 6.7 K/uL (4.8-10.8) 08/03/18 04:30 RBC 3.18 Mil/uL (3.80-5.20) L 08/03/18 04:30 Hgb 9.7 g/dL (12.0-16.0) L 08/03/18 04:30 Hct 29.4 % (34.0-47.0) L 08/03/18 04:30 MCV 92.5 fl (81.0-99.0) 08/03/18 04:30 MCH 30.5 pg (27.0-31.0) 08/03/18 04:30 MCHC 33.0 g/dL (33.0-37.0) 08/03/18 04:30 RDW 14.8 % (11.5-14.5) H 08/03/18 04:30 Plt Count 251 K/uL (130-400) 08/03/18 04:30 MPV 8.6 fl (7.2-11.7) 08/03/18 04:30 Neut % (Auto) 73.6 % (50.0-75.0) 08/03/18 04:30 Lymph % (Auto) 12.9 % (20.0-40.0) L 08/03/18 04:30 [place] % (Auto) 11.0 % (0.0-10.0) H 08/03/18 04:30 Eos % (Auto) 1.6 % (0.0-4.0) 08/03/18 04:30 Baso % (Auto) 0.9 % (0.0-2.0) 08/03/18 04:30 Neut # (Auto) 5.0 K/uL (1.8-7.0) 08/03/18 04:30 Lymph # (Auto) 0.9 K/uL (1.0-4.3) L 08/03/18 04:30 [place] # (Auto) 0.7 K/uL (0.0-0.8) 08/03/18 04:30 Eos # (Auto) 0.1 K/uL (0.0-0.7) 08/03/18 04:30 Baso # (Auto) 0.1 K/uL (0.0-0.2) 08/03/18 04:30 Total Counted Cancelled 07/15/18 05:40 Neutrophils % (Manual) 76 % (42-75) H 07/12/18 23:17 Band Neutrophils % 6 % (0-2) H 07/12/18 23:17 Lymphocytes % (Manual) 7 % (20-50) L 07/12/18 23:17 Reactive Lymphs % 3 % (0-0) H 07/12/18 23:17 Monocytes % (Manual) 8 % (0-10) 07/12/18 23:17 Eosinophils % (Manual) Cancelled 07/15/18 05:40 Basophils % (Manual) Cancelled 07/15/18 05:40 Metamyelocytes % Cancelled 07/15/18 05:40 Myelocytes % Cancelled 07/15/18 05:40 Promyelocytes % Cancelled 07/15/18 05:40 Blast Cells % Cancelled 07/15/18 05:40 Plasma Cell % (Manual) Cancelled 07/15/18 05:40 Nucleated RBC % Cancelled 07/15/18 05:40 Hypersegmented Polys Cancelled 07/15/18 05:40 Smudge Cells Cancelled 07/15/18 05:40 Toxic Granulation Cancelled 07/15/18 05:40 Dohle Bodies Cancelled 07/15/18 05:40 Reyes Rods Cancelled 07/15/18 05:40 Platelet Estimate Normal (NORMAL) 07/12/18 23:17 Plt Clumps, EDTA Cancelled 07/15/18 05:40 Large Platelets Cancelled 07/15/18 05:40 Giant Platelets Cancelled 07/15/18 05:40 RBC Morphology Normal (NORMAL) 07/10/18 13:10 Polychromasia Cancelled 07/15/18 05:40 Hypochromasia (manual) Slight 07/12/18 23:17 Poikilocytosis (manual Cancelled 07/15/18 05:40 Basophilic Stippling Cancelled 07/15/18 05:40 Anisocytosis (manual) Slight 07/12/18 23:17 Microcytosis (manual) Cancelled 07/15/18 05:40 Macrocytosis (manual) Cancelled 07/15/18 05:40 Spherocytes Cancelled 07/15/18 05:40 Sickle Cells Cancelled 07/15/18 05:40 Target Cells Cancelled 07/15/18 05:40 Tear Drop Cells Cancelled 07/15/18 05:40 Ovalocytes Cancelled 07/15/18 05:40 Stomatocytes Cancelled 07/15/18 05:40 Helmet Cells Cancelled 07/15/18 05:40 [place] Bodies Cancelled 07/15/18 05:40 [place] Cells Cancelled 07/15/18 05:40 Acanthocytes (Spur) Moderate 07/12/18 23:17 Rouleaux Cancelled 07/15/18 05:40 Schistocytes Cancelled 07/15/18 05:40 PT 14.9 Seconds (9.8-13.1) H 07/18/18 05:00 INR 1.3 07/18/18 05:00 APTT 25.6 Seconds (25.6-37.1) 07/18/18 05:00 Fibrinogen 589 mg/dl (200-400) H 07/18/18 05:00 pCO2 46 mm/Hg (35-45) H 07/15/18 10:43 pO2 91 mm/Hg (80-100) 07/15/18 10:43 HCO3 23.9 mmol/L (21-28) 07/15/18 10:43 ABG pH 7.34 (7.35-7.45) L 07/15/18 10:43 ABG Total CO2 26.2 mmol/L (22-28) 07/15/18 10:43 ABG O2 Saturation 98.8 % (95-98) H 07/15/18 10:43 ABG O2 Content 15.1 ML/dL (15-23) 07/14/18 16:05 ABG Base Excess -1.3 mmol/L (-2.0-3.0) 07/15/18 10:43 ABG Hemoglobin 11.1 g/dL (11.7-17.4) L 07/14/18 16:05 ABG Carboxyhemoglobin 1.3 % (0.5-1.5) 07/14/18 16:05 POC ABG HHb (Measured) 1.2 % (0.0-5.0) 07/14/18 16:05 ABG Methemoglobin 1.7 % (0.0-3.0) 07/14/18 16:05 ABG O2 Capacity 15.3 mL/dL (16-24) L 07/14/18 16:05 [place] Test Yes 07/15/18 10:43 ABG Potassium 3.5 mmol/L (3.6-5.2) L 07/15/18 10:43 A-a O2 Difference 208.0 mm/Hg 07/15/18 10:43 Hgb O2 Saturation 95.8 % (95.0-98.0) 07/14/18 16:05 Sodium 138.0 mmol/L (132-148) 07/15/18 10:43 Chloride 111.0 mmol/L (98-107) H 07/15/18 10:43 Glucose 115 mg/dL (65-105) H 07/15/18 10:43 Lactate 1.2 mmol/L (0.7-2.1) 07/15/18 10:43 Vent Mode Cpap+ps 07/14/18 16:05 Mechanical Rate 10 07/13/18 04:22 FiO2 50.0 % 07/15/18 10:43 Tidal Volume 400 07/13/18 04:22 PEEP 5 07/14/18 16:05 Pressure Support 5 07/14/18 16:05 CPAP 5 07/13/18 09:00 Sodium 134 mmol/l (132-148) 08/01/18 05:00 Potassium 4.6 MMOL/L (3.6-5.0) 08/01/18 05:00 Chloride 100 mmol/L (98-107) 08/01/18 05:00 Carbon Dioxide 29 mmol/L (22-30) 08/01/18 05:00 Anion Gap 10 (10-20) 08/01/18 05:00 BUN 11 mg/dl (7-17) 08/01/18 05:00 Creatinine 0.7 mg/dl (0.7-1.2) 08/01/18 05:00 Est GFR ( Amer) > 60 08/01/18 05:00 Est GFR (Non-Af Amer) > 60 08/01/18 05:00 POC Glucose (mg/dL) 127 mg/dL (65-110) H 07/17/18 16:34 Random Glucose 74 mg/dL (65-105) 08/01/18 05:00 Lactic Acid 1.2 mmol/L (0.7-2.1) 07/15/18 23:00 Calcium 8.4 mg/dL (8.4-10.2) 08/01/18 05:00 Phosphorus 3.9 mg/dl (2.5-4.5) 08/01/18 05:00 Magnesium 1.9 MG/DL (1.6-2.3) 08/01/18 05:00 Total Bilirubin 0.2 mg/dl (0.2-1.3) 07/29/18 05:20 AST 34 U/L (14-36) 07/29/18 05:20 ALT 30 U/L (9-52) 07/29/18 05:20 Alkaline Phosphatase 58 U/L (38-126) 07/29/18 05:20 Troponin I 0.2380 ng/mL (0.00-0.120) H* 07/16/18 04:20 NT-Pro-B Natriuret Pep 627 pg/ml (0-900) 07/12/18 23:17 Total Protein 4.9 G/DL (6.3-8.2) L 07/29/18 05:20 Albumin 2.3 g/dL (3.5-5.0) L 07/29/18 05:20 Globulin 2.6 gm/dL (2.2-3.9) 07/29/18 05:20 Albumin/Globulin Ratio 0.9 (1.0-2.1) L 07/29/18 05:20 Lipase 115 U/L (23-300) 07/10/18 13:10 Procalcitonin 99.94 NG/ML (0.19-0.49) H 07/12/18 04:30 Cortisol AM Sample 63.4 ug/dL (4.46-22.7) H 07/13/18 12:03 Arterial Blood Potassium 3.5 mmol/L (3.6-5.2) L 07/15/18 10:43 Urine Color Yellow (YELLOW) 08/02/18 00:51 Urine Clarity Cloudy (Clear) 08/02/18 00:51 Urine pH 8.0 (5.0-8.0) 08/02/18 00:51 Ur Specific [place] 1.006 (1.003-1.030) 08/02/18 00:51 Urine Protein Negative mg/dL (NEGATIVE) 08/02/18 00:51 Urine Glucose (UA) Neg mg/dL (NEGATIVE) 08/02/18 00:51 Urine Ketones Negative mg/dL (NEGATIVE) 08/02/18 00:51 Urine Blood Negative (NEGATIVE) 08/02/18 00:51 Urine Nitrate Negative (NEGATIVE) 08/02/18 00:51 Urine Bilirubin Negative (NEGATIVE) 08/02/18 00:51 Urine Urobilinogen 0.2-1.0 mg/dL (0.2-1.0) 08/02/18 00:51 Ur Leukocyte Esterase Neg Nori/uL (Negative) 08/02/18 00:51 Urine RBC (Auto) 2 /hpf (0-3) 08/02/18 00:51 Urine Microscopic WBC 1 /hpf (0-5) 08/02/18 00:51 Ur Squamous Epith Cells 1 /hpf (0-5) 08/02/18 00:51 Hyaline Casts 0-2 /hpf (0-2) 08/02/18 00:51 Vancomycin Trough 10.4 ug/mL (5.0-10.0) H 07/20/18 04:30 Blood Type A POSITIVE 07/10/18 20:00 Antibody Screen Negative 07/10/18 20:00 BBK History Checked Patient has bt 07/10/18 20:00 Discharge Exam - Head Exam Head Exam: ATRAUMATIC, NORMOCEPHALIC Discharge Plan - Discharge Medications Prescriptions: Acyclovir Sod in Dextrose 5 % [Acyclovir 200 mg/100 ml-D5w] 680 mg IV Q8 #12 piggyback Multivit-Min/FA/Lycopen/Lutein [Adults 50 Plus Multivitamin] 1 each PO DAILY #30 tablet Sulfamethoxazole/Trimethoprim [Bactrim IV 16 mg/ml-80 mg/ml] 360 mg IV Q8 #14 vial - Follow Up Plan Condition: FAIR Disposition: HOME/ ROUTINE Instructions: Small Bowel Obstruction (DC) Referrals: Wilder Bullock MD [Staff Provider] - Ger Orozco MD [Family Provider] -
[2018-08-03] MEDS: Multivitamin Vitamin B Complex (Nephro-Vite) Tab PO SCH (09:21)
[2018-08-03] MEDS: Enoxaparin 40 mg Syringe SC SCH (09:21)
[2018-08-03] MEDS: Pantoprazole 20 mg EC Tab PO SCH (09:22)
--- NOTE | 2018-08-03 10:50 | CP.PCM.PN ---
<Catarina Welch Sarah - Last Filed: 08/03/18 13:04> Subjective - Date & Time of Evaluation Date of Evaluation: 08/03/18 Time of Evaluation: 08:00 - Subjective Subjective: Patient was seen and examined at bedside with attending Dr. Anton. Patient was seen alert, awake, and oriented x 3 at this time. However patient had an episode of confusion, disorientation, and possible " visual hallucinations". Patient states she saw " a strange person" in her room last night, who was talking to her". Family is at bedside at this time. Patient was awaiting to be transfer to [facility] this afternoon. Will hold DC to [facility] for now, and monitor mental status. Potential transfer on Sunday. Objective - Vital Signs/Intake and Output Vital Signs (last 24 hours): Temp Pulse Resp BP Pulse Ox 97.6 F 104 H 20 119/75 94 L 08/03/18 08:08 08/03/18 08:08 08/03/18 08:08 08/03/18 08:08 08/03/18 08:08 Intake and Output: 08/03/18 08/03/18 06:59 18:59 Intake Total 680 Balance 680 - Medications Medications: Current Medications Albuterol/Ipratropium (Duoneb 3 Mg/0.5 Mg (3 Ml) Ud) 3 ml INH RQ6 PRN PRN Reason: Shortness of Breath Last Admin: 07/24/18 10:03 Dose: 3 ml Donepezil HCl (Aricept) 10 mg NG HS [facility] Last Admin: 08/02/18 21:12 Dose: 10 mg Enoxaparin Sodium (Lovenox) 40 mg SC DAILY [facility]; Protocol Last Admin: 08/03/18 09:21 Dose: 40 mg Trimethoprim/Sulfamethoxazole (360 mg/ Dextrose) 340 mls @ 226.667 mls/hr IVPB Q8 [facility]; Protocol Last Admin: 08/03/18 09:20 Dose: 226.667 mls/hr Acyclovir 600 mg/ Sodium (Chloride) 100 mls @ 100 mls/hr IV Q8 [facility]; Protocol Stop: 08/06/18 21:00 Ketorolac Tromethamine (Toradol) 30 mg IVP Q6 PRN PRN Reason: Pain, severe (8-10) Last Admin: 08/01/18 11:07 Dose: 30 mg Mirtazapine (Remeron) 30 mg PO [facility] Last Admin: 08/02/18 21:12 Dose: 30 mg Pantoprazole Sodium (Protonix Ec Tab) 20 mg PO DAILY [facility] Last Admin: 08/03/18 09:22 Dose: 20 mg Pravastatin Sodium (Pravachol) 20 mg PO [facility] Last Admin: 08/02/18 21:12 Dose: 20 mg Ranitidine HCl (Zantac Soln 5ml) 300 mg PO [facility] Last Admin: 08/02/18 21:12 Dose: 300 mg Vitamin B Complex/Vit C/Folic Acid (Nephro-Liliana) 1 tab PO DAILY [facility] Last Admin: 08/03/18 09:21 Dose: 1 tab - Labs Labs: 08/03/18 04:30 08/01/18 05:00 PT 14.9 Seconds (9.8-13.1) H 07/18/18 05:00 INR 1.3 07/18/18 05:00 APTT 25.6 Seconds (25.6-37.1) 07/18/18 05:00 - Skin Additional comments: Constitutional Appears: Non-toxic, No Acute Distress - ENT Exam ENT Exam: Mucous Membranes Dry - Respiratory Exam Respiratory Exam: Clear to Ausculation Bilateral (upper/middle lungs field, slightly decreased in lower lobes), NORMAL BREATHING PATTERN - Cardiovascular Exam Cardiovascular Exam: REGULAR RHYTHM, +S1, +S2 - GI/Abdominal Exam GI & Abdominal Exam: Soft, Normal Bowel Sounds. absent: Guarding, Rigid, Tenderness Additional comments: Wound Vac in placed - Extremities Exam Extremities Exam: Pedal Edema. absent: Calf Tenderness Additional comments: Edema 3+ of lower extremities, stable - Neurological Exam Neurological Exam: Alert, Awake, Oriented x3 Assessment and Plan - Assessment and Plan (Free Text) Assessment: 87 F who presents with septic shock, acute respiratory failure, elevated lactate, s/p exploratory laparotomy, lysis of adhesion, and repair of enterotomy x2 for SBO POD 22. Postoperatively her oral intake has been poor and her nutritional status has also been poor resulting in severe hypoalbuminemia. Patient with a fair amount of anasarca and low BP. Plan: Disorientation to place -associated with possible " visual hallucinations" -as per PCP patient had similar episode in the past, h/o dementia with intermittent episodes of confusion -resolved after re-orientation -was started on acyclovir yesterday, side effects reviewed, rare/<1% confusion/delirium/hallucination -will decrease acyclovir dose and monitor for now, pt had similar episode in the past Stenotrophomonas maltophilia culture infection in Bronchial culture -Bronchial culture Stenotrophomonas maltophilia noted in final report -c/w Bactrim 15 mg/kg Q8 h as per ID recommendations Day #6 -per ID recs will complete 10 days of Bactrim (08/07/18) -CBC this AM: WBC: WNL - repeat CXR on 08/02/18 reported improvement -f/u ID recommendations 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 -Acyclovir dose decreased from 680 to 600 mg Q8 -Discussed with ID, Dr Hong,started on Acyclovir 10 mg/kg/dose [id number] x 5 days as per ID recs, Day #2 ( until 08/06/18) 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 -ID notified of confusion/disorientation episode, awaiting response Deconditioning/weakness/Hypoalbuminuria -c/w Vitamin B complex -calories count -Plant Operations Manager consult for nutritional support and supplementation -start Pros-tat -c/w Ensure -CMP/Mag/Phos this morning WNL -repeat UA negative, no proteinuria -promote oral intake -GFR >60, no proteinuria seen in last UA done on admission -c/w physical therapy Right PICC line -for IV meds Leucopenia resolved/WBC WNL -Mild/ 4.7 -was WNL on admission -POssible 2/2 bactrim -if< 3000 will DC bactrim as per ID recommendations Abdominal open wound s/p Small bowel obstruction/ s/p ex laparotomy POD 22 -Wound vac dressing changes every 3 days while inpatient by surgical team. Last changed 08/02/18. -completed 14 days of empiric meropnem and flagyl for intra-abd Infection as per ID recs -completed 8 days of vanco as per ID recs Small bowel obstruction/ s/p ex laparotomy POD 22 - General surgery, Dr. Bullock on board - Pain management - Tolerating PO - encouraged incentive spirometry and OOB -Clear for discharge from surgical standpoint Bilateral Pleural effusion b/l Atelectasis -Repeat chest CT: stable pleural effusions, bibasilar atelectasis -Pulmonology consult, recs appreciated -s/p flexible broncho 07/25/18 -Bronchial culture Stenotrophomonas maltophilia noted in final report -c/w Bactrim 15 mg/kg Q8 h as per ID recommendations Day #6 -on NC at 2 lpm -respiratory therapy -Encouraged PT and OOB -continue with incentive spirometer S/p Non-Q wave myocardial infarction probably secondary to a brief period of hypotension Cardiology was consulted, Dr. Barone. h/o HTN -BP in low normal levels without medication, likely 2/2 hypoalbuminemia 2/2 poor nutritional status 2/2 Poor PO intake -recalled Cardiology for re-evaluation. Recs are appreciated -f/u repeat UA to r/o significant proteinuria -c/w BP monitor Hiatal hernia/GERD -c/w protonix 20 mg PO daily -start Ranitidine 300 mg HS Hyperlipidemia - resume pravastatin 20 mg po hs Cognitive impairment - aricept 10 mg HS Insomnia/anxiety - Mirtazapine 30 mg PO HS DVT prophylaxis - Lovenox 40 mg sc Dispo: possible [facility] <Maria Victoria Anton - Last Filed: 08/03/18 15:33> Objective - Vital Signs/Intake and Output Vital Signs (last 24 hours): Temp Pulse Resp BP Pulse Ox 97.5 F L 82 20 120/63 96 08/03/18 12:45 08/03/18 12:45 08/03/18 12:45 08/03/18 12:45 08/03/18 12:45 Intake and Output: 08/03/18 08/03/18 06:59 18:59 Intake Total 680 Balance 680 - Medications Medications: Current Medications Albuterol/Ipratropium (Duoneb 3 Mg/0.5 Mg (3 Ml) Ud) 3 ml INH RQ6 PRN PRN Reason: Shortness of Breath Last Admin: 07/24/18 10:03 Dose: 3 ml Capsaicin (Trixaicin Cream) 1 applic TOP Q6 [facility] Donepezil HCl (Aricept) 10 mg NG HS [facility] Last Admin: 08/02/18 21:12 Dose: 10 mg Enoxaparin Sodium (Lovenox) 40 mg SC DAILY [facility]; Protocol Last Admin: 08/03/18 09:21 Dose: 40 mg Trimethoprim/Sulfamethoxazole (360 mg/ Dextrose) 340 mls @ 226.667 mls/hr IVPB Q8 [facility]; Protocol Last Admin: 08/03/18 09:20 Dose: 226.667 mls/hr Acyclovir 600 mg/ Sodium (Chloride) 100 mls @ 100 mls/hr IV Q8 [facility]; Protocol Stop: 08/06/18 21:00 Ketorolac Tromethamine (Toradol) 30 mg IVP Q6 PRN PRN Reason: Pain, severe (8-10) Last Admin: 08/01/18 11:07 Dose: 30 mg Mirtazapine (Remeron) 30 mg PO HS [facility] Last Admin: 08/02/18 21:12 Dose: 30 mg Pantoprazole Sodium (Protonix Ec Tab) 20 mg PO DAILY [facility] Last Admin: 08/03/18 09:22 Dose: 20 mg Pravastatin Sodium (Pravachol) 20 mg PO HS [facility] Last Admin: 08/02/18 21:12 Dose: 20 mg Ranitidine HCl (Zantac Soln 5ml) 300 mg PO HS [facility] Last Admin: 08/02/18 21:12 Dose: 300 mg Vitamin B Complex/Vit C/Folic Acid (Nephro-Liliana) 1 tab PO DAILY [facility] Last Admin: 08/03/18 09:21 Dose: 1 tab - Labs Labs: 08/03/18 04:30 08/01/18 05:00 PT 14.9 Seconds (9.8-13.1) H 07/18/18 05:00 INR 1.3 07/18/18 05:00 APTT 25.6 Seconds (25.6-37.1) 07/18/18 05:00 Attending/Attestation - Attestation I have personally seen and examined this patient.: Yes I have fully participated in the care of the patient.: Yes I have reviewed all pertinent clinical information, including history, physical exam and plan: Yes Notes (Text): AMS/Delirium prob due acute medical condition in Elderly // r/o SE of medication SBO s/p Adhesiolysis and Repair on Enterotomy Respiratory Insufficency, resolved Stenotrophomonas Infection Lung Herpes Viral Inclusion on Resp Cytology Troponin Elevation/Non Q wave OK due to Hypotension and Tachy episode Hypoalbuminemia Deconditioning - AMS better this am, will continue to monitor in the hosp , uncvlear if this is medication SE - Bactrim IV for tx of Stenotrophomonas -completed IV abd for tx of poss GI infection due to Enterotomy ( received IV Meropenem, Flagyl and Vanco) - cont IV Acyclovir -Physical therapy - plan for d/c to [facility] once AMS improves
[2018-08-03] MEDS: Pravastatin Sodium 20 MG TAB PO SCH (21:17)
[2018-08-03] MEDS: raNITIdine HCl 150 mg/10 ml Soln Cup PO SCH (21:17)
[2018-08-04] MEDS: WATER IVPB SCH ×3 (02:03→16:46)
[2018-08-04] MEDS: SULFAMETHOXAZOLE IVPB SCH ×3 (02:03→16:46)
[2018-08-04] MEDS: DEXTROSE 5% IVPB SCH ×3 (02:03→16:46)
[2018-08-04] MEDS: TRIMETHOPRIM IVPB SCH ×3 (02:03→16:46)
[2018-08-04 06:42] LABS: HEMOGLOBIN 9.4 g/dL (12.0-16.0); MEAN CELL VOLUME 91.3 fl (81.0-99.0); MEAN CORPUSCULAR HEMOGLOBIN 30.8 pg (27.0-31.0); MEAN CORPUSCULAR HGB CONC 33.8 g/dL (33.0-37.0); RBC 3.05 Mil/uL (3.80-5.20); RED CELL DISTRIBUTION WIDTH 14.9 % (11.5-14.5); WHITE BLOOD COUNT 7.2 K/uL (4.8-10.8)
--- NOTE | 2018-08-04 07:12 | CP.PCM.PN ---
<Catarina Welch Sarah - Last Filed: 08/04/18 11:59> Subjective - Date & Time of Evaluation Date of Evaluation: 08/04/18 Time of Evaluation: 08:25 - Subjective Subjective: Patient was seen and examined at bedside this morning in telemetry unit with attending Dr. Anton. Patient is seen alert, awake and oriented x 3, however still restless, and talking incoherently. As per overnight nurse report patient was confused, restless, anxious, talking incoherently last night. Seroquel mg PO was given. Vital signs stable WNL. Afebrile. Oxygen sat has been between 93-98 %. No respiratory distress. Urinating well, and moving her bowels. Last BM was yesterday. Objective - Vital Signs/Intake and Output Vital Signs (last 24 hours): Temp Pulse Resp BP Pulse Ox 97.4 F L 102 H 18 125/63 94 L 08/04/18 04:00 08/04/18 04:00 08/04/18 04:00 08/04/18 04:00 08/04/18 04:00 - Medications Medications: Current Medications Albuterol/Ipratropium (Duoneb 3 Mg/0.5 Mg (3 Ml) Ud) 3 ml INH RQ6 PRN PRN Reason: Shortness of Breath Last Admin: 07/24/18 10:03 Dose: 3 ml Capsaicin (Trixaicin Cream) 1 applic TOP Q6 [facility] Last Admin: 08/04/18 04:00 Dose: 1 applic Donepezil HCl (Aricept) 10 mg NG HS [facility]A Last Admin: 08/03/18 21:17 Dose: 10 mg Enoxaparin Sodium (Lovenox) 40 mg SC DAILY [facility]; Protocol Last Admin: 08/03/18 09:21 Dose: 40 mg Trimethoprim/Sulfamethoxazole (360 mg/ Dextrose) 340 mls @ 226.667 mls/hr IVPB Q8 [facility]A; Protocol Last Admin: 08/04/18 02:03 Dose: 226.667 mls/hr Acyclovir 600 mg/ Sodium (Chloride) 100 mls @ 100 mls/hr IV Q8 [facility]ILA; Protocol Stop: 08/06/18 21:00 Last Admin: 08/04/18 00:13 Dose: 100 mls/hr Ketorolac Tromethamine (Toradol) 30 mg IVP Q6 PRN PRN Reason: Pain, severe (8-10) Last Admin: 08/01/18 11:07 Dose: 30 mg Mirtazapine (Remeron) 30 mg PO [facility] Last Admin: 08/03/18 21:17 Dose: 30 mg Pantoprazole Sodium (Protonix Ec Tab) 20 mg PO DAILY [facility] Last Admin: 08/03/18 09:22 Dose: 20 mg Pravastatin Sodium (Pravachol) 20 mg PO [facility] Last Admin: 08/03/18 21:17 Dose: 20 mg Quetiapine Fumarate (Seroquel) 25 mg PO [facility] Last Admin: 08/03/18 22:06 Dose: 25 mg Ranitidine HCl (Zantac Soln 5ml) 300 mg PO [facility] Last Admin: 08/03/18 21:17 Dose: 300 mg Vitamin B Complex/Vit C/Folic Acid (Nephro-Liliana) 1 tab PO DAILY [facility] Last Admin: 08/03/18 09:21 Dose: 1 tab - Labs Labs: 08/04/18 04:30 08/01/18 05:00 PT 14.9 Seconds (9.8-13.1) H 07/18/18 05:00 INR 1.3 07/18/18 05:00 APTT 25.6 Seconds (25.6-37.1) 07/18/18 05:00 - Skin Additional comments: Constitutional Appears: Non-toxic, No Acute Distress - ENT Exam ENT Exam: Mucous Membranes Dry - Respiratory Exam Respiratory Exam: Clear to Ausculation Bilateral (upper/middle lungs field, slightly decreased in lower lobes), NORMAL BREATHING PATTERN - Cardiovascular Exam Cardiovascular Exam: REGULAR RHYTHM, +S1, +S2 - GI/Abdominal Exam GI & Abdominal Exam: Soft, Normal Bowel Sounds. absent: Guarding, Rigid, Tenderness Additional comments: Wound Vac in placed - Extremities Exam Extremities Exam: Pedal Edema. absent: Calf Tenderness Additional comments: Edema 3+ of lower extremities, stable - Neurological Exam Neurological Exam: Alert, Awake, Oriented x3, incoherent speech Assessment and Plan - Assessment and Plan (Free Text) Assessment: 87 F who presents with septic shock, acute respiratory failure, elevated lactate, s/p exploratory laparotomy, lysis of adhesion, and repair of enterotomy x2 for SBO POD 23. Postoperatively her oral intake has been poor and her nutritional status has also been poor resulting in severe hypoalbuminemia. Patient with a fair amount of anasarca and low BP. Presenting with episodes o confusion, restlessness, and incoherent speech. Plan: AMS -acute medical condition in elderly/sunding/ r/o medication side effects -h/o Dementia -associated with possible " visual hallucinations", restlessness, anxiety -Psychiatrist consult for evaluation -s/p seroquel 25 mg PO HS last night -as per PCP patient had similar episode in the past, h/o dementia with intermittent episodes of confusion Stenotrophomonas maltophilia culture infection in Bronchial culture -Bronchial culture Stenotrophomonas maltophilia noted in final report -c/w Bactrim IV 15 mg/kg Q8 h as per ID recommendations Day #7 -per ID recs will complete 10 days of Bactrim (08/07/18) -CBC this AM: WBC: WNL - repeat CXR on 08/02/18 reported improvement -f/u ID recommendations 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 -c/w Acyclovir 600 mg Q8 -Discussed with ID, Dr Hong,started on Acyclovir 10 mg/kg/dose [id number] x 5 days as per ID recs, Day #3 ( until 08/06/18) 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 -ID notified of confusion/disorientation episode, ID specialist aware, no new recommendations at this time Deconditioning/weakness/Hypoalbuminuria -c/w Vitamin B complex -calories count -Laboratory Equipment Cleaner consult for nutritional support and supplementation -c/w Pros-tat -c/w Ensure -CMP/Mag/Phos this morning WNL -repeat UA negative, no proteinuria -promote oral intake -GFR >60, no proteinuria seen in last UA done on admission -c/w physical therapy Right PICC line -for IV meds Abdominal open wound s/p Small bowel obstruction/ s/p ex laparotomy POD 23 -Wound vac dressing changes every 3 days while inpatient by surgical team. Last changed 08/02/18. -completed 14 days of empiric meropnem and flagyl for intra-abd Infection as per ID recs -completed 8 days of vanco as per ID recs Small bowel obstruction/ s/p ex laparotomy POD 23 - General surgery, Dr. Bullock on board - Pain management - Tolerating PO - encouraged incentive spirometry and OOB -Clear for discharge from surgical standpoint Bilateral Pleural effusion b/l Atelectasis -Repeat chest CT: stable pleural effusions, bibasilar atelectasis -Pulmonology consult, recs appreciated -s/p flexible broncho 07/25/18 -Bronchial culture Stenotrophomonas maltophilia noted in final report -c/w Bactrim 15 mg/kg Q8 h as per ID recommendations Day #7 -on NC at 2 lpm -respiratory therapy -Encouraged PT and OOB -continue with incentive spirometer S/p Non-Q wave myocardial infarction probably secondary to a brief period of hypotension Cardiology was consulted, Dr. Barone. h/o HTN improving -had BP in low normal levels without medication, likely 2/2 hypoalbuminemia 2/2 poor nutritional status 2/2 Poor PO intake -recalled Cardiology for re-evaluation. NO new recommendations at this time -repeat UA negative, no proteinuria -c/w BP monitor Hiatal hernia/GERD -c/w protonix 20 mg PO daily -c/w Ranitidine 300 mg HS Hyperlipidemia - resume pravastatin 20 mg po hs Cognitive impairment - aricept 10 mg HS Insomnia/anxiety - Mirtazapine 30 mg PO HS DVT prophylaxis - Lovenox 40 mg sc Dispo: possible [facility] <Maria Victoria Anton - Last Filed: 08/04/18 16:05> Objective - Vital Signs/Intake and Output Vital Signs (last 24 hours): Temp Pulse Resp BP Pulse Ox 98 F 95 H 20 104/59 L 94 L 08/04/18 12:45 08/04/18 12:45 08/04/18 12:45 08/04/18 12:45 08/04/18 12:45 - Medications Medications: Current Medications Albuterol/Ipratropium (Duoneb 3 Mg/0.5 Mg (3 Ml) Ud) 3 ml INH RQ6 PRN PRN Reason: Shortness of Breath Last Admin: 07/24/18 10:03 Dose: 3 ml Capsaicin (Trixaicin Cream) 1 applic TOP Q6 [facility] Last Admin: 08/04/18 09:50 Dose: 1 applic Donepezil HCl (Aricept) 10 mg NG HS [facility] Last Admin: 08/03/18 21:17 Dose: 10 mg Enoxaparin Sodium (Lovenox) 40 mg SC DAILY [facility]; Protocol Last Admin: 08/04/18 09:49 Dose: 40 mg Trimethoprim/Sulfamethoxazole (360 mg/ Dextrose) 340 mls @ 226.667 mls/hr IVPB Q8 [facility]A; Protocol Last Admin: 08/04/18 11:14 Dose: 226.667 mls/hr Acyclovir 600 mg/ Sodium (Chloride) 100 mls @ 100 mls/hr IV Q8 [facility]; Protocol Stop: 08/06/18 21:00 Last Admin: 08/04/18 09:50 Dose: 100 mls/hr Ketorolac Tromethamine (Toradol) 30 mg IVP Q6 PRN PRN Reason: Pain, severe (8-10) Last Admin: 08/01/18 11:07 Dose: 30 mg Mirtazapine (Remeron) 30 mg PO HS [facility] Last Admin: 08/03/18 21:17 Dose: 30 mg Pantoprazole Sodium (Protonix Ec Tab) 20 mg PO DAILY [facility] Last Admin: 08/04/18 09:51 Dose: 20 mg Pravastatin Sodium (Pravachol) 20 mg PO HS [facility] Last Admin: 08/03/18 21:17 Dose: 20 mg Quetiapine Fumarate (Seroquel) 25 mg PO HS [facility] Last Admin: 08/03/18 22:06 Dose: 25 mg Ranitidine HCl (Zantac Soln 5ml) 300 mg PO HS [facility] Last Admin: 08/03/18 21:17 Dose: 300 mg Vitamin B Complex/Vit C/Folic Acid (Nephro-Liliana) 1 tab PO DAILY [facility] Last Admin: 08/04/18 09:51 Dose: 1 tab - Labs Labs: 08/04/18 04:30 08/01/18 05:00 PT 14.9 Seconds (9.8-13.1) H 07/18/18 05:00 INR 1.3 07/18/18 05:00 APTT 25.6 Seconds (25.6-37.1) 07/18/18 05:00 Attending/Attestation - Attestation I have personally seen and examined this patient.: Yes I have fully participated in the care of the patient.: Yes I have reviewed all pertinent clinical information, including history, physical exam and plan: Yes Notes (Text): AMS/Delirium prob due acute medical condition in Elderly // r/o SE of medication SBO s/p Adhesiolysis and Repair on Enterotomy Respiratory Insufficency, resolved Stenotrophomonas Infection Lung Herpes Viral Inclusion on Resp Cytology Troponin Elevation/Non Q wave CO due to Hypotension and Tachy episode Hypoalbuminemia Deconditioning - still with confusion , will continue to monitor in the hosp , unclear etiology , could be due to being in the hospital in the elderly and possible medication SE - Pt on Bactrim IV for tx of Stenotrophomonas -completed IV abd for tx of poss GI infection due to Enterotomy ( received IV Meropenem, Flagyl and Vanco) - on IV Acyclovir for Herpes Inclusion body seen on Resp Cytology - but this was held by Dr Hong to see if this is causing pt to be confused -Physical therapy - plan for d/c to [facility] once AMS improves
[2018-08-04] MEDS: Enoxaparin 40 mg Syringe SC SCH (09:49)
[2018-08-04] MEDS: Pantoprazole 20 mg EC Tab PO SCH (09:51)
[2018-08-04] MEDS: Multivitamin Vitamin B Complex (Nephro-Vite) Tab PO SCH (09:51)
--- NOTE | 2018-08-04 10:25 | CP.PCM.CON ---
History of Present Illness - History of Present Illness History of Present Illness: Psychiatry consult note CC: Confusion, now improving HPI: 87 yo female w/ h/o dementia, admitted w/ worsening abdominal pain, septic shock, acute respiratory failure, s/p ex lap, had a period of confusion w/ possible visual hallucinations, now resolved. Patient currently A + O x July 2018, [facility] and [facility]. She denies acute mood disturbance/AH/VH/paranoia. She is concerned about her medical health. Patient has chronic neurocognitive deficits. PMD: Dr. Orozco PPHx: Denies past psychiatric history; +Dementia PMHx: Hypertension, hyperlipidemia, GERD, insomnia, dementia, colon mass s/p resection >30 yrs ago. Surgical hx: Cholecystectomy, hx partial colectomy >30 yrs ago Social hx: From [place], lives alone, denies smoking cigarettes, drinking Etoh or using drugs Allergies: Percocet causes hallucination; Codeine causes rash Impression: 87 yo female w/ Major Neurocognitive Disorder w/o any acute behavi oral disturbances, no acute psychosis; likely had acute delirium secondary to multiple medical issues vs worsening major neurocognitive disorder. -No acute psychiatric medications indicated at this time -No acute psychiatric admission indicated at this time Past Patient History - Past Medical History & Family History Past Medical History?: Yes - Past Social History Smoking Status: Never Smoked Chewing Tobacco Use: No Cigar Use: No Alcohol: None Drugs: Denies Home Situation {Lives}: Alone - CARDIAC Hx Hypercholesterolemia: Yes Hx Hypertension: Yes - PULMONARY Hx Respiratory Disorders: No - NEUROLOGICAL Hx Dementia: Yes - MUSCULOSKELETAL/RHEUMATOLOGICAL Hx Falls: No - GASTROINTESTINAL Hx Gall Bladder Disease: Yes Hx Gastroesophageal Reflux: Yes Other/Comment: hx abdominal surgeries - PSYCHIATRIC Hx Substance Use: No - SURGICAL HISTORY Hx Cholecystectomy: Yes Other/Comment: Bowel resection, ?mass? - ANESTHESIA Hx Anesthesia: Yes Meds Home Medications: Home Medication List Medication Instructions Recorded Confirmed Type Acyclovir Sod in Dextrose 5 % 680 mg IV Q8 #12 piggyback 08/02/18 Rx [Acyclovir 200 mg/100 ml-D5w] Albuterol/Ipratropium [Duoneb 3 3 ml INH RQ6 PRN #0 neb 08/02/18 Rx mg/0.5 mg (3 ml) UD] Enoxaparin [Lovenox] 40 mg SC DAILY syr 08/02/18 Rx Multivit-Min/FA/Lycopen/Lutein 1 each PO DAILY #30 tablet 08/02/18 Rx [Adults 50 Plus Multivitamin] Pantoprazole [Protonix EC Tab] 20 mg PO DAILY ect 08/02/18 Rx Sulfamethoxazole/Trimethoprim 360 mg IV Q8 #14 vial 08/02/18 Rx [Bactrim IV 16 mg/ml-80 mg/ml] raNITIdine [Zantac Soln 5ml] 300 mg PO HS ml 08/02/18 Rx Allergies/Adverse Reactions: Allergies Allergy/AdvReac Type Severity Reaction Status Date / Time acetaminophen [From Percocet] Allergy RASH Verified 07/10/18 13:08 codeine Allergy RASH Verified 07/10/18 13:08 oxycodone [From Percocet] Allergy RASH Verified 07/10/18 13:08 - Medications Medications: Current Medications Albuterol/Ipratropium (Duoneb 3 Mg/0.5 Mg (3 Ml) Ud) 3 ml INH RQ6 PRN PRN Reason: Shortness of Breath Last Admin: 07/24/18 10:03 Dose: 3 ml Capsaicin (Trixaicin Cream) 1 applic TOP Q6 LEILA Last Admin: 08/04/18 09:50 Dose: 1 applic Donepezil HCl (Aricept) 10 mg NG HS [facility]IL[facility] Last Admin: 08/03/18 21:17 Dose: 10 mg Enoxaparin Sodium (Lovenox) 40 mg SC DAILY [facility]; Protocol Last Admin: 08/04/18 09:49 Dose: 40 mg Trimethoprim/Sulfamethoxazole (360 mg/ Dextrose) 340 mls @ 226.667 mls/hr IVPB Q8 [facility]ILA; Protocol Last Admin: 08/04/18 02:03 Dose: 226.667 mls/hr Acyclovir 600 mg/ Sodium (Chloride) 100 mls @ 100 mls/hr IV Q8 LEILA; Protocol Stop: 08/06/18 21:00 Last Admin: 08/04/18 09:50 Dose: 100 mls/hr Ketorolac Tromethamine (Toradol) 30 mg IVP Q6 PRN PRN Reason: Pain, severe (8-10) Last Admin: 08/01/18 11:07 Dose: 30 mg Mirtazapine (Remeron) 30 mg PO HS [facility] Last Admin: 08/03/18 21:17 Dose: 30 mg Pantoprazole Sodium (Protonix Ec Tab) 20 mg PO DAILY [facility] Last Admin: 08/04/18 09:51 Dose: 20 mg Pravastatin Sodium (Pravachol) 20 mg PO HS [facility] Last Admin: 08/03/18 21:17 Dose: 20 mg Quetiapine Fumarate (Seroquel) 25 mg PO HS [facility] Last Admin: 08/03/18 22:06 Dose: 25 mg Ranitidine HCl (Zantac Soln 5ml) 300 mg PO HS [facility] Last Admin: 08/03/18 21:17 Dose: 300 mg Vitamin B Complex/Vit C/Folic Acid (Nephro-Liliana) 1 tab PO DAILY [facility] Last Admin: 08/04/18 09:51 Dose: 1 tab Results - Vital Signs Recent Vital Signs: Last Vital Signs Temp 97.4 F L 08/04/18 08:21 Pulse 89 08/04/18 08:21 Resp 20 08/04/18 08:21 BP 120/69 08/04/18 08:21 Pulse Ox 93 L 08/04/18 08:21 - Labs Result Diagrams: 08/04/18 04:30 08/01/18 05:00 Labs: Laboratory Results - last 24 hr 08/04/18 04:30 WBC 7.2 RBC 3.05 L Hgb 9.4 L Hct 27.8 L MCV 91.3 MCH 30.8 MCHC 33.8 RDW 14.9 H Plt Count 274
--- NOTE | 2018-08-04 13:02 | CP.PCM.PN ---
<Tremayne Candelaria - Last Filed: 08/04/18 13:08> Subjective - Date & Time of Evaluation Date of Evaluation: 08/04/18 Time of Evaluation: 13:08 - Subjective Subjective: SURGERY NOTE FOR DR. ARREDONDO 87F seen and examined at bedside. Patient confused. She was started on antiviral for HSV on bronchial washings. Afterwards, developed delirium. Psych consult was placed for delirium/agitation. Objective - Vital Signs/Intake and Output Vital Signs (last 24 hours): Temp Pulse Resp BP Pulse Ox 98 F 95 H 20 104/59 L 94 L 08/04/18 12:45 08/04/18 12:45 08/04/18 12:45 08/04/18 12:45 08/04/18 12:45 - Medications Medications: Current Medications Albuterol/Ipratropium (Duoneb 3 Mg/0.5 Mg (3 Ml) Ud) 3 ml INH RQ6 PRN PRN Reason: Shortness of Breath Last Admin: 07/24/18 10:03 Dose: 3 ml Capsaicin (Trixaicin Cream) 1 applic TOP Q6 [facility] Last Admin: 08/04/18 09:50 Dose: 1 applic Donepezil HCl (Aricept) 10 mg NG HS [facility] Last Admin: 08/03/18 21:17 Dose: 10 mg Enoxaparin Sodium (Lovenox) 40 mg SC DAILY [facility]; Protocol Last Admin: 08/04/18 09:49 Dose: 40 mg Trimethoprim/Sulfamethoxazole (360 mg/ Dextrose) 340 mls @ 226.667 mls/hr IVPB Q8 [facility]; Protocol Last Admin: 08/04/18 11:14 Dose: 226.667 mls/hr Acyclovir 600 mg/ Sodium (Chloride) 100 mls @ 100 mls/hr IV Q8 [facility]; Protocol Stop: 08/06/18 21:00 Last Admin: 08/04/18 09:50 Dose: 100 mls/hr Ketorolac Tromethamine (Toradol) 30 mg IVP Q6 PRN PRN Reason: Pain, severe (8-10) Last Admin: 08/01/18 11:07 Dose: 30 mg Mirtazapine (Remeron) 30 mg PO HS [facility] Last Admin: 08/03/18 21:17 Dose: 30 mg Pantoprazole Sodium (Protonix Ec Tab) 20 mg PO DAILY [facility] Last Admin: 08/04/18 09:51 Dose: 20 mg Pravastatin Sodium (Pravachol) 20 mg PO [facility] Last Admin: 08/03/18 21:17 Dose: 20 mg Quetiapine Fumarate (Seroquel) 25 mg PO HS [facility] Last Admin: 08/03/18 22:06 Dose: 25 mg Ranitidine HCl (Zantac Soln 5ml) 300 mg PO [facility] Last Admin: 08/03/18 21:17 Dose: 300 mg Vitamin B Complex/Vit C/Folic Acid (Nephro-Liliana) 1 tab PO DAILY [facility] Last Admin: 08/04/18 09:51 Dose: 1 tab - Labs Labs: 08/04/18 04:30 08/01/18 05:00 PT 14.9 Seconds (9.8-13.1) H 07/18/18 05:00 INR 1.3 07/18/18 05:00 APTT 25.6 Seconds (25.6-37.1) 07/18/18 05:00 - Additional Findings Additional findings: Constitutional Appears: Non-toxic, No Acute Distress - Respiratory Exam Respiratory Exam: Clear to Auscultation Bilateral, NORMAL BREATHING PATTERN - Cardiovascular Exam Cardiovascular Exam: REGULAR RHYTHM, +S1, +S2 - GI/Abdominal Exam GI & Abdominal Exam: Soft. absent: Distended, Firm, Guarding, Rigid, Tenderness, Rebound - Neurological Exam Neurological Exam: Alert - Skin Skin Exam: Dry, Intact, Normal Color, Warm Assessment and Plan - Assessment and Plan (Free Text) Assessment: 87F s/p ex-lap SAILAJA, Repair of enterotomies*2 POD#23 Plan: - Management as per primary -Clear from surgical standpoint -Further recs discuss with Dr. Kobe Candelaria PGY2 <Wilder Bullock - Last Filed: 08/05/18 17:11> Objective - Vital Signs/Intake and Output Vital Signs (last 24 hours): Temp Pulse Resp BP Pulse Ox 98.1 F 84 18 103/58 L 94 L 08/05/18 16:22 08/05/18 16:22 08/05/18 16:22 08/05/18 16:22 08/05/18 16:22 - Medications Medications: Current Medications Albuterol/Ipratropium (Duoneb 3 Mg/0.5 Mg (3 Ml) Ud) 3 ml INH RQ6 PRN PRN Reason: Shortness of Breath Last Admin: 07/24/18 10:03 Dose: 3 ml Capsaicin (Trixaicin Cream) 1 applic TOP Q6 [facility] Last Admin: 08/05/18 15:16 Dose: 1 applic Dimethicone (Proshield Plus Skin Protectant) 1 applic TOP Q8 PRN PRN Reason: Incontinece Last Admin: 08/05/18 15:16 Dose: 1 applic Donepezil HCl (Aricept) 10 mg NG HS [facility] Last Admin: 08/04/18 22:46 Dose: 10 mg Enoxaparin Sodium (Lovenox) 40 mg SC DAILY [facility]; Protocol Last Admin: 08/05/18 10:17 Dose: 40 mg Trimethoprim/Sulfamethoxazole (360 mg/ Dextrose) 340 mls @ 226.667 mls/hr IVPB Q8 [facility]; Protocol Last Admin: 08/05/18 09:43 Dose: 226.667 mls/hr Acyclovir 600 mg/ Sodium (Chloride) 100 mls @ 100 mls/hr IV Q8 [facility]; Protocol Stop: 08/06/18 21:00 Last Admin: 08/04/18 09:50 Dose: 100 mls/hr Ketorolac Tromethamine (Toradol) 30 mg IVP Q6 PRN PRN Reason: Pain, severe (8-10) Last Admin: 08/01/18 11:07 Dose: 30 mg Mirtazapine (Remeron) 30 mg PO HS [facility] Last Admin: 08/04/18 22:47 Dose: 30 mg Pantoprazole Sodium (Protonix Ec Tab) 20 mg PO DAILY [facility] Last Admin: 08/05/18 10:16 Dose: Not Given Pravastatin Sodium (Pravachol) 20 mg PO HS [facility] Last Admin: 08/04/18 22:47 Dose: 20 mg Quetiapine Fumarate (Seroquel) 25 mg PO HS [facility] Last Admin: 08/04/18 22:46 Dose: 25 mg Ranitidine HCl (Zantac Soln 5ml) 300 mg PO HS [facility] Last Admin: 08/04/18 22:47 Dose: 300 mg - Labs Labs: 08/04/18 04:30 08/05/18 12:10 PT 14.9 Seconds (9.8-13.1) H 07/18/18 05:00 INR 1.3 07/18/18 05:00 APTT 25.6 Seconds (25.6-37.1) 07/18/18 05:00 Assessment and Plan - Assessment and Plan (Free Text) Assessment: All medical record entries made by the resident were at my direction. I have reviewed the chart and agree that the record accurately reflects my personal performance of the history, physical exam, and medical decision making.
--- NOTE | 2018-08-04 14:09 | CP.PCM.PN ---
Subjective - Date & Time of Evaluation Date of Evaluation: 08/04/18 Time of Evaluation: 14:07 - Subjective Subjective: ID Note- Pt. seen and examined today. pt. is AAO x 3 and answers all questions appropriately, however, she is very anxious and keepls fidgeting with her bedsheets and as oer her cousin who is at her bedside this started yesterday and they think might be after IV acyclovir was started. pt. states she is nervous because she has diarrhea . pt. does have h/o dementia as well. Objective - Vital Signs/Intake and Output Vital Signs (last 24 hours): Temp Pulse Resp BP Pulse Ox 98 F 95 H 20 104/59 L 94 L 08/04/18 12:45 08/04/18 12:45 08/04/18 12:45 08/04/18 12:45 08/04/18 12:45 - Medications Medications: Current Medications Albuterol/Ipratropium (Duoneb 3 Mg/0.5 Mg (3 Ml) Ud) 3 ml INH RQ6 PRN PRN Reason: Shortness of Breath Last Admin: 07/24/18 10:03 Dose: 3 ml Capsaicin (Trixaicin Cream) 1 applic TOP Q6 [facility] Last Admin: 08/04/18 09:50 Dose: 1 applic Donepezil HCl (Aricept) 10 mg NG HS [facility] Last Admin: 08/03/18 21:17 Dose: 10 mg Enoxaparin Sodium (Lovenox) 40 mg SC DAILY [facility]; Protocol Last Admin: 08/04/18 09:49 Dose: 40 mg Trimethoprim/Sulfamethoxazole (360 mg/ Dextrose) 340 mls @ 226.667 mls/hr IVPB Q8 [facility]; Protocol Last Admin: 08/04/18 11:14 Dose: 226.667 mls/hr Acyclovir 600 mg/ Sodium (Chloride) 100 mls @ 100 mls/hr IV Q8 [facility]; Protocol Stop: 08/06/18 21:00 Last Admin: 08/04/18 09:50 Dose: 100 mls/hr Ketorolac Tromethamine (Toradol) 30 mg IVP Q6 PRN PRN Reason: Pain, severe (8-10) Last Admin: 08/01/18 11:07 Dose: 30 mg Mirtazapine (Remeron) 30 mg PO HS [facility] Last Admin: 08/03/18 21:17 Dose: 30 mg Pantoprazole Sodium (Protonix Ec Tab) 20 mg PO DAILY [facility] Last Admin: 08/04/18 09:51 Dose: 20 mg Pravastatin Sodium (Pravachol) 20 mg PO [facility] Last Admin: 08/03/18 21:17 Dose: 20 mg Quetiapine Fumarate (Seroquel) 25 mg PO [facility] Last Admin: 08/03/18 22:06 Dose: 25 mg Ranitidine HCl (Zantac Soln 5ml) 300 mg PO [facility] Last Admin: 08/03/18 21:17 Dose: 300 mg Vitamin B Complex/Vit C/Folic Acid (Nephro-Liliana) 1 tab PO DAILY [facility] Last Admin: 08/04/18 09:51 Dose: 1 tab - Labs Labs: - Additional Findings Additional findings: Constitutional Appears: No Acute Distress Additional comments: awake and alert - Head Exam Head Exam: ATRAUMATIC - Eye Exam Eye Exam: EOMI, PERRL - Neck Exam Neck exam: Positive for: Full Rom - Respiratory Exam Additional comments: breath sounds heard b/l no wheezing slightly decreased at left base - Cardiovascular Exam Cardiovascular Exam: RRR, +S1, +S2 - GI/Abdominal Exam GI & Abdominal Exam: Soft Additional comments: mid lower abdomen surgical site with wound vac in place draining minimal serosanguinous fluid no erythema no tenderness soft - Extremities Exam Extremities exam: Positive for: normal inspection except 1+ LE edema B/L - Neurological Exam Neurological exam: AAO x 3 today but is anxcious and nervous Laboratory Results - last 72 hr 08/02/18 08/03/18 08/04/18 00:51 04:30 04:30 WBC 6.7 7.2 RBC 3.18 L 3.05 L Hgb 9.7 L 9.4 L Hct 29.4 L 27.8 L MCV 92.5 91.3 MCH 30.5 30.8 MCHC 33.0 33.8 RDW 14.8 H 14.9 H Plt Count 251 274 MPV 8.6 Neut % (Auto) 73.6 Lymph % (Auto) 12.9 L Alfalfa % (Auto) 11.0 H Eos % (Auto) 1.6 Baso % (Auto) 0.9 Neut # (Auto) 5.0 Lymph # (Auto) 0.9 L Alfalfa # (Auto) 0.7 Eos # (Auto) 0.1 Baso # (Auto) 0.1 Urine Color Yellow Urine Clarity Cloudy Urine pH 8.0 Ur Specific [place] 1.006 Urine Protein Negative Urine Glucose (UA) Neg Urine Ketones Negative Urine Blood Negative Urine Nitrate Negative Urine Bilirubin Negative Urine Urobilinogen 0.2-1.0 Ur Leukocyte Esterase Neg Urine RBC (Auto) 2 Urine Microscopic WBC 1 Ur Squamous Epith Cells 1 Hyaline Casts 0-2 Microbiology 07/25/18 12:46 Other: Please Indicate Fungal Culture - Preliminary 07/25/18 12:46 Other: Please Indicate Mycobacterial Culture - Preliminary 07/25/18 11:00 Bronchial Washings Bronchial Culture - Final Stenotrophomonas Maltophilia 07/21/18 20:12 Naris MRSA Culture (Admit) - Final MRSA NOT DETECTED 07/14/18 17:00 Blood-Venous Blood Culture - Final NO GROWTH AFTER 5 DAYS 07/14/18 17:00 Blood-Venous Gram Stain - Final TEST NOT PERFORMED 07/14/18 15:58 Blood-Venous Blood Culture - Final NO GROWTH AFTER 5 DAYS 07/14/18 15:58 Blood-Venous Gram Stain - Final TEST NOT PERFORMED 07/13/18 16:00 Blood-Venous Blood Culture - Final NO GROWTH AFTER 5 DAYS 07/13/18 16:00 Blood-Venous Gram Stain - Final TEST NOT PERFORMED 07/13/18 17:00 Blood-Venous Blood Culture - Final NO GROWTH AFTER 5 DAYS 07/13/18 17:00 Blood-Venous Gram Stain - Final TEST NOT PERFORMED 07/14/18 16:00 Sputum Gram Stain - Final 07/14/18 16:00 Sputum Sputum Culture - Final No growth. 07/13/18 17:21 Urine,Elizondo Urine Culture - Final No Growth (<1,000 CFU/ML) 07/10/18 19:55 Urine Random Urine Culture - Final Gram Negative [place] Assessment and Plan (1) Small bowel obstruction Status: Acute (2) Sepsis Status: Acute - Assessment and Plan (Free Text) Assessment: A/P- 87 year old female with multiple past medical history and s/p past hemicolectomy and reversal of colostomy who was admitted with abd . pain and found to have SBO and is POD #1 s/p Exploratory laparotomy, extenive lysis of adhesions, repair of enterotomies x 2, washout. anxious today afebrile leukocytosis has resolved now has mild leukopenia could be sec to bactrim. cxr improved as per report BAL cx- reported today stenotrophomonas ( light growth) blood cx- neg x 4 sputum cx- neg repeat urine cx- neg BAl path - ? HSV inclusion bodies plan- day #7 of bactrim for stenotrophomonas in BAL cx. advise 2 more days. monitor wbc while on bactrim. day #3 of acyclovir for herpes inclusion bodies that were reported on BAL path report. advise to hold acyclovir today and see if there is any change in level of anxiety of the patient and if no change resume acyclovir ( perhaps at lower dose) for few more days only. her anxiety could also be secondary to hospital delirium . completed 14 days of empiric meropnem and flagyl for intra-abd Infection. completed 8 days of vanco. wound vac management as per surgical team. All above d/w family practice team at length. All above d/w patient's family as well and they agree with above plan of care.
[2018-08-04] MEDS: Pravastatin Sodium 20 MG TAB PO SCH (22:47)
[2018-08-04] MEDS: raNITIdine HCl 150 mg/10 ml Soln Cup PO SCH (22:47)
[2018-08-05] MEDS: TRIMETHOPRIM IVPB SCH ×3 (01:50→17:27)
[2018-08-05] MEDS: WATER IVPB SCH ×3 (01:50→17:27)
[2018-08-05] MEDS: SULFAMETHOXAZOLE IVPB SCH ×3 (01:50→17:27)
[2018-08-05] MEDS: DEXTROSE 5% IVPB SCH ×3 (01:50→17:27)
--- NOTE | 2018-08-05 08:37 | CP.PCM.PN ---
Subjective - Date & Time of Evaluation Date of Evaluation: 08/05/18 Time of Evaluation: 08:50 - Subjective Subjective: Patient was seen and examined at bedside this morning in telemetry unit with attending Dr. Orozco. Patient is sleeping, but responsive to verbal stimuli. Oriented in person, and time, but disoriented in place. As per nurse's report, last night Pt noted to have loud conversation with herself, saying her daughter was here. Ativan given. Afebrile, vital signs stable. On [facility] for safety. On hold transfer to [facility] Objective - Vital Signs/Intake and Output Vital Signs (last 24 hours): Temp Pulse Resp BP Pulse Ox 97.6 F 74 18 112/67 96 08/05/18 07:56 08/05/18 07:56 08/05/18 07:56 08/05/18 07:56 08/05/18 07:56 - Medications Medications: Current Medications Albuterol/Ipratropium (Duoneb 3 Mg/0.5 Mg (3 Ml) Ud) 3 ml INH RQ6 PRN PRN Reason: Shortness of Breath Last Admin: 07/24/18 10:03 Dose: 3 ml Capsaicin (Trixaicin Cream) 1 applic TOP Q6 [facility] Last Admin: 08/05/18 04:03 Dose: 1 applic Donepezil HCl (Aricept) 10 mg NG HS [facility] Last Admin: 08/04/18 22:46 Dose: 10 mg Enoxaparin Sodium (Lovenox) 40 mg SC DAILY [facility]; Protocol Last Admin: 08/04/18 09:49 Dose: 40 mg Trimethoprim/Sulfamethoxazole (360 mg/ Dextrose) 340 mls @ 226.667 mls/hr IVPB Q8 [facility]; Protocol Last Admin: 08/05/18 01:50 Dose: 226.667 mls/hr Acyclovir 600 mg/ Sodium (Chloride) 100 mls @ 100 mls/hr IV Q8 [facility]; Protocol Stop: 08/06/18 21:00 Last Admin: 08/04/18 09:50 Dose: 100 mls/hr Ketorolac Tromethamine (Toradol) 30 mg IVP Q6 PRN PRN Reason: Pain, severe (8-10) Last Admin: 08/01/18 11:07 Dose: 30 mg Mirtazapine (Remeron) 30 mg PO HS [facility] Last Admin: 08/04/18 22:47 Dose: 30 mg Pantoprazole Sodium (Protonix Ec Tab) 20 mg PO DAILY [facility] Last Admin: 08/04/18 09:51 Dose: 20 mg Pravastatin Sodium (Pravachol) 20 mg PO [facility] Last Admin: 08/04/18 22:47 Dose: 20 mg Quetiapine Fumarate (Seroquel) 25 mg PO [facility] Last Admin: 08/04/18 22:46 Dose: 25 mg Ranitidine HCl (Zantac Soln 5ml) 300 mg PO [facility] Last Admin: 08/04/18 22:47 Dose: 300 mg Vitamin B Complex/Vit C/Folic Acid (Nephro-Liliana) 1 tab PO DAILY [facility] Last Admin: 08/04/18 09:51 Dose: 1 tab - Labs Labs: 08/04/18 04:30 08/01/18 05:00 PT 14.9 Seconds (9.8-13.1) H 07/18/18 05:00 INR 1.3 07/18/18 05:00 APTT 25.6 Seconds (25.6-37.1) 07/18/18 05:00 - Skin Additional comments: Skin Additional comments: Constitutional Appears: Non-toxic, No Acute Distress - ENT Exam ENT Exam: Mucous Membranes Dry - Respiratory Exam Respiratory Exam: Clear to Ausculation Bilateral (upper/middle lungs field, slightly decreased in lower lobes), NORMAL BREATHING PATTERN - Cardiovascular Exam Cardiovascular Exam: REGULAR RHYTHM, +S1, +S2 - GI/Abdominal Exam GI & Abdominal Exam: Soft, Normal Bowel Sounds. absent: Guarding, Rigid, Tenderness Additional comments: Wound Vac in placed - Extremities Exam Extremities Exam: Pedal Edema. absent: Calf Tenderness Additional comments: Edema 3+ of lower extremities, stable - Neurological Exam Neurological Exam: Alert, Awake, Oriented x3, incoherent speech Assessment and Plan - Assessment and Plan (Free Text) Assessment: 87 F who presents with septic shock, acute respiratory failure, elevated lactate, s/p exploratory laparotomy, lysis of adhesion, and repair of enterotomy x2 for SBO POD 24. Postoperatively her oral intake has been poor and her nutritional status has also been poor resulting in severe hypoalbuminemia. Patient with a fair amount of anasarca and low BP. Presenting with episodes o confusion, restlessness, and incoherent speech. Plan: AMS -acute medical condition in elderly/sundowning/ r/o medication side effects -h/o Dementia -associated with possible " visual hallucinations", restlessness, anxiety -f/u BMP, Mag, phos, vitamin B 12, RPR -Psychiatrist consulted, recs are appreciated. As per Psych, likely had acute delirium secondary to multiple medical issues vs worsening major neurocognitive disorder. 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 -on hold Acyclovir 600 mg Q8 since 08/04 (started on 08/02, dose decreased on 08/03, held on 08/04) 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 -ID notified of confusion/disorientation episode, ID specialist aware, no new recommendations at this time Deconditioning/weakness/Hypoalbuminuria -c/w Vitamin B complex -calories count -[employer] consult for nutritional support and supplementation -c/w Pros-tat -c/w Ensure -CMP/Mag/Phos this morning WNL -repeat UA negative, no proteinuria -promote oral intake -GFR >60, no proteinuria seen in last UA done on admission -c/w physical therapy Right PICC line( right arm) -for IV meds Abdominal open wound s/p Small bowel obstruction/ s/p ex laparotomy POD 24 -Wound vac dressing changes every 3 days while inpatient by surgical team. Last changed 08/02/18. -completed 14 days of empiric meropnem and flagyl for intra-abd Infection as per ID recs -completed 8 days of vanco as per ID recs Small bowel obstruction/ s/p ex laparotomy POD 24 - General surgery, Dr. Bullock on board - Pain management - Tolerating PO - encouraged incentive spirometry and OOB -Clear for discharge from surgical standpoint Bilateral Pleural effusion b/l Atelectasis -Repeat chest CT: stable pleural effusions, bibasilar atelectasis -Pulmonology consult, recs appreciated -s/p flexible broncho 07/25/18 -Bronchial culture Stenotrophomonas maltophilia noted in final report -c/w Bactrim 15 mg/kg Q8 h as per ID recommendations Day #8 -on NC at 2 lpm -respiratory therapy -Encouraged PT and OOB -continue with incentive spirometer S/p Non-Q wave myocardial infarction probably secondary to a brief period of hypotension Cardiology was consulted, Dr. Barone. h/o HTN improving -had BP in low normal levels without medication, likely 2/2 hypoalbuminemia 2/2 poor nutritional status 2/2 Poor PO intake -recalled Cardiology for re-evaluation. NO new recommendations at this time -repeat UA negative, no proteinuria -c/w BP monitor Hiatal hernia/GERD -c/w protonix 20 mg PO daily -c/w Ranitidine 300 mg HS Hyperlipidemia - resume pravastatin 20 mg po hs Cognitive impairment - aricept 10 mg HS Insomnia/anxiety - Mirtazapine 30 mg PO HS DVT prophylaxis - Lovenox 40 mg sc
[2018-08-05] MEDS: Pantoprazole 20 mg EC Tab PO SCH (10:16)
[2018-08-05] MEDS: Enoxaparin 40 mg Syringe SC SCH (10:17)
[2018-08-05 13:08] LABS: ALB/GLOB RATIO 1.1 (1.0-2.1); ALBUMIN 3.1 g/dL (3.5-5.0); ALT/SGPT 28 U/L (9-52); AST/SGOT 31 U/L (14-36); BLOOD UREA NITROGEN 7 mg/dl (7-17); CALCIUM 9.1 mg/dL (8.4-10.2); GFR NON-AFRICAN AMERICAN > 60
[2018-08-05] MEDS: Proshield Plus GEL TOP PRN (15:16)
[2018-08-05] MEDS: Pravastatin Sodium 20 MG TAB PO SCH ×2 (21:55→21:56)
[2018-08-05] MEDS: raNITIdine HCl 150 mg/10 ml Soln Cup PO SCH (21:57)
[2018-08-06] MEDS: SULFAMETHOXAZOLE IVPB SCH ×3 (01:08→17:11)
[2018-08-06] MEDS: TRIMETHOPRIM IVPB SCH ×3 (01:08→17:11)
[2018-08-06] MEDS: WATER IVPB SCH ×3 (01:08→17:11)
[2018-08-06] MEDS: DEXTROSE 5% IVPB SCH ×3 (01:08→17:11)
--- NOTE | 2018-08-06 07:01 | CP.PCM.PN ---
Subjective - Date & Time of Evaluation Date of Evaluation: 08/06/18 Time of Evaluation: 08:35 - Subjective Subjective: Patient was seen and examined at bedside this morning in telemetry unit with attending Dr. Orozco. Patient seen alert, awake, and oriented to person and time, disoriented to place. No events overnight. On [employer] for safety. Objective - Vital Signs/Intake and Output Vital Signs (last 24 hours): Temp Pulse Resp BP Pulse Ox 98.2 F 75 18 100/59 L 95 08/06/18 05:00 08/06/18 05:00 08/06/18 05:00 08/06/18 05:00 08/06/18 05:00 - Medications Medications: Current Medications Albuterol/Ipratropium (Duoneb 3 Mg/0.5 Mg (3 Ml) Ud) 3 ml INH RQ6 PRN PRN Reason: Shortness of Breath Last Admin: 07/24/18 10:03 Dose: 3 ml Capsaicin (Trixaicin Cream) 1 applic TOP Q6 [facility] Last Admin: 08/06/18 05:37 Dose: 1 applic Dimethicone (Proshield Plus Skin Protectant) 1 applic TOP Q8 PRN PRN Reason: Incontinece Last Admin: 08/05/18 15:16 Dose: 1 applic Donepezil HCl (Aricept) 10 mg NG HS [facility] Last Admin: 08/05/18 21:55 Dose: 10 mg Enoxaparin Sodium (Lovenox) 40 mg SC DAILY [facility]; Protocol Last Admin: 08/05/18 10:17 Dose: 40 mg Trimethoprim/Sulfamethoxazole (360 mg/ Dextrose) 340 mls @ 226.667 mls/hr IVPB Q8 [facility]; Protocol Last Admin: 08/06/18 01:08 Dose: 226.667 mls/hr Acyclovir 600 mg/ Sodium (Chloride) 100 mls @ 100 mls/hr IV Q8 [facility]; Protocol Stop: 08/06/18 21:00 Last Admin: 08/04/18 09:50 Dose: 100 mls/hr Ketorolac Tromethamine (Toradol) 30 mg IVP Q6 PRN PRN Reason: Pain, severe (8-10) Last Admin: 08/01/18 11:07 Dose: 30 mg Mirtazapine (Remeron) 30 mg PO HS [facility] Last Admin: 08/05/18 21:56 Dose: 30 mg Pantoprazole Sodium (Protonix Ec Tab) 20 mg PO [facility]ILY [facility] Last Admin: 08/05/18 10:16 Dose: Not Given Pravastatin Sodium (Pravachol) 20 mg PO [facility] Last Admin: 08/05/18 21:56 Dose: 20 mg Quetiapine Fumarate (Seroquel) 25 mg PO [facility] Last Admin: 08/05/18 23:17 Dose: Not Given Ranitidine HCl (Zantac Soln 5ml) 300 mg PO [facility] Last Admin: 08/05/18 21:57 Dose: 300 mg - Labs Labs: 08/04/18 04:30 08/05/18 12:10 PT 14.9 Seconds (9.8-13.1) H 07/18/18 05:00 INR 1.3 07/18/18 05:00 APTT 25.6 Seconds (25.6-37.1) 07/18/18 05:00 - Skin Additional comments: Constitutional Appears: Non-toxic, No Acute Distress - ENT Exam ENT Exam: Mucous Membranes Dry - Respiratory Exam Respiratory Exam: Clear to Ausculation Bilateral , NORMAL BREATHING PATTERN - Cardiovascular Exam Cardiovascular Exam: REGULAR RHYTHM, +S1, +S2 - GI/Abdominal Exam GI & Abdominal Exam: Soft, Normal Bowel Sounds. absent: Guarding, Rigid, T enderness Additional comments: Wound Vac in placed - Extremities Exam Extremities Exam: Pedal Edema. absent: Calf Tenderness Additional comments: Edema 3+ of lower extremities, improving - Neurological Exam Neurological Exam: Alert, Awake, Oriented x2,disoriented in place Assessment and Plan - Assessment and Plan (Free Text) Assessment: 87 F who presents with septic shock, acute respiratory failure, elevated lactate, s/p exploratory laparotomy, lysis of adhesion, and repair of enterotomy x2 for SBO POD 25. Postoperatively her oral intake has been poor and her nutriti onal status has also been poor resulting in severe hypoalbuminemia. Patient with a fair amount of anasarca and low BP. Presenting with episodes o confusion, restlessness, and incoherent speech. Transfer to [facility] on hold due to changes in mental status. Plan: AMS -improving today -acute medical condition in elderly/ -h/o Dementia -associated with possible " visual hallucinations", restlessness, anxiety -repeat BMP, Mag, phos, vitamin B 12 unremarkable, RPR: non reactive -Psychiatrist consulted, recs are appreciated. As per Psych, likely had acute delirium secondary to multiple medical issues vs worsening major neurocognitive disorder. 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 PMD discussed with ID. AMS likely secondaryto acute delirium secondary to multiple medical issues vs worsening major neurocognitive disorder. 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 Deconditioning/weakness/Hypoalbuminemia -improving hypoalbuminemia -repeat albumin 3.1 -c/w Vitamin B complex -Clinical Fellow consult for nutritional support and supplementation -c/w Pros-tat, and Ensure -CMP/Mag/Phos this morning WNL -repeat UA negative, no proteinuria -promote oral intake -GFR >60, no proteinuria seen in last UA done on admission -c/w physical therapy Right PICC line( right arm) -for IV meds Abdominal open wound s/p Small bowel obstruction/ s/p ex laparotomy POD 25 -Wound vac dressing changes every 3 days while inpatient by surgical team. Last changed 08/02/18. -completed 14 days of empiric meropnem and flagyl for intra-abd Infection as per ID recs -completed 8 days of vanco as per ID recs Small bowel obstruction/ s/p ex laparotomy POD 25 - General surgery, Dr. Bullock on board - Pain management - Tolerating PO - encouraged incentive spirometry and OOB -Clear for discharge from surgical standpoint Bilateral Pleural effusion b/l Atelectasis -Repeat chest CT: stable pleural effusions, bibasilar atelectasis -Pulmonology consult, recs appreciated -s/p flexible broncho 07/25/18 -Bronchial culture Stenotrophomonas maltophilia noted in final report -c/w Bactrim 15 mg/kg Q8 h as per ID recommendations -on NC at 2 lpm -respiratory therapy -Encouraged PT and OOB -continue with incentive spirometer S/p Non-Q wave myocardial infarction probably secondary to a brief period of hypotension Cardiology was consulted, Dr. Barone. h/o HTN improving -had BP in low normal levels without medication, likely 2/2 hypoalbuminemia 2/2 poor nutritional status 2/2 Poor PO intake -recalled Cardiology for re-evaluation. NO new recommendations at this time -repeat UA negative, no proteinuria -c/w BP monitor Hiatal hernia/GERD -c/w protonix 20 mg PO daily -c/w Ranitidine 300 mg HS Hyperlipidemia - resume pravastatin 20 mg po hs Cognitive impairment - aricept 10 mg HS Insomnia/anxiety - Mirtazapine 30 mg PO HS DVT prophylaxis - Lovenox 40 mg sc
--- NOTE | 2018-08-06 08:05 | CP.PCM.PN ---
<Patti Higginbotham - Last Filed: 08/06/18 08:16> Subjective - Date & Time of Evaluation Date of Evaluation: 08/06/18 Time of Evaluation: 08:05 - Subjective Subjective: General Surgery Note: Dr. Mendez Patient seen and examined at bedside this am. Patient resting comfortably and in NAD. Per chart, no acute events overnight. Patient alert this morning and responding appropriately to questions. Denies nausea/vomiting/fever /chills/chest pain. Objective - Vital Signs/Intake and Output Vital Signs (last 24 hours): Temp Pulse Resp BP Pulse Ox 98.1 F 77 18 107/66 92 L 08/06/18 07:48 08/06/18 07:48 08/06/18 07:48 08/06/18 07:48 08/06/18 07:48 - Medications Medications: Current Medications Albuterol/Ipratropium (Duoneb 3 Mg/0.5 Mg (3 Ml) Ud) 3 ml INH RQ6 PRN PRN Reason: Shortness of Breath Last Admin: 07/24/18 10:03 Dose: 3 ml Capsaicin (Trixaicin Cream) 1 applic TOP Q6 [facility] Last Admin: 08/06/18 05:37 Dose: 1 applic Dimethicone (Proshield Plus Skin Protectant) 1 applic TOP Q8 PRN PRN Reason: Incontinece Last Admin: 08/05/18 15:16 Dose: 1 applic Donepezil HCl (Aricept) 10 mg NG HS [facility] Last Admin: 08/05/18 21:55 Dose: 10 mg Enoxaparin Sodium (Lovenox) 40 mg SC DAILY [facility]; Protocol Last Admin: 08/05/18 10:17 Dose: 40 mg Trimethoprim/Sulfamethoxazole (360 mg/ Dextrose) 340 mls @ 226.667 mls/hr IVPB Q8 [facility]; Protocol Last Admin: 08/06/18 01:08 Dose: 226.667 mls/hr Acyclovir 600 mg/ Sodium (Chloride) 100 mls @ 100 mls/hr IV Q8 [facility]; Protocol Stop: 08/06/18 21:00 Last Admin: 08/04/18 09:50 Dose: 100 mls/hr Ketorolac Tromethamine (Toradol) 30 mg IVP Q6 PRN PRN Reason: Pain, severe (8-10) Last Admin: 08/01/18 11:07 Dose: 30 mg Mirtazapine (Remeron) 30 mg PO [facility] Last Admin: 08/05/18 21:56 Dose: 30 mg Pantoprazole Sodium (Protonix Ec Tab) 20 mg PO DAILY [facility] Last Admin: 08/05/18 10:16 Dose: Not Given Pravastatin Sodium (Pravachol) 20 mg PO [facility] Last Admin: 08/05/18 21:56 Dose: 20 mg Quetiapine Fumarate (Seroquel) 25 mg PO [facility] Last Admin: 08/05/18 23:17 Dose: Not Given Ranitidine HCl (Zantac Soln 5ml) 300 mg PO [facility] Last Admin: 08/05/18 21:57 Dose: 300 mg - Labs Labs: 08/04/18 04:30 08/05/18 12:10 PT 14.9 Seconds (9.8-13.1) H 07/18/18 05:00 INR 1.3 07/18/18 05:00 APTT 25.6 Seconds (25.6-37.1) 07/18/18 05:00 - Constitutional Appears: Non-toxic, No Acute Distress - Head Exam Head Exam: ATRAUMATIC, NORMOCEPHALIC - Eye Exam Eye Exam: Normal appearance - ENT Exam ENT Exam: Mucous Membranes Moist - Respiratory Exam Respiratory Exam: NORMAL BREATHING PATTERN - Cardiovascular Exam Cardiovascular Exam: REGULAR RHYTHM - GI/Abdominal Exam GI & Abdominal Exam: Soft Additional comments: Wound vac in place, changed yesterday - Extremities Exam Extremities Exam: Normal Capillary Refill. absent: Calf Tenderness - Neurological Exam Neurological Exam: Alert, Awake - Psychiatric Exam Psychiatric exam: Normal Affect, Normal Mood - Skin Skin Exam: Intact, Warm Assessment and Plan - Assessment and Plan (Free Text) Assessment: 87 year old female patient s/p ex-lap, lysis of adhesions, and repair of enterotomy x2 for SBO POD#25 Plan: - Management as per primary - Clear from surgical standpoint - Wound vac changed (08/05/2018) - Further recs discuss with Dr. Kobe Higginbotham PGY1 <Wilder Bullock - Last Filed: 08/12/18 17:38> Objective - Vital Signs/Intake and Output Vital Signs (last 24 hours): Temp Pulse Resp BP Pulse Ox 97.9 F 89 20 110/57 L 95 08/10/18 12:00 08/10/18 12:00 08/10/18 12:00 08/10/18 12:00 08/10/18 12:00 - Labs Labs: 08/07/18 05:10 08/05/18 12:10 PT 14.9 Seconds (9.8-13.1) H 07/18/18 05:00 INR 1.3 07/18/18 05:00 APTT 25.6 Seconds (25.6-37.1) 07/18/18 05:00 Assessment and Plan - Assessment and Plan (Free Text) Plan: All medical record entries made by the resident were at my direction. I have reviewed the chart and agree that the record accurately reflects my personal performance of the history, physical exam, and medical decision making.
[2018-08-06] MEDS: Enoxaparin 40 mg Syringe SC SCH (10:16)
[2018-08-06] MEDS: Pantoprazole 20 mg EC Tab PO SCH (10:17)
[2018-08-06] MEDS: Proshield Plus GEL TOP PRN ×2 (10:18→15:08)
[2018-08-06] MEDS: Pravastatin Sodium 20 MG TAB PO SCH (21:51)
[2018-08-06] MEDS: raNITIdine HCl 150 mg/10 ml Soln Cup PO SCH (21:52)
[2018-08-07] MEDS: SULFAMETHOXAZOLE IVPB SCH ×3 (00:46→16:38)
[2018-08-07] MEDS: WATER IVPB SCH ×3 (00:46→16:38)
[2018-08-07] MEDS: TRIMETHOPRIM IVPB SCH ×3 (00:46→16:38)
[2018-08-07] MEDS: DEXTROSE 5% IVPB SCH ×3 (00:46→16:38)
[2018-08-07 06:21] LABS: BASO # 0.1 K/uL (0.0-0.2); BASO % 0.7 % (0.0-2.0); EOS # 0.2 K/uL (0.0-0.7); EOS % 2.2 % (0.0-4.0); HEMOGLOBIN 9.9 g/dL (12.0-16.0); LYMPH # 1.6 K/uL (1.0-4.3); LYMPH % 19.5 % (20.0-40.0); MEAN CELL VOLUME 92.6 fl (81.0-99.0); MEAN CORPUSCULAR HEMOGLOBIN 30.3 pg (27.0-31.0); MEAN CORPUSCULAR HGB CONC 32.7 g/dL (33.0-37.0); MEAN PLATELET VOLUME 7.8 fl (7.2-11.7); MONO # 0.8 K/uL (0.0-0.8); MONO % 10.3 % (0.0-10.0); NEUT # 5.4 K/uL (1.8-7.0); NEUT % 67.3 % (50.0-75.0); NRBC % 0.1 % (0.0-0.0); RBC 3.27 Mil/uL (3.80-5.20); RED CELL DISTRIBUTION WIDTH 14.7 % (11.5-14.5)
--- NOTE | 2018-08-07 06:50 | CP.PCM.PN ---
Subjective - Date & Time of Evaluation Date of Evaluation: 08/07/18 Time of Evaluation: 08:15 - Subjective Subjective: Patient was seen and examined at bedside in telemetry unit this morning. Seen alert, awake and oriented x 2, disoriented in place, however re-oriented. Reports she feels cold. Has been afebrile, and rest of VS stable. As per nurse's report, patient was trying to climb out of bed, and was unable to redirect. On [employer] for safety. Objective - Vital Signs/Intake and Output Vital Signs (last 24 hours): Temp Pulse Resp BP Pulse Ox 97.6 F 96 H 18 96/60 L 95 08/07/18 05:03 08/07/18 05:03 08/07/18 05:03 08/07/18 05:03 08/07/18 05:03 - Medications Medications: Current Medications Capsaicin (Trixaicin Cream) 1 applic TOP Q6 [facility] Last Admin: 08/07/18 04:03 Dose: 1 applic Dimethicone (Proshield Plus Skin Protectant) 1 applic TOP Q8 PRN PRN Reason: Incontinece Last Admin: 08/06/18 15:08 Dose: 1 applic Donepezil HCl (Aricept) 10 mg NG HS [facility] Last Admin: 08/06/18 21:51 Dose: 10 mg Enoxaparin Sodium (Lovenox) 40 mg SC DAILY [facility]; Protocol Last Admin: 08/06/18 10:16 Dose: 40 mg Trimethoprim/Sulfamethoxazole (360 mg/ Dextrose) 340 mls @ 226.667 mls/hr IVPB Q8 [facility]; Protocol Last Admin: 08/07/18 00:46 Dose: 226.667 mls/hr Ketorolac Tromethamine (Toradol) 30 mg IVP Q6 PRN PRN Reason: Pain, severe (8-10) Last Admin: 08/01/18 11:07 Dose: 30 mg Mirtazapine (Remeron) 30 mg PO HS [facility] Last Admin: 08/06/18 21:51 Dose: 30 mg Pantoprazole Sodium (Protonix Ec Tab) 20 mg PO DAILY [facility] Last Admin: 08/06/18 10:17 Dose: 20 mg Pravastatin Sodium (Pravachol) 20 mg PO HS [facility] Last Admin: 08/06/18 21:51 Dose: 20 mg Quetiapine Fumarate (Seroquel) 25 mg PO [facility] Last Admin: 08/06/18 21:51 Dose: 25 mg Ranitidine HCl (Zantac Soln 5ml) 300 mg PO [facility] Last Admin: 08/06/18 21:52 Dose: 300 mg - Labs Labs: 08/07/18 05:10 08/05/18 12:10 PT 14.9 Seconds (9.8-13.1) H 07/18/18 05:00 INR 1.3 07/18/18 05:00 APTT 25.6 Seconds (25.6-37.1) 07/18/18 05:00 - Skin Additional comments: Skin Additional comments: Constitutional Appears: Non-toxic, No Acute Distress - ENT Exam ENT Exam: Mucous Membranes Dry - Respiratory Exam Respiratory Exam: Clear to Ausculation Bilateral , NORMAL BREATHING PATTERN - Cardiovascular Exam Cardiovascular Exam: REGULAR RHYTHM, +S1, +S2 - GI/Abdominal Exam GI & Abdominal Exam: Soft, Normal Bowel Sounds. absent: Guarding, Rigid, Tenderness Additional comments: Wound Vac in placed - Extremities Exam Extremities Exam: Pedal Edema. absent: Calf Tenderness Additional comments: Edema 3+ of lower extremities,unchanged since yesterday - Neurological Exam Neurological Exam: Alert, Awake, Oriented x2,disoriented in place Assessment and Plan - Assessment and Plan (Free Text) Assessment: 87 F who presents with septic shock, acute respiratory failure, elevated lactate, s/p exploratory laparotomy, lysis of adhesion, and repair of enterotomy x2 for SBO POD 26. Postoperatively her oral intake has been poor and her nutritional status has also been poor resulting in severe hypoalbuminemia. Patient with a fair amount of anasarca and low BP. Presenting with episodes o confusion, restlessness, and incoherent speech. Transfer to [facility] on hold due to changes in mental status. Plan: AMS -once stable she could be transferred to [facility] -stable since yesterday, however she had an episode of increase in disorientation and being restless last night -likely to delirium in elderly with medical illness -h/o Dementia -associated with possible " visual hallucinations", restlessness, anxiety -repeat BMP, Mag, phos, vitamin B 12 unremarkable, RPR: non reactive -Psychiatrist consulted, recs are appreciated. As per Psych, likely had acute delirium secondary to multiple medical issues vs worsening major neurocognitive disorder. 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 PMD discussed with ID. AMS likely secondaryto acute delirium secondary to multiple medical issues vs worsening major neurocognitive disorder. 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 Deconditioning/weakness/Hypoalbuminemia -improving hypoalbuminemia -repeat albumin 3.1 -dc Vitamin B complex due to elevated Vitamin B 12 levels -Medical Support Specialist consult for nutritional support and supplementation -c/w Pros-tat, and Ensure -CMP/Mag/Phos this morning WNL -repeat UA negative, no proteinuria -promote oral intake -GFR >60, no proteinuria seen in last UA done on admission -c/w physical therapy Right PICC line( right arm) -for IV meds Abdominal open wound s/p Small bowel obstruction/ s/p ex laparotomy POD 26 -Wound vac dressing changes every 3 days while inpatient by surgical team. Last changed 08/02/18. -completed 14 days of empiric meropnem and flagyl for intra-abd Infection as per ID recs -completed 8 days of vanco as per ID recs Small bowel obstruction/ s/p ex laparotomy POD 26 - General surgery, Dr. Bullock on board - Pain management - Tolerating PO - encouraged incentive spirometry and OOB -Clear for discharge from surgical standpoint Bilateral Pleural effusion b/l Atelectasis -Repeat chest CT: stable pleural effusions, bibasilar atelectasis -Pulmonology consult, recs appreciated -s/p flexible broncho 07/25/18 -Bronchial culture Stenotrophomonas maltophilia noted in final report -c/w Bactrim 15 mg/kg Q8 h as per ID recommendations -on NC at 2 lpm -respiratory therapy -Encouraged PT and OOB -continue with incentive spirometer S/p Non-Q wave myocardial infarction probably secondary to a brief period of hypotension Cardiology was consulted, Dr. Barone. h/o HTN stable -had BP in low normal levels without medication, likely 2/2 hypoalbuminemia 2/2 poor nutritional status 2/2 Poor PO intake -recalled Cardiology for re-evaluation. NO new recommendations at this time -repeat UA negative, no proteinuria -c/w BP monitor Hiatal hernia/GERD -c/w protonix 20 mg PO daily -c/w Ranitidine 300 mg HS Hyperlipidemia - resume pravastatin 20 mg po hs Cognitive impairment - aricept 10 mg HS Insomnia/anxiety - Mirtazapine 30 mg PO HS DVT prophylaxis - Lovenox 40 mg sc
[2018-08-07] MEDS: Enoxaparin 40 mg Syringe SC SCH (08:29)
[2018-08-07] MEDS: Pantoprazole 20 mg EC Tab PO SCH (08:30)
--- NOTE | 2018-08-07 10:49 | CP.PCM.PN ---
<Emily Colvin - Last Filed: 08/07/18 15:25> Subjective - Date & Time of Evaluation Date of Evaluation: 08/07/18 Time of Evaluation: 09:55 - Subjective Subjective: Surgery: Mendez Patient's wound vac changed today at bedside, tolerated well Objective - Vital Signs/Intake and Output Vital Signs (last 24 hours): Temp Pulse Resp BP Pulse Ox 97.5 F L 92 H 20 117/67 90 L 08/07/18 08:00 08/07/18 08:00 08/07/18 08:00 08/07/18 08:00 08/07/18 08:00 - Medications Medications: Current Medications Capsaicin (Trixaicin Cream) 1 applic TOP Q6 [facility] Last Admin: 08/07/18 09:03 Dose: 1 applic Dimethicone (Proshield Plus Skin Protectant) 1 applic TOP Q8 PRN PRN Reason: Incontinece Last Admin: 08/06/18 15:08 Dose: 1 applic Donepezil HCl (Aricept) 10 mg NG HS [facility] Last Admin: 08/06/18 21:51 Dose: 10 mg Enoxaparin Sodium (Lovenox) 40 mg SC DAILY [facility]; Protocol Last Admin: 08/07/18 08:29 Dose: 40 mg Trimethoprim/Sulfamethoxazole (360 mg/ Dextrose) 340 mls @ 226.667 mls/hr IVPB Q8 [facility]; Protocol Last Admin: 08/07/18 09:05 Dose: 226.667 mls/hr Ketorolac Tromethamine (Toradol) 30 mg IVP Q6 PRN PRN Reason: Pain, severe (8-10) Last Admin: 08/01/18 11:07 Dose: 30 mg Mirtazapine (Remeron) 30 mg PO HS [facility] Last Admin: 08/06/18 21:51 Dose: 30 mg Pantoprazole Sodium (Protonix Ec Tab) 20 mg PO DAILY [facility] Last Admin: 08/07/18 08:30 Dose: 20 mg Pravastatin Sodium (Pravachol) 20 mg PO HS [facility] Last Admin: 08/06/18 21:51 Dose: 20 mg Quetiapine Fumarate (Seroquel) 25 mg PO HS [facility] Last Admin: 08/06/18 21:51 Dose: 25 mg Ranitidine HCl (Zantac Soln 5ml) 300 mg PO HS [facility] Last Admin: 08/06/18 21:52 Dose: 300 mg - Labs Labs: 08/07/18 05:10 08/05/18 12:10 PT 14.9 Seconds (9.8-13.1) H 07/18/18 05:00 INR 1.3 07/18/18 05:00 APTT 25.6 Seconds (25.6-37.1) 07/18/18 05:00 - Constitutional Appears: Well, Non-toxic, No Acute Distress - Head Exam Head Exam: ATRAUMATIC, NORMOCEPHALIC - Eye Exam Eye Exam: EOMI - ENT Exam ENT Exam: Mucous Membranes Moist - Respiratory Exam Respiratory Exam: NORMAL BREATHING PATTERN - Cardiovascular Exam Cardiovascular Exam: REGULAR RHYTHM - GI/Abdominal Exam GI & Abdominal Exam: Soft. absent: Tenderness Assessment and Plan - Assessment and Plan (Free Text) Assessment: 87F s/p ex-lap SAILAJA, Repair of enterotomies*2 POD#26 Plan: - wound vac changed today - next change 08/09 - pt remains clear from surgical standpoint - further recs per Dr. Dumont, PGY 1 <Wilder Bullock - Last Filed: 08/12/18 17:36> Objective - Vital Signs/Intake and Output Vital Signs (last 24 hours): Temp Pulse Resp BP Pulse Ox 97.9 F 89 20 110/57 L 95 08/10/18 12:00 08/10/18 12:00 08/10/18 12:00 08/10/18 12:00 08/10/18 12:00 - Labs Labs: 08/07/18 05:10 08/05/18 12:10 PT 14.9 Seconds (9.8-13.1) H 07/18/18 05:00 INR 1.3 07/18/18 05:00 APTT 25.6 Seconds (25.6-37.1) 07/18/18 05:00 Assessment and Plan - Assessment and Plan (Free Text) Plan: All medical record entries made by the resident were at my direction. I have reviewed the chart and agree that the record accurately reflects my personal performance of the history, physical exam, and medical decision making.
[2018-08-07] MEDS: Pravastatin Sodium 20 MG TAB PO SCH (21:33)
[2018-08-07] MEDS: raNITIdine HCl 150 mg/10 ml Soln Cup PO SCH (22:00)
[2018-08-08] MEDS: TRIMETHOPRIM IVPB SCH ×3 (00:55→18:24)
[2018-08-08] MEDS: SULFAMETHOXAZOLE IVPB SCH ×3 (00:55→18:24)
[2018-08-08] MEDS: WATER IVPB SCH ×3 (00:55→18:24)
[2018-08-08] MEDS: DEXTROSE 5% IVPB SCH ×3 (00:55→18:24)
--- NOTE | 2018-08-08 09:08 | CP.PCM.PN ---
Subjective - Date & Time of Evaluation Date of Evaluation: 08/08/18 Time of Evaluation: 08:35 - Subjective Subjective: Patient was seen and examined at bedside in telemetry unit this morning. Seen alert, awake and oriented x 3 this morning. No events overnight. Has been afebrile, and rest of VS stable. Patient has being getting Bactrim and Acyclovir as scheduled. Mental status in her baseline. Checked with pharmacy: patient needs 4 more doses of Bactrim and acyclovir to complete 10 days and 5 days of treatment respectively. Wound Vac will be changed today by surgery. Objective - Vital Signs/Intake and Output Vital Signs (last 24 hours): Temp Pulse Resp BP Pulse Ox 97.7 F 80 20 116/66 96 08/08/18 08:29 08/08/18 08:29 08/08/18 08:29 08/08/18 08:29 08/08/18 08:29 - Medications Medications: Current Medications Acetaminophen (Tylenol 325mg Tab) 650 mg PO Q4 PRN PRN Reason: Pain, Mild (1-3) Capsaicin (Trixaicin Cream) 1 applic TOP Q6 [facility] Last Admin: 08/08/18 04:30 Dose: Not Given Dimethicone (Proshield Plus Skin Protectant) 1 applic TOP Q8 PRN PRN Reason: Incontinece Last Admin: 08/06/18 15:08 Dose: 1 applic Donepezil HCl (Aricept) 10 mg NG HS [facility] Last Admin: 08/07/18 21:33 Dose: 10 mg Enoxaparin Sodium (Lovenox) 40 mg SC DAILY [facility]; Protocol Last Admin: 08/07/18 08:29 Dose: 40 mg Trimethoprim/Sulfamethoxazole (360 mg/ Dextrose) 340 mls @ 226.667 mls/hr IVPB Q8 [facility]; Protocol Last Admin: 08/08/18 00:55 Dose: 226.667 mls/hr Acyclovir 600 mg/ Sodium (Chloride) 100 mls @ 100 mls/hr IVPB Q8 [facility]; Protocol Last Admin: 08/08/18 02:38 Dose: 100 mls/hr Mirtazapine (Remeron) 30 mg PO HS [facility] Last Admin: 08/07/18 21:33 Dose: 30 mg Pantoprazole Sodium (Protonix Ec Tab) 20 mg PO DAILY [facility] Last Admin: 08/07/18 08:30 Dose: 20 mg Pravastatin Sodium (Pravachol) 20 mg PO [facility] Last Admin: 08/07/18 21:33 Dose: 20 mg Quetiapine Fumarate (Seroquel) 25 mg PO [facility] Last Admin: 08/07/18 21:32 Dose: 25 mg Ranitidine HCl (Zantac Soln 5ml) 300 mg PO [facility] Last Admin: 08/07/18 22:00 Dose: 300 mg - Labs Labs: 08/07/18 05:10 08/05/18 12:10 PT 14.9 Seconds (9.8-13.1) H 07/18/18 05:00 INR 1.3 07/18/18 05:00 APTT 25.6 Seconds (25.6-37.1) 07/18/18 05:00 - Skin Additional comments: Constitutional Appears: Non-toxic, No Acute Distress - ENT Exam ENT Exam: Mucous Membranes Dry - Respiratory Exam Respiratory Exam: Clear to Ausculation Bilateral , NORMAL BREATHING PATTERN - Cardiovascular Exam Cardiovascular Exam: REGULAR RHYTHM, +S1, +S2 - GI/Abdominal Exam GI & Abdominal Exam: Soft, Normal Bowel Sounds. absent: Guarding, Rigid, Tenderness Additional comments: Wound Vac in placed - Extremities Exam Extremities Exam: Pedal Edema. absent: Calf Tenderness Additional comments: Edema 3+ of lower extremities,unchanged since yesterday - Neurological Exam Neurological Exam: Alert, Awake, Oriented x 3 Assessment and Plan - Assessment and Plan (Free Text) Assessment: 87 F who presents with septic shock, acute respiratory failure, elevated lactate, s/p exploratory laparotomy, lysis of adhesion, and repair of enterotomy x2 for SBO POD 27. Postoperatively her oral intake has been poor and her nutritional status has also been poor resulting in severe hypoalbuminemia. Patient with a fair amount of anasarca and low BP. Presenting with episodes o confusion, restlessness, and incoherent speech. Transfer to [facility] on hold due to changes in mental status. Plan: AMS -improving, in her baseline -once stable she could be transferred to [facility] -likely to delirium in elderly with medical illness -h/o Dementia -associated with possible " visual hallucinations", restlessness, anxiety -repeat BMP, Mag, phos, vitamin B 12 unremarkable, RPR: non reactive -Psychiatrist consulted, recs are appreciated. As per Psych, likely had acute delirium secondary to multiple medical issues vs worsening major neurocognitive disorder. No recs at this time -c/w seroquel 25 mg PO HS -as per PCP patient had similar episode in the past, h/o dementia with intermittent episodes of confusion Diarrheas -non bloody -test for C diff -contact isolation Stenotrophomonas maltophilia culture infection in Bronchial culture -Bronchial culture Stenotrophomonas maltophilia noted in final report -checked with pharmacy: c/w Bactrim 360 mg IV Q8, needs 4 more doses to complete 10 days of treatment -per ID recs will complete 10 days of Bactrim (correction: last day :08/09/18) -CBC this AM: WBC: WNL -repeat CXR on 08/02/18 reported improvement -f/u ID recommendations 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 PMD discussed with ID. AMS likely secondaryto acute delirium secondary to multiple medical issues vs worsening major neurocognitive disorder. -checked with pharmacy: patient will need 4 more doses (last day 08/09). 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 Deconditioning/weakness/Hypoalbuminemia -improving hypoalbuminemia -repeat albumin 3.1 -dc Vitamin B complex due to elevated Vitamin B 12 levels -Client Coordinator consult for nutritional support and supplementation -c/w Pros-tat, and Ensure -CMP/Mag/Phos this morning WNL -repeat UA negative, no proteinuria -promote oral intake -GFR >60, no proteinuria seen in last UA done on admission -c/w physical therapy Right PICC line( right arm) -for IV meds Abdominal open wound s/p Small bowel obstruction/ s/p ex laparotomy POD 27 -Wound vac dressing changes every 3 days while inpatient by surgical team. Last changed 08/08/18. Next change scheduled for 08/09 -completed 14 days of empiric meropnem and flagyl for intra-abd Infection as per ID recs -completed 8 days of vanco as per ID recs Small bowel obstruction/ s/p ex laparotomy POD 27 - General surgery, Dr. Bullock on board - Pain management - Tolerating PO - encouraged incentive spirometry and OOB -Clear for discharge from surgical standpoint Bilateral Pleural effusion b/l Atelectasis -Repeat chest CT: stable pleural effusions, bibasilar atelectasis -Pulmonology consult, recs appreciated -s/p flexible broncho 07/25/18 -Bronchial culture Stenotrophomonas maltophilia noted in final report -c/w Bactrim 15 mg/kg Q8 h as per ID recommendations -on NC at 2 lpm -respiratory therapy -Encouraged PT and OOB -continue with incentive spirometer S/p Non-Q wave myocardial infarction probably secondary to a brief period of hypotension Cardiology was consulted, Dr. Barone. h/o HTN stable -had BP in low normal levels without medication, likely 2/2 hypoalbuminemia 2/2 poor nutritional status 2/2 Poor PO intake -recalled Cardiology for re-evaluation. NO new recommendations at this time -repeat UA negative, no proteinuria -c/w BP monitor Hiatal hernia/GERD -c/w protonix 20 mg PO daily -c/w Ranitidine 300 mg HS Hyperlipidemia - resume pravastatin 20 mg po hs Cognitive impairment - aricept 10 mg HS Insomnia/anxiety - Mirtazapine 30 mg PO HS DVT prophylaxis - Lovenox 40 mg sc
[2018-08-08] MEDS: Pantoprazole 20 mg EC Tab PO SCH (09:32)
[2018-08-08] MEDS: Enoxaparin 40 mg Syringe SC SCH (09:32)
[2018-08-08] MEDS: raNITIdine HCl 150 mg/10 ml Soln Cup PO SCH (22:05)
[2018-08-08] MEDS: Pravastatin Sodium 20 MG TAB PO SCH (22:05)
[2018-08-09] MEDS: TRIMETHOPRIM IVPB SCH ×3 (01:11→17:45)
[2018-08-09] MEDS: WATER IVPB SCH ×3 (01:11→17:45)
[2018-08-09] MEDS: SULFAMETHOXAZOLE IVPB SCH ×3 (01:11→17:45)
[2018-08-09] MEDS: DEXTROSE 5% IVPB SCH ×3 (01:11→17:45)
--- NOTE | 2018-08-09 06:55 | CP.PCM.PN ---
Subjective - Date & Time of Evaluation Date of Evaluation: 08/09/18 Time of Evaluation: 08:10 - Subjective Subjective: Patient was seen and examined at bedside in telemetry unit this morning. Seen alert, awake and oriented x 3 this morning. No events overnight. Has been afebrile, and rest of VS stable. Patient has being getting Bactrim and Acyclovir as scheduled. Mental status in her baseline. Checked with pharmacy yesterday: patient needs 4 more doses of Bactrim and acyclovir to complete 10 days and 5 days of treatment respectively. Today will be last day of Bactrim and Acyclovir. Wound Vac was changed yesterday by surgery. Objective - Vital Signs/Intake and Output Vital Signs (last 24 hours): Temp Pulse Resp BP Pulse Ox 97.8 F 88 18 115/55 L 95 08/09/18 05:14 08/09/18 05:14 08/09/18 05:14 08/09/18 05:14 08/09/18 05:14 - Medications Medications: Current Medications Acetaminophen (Tylenol 325mg Tab) 650 mg PO Q4 PRN PRN Reason: Pain, Mild (1-3) Capsaicin (Trixaicin Cream) 1 applic TOP Q6 [facility] Last Admin: 08/09/18 05:00 Dose: 1 applic Dimethicone (Proshield Plus Skin Protectant) 1 applic TOP Q8 PRN PRN Reason: Incontinece Last Admin: 08/06/18 15:08 Dose: 1 applic Donepezil HCl (Aricept) 10 mg NG HS [facility] Last Admin: 08/08/18 22:06 Dose: 10 mg Enoxaparin Sodium (Lovenox) 40 mg SC DAILY [facility]; Protocol Last Admin: 08/08/18 09:32 Dose: 40 mg Trimethoprim/Sulfamethoxazole (360 mg/ Dextrose) 340 mls @ 226.667 mls/hr IVPB Q8 [facility]; Protocol Last Admin: 08/09/18 01:11 Dose: 226.667 mls/hr Acyclovir 600 mg/ Sodium (Chloride) 100 mls @ 100 mls/hr IVPB Q8 [facility]; Protocol Last Admin: 08/09/18 00:30 Dose: 100 mls/hr Mirtazapine (Remeron) 30 mg PO HS [facility] Last Admin: 08/08/18 22:05 Dose: 30 mg Pantoprazole Sodium (Protonix Ec Tab) 20 mg PO DAILY [facility] Last Admin: 08/08/18 09:32 Dose: 20 mg Pravastatin Sodium (Pravachol) 20 mg PO [facility] Last Admin: 08/08/18 22:05 Dose: 20 mg Quetiapine Fumarate (Seroquel) 25 mg PO [facility] Last Admin: 08/08/18 22:06 Dose: 25 mg Ranitidine HCl (Zantac Soln 5ml) 300 mg PO [facility] Last Admin: 08/08/18 22:05 Dose: 300 mg - Labs Labs: 08/07/18 05:10 08/05/18 12:10 PT 14.9 Seconds (9.8-13.1) H 07/18/18 05:00 INR 1.3 07/18/18 05:00 APTT 25.6 Seconds (25.6-37.1) 07/18/18 05:00 - Skin Additional comments: Constitutional Appears: Non-toxic, No Acute Distress - ENT Exam ENT Exam: Mucous Membranes Dry - Respiratory Exam Respiratory Exam: Clear to Ausculation Bilateral , NORMAL BREATHING PATTERN - Cardiovascular Exam Cardiovascular Exam: REGULAR RHYTHM, +S1, +S2 - GI/Abdominal Exam GI & Abdominal Exam: Soft, Normal Bowel Sounds. absent: Guarding, Rigid, Tenderness Additional comments: Wound Vac in placed - Extremities Exam Extremities Exam: Pedal Edema. absent: Calf Tenderness Additional comments: Edema 3+ of lower extremities,unchanged since yesterday - Neurological Exam Neurological Exam: Alert, Awake, Oriented x 3 Assessment and Plan - Assessment and Plan (Free Text) Assessment: 87 F who presents with septic shock, acute respiratory failure, elevated lac simon, s/p exploratory laparotomy, lysis of adhesion, and repair of enterotomy x2 for SBO POD 28. Postoperatively her oral intake has been poor and her nutritional status has also been poor resulting in severe hypoalbuminemia. Patient with a fair amount of anasarca and low BP. Presenting with episodes o confusion, restlessness, and incoherent speech. Transfer to [facility] on hold due to changes in mental status. Plan: AMS -improving, in her baseline -once stable she could be transferred to [facility] -likely to delirium in elderly with medical illness -h/o Dementia -associated with possible " visual hallucinations", restlessness, anxiety -repeat BMP, Mag, phos, vitamin B 12 unremarkable, RPR: non reactive -Psychiatrist consulted, recs are appreciated. As per Psych, likely had acute delirium secondary to multiple medical issues vs worsening major neurocognitive disorder. No recs at this time -c/w seroquel 25 mg PO HS -as per PCP patient had similar episode in the past, h/o dementia with intermittent episodes of confusion Diarrheas -no more episodes since yesterday, poss 2/2 antibiotic and liquid diet ( pt has been drinking just ensure and soup because poor appetite) -non bloody -test for C diff negative -DC contact isolation Stenotrophomonas maltophilia culture infection in Bronchial culture -Bronchial culture Stenotrophomonas maltophilia noted in final report -checked with pharmacy: c/w Bactrim 360 mg IV Q8, needs 4 more doses to complete 10 days of treatment -per ID recs will complete 10 days of Bactrim (correction: last day :08/09/18) -CBC this AM: WBC: WNL -repeat CXR on 08/02/18 reported improvement -f/u ID recommendations 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 PMD discussed with ID. AMS likely secondaryto acute delirium secondary to multiple medical issues vs worsening major neurocognitive disorder. -checked with pharmacy: patient will need 4 more doses (last day 08/09). 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 Deconditioning/weakness/Hypoalbuminemia -improving hypoalbuminemia -repeat albumin 3.1 -dc Vitamin B complex due to elevated Vitamin B 12 levels -[employer] consult for nutritional support and supplementation -c/w Pros-tat, and Ensure -CMP/Mag/Phos this morning WNL -repeat UA negative, no proteinuria -promote oral intake -GFR >60, no proteinuria seen in last UA done on admission -c/w physical therapy Right PICC line( right arm) -for IV meds Abdominal open wound s/p Small bowel obstruction/ s/p ex laparotomy POD 28 -Wound vac dressing changes every 3 days while inpatient by surgical team. Last changed 08/08/18. Next change scheduled for 08/09 -completed 14 days of empiric meropnem and flagyl for intra-abd Infection as per ID recs -completed 8 days of vanco as per ID recs Small bowel obstruction/ s/p ex laparotomy POD 28 - General surgery, Dr. Bullock on board - Pain management - Tolerating PO - encouraged incentive spirometry and OOB -Clear for discharge from surgical standpoint Bilateral Pleural effusion b/l Atelectasis -Repeat chest CT: stable pleural effusions, bibasilar atelectasis -Pulmonology consult, recs appreciated -s/p flexible broncho 07/25/18 -Bronchial culture Stenotrophomonas maltophilia noted in final report -c/w Bactrim 15 mg/kg Q8 h as per ID recommendations -on NC at 2 lpm -respiratory therapy -Encouraged PT and OOB -continue with incentive spirometer S/p Non-Q wave myocardial infarction probably secondary to a brief period of hypotension Cardiology was consulted, Dr. Barone. h/o HTN stable -had BP in low normal levels without medication, likely 2/2 hypoalbuminemia 2/2 poor nutritional status 2/2 Poor PO intake -recalled Cardiology for re-evaluation. NO new recommendations at this time -repeat UA negative, no proteinuria -c/w BP monitor Hiatal hernia/GERD -c/w protonix 20 mg PO daily -c/w Ranitidine 300 mg HS Hyperlipidemia - resume pravastatin 20 mg po hs Cognitive impairment - aricept 10 mg HS Insomnia/anxiety - Mirtazapine 30 mg PO HS DVT prophylaxis - Lovenox 40 mg sc
--- NOTE | 2018-08-09 08:14 | CP.PCM.PN ---
<Patti Higginbotham - Last Filed: 08/09/18 08:17> Subjective - Date & Time of Evaluation Date of Evaluation: 08/09/18 Time of Evaluation: 08:11 - Subjective Subjective: General Surgery Notes: Mendez Patient seen and examined this morning. Patient resting comfortably and in NAD. Denies any pain to the surgical site at this time. Denies nausea/vomiting/fever/shortness of breath. Objective - Vital Signs/Intake and Output Vital Signs (last 24 hours): Temp Pulse Resp BP Pulse Ox 97.8 F 88 18 115/55 L 95 08/09/18 05:14 08/09/18 05:14 08/09/18 05:14 08/09/18 05:14 08/09/18 05:14 - Medications Medications: Current Medications Acetaminophen (Tylenol 325mg Tab) 650 mg PO Q4 PRN PRN Reason: Pain, Mild (1-3) Capsaicin (Trixaicin Cream) 1 applic TOP Q6 [facility] Last Admin: 08/09/18 05:00 Dose: 1 applic Dimethicone (Proshield Plus Skin Protectant) 1 applic TOP Q8 PRN PRN Reason: Incontinece Last Admin: 08/06/18 15:08 Dose: 1 applic Donepezil HCl (Aricept) 10 mg NG HS [facility] Last Admin: 08/08/18 22:06 Dose: 10 mg Enoxaparin Sodium (Lovenox) 40 mg SC DAILY [facility]; Protocol Last Admin: 08/08/18 09:32 Dose: 40 mg Trimethoprim/Sulfamethoxazole (360 mg/ Dextrose) 340 mls @ 226.667 mls/hr IVPB Q8 [facility]; Protocol Last Admin: 08/09/18 01:11 Dose: 226.667 mls/hr Acyclovir 600 mg/ Sodium (Chloride) 100 mls @ 100 mls/hr IVPB Q8 [facility]; Protocol Last Admin: 08/09/18 00:30 Dose: 100 mls/hr Mirtazapine (Remeron) 30 mg PO HS [facility] Last Admin: 08/08/18 22:05 Dose: 30 mg Pantoprazole Sodium (Protonix Ec Tab) 20 mg PO DAILY [facility] Last Admin: 08/08/18 09:32 Dose: 20 mg Pravastatin Sodium (Pravachol) 20 mg PO HS [facility] Last Admin: 08/08/18 22:05 Dose: 20 mg Quetiapine Fumarate (Seroquel) 25 mg PO HS [facility] Last Admin: 08/08/18 22:06 Dose: 25 mg Ranitidine HCl (Zantac Soln 5ml) 300 mg PO HS [facility] Last Admin: 08/08/18 22:05 Dose: 300 mg - Labs Labs: 08/07/18 05:10 08/05/18 12:10 PT 14.9 Seconds (9.8-13.1) H 07/18/18 05:00 INR 1.3 07/18/18 05:00 APTT 25.6 Seconds (25.6-37.1) 07/18/18 05:00 - Constitutional Appears: Non-toxic, No Acute Distress - Head Exam Head Exam: ATRAUMATIC, NORMOCEPHALIC - Eye Exam Eye Exam: Normal appearance - Respiratory Exam Respiratory Exam: NORMAL BREATHING PATTERN - Cardiovascular Exam Cardiovascular Exam: REGULAR RHYTHM - GI/Abdominal Exam GI & Abdominal Exam: Soft Additional comments: Surgical wound with granular base, no clinical signs of infection at this time - Extremities Exam Extremities Exam: absent: Calf Tenderness - Neurological Exam Neurological Exam: Alert, Awake, Oriented x3 - Psychiatric Exam Psychiatric exam: Normal Affect, Normal Mood Assessment and Plan - Assessment and Plan (Free Text) Assessment: 87 year old female s/p ex-lap SAILAJA, Repair of enterotomies*2 POD#28 Plan: - Wound vac changed today - Next wound vac change (08/12/2018) - Patient remains clear from surgical standpoint - Further recs per Dr. Quintanilla PGY 1 <Wilder Bullock - Last Filed: 08/12/18 17:30> Objective - Vital Signs/Intake and Output Vital Signs (last 24 hours): Temp Pulse Resp BP Pulse Ox 97.9 F 89 20 110/57 L 95 08/10/18 12:00 08/10/18 12:00 08/10/18 12:00 08/10/18 12:00 08/10/18 12:00 - Labs Labs: 08/07/18 05:10 08/05/18 12:10 PT 14.9 Seconds (9.8-13.1) H 07/18/18 05:00 INR 1.3 07/18/18 05:00 APTT 25.6 Seconds (25.6-37.1) 07/18/18 05:00 Assessment and Plan - Assessment and Plan (Free Text) Plan: All medical record entries made by the resident were at my direction. I have reviewed the chart and agree that the record accurately reflects my personal performance of the history, physical exam, and medical decision making.
[2018-08-09] MEDS: Enoxaparin 40 mg Syringe SC SCH (09:33)
[2018-08-09] MEDS: Pantoprazole 20 mg EC Tab PO SCH (09:33)
[2018-08-09] MEDS: Pravastatin Sodium 20 MG TAB PO SCH (22:23)
[2018-08-09] MEDS: raNITIdine HCl 150 mg/10 ml Soln Cup PO SCH (22:26)
--- NOTE | 2018-08-10 06:55 | CP.PCM.DIS ---
Provider - Provider Date of Admission: 07/10/18 17:28 Attending physician: Ger Orozco MD Primary care physician: Surgical consults: Dr. Bullock Psychiatry: Dr. Monterroso Consults: 07/10/18 19:04 General Surgery Consult Stat Comment: Consulting Provider: Wilder Bullock Consulting Physician: Wilder Bullock Reason for Consult: small bowel obstruction; large hiatal hernia 07/11/18 01:06 Case Management Referral Routine Comment: Physician Instructions: Reason For Exam: Reason for Referral: Manager Mortgage Eval Social Work Referral Routine Comment: discharge planning Physician Instructions: Reason For Exam: discharge planning 07/12/18 18:21 Hematology Oncology Consult Routine Comment: Consulting Provider: Stevan Ray Consulting Physician: Stevan Ray Reason for Consult: leukopenia Infectious Disease Consult Routine Comment: Consulting Provider: Fidel Hong Consulting Physician: Fidel Hong Reason for Consult: sepsis after SBO 07/15/18 01:05 Cardiology Consult Routine Comment: Consulting Provider: Henri Barone V Consulting Physician: Henri Barone V Reason for Consult: A Fib with RVR 07/16/18 08:56 Pulmonology Consult Routine Comment: Postoperative acute respiratory failure Consulting Provider: Andry Bella Consulting Physician: Andry Bella Reason for Consult: Postoperative acute respiratory failure 07/23/18 06:44 Case Management Referral Routine Comment: Physician Instructions: Patient may need MANDEEP Reason For Exam: Reason for Referral: Discharge Planning 07/23/18 10:06 Physician Consult Routine Comment: Consulting Provider: Brien Duque Consulting Physician: Brien Duque Reason for Consult: PICC line revision 08/04/18 08:31 Psychiatry Consult Routine Comment: Consulting Provider: Padmini Monterroso Consulting Physician: Padmini Monterroso Reason for Consult: confusion/hallucinations Time Spent in preparation of Discharge (in minutes): 30 Diagnosis - Discharge Diagnosis (1) Cognitive impairment Status: Chronic Comment: stable at this time, in her baseline. Oriented x3 (2) Infection due to Stenotrophomonas maltophilia Status: Acute Comment: completed 10 days of Bactrim IV as per ID recs (3) Herpes simplex viral infection Status: Acute Comment: on bronchial wash. Completed 5 days of Acyclovir IV as per ID recs. (4) PIC line (peripherally inserted central catheter) removal Status: Acute Comment: removed today before DC (5) Hiatal hernia Status: Chronic (6) S/P exploratory laparotomy Status: Acute Comment: s/p SBO. C/W Wound vac care every 3 days as recommended by surgery. F/u with surgery as outpatient. (7) Hypoalbuminemia Status: Acute Comment: ensure and pro-stat Hospital Course - Lab Results Lab Results: Micro Results 07/25/18 12:46 Other: Please Indicate Fungal Culture - Preliminary NO FUNGUS GROWTH IN 1 WEEK. 07/25/18 12:46 Other: Please Indicate Mycobacterial Culture - Preliminary 07/25/18 11:00 Bronchial Washings Bronchial Culture - Final Stenotrophomonas Maltophilia 07/21/18 20:12 Naris MRSA Culture (Admit) - Final MRSA NOT DETECTED 07/14/18 17:00 Blood-Venous Blood Culture - Final NO GROWTH AFTER 5 DAYS 07/14/18 17:00 Blood-Venous Gram Stain - Final TEST NOT PERFORMED 07/14/18 15:58 Blood-Venous Blood Culture - Final NO GROWTH AFTER 5 DAYS 07/14/18 15:58 Blood-Venous Gram Stain - Final TEST NOT PERFORMED 07/13/18 16:00 Blood-Venous Blood Culture - Final NO GROWTH AFTER 5 DAYS 07/13/18 16:00 Blood-Venous Gram Stain - Final TEST NOT PERFORMED 07/13/18 17:00 Blood-Venous Blood Culture - Final NO GROWTH AFTER 5 DAYS 07/13/18 17:00 Blood-Venous Gram Stain - Final TEST NOT PERFORMED 07/14/18 16:00 Sputum Gram Stain - Final 07/14/18 16:00 Sputum Sputum Culture - Final No growth. 07/13/18 17:21 Urine,Elizondo Urine Culture - Final No Growth (<1,000 CFU/ML) 07/10/18 19:55 Urine Random Urine Culture - Final Gram Negative [place] Most Recent Lab Values WBC 8.0 K/uL (4.8-10.8) 08/07/18 05:10 RBC 3.27 Mil/uL (3.80-5.20) L 08/07/18 05:10 Hgb 9.9 g/dL (12.0-16.0) L 08/07/18 05:10 Hct 30.3 % (34.0-47.0) L 08/07/18 05:10 MCV 92.6 fl (81.0-99.0) 08/07/18 05:10 MCH 30.3 pg (27.0-31.0) 08/07/18 05:10 MCHC 32.7 g/dL (33.0-37.0) L 08/07/18 05:10 RDW 14.7 % (11.5-14.5) H 08/07/18 05:10 Plt Count 269 K/uL (130-400) 08/07/18 05:10 MPV 7.8 fl (7.2-11.7) 08/07/18 05:10 Neut % (Auto) 67.3 % (50.0-75.0) 08/07/18 05:10 Lymph % (Auto) 19.5 % (20.0-40.0) L 08/07/18 05:10 Carson % (Auto) 10.3 % (0.0-10.0) H 08/07/18 05:10 Eos % (Auto) 2.2 % (0.0-4.0) 08/07/18 05:10 Baso % (Auto) 0.7 % (0.0-2.0) 08/07/18 05:10 Neut # (Auto) 5.4 K/uL (1.8-7.0) 08/07/18 05:10 Lymph # (Auto) 1.6 K/uL (1.0-4.3) 08/07/18 05:10 Carson # (Auto) 0.8 K/uL (0.0-0.8) 08/07/18 05:10 Eos # (Auto) 0.2 K/uL (0.0-0.7) 08/07/18 05:10 Baso # (Auto) 0.1 K/uL (0.0-0.2) 08/07/18 05:10 Total Counted Cancelled 07/15/18 05:40 Neutrophils % (Manual) 76 % (42-75) H 07/12/18 23:17 Band Neutrophils % 6 % (0-2) H 07/12/18 23:17 Lymphocytes % (Manual) 7 % (20-50) L 07/12/18 23:17 Reactive Lymphs % 3 % (0-0) H 07/12/18 23:17 Monocytes % (Manual) 8 % (0-10) 07/12/18 23:17 Eosinophils % (Manual) Cancelled 07/15/18 05:40 Basophils % (Manual) Cancelled 07/15/18 05:40 Metamyelocytes % Cancelled 07/15/18 05:40 Myelocytes % Cancelled 07/15/18 05:40 Promyelocytes % Cancelled 07/15/18 05:40 Blast Cells % Cancelled 07/15/18 05:40 Plasma Cell % (Manual) Cancelled 07/15/18 05:40 Nucleated RBC % Cancelled 07/15/18 05:40 Hypersegmented Polys Cancelled 07/15/18 05:40 Smudge Cells Cancelled 07/15/18 05:40 Toxic Granulation Cancelled 07/15/18 05:40 Dohle Bodies Cancelled 07/15/18 05:40 Reyes Rods Cancelled 07/15/18 05:40 Platelet Estimate Normal (NORMAL) 07/12/18 23:17 Plt Clumps, EDTA Cancelled 07/15/18 05:40 Large Platelets Cancelled 07/15/18 05:40 Giant Platelets Cancelled 07/15/18 05:40 RBC Morphology Normal (NORMAL) 07/10/18 13:10 Polychromasia Cancelled 07/15/18 05:40 Hypochromasia (manual) Slight 07/12/18 23:17 Poikilocytosis (manual Cancelled 07/15/18 05:40 Basophilic Stippling Cancelled 07/15/18 05:40 Anisocytosis (manual) Slight 07/12/18 23:17 Microcytosis (manual) Cancelled 07/15/18 05:40 Macrocytosis (manual) Cancelled 07/15/18 05:40 Spherocytes Cancelled 07/15/18 05:40 Sickle Cells Cancelled 07/15/18 05:40 Target Cells Cancelled 07/15/18 05:40 Tear Drop Cells Cancelled 07/15/18 05:40 Ovalocytes Cancelled 07/15/18 05:40 Stomatocytes Cancelled 07/15/18 05:40 Helmet Cells Cancelled 07/15/18 05:40 Cameron-Justice Addition Bodies Cancelled 07/15/18 05:40 [place] Cells Cancelled 07/15/18 05:40 Acanthocytes (Spur) Moderate 07/12/18 23:17 Rouleaux Cancelled 07/15/18 05:40 Schistocytes Cancelled 07/15/18 05:40 PT 14.9 Seconds (9.8-13.1) H 07/18/18 05:00 INR 1.3 07/18/18 05:00 APTT 25.6 Seconds (25.6-37.1) 07/18/18 05:00 Fibrinogen 589 mg/dl (200-400) H 07/18/18 05:00 pCO2 46 mm/Hg (35-45) H 07/15/18 10:43 pO2 91 mm/Hg (80-100) 07/15/18 10:43 HCO3 23.9 mmol/L (21-28) 07/15/18 10:43 ABG pH 7.34 (7.35-7.45) L 07/15/18 10:43 ABG Total CO2 26.2 mmol/L (22-28) 07/15/18 10:43 ABG O2 Saturation 98.8 % (95-98) H 07/15/18 10:43 ABG O2 Content 15.1 ML/dL (15-23) 07/14/18 16:05 ABG Base Excess -1.3 mmol/L (-2.0-3.0) 07/15/18 10:43 ABG Hemoglobin 11.1 g/dL (11.7-17.4) L 07/14/18 16:05 ABG Carboxyhemoglobin 1.3 % (0.5-1.5) 07/14/18 16:05 POC ABG HHb (Measured) 1.2 % (0.0-5.0) 07/14/18 16:05 ABG Methemoglobin 1.7 % (0.0-3.0) 07/14/18 16:05 ABG O2 Capacity 15.3 mL/dL (16-24) L 07/14/18 16:05 [place]ha Test Yes 07/15/18 10:43 ABG Potassium 3.5 mmol/L (3.6-5.2) L 07/15/18 10:43 A-a O2 Difference 208.0 mm/Hg 07/15/18 10:43 Hgb O2 Saturation 95.8 % (95.0-98.0) 07/14/18 16:05 Sodium 138.0 mmol/L (132-148) 07/15/18 10:43 Chloride 111.0 mmol/L (98-107) H 07/15/18 10:43 Glucose 115 mg/dL (65-105) H 07/15/18 10:43 Lactate 1.2 mmol/L (0.7-2.1) 07/15/18 10:43 Vent Mode Cpap+ps 07/14/18 16:05 Mechanical Rate 10 07/13/18 04:22 FiO2 50.0 % 07/15/18 10:43 Tidal Volume 400 07/13/18 04:22 PEEP 5 07/14/18 16:05 Pressure Support 5 07/14/18 16:05 CPAP 5 07/13/18 09:00 Sodium 134 mmol/l (132-148) 08/05/18 12:10 Potassium 4.2 MMOL/L (3.6-5.0) 08/05/18 12:10 Chloride 100 mmol/L (98-107) 08/05/18 12:10 Carbon Dioxide 25 mmol/L (22-30) 08/05/18 12:10 Anion Gap 13 (10-20) 08/05/18 12:10 BUN 7 mg/dl (7-17) 08/05/18 12:10 Creatinine 0.7 mg/dl (0.7-1.2) 08/05/18 12:10 Est GFR ( Amer) > 60 08/05/18 12:10 Est GFR (Non-Af Amer) > 60 08/05/18 12:10 POC Glucose (mg/dL) 103 mg/dL (65-110) 08/10/18 05:39 Random Glucose 72 mg/dL (65-105) 08/05/18 12:10 Lactic Acid 1.2 mmol/L (0.7-2.1) 07/15/18 23:00 Calcium 9.1 mg/dL (8.4-10.2) 08/05/18 12:10 Phosphorus 4.2 mg/dl (2.5-4.5) 08/05/18 12:10 Magnesium 1.9 MG/DL (1.6-2.3) 08/05/18 12:10 Total Bilirubin 0.2 mg/dl (0.2-1.3) 08/05/18 12:10 AST 31 U/L (14-36) 08/05/18 12:10 ALT 28 U/L (9-52) 08/05/18 12:10 Alkaline Phosphatase 65 U/L (38-126) 08/05/18 12:10 Troponin I 0.2380 ng/mL (0.00-0.120) H* 07/16/18 04:20 NT-Pro-B Natriuret Pep 627 pg/ml (0-900) 07/12/18 23:17 Total Protein 5.9 G/DL (6.3-8.2) L 08/05/18 12:10 Albumin 3.1 g/dL (3.5-5.0) L D 08/05/18 12:10 Globulin 2.8 gm/dL (2.2-3.9) 08/05/18 12:10 Albumin/Globulin Ratio 1.1 (1.0-2.1) 08/05/18 12:10 Lipase 115 U/L (23-300) 07/10/18 13:10 Vitamin B12 > 1000 pg/mL (239-931) H 08/05/18 12:30 Procalcitonin 99.94 NG/ML (0.19-0.49) H 07/12/18 04:30 Cortisol AM Sample 63.4 ug/dL (4.46-22.7) H 07/13/18 12:03 Arterial Blood Potassium 3.5 mmol/L (3.6-5.2) L 07/15/18 10:43 Urine Color Yellow (YELLOW) 08/02/18 00:51 Urine Clarity Cloudy (Clear) 08/02/18 00:51 Urine pH 8.0 (5.0-8.0) 08/02/18 00:51 Ur Specific [place] 1.006 (1.003-1.030) 08/02/18 00:51 Urine Protein Negative mg/dL (NEGATIVE) 08/02/18 00:51 Urine Glucose (UA) Neg mg/dL (NEGATIVE) 08/02/18 00:51 Urine Ketones Negative mg/dL (NEGATIVE) 08/02/18 00:51 Urine Blood Negative (NEGATIVE) 08/02/18 00:51 Urine Nitrate Negative (NEGATIVE) 08/02/18 00:51 Urine Bilirubin Negative (NEGATIVE) 08/02/18 00:51 Urine Urobilinogen 0.2-1.0 mg/dL (0.2-1.0) 08/02/18 00:51 Ur Leukocyte Esterase Neg Nori/uL (Negative) 08/02/18 00:51 Urine RBC (Auto) 2 /hpf (0-3) 08/02/18 00:51 Urine Microscopic WBC 1 /hpf (0-5) 08/02/18 00:51 Ur Squamous Epith Cells 1 /hpf (0-5) 08/02/18 00:51 Hyaline Casts 0-2 /hpf (0-2) 08/02/18 00:51 Vancomycin Trough 10.4 ug/mL (5.0-10.0) H 07/20/18 04:30 RPR Nonreactive (NONREACTIVE) 08/05/18 12:10 C. difficile Ag & Toxin Negative (NEGATIVE) 08/08/18 18:07 HSV I IgG Ab >58.00 index H 08/03/18 18:45 HSV II IgG <0.90 index 08/03/18 18:45 Blood Type A POSITIVE 07/10/18 20:00 Antibody Screen Negative 07/10/18 20:00 BBK History Checked Patient has bt 07/10/18 20:00 - Hospital Course Hospital Course: 87 F who presents with septic shock, acute respiratory failure, elevated lactate, s/p exploratory laparotomy, lysis of adhesion, and repair of enterotomy x2 for SBO POD 29. Postoperatively her oral intake has been poor and her nutr itional status has also been poor resulting in severe hypoalbuminemia. Patient with a fair amount of anasarca and low BP. Completed 14 days of empiric meropnem and flagyl for intra-abd Infection and 8 days of vanco as per ID recs. Open wound managed with wound vac, which was changed by surgery every 3 days. Arrangement made by social media intern for wound vac care at [facility] after transfer. Had post-op respiratory failure on PRVC. Left pleural effusion from fluid overload. On POD #1 of surgery patient was transferred to ICU s/p ex lap and repair of enterotomies x2. Patient had episodes of SVT during procedure and reintubated in PACU for airway protection. Was on levephed 20 mcg/min and vasopressin 0.03 units/min to maintain MAP >60. Had Afib episodes, and received amiodarone. On admission had Bilateral Pleural effusion b/l Atelectasis. -Pulmonology was consulted, Dr. Bella. Broncoscopy done. Bronchial culture Stenotrophomonas maltophilia noted in final report. Final cytology report of lungs washings: reported as negative for malignancy, 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. On admission had a Non-Q wave myocardial infarction probably secondary to a brief period of hypotension. Cardiology was consulted, Dr. Barone. On admission patient had multiple episodes of confusion, restlessness, and incoherent speech. Initially side effects from acyclovir was considered because altered mental status episodes started on second day of acyclovir, and acyclovir was held. Also patient was started on seroquel 25 mg HS to managed her symptoms. After 2-3 days patient returned to her mental status baseline. Noted that confusion, hallucinations, and disorientation were mainly at night. Psychiatrist was consulted. Patient's symptoms likely 2/2 acute delirium secondary to multiple medical issues vs worsening major neurocognitive disorder. Acyclovir was resumed and patient's mental status continue to be in her baseline while on acyclovir. Side effects from acyclovir was r/o. Patient completed 10 days of Bactrim and 5 days of acyclovir as per ID recommendations to treat Stenotrophomonas maltophilia, and Herpes viral infection respectively which were reported in pathology of lung washing. Patient had diarrheas while in Bactrim. C diff negative. Patient will be discharged on probiotic. Noted to have hypoalbuminemia on admission likely 2/2 poor po intake due to poor appetite. No evidence of proteinuria in UA x 2 . Dietitian was consulted. Placed on ensuse and pro-stat. Had a Right arm PICC line for IV meds, which was removed today without any complains. Today seen and examined at bedside. Patient is seen awake, alert, and oriented x 3. Patient is sitting in a chair reading. No complains at this eval. Stable for DC to [facility]. - Date & Time of H&P Date of H&P: 07/10/18 Time of H&P: 19:35 Discharge Exam - Head Exam Head Exam: ATRAUMATIC, NORMOCEPHALIC - Eye Exam Eye Exam: Normal appearance - ENT Exam ENT Exam: Mucous Membranes Moist - Respiratory Exam Respiratory Exam: Clear to PA & Lateral, NORMAL BREATHING PATTERN. absent: Rales, Rhonchi, Wheezes, Respiratory Distress - Cardiovascular Exam Cardiovascular Exam: REGULAR RHYTHM, +S1, +S2 - GI/Abdominal Exam GI & Abdominal Exam: Normal Bowel Sounds, Soft. absent: Guarding, Rebound, Rigid, Tenderness Additional comments: Wound Vac in placed - Extremities Exam Additional comments: Stable pitting 3+ edema of lower extremities - Back Exam Back exam: NORMAL INSPECTION. absent: CVA tenderness (L), CVA tenderness (R) - Neurological Exam Neurological exam: Alert, Oriented x3 - Psychiatric Exam Psychiatric exam: Normal Affect, Normal Mood - Skin Skin Exam: Dry, Intact, Normal Color Discharge Plan - Discharge Medications Prescriptions: Lactobacillus Acidophilus [Lactobacillus] 2 cap PO BID #120 cap Multivit-Min/FA/Lycopen/Lutein [Adults 50 Plus Multivitamin] 1 each PO DAILY #30 tablet - Follow Up Plan Condition: STABLE Disposition: REHAB FACILITY/REHAB UNIT Instructions: Small Bowel Obstruction (DC) Additional Instructions: Patient needs protein supplementations with ensure and Pro-stat. Referrals: Wilder Bullock MD [Staff Provider] - Ger Orozco MD [Family Provider] -
[2018-08-10 08:14] VITALS: RESP 20
[2018-08-10] MEDS: Enoxaparin 40 mg Syringe SC SCH (09:45)
[2018-08-10] MEDS: Pantoprazole 20 mg EC Tab PO SCH (09:46)
[2018-08-10 12:12] VITALS: BP 110/57; PULSE 89; TEMP 97.9; O2SAT 95
== END 2018-08-10 15:05 | DRG 853 ==
LOC: H.ER 13:00 → H.ERHOLD 17:28 → H.MEDSURG1 18:59 → H.ICU/CCU 07-12 21:07 → H.TEL 07-21 17:41
PROVIDERS: ADMIT Family Medicine; ATTEND Family Medicine
PROC: 03HB3DZ Insertion of Intraluminal Device into Right Radial Artery, Percutaneous Approach (ICD-10-PCS; 2018-07-12)
PROC: 0BH17EZ Insertion of Endotracheal Airway into Trachea, Via Natural or Artificial Opening (ICD-10-PCS; 2018-07-12)
PROC: 5A1945Z Respiratory Ventilation, 24-96 Consecutive Hours (ICD-10-PCS; 2018-07-12)
PROC: 0DQ80ZZ Repair Small Intestine, Open Approach (ICD-10-PCS; principal; 2018-07-12 14:00)
PROC: 3E0G76Z Introduction of Nutritional Substance into Upper GI, Via Natural or Artificial Opening (ICD-10-PCS; 2018-07-14)
PROC: 02HV33Z Insertion of Infusion Device into Superior Vena Cava, Percutaneous Approach (ICD-10-PCS; 2018-07-15)
PROC: B518ZZA Fluoroscopy of Superior Vena Cava, Guidance (ICD-10-PCS; 2018-07-15)
PROC: B548ZZA Ultrasonography of Superior Vena Cava, Guidance (ICD-10-PCS; 2018-07-15)
PROC: 0BD78ZX Extraction of Left Main Bronchus, Via Natural or Artificial Opening Endoscopic, Diagnostic (ICD-10-PCS; 2018-07-25)
PROC: 0BDC8ZX Extraction of Right Upper Lung Lobe, Via Natural or Artificial Opening Endoscopic, Diagnostic (ICD-10-PCS; 2018-07-25)
DX: A41.9 Sepsis, unspecified organism (principal); G93.41 Metabolic encephalopathy; I21.4 Non-ST elevation (NSTEMI) myocardial infarction; J18.9 Pneumonia, unspecified organism; J95.821 Acute postprocedural respiratory failure; K65.9 Peritonitis, unspecified; R65.21 Severe sepsis with septic shock; K56.50 Intestinal adhesions [bands], unspecified as to partial versus complete obstruction; B00.89 Other herpesviral infection; D68.8 Other specified coagulation defects; F05 Delirium due to known physiological condition; I47.1 Supraventricular tachycardia; I97.88 Other intraoperative complications of the circulatory system, not elsewhere classified; J98.11 Atelectasis; B96.89 Other specified bacterial agents as the cause of diseases classified elsewhere; D63.8 Anemia in other chronic diseases classified elsewhere; D69.6 Thrombocytopenia, unspecified; D70.9 Neutropenia, unspecified; E78.00 Pure hypercholesterolemia, unspecified; E78.5 Hyperlipidemia, unspecified; E86.1 Hypovolemia; E87.6 Hypokalemia; F01.50 Vascular dementia, unspecified severity, without behavioral disturbance, psychotic disturbance, mood disturbance, and anxiety; F02.80 Dementia in other diseases classified elsewhere, unspecified severity, without behavioral disturbance, psychotic disturbance, mood disturbance, and anxiety; G30.9 Alzheimer's disease, unspecified; I11.0 Hypertensive heart disease with heart failure; I25.10 Atherosclerotic heart disease of native coronary artery without angina pectoris; I48.91 Unspecified atrial fibrillation; I50.9 Heart failure, unspecified; I95.89 Other hypotension; K21.9 Gastro-esophageal reflux disease without esophagitis; K27.9 Peptic ulcer, site unspecified, unspecified as acute or chronic, without hemorrhage or perforation; K44.9 Diaphragmatic hernia without obstruction or gangrene; R32 Unspecified urinary incontinence; Z87.891 Personal history of nicotine dependence; Z90.49 Acquired absence of other specified parts of digestive tract; R74.8 Abnormal levels of other serum enzymes; Z78.1 Physical restraint status